=== PATIENT | female | born 1940 | race Caucasian/White ===

== ENCOUNTER 2016-08-12 21:30 | Emergency (ER) | payer OTHER ==
[~2016-08-12] VITALS: Ht 144.8 cm; Wt 68.4 kg
[~2016-08-12 21:30] MED LIST: ASPI325T45 PO; ATOR-26 PO; DIPH25CA37 PO; KETO0.5S33 OPR; LORA-741 PO; LOSA1TAB38 PO; METO-596 PO; PANT40TA PO; PRED1SUS3 OPR
[2016-08-12 21:40] VITALS: TEMP 37; Ht 144.8 cm; Wt 68.4 kg
[2016-08-12] MEDS ORDERED: DIPH25CA48 PO (22:13)
[2016-08-12] MEDS ORDERED: AMLO2.5T PO (22:13)
--- NOTE | 2016-08-12 22:27 | EMERGENCY ROOM VISIT NOTE ---
ED Visit Note First contact with patient: 21:56 Patient was seen by our PA/PIPELINER. I was involved in the patient's care and did evaluate the patient myself. I was involved in the care throughout the ER stay. The patient presents after accidentally ingesting a few of someone else's medications. The poison center was contacted and the meds and the amounts taken are not concerning. She can be discharged home.
--- NOTE | 2016-08-12 22:32 | EMERGENCY ROOM VISIT NOTE ---
ED Visit Note First contact with patient: 21:56 Chief Complaint: Wrong Meds/Belching & Shakes History of Present Illness: Patient is a 76-year-old female who presents to the emergency department for evaluation after accidentally ingesting an incorrect medication. She reports that she and her son both take her medications at 8 PM. She accidentally took 2, 300 mg lithium tablets and one 10 mg Abilify tablet at 8:10 PM. She knew immediately she took the wrong medication. She became very anxious and concerned. She felt shaky, but reports that she felt like this was related to her anxiety. She declines any other symptoms. She denies any headaches, dizziness, lightheadedness, chest pain, palpitations, shortness of breath nausea, vomiting, abdominal pain. She reports that she has been belching. She denies any other substance use or alcohol use. Medications: Reviewed and discussed with the patient. Allergies: No known allergies. PMH: Hypertension, myocardial infarction, hyperlipidemia SHx: Patient is a 76-year-old female who lives locally. ROS: All pertinent positive and negative review of systems are appropriately documented in the History of Present Illness. Physical Exam: VITAL SIGNS - Vital signs and nursing notes were reviewed. GENERAL - 76-year-old female appearing her stated age who is in no acute distress. Communicates well with provider and answers questions appropriately. SKIN - Without rashes. HEAD - NC/AT. EYES - PERRL with EOMI bilaterally. Sclera anicteric. Palpebral conjunctiva pink and moist with no injection noted. EARS - No deformities of external structures noted on gross examination bilaterally. No pain elicited with palpation of the tragus bilaterally. External auditory canals without discharge or otorrhea. Tympanic membranes pearly ramos without retraction or bulging. No fluid or purulent material visualized behind the TM. Handle of malleus, umbo, cone of light, pars tensa/ flaccid all easily visualized. NOSE - Midline and without cyanosis. No epistaxis or purulent drainage noted. Septum midline without deviation or septal hematoma noted. MOUTH/OROPHARYNX - Without perioral cyanosis. Buccal mucosa pink and moist and without leukoplakia. Tongue midline with equal elevation of palate bilaterally. No tonsillar hypertrophy, erythema, or exudates noted. NECK - Neck with FROM. Supple to palpation. No lymphadenopathy noted. No nuchal rigidity. LUNGS - Chest wall symmetric without accessory muscle use, intercostals retractions, or central cyanosis. Normal vesicular breath sounds CTA B/L. No wheezes, rales, or rhonchi appreciated. CARDIAC - RRR with S1/S2. No murmur, rubs, or gallops appreciated. ABDOMEN - Abdominal contour obese without pulsations or visible masses. BS normoactive all four quadrants. No tenderness, palpable masses, hepatosplenomegaly, or ascites noted. EXTREMITIES - No clubbing or peripheral cyanosis. No pretibial edema present. +3 /5 radial and dorsalis pedis pulses palpated throughout. +5/5 strength noted in UE/LE bilaterally. NEUROLOGIC - Cranial nerves II through XII grossly intact. Sensory intact to light touch throughout. PSYCH - A&Ox3 and cooperates fully with examiner. Pt is very pleasant and interacts well with examiner. ED Course: Patient was seen and evaluated by myself. I did have a lengthy discussion with the patient regarding her ingestion. I contacted the [facility]. They do not feel that any intervention is necessary at this point. They report that they would not have suggested the patient come to the emergency department for any monitoring with the low dose taken. They suggest refrain from driving throughout the night as well as being cautious with changes in position if awake and night secondary to drowsiness from the medications. This information was relayed to the patient. She feels much better at this time. Case was discussed with my attending physician who independently evaluated the patient and agrees with the diagnostic approach and treatment plan. Patient educated on worrisome symptoms for return visit to the emergency department. Patient discharged home in good condition. In the evaluation and treatment of this patient, the following differential diagnoses were considered: Hypoglycemia, Barbiturate Toxicity, Benzodiazepine Toxicity, Depression and Suicidality, Diabetic Ketoacidosis, Encephalitis, Ethylene Glycol Toxicity, Meningitis, Metabolic Acidosis, Opioid Toxicity, CVA, TIA, Intracranial Abnormality, Acute Psychosis, Amongst Others. Impression: Accidental Medication Ingestion Discharge Instructions: You have been seen in the emergency department today for an accidental medication ingestion. Please return to your regularly scheduled doses of medications tomorrow morning. Do not drive or operate heavy machinery for the remainder of the evening. Be cautious with changes in position through out the night. Return for any changing or worsening symptoms. Current/Historical Medications Scheduled Amlodipine (Norvasc), 2.5 MG PO QAM Aspirin (Aspirin), 325 MG PO QAM Atorvastatin (Lipitor), 80 MG PO QAM Diphenhydramine HCl (Diphenhydramine HCl), 25 MG PO HS Lorazepam (Ativan), 0.5 MG PO HS Losartan Potassium (Cozaar), 100 MG PO QAM Metoprolol Tartrate (Lopressor), 100 MG PO BID Pantoprazole (Protonix), 40 MG PO QAM Allergies Coded Allergies: NO KNOWN DRUG ALLERGIES (Verified Allergy, Unknown, ., 08/12/16) Vital Signs Date Time Temp Pulse Resp B/P Pulse Ox O2 Delivery O2 Flow Rate FiO2 08/12/16 22:42 80 18 158/85 92 08/12/16 21:40 37.0 74 18 154/88 95 Room Air Departure Information Impression Primary Impression: Accidental medication error Dispostion Home / Self-Care Condition GOOD Referrals Binu Lewis D.O. (PCP) Patient Instructions My [facility] Additional Instructions You have been seen in the emergency department today for an accidental medication ingestion. Please return to your regularly scheduled doses of medications tomorrow morning. Do not drive or operate heavy machinery for the remainder of the evening. Be cautious with changes in position through out the night. Return for any changing or worsening symptoms. Problem Qualifiers Primary Impression: Accidental medication error Encounter type: initial encounter Qualified Codes: T50.901A - Poisoning by unspecified drugs, medicaments and biological substances, accidental ( unintentional), initial encounter
[2016-08-12 22:42] VITALS: BP 158/85; PULSE 80; O2SAT 92
== END 2016-08-12 22:43 | disposition home or self-care (01) ==
LOC: EDBD 21:30 → C.EDB 21:30
DX: T43.591A Poisoning by other antipsychotics and neuroleptics, accidental (unintentional), initial encounter (principal); I10 Essential (primary) hypertension; I25.2 Old myocardial infarction; E78.5 Hyperlipidemia, unspecified; Z79.82 Long term (current) use of aspirin; Z79.899 Other long term (current) drug therapy

== ENCOUNTER 2016-11-17 11:13 | Emergency (ER) | payer OTHER ==
[~2016-11-17 11:13] MED LIST changes: +AMLO2.5T PO; +BND25CL PO; -DIPH25CA37 PO; -KETO0.5S33 OPR; -PRED1SUS3 OPR
[2016-11-17 11:15] VITALS: TEMP 36.6; Ht 147.3 cm
--- NOTE | 2016-11-17 11:36 | EMERGENCY ROOM VISIT NOTE ---
ED Visit Note First contact with patient: 11:22 CHIEF COMPLAINT: knee pain HISTORY OF PRESENT ILLNESS: This 76-year-old female patient presents to the emergency department ambulatory after sustaining an injury to the right knee when she fell 3 days ago. The patient denies any other injuries besides their knee. The patient admits to swelling and bruising. There is pain over the anterior aspect of the knee. They rate the pain as sharp and 4/10. The patient states they are able to walk on it with an antalgic gait. No numbness or tingling. No previous injuries to this knee. No ankle, foot or hip pain. She denies calf pain, tenderness or swelling. She denies fevers. REVIEW OF SYSTEMS: A 10 system review of systems was completed with positives and pertinent negatives listed in the HPI. ALLERGIES: No known drug allergies MEDICATIONS: See nursing notes PMH: Hypertension, hyperlipidemia, GERD SOCIAL HISTORY: The patient lives locally with family. She does not smoke PHYSICAL EXAM: Vital Signs: Reviewed Nurse's notes, vital signs stable. GENERAL : This is a 76-year-old female, no acute distress, but appears in pain, well- developed, well-nourished. MENTAL STATUS: Alert, oriented to person place and time, and cooperative. MUSCULOSKELETAL: The right knee is moderately swollen. There is moderate ecchymosis. There is moderate joint effusion present. The patient is tender over the anterior aspect of knee, particularly over the patella and proximal tibia. There is no significant joint line tenderness. The patella does not subluxate. Range of motion is intact but painful. Strength of the quads and hamstrings is 5/5. Margie's is negative. Peter's and Anterior Drawer tests are negative for obvious laxity. There is no obvious laxity with varus and valgus stressing. The foot and toes are warm and well-perfused. Dorsalis pedis pulse 2+. Sensation to pain and light touch is intact. Capillary refill less than 2 seconds. EMERGENCY DEPARTMENT COURSE: I examined the patient. X-rays of the right knee were reviewed by myself and read by radiology and reveal arthritis and joint effusion but no obvious fracture. The patient was placed in an BARTOLO wrap under my direction and the position was satisfactory. The patient declined crutches or a walker. The patient does have a very minimal amount of erythema. She will appear placed on Keflex for potential infected bursitis or cellulitis. She has been taking Tylenol without any significant improvement. She will be given a very small prescription for [place]. She has an appointment scheduled with orthopedics on November 27 and should keep this appointment She should return to the ER with any worsening symptoms, fevers, worsening redness or swelling or generalized worsening symptoms The patient was also seen and examined by who agrees with the assessment and treatment plan. The patient was discharged home in good condition. RIGHT KNEE 3 VIEWS CLINICAL HISTORY: Right knee pain and swelling following fall. COMPARISON: None FINDINGS: Alignment of the right knee is anatomic. There is a small right knee joint effusion. There is no fracture. There is extensive chondrocalcinosis within the menisci. There is moderate osteophytosis of the right knee. There is mild narrowing of the patellofemoral joint space. IMPRESSION: 1. No acute fracture. 2. Small right knee joint effusion. 3. Infrapatellar/prepatellar soft tissue swelling. 4. Extensive chondrocalcinosis within the menisci. Current/Historical Medications Scheduled Amlodipine (Norvasc), 2.5 MG PO QAM Aspirin (Aspirin), 325 MG PO QAM Atorvastatin (Lipitor), 80 MG PO QAM Cephalexin Monohydrate (Keflex), 500 MG PO TID Diphenhydramine HCl (Diphenhydramine HCl), 25 MG PO HS Lorazepam (Ativan), 0.5 MG PO HS Losartan Potassium (Cozaar), 100 MG PO QAM Metoprolol Tartrate (Lopressor), 100 MG PO BID Pantoprazole (Protonix), 40 MG PO QAM Scheduled PRN Hydrocodone/Acetaminophen 5MG/325MG ([place] 5MG/325MG), 1 TABLET PO Q8 PRN for Pain Allergies Coded Allergies: NO KNOWN DRUG ALLERGIES (Verified Allergy, Unknown, ., 11/17/16) Vital Signs Date Time Temp Pulse Resp B/P (MAP) Pulse Ox O2 Delivery O2 Flow Rate FiO2 11/17/16 12:49 68 18 154/76 97 11/17/16 11:15 36.6 63 18 160/64 94 Room Air Departure Information Impression Primary Impression: Knee effusion, right Additional Impressions: Knee contusion Traumatic hematoma of knee Dispostion Home / Self-Care Condition GOOD Prescriptions Hydrocodone/Acetaminophen 5MG/325MG ([place] 5MG/325MG) Tab 1 TABLET PO Q8 Y for Pain, #9 TAB For Initial Treatment Prov: Judy Olivares PA-C 11/17/16 Cephalexin Monohydrate (Keflex) 500 Mg Cap 500 MG PO TID for 7 Days, #21 CAP Prov: Judy Olivares PA-C 11/17/16 Referrals No Doctor, Assigned (PCP) Kiko Silveira D.O. Patient Instructions Knee Pain, My [facility] Additional Instructions Keflex as prescribed, until finished [place] 1/2-1 tablet every 8 hours if needed for worse pain. Do not drink or drive while taking [place] and do not take with Tylenol. Do not take the [place] with Ativan and Benadryl as they are too sedating together Keep the appointment with orthopedics Wear the Bartolo wrap when up and about Return to the emergency Department with any worsening redness, swelling, warmth , fevers or generalized worsening pain Problem Qualifiers Additional Impressions: Knee contusion Encounter type: initial encounter Laterality: right Qualified Codes: S80.01XA - Contusion of right knee, initial encounter Traumatic hematoma of knee Encounter type: initial encounter Laterality: right Qualified Codes: S80.01XA - Contusion of right knee, initial encounter
--- NOTE | 2016-11-17 12:04 | DIAGNOSTIC IMAGING REPORT ---
RIGHT KNEE 3 VIEWS CLINICAL HISTORY: Right knee pain and swelling following fall. COMPARISON: None FINDINGS: Alignment of the right knee is anatomic. There is a small right knee joint effusion. There is no fracture. There is extensive chondrocalcinosis within the menisci. There is moderate osteophytosis of the right knee. There is mild narrowing of the patellofemoral joint space. IMPRESSION: 1. No acute fracture. 2. Small right knee joint effusion. 3. Infrapatellar/prepatellar soft tissue swelling. 4. Extensive chondrocalcinosis within the menisci. Electronically signed by: Elías Nicole M.D. 11/17/2016 12:03 PM Dictated Date/Time: 11/17/2016 12:01 PM
--- NOTE | 2016-11-17 12:16 | EMERGENCY ROOM VISIT NOTE ---
ED Visit Note First contact with patient: 11:22 Patient was seen by our PA/[facility] WORK[facility]. I was involved in the patient's care and did evaluate the patient myself. I was involved in the care throughout the ER stay. The patient fell onto her right knee. The area is contused and there is some mild erythema consistent with possibly the start of cellulitis. Films do not show fracture, arthritis was seen. The patient is being discharged home.
[2016-11-17] MEDS ORDERED: HYDR-5688 PO (12:28)
[2016-11-17] MEDS ORDERED: CEPH500C PO (12:28)
[2016-11-17 12:49] VITALS: BP 154/76; PULSE 68; O2SAT 97
== END 2016-11-17 12:54 | disposition home or self-care (01) ==
LOC: C.EDB 11:13 → C.EDD 12:54
DX: M25.461 Effusion, right knee (principal); S80.01XA Contusion of right knee, initial encounter; W19.XXXA Unspecified fall, initial encounter; M17.11 Unilateral primary osteoarthritis, right knee; I10 Essential (primary) hypertension; K21.9 Gastro-esophageal reflux disease without esophagitis; Z79.82 Long term (current) use of aspirin; Z79.899 Other long term (current) drug therapy

== ENCOUNTER 2017-11-08 02:29 | Inpatient (IN) | payer OTHER ==
[2017-11-08] VITALS (9 sets, daily range): BP systolic 146–211; BP diastolic 65–156; PULSE 66–87; TEMP 36.7–36.8; O2SAT 90–97; Ht 147.3 cm; Wt 72.0 kg
[~2017-11-08] VITALS: Ht 147.3 cm; Wt 72.0 kg
[~2017-11-08 02:29] MED LIST changes: +ASPECOTC PO; -ASPI325T45 PO; -BND25CL PO; +DIPH25CA48 PO
--- NOTE | 2017-11-08 03:15 | EMERGENCY ROOM VISIT NOTE ---
History Report prepared by Uriah: Marisa Garces Under the Supervision of: Dr. Fariha Wheeler D.O. First contact with patient: 02:33 Chief Complaint: RESPIRATORY PROBLEMS Stated Complaint: BREATHING DIFFICULTY Nursing Triage Summary: shortness of breath burning in throat around 2300 History of Present Illness The patient is a 77 year old female who presents to the Emergency Room with complaints of constant esophageal burning beginning about 4 hours ago. She notes her symptoms began as a little cough, beginning when she layed down for bed. The patient notes it hurts to swallow and she is experiencing some ear pain. She reports she has experienced this burning in the past, and takes Pantoprazole once daily, before bed, and did as usual tonight. She notes she has been taking Pantoprazole for some time, and had been taking a different medication for these symptoms in the past. The patient notes the burning sensation made it difficult to breathe, which she has not experienced before. She states she put ice on her neck and on her ears, which relieved her symptoms for a while. The patient reports she then began coughing again, and took Chloraseptic throat spray, which did not relieve her symptoms. She notes she is still experiencing a burning sensation and sore throat, but her cough and difficulty breathing have resolved. The patient denies pain extending to her back, pain down her arms, nausea, fevers, vomiting, bowel movement changes, black or bloody stools, abdominal pain, dizziness, lightheadedness, or palpitations. She states she feels slightly better now that she is sitting up. The patient notes she sleeps upright on two pillows usually. She states she has not eaten anything that she believes would cause reflux, and ate steak and macaroni and cheese. She denies recently consuming alcohol, coffee, soda, or marinara sauce. The patient denies recent illness or change in medications. States chronically has LE edema, this usually resolves with elevation. She denies a history of an endoscopy. The patient notes she had a heart attack in 1992. Source of History: patient Onset: 4 hours ago Position: throat Quality: burning Timing: constant Modifying Factors (Relieving): ice, other (not relieved by Chloraseptic) Associated Symptoms: + cough, No nausea, No vomiting, No abdominal pain, No melena, No hematochezia Review of Systems See HPI for pertinent positives & negatives. A total of 10 systems reviewed and were otherwise negative. Past Medical & Surgical Medical Problems: (1) Anxiety (2) CAD (coronary artery disease) (3) Diabetes mellitus, type II (4) GERD (gastroesophageal reflux disease) (5) GERD (gastroesophageal reflux disease) (6) HLD (hyperlipidemia) (7) HTN (hypertension) (8) Osteoporosis Social History Problems: (1) Chest pain Family History No pertinent family history stated. Social History Smoking Status: Former Smoker Housing Status: lives with family Occupation Status: retired Current/Historical Medications Scheduled Amlodipine Besylate (Amlodipine Besylate), 5 MG PO DAILY Aspirin (Aspirin), 325 MG PO QAM Atorvastatin (Lipitor), 80 MG PO QAM Diphenhydramine HCl (Diphenhydramine HCl), 25 MG PO HS Lorazepam (Ativan), 0.5 MG PO HS Losartan Potassium (Cozaar), 100 MG PO QAM Metoprolol Tartrate (Lopressor), 100 MG PO BID Pantoprazole (Protonix), 40 MG PO QAM Scheduled PRN Hydrocodone/Acetaminophen 5MG/325MG ([place] 5MG/325MG), PO Q4H PRN for Pain Nitroglycerin (Nitrostat), 1 TAB SL UD PRN for chest pain Allergies Coded Allergies: Lisinopril (Verified Allergy, Intermediate, RASH, 11/08/17) and cough Zolpidem (Verified Adverse Reaction, Severe, hallucinations, 11/09/17) Physical Exam Vital Signs Date Time Temp Pulse Resp B/P (MAP) Pulse Ox O2 Delivery O2 Flow Rate FiO2 11/08/17 08:17 80 22 164/73 95 Nasal Cannula 2.0 11/08/17 07:35 95 Nasal Cannula 2.0 11/08/17 07:15 84 11/08/17 07:12 86 22 159/72 95 Nasal Cannula 2.0 11/08/17 05:57 80 Room Air 11/08/17 05:44 71 20 185/79 95 Nasal Cannula 2.0 11/08/17 05:42 95 Nasal Cannula 2.0 11/08/17 05:42 95 Nasal Cannula 2.0 11/08/17 05:40 83 Room Air 11/08/17 04:32 76 20 146/74 90 Room Air 11/08/17 02:38 78 11/08/17 02:37 93 Room Air 11/08/17 02:37 36.8 78 20 171/70 93 Room Air Physical Exam GENERAL: alert, well appearing, well nourished, no distress, non-toxic EYE EXAM: normal conjunctiva, PERRL and EOM's grossly intact OROPHARYNX: no exudate, no erythema, lips, buccal mucosa, and tongue normal and mucous membranes are moist NECK: supple, no nuchal rigidity, no adenopathy, non-tender LUNGS: Normal chest wall mechanics. Expiratory wheeze on L lung HEART: no murmurs, S1 normal and S2 normal ABDOMEN: abdomen soft, non-tender, normo-active bowel sounds, no masses, no rebound or guarding. BACK: Back is symmetrical on inspection and there is no deformity, no midline tenderness, no CVA tenderness. SKIN: no rashes and no bruising UPPER EXTREMITIES: upper extremities are grossly normal. LOWER EXTREMITIES: 1+ edema b/l NEURO EXAM: Normal sensorium, cranial nerves II-XII grossly intact, normal speech, no gross weakness of arms, no gross weakness of legs. Medical Decision & Procedures ER Provider Diagnostic Interpretation: Radiology results have been interpreted by the radiologist and reviewed by me. CT CHEST With Contrast: There is artifact limiting evaluation for small peripheral PE. No central PE. Cardiomegaly. Questionable trace right pleural fluid. Hiatal hernia. Borderline mediastinal and hilar nodes. Bilateral lung opacities with airspace opacities which may represent pneumonia. Recommend follow-up to resolution. Possible septal thickening, example lung bases with some artifact limiting evaluation. Indeterminate right upper lobe mass measuring about 2.4 cm maximum axial dimension with some adjacent suspected scarring. Left renal cyst and other nonemergent/incidentals. Radiologist: Salomon Tinoco M.D. CHEST X RAY Single view Cardiomegaly. No effusions. No wide mediastinum. No focal consolidation. No acute pulmonary edema. Laboratory Results Test 11/08/17 02:35 11/08/17 05:25 Immature Granulocyte % (Auto) 0.5 % White Blood Count 8.41 K/uL (4.8-10.8) Red Blood Count 4.43 M/uL (4.2-5.4) Hemoglobin 13.3 g/dL (12.0-16.0) Hematocrit 40.4 % (37-47) Mean Corpuscular Volume 91.2 fL (80-100) Mean Corpuscular Hemoglobin 30.0 pg (25-34) Mean Corpuscular Hemoglobin Concent 32.9 g/dl (32-36) Platelet Count 195 K/uL (130-400) Mean Platelet Volume 10.7 fL (7.4-10.4) Neutrophils (%) (Auto) 53.5 % Lymphocytes (%) (Auto) 34.4 % Monocytes (%) (Auto) 9.3 % Eosinophils (%) (Auto) 1.8 % Basophils (%) (Auto) 0.5 % Neutrophils # (Auto) 4.51 K/uL (1.4-6.5) Lymphocytes # (Auto) 2.89 K/uL (1.2-3.4) Monocytes # (Auto) 0.78 K/uL (0.11-0.59) Eosinophils # (Auto) 0.15 K/uL (0-0.5) Basophils # (Auto) 0.04 K/uL (0-0.2) Immature Granulocyte # (Auto) 0.04 K/uL (0.00-0.02) Prothrombin Time 10.0 SECONDS (9.0-12.0) Prothromb Time International Ratio 1.0 (0.9-1.1) D-Dimer 1320 ug/L FEU (0-500) Magnesium Level 1.9 mg/dl (1.8-2.4) Total Bilirubin 0.4 mg/dl (0.2-1) Aspartate Amino Transf (AST/SGOT) 23 U/L (15-37) Alanine Aminotransferase (ALT/SGPT) 32 U/L (12-78) Alkaline Phosphatase 141 U/L (45-117) Pro-B-Type Natriuretic Peptide 1044 pg/ml (0-1800) Total Protein 6.7 gm/dl (6.4-8.2) Albumin 3.3 gm/dl (3.4-5.0) Globulin 3.4 gm/dl (2.5-4.0) Albumin/Globulin Ratio 1.0 (0.9-2) Troponin I < 0.015 ng/ml (0-0.045) Laboratory results per my review. Medications Administered Medications (Trade) Dose Ordered Sig/Juana Route Start Time Stop Time Status Last Admin Dose Admin Miscellaneous Medication (Gi Cocktail) 24 ml NOW STAT PO 11/08/17 03:42 11/08/17 03:43 DC 11/08/17 03:49 24 ML Sodium Chloride 500 ml @ 999 mls/hr Q31M STAT IV 11/08/17 04:05 11/08/17 04:35 DC 11/08/17 04:14 999 MLS/HR Albuterol/ Ipratropium (Duoneb) 3 ml NOW STAT INH 11/08/17 06:16 11/08/17 06:17 DC 11/08/17 06:18 3 ML ECG Per My Interpretation Indication: SOB/dyspnea Rate (beats per minute): 76 Rhythm: normal sinus Findings: no acute ischemic change, no ectopy, other (normal intervals. ) ED Course 0244: The patient was evaluated in room B9. A complete history and physical exam was performed. 0342: Ordered GI cocktail 24 ml PO, Lidocaine HCl 20 ml .route, Maalox Susp 30 ml .route 0405: Ordered Sodium Chloride 500 ml @ 999 mls/hr IV 0415: Ordered Ioversol 100 ml IV 0458: I reevaluated the patient. She is feeling much better following GI cocktail. 0614: Ordered Duoneb 3 ml .route 0618: I reevaluated and updated the patient. 0652: I reviewed the patient's case with Dr. Bear, [facility] hospitalist. He will evaluate the patient for further management. Medical Decision Differential diagnoses includes but is not limited to pneumonia, bronchitis, COPD/Asthma exacerbation, pneumothorax, pulmonary embolism, congestive heart failure, acute coronary syndrome Pt initial presentation thought to be likely exacerbation of GERD given hx despite use of a PPI. Pt labs reassuring including two neg trop. CT angio negative fpr PE. Mass noted and discussed outpt f/u with pt given hx of smoking. Pt denied SOB while in the ED and sx had all resolved with GI cocktail. As a precaution, ambulatory pulse ox was performed and sats dropped despite pt denying SOB. Pt given a neb tx and retested and still dropped. Case discussed with hospitalist for additional evaluation given concern for hypoxia. No evidence of vascular etiology, doubt pneumonia/effusion. No evidence of CHF. Pt aware of results and is in agreement with plan. Medication Reconcilliation Current Medication List: was personally reviewed by me Blood Pressure Screening Patient's blood pressure: Elevated blood pressure Blood pressure disposition: Referred to PCP (referred to hospitalist) Consults Time Called: 0648 Consulting Physician: [facility] hospitalist Returned Call: [phone] I reviewed the patient's case with [facility]. He will evaluate the patient for further management. Impression Primary Impression: Hypoxia Additional Impressions: Chest pain GERD (gastroesophageal reflux disease) Scribe Attestation The scribe's documentation has been prepared under my direction and personally reviewed by me in its entirety. I confirm that the note above accurately reflects all work, treatment, procedures, and medical decision making performed by me. Departure Information Dispostion Being Evaluated By Hospitalist Referrals Binu Lewis, DRichyO. (PCP) Patient Instructions My [facility] Problem Qualifiers Additional Impressions: Chest pain Chest pain type: unspecified Qualified Codes: R07.9 - Chest pain, unspecified GERD (gastroesophageal reflux disease) Esophagitis presence: esophagitis presence not specified Qualified Codes: K21.9 - Gastro-esophageal reflux disease without esophagitis
[2017-11-08] MEDS ORDERED: GI COCKTAIL PO STA (03:42)
[2017-11-08] MEDS ORDERED: ALUMINUM/MAGNESIUM SUSP 30 ML UDC ONE (03:47)
[2017-11-08] MEDS ORDERED: LIDOCAINE HCL 2% VISC SOLN 20 ML UDC ONE (03:47)
[2017-11-08 03:55] LABS: BASO % 0.5 %; BASO ABS # 0.04 K/uL (0-0.2); EOS % 1.8 %; EOS ABS # 0.15 K/uL (0-0.5); HEMATOCRIT 40.4 % (37-47); HEMOGLOBIN 13.3 g/dL (12.0-16.0); IG# 0.04 K/uL (0.00-0.02); LYMPH % 34.4 %; LYMPH ABS # 2.89 K/uL (1.2-3.4); MEAN CELL VOLUME 91.2 fL (80-100); MEAN CORPUSCULAR HGB CONC 32.9 g/dl (32-36); MEAN PLATELET VOLUME 10.7 fL (7.4-10.4); MONO % 9.3 %; MONO ABS # 0.78 K/uL (0.11-0.59); NEUT % 53.5 %; NEUT ABS # 4.51 K/uL (1.4-6.5); PLATELET COUNT 195 K/uL (130-400); RED CELL DISTRIBUTION WIDTH CV 14.4 % (11.5-14.5); RED CELL DISTRIBUTION WIDTH SD 48.3 fL (36.4-46.3); WHITE BLOOD COUNT 8.41 K/uL (4.8-10.8)
[2017-11-08] MEDS ORDERED: SODIUM CHLORIDE 0.9% 500ML 500 ML IV STA (04:05)
[2017-11-08 04:09] LABS: ALBUMIN 3.3 gm/dl (3.4-5.0); ALKALINE PHOSPHATASE 141 U/L (45-117); ALT/SGPT 32 U/L (12-78); AST/SGOT 23 U/L (15-37); BLOOD UREA NITROGEN 27 mg/dl (7-18); CALCIUM 8.1 mg/dl (8.5-10.1); CARBON DIOXIDE 30 mmol/L (21-32); CREATININE 1.44 mg/dl (0.60-1.20); GLUCOSE 113 mg/dl (70-99); SODIUM 144 mmol/L (136-145); TOTAL PROTEIN 6.7 gm/dl (6.4-8.2)
[2017-11-08] MEDS ORDERED: OPTIRAY 320 IV PRN (04:15)
[2017-11-08] MEDS ORDERED: ALBUT/IPRATROP 3MG/0.5MG NEB 3 ML VIAL ONE (06:14)
[2017-11-08] MEDS ORDERED: ALBUT/IPRATROP 3MG/0.5MG NEB 3 ML VIAL INH STA (06:16)
--- NOTE | 2017-11-08 06:54 | DIAGNOSTIC IMAGING REPORT ---
(CHEST FOR PE) ANGIO WITH CT DOSE: 417.40 mGy.cm HISTORY: 77 years-old Female with presents with acute shortness of breath, atypical chest pain and elevated d-dimer level. TECHNIQUE: Multiple CTA images of the chest were obtained after the intravenous administration of 118 ml Optiray 320. Coronal and sagittal MIPS were obtained from the axial data set and were submitted for review. A dose lowering technique was utilized adhering to the principles of ALARA. COMPARISON: Chest radiograph of same day FINDINGS: CTA: Moderate multichamber cardiac enlargement. No pericardial effusion. Coronary arterial calcifications are noted. Moderate calcification of the aorta without aneurysm or dissection. The imaged great vessels appear to be patent. Reflux of contrast into the IVC. Pulmonary arterial tree is opacified to the level of the subsegmental branches. The segmental and subsegmental branches however are not well-seen secondary to respiratory motion. No definite filling defects identified to suggest pulmonary thromboembolic disease. CT CHEST: Heterogeneous appearance of the thyroid. Mildly enlarged subcarinal lymph node measures 1.6 x 1.1 cm. Prominent nonenlarged paratracheal and right hilar lymph nodes are seen measuring up to 8-9 mm in short axis. There is a suggested trace amount of pleural fluid at the level of the right lung base. No pneumothorax. Mild subpleural bleb formation about the lung apices. There is an ovoid masslike nodule of the anterior segment right upper lobe on image 194 series 4 measures 2.1 x 1.5 x 1.7 cm in AP, transverse and craniocaudal dimensions respectively. There is adjacent linear subsegmental pleural based density within the adjacent right upper lobe suggesting atelectasis/scarring. There are two terminal bronchi which extend to the caudal portion of this nodule on image 188 series 4. Groundglass opacity within the right upper lobe measuring 8 mm is noted peripherally on image 176 series 4. There are multifocal groundglass bronchovascular distribution of opacities within the lower lobes, right greater the left with right basilar bronchial wall thickening and intralobular septal thickening. To lesser extent, bronchovascular distribution of groundglass opacities with bronchial wall thickening also noted within the lingula. Tortuosity of the trachea. Large sized hiatal hernia with partially intrathoracic stomach. Probable cyst of the superior pole left kidney, 2.9 cm. No acute process of the imaged upper abdomen. The soft tissues and breast parenchyma appear unremarkable. Demineralized appearance of the bones with multilevel term changes. No suspicious lytic or blastic bony lesions. IMPRESSION: 1. 2.1 cm ovoid masslike nodule of the anterior segment right upper lobe is suspicious for bronchogenic carcinoma. 2. Bronchitis with bibasilar bronchovascular distribution of patchy groundglass densities and intralobular septal thickening suggests pneumonia or aspiration pneumonitis with a background of mild pulmonary edema. 3. Enlarged subcarinal and prominent paratracheal and right hilar lymph nodes are likely reactive with metastatic disease also within the differential. 4. No acute aortic pathology or pulmonary thromboembolic disease. 5. Cardiomegaly. 6. Large hiatal hernia. Please refer to below summary of Fleischner criteria recommendations for follow-up of incidental CT nodules (Johnathan Zee, Guidelines for management of small pulmonary nodules detected on CT scans: A statement from the Fleischner Society, Radiology 237: [phone].) SOLID NODULES Solitary nodule size: >8 mm * either low or high risk patients - consider follow-up CT at 3 months, and/or CT-PET, and/or biopsy Note: newly detected indeterminate nodule in persons 35 years of age or older. * Low risk patients: minimal or absent history of smoking and/or other known risk factors * high risk patients: history of smoking or of other known risk factors (e.g. first degree relative with lung cancer, or exposure to asbestos, radon, uranium) * if a nodule up to 8 mm is partly solid or is ground glass further follow-up is required after 24 months to exclude possible slow growing adenocarcinoma (MAGO) The above report was generated using voice recognition software. It may contain grammatical, syntax or spelling errors. Electronically signed by: Haim Norris M.D. 11/08/2017 6:53 AM Dictated Date/Time: 11/08/2017 6:41 AM
--- NOTE | 2017-11-08 07:00 | DIAGNOSTIC IMAGING REPORT ---
CHEST ONE VIEW PORTABLE CLINICAL HISTORY: Shortness of breath. COMPARISON STUDY: No previous studies for comparison. FINDINGS: Lung volumes are normal. There is no pneumothorax. Note is made of moderate cardiomegaly. Mild right lower lung airspace opacity is present. A 2.1 cm right suprahilar nodule is better depicted on the subsequent chest CT. No pleural effusion is present. A hiatal hernia is noted. IMPRESSION: 1. 2.1 cm right suprahilar pulmonary nodule which is better depicted on the chest CT. Please see that report for further description. 2. Mild right lower lung opacity which favors an infectious process. 3. Moderate cardiomegaly. Electronically signed by: Elías Nicole M.D. 11/08/2017 6:59 AM Dictated Date/Time: 11/08/2017 6:56 AM
[2017-11-08] MEDS ORDERED: ALUMINUM/MAGNESIUM/SIMETH (MAALOX MAX) 30 ML UDC PO PRN (09:00)
[2017-11-08] MEDS ORDERED: ACETAMINOPHEN 325 MG TAB PO PRN (09:00)
[2017-11-08] MEDS ORDERED: ONDANSETRON INJ 2 MG/ML 2 ML VIAL IV PRN (09:00)
[2017-11-08] MEDS ORDERED: NRV5 PO (09:09)
[2017-11-08] MEDS ORDERED: NTRGSL4 SL (09:11)
--- NOTE | 2017-11-08 09:11 | History and Physical ---
History & Physical Date & Time of Service: Nov 08, 2017 at 09:11 Chief Complaint: Breathing Difficulty Primary Care Physician: Binu Lewis D.O. History of Present Illness Source: patient, clinic records, hospital records This is a 77-year-old female with a PMH of CAD, HTN, HLD, DM II, GERD and other medical problems listed below who presents with burning in her throat beginning last evening. Patient states she was in her normal state of health and was taking her evening medication before going to bed. After taking medication, began to experience constant burning in her throat and ears, feeling like they were "on fire". Endorses a cough with some productive sputum beginning at this time as well as feeling like she could not catch her breath. Denies choking or aspiration after taking pills. States that burning pain feels like her acid reflux but much more severe. Takes pantoprazole every evening before bed, which usually controls GERD symptoms. Came to ED for further evaluation of burning sensation in throat as well as shortness of breath. Was found to be hypoxic at 83% on room air. Does not require home O2 at baseline. Quit smoking 25 years ago (h/o 35 pack years). Endorses increased leg swelling L>R. Denies fever, chills, lightheadedness, visual changes, ear pain, difficulty swallowing, sore throat, wheezing, hemoptysis, chest pain, abdominal pain, nausea, vomiting, bowel or bladder changes or lower extremity swelling. Underwent an ultrasound of neck for painless left-sided mass in August, which was found to be a simple cyst. PCP is Dr. Lewis. Past Medical/Surgical History Medical Problems: (1) Anxiety Status: Chronic (2) CAD (coronary artery disease) Status: Chronic (3) Diabetes mellitus, type II Status: Chronic (4) GERD (gastroesophageal reflux disease) Status: Chronic (5) GERD (gastroesophageal reflux disease) Status: Chronic (6) HLD (hyperlipidemia) Status: Chronic (7) HTN (hypertension) Status: Chronic (8) Osteoporosis Status: Chronic Social History Problems: (1) Chest pain Status: Chronic Family History FH: heart disease Social History Smoking Status: Former Smoker (quit in 1992) Alcohol Use: none Drug Use: none Housing status: lives with family (lives with son ) Occupational Status: retired Allergies Coded Allergies: Lisinopril (Verified Allergy, Intermediate, RASH, 11/08/17) and cough Zolpidem (Verified Adverse Reaction, Severe, hallucinations, 11/09/17) Home Medications Scheduled Amlodipine Besylate (Amlodipine Besylate), 5 MG PO DAILY Aspirin (Aspirin), 325 MG PO QAM Atorvastatin (Lipitor), 80 MG PO QAM Diphenhydramine HCl (Diphenhydramine HCl), 25 MG PO HS Lorazepam (Ativan), 0.5 MG PO HS Losartan Potassium (Cozaar), 100 MG PO QAM Metoprolol Tartrate (Lopressor), 100 MG PO BID Pantoprazole (Protonix), 40 MG PO QAM Scheduled PRN Hydrocodone/Acetaminophen 5MG/325MG ([place] 5MG/325MG), PO Q4H PRN for Pain Nitroglycerin (Nitrostat), 1 TAB SL UD PRN for chest pain Review of Systems Constitutional: No fever, No chills, No weakness, No fatigue Eyes: No worsening of vision ENT: + problem reported (burning in throat), No hearing loss, No sore throat Respiratory: + cough, + sputum (white), + shortness of breath, No wheezing, No hemoptysis Cardiovascular: No chest pain, No palpitations Abdomen: No pain, No nausea, No vomiting, No diarrhea, No constipation Genitourinary - Female: No dysuria, No urinary frequency, No urinary urgency, No hematuria Neurologic: No weakness, No numbness/tingling Integumentary: No rash, No new/changing skin lesions Physical Exam Vital Signs Date Time Temp Pulse Resp B/P (MAP) Pulse Ox O2 Delivery O2 Flow Rate FiO2 11/08/17 08:17 80 22 164/73 95 Nasal Cannula 2.0 11/08/17 07:35 95 Nasal Cannula 2.0 11/08/17 07:15 84 11/08/17 07:12 86 22 159/72 95 Nasal Cannula 2.0 11/08/17 05:57 80 Room Air 11/08/17 05:44 71 20 185/79 95 Nasal Cannula 2.0 11/08/17 05:42 95 Nasal Cannula 2.0 11/08/17 05:42 95 Nasal Cannula 2.0 11/08/17 05:40 83 Room Air 11/08/17 04:32 76 20 146/74 90 Room Air 11/08/17 02:38 78 11/08/17 02:37 93 Room Air 11/08/17 02:37 36.8 78 20 171/70 93 Room Air General Appearance: WD/WN, no apparent distress Head: normocephalic, atraumatic Eyes: normal inspection, PERRL, sclerae normal ENT: normal ENT inspection, hearing grossly normal, pharynx normal (moist mucous membranes ) Neck: supple, no adenopathy, thyroid normal, trachea midline Respiratory/Chest: chest non-tender, lungs clear, normal breath sounds, no respiratory distress, no accessory muscle use Cardiovascular: regular rate, rhythm, no murmur, normal peripheral pulses Abdomen/GI: normal bowel sounds, non tender, soft, no organomegaly Back: normal inspection Extremities/Musculoskelatal: normal inspection, no calf tenderness, normal capillary refill, no pedal edema Neurologic/Psych: no motor/sensory deficits, alert, normal mood/affect, oriented x 3 Skin: normal color, warm/dry, no rash Diagnostics Laboratory Results Results Past 24 Hours Test 11/08/17 02:35 11/08/17 05:25 Range/Units White Blood Count 8.41 4.8-10.8 K/uL Red Blood Count 4.43 4.2-5.4 M/uL Hemoglobin 13.3 12.0-16.0 g/dL Hematocrit 40.4 37-47 % Mean Corpuscular Volume 91.2 80-100 fL Mean Corpuscular Hemoglobin 30.0 25-34 pg Mean Corpuscular Hemoglobin Concent 32.9 32-36 g/dl Platelet Count 195 130-400 K/uL Mean Platelet Volume 10.7 7.4-10.4 fL Neutrophils (%) (Auto) 53.5 % Lymphocytes (%) (Auto) 34.4 % Monocytes (%) (Auto) 9.3 % Eosinophils (%) (Auto) 1.8 % Basophils (%) (Auto) 0.5 % Neutrophils # (Auto) 4.51 1.4-6.5 K/uL Lymphocytes # (Auto) 2.89 1.2-3.4 K/uL Monocytes # (Auto) 0.78 0.11-0.59 K/uL Eosinophils # (Auto) 0.15 0-0.5 K/uL Basophils # (Auto) 0.04 0-0.2 K/uL RDW Standard Deviation 48.3 36.4-46.3 fL RDW Coefficient of Variation 14.4 11.5-14.5 % Immature Granulocyte % (Auto) 0.5 % Immature Granulocyte # (Auto) 0.04 0.00-0.02 K/uL Prothrombin Time 10.0 9.0-12.0 SECONDS Prothromb Time International Ratio 1.0 0.9-1.1 D-Dimer 1320 0-500 ug/L FEU Sodium Level 144 136-145 mmol/L Potassium Level 4.0 3.5-5.1 mmol/L Chloride Level 109 98-107 mmol/L Carbon Dioxide Level 30 21-32 mmol/L Anion Gap 5.0 3-11 mmol/L Blood Urea Nitrogen 27 7-18 mg/dl Creatinine 1.44 0.60-1.20 mg/dl Est Creatinine Clear Calc Drug Dose 27.1 ml/min Estimated GFR () 40.2 Estimated GFR (Non- 34.7 BUN/Creatinine Ratio 18.5 10-20 Random Glucose 113 70-99 mg/dl Calcium Level 8.1 8.5-10.1 mg/dl Magnesium Level 1.9 1.8-2.4 mg/dl Total Bilirubin 0.4 0.2-1 mg/dl Aspartate Amino Transf (AST/SGOT) 23 15-37 U/L Alanine Aminotransferase (ALT/SGPT) 32 12-78 U/L Alkaline Phosphatase 141 45-117 U/L Troponin I < 0.015 < 0.015 0-0.045 ng/ml Pro-B-Type Natriuretic Peptide 1044 0-1800 pg/ml Total Protein 6.7 6.4-8.2 gm/dl Albumin 3.3 3.4-5.0 gm/dl Globulin 3.4 2.5-4.0 gm/dl Albumin/Globulin Ratio 1.0 0.9-2 Diagnostic Radiology CXR: IMPRESSION: 1. 2.1 cm right suprahilar pulmonary nodule which is better depicted on the chest CT. Please see that report for further description. 2. Mild right lower lung opacity which favors an infectious process. 3. Moderate cardiomegaly. Chest/thorax CTA: IMPRESSION: 1. 2.1 cm ovoid masslike nodule of the anterior segment right upper lobe is suspicious for bronchogenic carcinoma. 2. Bronchitis with bibasilar bronchovascular distribution of patchy groundglass densities and intralobular septal thickening suggests pneumonia or aspiration pneumonitis with a background of mild pulmonary edema. 3. Enlarged subcarinal and prominent paratracheal and right hilar lymph nodes are likely reactive with metastatic disease also within the differential. 4. No acute aortic pathology or pulmonary thromboembolic disease. 5. Cardiomegaly. 6. Large hiatal hernia. Please refer to below summary of Fleischner criteria recommendations for follow-up of incidental CT nodules (Johnathan Zee, Guidelines for management of small pulmonary nodules detected on CT scans: A statement from the Fleischner Society, Radiology 237: [id number].) SOLID NODULES Solitary nodule size: >8 mm * either low or high risk patients - consider follow-up CT at 3 months, and/or CT-PET, and/or biopsy Note: newly detected indeterminate nodule in persons 35 years of age or older. Normal EKG Impression Assessment and Plan This is a 77-year-old female with a PMH of CAD, HTN, HLD, DM II, GERD and other medical problems listed below who presents with burning in her throat beginning last evening and was found to have aspiration PNA, previously undiagnosed COPD and a RUL pulmonary nodule. Acute hypoxic respiratory failure -2/2 RUL nodule, mild RLL opacity -83% on room air initially, now saturation at 95% on 2L NC -Continue supplemental O2 PRN RUL pulmonary nodule -Chest/thorax CTA with 2.1 cm ovoid masslike nodule of the anterior segment right upper lobe is suspicious for bronchogenic carcinoma -H/o smoking, quit 25 years ago -Pulm consulted -Dr. Carolina plans for navigation [facility] as well as endobronchial ultrasound in the OR in the morning -NPO after midnight with IV fluids -Ultrasound to the lower extremities to rule out DVT given her potential for possible RUL malignancy Aspiration pneumonia -Developed a burning sensation in throat, cough last evening after aspirating on pills -Aspiration precautions -Unasyn for now -Increased PPI to BID -Speech eval COPD -Diagnosed on CT scan, asymptomatic previously -History of 35 pack years -Per pulm, -Echocardiogram to assess the pulmonary artery pressure -Continue with bronchodilators. -Hold off on systemic steroids at this point Acute kidney injury -Baseline Cr ~1, GFR >60 -Currently 1.44, GFR 35 -Per Fena calculation, intrinsic injury -Hold losartan -Recheck in AM HTN -BP elevated initially -- did not take AM medications -Improved after given home amlodipine, losartan, Lopressor -Continue home meds HLD -Continue Lipitor Anxiety, insomnia -Cont Ativan, Benadryl at night DM II -Diet controlled -A1c pending DVT Ppx: SQ heparin. May need to hold in setting of pulmonary procedure Code status: FULL per discussion with patient PCP: Debbie Dispo: Admitted to med/surg. Discharge planning ordered. Patient seen in collaboration with Dr. Aparicio. Please see addendum. Attending addendum: Agree with the above H&P; please refer to above for more details The patient was seen and examined with Lucila Browne PA-C Patient presented to the hospital for "burning pain" in her throat and ear that started last night. She tried using ice packs but they were not helpful. She denies any dysphagia, reflux, coughing, or choking episodes prior the burning pain. She denies any chest pain or palpitations. In the ER she was noted to be hypoxic. Cardiac: RR, S1 and S2 auscultated, no JVD, no peripheral edema Resp: CTA B/L, no wheezes/rales/rhonchi GI: soft, NT, ND, +BS ACUTE HYPOXIC RESPIRATORY FAILURE: likely bronchitis vs aspiration pneumonitis -was 83% on RA -now requiring oxygen supplementation to maintain sats above 90 -CTA thorax was negative for PE, however showed a 2.1 cm mass suspicious for bronchoalveolar ca, enlarged or reactive subcarinal, paratracheal and right hilar lymph nodes, and changes consistent with bronchitis or a pneumonitis -Pulm consulted regarding the mass -continue on nebs -Spech eval and aspiration precautions until evaluated Advanced Directives Existing Living Will: No Existing Power of Messenger Floorperson: No Resuscitation Status VTE Prophylaxis Will order VTE Prophylaxis: Yes
[2017-11-08] MEDS ORDERED: NITROGLYCERIN 0.4 MG SL PER TAB CHARGE SL PRN (09:15)
[2017-11-08] MEDS ORDERED: AMPICILLIN/SULBACTAM CONSULT ACTIVE PRN (09:15)
[2017-11-08] MEDS ORDERED: ASPIRIN 325 MG ECTAB PO ONE (10:00)
[2017-11-08] MEDS ORDERED: METOPROLOL TARTRATE 100 MG TAB PO ONE (10:00)
[2017-11-08] MEDS ORDERED: PANTOprazole SOD 40 MG TAB PO ONE (10:00)
[2017-11-08] MEDS ORDERED: AMLODIPINE BESYLATE 5 MG TAB PO ONE (10:00)
[2017-11-08] MEDS ORDERED: ATORVASTATIN 40 MG TAB PO ONE (10:00)
[2017-11-08] MEDS ORDERED: AMPICILLIN/SULBACTAM SOD INJ 3,000 MG in SODIUM CHLORIDE 0.9% 100ML 100 ML IV ONE (10:00)
[2017-11-08] MEDS ORDERED: HYDR-5688 PO (12:06)
[2017-11-08] MEDS ORDERED: HYDROCODONE/ACETAMIN 5/325MG TAB PO PRN (12:15)
--- NOTE | 2017-11-08 12:22 | Pulmonary Consultation ---
History General Date of Service: Nov 08, 2017. Stated Complaint: Hypoxia, Pna(Pneumonia), Rt Upr Lobe Pulmonary HPI Dear Lucila: Thank you for your kind referral Mrs. Corona to pulmonary service. This is 77 -year-old female with history of 08-mook-ltag of smoking, quit 25 years ago, had a history of severe GERD with hiatal hernia, history of hypertension hyperlipidemia, does not use any inhalers or oxygen at home, she has been very active even around her house including mowing her lawn according to the family, developed an episode of sudden onset shortness of breath after she felt regurgitation of stomach contents. Her who had a [employer] and pushed the line put in and called the ambulance where they came in and brought her to the hospital. The patient was started on minimal amount of oxygen and was admitted to the hospital for further management. The patient denies any syncopal episode, no chest pain was reported. No epigastric pain. No nausea or vomiting and no diarrhea reported. The patient has increased swelling in her lower extremities recently thought to be related to her blood pressure medications but it has been asymmetrical with left ankle being more swollen than the right.. She has not been admitted in the past for any respiratory issues. No recent travel, no sick contact, her family were at the bedside and I was talking to them in regard of her condition and all their questions been answered. The patient review of system otherwise was unremarkable. The patient underwent a CAT scan of the chest which showed incidental finding of mediastinal lymphadenopathy as well as right upper lobe lesion measuring 2 cm in the anterior segment of the right upper lobe, and I was asked to evaluate the patient in that regard. Historian: patient, other (Records) Review of Systems Constitutional: denies: no symptoms, as stated in HPI, chills, diaphoresis, fever, malaise, weakness, weight gain, weight loss, other Eyes: denies: no symptoms, as stated in HPI, eye pain, tearing, itching, redness, discharge, double vision, visual changes, blurred vision, photophobia, other ENT: denies: no symptoms, as stated in HPI, ear pain, ear discharge, loss of hearing, tinnitus, nasal pain, nasal congestion, rhinorrhea, epistaxis, sore throat, stridor, throat swelling, mouth pain, mouth swelling, dental pain, gum swelling, other Cardiovascular: denies: no symptoms, as stated in HPI, chest pain, chest pressure, chest tightness, diaphoresis, edema, intermittent claudication, orthopnea, palpitations, syncope, other Respiratory: reports: shortness of breath (Sudden onset accompanied also with feeling of regurgitation of gastric content into the airways.) Gastrointestinal: reports: other (Heartburn) Musculoskeletal: denies: no symptoms, as stated in HPI, arthralgias, neck pain , back pain, joint pain, joint swelling, deformity, myalgias, muscle spasms, other Neurologic: denies: no symptoms, as stated in HPI, headache, dizziness, general weakness, focal weakness, numbness, tingling, paresthesia, pre-existing deficit, tremors, tics, vertigo, seizure, lethargy, memory loss, other Psychiatric: denies: no symptoms, as stated in HPI, anxiety, depression, suicidal ideation, homicidal ideation, visual hallucinations, auditory hallucinations, mood changes, alcohol abuse, drug abuse, other Hematologic / Lymphatic: denies: no symptoms, as stated in HPI, abnormal clotting, adenopathy, anemia, easy bleeding, easy bruising, gums bleeding, petechiae, other Past Medical History Past Medical History: History of hypertension, hyperlipidemia, COPD but only by CAT scan criteria and has not been treated and the patient is asymptomatic for it. Hiatal hernia and GERD. Family History FH: heart disease Social History Hx Tobacco Use In Past Year?: No (QUIT 1992) Smoking Status: Former Smoker (quit in 1992) Housing status: lives with family (lives with son ) Occupational Status: retired History of MDRO History of MDRO: No Allergies Coded Allergies: Zolpidem (Verified Allergy, Severe, hallucinations, 11/08/17) Lisinopril (Verified Allergy, Intermediate, RASH, 11/08/17) and cough Current Medications Reported Home Medications Medications Dose Route/Sig Max Daily Dose Days Date Category Dose Instructions [place] 5MG/325MG (Acetaminophen/Hydrocodone Bitart) Tab PO Q4H PRN 11/08/17 Reported Nitrostat (Nitroglycerin) 0.4 Mg/1 Tab Subl 1 Tab SL UD PRN 11/08/17 Reported Maximum three doses HOLD if SBP < 100 Amlodipine Besylate 5 Mg Tab 5 Mg PO DAILY 11/08/17 Reported Diphenhydramine HCl 25 Mg Cap 25 Mg PO HS 08/12/16 Reported Ativan (Lorazepam) 0.5 Mg Tab 0.5 Mg PO HS 03/02/16 Reported Cozaar (Losartan Potassium) 100 Mg Tab 100 Mg PO QAM 03/02/16 Reported Lipitor (Atorvastatin Calcium) 80 Mg Tab 80 Mg PO QAM 03/02/16 Reported Protonix (Pantoprazole Sodium) 40 Mg Tab 40 Mg PO QAM 03/02/16 Reported Lopressor (Metoprolol Tartrate) 100 Mg Tab 100 Mg PO BID 03/02/16 Reported Aspirin 325 Mg Tab 325 Mg PO QAM 03/02/16 Reported Physical Physical Exam Vital Signs: Date Time Temp Pulse Resp B/P (MAP) Pulse Ox O2 Delivery O2 Flow Rate FiO2 11/08/17 11:21 76 149/73 (98) 11/08/17 11:10 36.8 87 22 193/132 (152) 91 Nasal Cannula 2.0 211/156 (174) 11/08/17 10:50 36.8 76 18 163/80 96 11/08/17 10:06 76 18 163/80 96 Nasal Cannula 2.0 11/08/17 08:17 80 22 164/73 95 Nasal Cannula 2.0 11/08/17 07:35 95 Nasal Cannula 2.0 11/08/17 07:15 84 11/08/17 07:12 86 22 159/72 95 Nasal Cannula 2.0 11/08/17 05:57 80 Room Air 11/08/17 05:44 71 20 185/79 95 Nasal Cannula 2.0 11/08/17 05:42 95 Nasal Cannula 2.0 11/08/17 05:42 95 Nasal Cannula 2.0 11/08/17 05:40 83 Room Air 11/08/17 04:32 76 20 146/74 90 Room Air 11/08/17 02:38 78 11/08/17 02:37 93 Room Air 11/08/17 02:37 36.8 78 20 171/70 93 Room Air General Appearance: NO APPARENT DISTRESS Eyes: EOMI, SCLERAE NORMAL ENT: NORMAL THROAT EXAM Neck: TRACHEA MIDLINE Respiratory: BREATH SOUNDS NORMAL Cardiovasular: NORMAL S1S2, NO M/G/R, NO MURMUR, NO GALLOP Abdomen: NON TENDER, NO REBOUND, NO MASSES, NO GUARDING, NO ORGANOMEGALY Upper Extremities: NO EDEMA Lower Extremities: edema (Asymmetrical with left greater than right.) Neuro: ALERT, ORIENTED x 3, NORMAL MOTOR EXAM, NORMAL SENSATION Psychiatric: NORMAL AFFECT Diagnostics Labs Results Past 24 Hours Test 11/08/17 02:35 11/08/17 05:25 Range/Units White Blood Count 8.41 4.8-10.8 K/uL Red Blood Count 4.43 4.2-5.4 M/uL Hemoglobin 13.3 12.0-16.0 g/dL Hematocrit 40.4 37-47 % Mean Corpuscular Volume 91.2 80-100 fL Mean Corpuscular Hemoglobin 30.0 25-34 pg Mean Corpuscular Hemoglobin Concent 32.9 32-36 g/dl Platelet Count 195 130-400 K/uL Mean Platelet Volume 10.7 7.4-10.4 fL Neutrophils (%) (Auto) 53.5 % Lymphocytes (%) (Auto) 34.4 % Monocytes (%) (Auto) 9.3 % Eosinophils (%) (Auto) 1.8 % Basophils (%) (Auto) 0.5 % Neutrophils # (Auto) 4.51 1.4-6.5 K/uL Lymphocytes # (Auto) 2.89 1.2-3.4 K/uL Monocytes # (Auto) 0.78 0.11-0.59 K/uL Eosinophils # (Auto) 0.15 0-0.5 K/uL Basophils # (Auto) 0.04 0-0.2 K/uL RDW Standard Deviation 48.3 36.4-46.3 fL RDW Coefficient of Variation 14.4 11.5-14.5 % Immature Granulocyte % (Auto) 0.5 % Immature Granulocyte # (Auto) 0.04 0.00-0.02 K/uL Prothrombin Time 10.0 9.0-12.0 SECONDS Prothromb Time International Ratio 1.0 0.9-1.1 D-Dimer 1320 0-500 ug/L FEU Sodium Level 144 136-145 mmol/L Potassium Level 4.0 3.5-5.1 mmol/L Chloride Level 109 98-107 mmol/L Carbon Dioxide Level 30 21-32 mmol/L Anion Gap 5.0 3-11 mmol/L Blood Urea Nitrogen 27 7-18 mg/dl Creatinine 1.44 0.60-1.20 mg/dl Est Creatinine Clear Calc Drug Dose 27.1 ml/min Estimated GFR () 40.2 Estimated GFR (Non- 34.7 BUN/Creatinine Ratio 18.5 10-20 Random Glucose 113 70-99 mg/dl Calcium Level 8.1 8.5-10.1 mg/dl Magnesium Level 1.9 1.8-2.4 mg/dl Total Bilirubin 0.4 0.2-1 mg/dl Aspartate Amino Transf (AST/SGOT) 23 15-37 U/L Alanine Aminotransferase (ALT/SGPT) 32 12-78 U/L Alkaline Phosphatase 141 45-117 U/L Troponin I < 0.015 < 0.015 0-0.045 ng/ml Pro-B-Type Natriuretic Peptide 1044 0-1800 pg/ml Total Protein 6.7 6.4-8.2 gm/dl Albumin 3.3 3.4-5.0 gm/dl Globulin 3.4 2.5-4.0 gm/dl Albumin/Globulin Ratio 1.0 0.9-2 Diagnostic Radiology CAT scan of the chest showed anterior segment of the right upper lobe lesion measuring 2 cm. Lymphadenopathy noted also in the subcarinal area and in station 4R. COPD changes with dilated pulmonary artery. Impression Assessment and Plan 1. Aspiration event likely secondary to hiatal hernia and GERD. 2. COPD, untreated. 3. Right upper lobe lesion measuring 2 cm, with lymphadenopathy in the right hilum and subcarinal area. 4. Asymmetrical leg edema. Plan: 1. I have discussed with the patient the need for biopsy, whether transbronchial or transthoracic, they favored a transbronchial procedure. I will plan for navigation [facility] as well as endobronchial ultrasound in the OR in the morning. 2. I will keep the patient n.p.o. after midnight. 3. Start IV fluids after midnight. 4. Obtain ultrasound to the lower extremities to rule out DVT given her potential for possible right upper lobe malignancy. 5. Echocardiogram to assess the pulmonary artery pressure. 6. Continue with bronchodilators. 7. I will hold off on systemic steroids at this point. 8. Change PPI to twice daily. 9. May add Reglan or erythromycin if needed. 10. Discussed with the family in details, informed about the risk and benefit of the procedure including bleeding, requiring intubation, pneumothorax requiring chest tube, hemodynamic instability as well. All their questions been answered and he agreed to the procedure. Thank you, will follow.
[2017-11-08] MEDS: HEPARIN SOD 5000 UNIT/0.5 ML CARP SQ SCH (12:23)
[2017-11-08] MEDS ORDERED: PERFLUTREN LIPID MICROSPHERE (DEFINITY) IV ONE (15:19)
[2017-11-08] MEDS: ALBUT/IPRATROP 3MG/0.5MG NEB 3 ML VIAL INH SCH ×2 (15:20→19:40)
[2017-11-08 15:53] LABS: CREATININE RANDOM URINE 36.4 mg/dl
--- NOTE | 2017-11-08 17:02 | DIAGNOSTIC IMAGING REPORT ---
VENOUS DOPPLER LWR EXT BILA HISTORY: Pain. Edema. swelling left lower ext COMPARISON STUDY: None. FINDINGS: There is normal compressibility, flow, and augmentation within the bilateral lower extremity deep venous systems. IMPRESSION: No DVT within the right or left lower extremity. Note is made of a 1.5 x 5 cm popliteal cyst posterior to the right knee. The above report was generated using voice recognition software. It may contain grammatical, syntax or spelling errors. Electronically signed by: Enrique Reyes M.D. 11/08/2017 5:01 PM Dictated Date/Time: 11/08/2017 5:00 PM
--- NOTE | 2017-11-08 18:50 | Anesthesiology Progress Note ---
Anesthesia Progress Note Date of Service Nov 08, 2017. Progress Notes The patient is a 71 y/o female with a h/p COPD ( 35 pack year smoking history, quit 25 years ago), AR, CAD, HTN, DLD, large hiatal hernia, severe GERD, diet controlled DM and anxiety scheduled for navigation bronchoscopy tomorrow after a RUL lesion was found incidentally on CT of the chest. The patient was admitted with aspiration pneumonia as a result of her large hiatal hernia and severe GERD. She stated that she had a burning sensation in her throat after taking her pills and then suddenly became short of breath. Her oxygen saturation on admission was 83% on room air. A CT of the chest was done and showed aspiration pneumonia vs pneumonitis as well as a new right upper lobe 2.1 cm lesion suspicious for bronchogenic carcinoma. She has been started on Unasyn for her aspiration pneumonia. Prior to admission, the patient states that she was gardening and able to walk up a hill without chest pain or shortness of breath. She denied any current dyspnea and states that her cough has improved. She is currently saturating 94% on 2L nc and her lungs are clear to auscultation bilaterally. An echo was ordered to assess pulmonary artery pressures and is pending. The patient was consented for GA. All questions were answered. She was instructed to remain NPO after midnight except for a sip of water with medications.
[2017-11-08] MEDS: LORAZEPAM 0.5 MG TAB PO SCH (21:28)
[2017-11-08] MEDS: METOPROLOL TARTRATE 100 MG TAB PO SCH (21:29)
[2017-11-08] MEDS: PANTOprazole SOD 40 MG TAB PO SCH (21:30)
[2017-11-08] MEDS: AMPICILLIN/SULBACTAM SOD INJ 3,000 MG in SODIUM CHLORIDE 0.9% 100ML 100 ML IV SCH (21:32)
[2017-11-09] VITALS (7 sets, daily range): BP systolic 133–178; BP diastolic 60–80; PULSE 64–70; TEMP 36.8–37; O2SAT 92–98
[2017-11-09] MEDS ORDERED: D5W AND 1/2NSS 1,000 ML IV SCH
[2017-11-09] MEDS: ALBUT/IPRATROP 3MG/0.5MG NEB 3 ML VIAL INH SCH ×4 (07:04→19:05)
[2017-11-09 07:14] LABS: HEMATOCRIT 37.3 % (37-47); HEMOGLOBIN 12.1 g/dL (12.0-16.0); MEAN CELL VOLUME 92.1 fL (80-100); MEAN CORPUSCULAR HEMOGLOBIN 29.9 pg (25-34); MEAN CORPUSCULAR HGB CONC 32.4 g/dl (32-36); MEAN PLATELET VOLUME 10.2 fL (7.4-10.4); PLATELET COUNT 152 K/uL (130-400); RED CELL DISTRIBUTION WIDTH CV 14.4 % (11.5-14.5); RED CELL DISTRIBUTION WIDTH SD 49.2 fL (36.4-46.3); WHITE BLOOD COUNT 7.71 K/uL (4.8-10.8)
[2017-11-09 07:22] LABS: HEMOGLOBIN A1C 6.4 % (4.5-5.6)
[2017-11-09 07:49] LABS: CALCIUM 8.1 mg/dl (8.5-10.1); CREATININE 0.94 mg/dl (0.60-1.20); POTASSIUM 3.9 mmol/L (3.5-5.1)
[2017-11-09] MEDS: ASPIRIN 325 MG ECTAB PO SCH (09:00)
[2017-11-09] MEDS ORDERED: LOSARTAN POTASSIUM 50 MG TAB PO SCH (09:00)
[2017-11-09] MEDS ORDERED: PANTOprazole SOD 40 MG TAB PO SCH (09:00)
[2017-11-09] MEDS: ATORVASTATIN 40 MG TAB PO SCH (09:00)
[2017-11-09] MEDS: METOPROLOL TARTRATE 100 MG TAB PO SCH ×2 (09:00→21:15)
[2017-11-09] MEDS: PANTOprazole SOD 40 MG TAB PO SCH ×2 (09:00→21:16)
--- NOTE | 2017-11-09 09:26 | ECHOCARDIOGRAM REPORT ---
*NOTICE TO RECEIVING DEMOCRAT AGENCY This information is strictly Confidential and protected under [place] law. [place] law prohibits you from making any further disclosure of this information unless further disclosure is expressly permitted by the written consent of the person to whom it pertains or is authorized by law. A general authorization for the release of medical or other information is not sufficient for this purpose. Hospital accepts no responsibility if the information is made available to any other person, INCLUDING THE PATIENT. Interpretation Summary * Name: MARY ZARAGOZA Study Date: 11/08/2017 02:23 PM BP: 149/73 mmHg * Patient Location: .[id number]\S\1 HR: 76 * : 1940 (M/d/yyyy) Gender: Female Height: 58 in * Age: 77 yrs Ethnicity: [place] Weight: 158 lb * Ordering Physician: Carli Carolina * Performed By: Lazara Anna RDCS * * Reason For Study: PULMONARY HTN * BSA: 1.6 m2 * -- Conclusions -- * Normal LV chamber size with moderate concentric LVH. * Normal LV systolic function. * There is a small sized basal inferior and posterior wall motion abnormality with mild hypokinesis to * akinesis of the segments, otherwise, hyperdynamic wall motion, EF 60-65%. * Grade I diastolic dysfunction. * Mild mitral regurgitation. * TR jet inadequate to accurately assess RVSP. Procedure Details * A complete two-dimensional transthoracic echocardiogram was performed (2D, M-mode, Doppler and color flow Doppler). * A contrast injection of Definity was performed to improve assessment of LV function. * Contrast was injected into an intravenous site in the right arm. * One vial of Definity ultrasound contrast was diluted in normal saline to a total volume of 10 ml. A total of '2' ml of solution was administered during imaging. * Lot # [id number] of Definity utilized for procedure. * Expiration date 09/11. * The attending nurse who injected the contrast agent was JAZMIN DINERO RN. Left Ventricle * The left ventricle is normal in size. * There is moderate concentric left ventricular hypertrophy. * Ejection Fraction = 60-65%. * Left ventricular systolic function is normal. * There is a small sized basal inferior and posterior wall motion abnormality with mild hypokinesis to akinesis of the segments, otherwise, hyperdynamic wall motion, EF 60-65%. Right Ventricle * The right ventricular cavity size is normal (basal dimension <4.2 cm in right ventricular apical 4-chamber view). * The right ventricular systolic function is qualitatively normal. Atria * The left atrial size is normal. * Right atrial size is normal. * No ASD detected; PFO is not assessed. Mitral Valve * The mitral valve anatomy is normal. * There is no mitral valve stenosis. * There is mild mitral regurgitation. Tricuspid Valve * The tricuspid valve is normal in structure and function. Aortic Valve * The aortic valve is normal in structure and function. Pulmonic Valve * The pulmonary valve is not well seen, but the Doppler examination is normal without significant regurgitation or stenosis. Great Vessels * The aortic root and proximal ascending aorta are normal sized. Pericardium/Pleural * There is no pericardial effusion. Great Vessels * Normal inferior vena cava size and collapsability with sniff indicates a normal right atrial pressure of 3 mmHg Left Ventricular Diastolic Function * Grade I diastolic dysfunction, (abnormal relaxation pattern). MMode 2D Measurements and Calculations IVSd 1.8 cm IVSs 1.9 cm LVIDd 3.9 cm LVIDs 2.5 cm LVPWd 1.6 cm LVPWs 2.0 cm IVS/LVPW 1.1 FS 34.9 % EDV(Teich) 66.4 ml ESV(Teich) 23.4 ml EF(Teich) 64.8 % EDV(cubed) 59.8 ml ESV(cubed) 16.5 ml EF(cubed) 72.4 % % IVS thick 4.7 % % LVPW thick 21.6 % LV mass(C)d 276.9 grams LV mass(C)dI 168.1 grams/m\S\2 LV mass(C)s 204.0 grams LV mass(C)sI 123.8 grams/m\S\2 CO(Teich) 2.8 l/min CI(Teich) 1.7 l/min/m\S\2 SV(Teich) 43.0 ml SI(Teich) 26.1 ml/m\S\2 CO(cubed) 2.9 l/min CI(cubed) 1.7 l/min/m\S\2 SV(cubed) 43.3 ml SI(cubed) 26.3 ml/m\S\2 ACS 1.2 cm LA dimension 3.2 cm asc Aorta Diam 2.8 cm LVOT diam 1.8 cm LVOT area 2.5 cm\S\2 LVAd ap4 27.1 cm\S\2 LVLd ap4 7.6 cm EDV(MOD-sp4) 78.9 ml LVAs ap4 12.4 cm\S\2 LVLs ap4 5.5 cm ESV(MOD-sp4) 23.2 ml EF(MOD-sp4) 70.6 % LVAd ap2 21.8 cm\S\2 LVLd ap2 6.5 cm EDV(MOD-sp2) 61.1 ml LVAs ap2 10.6 cm\S\2 LVLs ap2 5.5 cm ESV(MOD-sp2) 17.9 ml EF(MOD-sp2) 70.7 % CO(MOD-sp4) 3.7 l/min CI(MOD-sp4) 2.2 l/min/m\S\2 SV(MOD-sp4) 55.7 ml SI(MOD-sp4) 33.8 ml/m\S\2 CO(MOD-sp2) 2.9 l/min CI(MOD-sp2) 1.7 l/min/m\S\2 SV(MOD-sp2) 43.2 ml SI(MOD-sp2) 26.2 ml/m\S\2 Doppler Measurements and Calculations MV E max chandrika 99.4 cm/sec MV A max chandrika 102.8 cm/sec MV E/A 0.97 MV dec time 0.23 sec Ao V2 max 126.0 cm/sec Ao max PG 6.4 mmHg Ao max PG (full) 3.4 mmHg JT(V,A) 1.7 cm\S\2 JT(V,D) 1.7 cm\S\2 LV V1 max PG 2.9 mmHg LV V1 max 85.4 cm/sec MR max chandrika 553.0 cm/sec MR max PG 122.3 mmHg PA V2 max 75.2 cm/sec PA max PG 2.3 mmHg TR max chandrika 228.7 cm/sec
[2017-11-09] MEDS: AMPICILLIN/SULBACTAM SOD INJ 3,000 MG in SODIUM CHLORIDE 0.9% 100ML 100 ML IV SCH ×3 (10:55→22:43)
[2017-11-09] MEDS ORDERED: FENTANYL CITRATE INJ 50 MCG/1 ML 2 ML VIAL ONE (11:22)
[2017-11-09] MEDS ORDERED: FENTANYL CITRATE INJ 50 MCG/1 ML 2 ML VIAL IV PRN (11:45)
[2017-11-09] MEDS ORDERED: ONDANSETRON INJ 2 MG/ML 2 ML VIAL IV PRN (11:45)
[2017-11-09] MEDS ORDERED: ATROPINE SULFATE 0.1 MG/ML 5ML SYR IV PRN (11:45)
[2017-11-09] MEDS ORDERED: EpHEDrine SULFATE INJ 50 MG/ML AMP IV PRN (11:45)
--- NOTE | 2017-11-09 11:48 | History & Physical Bridge Note ---
H&P Re-Evaluation Bridge Note: I have examined the patient, reviewed the History & Physical and in the interval since the performance of the History & Physical I have noted the following changes of clinical significance: No changes noted pt planned for ENB and Ebus in the OR for RUL lesion and mediastinal LN. consent obtained , explained in details, agreed to the procedure, no contraindication.
[2017-11-09] MEDS ORDERED: ONDANSETRON INJ 2 MG/ML 2 ML VIAL ONE (12:28)
[2017-11-09] MEDS ORDERED: NEOSTIGMINE METHYLSULFATE 5 MG/5 ML SYR ONE (12:28)
[2017-11-09] MEDS ORDERED: PROPOFOL IV EMULSION 10 MG/ML 20 ML VIAL ONE (12:28)
[2017-11-09] MEDS ORDERED: DEXAMETHASONE SOD INJ 4 MG/ML VIAL ONE (12:28)
[2017-11-09] MEDS ORDERED: ROCURONIUM BROMIDE 10 MG/ML 5 ML VIAL ONE (12:28)
[2017-11-09] MEDS ORDERED: GLYCOPYRROLATE INJ 0.2 MG/ML VIAL ONE (12:28)
[2017-11-09] MEDS ORDERED: LIDOCAINE HCL 2% 2 ML VIAL (20MG/ML) ONE (12:28)
[2017-11-09] MEDS ORDERED: PHENYLEPHRINE HCL INJ 10 MG/ML VIAL ONE (12:47)
[2017-11-09] MEDS ORDERED: LARYING-O-JET KIT (LTA) ONE (13:15)
--- NOTE | 2017-11-09 13:54 | DIAGNOSTIC IMAGING REPORT ---
CHEST 1 VIEW FRONTAL CLINICAL HISTORY: NAVIGATIONAL BRONCH COMPARISON STUDY: Chest CTA 11/08/2017. FINDINGS: Total fluoroscopy time was 1 minute and 30 seconds. Single fluoroscopic spot image of the right chest was submitted. There is a bronchoscope identified within the right perihilar location. IMPRESSION: Fluoroscopy provided for bronchoscopy. Electronically signed by: Saúl Abdalla M.D. 11/09/2017 1:53 PM Dictated Date/Time: 11/09/2017 1:52 PM
--- NOTE | 2017-11-09 14:01 | Procedure Note ---
Procedure Note Procedure Date Nov 09, 2017. Procedure Description Procedure Name: Bronchoscopy with electromagnetic navigation and endobronchial ultrasound. Procedure time out: side/site verified, patient ID confirmed, correct procedure Consent obtained: written Performed by: attending Indications: diagnostic Contraindications: none Description: Procedure is bronchoscopy with endobronchial electromagnetic navigation bronchoscopy and endobronchial ultrasound. Consent obtained from the patient, risk and benefit explained details agreed to the procedure. The procedure was done in the OR. Timeout was performed by the nursing staff, appreciate their assistance. The procedure done with the assistance of respiratory therapy, appreciate their input. The patient had the procedure under general anesthesia, appreciate the anesthesia team input. 1. bronchoscopy with conventional through #8 ET tube. The bronchoscope passed through the blue adapter, and the tracheobronchial tree examined from RB 1 to RB 10 and LB 1 to LB 10. Noted to have mild amount of inspissated secretions mainly in the right middle lobe. No endobronchial lesions were noted. Mucosal changes secondary to history of smoking in the past. 2. Endobronchial ultrasound was used, the balloon was tested, the endobronchial ultrasound, Olympus, passed through the blue adapter, and a surveillance was done from 11 R, 7R, 4R, 4L, 2R, noted small lymphadenopathy measuring approximately between 5-15 mm at maximum radius. Using Cook catheter for obtaining a specimen for lymphadenopathy. The findings and the procedures were done as follows: #1 The catheter passed through the working channel, after visualizing the 7R station lymph nodes, the passage was done after advancing the catheter barely to be seen at the screen. The balloon also was inflated primarily and was seen at the [place] at the bottom of the screen, 2 cm juliet was placed, the inner stylet was removed, and suction was applied, using one jagged movement into the lymph node, visualized on the screen, 15 passes passed through, and the suction was stopped after removal of the needle, the guard was placed backward, and the catheter also was retracted, and the catheter was removed and specimen was prepped by the respiratory therapy and the dirt supervisor at the bedside. Appreciate their input. All other specimens were obtained in the same manner. #2 Station 7R was sampled 4 samples with the same manner as above. Specimen was prepped and lymphoid tissue was noted, atypical bronchial cells but there is no malignant cells were noted. 2 of the specimens were only bloody material. #3 Station 2R sampled 3 by the same manner as above, specimens showed also lymphoid tissue without evidence of malignancy. #4 Station 4R was sampled 3 passes using the same manner as above, 2 samples were bloody and the other 2 samples showed lymphoid tissue with no atypical cells. #5 Station for L with a small lymph node measuring 7 mm, sampled with one pass , and it was with lymphoid tissue and negative for atypical cells. #6 The endobronchial ultrasound catheter was removed, and the balloon was deflated and the endobronchial ultrasound bronchoscope was removed and the balloon was tested and it was intact. #7 After completing the endobronchial ultrasound the patient moved to the next age with navigational bronc. 3. Electromagnetic navigational bronc was used using [place] [facility] and ENB CD loaded to the system, registration and mapping was done, after passing the therapeutic bronchoscopy through #8 ET tube, the LG was passed also and registration points 5 was identified and the manual registration was done as well as the automatic registration failed to register all 5 points. The LG passed through the the anterior segment of the right upper lobe. The LG was advanced up until 0.4 cm from the lesion noted on the tract. The LG roll examiner was removed and after that specimen was obtained as follows: #1 Needle was sent through the LG catheter under fluoroscopy, needle was advanced into the lesion, and specimen was obtained 3, agitated needle into the lesion was noted, no pneumothorax by fluoroscopy after the third pass. #2 Cytology brush was obtained 2 through the LG catheter, I was placed on the prep. Specimen was adequate for evaluation for both the needle and the brush, both were consistent with positive malignancy. Mostly non-small cell adenocarcinoma. Confirmation is pending. #3 A biopsy 8 was obtained using a forceps through the LG, a specimen was confirmed under fluoroscopy. Specimen was sent in formalin and touch prep was also obtained which was confirming the above findings. #4 To mension, radial ultrasound was used initially and confirmed the presence of the lesion at the tip of the LG catheter. #5 4 cc of 1-10,000 epinephrine were injected into cc increments, followed with air for hemostasis. #6 Cytology washing was obtained as well with retraction of the LG after injecting 10 mL 2 doses and all sent for cytology and cell block. #7 Fluoroscopy was used and the patient did not have visualized pneumothorax after the procedure. #8 The bronchoscope was removed and surveillance bronchoscopy was done minimal blood loss less than 2 mL. Airways were patent. Patient was extubated and went to PACU, Appreciate all involved in the care of this patient including anesthesia, respiratory therapy, nursing staff, cytology and pathology. Total fluoroscopy time was less than 2 minutes, total OR time was 90 minutes. Thank you Complications: none Patient tolerated procedure: well
--- NOTE | 2017-11-09 14:38 | DIAGNOSTIC IMAGING REPORT ---
CHEST ONE VIEW PORTABLE HISTORY: post right upper lobe bronch biopsy COMPARISON: Chest 11/08/2017. FINDINGS: Question of a tiny right apical pleural reflection. This could represent a pneumothorax. Increased density of the right suprahilar nodule suggestive of post bronchoscopy changes. There is also progressive patchy density within the right medial lung base. The heart remains enlarged. There is mild pulmonary vascular congestion without overt edema. No pleural effusions. IMPRESSION: 1. Questionable tiny right apical pneumothorax. Follow-up chest x-ray is recommended to ensure resolution. 2. Mild pulmonary vascular congestion. 3. Progressive patchy airspace opacities within the right medial lung base. This could be due to post bronchoscopy changes or a developing pneumonia. Electronically signed by: Saúl Abdalla M.D. 11/09/2017 2:37 PM Dictated Date/Time: 11/09/2017 2:33 PM
--- NOTE | 2017-11-09 14:44 | Anesthesiology Progress Note ---
Anesthesia Post Op Note Date & Time Nov 09, 2017 at 14:44 Vital Signs Pain Intensity: 0.0 Vital Signs Past 12 Hours Date Time Temp Pulse Resp B/P (MAP) Pulse Ox O2 Delivery O2 Flow Rate FiO2 11/09/17 14:00 37.1 71 15 172/69 100 Oxymask 10 11/09/17 07:35 Nasal Cannula 2.0 11/09/17 07:04 65 18 98 Nasal Cannula 2.0 11/09/17 06:55 36.8 64 18 133/73 (93) 98 2.0 Notes Mental Status: alert / awake / arousable, participated in evaluation Pt Amnestic to Procedure: Yes Nausea / Vomiting: adequately controlled Pain: adequately controlled Airway Patency, RR, SpO2: stable & adequate BP & HR: stable & adequate Hydration State: stable & adequate Anesthetic Complications: no major complications apparent
--- NOTE | 2017-11-09 15:39 | Pulmonology Progress Note ---
Pulmonary Progress Note Date of Service Nov 09, 2017. Attending Dr. Carolina Subjective The patient remains asymptomatic, denies any shortness of breath, occasional cough no sputum production. Objective Physical exam revealed no fever, distant breath sounds bilaterally, S1-S2 regular rate and rhythm, abdomen is benign, no edema. Labs also were reviewed and are unchanged. Assessment & Plan 1. Non-small cell lung CA, preliminary report by WILLIAM, negative lymph node at station 4R, 2R, 4L, 7R. 2. COPD, gold level undetermined, however the patient is asymptomatic and does not use oxygen at home nor inhalers. 3. GERD due to severe hiatal hernia. Plan: 1. Follow the final report of the lung biopsy. 2. I reviewed the chest x-ray and I do not appreciate pneumothorax, however under the request of the radiologist report, I will repeat the chest x-ray with inspiration and expiration with PA and lateral views. 3. Continue with PPI and add Reglan. 4. Consult thoracic surgery, the patient has non-small cell lung CA with limited disease likely would be amenable to surgical intervention with intention to cure, assuming the PET scan is negative Elsewhere. 5. Resume diet. 6. Glucose control. 7. Bronchodilators. Thank you, will follow. Data Medications: Current Inpatient Medications Medications (Trade) Dose Ordered Sig/Juana Route Start Time Stop Time Status Last Admin Dose Admin Ioversol (Optiray 320) 100 ml UD PRN IV 11/08/17 04:15 11/12/17 04:14 Acetaminophen (Tylenol Tab) 650 mg Q4H PRN PO 11/08/17 09:00 12/08/17 08:59 Al Hydrox/Mg Hydrox/Simethicone (Maalox Max Susp) 15 ml Q4H PRN PO 11/08/17 09:00 12/08/17 08:59 Ondansetron HCl (Zofran Inj) 4 mg Q6H PRN IV 11/08/17 09:00 12/08/17 08:59 Heparin Sodium (Porcine) (Heparin Sq 5000 Unit/0.5ml) 5,000 unit Q12H SQ 11/08/17 09:00 12/08/17 08:59 Future Hold 11/08/17 12:23 5,000 UNIT Ampicillin Sodium/ Sulbactam Sodium (Consult) 1 ea UD PRN N/A 11/08/17 09:15 12/08/17 09:14 Amlodipine Besylate (Norvasc Tab) 5 mg DAILY PO 11/09/17 09:00 12/09/17 08:59 Aspirin (Ecotrin Tab) 325 mg QAM PO 11/09/17 09:00 12/09/17 08:59 Atorvastatin Calcium (Lipitor Tab) 80 mg QAM PO 11/09/17 09:00 12/09/17 08:59 Diphenhydramine HCl (Benadryl Cap) 25 mg HS PO 11/08/17 21:00 12/08/17 20:59 11/08/17 21:29 25 MG Lorazepam (Ativan Tab) 0.5 mg HS PO 11/08/17 21:00 12/08/17 20:59 11/08/17 21:28 0.5 MG Metoprolol Tartrate (Lopressor Tab) 100 mg BID PO 11/08/17 21:00 12/08/17 20:59 11/08/17 21:29 100 MG Nitroglycerin (Nitrostat Tab) 0.4 mg UD PRN SL 11/08/17 09:15 12/08/17 09:14 Albuterol/ Ipratropium (Duoneb) 3 ml QIDR INH 11/08/17 12:00 12/08/17 11:59 11/09/17 07:04 3 ML Dextrose/Sodium Chloride 1,000 ml @ 75 mls/hr [id number] IV 11/09/17 00:00 12/09/17 00:00 11/09/17 00:27 75 MLS/HR Pantoprazole Sodium (Protonix Tab) 40 mg BID PO 11/08/17 21:00 12/09/17 08:59 11/08/17 21:30 40 MG Acetaminophen/ Hydrocodone Bitart ([place] 5/325 Tab) 1 tab Q4H PRN PO 11/08/17 12:15 11/22/17 12:14 Ampicillin Sodium/ Sulbactam Sodium 3000 mg/Sodium Chloride 108 ml @ 216 mls/hr Q6H IV 11/09/17 16:00 11/16/17 15:59 Fentanyl Citrate (Fentanyl Inj) 25 mcg Q5M PRN IV 11/09/17 11:45 11/09/17 16:45 Ondansetron HCl (Zofran Inj) 4 mg ONE PRN IV 11/09/17 11:45 11/09/17 16:45 Ephedrine Sulfate (EpHEDrine SULFATE INJ) 5 mg Q5M PRN IV 11/09/17 11:45 11/09/17 16:45 Atropine Sulfate (Atropine Sulfate 0.1mg/ml Inj) 0.5 mg Q1M PRN IV 11/09/17 11:45 11/09/17 16:45 I & O: 24-Hour Column 11/10/17 08:00 Intake Total 800 ml Balance 800 ml Vital Signs: Date Time Temp Pulse Resp B/P (MAP) Pulse Ox O2 Delivery O2 Flow Rate FiO2 11/09/17 15:19 70 16 97 Nasal Cannula 2.0 11/09/17 14:51 137/61 11/09/17 14:50 64 20 11/09/17 14:50 64 20 97 11/09/17 14:46 136/58 11/09/17 14:45 65 15 98 11/09/17 14:45 65 15 11/09/17 14:41 143/72 11/09/17 14:40 65 12 11/09/17 14:40 36.8 66 17 143/72 98 Nasal Cannula 2 11/09/17 14:40 65 12 99 11/09/17 14:36 147/64 11/09/17 14:35 68 19 100 11/09/17 14:35 68 19 11/09/17 14:31 153/68 11/09/17 14:30 68 23 11/09/17 14:30 70 23 100 11/09/17 14:26 163/87 11/09/17 14:25 71 13 18 14:25 71 13 100 18 14:22 178/139 11/09/17 14:20 70 22 11/09/17 14:20 88 22 100 18 14:16 162/66 11/09/17 14:15 72 14 11/09/17 14:15 72 14 100 18 14:12 173/58 11/09/17 14:10 74 26 18 14:10 74 26 100 18 14:08 143/120 11/09/17 14:05 76 20 100 7/17/18 14:05 76 19 11/09/17 14:01 172/69 11/09/17 14:00 37.1 71 15 172/69 100 Oxymask 10 11/09/17 14:00 88 14 11/09/17 14:00 86 14 100 11/09/17 07:35 Nasal Cannula 2.0 11/09/17 07:04 65 18 98 Nasal Cannula 2.0 11/09/17 06:55 36.8 64 18 133/73 (93) 98 2.0 11/09/17 00:35 Nasal Cannula 2.0 11/08/17 23:29 36.7 84 20 147/65 (92) 90 2.0 11/08/17 21:27 84 166/74 (104) 11/08/17 19:40 66 18 97 Nasal Cannula 2.0 11/08/17 17:49 146/79 (101) 11/08/17 17:45 36.8 75 18 174/75 (108) 95 Nasal Cannula 2.5 11/08/17 16:00 Nasal Cannula 2.0 Laboratory Results: Last 24 Hours Test 11/08/17 20:45 11/09/17 00:17 11/09/17 06:57 11/09/17 07:02 Bedside Glucose 149 mg/dl 134 mg/dl 114 mg/dl White Blood Count 7.71 K/uL Red Blood Count 4.05 M/uL Hemoglobin 12.1 g/dL Hematocrit 37.3 % Mean Corpuscular Volume 92.1 fL Mean Corpuscular Hemoglobin 29.9 pg Mean Corpuscular Hemoglobin Concent 32.4 g/dl RDW Standard Deviation 49.2 fL RDW Coefficient of Variation 14.4 % Platelet Count 152 K/uL Mean Platelet Volume 10.2 fL Sodium Level 142 mmol/L Potassium Level 3.9 mmol/L Chloride Level 108 mmol/L Carbon Dioxide Level 29 mmol/L Anion Gap 5.0 mmol/L Blood Urea Nitrogen 16 mg/dl Creatinine 0.94 mg/dl Est Creatinine Clear Calc Drug Dose 41.5 ml/min Estimated GFR () 67.3 Estimated GFR (Non- 58.1 BUN/Creatinine Ratio 16.5 Random Glucose 118 mg/dl Estimated Average Glucose 137 mg/dl Hemoglobin A1c 6.4 % Calcium Level 8.1 mg/dl Ionized Calcium 1.07 mmol/l Test 11/09/17 15:26 Bedside Glucose 129 mg/dl
--- NOTE | 2017-11-09 15:55 | Medical Consult ---
Consultation Note Date of Service Nov 09, 2017. Consultation Note Consult Dictated #[id number]
--- NOTE | 2017-11-09 16:49 | DIAGNOSTIC IMAGING REPORT ---
CHEST INSPIRAT/EXPIRAT CLINICAL HISTORY: 77 years-old Female presenting with POSSIBLE PTX BY REPORT, WITH INSPIRATION AND EXPIRATION. TECHNIQUE: Portable upright AP views of the chest were obtained both in expiration and inspiration. COMPARISON: 11/09/2017. FINDINGS: Atherosclerosis of aortic arch. Cardiac silhouette enlarged. Pulmonary vascular prominence. Bronchial wall thickening. Right basilar density persists on inspiration. No large effusion or pneumothorax. Degenerative changes of the shoulders. Upper abdomen normal. IMPRESSION: 1. Cardiomegaly with volume overload/congestive change. No maddie pulmonary edema. 2. Right basilar opacity may represent atelectasis, infection, or aspiration. 3. No pneumothorax. Electronically signed by: John Silverman M.D. 11/09/2017 4:48 PM Dictated Date/Time: 11/09/2017 4:46 PM
[2017-11-09] MEDS: AMLODIPINE BESYLATE 5 MG TAB PO SCH (17:10)
--- NOTE | 2017-11-09 17:15 | Progress Note ---
Medicine Progress Note Date & Time of Visit: Nov 09, 2017 at 16:50 . Subjective CC: Follow-up visit for pulmonary issues and other concerns. HPI: Underwent bronchoscopy this afternoon without incident. Occasional nonproductive cough. No chest pain. No dyspnea at rest. ROS: General- no fever, no chills Resp- as noted above in HPI Cardiac- no chest pain, no edema GI- no nausea, no vomiting, no diarrhea, no constipation - no dysuria, no difficulty voiding . Objective Last 8 Hrs Date Time Temp Pulse Resp B/P (MAP) Pulse Ox O2 Delivery O2 Flow Rate FiO2 11/09/17 15:19 70 16 97 Nasal Cannula 2.0 11/09/17 15:05 37.0 69 18 145/80 (101) 92 Nasal Cannula 2.0 11/09/17 14:51 137/61 11/09/17 14:50 64 20 11/09/17 14:50 64 20 97 11/09/17 14:46 136/58 11/09/17 14:45 65 15 98 11/09/17 14:45 65 15 11/09/17 14:41 143/72 11/09/17 14:40 65 12 11/09/17 14:40 36.8 66 17 143/72 98 Nasal Cannula 2 11/09/17 14:40 65 12 99 11/09/17 14:36 147/64 11/09/17 14:35 68 19 100 11/09/18 14:35 68 19 11/09/18 14:31 153/68 18 14:30 68 23 18 14:30 70 23 100 18 14:26 163/87 18 14:25 71 13 11/09/18 14:25 71 13 100 11/09/18 14:22 178/139 11/09/18 14:20 70 22 11/09/18 14:20 88 22 100 18 14:16 162/66 18 14:15 72 14 11/09/18 14:15 72 14 100 11/09/18 14:12 173/58 11/09/18 14:10 74 26 17/18 14:10 74 26 100 11/09/18 14:08 143/120 11/09/17 14:05 76 20 100 7/17/18 14:05 76 19 11/09/17 14:01 172/69 11/09/17 14:00 37.1 71 15 172/69 100 Oxymask 10 11/09/17 14:00 88 14 11/09/17 14:00 86 14 100 Physical Exam: General- lying in bed, no distress Lungs- diffuse wheezing, few scattered rhonchi; no respiratory distress Cardiovascular- RRR; no gallop appreciated; no JVD; no pretibial edema Abdomen- + bowel sounds, soft, nontender Extremities- no cyanosis; no calf tenderness Neuro- alert, oriented Skin- warm & dry . Laboratory Results: Last 24 Hours Test 11/08/17 20:45 11/09/17 00:17 11/09/17 06:57 11/09/17 07:02 Bedside Glucose 149 mg/dl 134 mg/dl 114 mg/dl White Blood Count 7.71 K/uL Red Blood Count 4.05 M/uL Hemoglobin 12.1 g/dL Hematocrit 37.3 % Mean Corpuscular Volume 92.1 fL Mean Corpuscular Hemoglobin 29.9 pg Mean Corpuscular Hemoglobin Concent 32.4 g/dl RDW Standard Deviation 49.2 fL RDW Coefficient of Variation 14.4 % Platelet Count 152 K/uL Mean Platelet Volume 10.2 fL Sodium Level 142 mmol/L Potassium Level 3.9 mmol/L Chloride Level 108 mmol/L Carbon Dioxide Level 29 mmol/L Anion Gap 5.0 mmol/L Blood Urea Nitrogen 16 mg/dl Creatinine 0.94 mg/dl Est Creatinine Clear Calc Drug Dose 41.5 ml/min Estimated GFR () 67.3 Estimated GFR (Non- 58.1 BUN/Creatinine Ratio 16.5 Random Glucose 118 mg/dl Estimated Average Glucose 137 mg/dl Hemoglobin A1c 6.4 % Calcium Level 8.1 mg/dl Ionized Calcium 1.07 mmol/l Test 11/09/17 14:02 11/09/17 15:26 Bedside Glucose 136 mg/dl 129 mg/dl Assessment & Plan ACUTE HYPOXIC RESPIRATORY FAILURE Presented with dyspnea and O2 saturation of 83% on room air. Pulmonary embolism ruled out by CTA. Hypoxia may be secondary to aspiration with underlying COPD. Titrate supplemental O2. ASPIRATION PNEUMONIA Episode of aspiration while taking medications prior to discharge. CT of chest demonstrated infiltrates. Afebrile. Continue IV ampicillin/sulbactam. COPD Former smoker. Emphysematous changes noted on CT chest. Continue bronchodilators. PULMONARY MASS 2.1 cm mass RUL noted on chest x-ray and CT. Bronchoscopy performed today. Preliminary report = non-small cell carcinoma. Patient and son informed of preliminary biopsy results. Thoracic surgery consulted. Treatment of acute issues, followed by PET and PFT's recommended. ELEVATED D-DIMER CTA chest negative for pulmonary embolism. Venous duplex lower extremities negative for DVT. CORONARY ARTERY DISEASE No anginal symptoms. Aspirin held for bronchoscopy. Continue metoprolol and atorvastatin. HYPERTENSION Losartan on hold. Continue metoprolol. GERD Continue pantoprazole. DM TYPE 2 Well-controlled with dietary management. Hemoglobin A1c 6.4. FBS this morning = 114. Continue insulin coverage as needed. VTE PROPHYLAXIS Initially received SQ heparin which was held for bronchoscopy. SCD's. Ambulate as able. RESUSCITATION STATUS Full code. DISPOSITION To be determined. Internal Medicine follow-up with Dr. Lewis. . Current Inpatient Medications: Current Inpatient Medications Medications (Trade) Dose Ordered Sig/Juana Route Start Time Stop Time Status Last Admin Dose Admin Ioversol (Optiray 320) 100 ml UD PRN IV 11/08/17 04:15 11/12/17 04:14 Acetaminophen (Tylenol Tab) 650 mg Q4H PRN PO 11/08/17 09:00 12/08/17 08:59 Al Hydrox/Mg Hydrox/Simethicone (Maalox Max Susp) 15 ml Q4H PRN PO 11/08/17 09:00 12/08/17 08:59 Ondansetron HCl (Zofran Inj) 4 mg Q6H PRN IV 11/08/17 09:00 12/08/17 08:59 Heparin Sodium (Porcine) (Heparin Sq 5000 Unit/0.5ml) 5,000 unit Q12H SQ 11/08/17 09:00 12/08/17 08:59 Future Hold 11/08/17 12:23 5,000 UNIT Ampicillin Sodium/ Sulbactam Sodium (Consult) 1 ea UD PRN N/A 11/08/17 09:15 12/08/17 09:14 Amlodipine Besylate (Norvasc Tab) 5 mg DAILY PO 11/09/17 09:00 12/09/17 08:59 Aspirin (Ecotrin Tab) 325 mg QAM PO 11/09/17 09:00 12/09/17 08:59 Atorvastatin Calcium (Lipitor Tab) 80 mg QAM PO 11/09/17 09:00 12/09/17 08:59 Diphenhydramine HCl (Benadryl Cap) 25 mg HS PO 11/08/17 21:00 12/08/17 20:59 11/08/17 21:29 25 MG Lorazepam (Ativan Tab) 0.5 mg HS PO 11/08/17 21:00 12/08/17 20:59 11/08/17 21:28 0.5 MG Metoprolol Tartrate (Lopressor Tab) 100 mg BID PO 11/08/17 21:00 12/08/17 20:59 11/08/17 21:29 100 MG Nitroglycerin (Nitrostat Tab) 0.4 mg UD PRN SL 11/08/17 09:15 12/08/17 09:14 Albuterol/ Ipratropium (Duoneb) 3 ml QIDR INH 11/08/17 12:00 12/08/17 11:59 11/09/17 15:25 3 ML Dextrose/Sodium Chloride 1,000 ml @ 75 mls/hr [id number] IV 11/09/17 00:00 12/09/17 00:00 11/09/17 00:27 75 MLS/HR Pantoprazole Sodium (Protonix Tab) 40 mg BID PO 11/08/17 21:00 12/09/17 08:59 11/08/17 21:30 40 MG Acetaminophen/ Hydrocodone Bitart ([place] 5/325 Tab) 1 tab Q4H PRN PO 11/08/17 12:15 11/22/17 12:14 Ampicillin Sodium/ Sulbactam Sodium 3000 mg/Sodium Chloride 108 ml @ 216 mls/hr Q6H IV 11/09/17 16:00 11/16/17 15:59
--- NOTE | 2017-11-09 20:46 | CONSULTATION REPORT ---
DATE OF CONSULTATION: 11/09/2017 REASON FOR CONSULTATION: Non-small cell lung cancer. HISTORY OF PRESENT ILLNESS: This 77-year-old female with a longstanding history of GERD. The patient says that she has been having reflux type symptoms that have been going on for approximately several years. The patient says last evening she presented to the Emergency Department [facility] because she was again experiencing GERD-like symptoms consisting of burning in her throat and it became more severe and she noted a constant burning in her throat along with a cough and a feeling of shortness of breath that was atypical for her usual symptoms. Because of this, she did present to the Emergency Department where she did have various labs and imaging performed included a CBC where hemoglobin, hematocrit, platelet count and white blood cell count were all within the normal range. Coagulation studies showed an elevated D-dimer, but other coagulation studies were normal. The patient also had a chemistry profile with sodium, potassium, BUN and creatinine normal. The patient did have a troponin checked and this was not elevated on 2 occasions. She underwent a CT scan of the chest which showed the patient has a 2.1 cm mass in the anterior segment of the right upper lobe. The patient was noted to have enlarged subcarinal and paratracheal as well as right hilar lymph nodes. There is no evidence of DVT or PE and a large hiatal hernia was noted. The patient had a lower extremity venous Doppler which showed no evidence of DVT. The patient was ultimately admitted to [facility] due to concern for aspiration pneumonia and she was started on antibiotics. Because of the lung mass that was noted, Dr. Carolina of pulmonary critical care medicine was consulted and today he took the patient to the operating room and did an endobronchial ultrasound where he was able to biopsy lymph node stations 11R, 7R, 4R, 4L, and 2R all which were negative for atypical or malignant cells. She had a navigational bronchoscopy performed as well where the right lung mass in question was biopsied and the pulmonary pathology showed findings consistent with non-small cell adenocarcinoma. For this reason, thoracic surgery was consulted. I did visit with the patient at bedside. She denies any recent falls, head injuries, visual changes, tinnitus. She did have a sore throat from last night's episode. She denies any neck pain. The patient says that she does not have any chest pain. She says that when she is feeling well, she does not typically have shortness of breath and can negotiate steps which do cause some slight shortness of breath but this has been stable for years. She denies abdominal pain, but does have GERD-like symptoms as noted above. She denies any fever, shakes, or chills. She denies any dysuria. She has no history of stroke, seizure, migraine headache, DVT or PE and does suffer from anxiety. The patient says that she has not had any recent hemoptysis. She denies any weight loss. She has no chemical, asbestos or tuberculosis exposure known to her. She also says her appetite has been normal. At the time of my exam, she was resting comfortably in bed and did not appear to be in any distress. PAST MEDICAL HISTORY: 1. Anxiety. 2. Coronary artery disease. 3. Hypertension. 4. Diabetes. 5. GERD. 6. Hyperlipidemia. 7. Osteoporosis. PAST SURGICAL HISTORY: Includes endobronchial ultrasound and navigational bronchoscopy as noted above. ALLERGIES: SHE HAS LISTED ALLERGIES TO AMBIEN AND LISINOPRIL. OUTPATIENT MEDICATION REGIMEN: Includes the followin. Norvasc 5 mg daily. 2. Aspirin 325 mg daily. 3. Lipitor 80 mg daily. 4. Benadryl 25 mg at bedtime. 5. [place] as needed for pain. 6. Ativan 0.5 mg at bedtime. 7. Cozaar 100 mg daily. 8. Lopressor 100 mg twice daily. 9. Sublingual nitroglycerin as needed for chest pain. 10. Protonix 40 mg daily. SOCIAL HISTORY: She smoked for 20 years, quitting in 1992. She says that one pack lasted her about 2 days. FAMILY HISTORY: She said her grandfather had colon cancer. REVIEW OF SYSTEMS: As noted above. PHYSICAL EXAMINATION: VITAL SIGNS: The patient is noted to be afebrile, temperature 37.0, pulse 70 and regular, respirations are 16 and unlabored, blood pressure 145/80, pulse ox 97% on 2 liters. SKIN: Warm with good turgor. GENERAL: She is alert. She is oriented x3. She is in no distress. HEENT: Head: Atraumatic, normocephalic. Eyes: Pupils equal, round, and reactive to light and accommodation. Extraocular motions are intact. Ears: Auditory acuity is grossly intact. Nose: Nasal patency is intact. Sinuses are nontender. Mouth: Moist without exudates. NECK: Supple. No tracheal shift or lymphadenopathy noted. CARDIOVASCULAR: Regular rate and rhythm. LUNGS: Revealed breath sounds that were slightly decreased at the bases. No rales, rhonchi, wheezing or use of accessory muscles were noted. ABDOMEN: Soft and rotund. No pain is noted with palpation. EXTREMITIES: Revealed no cyanosis, clubbing, or edema. She had 1+ posterior tibial pulses bilaterally. NEUROLOGIC: Revealed cranial nerves II through XII are grossly intact. No focal deficits are noted. DIAGNOSTIC DATA: As noted above. IMPRESSION: A 77-year-old female with right lung mass. PLAN: The preliminary pathology shows non-small cell adenocarcinoma without lymph node involvement, so hopefully this is an early stage lung cancer. We would like the patient to get over her acute illness and then have the patient undergo a PET scan as well as pulmonary function tests and then revisit with us in the office to discuss possible surgical resection. The patient has had all of her questions answered at this point in time. I have encouraged her to make a list of any further questions that she may think of and we will certainly get her questions answered. The remainder of her care will be deferred to the primary service. Additional recommendations will be forthcoming based on her clinical course as it unfolds.
[2017-11-09] MEDS: LORAZEPAM 0.5 MG TAB PO SCH (21:12)
[2017-11-10] VITALS (8 sets, daily range): BP systolic 139–160; BP diastolic 63–74; PULSE 68–89; TEMP 36.6–36.8; O2SAT 90–99
[2017-11-10] MEDS: AMPICILLIN/SULBACTAM SOD INJ 3,000 MG in SODIUM CHLORIDE 0.9% 100ML 100 ML IV SCH ×2 (04:25→10:14)
[2017-11-10] MEDS: ALBUT/IPRATROP 3MG/0.5MG NEB 3 ML VIAL INH SCH ×4 (07:16→19:03)
[2017-11-10] MEDS: ATORVASTATIN 40 MG TAB PO SCH (08:16)
[2017-11-10] MEDS: ASPIRIN 325 MG ECTAB PO SCH (08:16)
[2017-11-10] MEDS: METOPROLOL TARTRATE 100 MG TAB PO SCH ×2 (08:16→21:16)
[2017-11-10] MEDS: AMLODIPINE BESYLATE 5 MG TAB PO SCH (08:16)
[2017-11-10] MEDS: PANTOprazole SOD 40 MG TAB PO SCH ×2 (08:16→21:21)
--- NOTE | 2017-11-10 15:33 | Pulmonology Progress Note ---
Pulmonary Progress Note Date of Service Nov 10, 2017. Attending Dr. Carolina Subjective The patient remains stable, no hemoptysis was reported, no shortness of breath, repeat chest x-ray did not reveal any pneumothorax again. Objective Physical exam revealed no fever, distant breath sounds bilaterally, S1-S2 regular rate and rhythm, abdomen is benign, no edema. Labs also were reviewed and are unchanged. Physical exam on 11/10/2017 showed stable vital signs, scattered rhonchi, no stridor, S1-S2 regular rate and rhythm, abdomen is benign, no edema. Assessment & Plan 1. Non-small cell lung CA, preliminary report by WILLIAM, negative lymph node at station 4R, 2R, 4L, 7R. 2. COPD, gold level undetermined, however the patient is asymptomatic and does not use oxygen at home nor inhalers. 3. GERD due to severe hiatal hernia. Plan: 1. Follow the final report of the lung biopsy. WILLIAM showed non-small cell lung CA. Or lymphadenopathy were negative with 12 passes been obtained. 2. I reviewed the chest x-ray and I do not appreciate pneumothorax, repeat chest x-ray with inspiration and expiration showed also no pneumothorax. 3. Continue with PPI and add Reglan. 4. Consult thoracic surgery, the patient has non-small cell lung CA with limited disease likely would be amenable to surgical intervention with intention to cure, assuming the PET scan is negative Elsewhere. The patient is T2 N0 M0 so far without PET staging. 5. Resume diet. 6. Glucose control. 7. Bronchodilators. 8. She can be discharged home to have follow-up with thoracic surgery, pulmonary and oncology. 9. Change the patient antibiotics to Augmentin. 10. Start the patient on long-acting beta agonist such as Symbicort or Advair. Thank you. Data Medications: Current Inpatient Medications Medications (Trade) Dose Ordered Sig/Juana Route Start Time Stop Time Status Last Admin Dose Admin Ioversol (Optiray 320) 100 ml UD PRN IV 11/08/17 04:15 11/12/17 04:14 Acetaminophen (Tylenol Tab) 650 mg Q4H PRN PO 11/08/17 09:00 12/08/17 08:59 Al Hydrox/Mg Hydrox/Simethicone (Maalox Max Susp) 15 ml Q4H PRN PO 11/08/17 09:00 12/08/17 08:59 Ondansetron HCl (Zofran Inj) 4 mg Q6H PRN IV 11/08/17 09:00 12/08/17 08:59 Heparin Sodium (Porcine) (Heparin Sq 5000 Unit/0.5ml) 5,000 unit Q12H SQ 11/08/17 09:00 12/08/17 08:59 Future Hold 11/08/17 12:23 5,000 UNIT Ampicillin Sodium/ Sulbactam Sodium (Consult) 1 ea UD PRN N/A 11/08/17 09:15 12/08/17 09:14 Amlodipine Besylate (Norvasc Tab) 5 mg DAILY PO 11/09/17 09:00 12/09/17 08:59 11/10/17 08:16 5 MG Aspirin (Ecotrin Tab) 325 mg QAM PO 11/09/17 09:00 12/09/17 08:59 11/10/17 08:16 325 MG Atorvastatin Calcium (Lipitor Tab) 80 mg QAM PO 11/09/17 09:00 12/09/17 08:59 11/10/17 08:16 80 MG Diphenhydramine HCl (Benadryl Cap) 25 mg HS PO 11/08/17 21:00 12/08/17 20:59 11/09/17 21:15 25 MG Lorazepam (Ativan Tab) 0.5 mg HS PO 11/08/17 21:00 12/08/17 20:59 11/09/17 21:12 0.5 MG Metoprolol Tartrate (Lopressor Tab) 100 mg BID PO 11/08/17 21:00 12/08/17 20:59 11/10/17 08:16 100 MG Nitroglycerin (Nitrostat Tab) 0.4 mg UD PRN SL 11/08/17 09:15 12/08/17 09:14 Albuterol/ Ipratropium (Duoneb) 3 ml QIDR INH 11/08/17 12:00 12/08/17 11:59 11/10/17 14:22 3 ML Pantoprazole Sodium (Protonix Tab) 40 mg BID PO 11/08/17 21:00 12/09/17 08:59 11/10/17 08:16 40 MG Acetaminophen/ Hydrocodone Bitart ([place] 5/325 Tab) 1 tab Q4H PRN PO 11/08/17 12:15 11/22/17 12:14 Ampicillin Sodium/ Sulbactam Sodium 3000 mg/Sodium Chloride 108 ml @ 216 mls/hr Q6H IV 11/09/17 16:00 11/16/17 15:59 11/10/17 10:14 216 MLS/HR I & O: 24-Hour Column 11/11/17 08:00 Intake Total 800 ml Balance 800 ml Vital Signs: Date Time Temp Pulse Resp B/P (MAP) Pulse Ox O2 Delivery O2 Flow Rate FiO2 11/10/17 15:11 36.7 74 18 157/63 (94) 90 Room Air 11/10/17 14:22 89 16 92 Room Air 11/10/17 11:11 79 16 98 Nasal Cannula 2.0 11/10/17 08:00 Nasal Cannula 2.0 Humidified Oxygen 11/10/17 07:30 36.8 68 18 139/73 (95) 99 Nasal Cannula 2.0 11/10/17 07:15 70 16 94 Nasal Cannula 2.0 11/10/17 00:00 Nasal Cannula 2.0 Humidified Oxygen 11/09/17 23:27 36.8 70 18 134/60 (84) 94 2.0 11/09/17 21:14 70 178/74 (108) 11/09/17 19:05 68 16 96 Nasal Cannula 2.0 11/09/17 16:00 Nasal Cannula 2.0 Laboratory Results: Last 24 Hours Test 11/09/17 20:23 11/10/17 07:39 11/10/17 11:36 Bedside Glucose 168 mg/dl 137 mg/dl 135 mg/dl
--- NOTE | 2017-11-10 17:49 | Progress Note ---
Medicine Progress Note Date & Time of Visit: Nov 10, 2017 at 15:30 . Subjective CC: Follow-up visit for pulmonary issues and other concerns. HPI: Feels better. Occasional nonproductive cough. No chest pain. No dyspnea at rest. Supplemental oxygen discontinued. ROS: General- no fever, no chills Resp- as noted above in HPI Cardiac- no chest pain, no edema GI- no nausea, no vomiting, no diarrhea, no constipation - no dysuria, no difficulty voiding . Objective Last 8 Hrs Date Time Temp Pulse Resp B/P (MAP) Pulse Ox O2 Delivery O2 Flow Rate FiO2 11/10/17 15:11 36.7 74 18 157/63 (94) 90 Room Air 11/10/17 14:22 89 16 92 Room Air 11/10/17 11:11 79 16 98 Nasal Cannula 2.0 Physical Exam: General- sitting in bed, no distress Lungs- diffuse mild wheezing, ; no respiratory distress Cardiovascular- RRR; no gallop appreciated; no JVD; no pretibial edema Abdomen- + bowel sounds, soft, nontender Extremities- no cyanosis; no calf tenderness Neuro- alert, oriented Skin- warm & dry . Laboratory Results: Last 24 Hours Test 11/09/17 20:23 11/10/17 07:39 11/10/17 11:36 11/10/17 16:30 Bedside Glucose 168 mg/dl 137 mg/dl 135 mg/dl 129 mg/dl Assessment & Plan ACUTE HYPOXIC RESPIRATORY FAILURE Presented with dyspnea and O2 saturation of 83% on room air. Pulmonary embolism ruled out by CTA. Hypoxia may be secondary to aspiration with underlying COPD. Titrate supplemental O2. ASPIRATION PNEUMONIA Episode of aspiration while taking medications prior to discharge. CT of chest demonstrated infiltrates. Afebrile. Continue IV ampicillin/sulbactam; transition to oral therapy with amoxicillin/ clavulanic acid tomorrow. COPD Former smoker. Emphysematous changes noted on CT chest. Continue bronchodilators. PULMONARY MASS 2.1 cm mass RUL noted on chest x-ray and CT. Bronchoscopy performed 11/09. Preliminary report = non-small cell carcinoma. Patient and son informed of preliminary biopsy results. Thoracic surgery consulted. Preoperative PFTs ordered. We will need outpatient PET scan. ELEVATED D-DIMER CTA chest negative for pulmonary embolism. Venous duplex lower extremities negative for DVT. CORONARY ARTERY DISEASE No anginal symptoms. Aspirin held for bronchoscopy. Continue metoprolol and atorvastatin. HYPERTENSION Losartan on hold. Continue metoprolol. GERD Continue pantoprazole. DM TYPE 2 Well-controlled with dietary management. Hemoglobin A1c 6.4. FBS this morning = 137. Continue insulin coverage as needed. VTE PROPHYLAXIS Initially received SQ heparin which was held for bronchoscopy. SCD's. Ambulate as able. RESUSCITATION STATUS Full code. DISPOSITION Expected discharge to home. Internal Medicine follow-up with Dr. Lewis. Thoracic Surgery follow-up with Dr. Hickman. . Current Inpatient Medications: Current Inpatient Medications Medications (Trade) Dose Ordered Sig/Juana Route Start Time Stop Time Status Last Admin Dose Admin Ioversol (Optiray 320) 100 ml UD PRN IV 11/08/17 04:15 11/12/17 04:14 Acetaminophen (Tylenol Tab) 650 mg Q4H PRN PO 11/08/17 09:00 12/08/17 08:59 Al Hydrox/Mg Hydrox/Simethicone (Maalox Max Susp) 15 ml Q4H PRN PO 11/08/17 09:00 12/08/17 08:59 Ondansetron HCl (Zofran Inj) 4 mg Q6H PRN IV 11/08/17 09:00 12/08/17 08:59 Heparin Sodium (Porcine) (Heparin Sq 5000 Unit/0.5ml) 5,000 unit Q12H SQ 11/08/17 09:00 12/08/17 08:59 Future Hold 11/08/17 12:23 5,000 UNIT Amlodipine Besylate (Norvasc Tab) 5 mg DAILY PO 11/09/17 09:00 12/09/17 08:59 11/10/17 08:16 5 MG Aspirin (Ecotrin Tab) 325 mg QAM PO 11/09/17 09:00 12/09/17 08:59 11/10/17 08:16 325 MG Atorvastatin Calcium (Lipitor Tab) 80 mg QAM PO 11/09/17 09:00 12/09/17 08:59 11/10/17 08:16 80 MG Diphenhydramine HCl (Benadryl Cap) 25 mg HS PO 11/08/17 21:00 12/08/17 20:59 11/09/17 21:15 25 MG Lorazepam (Ativan Tab) 0.5 mg HS PO 11/08/17 21:00 12/08/17 20:59 11/09/17 21:12 0.5 MG Metoprolol Tartrate (Lopressor Tab) 100 mg BID PO 11/08/17 21:00 12/08/17 20:59 11/10/17 08:16 100 MG Nitroglycerin (Nitrostat Tab) 0.4 mg UD PRN SL 11/08/17 09:15 12/08/17 09:14 Albuterol/ Ipratropium (Duoneb) 3 ml QIDR INH 11/08/17 12:00 12/08/17 11:59 11/10/17 14:22 3 ML Pantoprazole Sodium (Protonix Tab) 40 mg BID PO 11/08/17 21:00 12/09/17 08:59 11/10/17 08:16 40 MG Acetaminophen/ Hydrocodone Bitart ([place] 5/325 Tab) 1 tab Q4H PRN PO 11/08/17 12:15 11/22/17 12:14 Amoxicillin/ Clavulanate Potassium (Augmentin Tab) 875 mg BID PO 11/10/17 21:00 11/17/17 20:59 Metoclopramide HCl (Reglan Tab) 5 mg ACHS PO 11/10/17 16:30 12/10/17 16:29 Budesonide/ Formoterol Fumarate (Symbicort 160/ 4.5 Inh) 2 puffs BID INH 11/10/17 21:00 12/10/17 20:59
[2017-11-10] MEDS: METOCLOPRAMIDE HCL 5 MG TAB PO SCH ×2 (18:41→21:15)
--- NOTE | 2017-11-10 20:12 | SURGERY PROGRESS NOTE ---
DATE: 11/10/2017 This is a delightful 77-year-old female who quit smoking 25 years ago. The patient was not a very heavy smoker, before that she smoked about half a pack a day for 30 years. At any rate, the patient has a significant hiatal hernia and suffered a case of aspiration. She presented to the hospital via ambulance, however she quickly recovered. A CT scan was done of her chest and she was found to have a mass in her right upper lobe. She underwent an endobronchial ultrasound and a navigational bronchoscopy by Dr. Carolina. This showed the patient has an adenocarcinoma of right upper lobe. Also of concern is her level VII and right 4 nodes have cells that were suspicious for carcinoma. I was asked to evaluate her from a surgical standpoint. I think the patient needs to be staged a bit better. We are going to get pulmonary function studies on her tomorrow; however, she is going to require a PET scan. Depending on the findings of the PET scan it appears the patient has at least 3A disease. We will get oncology involved and it is possible we could offer her a trimodality therapy. I will be glad to see her back in the office.
[2017-11-10] MEDS: BUDESONIDE/FORMOTEROL FUMARATE 160/4.5 60 PUFFS/INHALER INH SCH (21:14)
[2017-11-10] MEDS: AMOXICILLIN/CLAVULANATE TAB 875 MG TAB PO SCH (21:15)
[2017-11-10] MEDS: LORAZEPAM 0.5 MG TAB PO SCH (21:19)
[2017-11-11] MEDS: METOCLOPRAMIDE HCL 5 MG TAB PO SCH ×3 (06:21→16:11)
[2017-11-11 06:29] LABS: HEMOGLOBIN 11.2 g/dL (12.0-16.0); MEAN CELL VOLUME 93.1 fL (80-100); MEAN CORPUSCULAR HEMOGLOBIN 29.8 pg (25-34); MEAN PLATELET VOLUME 10.1 fL (7.4-10.4); PLATELET COUNT 159 K/uL (130-400); RED CELL DISTRIBUTION WIDTH CV 14.8 % (11.5-14.5); RED CELL DISTRIBUTION WIDTH SD 50.4 fL (36.4-46.3)
[2017-11-11 07:08] LABS: CALCIUM 7.8 mg/dl (8.5-10.1); CREATININE 0.88 mg/dl (0.60-1.20); POTASSIUM 4.3 mmol/L (3.5-5.1)
[2017-11-11 07:20] VITALS: PULSE 60; O2SAT 93
[2017-11-11] MEDS: ALBUT/IPRATROP 3MG/0.5MG NEB 3 ML VIAL INH SCH ×3 (07:20→15:11)
[2017-11-11 07:40] VITALS: BP 144/74; PULSE 55; TEMP 36.7; O2SAT 95
[2017-11-11] MEDS: PANTOprazole SOD 40 MG TAB PO SCH (08:03)
[2017-11-11] MEDS: METOPROLOL TARTRATE 100 MG TAB PO SCH (08:03)
[2017-11-11] MEDS: AMOXICILLIN/CLAVULANATE TAB 875 MG TAB PO SCH (08:03)
[2017-11-11] MEDS: BUDESONIDE/FORMOTEROL FUMARATE 160/4.5 60 PUFFS/INHALER INH SCH (08:03)
[2017-11-11] MEDS: ASPIRIN 325 MG ECTAB PO SCH (08:03)
[2017-11-11] MEDS: ATORVASTATIN 40 MG TAB PO SCH (08:04)
[2017-11-11] MEDS: AMLODIPINE BESYLATE 5 MG TAB PO SCH (08:04)
[2017-11-11] MEDS: HEPARIN SOD 5000 UNIT/0.5 ML CARP SQ SCH (10:01)
[2017-11-11 11:34] VITALS: PULSE 58; O2SAT 92
--- NOTE | 2017-11-11 12:37 | PULMONARY PROGRESS NOTE ---
DATE: 11/11/2017 TIME: 11:45 a.m. SUBJECTIVE: The patient is feeling well. She denies any shortness of breath. She has no cough or sputum production. Her daughter was with her during this evaluation. OBJECTIVE: GENERAL: The patient appeared comfortable. VITAL SIGNS: Temperature was 36.7. Heart rate was 58 per minute. The rhythm is regular. Blood pressure 144/74. LUNGS: Auscultation of the lung hernandez revealed them to be clear. No wheezing was heard. Respiratory rate was 16 breaths per minute. Saturation was 92% on room air. It appears in the past 24 hours, it has been ranging between 91% and 95%. EXTREMITIES: Showed no cyanosis, clubbing or edema. The patient did have pulmonary function testing done today. This showed a mild obstructive pattern. There was no significant change following bronchodilators. Lung volumes were compatible with obstruction. Diffusion was decreased to 50%. LABORATORY DATA: White count today is 8.5. Hemoglobin 11.2. Platelets 159,000. Electrolytes show sodium 144, potassium 4.3, chloride 110, bicarbonate 29. BUN is 22 with a creatinine of 0.88. IMPRESSIONS: 1. Lung carcinoma - adenocarcinoma, right upper lobe. 2. At least 1 positive mediastinal lymph node. 3. Chronic obstructive pulmonary disease. 4. Aspiration pneumonia. COMMENTS AND RECOMMENDATIONS: The patient is likely going home, I would suspect. She will need a PET scan as an outpatient. Her PFTs what appeared to be adequate for thoracic surgery if need be. She does have mild airflow obstruction. In light of this and in light of the potential for upcoming surgery, I would suggest discharging her with a long-acting muscarinic antagonist such as Spiriva Respimat. The postbronchodilator study done with a short-acting beta agonist did not show any improvement in lung function. As part of a potential preoperative evaluation, consideration is given to doing an arterial blood gas prior to discharge so that there is better certainty as to whether she has CO2 retention at baseline. The patient could be seen by the pulmonary division as an outpatient if desired.
--- NOTE | 2017-11-11 13:22 | SURGERY PROGRESS NOTE ---
DATE: 11/11/2017 Ms. Corona had her pulmonary function studies today. This shows an FEV1 of a little over a liter which is 65% of predicted. In addition, her DLCO is 50% of predicted. She is on room air with 92% to 95% saturations. From my standpoint, Ms. Corona can be discharged. We will order a PET scan on her as an outpatient and will also get her over to see Dr. Benjy Shaffer. BRO
[2017-11-11 15:11] VITALS: PULSE 67; O2SAT 92
[2017-11-11 15:31] VITALS: BP 135/78; PULSE 67; TEMP 34.8; O2SAT 92
--- NOTE | 2017-11-11 16:23 | Progress Note ---
Medicine Progress Note Date & Time of Visit: Nov 11, 2017 at 16:23 . Subjective Doing well. No fever, cough, SOB. No nausea, vomiting, diarrhea. Ambulating. Ready to go home. . Objective Last 8 Hrs Date Time Temp Pulse Resp B/P (MAP) Pulse Ox O2 Delivery O2 Flow Rate FiO2 11/11/17 15:31 34.8 67 18 135/78 (97) 92 Room Air 11/11/17 15:11 67 16 92 Room Air 11/11/17 11:34 58 16 92 Room Air 11/11/17 08:30 Room Air Physical Exam: General- no distress Lungs- diffuse mild wheezing; no respiratory distress Cardiovascular- RRR; no gallop appreciated; no JVD; no pretibial edema Abdomen- + bowel sounds, soft, nontender Extremities- no cyanosis; no calf tenderness Neuro- alert, oriented Skin- warm & dry . Laboratory Results: Last 24 Hours Test 11/10/17 16:30 11/10/17 20:31 11/11/17 06:09 11/11/17 07:31 Bedside Glucose 129 mg/dl 129 mg/dl 98 mg/dl White Blood Count 8.50 K/uL Red Blood Count 3.76 M/uL Hemoglobin 11.2 g/dL Hematocrit 35.0 % Mean Corpuscular Volume 93.1 fL Mean Corpuscular Hemoglobin 29.8 pg Mean Corpuscular Hemoglobin Concent 32.0 g/dl RDW Standard Deviation 50.4 fL RDW Coefficient of Variation 14.8 % Platelet Count 159 K/uL Mean Platelet Volume 10.1 fL Sodium Level 144 mmol/L Potassium Level 4.3 mmol/L Chloride Level 110 mmol/L Carbon Dioxide Level 29 mmol/L Anion Gap 5.0 mmol/L Blood Urea Nitrogen 22 mg/dl Creatinine 0.88 mg/dl Est Creatinine Clear Calc Drug Dose 44.4 ml/min Estimated GFR () 72.9 Estimated GFR (Non- 62.9 BUN/Creatinine Ratio 25.0 Random Glucose 96 mg/dl Calcium Level 7.8 mg/dl Test 11/11/17 11:19 11/11/17 13:39 Bedside Glucose 132 mg/dl Arterial Blood pH 7.46 Arterial Blood Partial Pressure CO2 37 mmHg Arterial Blood Partial Pressure O2 66 mm/Hg Arterial Blood HCO3 26 mmol/L Arterial Blood Oxygen Saturation 92.3 % Arterial Blood Base Excess 1.7 mEq/L Arterial Blood Gas Delivery RA Abilio Test POS Assessment & Plan ACUTE HYPOXIC RESPIRATORY FAILURE Presented with dyspnea and O2 saturation of 83% on room air. Pulmonary embolism ruled out by CTA. Hypoxia probably secondary to aspiration with underlying COPD. Weaned O2. O2 sat 92% on RA day of discharge. ASPIRATION PNEUMONIA Episode of aspiration while taking medications prior to discharge. CT of chest demonstrated infiltrates. Received IV ampicillin/sulbactam and transitioned to oral therapy with amoxicillin/clavulanic acid. Check f/u chest x-ray in about 1 month. COPD Former smoker. Emphysematous changes noted on CT chest. PFT's demonstrated moderate obstructive lung disease without significant response to bronchodilators. FVC 2.1 L. FEV1 1.66 L. FEF 25-75% 1.57 L/sec. VC 2.1 L. Discharge on Symbicort, Spiriva, albuterol PRN. PULMONARY MASS 2.1 cm mass RUL noted on chest x-ray and CT. Bronchoscopy performed 11/09 and revealed adenocarcinoma with a positive lymph node. Thoracic surgery consulted. Preoperative PFTs ordered. Outpatient PET scan followed by Medical Oncology consultation and Thoracic Surgery follow-up planned. ELEVATED D-DIMER CTA chest negative for pulmonary embolism. Venous duplex lower extremities negative for DVT. CORONARY ARTERY DISEASE No anginal symptoms. Aspirin held for bronchoscopy. Continue metoprolol and atorvastatin. HYPERTENSION Discharged on amlodipine and losartan. GERD Continue pantoprazole. DM TYPE 2 Well-controlled with dietary management. Hemoglobin A1c 6.4. FBS day of discharge was 98. VTE PROPHYLAXIS Initially received SQ heparin which was held for bronchoscopy. SCD's. Ambulating. RESUSCITATION STATUS Full code. DISPOSITION Discharged to home. Internal Medicine follow-up with Dr. Lewis. Medical Oncology consultation with Dr. Benjy Shaffer. Thoracic Surgery follow-up with Dr. Hickman. . Current Inpatient Medications: Current Inpatient Medications Medications (Trade) Dose Ordered Sig/Juana Route Start Time Stop Time Status Last Admin Dose Admin Ioversol (Optiray 320) 100 ml UD PRN IV 11/08/17 04:15 11/12/17 04:14 Acetaminophen (Tylenol Tab) 650 mg Q4H PRN PO 11/08/17 09:00 12/08/17 08:59 Al Hydrox/Mg Hydrox/Simethicone (Maalox Max Susp) 15 ml Q4H PRN PO 11/08/17 09:00 12/08/17 08:59 Ondansetron HCl (Zofran Inj) 4 mg Q6H PRN IV 11/08/17 09:00 12/08/17 08:59 Heparin Sodium (Porcine) (Heparin Sq 5000 Unit/0.5ml) 5,000 unit Q12H SQ 11/08/17 09:00 12/08/17 08:59 Future hold 11/11/17 10:01 5,000 UNIT Amlodipine Besylate (Norvasc Tab) 5 mg DAILY PO 11/09/17 09:00 12/09/17 08:59 11/11/17 08:04 5 MG Aspirin (Ecotrin Tab) 325 mg QAM PO 11/09/17 09:00 12/09/17 08:59 11/11/17 08:03 325 MG Atorvastatin Calcium (Lipitor Tab) 80 mg QAM PO 11/09/17 09:00 12/09/17 08:59 11/11/17 08:04 80 MG Diphenhydramine HCl (Benadryl Cap) 25 mg HS PO 11/08/17 21:00 12/08/17 20:59 11/10/17 21:20 25 MG Lorazepam (Ativan Tab) 0.5 mg HS PO 11/08/17 21:00 12/08/17 20:59 11/10/17 21:19 0.5 MG Metoprolol Tartrate (Lopressor Tab) 100 mg BID PO 11/08/17 21:00 12/08/17 20:59 11/11/17 08:03 100 MG Nitroglycerin (Nitrostat Tab) 0.4 mg UD PRN SL 11/08/17 09:15 12/08/17 09:14 Albuterol/ Ipratropium (Duoneb) 3 ml QIDR INH 11/08/17 12:00 12/08/17 11:59 11/11/17 15:11 3 ML Pantoprazole Sodium (Protonix Tab) 40 mg BID PO 11/08/17 21:00 12/09/17 08:59 11/11/17 08:03 40 MG Acetaminophen/ Hydrocodone Bitart ([place] 5/325 Tab) 1 tab Q4H PRN PO 11/08/17 12:15 11/22/17 12:14 Amoxicillin/ Clavulanate Potassium (Augmentin Tab) 875 mg BID PO 11/10/17 21:00 11/17/17 20:59 11/11/17 08:03 875 MG Metoclopramide HCl (Reglan Tab) 5 mg ACHS PO 11/10/17 16:30 12/10/17 16:29 11/11/17 16:11 5 MG Budesonide/ Formoterol Fumarate (Symbicort 160/ 4.5 Inh) 2 puffs BID INH 11/10/17 21:00 12/10/17 20:59 11/11/17 08:03 2 PUFFS
[2017-11-11] MEDS ORDERED: AMOX1TAB43 PO (16:34)
[2017-11-11] MEDS ORDERED: ALBUAER INH (16:34)
[2017-11-11] MEDS ORDERED: SPRIN/30 INH (16:34)
[2017-11-11] MEDS ORDERED: SYMIN INH (16:34)
--- NOTE | 2017-11-11 16:41 | Discharge Instructions ---
Discharge Instructions Date of Service Nov 11, 2017. Admission Reason for Admission: pneumonia . Discharge Discharge Diagnosis / Problem: pneumonia, lung cancer Discharge Goals Goal(s): Improve disease control Activity Recommendations Activity Limitations: resume your previous activity . Instructions / Follow-Up Instructions / Follow-Up APPOINTMENTS: THORACIC SURGERY Dr. Hickman His office will contact you with appointment. MEDICAL ONCOLOGY Dr. Benjy Shaffer [facility] His office will contact you with appointment. INTERNAL MEDICINE 11/23/2017 11:20 AM Binu Lewis, OTHER INSTRUCTIONS: PET scan will be scheduled by Dr. Hickman. Seek medical attention if you have: * temperature above 101 * chest pain or trouble breathing * abdominal pain, nausea, vomiting * diarrhea, dark stools or bloody stools * any unanswered questions or concerns Call 911 if symptoms are severe. Call if you have any questions or problems. My cell # is [phone]. You can also reach a [facility] hospitalist on duty at [facility] 24 hours a day by calling [phone]. Please take good care of yourself. Obie Flores . Current Hospital Diet Patient's current hospital diet: AHA Diet (Heart Healthy), Diabetes Type 2 Diet Discharge Diet Recommended Diet: AHA Diet (Heart Healthy) Procedures Procedures Performed: Chest x-ray and CT scan showed pneumonia and a spot in your right lung. Bronchoscopy showed lung cancer. Pending Studies Studies pending at discharge: no Laboratory Results Hemoglobin A1c Test 11/09/17 06:57 Range/Units Estimated Average Glucose 137 mg/dl Hemoglobin A1c 6.4 H 4.5-5.6 % Medical Emergencies . Who to Call and When: Medical Emergencies: If at any time you feel your situation is an emergency, please call 911 immediately. . Non-Emergent Contact Non-Emergency issues call your: Primary Care Provider, Hospital Doctor, Oncologist, Specialist . . "Provider Documentation" section prepared by Obie Flores. .
[2017-11-11 16:50] VITALS: BP 135/78; PULSE 67; TEMP 34.8; O2SAT 92
--- NOTE | 2017-11-12 10:02 | PULMONARY FUNCTION TEST ---
Pulmonary function study interpretation based off ATS criteria. SPIROMETRY: Moderate obstructive ventilatory disease. BRONCHODILATOR CHALLENGE: No significant response. LUNG VOLUMES: Signs of hyperinflation. DIFFUSION CAPACITY: Moderately reduced. INTERPRETATION: Consistent with emphysema. Clinical correlation required.
--- NOTE | 2017-11-15 04:34 | Discharge Summary ---
Discharge Summary Date of Service Nov 15, 2017. Discharge Summary Admission Date: Nov 08, 2017 at 08:59 Discharge Date: Nov 11, 2017 Discharge Disposition: Home Principal Diagnosis: aspiration pneumonia OTHER SECONDARY DIAGNOSES: acute hypoxic respiratory failure COPD, newly diagnosed RUL pulmonary mass = adenocarcinoma lung . Secondary Diagnoses/Problems: Chronic and Resolved Medical Problems: (1) Anxiety Status: Chronic (2) CAD (coronary artery disease) Status: Chronic (3) Diabetes mellitus, type II, diet controlled Status: Chronic (4) GERD (gastroesophageal reflux disease) Status: Chronic (6) HLD (hyperlipidemia) Status: Chronic (7) HTN (hypertension) Status: Chronic (8) Osteoporosis Status: Chronic . Procedures: CTA chest venous duplex lower extremities IV medications bronchoscopy with electromagnetic navigation and endobronchial ultrasound with biopsies PFT's. . Consultations: Pulmonary Medicine with Dr. Carolina Thoracic Surgery with Dr. Hickman. . Medication Reconciliation New Medications: Albuterol Sulfate (Proventil Hfa) 108 Mcg/Act Aer 2 PUFFS INH Q6H PRN for wheezing, #1 INHALER 5 Refills Tiotropium Pyrites (Spiriva Handihaler) 30 Puff/540 Mcg Aerp 1 CAP INH DAILY, #1 INHALER 5 Refills Amoxicillin & Pot Clavulanate (Amoxicillin/Clavulanate P) 1 Tab Tab 875 MG PO BID, #12 TAB Take with food. Budesonide/Formoterol Fumarate (Symbicort 160-4.5 Mcg/Act) 60 Puffs/Inhaler Aero 2 PUFFS INH BID, #1 INHALER 5 Refills Continued Medications: Amlodipine Besylate (Amlodipine Besylate) 5 Mg Tab 5 MG PO DAILY, TAB Aspirin (Aspirin) 325 Mg Tab 325 MG PO QAM Atorvastatin (Lipitor) 80 Mg Tab 80 MG PO QAM, TAB Diphenhydramine HCl (Diphenhydramine HCl) 25 Mg Cap 25 MG PO HS Hydrocodone/Acetaminophen 5MG/325MG ([place] 5MG/325MG) Tab PO Q4H PRN for Pain, TAB Lorazepam (Ativan) 0.5 Mg Tab 0.5 MG PO HS Losartan Potassium (Cozaar) 100 Mg Tab 100 MG PO QAM, TAB Metoprolol Tartrate (Lopressor) 100 Mg Tab 100 MG PO BID, TAB Nitroglycerin (Nitrostat) 0.4 Mg/1 Tab Subl 1 TAB SL UD PRN for chest pain Maximum three doses HOLD if SBP < 100 Pantoprazole (Protonix) 40 Mg Tab 40 MG PO QAM, #30 TAB Admission Information HPI (per Admitting provider): This is a 77-year-old female with a PMH of CAD, HTN, HLD, DM II, GERD and other medical problems listed below who presents with burning in her throat beginning last evening. Patient states she was in her normal state of health and was taking her evening medication before going to bed. After taking medication, began to experience constant burning in her throat and ears, feeling like they were "on fire". Endorses a cough with some productive sputum beginning at this time as well as feeling like she could not catch her breath. Denies choking or aspiration after taking pills. States that burning pain feels like her acid reflux but much more severe. Takes pantoprazole every evening before bed, which usually controls GERD symptoms. Came to ED for further evaluation of burning sensation in throat as well as shortness of breath. Was found to be hypoxic at 83% on room air. Does not require home O2 at baseline. Quit smoking 25 years ago (h/o 35 pack years). Endorses increased leg swelling L>R. Denies fever, chills, lightheadedness, visual changes, ear pain, difficulty swallowing, sore throat, wheezing, hemoptysis, chest pain, abdominal pain, nausea, vomiting, bowel or bladder changes or lower extremity swelling. Underwent an ultrasound of neck for painless left-sided mass in August, which was found to be a simple cyst. PCP is Dr. Lewis. . Physical Exam (per Admitting): General Appearance: WD/WN, no apparent distress Head: normocephalic, atraumatic Eyes: normal inspection, PERRL, sclerae normal ENT: normal ENT inspection, hearing grossly normal, pharynx normal (moist mucous membranes ) Neck: supple, no adenopathy, thyroid normal, trachea midline Respiratory/Chest: chest non-tender, lungs clear, normal breath sounds, no respiratory distress, no accessory muscle use Cardiovascular: regular rate, rhythm, no murmur, normal peripheral pulses Abdomen/GI: normal bowel sounds, non tender, soft, no organomegaly Back: normal inspection Extremities/Musculoskelatal: normal inspection, no calf tenderness, normal capillary refill, no pedal edema Neurologic/Psych: no motor/sensory deficits, alert, normal mood/affect, oriented x 3 Skin: normal color, warm/dry, no rash Hospital Course ACUTE HYPOXIC RESPIRATORY FAILURE Presented with dyspnea and O2 saturation of 83% on room air. Pulmonary embolism ruled out by CTA. Hypoxia probably secondary to aspiration with underlying COPD. Weaned O2. O2 sat 92% on RA day of discharge. ASPIRATION PNEUMONIA Episode of aspiration while taking medications prior to discharge. CT of chest demonstrated infiltrates. Received IV ampicillin/sulbactam and transitioned to oral therapy with amoxicillin/clavulanic acid. Check f/u chest x-ray in about 1 month. COPD Former smoker. Emphysematous changes noted on CT chest. PFT's demonstrated moderate obstructive lung disease without significant response to bronchodilators. FVC 2.1 L. FEV1 1.66 L. FEF 25-75% 1.57 L/sec. VC 2.1 L. Discharge on Symbicort, Spiriva, albuterol PRN. PULMONARY MASS 2.1 cm mass RUL noted on chest x-ray and CT. Bronchoscopy performed 11/09 and revealed adenocarcinoma with a positive lymph node. Thoracic surgery consulted. Preoperative PFTs ordered. Outpatient PET scan followed by Medical Oncology consultation and Thoracic Surgery follow-up planned. ELEVATED D-DIMER CTA chest negative for pulmonary embolism. Venous duplex lower extremities negative for DVT. CORONARY ARTERY DISEASE No anginal symptoms. Aspirin held for bronchoscopy. Continue metoprolol and atorvastatin. HYPERTENSION Discharged on amlodipine and losartan. GERD Continue pantoprazole. DM TYPE 2 Well-controlled with dietary management. Hemoglobin A1c 6.4. FBS day of discharge was 98. VTE PROPHYLAXIS Initially received SQ heparin which was held for bronchoscopy. SCD's. Ambulating. RESUSCITATION STATUS Full code. DISPOSITION Discharged to home. Internal Medicine follow-up with Dr. Lweis. Medical Oncology consultation with Dr. Benjy Shaffer. Thoracic Surgery follow-up with Dr. Hickman. . Total time spent on discharge = 45 min. This includes examination of the patient, discharge planning, medication reconciliation, and communication with other providers. . Discharge Instructions Discharge Instructions Date of Service Nov 11, 2017. Admission Reason for Admission: pneumonia . Discharge Discharge Diagnosis / Problem: pneumonia, lung cancer Discharge Goals Goal(s): Improve disease control Activity Recommendations Activity Limitations: resume your previous activity . Instructions / Follow-Up Instructions / Follow-Up APPOINTMENTS: THORACIC SURGERY Dr. Hickman His office will contact you with appointment. MEDICAL ONCOLOGY Dr. Benjy Shaffer [facility] His office will contact you with appointment. INTERNAL MEDICINE 11/23/2017 11:20 AM Binu Lewis, DO OTHER INSTRUCTIONS: PET scan will be scheduled by Dr. Hickman. Seek medical attention if you have: * temperature above 101 * chest pain or trouble breathing * abdominal pain, nausea, vomiting * diarrhea, dark stools or bloody stools * any unanswered questions or concerns Call 911 if symptoms are severe. Call if you have any questions or problems. My cell # is [phone]. You can also reach a [facility] hospitalist on duty at [facility] 24 hours a day by calling [phone]. Please take good care of yourself. Obie Flores . Current Hospital Diet Patient's current hospital diet: AHA Diet (Heart Healthy), Diabetes Type 2 Diet Discharge Diet Recommended Diet: AHA Diet (Heart Healthy) Procedures Procedures Performed: Chest x-ray and CT scan showed pneumonia and a spot in your right lung. Bronchoscopy showed lung cancer. Pending Studies Studies pending at discharge: no Laboratory Results Hemoglobin A1c Test 11/09/17 06:57 Range/Units Estimated Average Glucose 137 mg/dl Hemoglobin A1c 6.4 H 4.5-5.6 % Medical Emergencies . Who to Call and When: Medical Emergencies: If at any time you feel your situation is an emergency, please call 911 immediately. . Non-Emergent Contact Non-Emergency issues call your: Primary Care Provider, Hospital Doctor, Oncologist, Specialist . . "Provider Documentation" section prepared by Obie Flores. .. Additional Copies To Benjy Shaffer M.D.; Binu Lewis D.ORichy; Raymundo Hickman MD
== END 2017-11-11 17:30 | disposition home or self-care (01) | DRG 166 ==
LOC: EDBD 02:29 → C.EDB 02:30 → C.MS2W 08:59 → ENRESERV 10:02
PROVIDERS: ADMIT Internal Medicine; ATTEND Hospitalist
PROC: 0B9C8ZX Drainage of Right Upper Lung Lobe, Via Natural or Artificial Opening Endoscopic, Diagnostic (ICD-10-PCS; principal; 2017-11-09 11:30)
PROC: 0BBC8ZX Excision of Right Upper Lung Lobe, Via Natural or Artificial Opening Endoscopic, Diagnostic (ICD-10-PCS; principal; 2017-11-09 11:30)
PROC: 07B74ZX Excision of Thorax Lymphatic, Percutaneous Endoscopic Approach, Diagnostic (ICD-10-PCS; principal; 2017-11-09 11:30)
DX: J69.0 Pneumonitis due to inhalation of food and vomit (principal); J96.01 Acute respiratory failure with hypoxia; N17.9 Acute kidney failure, unspecified; J44.0 Chronic obstructive pulmonary disease with (acute) lower respiratory infection; C34.11 Malignant neoplasm of upper lobe, right bronchus or lung; K44.9 Diaphragmatic hernia without obstruction or gangrene; K21.9 Gastro-esophageal reflux disease without esophagitis; E11.9 Type 2 diabetes mellitus without complications; I25.10 Atherosclerotic heart disease of native coronary artery without angina pectoris; E78.5 Hyperlipidemia, unspecified; I10 Essential (primary) hypertension; G47.00 Insomnia, unspecified; F41.9 Anxiety disorder, unspecified; R60.0 Localized edema; R59.0 Localized enlarged lymph nodes; R79.1 Abnormal coagulation profile; Z79.82 Long term (current) use of aspirin; Z79.899 Other long term (current) drug therapy; Z87.891 Personal history of nicotine dependence

== ENCOUNTER → 2017-11-22 | Outpatient (CLI) | payer OTHER ==
[~2017-11-22] MED LIST changes: +ALBUAER INH; -AMLO2.5T PO; +AMOX1TAB43 PO; +HYDR-5688 PO; +NRV5 PO; +NTRGSL4 SL; +SPRIN/30 INH; +SYMIN INH
--- NOTE | 2017-11-22 12:22 | DIAGNOSTIC IMAGING REPORT ---
PET/CT SKULL-THIGH CLINICAL HISTORY: 77 years-old Female with NON SMALL CELL LUNG CANCER. Initial treatment strategy in a patient with history of non-small cell lung cancer. Prior bronchoscopy with tissue sampling. COMPARISON: CTA of the chest 11/08/2017. TECHNIQUE: The patient was injected with 12.2 mCi of F-18 fluorodeoxyglucose (FDG) and an emission scan was performed from the skull vertex to the toes. Noncontrast CT was performed for attenuation correction and anatomic localization. The blood glucose level was 117 mg/dl. FINDINGS: HEAD AND NECK: Physiologic distribution of activity. Mildly increased metabolic activity about the glottis is likely physiologic. CHEST: Ovoid masslike nodule of the anterior segment right upper lobe redemonstrated measuring 2.1 x 1.5 cm on image 62 series 2 demonstrating hypermetabolic activity with SUV max of 4.3. Prominent 8 mm right paratracheal lymph node on image 63 series 2 demonstrates no significant hypermetabolic activity. Mild hypermetabolic activity about a 1.6 x 0.8 cm subcarinal lymph node demonstrates SUV max of 3.1. Mildly increased metabolic activity is noted about the left hilum, SUV max of 2.[address] image 66 of series 2, likely correlating with pulmonary vasculature without pathologic lymph node identified within this area. Lymph nodes of the chest have decreased in size from comparison. ABDOMEN AND PELVIS: There is a physiologic distribution of activity within the liver, spleen, adrenal glands, gastrointestinal and urinary tracts. Increased metabolic activity about the rectum is noted, SUV max of 5.1 with mild wall thickening seen on the CT images. No definite soft tissue mass. MUSCULOSKELETAL SYSTEM AND EXTREMITIES: Increased metabolic activity is noted about the bilateral shoulders and hips within a periarticular distribution, most notably within the surrounding soft tissues. There is a large right shoulder joint effusion with associated synovial calcifications. Small left shoulder joint effusion. Small bilateral hip joint effusions are also noted. Degenerative changes are seen about the spine, shoulders and hips. No definite evidence of erosive arthropathy. No suspicious lytic or blastic bony lesions. ADDITIONAL CT FINDINGS: Cardiomegaly. Coronary arterial and aortic calcifications are noted. Emphysema. Mild dependent subsegmental bibasilar atelectasis. Large hiatal hernia. Improved aeration of the bilateral lungs from comparison. Left renal cyst redemonstrated, 2.5 cm. Colonic diverticulosis without diverticulitis. Multiple urinary bladder diverticula. Prior hysterectomy. IMPRESSION: 1. Hypermetabolic nodule of the anterior segment right upper lobe measuring up to 2.1 cm suggests primary bronchogenic carcinoma. 2. Decreased size of mediastinal and hilar lymph nodes from comparison study 11/08/2017. Mildly hypermetabolic subcarinal lymph node is equivocal for physiologic reactive lymph node versus metastasis. 3. No evidence of distant metastatic disease. 4. Large joint effusion about the right shoulder with small left shoulder and bilateral hip joint effusions. Increased metabolic activity is noted within a periarticular distribution about the hips and shoulders which is likely on an inflammatory basis. 5. Circumferential wall thickening of the rectum with increased FDG uptake. Infectious or inflammatory proctitis or underlying mucosal neoplasm are differential considerations. Correlation with clinical exam and colonoscopy recommended. The above report was generated using voice recognition software. It may contain grammatical, syntax or spelling errors. Electronically signed by: Haim Norris M.D. 11/22/2017 12:37 PM Dictated Date/Time: 11/22/2017 11:35 AM
== END | disposition home or self-care (01) ==
LOC: C.PET 08:05
PROVIDERS: ATTEND Physician Assistant
DX: C34.91 Malignant neoplasm of unspecified part of right bronchus or lung (principal)

== ENCOUNTER 2018-04-28 15:35 | Inpatient (IN) ==
[2018-04-28] MEDS ORDERED: dilTIAZem HCl 125 MG in DEXTROSE 5% 100 ML IV STA (16:35)
[2018-04-28] MEDS ORDERED: dilTIAZem HCl 5 MG/ML 5 ML VIAL IV STA (16:35)
[2018-04-28] MEDS ORDERED: SODIUM CHLORIDE 0.9% 500 ML IV SCH (16:45)
[2018-04-28 16:56] LABS: Basophils # (auto) 0.06 K/uL (0-0.2); Basophils % (auto) 0.7 %; Eosinophils # (auto) 0.02 K/uL (0-0.5); Eosinophils % (auto) 0.2 %; Hematocrit (blood only) 27.1 % (37-47); Hemoglobin 8.8 g/dL (12.0-16.0); Immature Granulocytes # (auto) 0.18 K/uL (0.00-0.02); Immature Granulocytes % (auto) 2.1 %; Lymphocytes # (auto) 1.95 K/uL (1.2-3.4); Lymphocytes % (auto) 22.5 %; Mean Corpuscular Hgb Conc 32.5 g/dL (32-36); Mean Corpuscular Volume 104.6 fL (80-100); Mean Platelet Volume 9.6 fL (7.4-10.4); Monocytes # (auto) 1.77 K/uL (0.11-0.59); Monocytes % (auto) 20.4 %; Neutrophils % (auto) 54.1 %; Platelet Count 213 K/uL (130-400); RDW Coefficient of Variation 17.1 % (11.5-14.5); Red Blood Count 2.59 M/uL (4.2-5.4); White Blood Count 8.68 K/uL (4.8-10.8)
[2018-04-28 17:15] LABS: Poikilocytosis Present; Toxic Granulation 1+
[2018-04-28 17:30] LABS: Alanine Aminotransferase 18 U/L (12-78); Albumin Globulin Ratio 0.6 (0.9-2); Albumin Level 2.6 gm/dl (3.4-5.0); Alkaline Phosphatase 113 U/L (45-117); Bilirubin,Total 0.5 mg/dl (0.2-1); Blood Urea Nitrogen 25 mg/dl (7-18); Calcium 7.3 mg/dl (8.5-10.1); Carbon Dioxide 19 mmol/L (21-32); Chloride 110 mmol/L (98-107); Creatinine Clr Calc Pharmacy 22.7 ml/min; Est GFR (African American) 36.5; Est GFR (Non-African American) 31.5; Globulin 4.5 gm/dl (2.5-4.0); Glucose 113 mg/dl (70-99); Sodium 140 mmol/L (136-145); Total Protein 7.1 gm/dl (6.4-8.2); Troponin I < 0.015 ng/ml (0-0.045)
--- NOTE | 2018-04-28 17:51 | XRay Report ---
XR chest 1V portable CLINICAL HISTORY: weakness mental status change COMPARISON STUDY: 11/09/2017 FINDINGS: Mild stable cardia megaly. Lungs are clear. Diaphragms smooth. IMPRESSION: Mild stable cardiomegaly. Otherwise negative study. The above report was generated using voice recognition software. It may contain grammatical, syntax or spelling errors. Electronically signed by: Enrique Reyes M.D. 04/28/2018 5:50 PM
[2018-04-28 18:55] LABS: Magnesium 1.4 mg/dl (1.8-2.4); Potassium 4.4 mmol/L (3.5-5.1)
--- NOTE | 2018-04-28 19:41 | History & Physical Report ---
Date of Service April 28, 2018 Assessment & Plan (1) A-fib: Cardizem drip, cardiac evaluation, IV heparin, continue metoprolol (2) Anemia: Monitor daily labs Present on Admission?: Yes (3) Diabetes mellitus, type II: Sliding-scale insulin, was not on any anti-hyperglycemic medications (4) HTN (hypertension): Continue metoprolol and Cardizem drip (5) HLD (hyperlipidemia): Not on any current hyperlipidemic medications (6) COPD (chronic obstructive pulmonary disease): Just diagnosed with COPD will monitor (7) GERD (gastroesophageal reflux disease): PPI ordered (8) Adenocarcinoma, lung: Scheduled to have surgery with Dr. Hickman on 05/04 (9) Anxiety: PRN lorazepam (10) Osteoporosis: No issues at this time (11) CAD (coronary artery disease): Continue metoprolol, nitroglycerin, aspirin, amlodipine History of Present Illness Chief Complaint: Found to be in A. fib with RVR at Dr. Shaffer's office her recruitment officer oncologist Primary Care Provider: Binu Lewis, DO 78-year-old female with a past medical history of anemia, type 2 diabetes, hypertension, hyperlipidemia, pneumonia, COPD, GERD, adenocarcinoma of the lung , right upper lobe pulmonary nodule, anxiety, CAD, osteoporosis, who was at Dr. Shaffer's office her recruitment officer oncologist for a checkup. 1 of his RNs came in and said she has not had her heart checked in a while and performed an EKG. She was found to be in A. fib with rapid ventricular response and denies a history of A. fib. She was sent over to Dr. Lewis for an evaluation and he sent her to the emergency room where she was found to be in A. fib with rapid ventricular response in the low 100s. She will be seen by cardiology, and is on a Cardizem drip. She was supposed to see Dr. Hickman on 05/04 for a tumor resection in the lung. Assessment and Plan ROS-No Headache, No Visual Changes, No Fever, No Chills, No Neck Pain or Stiffness, No Chest Pain, No Palpitations, No SOB, No ARSHAD, No Cough, No Sputum, No Wheezing, No Abdominal Pain, No Diarrhea, No Hematemesis, No Hemoptysis, No Unexpected Weight Loss, No Flank pain, No Melena, No Hematochezia, No Frequency , No Urgency, No Burning, No Hematuria, No Rashes, No Diaphoresis. Appetite is Normal Physical Exam Gen-AAO x 3, NAD, Afebrile Head-NCAT, EOMI, PERRLA, Anicteric Sclera, No Posterior Pharyngeal Erythema Neck-Supple, No JVD, No Thyromegaly, No Masses, No LAD, No Bruits Lungs-Clear to Auscultation Bilaterally, No Rales, No Rhonchi, No Wheezing, No Crepitus Chest-irregularly irregular, no S4, +S1, +S2, No S3, positive stock ejection murmur, loudest in the upper right sternal border, No Rubs, No Gallops, positive ectopy Abdomen-Soft, Bowel Sounds Present, Non Tender, Non Distended, No Hepatomegaly, No Splenomegaly, No Palpable Masses, No Rebound, No Rigidity, No Guarding Musculoskeletal-Full Range of Motion Bilaterally, No CVAT Extremities-No Cyanosis, No Clubbing, No Edema Nuero-Cranial Nerves II-XII grossly intact, Motor WNL, DTRs WNL, Strength WNL, No Focal Psych-Normal Mood PMH-diabetes, hypertension, COPD, CAD, lung cancer adenocarcinoma, esophageal cancer, GERD PSH-tonsils and adenoids been removed, appendectomy, total hysterectomy, cataract surgery, 4 C-sections FH-mother of CVA and had acute CA, father of an acute CA, had a CVA and COPD, one healthy brother one healthy sister, 2 healthy sons and a healthy daughter SH-denies alcohol, quit smoking in 1992 was a pack-a-day smoker for 40 years. Meds reviewed and Reconciled Labs Reviewed Allergies Allergy/AdvReac Type Severity Reaction Status Date / Time lisinopril Allergy Intermediate RASH Verified 04/28/18 18:25 zolpidem AdvReac Severe hallucinati Verified 04/28/18 18:25 ons Home Medications Home Medications Medication Instructions Recorded Confirmed Type albuterol sulfate [Ventolin HFA] 1 puff INHALATION Q6H PRN 04/21/18 04/28/18 History amlodipine 5 mg PO QAM 04/21/18 04/28/18 History aspirin [Ecotrin] 325 mg PO QAM 04/21/18 04/28/18 History budesonide-formoterol [Symbicort] 2 puff INHALATION BID 04/21/18 04/28/18 History diphenhydramine HCl [Benadryl] 25 mg PO HS PRN 04/21/18 04/28/18 History lorazepam 0.5 mg PO HS PRN 04/21/18 04/28/18 History metoprolol tartrate 100 mg PO BID 04/21/18 04/28/18 History pantoprazole 40 mg PO DAILY 04/21/18 04/28/18 History Magic Swizzle 30 ml PO QID PRN 04/28/18 History folic acid 1 mg PO DAILY 04/28/18 04/28/18 History hydrocodone-acetaminophen 1 tab PO Q6H PRN 04/28/18 04/28/18 History nitroglycerin 0.4 mg SUBLINGUAL UD PRN 04/28/18 04/28/18 History ondansetron 8 mg PO TID PRN 04/28/18 04/28/18 History prochlorperazine maleate 10 mg PO Q6 PRN 04/28/18 04/28/18 History [Compazine] tiotropium bromide [Spiriva 2 puff INHALATION DAILY 04/28/18 04/28/18 History Respimat] Past Med/Surg History Medical History Anemia Cancer LUNG CANCER S/P RECENT CHEMO (COMPLETED 04/01/18) Chronic obstructive pulmonary disease GERD (gastroesophageal reflux disease) Hiatal hernia Hyperlipidemia Hypertension Myocardial Infarction 1992= MEDICAL MANAGEMENT Osteoarthritis Osteoporosis Surgical History History of adenoidectomy History of appendectomy History of arthroscopy RIGHT KNEE History of cardiac cath 1992= NO STENTS History of cataract surgery BILATERAL History of section X4 History of colonoscopy History of hysterectomy JOSE WITH BSO History of lung surgery NAVIGATIONAL BRONCH/EBUS= 11/09/17= GRADE I VIEW, MAC 3, ETT 8.0 AT [facility] History of tonsillectomy History of tooth extraction Family History Grandfather (Paternal) Family hx of colon cancer Social History Current Living Situation: Other Current Living Situation Comment: HAS A DISABLED SON LIVING WITH HER PLUS NURSING CARE POST OP Feels Safe at Home: Yes Smoking Status: Former smoker Cigarettes per Day: 1/2 PPD X 15 YEARS Hx Alcohol Use: Yes Alcohol Intake Frequency: holidays/special occasions only Hx Substance Use: No Beliefs That Will Affect Care: None Preferred Language: Telugu Communication Ability: Effective Physical Exam 2 Vital Signs (Past 24 Hours): Last Vital Signs Temp 36.4 C L 04/28/18 15:47 Pulse 99 H 04/28/18 19:22 Resp 20 04/28/18 19:22 BP 99/57 L 04/28/18 19:01 Pulse Ox 95 04/28/18 19:22 Results & Data Laboratory Results Allergies lisinopril Allergy (Intermediate, Verified 04/28/18 18:25) RASH zolpidem Adverse Reaction (Severe, Verified 04/28/18 18:25) hallucinations Height/Weight/Isolation Height 4 ft 10 in Weight 60.9 kg Chemistry 04/28/18 04/28/18 16:34 17:57 Sodium 140 Potassium 4.4 Chloride 110 H Carbon Dioxide 19 L Anion Gap 11.0 BUN 25 H Creatinine 1.55 H Glucose 113 H _ (1) A-fib Atrial fibrillation type: unspecified Qualified Code(s): I48.91 - Unspecified atrial fibrillation (2) Anemia Anemia type: unspecified type Bone marrow failure anemia type: Chronic kidney disease stage: Folate deficiency anemia type: Hemolytic anemia type: Iron deficiency anemia type: Other causes of anemia: Vitamin B12 deficiency anemia type: Qualified Code(s): D64.9 - Anemia, unspecified
[2018-04-28] MEDS ORDERED: ALBUTEROL HFA 8 GM INHALER INH PRN (20:48)
[2018-04-28] MEDS ORDERED: dilTIAZem HCl 125 MG in DEXTROSE 5% 100 ML IV PRN (20:48)
[2018-04-28] MEDS ORDERED: GLUCOSE 10 TABS/TUBE PO PRN (20:48)
[2018-04-28] MEDS ORDERED: LORazepam 0.5 MG TAB PO PRN (20:48)
[2018-04-28] MEDS ORDERED: POLYETHYLENE (MIRALAX) 17 GM PACK PO PRN (20:48)
[2018-04-28] MEDS ORDERED: MoRPHine SULFATE 2 MG/ML CARP IV PRN (20:48)
[2018-04-28] MEDS ORDERED: PROCHLORPERAZINE MALEATE 10 MG TAB PO PRN (20:48)
[2018-04-28] MEDS ORDERED: ACETAMINOPHEN 325 MG TAB PO PRN (20:48)
[2018-04-28] MEDS ORDERED: CARBOHYDRATES FOR HYPOGLYCEMIA PO PRN (20:48)
[2018-04-28] MEDS ORDERED: NITROGLYCERIN SL 0.4 MG/TAB TAB SL PRN (20:48)
[2018-04-28] MEDS ORDERED: GLUCOSE 40% GEL 15 GM TUBE PO PRN (20:48)
[2018-04-28] MEDS ORDERED: DEXTROSE 50% 50 ML SYRINGE IV PRN (20:48)
[2018-04-28] MEDS ORDERED: GLUCAGON FOR INJ 1 MG VIAL SQ PRN (20:48)
[2018-04-28 21:22] LABS: Appearance Urine Cloudy (Clear); Bilirubin Urine Negative (Negative); Color Urine Yellow; Glucose Urine UA Negative (Negative); Ketones Urine Negative (Negative); Leukocyte Esterase Urine 3+ (Negative); Nitrite Urine Negative (Negative); Protein Urine 1+ (Negative); Urobilinogen Urine Negative (Negative)
[2018-04-28 21:32] LABS: Bacteria Urine 1+ (Negative); RBC Urine 0-4 /hpf (0-4); WBC Urine >30 /hpf (0-5)
--- NOTE | 2018-04-28 22:12 | Emergency Department Note ---
Entered by Jorge A Bustos acting as a scribe for History of Present Illness General Chief complaint: Shortness of Breath/Dyspnea Stated complaint: SOB Time Seen by Provider: 04/28/18 15:53 Source: patient Limitations: no limitations History of Present Illness Provider complaint: SOB Onset (ago): hour(s) Location: chest (SOB) Pain Consistency: + intermittent Quality: + other (SOB) Associated symptoms: no chest pain Treatments prior to arrival: none The patient is a 78 year old female who presents to the Emergency Room with complaints of intermittent shortness of breath that she first noticed today. The patient states that she felt short of breath today when she walked outside to go to her doctors appointment. She does note a history of COPD and adds that she has inhalers at home. While at her primary care office she was found to be tachycardic and was referred to the emergency department. The patient denies any chest pain throughout the day today. She also denies any history of atrial fibrillation or anticoagulation therapy. However, she does have a history of myocardial infarction in 1992 over 24 years ago. The patient has lung cancer and had her last chemotherapy infusion about 1 month ago. Home Medications Home Medications Medication Instructions Recorded Confirmed Type albuterol sulfate [Ventolin HFA] 1 puff INHALATION Q6H PRN 04/21/18 04/28/18 History amlodipine 5 mg PO QAM 04/21/18 04/28/18 History aspirin [Ecotrin] 325 mg PO QAM 04/21/18 04/28/18 History budesonide-formoterol [Symbicort] 2 puff INHALATION BID 04/21/18 04/28/18 History diphenhydramine HCl [Benadryl] 25 mg PO HS PRN 04/21/18 04/28/18 History lorazepam 0.5 mg PO HS PRN 04/21/18 04/28/18 History metoprolol tartrate 100 mg PO BID 04/21/18 04/28/18 History pantoprazole 40 mg PO DAILY 04/21/18 04/28/18 History Magic Swizzle 30 ml PO QID PRN 04/28/18 History folic acid 1 mg PO DAILY 04/28/18 04/28/18 History hydrocodone-acetaminophen 1 tab PO Q6H PRN 04/28/18 04/28/18 History nitroglycerin 0.4 mg SUBLINGUAL UD PRN 04/28/18 04/28/18 History ondansetron 8 mg PO TID PRN 04/28/18 04/28/18 History prochlorperazine maleate 10 mg PO Q6 PRN 04/28/18 04/28/18 History [Compazine] tiotropium bromide [Spiriva 2 puff INHALATION DAILY 04/28/18 04/28/18 History Respimat] Allergies Allergy/AdvReac Type Severity Reaction Status Date / Time lisinopril Allergy Intermediate RASH Verified 04/28/18 18:25 zolpidem AdvReac Severe hallucinati Verified 04/28/18 18:25 ons Past Med/Surg History Medical History Anemia Cancer LUNG CANCER S/P RECENT CHEMO (COMPLETED 04/01/18) Chronic obstructive pulmonary disease GERD (gastroesophageal reflux disease) Hiatal hernia Hyperlipidemia Hypertension Myocardial Infarction 1992= MEDICAL MANAGEMENT Osteoarthritis Osteoporosis Surgical History History of adenoidectomy History of appendectomy History of arthroscopy RIGHT KNEE History of cardiac cath 1992= NO STENTS History of cataract surgery BILATERAL History of section X4 History of colonoscopy History of hysterectomy JOSE WITH BSO History of lung surgery NAVIGATIONAL BRONCH/EBUS= 11/09/17= GRADE I VIEW, MAC 3, ETT 8.0 AT [facility] History of tonsillectomy History of tooth extraction Family History Grandfather (Paternal) Family hx of colon cancer Social History Current Living Situation: Family and Other Current Living Situation Comment: HAS A DISABLED SON LIVING WITH HER PLUS NURSING CARE POST OP Other Information That Helps Us Care for You: No Feels Safe at Home: Yes Smoking Status: Former smoker Cigarettes per Day: 1/2 PPD X 15 YEARS Hx Alcohol Use: Yes Alcohol Intake Frequency: holidays/special occasions only Hx Substance Use: No Beliefs That Will Affect Care: None Preferred Language: Moroccan Communication Ability: Effective Licensed Staff Mft Required: No Review of Systems See HPI for pertinent positives & negatives. and A total of 10 systems reviewed and were otherwise negative Physical Exam Vital Signs Vital Signs - 24 hr 04/28/18 15:47 04/28/18 16:13 04/28/18 17:13 Temperature 36.4 C L Temperature Source Oral Sepsis Recent Fever Within 48 Hours No Sepsis Action Taken by Nursing No Action Required Pulse Rate 91 H Pulse Rate [Apical] 126 H 129 H Pulse Rhythm [Apical] Irregular Irregular Respiratory Rate 16 15 17 Respiratory Effort / Characteristics Non-Labored Spontaneous Non-Labored Spontaneous Respiratory Depth Deep Normal Normal Respiratory Pattern Regular Regular Blood Pressure 141/79 H Blood Pressure [Left Arm] 116/81 Blood Pressure [Right Arm] 104/78 Blood Pressure Mean 99 Blood Pressure Mean [Left Arm] 92 Blood Pressure Mean [Right Arm] 86 Blood Pressure Position Sitting Pulse Oximetry 95 99 98 Oxygen Delivery Method Room Air Room Air Room Air 04/28/18 17:31 04/28/18 17:51 04/28/18 18:00 Temperature Temperature Source Sepsis Recent Fever Within 48 Hours Sepsis Action Taken by Nursing Pulse Rate 117 H 97 H Pulse Rate [Apical] 107 H Pulse Rhythm [Apical] Irregular Respiratory Rate 18 17 22 Respiratory Effort / Characteristics Respiratory Depth Respiratory Pattern Blood Pressure 111/87 Blood Pressure [Left Arm] Blood Pressure [Right Arm] Blood Pressure Mean 95 Blood Pressure Mean [Left Arm] Blood Pressure Mean [Right Arm] Blood Pressure Position Pulse Oximetry 97 98 Oxygen Delivery Method Room Air 04/28/18 18:16 04/28/18 18:32 04/28/18 18:43 Temperature Temperature Source Sepsis Recent Fever Within 48 Hours Sepsis Action Taken by Nursing Pulse Rate 115 H Pulse Rate [Apical] 106 H 102 H Pulse Rhythm [Apical] Irregular Respiratory Rate 20 20 Respiratory Effort / Characteristics Respiratory Depth Respiratory Pattern Blood Pressure 135/116 H Blood Pressure [Left Arm] 117/96 Blood Pressure [Right Arm] Blood Pressure Mean 122 Blood Pressure Mean [Left Arm] 103 Blood Pressure Mean [Right Arm] Blood Pressure Position Pulse Oximetry 97 94 98 Oxygen Delivery Method Room Air Room Air 04/28/18 19:01 04/28/18 19:22 04/28/18 19:31 Temperature Temperature Source Sepsis Recent Fever Within 48 Hours Sepsis Action Taken by Nursing Pulse Rate 109 H 100 H Pulse Rate [Apical] 99 H Pulse Rhythm [Apical] Irregular Respiratory Rate 19 20 19 Respiratory Effort / Characteristics Respiratory Depth Respiratory Pattern Blood Pressure 99/57 L 119/78 Blood Pressure [Left Arm] Blood Pressure [Right Arm] Blood Pressure Mean 71 91 Blood Pressure Mean [Left Arm] Blood Pressure Mean [Right Arm] Blood Pressure Position Pulse Oximetry 96 95 96 Oxygen Delivery Method Room Air Room Air 04/28/18 19:55 04/28/18 20:01 04/28/18 20:02 Temperature Temperature Source Sepsis Recent Fever Within 48 Hours Sepsis Action Taken by Nursing Pulse Rate 109 H 108 H Pulse Rate [Apical] 94 H Pulse Rhythm [Apical] Irregular Respiratory Rate 18 21 Respiratory Effort / Characteristics Respiratory Depth Respiratory Pattern Blood Pressure 106/63 Blood Pressure [Left Arm] Blood Pressure [Right Arm] Blood Pressure Mean 77 Blood Pressure Mean [Left Arm] Blood Pressure Mean [Right Arm] Blood Pressure Position Pulse Oximetry 96 95 96 Oxygen Delivery Method Room Air Room Air GENERAL: Patient is in no acute distress. HEENT: No acute trauma, normocephalic atraumatic, mucous membranes moist, no nasal congestion, no scleral icterus. NECK: No stridor, no adenopathy, no meningismus, trachea is midline. LUNGS: Clear to auscultation bilaterally, no wheeze, no rhonchi, breath sounds equal. HEART: Tachycardic rate with irregular rhythm. No murmurs. ABDOMEN: Soft, nontender, bowel sounds positive, no hernias, no peritonitis. EXTREMITIES: No cyanosis or edema, full range of motion of all the joints without pain or difficulty, no signs for acute trauma. NEUROLOGIC: Oriented x 3, no acute motor or sensory deficits, no focal weakness. SKIN: No rash, no jaundice, no diaphoresis. Rectal: Heme negative with brown stool. Course 174: Past medical records reviewed. The patient was evaluated in room B12B, and a complete history and physical examination were performed. 175: [facility] the [facility] She will evaluate the patient for further management. Consultations Consultation #1: [id number]: I reviewed the patient's [facility] She will evaluate the patient for further management. Administered Medications Discontinued Medications Diltiazem HCl (Cardizem) 10 mg IV NOW STA Stop: 04/28/18 16:36 Last Admin: 04/28/18 17:18 Dose: 10 mg Diltiazem HCl 125 mg/ Dextrose 125 mls @ 0 mls/hr IV .Q0M STA; Protocol Stop: 04/28/18 16:36 Last Titration: 04/28/18 18:18 Dose: 10 mg/hr, 10 mls/hr Admin: 04/28/18 17:44 Dose: 5 mg/hr, 5 mls/hr Sodium Chloride (Nss) 500 mls @ 999 mls/hr IV .Q31M STEFAN Stop: 04/28/18 17:15 Last Infusion: 04/28/18 18:20 Dose: 0 mls/hr Admin: 04/28/18 17:16 Dose: 999 mls/hr Medical Decision Making Differential Diagnosis Differential Diagnosis includes: electrolyte or metabolic abnormality, anemia, dehydration, atrial fibrillation, atrial flutter, SVT, myocardial infarction, thyroid disorder. Medical Records Attestation: I reviewed the patient's medical records. Home Medications Current Medication List: was personally reviewed by me Laboratory Data Attestation: I reviewed the patient's lab results. Result diagrams: 04/28/18 16:34 04/28/18 17:57 Lab Results 04/28/18 04/28/18 04/28/18 Range/Units 16:34 16:34 17:57 WBC 8.68 (4.8-10.8) K/uL RBC 2.59 L (4.2-5.4) M/uL Hgb 8.8 L (12.0-16.0) g/dL Hct 27.1 L (37-47) % MCV 104.6 H (80-100) fL MCH 34.0 (25-34) pg MCHC 32.5 (32-36) g/dL RDW Std Deviation 63.0 H (36.4-46.3) fL RDW Coeff of Ilya 17.1 H (11.5-14.5) % Plt Count 213 (130-400) K/uL MPV 9.6 (7.4-10.4) fL Immature Gran % (Auto) 2.1 % Neut % (Auto) 54.1 % Lymph % (Auto) 22.5 % Angelina % (Auto) 20.4 % Eos % (Auto) 0.2 % Baso % (Auto) 0.7 % Immature Gran # (Auto) 0.18 H (0.00-0.02) K/uL Neut # (Auto) 4.70 (1.4-6.5) K/uL Lymph # (Auto) 1.95 (1.2-3.4) K/uL Angelina # (Auto) 1.77 H (0.11-0.59) K/uL Eos # (Auto) 0.02 (0-0.5) K/uL Baso # (Auto) 0.06 (0-0.2) K/uL Toxic Granulation 1+ Poikilocytosis Present Sodium 140 (136-145) mmol/L Potassium 4.4 (3.5-5.1) mmol/L Chloride 110 H (98-107) mmol/L Carbon Dioxide 19 L (21-32) mmol/L Anion Gap 11.0 (3-11) BUN 25 H (7-18) mg/dl Creatinine 1.55 H (0.6-1.2) mg/dl Est Cr Clr Drug Dosing 22.7 ml/min Est GFR ( Amer) 36.5 Est GFR (Non-Af Amer) 31.5 BUN/Creatinine Ratio 16.0 (10-20) Glucose 113 H (70-99) mg/dl POC Glucose (70-99) Calcium 7.3 L (8.5-10.1) mg/dl Magnesium 1.4 L (1.8-2.4) mg/dl Total Bilirubin 0.5 (0.2-1) mg/dl AST 53 H (15-37) U/L ALT 18 (12-78) U/L Alkaline Phosphatase 113 (45-117) U/L Troponin I < 0.015 (0-0.045) ng/ml Total Protein 7.1 (6.4-8.2) gm/dl Albumin 2.6 L (3.4-5.0) gm/dl Globulin 4.5 H (2.5-4.0) gm/dl Albumin/Globulin Ratio 0.6 L (0.9-2) TSH 1.050 (0.300-4.500) uIu/ml Specimen Hemolysis Urine Color Urine Appearance (Clear) Urine pH (4.5-7.5) Ur Specific [place] (1.000-1.030) Urine Protein (Negative) Urine Glucose (UA) (Negative) Urine Ketones (Negative) Urine Blood (Negative) Urine Nitrite (Negative) Urine Bilirubin (Negative) Urine Urobilinogen (Negative) Ur Leukocyte Esterase (Negative) Urine RBC (0-4) /hpf Urine WBC (0-5) /hpf Ur Epithelial Cells (0-5) /lpf Urine Bacteria (Negative) 04/28/18 04/28/18 Range/Units 20:45 21:46 WBC (4.8-10.8) K/uL RBC (4.2-5.4) M/uL Hgb (12.0-16.0) g/dL Hct (37-47) % MCV (80-100) fL MCH (25-34) pg MCHC (32-36) g/dL RDW Std Deviation (36.4-46.3) fL RDW Coeff of Ilya (11.5-14.5) % Plt Count (130-400) K/uL MPV (7.4-10.4) fL Immature Gran % (Auto) % Neut % (Auto) % Lymph % (Auto) % Angelina % (Auto) % Eos % (Auto) % Baso % (Auto) % Immature Gran # (Auto) (0.00-0.02) K/uL Neut # (Auto) (1.4-6.5) K/uL Lymph # (Auto) (1.2-3.4) K/uL Angelina # (Auto) (0.11-0.59) K/uL Eos # (Auto) (0-0.5) K/uL Baso # (Auto) (0-0.2) K/uL Toxic Granulation Poikilocytosis Sodium (136-145) mmol/L Potassium (3.5-5.1) mmol/L Chloride (98-107) mmol/L Carbon Dioxide (21-32) mmol/L Anion Gap (3-11) BUN (7-18) mg/dl Creatinine (0.6-1.2) mg/dl Est Cr Clr Drug Dosing ml/min Est GFR ( Amer) Est GFR (Non-Af Amer) BUN/Creatinine Ratio (10-20) Glucose (70-99) mg/dl POC Glucose 111 H (70-99) Calcium (8.5-10.1) mg/dl Magnesium (1.8-2.4) mg/dl Total Bilirubin (0.2-1) mg/dl AST (15-37) U/L ALT (12-78) U/L Alkaline Phosphatase (45-117) U/L Troponin I (0-0.045) ng/ml Total Protein (6.4-8.2) gm/dl Albumin (3.4-5.0) gm/dl Globulin (2.5-4.0) gm/dl Albumin/Globulin Ratio (0.9-2) TSH (0.300-4.500) uIu/ml Specimen Hemolysis Urine Color Yellow Urine Appearance Cloudy H (Clear) Urine pH 6.0 (4.5-7.5) Ur Specific [place] 1.020 (1.000-1.030) Urine Protein 1+ H (Negative) Urine Glucose (UA) Negative (Negative) Urine Ketones Negative (Negative) Urine Blood 1+ H (Negative) Urine Nitrite Negative (Negative) Urine Bilirubin Negative (Negative) Urine Urobilinogen Negative (Negative) Ur Leukocyte Esterase 3+ H (Negative) Urine RBC 0-4 (0-4) /hpf Urine WBC >30 H (0-5) /hpf Ur Epithelial Cells >30 H (0-5) /lpf Urine Bacteria 1+ H (Negative) Imaging Data Radiologist's Impression: Radiology results as stated below per my review and the radiologist's interpretation: XR chest 1V portable CLINICAL HISTORY: weakness mental status change COMPARISON STUDY: 11/09/2017 FINDINGS: Mild stable cardia megaly. Lungs are clear. Diaphragms smooth. IMPRESSION: Mild stable cardiomegaly. Otherwise negative study. The above report was generated using voice recognition software. It may contain grammatical, syntax or spelling errors. Electronically signed by: Enrique Reyes M.D. 04/28/2018 5:50 PM ECG Data Attestation: I personally reviewed and interpreted this ECG as follows: Indication: tachycardia Rate (beats per minute): 124 Rhythm: atrial fibrillation Findings: + nonspecific-ST abn; no PVC and no ST elevation Blood Pressure Blood Pressure Findings: Elevated blood pressure Blood Pressure Disposition: elevated BP felt to be situational MDM Narrative There is no leukocytosis. The patient is anemic with a hemoglobin of 8.8. Stool is brown and heme-negative by my testing. No evidence for kidney failure. Magnesium low at 1.4. EKG showed a rapid A. fib. Cardiac enzyme testing x1 is not consistent with acute cardiac injury. Patient appeared to be in a euthyroid state. No evidence for hepatitis. Chest film did not show pneumonia or CHF. The patient received IV saline. She was given a bolus of IV diltiazem and then placed on a diltiazem drip. The tachycardia improved with the diltiazem IV. The patient deserves a hospital stay. She presents short of breath and tachycardic with a new onset of rapid A. fib. I did speak to the patient and case consultant. The on-call hospitalist was consulted. Impression & Plan A-fib, Anemia Critical Care Time I have personally spent greater than 32 minutes of critical care time in the direct management of this patient. This includes bedside care, interpretation of diagnostic studies and testing, discussion with consultants, the patient, and family members, and other required patient management activities. This 32 minutes is in excess of all separately billable procedures. Critical Care Time: Yes Total Critical Care Time: 32 Discharge Plan Visit Data *Final* Discharge Date/Time: 04/28/18 20:30 Chief Complaint: Shortness of Breath/Dyspnea Stated Complaint: SOB ED Provider: Michele Chavez Discharge Problem: A-fib, Anemia Patient Disposition: Admitted As Inpatient Discharge Instructions Interventions: ED Discharge Assessment Last Done: 04/28/18 20:30 The scribe's documentation has been prepared under my direction and personally reviewed by me in its entirety. I confirm that the note above accurately reflects all work, treatment, procedures, and medical decision making performed by me.
[2018-04-28] MEDS ORDERED: Heparin IV Standard *NO* Bolus ONE (22:41)
[2018-04-28] MEDS ORDERED: HEPARIN STANDARD DEXTROSE 25,000 UNITS/500 ML IV SCH (22:56)
[2018-04-28] MEDS ORDERED: PHARMACY GLYCEMIC MGMT CONSULT PRN (22:57)
[2018-04-28 23:31] LABS: INR 1.2 (0.9-1.1); Partial Thromboplastin Ratio 1.1; Partial Thromboplastin Time 27.8 Seconds (21.0-31.0)
[2018-04-28] MEDS: METOPROLOL TARTRATE 100 MG TAB PO SCH (23:50)
[2018-04-28] MEDS: BUDESONIDE/FORMOTEROL FUMARATE 160/4.5 60 PUFFS/INHALER INH SCH (23:52)
[2018-04-29 06:35] LABS: Hematocrit (blood only) 24.4 % (37-47); Mean Corpuscular Hgb Conc 32.8 g/dL (32-36); Mean Corpuscular Volume 104.7 fL (80-100); Mean Platelet Volume 9.7 fL (7.4-10.4); Platelet Count 175 K/uL (130-400); RDW Coefficient of Variation 17.4 % (11.5-14.5); RDW Standard Deviation 63.5 fL (36.4-46.3); Red Blood Count 2.33 M/uL (4.2-5.4); White Blood Count 7.04 K/uL (4.8-10.8)
[2018-04-29 07:05] LABS: INR 1.3 (0.9-1.1); Prothrombin Time 12.5 Seconds (9.0-12.0)
[2018-04-29 07:07] LABS: Partial Thromboplastin Time 50.8 Seconds (21.0-31.0)
[2018-04-29 07:11] LABS: BUN Creatinine Ratio 16.2 (10-20); Calcium 6.7 mg/dl (8.5-10.1); Creatinine Clr Calc Pharmacy 23.8 ml/min; Est GFR (African American) 38.3; Est GFR (Non-African American) 33.1; Potassium 3.8 mmol/L (3.5-5.1)
[2018-04-29] MEDS: INSULIN ASPART 100 UNITS/ML 3 ML PEN SC SCH ×4 (08:19→20:57)
[2018-04-29 08:23] LABS: Estimated Average Glucose 137 mg/dl
[2018-04-29] MEDS: PANTOprazole 40 MG TAB PO SCH (08:30)
[2018-04-29] MEDS: METOPROLOL TARTRATE 100 MG TAB PO SCH ×2 (08:30→20:56)
[2018-04-29] MEDS: AMLODIPINE BESYLATE 5 MG TAB PO SCH (08:30)
[2018-04-29] MEDS: BUDESONIDE/FORMOTEROL FUMARATE 160/4.5 60 PUFFS/INHALER INH SCH ×2 (08:31→20:57)
[2018-04-29] MEDS: TIOTROPIUM BROMIDE 5 PUFF/90 MCG INH INH SCH (08:31)
[2018-04-29] MEDS: FOLIC ACID 1 MG TAB PO SCH (08:31)
--- NOTE | 2018-04-29 08:39 | Pharmacy Report ---
Glycemic Control Consultation - Date of Service April 29, 2018 - Scope Scope: Glycemic Pharmacist consulted by Dr Garcia on 04/28/17 for glycemic control and to write orders per [facility] inpatient glycemic control protocol - Objective Weight: 61.6 kg Accuchecks BSG (last 24hrs): 04/28/18 04/28/18 04/29/18 16:34 21:46 05:56 Glucose 113 H 119 H POC Glucose 111 H 04/29/18 07:59 Glucose POC Glucose 128 H Laboratory Data (last 24hrs): 04/28/18 04/28/18 04/29/18 16:34 17:57 05:56 Potassium 4.4 3.8 Carbon Dioxide 19 L 20 L Anion Gap 11.0 9.0 Creatinine 1.55 H 1.49 H Est Cr Clr Drug Dosing 22.7 23.8 HbA1c: Hemoglobin A1c 6.4 % (4.5-5.6) H 04/29/18 05:56 - Recent Pertinent Medications Outpatient Anti-diabetic Regimen: * None * A1c = 6.4 % 04/29/18 Risk Factors for Insulin Resistance: * IVF: IV heparin and diltiazem * Diet: AHA - Assessment & Plan Assessment & Plan: ASSESSMENT: * 78 year old type 2 diabetic (A1c 6.4%) admitted with Afib, started on IV Heparin and diltiazem. * Patient on no antidiabetic medications at home, will start with only a correction factor at this time, blood sugars at goal. PLAN FOR INPATIENT GLYCEMIC CONTROL: * Bolus insulin * NovoLog per scale ACHS or Q6hrs while NPO * Goal Range: Low 110 mg/dL - High 140 mg/dL * Correction Factor: 40 mg/dL/unit * Please note that the plan above was derived based on current level of insulin resistance and hospital stress. These recommendations are appropriate for inpatient admission only. Plan of care upon discharge will need to be reassessed to avoid potential outpatient hypo/hyperglycemia. Thank you.
[2018-04-29] MEDS ORDERED: ASPIRIN 325 MG ECTAB PO SCH (09:00)
[2018-04-29] MEDS ORDERED: CALCIUM GLUCONATE 10% 2,000 MG in SODIUM CHLORIDE 0.9% 50 ML IV ONE (09:45)
[2018-04-29] MEDS ORDERED: APIXABAN 5 MG TABLET PO SCH (10:45)
[2018-04-29] MEDS: dilTIAZem HCL 120 MG CAPCR PO SCH (11:23)
[2018-04-29] MEDS: ASPIRIN 81 MG ECTAB PO SCH (11:23)
[2018-04-29] MEDS: MAGNESIUM SULFATE / D5W 1 GM/100 ML BAG IV SCH ×4 (13:42→17:05)
--- NOTE | 2018-04-29 16:42 | Hospitalist Progress Note ---
Date of Service April 29, 2018 Assessment & Plan (1) A-fib: New onset atrial fibrillation. Initial troponin was negative, patient is without chest pain or shortness of breath today, she did have shortness of breath yesterday. Echocardiogram today reveals LVH, EF of 55-60%, hypokinesis of inferior posterior basal wall, severe TR and evidence of pulmonary hypertension. Patient is on IV heparin and diltiazem drip. Per cardiology will transition to apixaban and diltiazem p.o., respectively. Long-term plan per cardiology. Currently rate controlled and asymptomatic. Continue to monitor on telemetry and titrate calcium channel don as needed. (2) ROSEMARY (acute kidney injury): Possibly secondary to dehydration. Repeat in a.m. after fluids given with drips. (3) Adenocarcinoma, lung: The patient was recently diagnosed in November 2017 and has been on chemotherapy with last dose on 04/01. She is scheduled to have surgery with Dr. Hickman on 05/04. (4) Anemia: Macrocytic anemia noted on labs. Large drop in H&H in the last 6 months from to 8.8/. She began chemotherapy in November 2017, and malignancy with chemotherapy is likely the cause of this anemia. There is no active bleeding at this time. (5) Diabetes mellitus, type II: Correction factor insulin without carb coverage ordered. She did not come in on anti-glycemic's. She is a diet-controlled diabetic with an A1c of 6.4 reflecting good control as an outpatient. Blood sugars are currently at goal. (6) HTN (hypertension): She takes amlodipine 5 mg p.o. every morning, metoprolol 100 p.o. twice daily as an outpatient. These were continued as an inpatient in addition to a diltiazem drip. She is now on p.o. diltiazem for additional rate control. (7) COPD (chronic obstructive pulmonary disease): Stable, no evidence of exacerbation. (8) Anxiety: PRN Lorazepam (9) CAD (coronary artery disease): She has a history of coronary artery disease status post PCI and Rotablator to the RCA in 1992 with residual nonobstructive disease of the LAD. She is medically managed with atorvastatin, aspirin, losartan and metoprolol. (10) Hypomagnesemia: Hypomagnesemia possibly secondary to chemotherapy versus PPI? Replaced and will repeat level in a.m. If low will need twice daily supplementation (11) DVT prophylaxis: Heparin drip with transition to apixaban Code status not clarified on admission. will discuss with patient. Dispo-cont telemetry overnight. Sabiha Degroot DO [facility] Hospitalist Subjective 78-year-old female with sudden shortness of breath for 1 day at oncology office. She denied any palpitations or chest pain. She denies any recent infectious symptoms including no UTI symptoms, cough or cold symptoms recently. Her last infusion of chemotherapy was on 04/01 per her report and she does get occasional chills because of chemo, however this was the last dose. She is scheduled for an upcoming surgery for her adenocarcinoma of the lung with Dr. Stern on 04 May. She is otherwise feeling well today, is tolerating p.o. and is mentating at baseline. Physical Exam 2 Vital Signs (Past 24 Hours): Last Vital Signs Temp 36.6 C 04/29/18 15:56 Pulse 92 H 04/29/18 15:56 Resp 20 04/29/18 15:56 BP 94/61 L 04/29/18 15:56 Pulse Ox 92 04/29/18 15:56 CONSTITUTIONAL: WNWD, vitals as above, generally well-appearing EYES: normal conjuctivae, no scleral icterus RESPIRATORY: clear to auscultation bilaterally, no crackles, rales or wheezes, normal respiratory effort CARDIOVASCULAR: irregular rate and rhythm, S1 and 2 heard without murmurs, gallops or rubs, no JVD, no peripheral edema GASTROINTESTINAL: normal bowel sounds, soft, nontender, nondistended MUSCULOSKELETAL: strength 5/5 throughout, head is normocephalic and atraumatic SKIN: warm and dry NEUROLOGIC: CN 2-12 grossly intact PSYCHIATRIC: alert cooperative and oriented to person, place and time. Results & Data Laboratory Results Short CBC 04/29/18 Range/Units 05:56 WBC 7.04 (4.8-10.8) K/uL Hgb 8.0 L (12.0-16.0) g/dL Hct 24.4 L (37-47) % Plt Count 175 (130-400) K/uL BMP 04/29/18 05:56 Sodium 141 Potassium 3.8 Chloride 112 H Carbon Dioxide 20 L BUN 24 H Creatinine 1.49 H Glucose 119 H Calcium 6.7 L Urine 04/28/18 Range/Units 20:45 Urine Color Yellow Urine Appearance Cloudy H (Clear) Urine pH 6.0 (4.5-7.5) Ur Specific [place] 1.020 (1.000-1.030) Urine Protein 1+ H (Negative) Urine Glucose (UA) Negative (Negative) Medications Administered Current Inpatient Medications Acetaminophen (Tylenol) 650 mg PO Q4H PRN PRN Reason: Pain or Fever Stop: 05/28/18 20:47 Hydrocodone Bitart/Acetaminophen ([place] 5/325) 1 tab PO Q6H PRN PRN Reason: Pain Stop: 05/12/18 20:47 Albuterol (Ventolin Hfa) 1 puffs INH Q6H PRN PRN Reason: Shortness Of Breath Stop: 05/28/18 20:47 Amlodipine Besylate (Norvasc) 5 mg PO QAM [facility] Stop: 05/29/18 08:59 Last Admin: 04/29/18 08:30 Dose: 5 mg Apixaban (Eliquis) 2.5 mg PO BID [facility] Stop: 05/29/18 20:59 Aspirin (Ecotrin) 81 mg PO QAM [facility] Stop: 05/29/18 09:44 Last Admin: 04/29/18 11:23 Dose: 81 mg Budesonide/Formoterol Fumarate (Symbicort 160mcg/4.5mcg) 2 puffs INH BID [facility] Stop: 05/28/18 20:59 Last Admin: 04/29/18 08:31 Dose: 2 puffs Dextrose (Dextrose 50%) 25 - 50 ml IV UD PRN; Protocol PRN Reason: Hypoglycemia Protocol Stop: 05/28/18 20:47 Diltiazem HCl (Cardizem Cd) 120 mg PO QAM [facility] Stop: 05/29/18 10:14 Last Admin: 04/29/18 11:23 Dose: 120 mg Diphenhydramine HCl (Benadryl) 25 mg PO HS PRN PRN Reason: Sleep Stop: 05/28/18 20:47 Folic Acid (Folvite) 1 mg PO DAILY [facility] Stop: 05/29/18 08:59 Last Admin: 04/29/18 08:31 Dose: 1 mg Glucagon (Glucagen) 1 mg SQ UD PRN; Protocol PRN Reason: Hypoglycemia Protocol Stop: 05/28/18 20:47 Glucose (Glucose 40%) 15 - 30 gm PO UD PRN; Protocol PRN Reason: Hypoglycemia Protocol Stop: 05/28/18 20:47 Glucose (Dex4 Glucose) 4 - 8 tabs PO UD PRN; Protocol PRN Reason: Hypoglycemia Protocol Stop: 05/28/18 20:47 Diltiazem HCl 125 mg/ Dextrose 125 mls @ 0 mls/hr IV .Q0M PRN; Protocol PRN Reason: Titration Stop: 05/28/18 20:47 Last Titration: 04/29/18 12:46 Dose: Infused Insulin Aspart (Novolog Flexpen) 0 units SC ACHS ST[facility]AN Stop: 05/29/18 07:29 Last Admin: 04/29/18 18:19 Dose: 1 units Lorazepam (Ativan) 0.5 mg PO HS PRN PRN Reason: Anxiety Stop: 05/28/18 20:47 Metoprolol Tartrate (Lopressor) 100 mg PO BID [facility] Stop: 05/28/18 20:59 Last Admin: 04/29/18 08:30 Dose: 100 mg Miscellaneous (Carbohydrates For Hypoglycemia) 15 - 30 gm PO UD PRN PRN Reason: Hypoglycemia Treatment Stop: 05/28/18 20:47 Miscellaneous Information (Consult Glycemic Management Pharmacy) 1 ea N/A UD PRN; Protocol PRN Reason: Consult Stop: 05/28/18 22:56 Morphine Sulfate (Morphine Sulfate) 2 mg IV Q30M PRN PRN Reason: Chest Pain Stop: 05/12/18 20:47 Nitroglycerin (Nitrostat) 0.4 mg SL UD PRN PRN Reason: Chest Pain Stop: 05/28/18 20:47 Ondansetron HCl (Zofran) 4 mg IV Q6H PRN PRN Reason: Nausea Stop: 05/28/18 20:47 Pantoprazole Sodium (Protonix) 40 mg PO DAILY [facility] Stop: 05/29/18 08:59 Last Admin: 04/29/18 08:30 Dose: 40 mg Polyethylene Glycol (Miralax Powder Packet) 17 gm PO DAILY PRN PRN Reason: Constipation Stop: 05/28/18 20:47 Prochlorperazine (Compazine) 10 mg PO Q6 PRN PRN Reason: Nausea Stop: 05/28/18 20:47 Tiotropium [place] (Spiriva) 1 puffs INH DAILY [facility] Stop: 05/29/18 08:59 Last Admin: 04/29/18 08:31 Dose: 1 puffs _ (1) Anemia Anemia type: unspecified type Bone marrow failure anemia type: Chronic kidney disease stage: Folate deficiency anemia type: Hemolytic anemia type: Iron deficiency anemia type: Other causes of anemia: Vitamin B12 deficiency anemia type: Qualified Code(s): D64.9 - Anemia, unspecified (2) A-fib Atrial fibrillation type: unspecified Qualified Code(s): I48.91 - Unspecified atrial fibrillation
[2018-04-29] MEDS: APIXABAN 2.5 MG TAB PO SCH (20:56)
[2018-04-30 07:18] LABS: Hematocrit (blood only) 25.9 % (37-47); Hemoglobin 8.4 g/dL (12.0-16.0); Mean Corpuscular Hgb Conc 32.4 g/dL (32-36); Mean Platelet Volume 9.8 fL (7.4-10.4); Platelet Count 194 K/uL (130-400); RDW Coefficient of Variation 17.1 % (11.5-14.5); RDW Standard Deviation 62.6 fL (36.4-46.3); Red Blood Count 2.49 M/uL (4.2-5.4); White Blood Count 6.48 K/uL (4.8-10.8)
[2018-04-30 07:25] LABS: Partial Thromboplastin Ratio 1.1; Partial Thromboplastin Time 29.4 Seconds (21.0-31.0)
[2018-04-30 07:46] LABS: BUN Creatinine Ratio 13.2 (10-20); Calcium 7.6 mg/dl (8.5-10.1); Creatinine Clr Calc Pharmacy 21.9 ml/min; Est GFR (African American) 34.6; Est GFR (Non-African American) 29.9; Magnesium 2.6 mg/dl (1.8-2.4); Potassium 3.9 mmol/L (3.5-5.1)
[2018-04-30] MEDS: INSULIN ASPART 100 UNITS/ML 3 ML PEN SC SCH ×4 (08:24→20:45)
[2018-04-30] MEDS: APIXABAN 2.5 MG TAB PO SCH ×2 (08:24→20:43)
[2018-04-30] MEDS: ASPIRIN 81 MG ECTAB PO SCH (08:25)
[2018-04-30] MEDS: AMLODIPINE BESYLATE 5 MG TAB PO SCH (08:25)
[2018-04-30] MEDS: PANTOprazole 40 MG TAB PO SCH (08:25)
[2018-04-30] MEDS: dilTIAZem HCL 120 MG CAPCR PO SCH (08:26)
[2018-04-30] MEDS: METOPROLOL TARTRATE 100 MG TAB PO SCH ×2 (08:26→20:44)
[2018-04-30] MEDS: FOLIC ACID 1 MG TAB PO SCH (08:27)
[2018-04-30] MEDS: TIOTROPIUM BROMIDE 5 PUFF/90 MCG INH INH SCH (08:27)
[2018-04-30] MEDS: BUDESONIDE/FORMOTEROL FUMARATE 160/4.5 60 PUFFS/INHALER INH SCH ×2 (08:27→20:46)
--- NOTE | 2018-04-30 09:40 | Consultation Report ---
DATE OF CONSULTATION: 04/29/2018 INPATIENT CARDIOLOGY CONSULTATION CONSULTATION REQUESTED BY: Dr. Garcia. REASON FOR CONSULTATION: New-onset atrial fibrillation with rapid ventricular response. HISTORY OF PRESENT ILLNESS: Mrs. Corona is a very pleasant 78-year-old woman who normally follows with myself as an outpatient for history of coronary artery disease. She presented to [facility] from her primary care physician's office on the with reports of being incidentally found to be in atrial fibrillation. The patient was at her regularly scheduled hematology/oncology appointment for chemo infusion on the when a nurse told her that she has not had her heart checked in a while and that she was due for an EKG. An EKG was performed that showed her to be in atrial fibrillation with rapid ventricular response. She was then sent over to her primary care physician's office and then to [facility] Emergency Department. In the ER, she was appropriately placed on heparin and Cardizem drips and admitted to the telemetry unit. Clinically, the patient states she feels fine and she had no idea she was in atrial fibrillation. She denies experiencing any cardiac complaints, specifically any chest pain, shortness of breath, palpitations, lightheadedness, dizziness, or syncope. She states the only thing out of the ordinary is food tastes differently now that she is on chemo. Otherwise, she is doing well. Of note, she is scheduled for lung resection with Dr. Hickman on the . PAST SURGICAL HISTORY: 1. PCI and Rotablator to the RCA in 1992. 2. Tonsillectomy. 3. Appendectomy. 4. Total abdominal hysterectomy. 5. Arthroscopic knee surgery. 6. Carpal tunnel surgery. 7. Multiple colonoscopies. MEDICAL ILLNESSES: 1. Coronary artery disease. 2. Diabetes. 3. Adenocarcinoma of the lung. 4. Mild COPD. 5. Hypertension. 6. Diabetes. 7. History of anxiety. 8. Pulmonary hypertension. FAMILY HISTORY: Noncontributory. SOCIAL HISTORY: Very remote tobacco use history. Denies any alcohol or recreational drug use. She lives at home and takes care of her son who is disabled. REVIEW OF SYSTEMS: As per HPI, all other review of systems reviewed and negative at this time. ALLERGIES: 1. LISINOPRIL. 2. AMBIEN. MEDICATIONS AN OUTPATIENT: 1. Aspirin 81 mg daily. 2. Amlodipine 5 mg daily. 3. Metoprolol tartrate 100 mg b.i.d. 4. Losartan 100 mg daily. 5. Ativan p.r.n. 6. Percocet p.r.n. 7. Protonix daily. PHYSICAL EXAMINATION: VITALS: Temperature 37.2, pulse 89, respiratory rate 12, blood pressure 120/70. GENERAL: Awake, alert, oriented x3 in no acute distress. HEENT: Normocephalic, atraumatic. Pupils equal, round, react to light and accommodation. Extraocular muscles intact. Anicteric sclerae. Moist mucous membranes. NECK: No JVD, no bruit. CARDIOVASCULAR: Irregularly irregular, unable to appreciate any murmurs, rubs or gallops. PULMONARY: Clear to auscultation bilaterally. No rales, rhonchi, or wheezing. ABDOMEN: Bowel sounds x4, soft. No rebound, guarding, tenderness. No organomegaly. EXTREMITIES: No clubbing, cyanosis or edema. +2 pedal pulses bilaterally. SKIN: Warm and dry. TEST RESULTS: A 12-lead EKG performed in the Emergency Department shows atrial fibrillation with rapid ventricular response. Review of telemetry monitoring shows atrial fibrillation, now rate controlled. LABORATORY STUDIES OF SIGNIFICANCE: White count of 7, hemoglobin of 8, platelet count of 175. Sodium 141, potassium 3.8, BUN 24, creatinine 1.5. IMPRESSION: 1. Atrial fibrillation incidentally discovered, asymptomatic, with a CHADS score of 3. 2. Acute renal failure, likely volume depletion. 3. Remote history of coronary artery disease, stable. 4. Adenocarcinoma of the lung for scheduled resection on the . RECOMMENDATIONS: It was my pleasure to see Mrs. Corona in consultation today. The pathophysiology and treatment options for atrial fibrillation were discussed with the patient and her older son at great length. They are counseled at this point. Given the upcoming surgery, I believe the most prudent course of action is for rate control at this point. So her Cardizem drip will be titrated off and she will be started on Cardizem CD p.o. She is already on metoprolol, but given the proximity to her surgery, we will hold off on making dosing changes of the metoprolol. Otherwise, after a lengthy discussion about anticoagulants, the patient would prefer Eliquis, so that will be started today and after looking at her renal function, I will give the lower dose 2.5 mg for now. That can then be held 2 days prior to the surgery and then restarted once postoperative bleeding risk is acceptable by surgery and the patient will need a low molecular weight heparin bridge given her CHADS score. Otherwise, it will be okay to discharge the patient to home from a cardiac standpoint once her rates are controlled and she receives some IV fluid for improvement of her renal function. A 2D echocardiogram will also be performed today.
[2018-04-30] MEDS: SODIUM CHLORIDE 0.9% 1000ML 1,000 ML IV SCH ×2 (10:43→20:50)
[2018-04-30] MEDS ORDERED: dilTIAZem HCL 120 MG CAPCR PO ONE (11:00)
--- NOTE | 2018-04-30 11:29 | Hospitalist Progress Note ---
Date of Service April 30, 2018 Assessment & Plan (1) Nausea: Just began after lunch today. Uncertain if 2/2 meds, underlying medical condition (ROSEMARY), or something she ate. Cont supportive care. (2) A-fib: Cont Dilt PO, home Metoprolol, and new Eliquis per Cardiology. Nausea today poss 2/2 diltiazem? (3) ROSEMARY (acute kidney injury): Possibly secondary to dehydration. Urine studies ordered to help with etiology. IVF were started. Repeat BMP in am. (4) Adenocarcinoma, lung: The patient was recently diagnosed in November 2017 and has been on chemotherapy with last dose on 04/01. She is scheduled to have surgery with Dr. Hickman on 05/04. Cleared to proceed without further cardiac workup. (5) Anemia: Macrocytic anemia noted on labs. Large drop in H&H in the last 6 months from to 8.8/27. She began chemotherapy in November 2017, and malignancy with chemotherapy is likely the cause of this anemia. There is no active bleeding at this time. In setting of h/o CAD, Cardio recommends keeping H/H above 8/25. May drop slightly with IVF today and might need some blood in am. Trend CBC in am. (6) Diabetes mellitus, type II: At goal, cont current therapy. (7) HTN (hypertension): She takes amlodipine 5 mg p.o. every morning, metoprolol 100 p.o. twice daily as an outpatient. She is now on p.o. diltiazem for additional rate control. Cards did not adjust BB in setting of upcoming procedure next week (8) COPD (chronic obstructive pulmonary disease): Stable, no evidence of exacerbation. (9) Anxiety: PRN Lorazepam (10) CAD (coronary artery disease): She has a history of coronary artery disease status post PCI and Rotablator to the RCA in 1992 with residual nonobstructive disease of the LAD. She is medically managed with atorvastatin, aspirin, losartan and metoprolol. (11) Hypomagnesemia: repleted. (12) DVT prophylaxis: Apixaban Code status -Full as discussed with patient today Dispo-cont telemetry Sabiha Degroot DO [facility] Hospitalist Subjective 78-year-old female with sudden shortness of breath for 1 day at oncology office. She denied any palpitations or chest pain. She denies any recent infectious symptoms including no UTI symptoms, cough or cold symptoms recently. Her last infusion of chemotherapy was on 04/01 per her report and she does get occasional chills because of chemo, however this was the last dose. She is scheduled for an upcoming surgery for her adenocarcinoma of the lung with Dr. Stern on 04 May. Nausea present today which began around lunchtime. ROS is otherwise negative Physical Exam 2 Vital Signs (Past 24 Hours): Last Vital Signs Temp 36.9 C 04/30/18 07:04 Pulse 108 H 04/30/18 07:04 Resp 17 04/30/18 07:04 BP 114/60 04/30/18 07:04 Pulse Ox 93 04/30/18 07:04 CONSTITUTIONAL: WNWD, vitals as above, generally well-appearing EYES: normal conjuctivae, no scleral icterus RESPIRATORY: clear to auscultation bilaterally, no crackles, rales or wheezes, normal respiratory effort CARDIOVASCULAR: irregular rate and rhythm, S1 and 2 heard without murmurs, gallops or rubs, no JVD, no peripheral edema GASTROINTESTINAL: normal bowel sounds, soft, nontender, nondistended MUSCULOSKELETAL: strength 5/5 throughout, head is normocephalic and atraumatic SKIN: warm and dry NEUROLOGIC: CN 2-12 grossly intact PSYCHIATRIC: alert cooperative and oriented to person, place and time. Results & Data Laboratory Results Short CBC 04/28/18 04/28/18 04/28/18 Range/Units 16:34 17:57 20:45 WBC (4.8-10.8) K/uL Hgb (12.0-16.0) g/dL Hct (37-47) % Plt Count (130-400) K/uL PT (9.0-12.0) Seconds INR (0.9-1.1) APTT (21.0-31.0) Seconds PTT Ratio Sodium 140 (136-145) mmol/L Potassium 4.4 (3.5-5.1) mmol/L Chloride 110 H (98-107) mmol/L Carbon Dioxide 19 L (21-32) mmol/L Anion Gap 11.0 (3-11) BUN 25 H (7-18) mg/dl Creatinine 1.55 H (0.6-1.2) mg/dl Est Cr Clr Drug Dosing 22.7 ml/min Est GFR ( Amer) 36.5 Est GFR (Non-Af Amer) 31.5 BUN/Creatinine Ratio 16.0 (10-20) Glucose 113 H (70-99) mg/dl POC Glucose (70-99) Calcium 7.3 L (8.5-10.1) mg/dl Magnesium 1.4 L (1.8-2.4) mg/dl Total Bilirubin 0.5 (0.2-1) mg/dl AST 53 H (15-37) U/L ALT 18 (12-78) U/L Alkaline Phosphatase 113 (45-117) U/L Troponin I < 0.015 (0-0.045) ng/ml Total Protein 7.1 (6.4-8.2) gm/dl Albumin 2.6 L (3.4-5.0) gm/dl Globulin 4.5 H (2.5-4.0) gm/dl Albumin/Globulin Ratio 0.6 L (0.9-2) TSH 1.050 (0.300-4.500) uIu/ml Specimen Hemolysis Urine Color Yellow Urine Appearance Cloudy H (Clear) Urine pH 6.0 (4.5-7.5) Ur Specific Valders 1.020 (1.000-1.030) Urine Protein 1+ H (Negative) Urine Glucose (UA) Negative (Negative) Urine Ketones Negative (Negative) Urine Blood 1+ H (Negative) Urine Nitrite Negative (Negative) Urine Bilirubin Negative (Negative) Urine Urobilinogen Negative (Negative) Ur Leukocyte Esterase 3+ H (Negative) Urine RBC 0-4 (0-4) /hpf Urine WBC >30 H (0-5) /hpf Ur Epithelial Cells >30 H (0-5) /lpf Urine Bacteria 1+ H (Negative) 04/28/18 04/28/18 04/28/18 Range/Units 21:40 21:46 22:50 WBC (4.8-10.8) K/uL Hgb (12.0-16.0) g/dL Hct (37-47) % Plt Count (130-400) K/uL PT 12.0 (9.0-12.0) Seconds INR 1.2 H (0.9-1.1) APTT 27.8 (21.0-31.0) Seconds PTT Ratio 1.1 Sodium (136-145) mmol/L Potassium (3.5-5.1) mmol/L Chloride (98-107) mmol/L Carbon Dioxide (21-32) mmol/L Anion Gap (3-11) BUN (7-18) mg/dl Creatinine (0.6-1.2) mg/dl Est Cr Clr Drug Dosing ml/min Est GFR ( Amer) Est GFR (Non-Af Amer) BUN/Creatinine Ratio (10-20) Glucose (70-99) mg/dl POC Glucose 111 H (70-99) Calcium (8.5-10.1) mg/dl Magnesium (1.8-2.4) mg/dl Total Bilirubin (0.2-1) mg/dl AST (15-37) U/L ALT (12-78) U/L Alkaline Phosphatase (45-117) U/L Troponin I (0-0.045) ng/ml Total Protein (6.4-8.2) gm/dl Albumin (3.4-5.0) gm/dl Globulin (2.5-4.0) gm/dl Albumin/Globulin Ratio (0.9-2) TSH 1.200 (0.300-4.500) uIu/ml Specimen Hemolysis Urine Color Urine Appearance (Clear) Urine pH (4.5-7.5) Ur Specific Valders (1.000-1.030) Urine Protein (Negative) Urine Glucose (UA) (Negative) Urine Ketones (Negative) Urine Blood (Negative) Urine Nitrite (Negative) Urine Bilirubin (Negative) Urine Urobilinogen (Negative) Ur Leukocyte Esterase (Negative) Urine RBC (0-4) /hpf Urine WBC (0-5) /hpf Ur Epithelial Cells (0-5) /lpf Urine Bacteria (Negative) 04/29/18 04/29/18 04/29/18 Range/Units 05:56 05:56 05:56 WBC (4.8-10.8) K/uL Hgb (12.0-16.0) g/dL Hct (37-47) % Plt Count (130-400) K/uL PT 12.5 H (9.0-12.0) Seconds INR 1.3 H (0.9-1.1) APTT 50.8 H* (21.0-31.0) Seconds PTT Ratio 2.0 Sodium 141 (136-145) mmol/L Potassium 3.8 (3.5-5.1) mmol/L Chloride 112 H (98-107) mmol/L Carbon Dioxide 20 L (21-32) mmol/L Anion Gap 9.0 (3-11) BUN 24 H (7-18) mg/dl Creatinine 1.49 H (0.6-1.2) mg/dl Est Cr Clr Drug Dosing 23.8 ml/min Est GFR ( Amer) 38.3 Est GFR (Non-Af Amer) 33.1 BUN/Creatinine Ratio 16.2 (10-20) Glucose 119 H (70-99) mg/dl POC Glucose (70-99) Calcium 6.7 L (8.5-10.1) mg/dl Magnesium 1.3 L (1.8-2.4) mg/dl Total Bilirubin (0.2-1) mg/dl AST (15-37) U/L ALT (12-78) U/L Alkaline Phosphatase (45-117) U/L Troponin I (0-0.045) ng/ml Total Protein (6.4-8.2) gm/dl Albumin (3.4-5.0) gm/dl Globulin (2.5-4.0) gm/dl Albumin/Globulin Ratio (0.9-2) TSH (0.300-4.500) uIu/ml Specimen Hemolysis Urine Color Urine Appearance (Clear) Urine pH (4.5-7.5) Ur Specific Valders (1.000-1.030) Urine Protein (Negative) Urine Glucose (UA) (Negative) Urine Ketones (Negative) Urine Blood (Negative) Urine Nitrite (Negative) Urine Bilirubin (Negative) Urine Urobilinogen (Negative) Ur Leukocyte Esterase (Negative) Urine RBC (0-4) /hpf Urine WBC (0-5) /hpf Ur Epithelial Cells (0-5) /lpf Urine Bacteria (Negative) 04/30/18 04/30/18 04/30/18 Range/Units 06:25 06:25 06:25 WBC 6.48 (4.8-10.8) K/uL Hgb 8.4 L (12.0-16.0) g/dL Hct 25.9 L (37-47) % Plt Count 194 (130-400) K/uL PT (9.0-12.0) Seconds INR (0.9-1.1) APTT 29.4 (21.0-31.0) Seconds PTT Ratio 1.1 Sodium (136-145) mmol/L Potassium (3.5-5.1) mmol/L Chloride (98-107) mmol/L Carbon Dioxide (21-32) mmol/L Anion Gap (3-11) BUN (7-18) mg/dl Creatinine (0.6-1.2) mg/dl Est Cr Clr Drug Dosing ml/min Est GFR ( Amer) Est GFR (Non-Af Amer) BUN/Creatinine Ratio (10-20) Glucose (70-99) mg/dl POC Glucose (70-99) Calcium (8.5-10.1) mg/dl Magnesium 2.6 H (1.8-2.4) mg/dl Total Bilirubin (0.2-1) mg/dl AST (15-37) U/L ALT (12-78) U/L Alkaline Phosphatase (45-117) U/L Troponin I (0-0.045) ng/ml Total Protein (6.4-8.2) gm/dl Albumin (3.4-5.0) gm/dl Globulin (2.5-4.0) gm/dl Albumin/Globulin Ratio (0.9-2) TSH (0.300-4.500) uIu/ml Specimen Hemolysis Urine Color Urine Appearance (Clear) Urine pH (4.5-7.5) Ur Specific Valders (1.000-1.030) Urine Protein (Negative) Urine Glucose (UA) (Negative) Urine Ketones (Negative) Urine Blood (Negative) Urine Nitrite (Negative) Urine Bilirubin (Negative) Urine Urobilinogen (Negative) Ur Leukocyte Esterase (Negative) Urine RBC (0-4) /hpf Urine WBC (0-5) /hpf Ur Epithelial Cells (0-5) /lpf Urine Bacteria (Negative) BMP 04/30/18 06:25 Sodium 137 Potassium 3.9 Chloride 109 H Carbon Dioxide 21 BUN 21 H Creatinine 1.62 H Glucose 113 H Calcium 7.6 L Medications Administered Current Inpatient Medications Acetaminophen (Tylenol) 650 mg PO Q4H PRN PRN Reason: Pain or Fever Stop: 05/28/18 20:47 Hydrocodone Bitart/Acetaminophen ([place] 5/325) 1 tab PO Q6H PRN PRN Reason: Pain Stop: 05/12/18 20:47 Albuterol (Ventolin Hfa) 1 puffs INH Q6H PRN PRN Reason: Shortness Of Breath Stop: 05/28/18 20:47 Amoxicillin (Amoxil) 1,000 mg PO BID STEFAN Stop: 05/05/18 11:29 Apixaban (Eliquis) 2.5 mg PO BID STEFAN Stop: 05/29/18 20:59 Last Admin: 04/30/18 08:24 Dose: 2.5 mg Aspirin (Ecotrin) 81 mg PO QAM STEFAN Stop: 05/29/18 09:44 Last Admin: 04/30/18 08:25 Dose: 81 mg Budesonide/Formoterol Fumarate (Symbicort 160mcg/4.5mcg) 2 puffs INH BID STEFAN Stop: 05/28/18 20:59 Last Admin: 04/30/18 08:27 Dose: 2 puffs Dextrose (Dextrose 50%) 25 - 50 ml IV UD PRN; Protocol PRN Reason: Hypoglycemia Protocol Stop: 05/28/18 20:47 Diltiazem HCl (Cardizem Cd) 240 mg PO QAM STEFAN Stop: 05/31/18 08:59 Diphenhydramine HCl (Benadryl) 25 mg PO HS PRN PRN Reason: Sleep Stop: 05/28/18 20:47 Folic Acid (Folvite) 1 mg PO DAILY STEFAN Stop: 05/29/18 08:59 Last Admin: 04/30/18 08:27 Dose: 1 mg Glucagon (Glucagen) 1 mg SQ UD PRN; Protocol PRN Reason: Hypoglycemia Protocol Stop: 05/28/18 20:47 Glucose (Glucose 40%) 15 - 30 gm PO UD PRN; Protocol PRN Reason: Hypoglycemia Protocol Stop: 05/28/18 20:47 Glucose (Dex4 Glucose) 4 - 8 tabs PO UD PRN; Protocol PRN Reason: Hypoglycemia Protocol Stop: 05/28/18 20:47 Sodium Chloride (Nss 1000ml) 1,000 mls @ 100 mls/hr IV .Q10H STEFAN Stop: 05/30/18 10:44 Last Admin: 04/30/18 10:43 Dose: 100 mls/hr Insulin Aspart (Novolog Flexpen) 0 units SC ACHS [facility] Stop: 05/29/18 07:29 Last Admin: 04/30/18 08:24 Dose: Not Given Lorazepam (Ativan) 0.5 mg PO HS PRN PRN Reason: Anxiety Stop: 05/28/18 20:47 Metoprolol Tartrate (Lopressor) 100 mg PO BID [facility] Stop: 05/28/18 20:59 Last Admin: 04/30/18 08:26 Dose: 100 mg Miscellaneous (Carbohydrates For Hypoglycemia) 15 - 30 gm PO UD PRN PRN Reason: Hypoglycemia Treatment Stop: 05/28/18 20:47 Miscellaneous Information (Consult Glycemic Management Pharmacy) 1 ea N/A UD PRN; Protocol PRN Reason: Consult Stop: 05/28/18 22:56 Morphine Sulfate (Morphine Sulfate) 2 mg IV Q30M PRN PRN Reason: Chest Pain Stop: 05/12/18 20:47 Nitroglycerin (Nitrostat) 0.4 mg SL UD PRN PRN Reason: Chest Pain Stop: 05/28/18 20:47 Ondansetron HCl (Zofran) 4 mg IV Q6H PRN PRN Reason: Nausea Stop: 05/28/18 20:47 Pantoprazole Sodium (Protonix) 40 mg PO DAILY [facility] Stop: 05/29/18 08:59 Last Admin: 04/30/18 08:25 Dose: 40 mg Polyethylene Glycol (Miralax Powder Packet) 17 gm PO DAILY PRN PRN Reason: Constipation Stop: 05/28/18 20:47 Prochlorperazine (Compazine) 10 mg PO Q6 PRN PRN Reason: Nausea Stop: 05/28/18 20:47 Tiotropium [place] (Spiriva) 1 puffs INH DAILY [facility] Stop: 05/29/18 08:59 Last Admin: 04/30/18 08:27 Dose: 1 puffs _ (1) Anemia Anemia type: unspecified type Bone marrow failure anemia type: Chronic kidney disease stage: Folate deficiency anemia type: Hemolytic anemia type: Iron deficiency anemia type: Other causes of anemia: Vitamin B12 deficiency anemia type: Qualified Code(s): D64.9 - Anemia, unspecified (2) A-fib Atrial fibrillation type: unspecified Qualified Code(s): I48.91 - Unspecified atrial fibrillation
--- NOTE | 2018-04-30 11:36 | Cardiology Progress Note ---
Date of Service April 30, 2018 Assessment & Plan (1) A-fib: remains asymptomatic rates increased today, will increase cardizem cd to 240mg daily cont Eliquis, renal dosing will require a bridge for any invasive procedures (2) ROSEMARY (acute kidney injury): likely volume depletion will give a 1L challenge today and follow (3) Anemia: likely secondary to chemo no sign of active bleeding would transfuse if Hgb drops below 8 will need to follow closely with hydration (4) Adenocarcinoma, lung: originally scheduled for surgery on 05/04 no cardiac contraindication at this point would cont with medical optimization and if renal function and anemia are stabilized would proceed pt counseled that I would place her at a moderate risk for adverse perioperative cardiovascular event with risk approx <5% further counseled that no further testing or intervention would further lower that risk patient states that she understands and is accepting or risk Subjective Pt seen and examined, states that she feels well. Continues to deny cp, sob, palpitations, lightheadedness or dizziness. Tele reviewed: afib with elevated rates this AM and overnight. Physical Exam 2 Vital Signs (Past 24 Hours): Last Vital Signs Temp 36.9 C 04/30/18 07:04 Pulse 108 H 04/30/18 07:04 Resp 17 04/30/18 07:04 BP 114/60 04/30/18 07:04 Pulse Ox 93 04/30/18 07:04 Physical Exam: General: Awake, alert and oriented x 3. No acute distress. HEENT: Normocephalic, atraumatic. Pupils equal, round and reactive to light and accommodation. Extraocular muscles are intact. Anicteric sclera. Moist mucous membranes. Neck: No JVD. No bruit. Cardiovascular: regularly irregular, unable to appreciate murmur, rub or gallop. Pulmonary: Clear to auscultation bilaterally. No rales, rhonchi, or wheezing. Abdomen: Bowel sounds x 4, soft. No rebound, guarding or tenderness. No organomegaly. Extremities: No clubbing, cyanosis or edema. +2 pedal pulses bilaterally. Skin: Warm and dry. _ (1) A-fib Atrial fibrillation type: unspecified Qualified Code(s): I48.91 - Unspecified atrial fibrillation (2) Anemia Anemia type: unspecified type Bone marrow failure anemia type: Chronic kidney disease stage: Folate deficiency anemia type: Hemolytic anemia type: Iron deficiency anemia type: Other causes of anemia: Vitamin B12 deficiency anemia type: Qualified Code(s): D64.9 - Anemia, unspecified
--- NOTE | 2018-04-30 11:41 | Consultation Report ---
DATE OF CONSULTATION: 04/30/2018 REASON FOR CONSULTATION: Followup for lung cancer. HISTORY OF PRESENT ILLNESS: Noni Corona is a delightful 78-year-old female who I met back in October. She had been admitted to the hospital with probable gastroesophageal reflux disease and had a CT scan of her chest and was found to have a mass in her right upper lobe. She underwent a general workup and was found to have an adenocarcinoma of the lung. She also had microscopic involvement of her nonenlarged lymph nodes. The patient presented to my office about a week ago and I tentatively set her up for surgery, however, she had finished her chemotherapy and radiation. She also had what sounded like a gastroenteritis or colitis with which she was having multiple bouts of diarrhea, but this improved. She actually looked quite good for a 78-year-old undergoing chemotherapy and radiation. In any event, she eventually settled down and presented to her oncologist, Dr. Benjy Shaffer, and she was found to be in atrial fibrillation. She is referred to her primary care physician and then referred to the Emergency Room and she was admitted with atrial fibrillation. She has tolerated that quite well. She is really not having much in the way of any symptoms or signs of hemodynamic compromise from this atrial fibrillation. Her rate has been fairly well controlled with medications. I was asked to see her because she was tentatively scheduled for a robot-assisted thoracoscopic right upper lobectomy or segmentectomy with mediastinal lymphadenectomy after mediastinoscopy on 05/04/2018; however, she was found to have acute renal failure with a creatinine over 4. For this reason, she was canceled and I have been asked to see her today after her admission. PAST MEDICAL HISTORY: 1. Adenocarcinoma, right upper lobe. 2. New-onset atrial fibrillation. 3. Cervical radiculopathy at C7. 4. Hypertension. 5. Hyperlipidemia. 6. Carpal tunnel disease, left wrist. 7. Coronary artery disease. 8. History of myocardial infarction in the past. PAST SURGICAL HISTORY: 1. Endobronchial ultrasound and navigational bronchoscopy. 2. Appendectomy. 3. section. 4. Hysterectomy. MEDICATIONS: Please see chart. ALLERGIES: 1. AMBIEN. 2. LISINOPRIL. SOCIAL HISTORY: The patient is a former smoker. She is , lives alone. She is independent in her activities of daily living. Her family is supportive. FAMILY MEDICAL HISTORY: She did have a grandfather who had cancer of the colon. Her mother from coronary artery disease and her father from emphysema, was a heavy smoker. REVIEW OF SYSTEMS: The patient actually looks better to me than she did when she was in the office just about a week ago. Her weight has been stable. States her appetite is fine. She has had no skin breakdown. She has had no changes in her visual or auditory systems. She denies nausea, vomiting, diarrhea, hematemesis, or hematochezia. She has had no increased cough. She has no hemoptysis. She does have mild dyspnea on exertion. She denies any neurologic events. PHYSICAL EXAMINATION: GENERAL: This is a small woman who stands 4 feet 10 inches tall and weighs approximately 134 pounds. She is awake and alert. HEENT: Her extraocular movements are intact. Her pupils are equally round and reactive. Her sclerae are anicteric. She has no nasolabial flattening. Her tongue is midline. She has no oral mucosal lesions. NECK: Supple. She has no supraclavicular or cervical lymphadenopathy, neck vein distention, or thyromegaly. I detect no carotid bruits. LUNGS: Clear. She has no wheezing and no rales. HEART: She has an irregular irregular rhythm in the 80s with a systolic ejection murmur. She has no rub. ABDOMEN: A bit protuberant, soft, nontender. She has no evidence of ascites or hepatosplenomegaly. EXTREMITIES: She has no peripheral edema. She has excellent peripheral pulses. NEUROLOGIC: She is completely intact. ASSESSMENT: 1. Stage IIIA adenocarcinoma, right upper lobe. 2. Acute onset atrial fibrillation. 3. Status post colitis. 4. Status post neoadjuvant chemotherapy and radiation. PLAN: We have canceled this patient's surgery and tentatively rescheduled her for the end of the month. However, I am going to bring her back in the office to reevaluate her prior to making a final decision on surgery. Her FEV1 is 65% of predicted. Her DLCO was 50% of predicted. It may be that we offer her a segmentectomy, which she would tolerate much better. We will discuss this further in the office. It is my understanding that the patient is going to be discharged home on Eliquis. I will schedule her for a followup appointment.
[2018-04-30] MEDS: AMOXICILLIN 500 MG CAP PO SCH ×2 (12:15→20:44)
[2018-04-30 13:23] LABS: Creatinine Urine Random 71.4 mg/dl
[2018-04-30] MEDS: ONDANSETRON INJ 2 MG/ML 2 ML VIAL IV PRN (14:44)
[2018-05-01] MEDS: HYDROCODONE/ACETAMOPHEN 5/325MG TAB PO PRN (04:14)
[2018-05-01 06:16] LABS: Partial Thromboplastin Ratio 1.2; Partial Thromboplastin Time 30.4 Seconds (21.0-31.0)
[2018-05-01 06:34] LABS: BUN Creatinine Ratio 12.3 (10-20); Calcium 6.9 mg/dl (8.5-10.1); Creatinine Clr Calc Pharmacy 18.6 ml/min; Est GFR (African American) 28.4; Est GFR (Non-African American) 24.5; Potassium 4.2 mmol/L (3.5-5.1)
[2018-05-01] MEDS: SODIUM CHLORIDE 0.9% 1000ML 1,000 ML IV SCH ×2 (07:24→19:25)
[2018-05-01] MEDS: INSULIN ASPART 100 UNITS/ML 3 ML PEN SC SCH ×2 (07:51→11:45)
[2018-05-01] MEDS: BUDESONIDE/FORMOTEROL FUMARATE 160/4.5 60 PUFFS/INHALER INH SCH ×2 (09:06→22:34)
[2018-05-01] MEDS: TIOTROPIUM BROMIDE 5 PUFF/90 MCG INH INH SCH (09:06)
[2018-05-01] MEDS: AMOXICILLIN 500 MG CAP PO SCH (09:06)
[2018-05-01] MEDS: FOLIC ACID 1 MG TAB PO SCH (09:07)
[2018-05-01] MEDS: APIXABAN 2.5 MG TAB PO SCH ×2 (09:07→20:12)
[2018-05-01] MEDS: METOPROLOL TARTRATE 100 MG TAB PO SCH ×2 (09:07→20:12)
[2018-05-01] MEDS: dilTIAZem HCL 240 MG CAPCR PO SCH (09:08)
[2018-05-01] MEDS: PANTOprazole 40 MG TAB PO SCH (09:08)
[2018-05-01] MEDS: ASPIRIN 81 MG ECTAB PO SCH (09:08)
--- NOTE | 2018-05-01 10:59 | Progress Note ---
DATE: 05/01/2018 Ms. Corona was noted to have worsening renal function yesterday and was held off for discharge. Her creatinine continues to climb. She got as low as 1.49, but is now back up to 1.91. In addition, she remains in atrial fibrillation. At this point, I have canceled her surgery for 05/04/2018. I will see her back in the office. I have concerns about operating on this patient and I have asked Dr. Carolina to see her from a pulmonary standpoint and assess her operability.
--- NOTE | 2018-05-01 12:53 | Nephrology Consultation ---
Date of Consultation May 01, 2018 Assessment & Plan (1) Hypomagnesemia: this has been corrected; though w/ the ctx she had may well recur -check daily Present on Admission?: Yes (2) Anemia: not a procrit candidate unless dr Shaffer would approve - unlikely w/ this CA type -check iron stores w/ am labs (3) Chronic kidney disease (CKD): she has stage 3B CKD w/ eGFR generally in low 30s recently. very labile renal function this fall but baseline creatinine appears to be 1.4- 1.7; today she is 1.9, not technically meeting ROSEMARY criteria at least not yet. I suspect some of her ROSEMARY as outpatient late last month related to hypotension since her sbp was in 70-90s on 2 [facility] visits in March; it generally runs in 120-140s. Her bp here has been mostly good though dips into 90s at times transiently. along w/ hypotension, tachycardia w/ HR 110-120s may also have limited perfusion >> in 90s now. her calcium is low but corrects for her albumin -getting NS for now at 100 mL/hr which should continue as tolerated -renal u/s -repeat UACM -daily bmp -current meds/ electrolytes appropriate -she may well have uti and would treat even if no sx d/t new onset afib Present on Admission?: Yes History of Present Illness Reason for Consultation: ROSEMARY Requesting Physician: Dr Degroot Attending Physician: Sabiha Degroot, DO History of Present Illness 78 y/o F whom I'm asked to see for ROSEMARY after she was admitted here on 04/28 w/ AFib and RVR. She has non small cell lung CA dx'd 10/2017 and with paratracheal mets and for which last had CTX w/ alimta and carboplatin one month back; CTX held by Dr Shaffer in 03/2018 b/c of worse renal function. Mediastinoscopy planned early this month to evalute mets; if study negative Dr Hickman may do surgical intervention. Other PMH includes CAD, HTN, diet-controlled DM, remote tobacco abuse. No NSAID use; no stone hx. Her renal function has worsened this fall: creatinine used to run 0.9-1.0 summer 2017 and earlier to now more 1.2-1.7 and even wider range (quite labile). Of note on 04/01 she had creatinine 1.0, then 04/22 she had creatinine 4.1, improved to 2.0 by 04/25 and 1.4 by 04/28. She was sent to the hospital b/c of abnormal ECG in [facility] office. her creatinine was 1.6 on presentation, up to 1.9 today. She has been on losartan 100 mg daily for several years. This was held recently as an outpt w/ worsening renal function. Does not follow w/ nephrology. FOUnd to have e faecalis UTI on presentation. Her A fib was managed initially w/ heparin and diltiazem gtts; now on po dilt and eliquis. Allergies Allergy/AdvReac Type Severity Reaction Status Date / Time lisinopril Allergy Intermediate RASH Verified 04/28/18 18:25 zolpidem AdvReac Severe hallucinati Verified 04/28/18 18:25 ons Home Medications Home Medications Medication Instructions Recorded Confirmed Type albuterol sulfate [Ventolin HFA] 1 puff INHALATION Q6H PRN 04/21/18 04/28/18 History amlodipine 5 mg PO QAM 04/21/18 04/28/18 History aspirin [Ecotrin] 325 mg PO QAM 04/21/18 04/28/18 History budesonide-formoterol [Symbicort] 2 puff INHALATION BID 04/21/18 04/28/18 History diphenhydramine HCl [Benadryl] 25 mg PO HS PRN 04/21/18 04/28/18 History lorazepam 0.5 mg PO HS PRN 04/21/18 04/28/18 History metoprolol tartrate 100 mg PO BID 04/21/18 04/28/18 History pantoprazole 40 mg PO DAILY 04/21/18 04/28/18 History Magic Swizzle 30 ml PO QID PRN 04/28/18 History folic acid 1 mg PO DAILY 04/28/18 04/28/18 History hydrocodone-acetaminophen 1 tab PO Q6H PRN 04/28/18 04/28/18 History nitroglycerin 0.4 mg SUBLINGUAL UD PRN 04/28/18 04/28/18 History ondansetron 8 mg PO TID PRN 04/28/18 04/28/18 History prochlorperazine maleate 10 mg PO Q6 PRN 04/28/18 04/28/18 History [Compazine] tiotropium bromide [Spiriva 2 puff INHALATION DAILY 04/28/18 04/28/18 History Respimat] Patient History Medical History Anemia Cancer LUNG CANCER S/P RECENT CHEMO (COMPLETED 04/01/18) Chronic obstructive pulmonary disease GERD (gastroesophageal reflux disease) Hiatal hernia Hyperlipidemia Hypertension Myocardial Infarction 1992= [employer]NAGEMENT Osteoarthritis Osteoporosis Surgical History History of adenoidectomy History of appendectomy History of arthroscopy RIGHT KNEE History of cardiac cath 1992= NO STENTS History of cataract surgery BILATERAL History of section X4 History of colonoscopy History of hysterectomy JOSE WITH BSO History of lung surgery NAVIGATIONAL BRONCH/EBUS= 11/09/17= GRADE I VIEW, MAC 3, ETT 8.0 AT [facility] History of tonsillectomy History of tooth extraction Family History Grandfather (Paternal) Family hx of colon cancer Social History Current Living Situation: Family and Other Current Living Situation Comment: HAS A DISABLED SON LIVING WITH HER PLUS NURSING CARE POST OP Other Information That Helps Us Care for You: No Feels Safe at Home: Yes Smoking Status: Former smoker (QUIT IN 1992, SMOKED FOR 33 YEARS) Cigarettes per Day: 10 Hx Alcohol Use: Yes Alcohol Intake Frequency: holidays/special occasions only Hx Substance Use: No Beliefs That Will Affect Care: None Preferred Language: Sami Communication Ability: Effective Review of Systems Constitutional: + fatigue, + weakness, + anorexia and + weight loss (about 10 lb since December) Eyes: no worsening vision Ear, Nose, Mouth, Throat: no dry mouth food tastes/smells burnt since CTX Respiratory: no dyspnea and no dyspnea on exertion did have dyspnea yesterday Cardiovascular: no chest pain, no palpitations and no edema Gastrointestinal: no abdominal pain, no nausea, no vomiting and no change in bowel habits Genitourinary (Female): no dysuria, no urinary frequency, no urinary hesitancy and no hematuria denies chronic arthralgias/myalgias that she would do anything about Integumentary: no rash and no non-healing lesions Neurologic: no gait abnormality, no localized weakness, no abnormal speech and no confusion Psychiatric: no depression, no anxiety and no confusion Endocrine: + fatigue Hematologic / Lymphatic: no easy bleeding Physical Exam 2 Vital Signs (Past 24 Hours): Last Vital Signs Temp 36.5 C 05/01/18 12:07 Pulse 91 H 05/01/18 09:05 Resp 15 05/01/18 09:05 BP 114/68 05/01/18 09:05 Pulse Ox 94 05/01/18 09:05 Constitutional: well developed and well nourished; no acute distress Eyes: EOM intact bilaterally ENMT: Ears: no external ear abnormality Nose: no external nose abnormality Mouth: + dry oral mucous membranes Neck: no nuchal rigidity Respiratory: normal respiratory effort Auscultation: + diminished lung sounds Cardiovascular: Rate/Rhythm: + tachycardic; + abnormal rate Extremities: no edema Gastrointestinal (Abdomen): Inspection/Auscultation: normal bowel sounds Percussion/Palpation: abdomen soft; abdomen nontender Musculoskeletal: Extremities: strength 5/5 throughout Skin: no rashes, warm and dry Neurologic: aldana, fluent speech, no tremor Psychiatric: A+Ox3, euthymic affect Speech: normal rate/rhythm/volume of speech Genitourinary: no mendoza Results & Data Laboratory Results Abnormal lab results 04/30/18 04/30/18 05/01/18 Range/Units 16:11 20:07 05:36 Chloride 110 H (98-107) mmol/L Carbon Dioxide 19 L (21-32) mmol/L BUN 23 H (7-18) mg/dl Creatinine 1.91 H (0.6-1.2) mg/dl Glucose 127 H (70-99) mg/dl POC Glucose 142 H 125 H (70-99) Calcium 6.9 L (8.5-10.1) mg/dl 05/01/18 05/01/18 Range/Units 07:33 11:30 Chloride (98-107) mmol/L Carbon Dioxide (21-32) mmol/L BUN (7-18) mg/dl Creatinine (0.6-1.2) mg/dl Glucose (70-99) mg/dl POC Glucose 147 H 153 H (70-99) Calcium (8.5-10.1) mg/dl Diagnostic Findings cxr > stable mild cardiomegaly _ (1) Anemia Anemia type: unspecified type Bone marrow failure anemia type: Chronic kidney disease stage: Folate deficiency anemia type: Hemolytic anemia type: Iron deficiency anemia type: Other causes of anemia: Vitamin B12 deficiency anemia type: Qualified Code(s): D64.9 - Anemia, unspecified
--- NOTE | 2018-05-01 13:35 | Cardiology Progress Note ---
Date of Service May 01, 2018 Assessment & Plan (1) A-fib: remains asymptomatic rates increased today, will increase cardizem cd to 240mg daily cont Eliquis, renal dosing will require a bridge for any invasive procedures (2) ROSEMARY (acute kidney injury): likely volume depletion will give a 1L challenge today and follow (3) Anemia: likely secondary to chemo no sign of active bleeding would transfuse if Hgb drops below 8 will need to follow closely with hydration (4) Adenocarcinoma, lung: originally scheduled for surgery on 05/04 no cardiac contraindication at this point would cont with medical optimization and if renal function and anemia are stabilized would proceed pt counseled that I would place her at a moderate risk for adverse perioperative cardiovascular event with risk approx <5% further counseled that no further testing or intervention would further lower that risk patient states that she understands and is accepting or risk Subjective Pt seen and examined, states that she feels well, currently ambulating in room. Continues to deny cp, sob, palpitations, lightheadedness or dizziness. Tele reviewed: afib rate controlled overnight. Physical Exam 2 Vital Signs (Past 24 Hours): Last Vital Signs Temp 36.5 C 05/01/18 12:07 Pulse 91 H 05/01/18 09:05 Resp 15 05/01/18 09:05 BP 114/68 05/01/18 09:05 Pulse Ox 94 05/01/18 09:05 Physical Exam: General: Awake, alert and oriented x 3. No acute distress. HEENT: Normocephalic, atraumatic. Pupils equal, round and reactive to light and accommodation. Extraocular muscles are intact. Anicteric sclera. Moist mucous membranes. Neck: No JVD. No bruit. Cardiovascular: regularly irregular, unable to appreciate murmur, rub or gallop. Pulmonary: Clear to auscultation bilaterally. No rales, rhonchi, or wheezing. Abdomen: Bowel sounds x 4, soft. No rebound, guarding or tenderness. No organomegaly. Extremities: No clubbing, cyanosis or edema. +2 pedal pulses bilaterally. Skin: Warm and dry. _ (1) A-fib Atrial fibrillation type: unspecified Qualified Code(s): I48.91 - Unspecified atrial fibrillation (2) Anemia Anemia type: unspecified type Bone marrow failure anemia type: Chronic kidney disease stage: Folate deficiency anemia type: Hemolytic anemia type: Iron deficiency anemia type: Other causes of anemia: Vitamin B12 deficiency anemia type: Qualified Code(s): D64.9 - Anemia, unspecified
--- NOTE | 2018-05-01 14:11 | Pharmacy Report ---
Pharmacy Glycemic Sign Off Nt - Date of Service May 01, 2018 - Assessment & Plan ASSESSMENT: * Pharmacy was consulted by Dr Garcia on 04/28/18 for glycemic control and to write orders per [facility] inpatient glycemic control protocol. * Major changes made by pharmacy to antidiabetic regimen include: * Starting Novolog ACHS with CF * Patient has been receiving/requiring 0-1 units of insulin per day for adequate glycemic control * BSGs ranging 111-185 mg/dl * Regimen has only required minor adjustments over the past 48hrs to achieve this level of control * Do not anticipate further changes in patient status that would quickly deteriorate glycemic control PLAN FOR INPATIENT GLYCEMIC CONTROL: * DISContinue NovoLog per scale ACHS/Q6hrs while NPO * A1c added to discharge instructions to be communicated to PCP. * Pharmacy is signing off of glycemic consult and will no longer be making adjustments to inpatient regimen. Please feel free to re-consult if needed. Thank you. DISCHARGE RECOMMENDATIONS: * A1c 6.4 % on 04/29/18 - no diabetic meds at home, none needed at this time.
[2018-05-01] MEDS: ONDANSETRON INJ 2 MG/ML 2 ML VIAL IV PRN (14:27)
[2018-05-01 14:31] LABS: Appearance Urine Turbid (Clear); Bacteria Urine Automated Negative (Negative); Bilirubin Urine Negative (Negative); Color Urine Yellow; Glucose Urine UA Negative (Negative); Ketones Urine Negative (Negative); Leukocyte Esterase Urine 3+ (Negative); Nitrite Urine Negative (Negative); Protein Urine 1+ (Negative); Specific Gravity Urine 1.016 (1.000-1.030); Urobilinogen Urine Negative (Negative); WBC Urine Automated >30 /hpf (0-5)
--- NOTE | 2018-05-01 15:46 | Hospitalist Progress Note ---
Date of Service May 01, 2018 Assessment & Plan (1) ROSEMARY (acute kidney injury): Somewhat worse. Nephro consulted in light of upcoming surgery for lung cancer. Fraction excretion of sodium calculates to 0.9% to 1% indicating borderline prerenal versus intrinsic causes. Per nephrology it is possible this patient may have some ATN secondary to intermittent hypotension as well as tachycardia with recent RVR. We will continue IV fluids, obtain renal ultrasound, and continue to renally dose medications. Trend BMP daily. (2) Nausea: resolved (3) A-fib: Cont Dilt PO, home Metoprolol, and new Eliquis per Cardiology. May need to adjust Eliquis in the setting of ROSEMARY. (4) Adenocarcinoma, lung: The patient was recently diagnosed in November 2017 and has been on chemotherapy with last dose on 04/01. She is scheduled to have surgery with Dr. Hickman on 05/04. Cleared to proceed without further cardiac workup. (5) Anemia: Macrocytic anemia noted on labs. Large drop in H&H in the last 6 months from to 8.8/27. She began chemotherapy in November 2017, and malignancy with chemotherapy is likely the cause of this anemia. There is no active bleeding at this time. In setting of h/o CAD, Cardio recommends keeping H/H above 8/25. May drop slightly with IVF today and might need some blood in am. Trend CBC in am. (6) Diabetes mellitus, type II: At goal, cont current therapy. (7) HTN (hypertension): She takes amlodipine 5 mg p.o. every morning, metoprolol 100 p.o. twice daily as an outpatient. She is now on p.o. diltiazem for additional rate control. Cards did not adjust BB in setting of upcoming procedure next week (8) COPD (chronic obstructive pulmonary disease): Stable, no evidence of exacerbation. (9) Anxiety: PRN Lorazepam (10) CAD (coronary artery disease): She has a history of coronary artery disease status post PCI and Rotablator to the RCA in 1992 with residual nonobstructive disease of the LAD. She is medically managed with atorvastatin, aspirin, losartan and metoprolol. (11) DVT prophylaxis: Apixaban Code status -Full Dispo-transfer to [facility], to home once medically stable in a cast has resolved per DO Daniel Pageer Hospitalist Subjective 78-year-old female presented for new onset A. fib with RVR, active malignancy status post chemotherapy, and worsening AK I. Her nausea has resolved. She is tolerating food without issue. She denies any pain, shortness of breath or other issues at this time. No UTI symptoms. She is tolerating all the new medicines without issue. Physical Exam 2 Vital Signs (Past 24 Hours): Last Vital Signs Temp 36.4 C L 05/01/18 15:10 Pulse 61 05/01/18 15:10 Resp 18 05/01/18 15:10 BP 117/56 L 05/01/18 15:10 Pulse Ox 98 05/01/18 15:10 CONSTITUTIONAL: WNWD, vitals as above, generally well-appearing EYES: normal conjuctivae, no scleral icterus RESPIRATORY: clear to auscultation bilaterally, no crackles, rales or wheezes, normal respiratory effort CARDIOVASCULAR: irregular rate and rhythm, S1 and 2 heard without murmurs, gallops or rubs, no JVD, no peripheral edema GASTROINTESTINAL: normal bowel sounds, soft, nontender, nondistended MUSCULOSKELETAL: strength 5/5 throughout, head is normocephalic and atraumatic SKIN: warm and dry NEUROLOGIC: CN 2-12 grossly intact PSYCHIATRIC: alert cooperative and oriented to person, place and time. Results & Data Laboratory Results [facility] 05/01/18 05:36 Sodium 137 Potassium 4.2 Chloride 110 H Carbon Dioxide 19 L BUN 23 H Creatinine 1.91 H Glucose 127 H Calcium 6.9 L Urine 05/01/18 Range/Units 14:13 Urine Color Yellow Urine Appearance Turbid H (Clear) Urine pH 5.0 (4.5-7.5) Ur Specific [place] 1.016 (1.000-1.030) Urine Protein 1+ H (Negative) Urine Glucose (UA) Negative (Negative) Medications Administered Current Inpatient Medications Acetaminophen (Tylenol) 650 mg PO Q4H PRN PRN Reason: Pain or Fever Stop: 05/28/18 20:47 Hydrocodone Bitart/Acetaminophen ([place] 5/325) 1 tab PO Q6H PRN PRN Reason: Pain Stop: 05/12/18 20:47 Last Admin: 05/01/18 04:14 Dose: 1 tab Albuterol (Ventolin Hfa) 1 puffs INH Q6H PRN PRN Reason: Shortness Of Breath Stop: 05/28/18 20:47 Amoxicillin (Amoxil) 250 mg PO BID [facility] Stop: 05/07/18 08:59 Apixaban (Eliquis) 2.5 mg PO BID [facility] Stop: 05/29/18 20:59 Last Admin: 05/01/18 09:07 Dose: 2.5 mg Aspirin (Ecotrin) 81 mg PO QAM STEFAN Stop: 05/29/18 09:44 Last Admin: 05/01/18 09:08 Dose: 81 mg Budesonide/Formoterol Fumarate (Symbicort 160mcg/4.5mcg) 2 puffs INH BID [facility] Stop: 05/28/18 20:59 Last Admin: 05/01/18 09:06 Dose: 2 puffs Dextrose (Dextrose 50%) 25 - 50 ml IV UD PRN; Protocol PRN Reason: Hypoglycemia Protocol Stop: 05/28/18 20:47 Diltiazem HCl (Cardizem Cd) 240 mg PO QAM STEFAN Stop: 05/31/18 08:59 Last Admin: 05/01/18 09:08 Dose: 240 mg Diphenhydramine HCl (Benadryl) 25 mg PO HS PRN PRN Reason: Sleep Stop: 05/28/18 20:47 Folic Acid (Folvite) 1 mg PO DAILY [facility] Stop: 05/29/18 08:59 Last Admin: 05/01/18 09:07 Dose: 1 mg Glucagon (Glucagen) 1 mg SQ UD PRN; Protocol PRN Reason: Hypoglycemia Protocol Stop: 05/28/18 20:47 Glucose (Glucose 40%) 15 - 30 gm PO UD PRN; Protocol PRN Reason: Hypoglycemia Protocol Stop: 05/28/18 20:47 Glucose (Dex4 Glucose) 4 - 8 tabs PO UD PRN; Protocol PRN Reason: Hypoglycemia Protocol Stop: 05/28/18 20:47 Sodium Chloride (Nss 1000ml) 1,000 mls @ 100 mls/hr IV .Q10H [facility] Stop: 05/30/18 10:44 Last Admin: 05/01/18 07:24 Dose: 100 mls/hr Lidocaine (Lidoderm 5%) 1 patch TD DAILY [facility] Stop: 05/31/18 16:59 Lorazepam (Ativan) 0.5 mg PO HS PRN PRN Reason: Anxiety Stop: 05/28/18 20:47 Metoprolol Tartrate (Lopressor) 100 mg PO BID [facility] Stop: 05/28/18 20:59 Last Admin: 05/01/18 09:07 Dose: 100 mg Miscellaneous (Carbohydrates For Hypoglycemia) 15 - 30 gm PO UD PRN PRN Reason: Hypoglycemia Treatment Stop: 05/28/18 20:47 Miscellaneous (Remove Lidoderm Patch) 1 ea N/A HS [facility] Stop: 05/31/18 20:59 Morphine Sulfate (Morphine Sulfate) 2 mg IV Q30M PRN PRN Reason: Chest Pain Stop: 05/12/18 20:47 Nitroglycerin (Nitrostat) 0.4 mg SL UD PRN PRN Reason: Chest Pain Stop: 05/28/18 20:47 Ondansetron HCl (Zofran) 4 mg IV Q6H PRN PRN Reason: Nausea Stop: 05/28/18 20:47 Last Admin: 05/01/18 14:27 Dose: 4 mg Pantoprazole Sodium (Protonix) 40 mg PO DAILY [facility] Stop: 05/29/18 08:59 Last Admin: 05/01/18 09:08 Dose: 40 mg Polyethylene Glycol (Miralax Powder Packet) 17 gm PO DAILY PRN PRN Reason: Constipation Stop: 05/28/18 20:47 Last Admin: 04/30/18 20:47 Dose: 17 gm Prochlorperazine (Compazine) 10 mg PO Q6 PRN PRN Reason: Nausea Stop: 05/28/18 20:47 Tiotropium [place] (Spiriva) 1 puffs INH DAILY [facility] Stop: 05/29/18 08:59 Last Admin: 05/01/18 09:06 Dose: 1 puffs _ (1) Anemia Anemia type: unspecified type Bone marrow failure anemia type: Chronic kidney disease stage: Folate deficiency anemia type: Hemolytic anemia type: Iron deficiency anemia type: Other causes of anemia: Vitamin B12 deficiency anemia type: Qualified Code(s): D64.9 - Anemia, unspecified (2) A-fib Atrial fibrillation type: unspecified Qualified Code(s): I48.91 - Unspecified atrial fibrillation
--- NOTE | 2018-05-01 17:58 | Ultrasound Report ---
ULTRASOUND KIDNEYS AND BLADDER CLINICAL HISTORY: Renal insufficiency. COMPARISON STUDY: PET CT dated 04/13/2018. TECHNIQUE: Real-time, grayscale, and color flow sonography of the kidneys and bladder is performed. I mages are reviewed in the transverse and longitudinal planes. FINDINGS: Kidneys: The kidneys are atrophic. The right kidney measures 8.9 cm in length and the left kidney vinnie sures 8.5 cm. There is no hydronephrosis. No shadowing renal calculi are identified. There are bilat eral renal cysts which measure up to 3.0 cm. There is no sonographic evidence of contour deforming re nal mass lesion. No perinephric fluid is identified. Bladder: Intraluminal debris is noted in the bladder. Ureteral jets were not seen. IMPRESSION: 1. The kidneys are atrophic and without hydronephrosis. 2. Intraluminal debris is noted in the bladder. Correlation with urinalysis will be required. Electronically signed by: Michele Kelley M.D. 05/01/2018 5:57 PM
[2018-05-01] MEDS: LIDOCAINE 5% 1 PATCH TD SCH (20:11)
--- NOTE | 2018-05-01 20:12 | Pulmonary Consultation ---
Date of Consultation May 01, 2018 Assessment & Plan (1) Chronic kidney disease (CKD): Impression: 1. Adenocarcinoma of the lung, right upper lobe, stage IIb, medical sized to the right upper lobe with multiple nodules, right paratracheal lymph node, positive by FDG PET scan, if positive for malignancy pathologically, it would make it stage IIIa. 2. COPD, gold level II, most recent FEV1 was 65%. 3. A. fib, rate controlled. 4. Acute on chronic kidney insufficiency. 5. GERD with hiatal hernia. Plan: 1. The patient best approach with intention to cure her malignancy would be right upper lobe lobectomy with mediastinal lymphadenectomy. She is medically clear from pulmonary standpoint to the procedure. No need for further preop pulmonary testing in that regard. Her best chance of longevity from lung cancer standpoint lies on resecting her right upper lobe rather than medical management only. 2. Concerns for hiatal hernia noted on the CAT scan that could put her at risk for aspiration postop. 3. Continue bronchodilators. 4. Cardiology input appreciated. 5. Hold Eliquis for at least 2 days prior to the procedure. Thank you, will follow as needed. (2) Acute on chronic renal failure: History of Present Illness Reason for Consultation: Lung nodule Requesting Physician: Dr. Hickman Attending Physician: Sabiha Degroot, History of Present Illness Dear : Thank you for your kind referral Mrs. Escalante to pulmonary service. This is 78- year-old female known to me from the past with a history of right upper lobe nodule, I have performed navigational bronchoscopy on her in October 2017 with a biopsy showed adenocarcinoma of the lung. The patient underwent ever since workup including PET scan and 4 cycles of chemotherapy with good response to the chemotherapy. In fact the FDG uptake was much decreased in the right upper lobe lesion. Lymphadenopathy were negative by the E was and they were negative also on the FDG except for 1 right paratracheal lymph node measuring 1.7 cm. The patient presented to the doctor's office where she was found to be hypertensive and transferred to the ED for further workup. Patient was admitted to the hospital and she was already on scheduled for surgical intervention for right upper lobe lobectomy. The patient did complete her neoadjuvant chemotherapy. When I interviewed the patient, she denies any increased shortness of breath, no chest pain, no abdominal pain reported, no nausea or vomiting, no dysphagia, no increased swelling in her ankles, no hemoptysis reported either. The rest of her review of system was unremarkable. Family history does not relate to her current illness. She is ex-smoker quit 4 years ago. Allergies Allergy/AdvReac Type Severity Reaction Status Date / Time lisinopril Allergy Intermediate RASH Verified 04/28/18 18:25 zolpidem AdvReac Severe hallucinati Verified 04/28/18 18:25 ons Home Medications Home Medications Medication Instructions Recorded Confirmed Type albuterol sulfate [Ventolin HFA] 1 puff INHALATION Q6H PRN 04/21/18 04/28/18 History amlodipine 5 mg PO QAM 04/21/18 04/28/18 History aspirin [Ecotrin] 325 mg PO QAM 04/21/18 04/28/18 History budesonide-formoterol [Symbicort] 2 puff INHALATION BID 04/21/18 04/28/18 History diphenhydramine HCl [Benadryl] 25 mg PO HS PRN 04/21/18 04/28/18 History lorazepam 0.5 mg PO HS PRN 04/21/18 04/28/18 History metoprolol tartrate 100 mg PO BID 04/21/18 04/28/18 History pantoprazole 40 mg PO DAILY 04/21/18 04/28/18 History Magic Swizzle 30 ml PO QID PRN 04/28/18 History folic acid 1 mg PO DAILY 04/28/18 04/28/18 History hydrocodone-acetaminophen 1 tab PO Q6H PRN 04/28/18 04/28/18 History nitroglycerin 0.4 mg SUBLINGUAL UD PRN 04/28/18 04/28/18 History ondansetron 8 mg PO TID PRN 04/28/18 04/28/18 History prochlorperazine maleate 10 mg PO Q6 PRN 04/28/18 04/28/18 History [Compazine] tiotropium bromide [Spiriva 2 puff INHALATION DAILY 04/28/18 04/28/18 History Respimat] Patient History Medical History Anemia Cancer LUNG CANCER S/P RECENT CHEMO (COMPLETED 04/01/18) Chronic obstructive pulmonary disease GERD (gastroesophageal reflux disease) Hiatal hernia Hyperlipidemia Hypertension Myocardial Infarction 1992= MEDICAL MANAGEMENT Osteoarthritis Osteoporosis Surgical History History of adenoidectomy History of appendectomy History of arthroscopy RIGHT KNEE History of cardiac cath 1992= NO STENTS History of cataract surgery BILATERAL History of section X4 History of colonoscopy History of hysterectomy JOSE WITH BSO History of lung surgery NAVIGATIONAL BRONCH/EBUS= 11/09/17= GRADE I VIEW, MAC 3, ETT 8.0 AT [facility] History of tonsillectomy History of tooth extraction Family History Grandfather (Paternal) Family hx of colon cancer Social History Current Living Situation: Family and Other Current Living Situation Comment: HAS A DISABLED SON LIVING WITH HER PLUS NURSING CARE POST OP Other Information That Helps Us Care for You: No Feels Safe at Home: Yes Smoking Status: Former smoker (QUIT IN 1992, SMOKED FOR 33 YEARS) Cigarettes per Day: 10 Hx Alcohol Use: Yes Alcohol Intake Frequency: holidays/special occasions only Hx Substance Use: No Beliefs That Will Affect Care: None Preferred Language: Citizen Of [place] Communication Ability: Effective Review of Systems Review of system otherwise was unremarkable. Physical Exam 2 Vital Signs (Past 24 Hours): Last Vital Signs Temp 36.6 C 05/01/18 19:23 Pulse 80 05/01/18 19:23 Resp 20 05/01/18 19:23 BP 106/68 05/01/18 19:23 Pulse Ox 95 05/01/18 19:23 Physical Exam: Vital signs are stable, S1-S2 regular rate and rhythm, distant breath sounds, abdomen is benign, no edema, no rash, no oral thrush, neurologically she is nonfocal, no visual disturbances. Results & Data Laboratory Results CBC and BMP appears stable however her creatinine is slightly up from previous. Diagnostic Findings I have reviewed the PET scan from previous and recently, the right upper lobe nodule appeared to be decreasing in size, the right paratracheal lymph node measuring 1.7 cm remains the same with FDG uptake.
[2018-05-02] MEDS: SODIUM CHLORIDE 0.9% 1000ML 1,000 ML IV SCH (05:47)
[2018-05-02 06:09] LABS: Hemoglobin 7.4 g/dL (12.0-16.0); Mean Corpuscular Hgb Conc 32.2 g/dL (32-36); Mean Platelet Volume 9.3 fL (7.4-10.4); Platelet Count 179 K/uL (130-400); RDW Coefficient of Variation 17.4 % (11.5-14.5); RDW Standard Deviation 64.7 fL (36.4-46.3); Red Blood Count 2.19 M/uL (4.2-5.4); White Blood Count 6.45 K/uL (4.8-10.8)
[2018-05-02 06:15] LABS: Partial Thromboplastin Ratio 1.2; Partial Thromboplastin Time 30.5 Seconds (21.0-31.0)
[2018-05-02 06:39] LABS: Albumin Level 2.1 gm/dl (3.4-5.0); BUN Creatinine Ratio 12.4 (10-20); Calcium 6.6 mg/dl (8.5-10.1); Est GFR (African American) 31.1; Est GFR (Non-African American) 26.8; Magnesium 1.9 mg/dl (1.8-2.4); Potassium 4.5 mmol/L (3.5-5.1)
[2018-05-02 06:43] LABS: Phosphorus 2.9 mg/dl (2.5-4.9)
--- NOTE | 2018-05-02 07:43 | Nephrology Progress Note ---
Date of Service May 02, 2018 Assessment & Plan (1) Hypomagnesemia: this has been corrected; though w/ the ctx she had may well recur -cont to check daily (2) Anemia: not a procrit candidate unless dr Shaffer would approve - unlikely w/ this CA type -checked iron stores w/ am labs>> they are replete -defer transfusion pRBC if needed to primary service; not likely needed today (3) Chronic kidney disease (CKD): she has stage 3B CKD w/ eGFR generally in low 30s recently. very labile renal function this fall but baseline creatinine appears to be 1.4- 1.7; today she is 1.8, not technically meeting ROSEMARY criteria at least not yet. I suspect some of her ROSEMARY as outpatient late last month related to hypotension since her sbp was in 70-90s on 2 [facility] visits in March late; it generally runs in 120-140s. Her bp here has been mostly good though dips into 90s at times transiently. along w/ hypotension, tachycardia w/ HR 110-120s may also have limited perfusion >> in 90s now. her calcium is low but corrects for her albumin -change NS to bicarb gtt at 100 mL/hr which should continue as tolerated >> developing hyperchloremic acidosis -renal u/s noted; no acute issues -repeat UACM w/o infection and w/ some inflammation >> could suggest interstitial nephritis; also concentrated so would continue IVF as tolerated; low threshold for cxr -daily bmp -current meds/ electrolytes appropriate except as above Subjective seen on rounds this am. no sob. no edema. eating well; no F. no voiding sx. no palpitations. no sinus concerns or headache. Physical Exam 2 Vital Signs (Past 24 Hours): Last Vital Signs Temp 36.3 C L 05/02/18 03:51 Pulse 85 05/02/18 03:51 Resp 20 05/02/18 03:51 BP 102/51 L 05/02/18 03:51 Pulse Ox 92 05/02/18 03:51 Constitutional: well developed and well nourished; no acute distress sitting in chair on RA having eated full breakfast Eyes: EOM intact bilaterally ENMT: Ears: no external ear abnormality Nose: no external nose abnormality Mouth: + dry oral mucous membranes Neck: no nuchal rigidity Respiratory: normal respiratory effort Auscultation: + diminished lung sounds diffuse rhonchi Cardiovascular: Rate/Rhythm: + tachycardic; + abnormal rate Extremities: no edema (trace BL ankles) Gastrointestinal (Abdomen): Inspection/Auscultation: normal bowel sounds Percussion/Palpation: abdomen soft; abdomen nontender Musculoskeletal: Extremities: strength 5/5 throughout Skin: no rashes, warm and dry Neurologic: awake Speech / Cognition: normal cognition Motor/Sensory: normal movement Psychiatric: A+Ox3, euthymic affect Speech: normal rate/rhythm/volume of speech Genitourinary: no mendoza Results & Data Laboratory Results Abnormal lab results 05/01/18 05/01/18 05/01/18 Range/Units 07:33 11:30 14:13 RBC (4.2-5.4) M/uL Hgb (12.0-16.0) g/dL Hct (37-47) % MCV (80-100) fL RDW Std Deviation (36.4-46.3) fL RDW Coeff of Ilya (11.5-14.5) % Chloride (98-107) mmol/L Carbon Dioxide (21-32) mmol/L BUN (7-18) mg/dl Creatinine (0.6-1.2) mg/dl Glucose (70-99) mg/dl POC Glucose 147 H 153 H (70-99) Calcium (8.5-10.1) mg/dl Transferrin (200-360) mg/dl Albumin (3.4-5.0) gm/dl Urine Appearance Turbid H (Clear) Urine Protein 1+ H (Negative) Urine Blood 1+ H (Negative) Ur Leukocyte Esterase 3+ H (Negative) Urine WBC (Auto) >30 H (0-5) /hpf Urine RBC (Auto) 10-30 H (0-4) /hpf U Epithel Cells (Auto) 10-20 H (0-5) /lpf 05/02/18 05/02/18 Range/Units 05:44 05:44 RBC 2.19 L (4.2-5.4) M/uL Hgb 7.4 L (12.0-16.0) g/dL Hct 23.0 L (37-47) % MCV 105.0 H (80-100) fL RDW Std Deviation 64.7 H (36.4-46.3) fL RDW Coeff of Ilya 17.4 H (11.5-14.5) % Chloride 115 H (98-107) mmol/L Carbon Dioxide 17 L (21-32) mmol/L BUN 22 H (7-18) mg/dl Creatinine 1.77 H (0.6-1.2) mg/dl Glucose 104 H (70-99) mg/dl POC Glucose (70-99) Calcium 6.6 L (8.5-10.1) mg/dl Transferrin 126 L (200-360) mg/dl Albumin 2.1 L (3.4-5.0) gm/dl Urine Appearance (Clear) Urine Protein (Negative) Urine Blood (Negative) Ur Leukocyte Esterase (Negative) Urine WBC (Auto) (0-5) /hpf Urine RBC (Auto) (0-4) /hpf U Epithel Cells (Auto) (0-5) /lpf Diagnostic Findings renal u/s 1. The kidneys are atrophic and without hydronephrosis. 2. Intraluminal debris is noted in the bladder. Correlation with urinalysis will be required. _ (1) Anemia Anemia type: unspecified type Bone marrow failure anemia type: Chronic kidney disease stage: Folate deficiency anemia type: Hemolytic anemia type: Iron deficiency anemia type: Other causes of anemia: Vitamin B12 deficiency anemia type: Qualified Code(s): D64.9 - Anemia, unspecified
[2018-05-02] MEDS: dilTIAZem HCL 240 MG CAPCR PO SCH (08:17)
[2018-05-02] MEDS: AMOXICILLIN 250 MG CAP PO SCH ×2 (08:17→21:17)
[2018-05-02] MEDS: PANTOprazole 40 MG TAB PO SCH (08:18)
[2018-05-02] MEDS: ASPIRIN 81 MG ECTAB PO SCH (08:18)
[2018-05-02] MEDS: FOLIC ACID 1 MG TAB PO SCH (08:18)
[2018-05-02] MEDS: METOPROLOL TARTRATE 100 MG TAB PO SCH ×2 (08:19→21:18)
[2018-05-02] MEDS: BUDESONIDE/FORMOTEROL FUMARATE 160/4.5 60 PUFFS/INHALER INH SCH ×2 (08:19→21:17)
[2018-05-02] MEDS: TIOTROPIUM BROMIDE 5 PUFF/90 MCG INH INH SCH (08:20)
[2018-05-02] MEDS: LIDOCAINE 5% 1 PATCH TD SCH ×2 (08:23→11:39)
[2018-05-02] MEDS: APIXABAN 2.5 MG TAB PO SCH ×3 (08:27→21:17)
[2018-05-02] MEDS: SODIUM BICARBONATE 8.4% 150 MEQ in DEXTROSE 5% 1,000 ML IV SCH (08:33)
[2018-05-02] MEDS ORDERED: ALUMINUM/MAGNESIUM SUSP 72 ML, LIDOCAINE HCL VISCOUS 2% 24 ML, BARCODE IDENTIFIER 1 EA PO PRN (12:47)
[2018-05-02] MEDS: HYDROCODONE/ACETAMOPHEN 5/325MG TAB PO PRN (12:58)
[2018-05-02] MEDS ORDERED: CALCIUM CARBONATE 500 MG CHEWABLE TAB PO PRN (14:58)
--- NOTE | 2018-05-02 18:03 | Hospitalist Progress Note ---
Date of Service May 02, 2018 Assessment & Plan (1) ROSEMARY (acute kidney injury): Improved. Nephro consulted in light of upcoming surgery for lung cancer, which has been rescheduled. Fraction excretion of sodium calculates to 0.9% to 1% indicating borderline prerenal versus intrinsic causes. Per nephrology it is possible this patient may have some ATN secondary to intermittent hypotension as well as tachycardia with recent RVR. Improvement with IVF which were switched to bicarbonate. We will continue IV fluids, obtain renal ultrasound,appreciate Neprho recs. Trend BMP daily. (2) Nausea: intermittent, poss 2/2 afib? (3) A-fib: Cont Dilt PO, home Metoprolol, and new Eliquis per Cardiology. (4) Adenocarcinoma, lung: The patient was recently diagnosed in November 2017 and has been on chemotherapy with last dose on 04/01. She is scheduled to have surgery with Dr. Hickman at end of Apr. Cleared to proceed without further cardiac workup. (5) Anemia: Macrocytic anemia noted on labs. Large drop in H&H in the last 6 months from to 8.8/27. She began chemotherapy in November 2017, and malignancy with chemotherapy is likely the cause of this anemia. There is no active bleeding at this time. In setting of h/o CAD, Cardio recommends keeping H/H above 8/25. Blood recommended bu the patient declined. Repeat CBC in am. (6) Diabetes mellitus, type II: At goal, cont current therapy. (7) HTN (hypertension): She takes amlodipine 5 mg p.o. every morning, metoprolol 100 p.o. twice daily as an outpatient. She is now on p.o. diltiazem for additional rate control. Cards did not adjust BB in setting of upcoming procedure next week (8) COPD (chronic obstructive pulmonary disease): Stable, no evidence of exacerbation. (9) Anxiety: PRN Lorazepam (10) CAD (coronary artery disease): She has a history of coronary artery disease status post PCI and Rotablator to the RCA in 1992 with residual nonobstructive disease of the LAD. She is medically managed with atorvastatin, aspirin, losartan and metoprolol. (11) DVT prophylaxis: Apixaban Code status -Full Dispo-transfer to [facility], to home once medically stable in a cast has resolved per Sabiha Degroot DO [facility] Hospitalist Subjective +nausea -ROS otherwise negative +yasmin PO Physical Exam 2 Vital Signs (Past 24 Hours): Last Vital Signs Temp 36.4 C L 05/02/18 15:27 Pulse 53 L 05/02/18 15:27 Resp 18 05/02/18 15:27 BP 107/61 05/02/18 15:27 Pulse Ox 96 05/02/18 15:27 CONSTITUTIONAL: WNWD, vitals as above, generally well-appearing EYES: normal conjuctivae, no scleral icterus RESPIRATORY: clear to auscultation bilaterally, no crackles, rales or wheezes, normal respiratory effort CARDIOVASCULAR: irregular rate and rhythm, S1 and 2 heard without murmurs, gallops or rubs, no JVD, no peripheral edema GASTROINTESTINAL: normal bowel sounds, soft, nontender, nondistended MUSCULOSKELETAL: strength 5/5 throughout, head is normocephalic and atraumatic SKIN: warm and dry NEUROLOGIC: CN 2-12 grossly intact PSYCHIATRIC: alert cooperative and oriented to person, place and time. Results & Data Laboratory Results Short CBC 05/02/18 Range/Units 05:44 WBC 6.45 (4.8-10.8) K/uL Hgb 7.4 L (12.0-16.0) g/dL Hct 23.0 L (37-47) % Plt Count 179 (130-400) K/uL BMP 05/02/18 05:44 Sodium 141 Potassium 4.5 Chloride 115 H Carbon Dioxide 17 L BUN 22 H Creatinine 1.77 H Glucose 104 H Calcium 6.6 L Liver Function 05/02/18 Range/Units 05:44 Albumin 2.1 L (3.4-5.0) gm/dl Medications Administered Current Inpatient Medications Acetaminophen (Tylenol) 650 mg PO Q4H PRN PRN Reason: Pain or Fever Stop: 05/28/18 20:47 Hydrocodone Bitart/Acetaminophen (Conception 5/325) 1 tab PO Q6H PRN PRN Reason: Pain Stop: 05/12/18 20:47 Last Admin: 05/02/18 12:58 Dose: 1 tab Albuterol (Ventolin Hfa) 1 puffs INH Q6H PRN PRN Reason: Shortness Of Breath Stop: 05/28/18 20:47 Amoxicillin (Amoxil) 250 mg PO BID [facility] Stop: 05/07/18 08:59 Last Admin: 05/02/18 21:17 Dose: 250 mg Apixaban (Eliquis) 2.5 mg PO BID [facility] Stop: 05/29/18 20:59 Last Admin: 05/02/18 21:17 Dose: 2.5 mg Aspirin (Ecotrin) 81 mg PO QAM [facility] Stop: 05/29/18 09:44 Last Admin: 05/02/18 08:18 Dose: 81 mg Budesonide/Formoterol Fumarate (Symbicort 160mcg/4.5mcg) 2 puffs INH BID [facility] Stop: 05/28/18 20:59 Last Admin: 05/02/18 21:17 Dose: 2 puffs Calcium Carbonate (Tums) 1,000 mg PO QID PRN PRN Reason: Indigestion Stop: 06/01/18 14:57 Al Hydrox/Mg Hydrox/Simethicone 72 ml/ Lidocaine HCl 24 ml/ BARCODE IDENTIFIER 1 ea 0 ml PO Q8H PRN PRN Reason: Heartburn Stop: 06/01/18 12:46 Last Admin: 05/02/18 13:38 Dose: 96 ml Dextrose (Dextrose 50%) 25 - 50 ml IV UD PRN; Protocol PRN Reason: Hypoglycemia Protocol Stop: 05/28/18 20:47 Diltiazem HCl (Cardizem Cd) [facility] Stop: 05/31/18 08:59 Last Admin: 05/02/18 08:17 Dose: 240 mg Diphenhydramine HCl (Benadryl) 25 mg PO HS PRN PRN Reason: Sleep Stop: 05/28/18 20:47 Last Admin: 05/03/18 00:10 Dose: 25 mg Folic Acid (Folvite) 1 mg PO DAILY [facility] Stop: 05/29/18 08:59 Last Admin: 05/02/18 08:18 Dose: 1 mg Glucagon (Glucagen) 1 mg SQ UD PRN; Protocol PRN Reason: Hypoglycemia Protocol Stop: 05/28/18 20:47 Glucose (Glucose 40%) 15 - 30 gm PO UD PRN; Protocol PRN Reason: Hypoglycemia Protocol Stop: 05/28/18 20:47 Glucose (Dex4 Glucose) 4 - 8 tabs PO UD PRN; Protocol PRN Reason: Hypoglycemia Protocol Stop: 05/28/18 20:47 Sodium Bicarbonate 150 meq/ (Dextrose) 1,150 mls @ 80 mls/hr IV .[id number] [facility] Stop: 06/01/18 08:14 Last Admin: 05/03/18 00:12 Dose: 80 mls/hr Lidocaine (Lidoderm 5%) 1 patch TD DAILY [facility] Stop: 05/31/18 16:59 Last Admin: 05/02/18 11:39 Dose: 1 patch Lorazepam (Ativan) 0.5 mg PO HS PRN PRN Reason: Anxiety Stop: 05/28/18 20:47 Last Admin: 05/03/18 00:10 Dose: 0.5 mg Metoprolol Tartrate (Lopressor) 100 mg PO BID [facility] Stop: 05/28/18 20:59 Last Admin: 05/02/18 21:18 Dose: 100 mg Miscellaneous (Carbohydrates For Hypoglycemia) 15 - 30 gm PO UD PRN PRN Reason: Hypoglycemia Treatment Stop: 05/28/18 20:47 Miscellaneous (Remove Lidoderm Patch) 1 ea N/A HS [facility] Stop: 05/31/18 20:59 Last Admin: 05/02/18 21:19 Dose: 1 ea Morphine Sulfate (Morphine Sulfate) 2 mg IV Q30M PRN PRN Reason: Chest Pain Stop: 05/12/18 20:47 Nitroglycerin (Nitrostat) 0.4 mg SL UD PRN PRN Reason: Chest Pain Stop: 05/28/18 20:47 Ondansetron HCl (Zofran) 4 mg IV Q6H PRN PRN Reason: Nausea Stop: 05/28/18 20:47 Last Admin: 05/01/18 14:27 Dose: 4 mg Pantoprazole Sodium (Protonix) 40 mg PO DAILY [facility] Stop: 05/29/18 08:59 Last Admin: 05/02/18 08:18 Dose: 40 mg Polyethylene Glycol (Miralax Powder Packet) 17 gm PO DAILY PRN PRN Reason: Constipation Stop: 05/28/18 20:47 Last Admin: 04/30/18 20:47 Dose: 17 gm Prochlorperazine (Compazine) 10 mg PO Q6 PRN PRN Reason: Nausea Stop: 05/28/18 20:47 Tiotropium [place] (Spiriva) 1 puffs INH DAILY [facility] Stop: 05/29/18 08:59 Last Admin: 05/02/18 08:20 Dose: 1 puffs _ (1) Anemia Anemia type: unspecified type Bone marrow failure anemia type: Chronic kidney disease stage: Folate deficiency anemia type: Hemolytic anemia type: Iron deficiency anemia type: Other causes of anemia: Vitamin B12 deficiency anemia type: Qualified Code(s): D64.9 - Anemia, unspecified (2) A-fib Atrial fibrillation type: unspecified Qualified Code(s): I48.91 - Unspecified atrial fibrillation
[2018-05-03] MEDS: SODIUM BICARBONATE 8.4% 150 MEQ in DEXTROSE 5% 1,000 ML IV SCH (00:12)
[2018-05-03 06:31] LABS: Partial Thromboplastin Ratio 1.1
[2018-05-03 06:52] LABS: Albumin Level 2.2 gm/dl (3.4-5.0); BUN Creatinine Ratio 11.3 (10-20); Calcium 6.5 mg/dl (8.5-10.1); Creatinine Clr Calc Pharmacy 19.2 ml/min; Est GFR (African American) 28.6; Est GFR (Non-African American) 24.6; Phosphorus 2.6 mg/dl (2.5-4.9); Potassium 3.9 mmol/L (3.5-5.1)
[2018-05-03 07:32] LABS: Hematocrit (blood only) 24.4 % (37-47); Hemoglobin 7.8 g/dL (12.0-16.0); Mean Corpuscular Volume 104.7 fL (80-100); Mean Platelet Volume 9.4 fL (7.4-10.4); Platelet Count 204 K/uL (130-400); RDW Coefficient of Variation 17.6 % (11.5-14.5); RDW Standard Deviation 64.4 fL (36.4-46.3); Red Blood Count 2.33 M/uL (4.2-5.4); White Blood Count 5.94 K/uL (4.8-10.8)
--- NOTE | 2018-05-03 08:12 | Nephrology Progress Note ---
Date of Service May 03, 2018 Assessment & Plan (1) Hypomagnesemia: this has been corrected; though w/ the ctx she had may well recur -ordered to recheck in am (2) Anemia: not a procrit candidate unless dr Shaffer would approve - unlikely w/ this CA type -checked iron stores w/ am labs>> they are replete -defer transfusion pRBC if needed to primary service; not likely needed today and pt not sure she would accept (3) Chronic kidney disease (CKD): she has stage 3B CKD w/ eGFR generally in low 30s recently. very labile renal function this fall but baseline creatinine appears to be 1.4- 1.7; today she is 1.9, not technically meeting ROSEMARY criteria at least not yet. I suspect some of her ROSEMARY as outpatient late last month related to hypotension since her sbp was in 70-90s on 2 [facility] visits in March late; it generally runs in 120-140s. Her bp yesterday were in low 100s intermittently. HR reasonably controlled though labile at times. her calcium is low but corrects for her albumin -acidosis resolved; will stop bicarb gtt -renal u/s noted; no acute issues -repeat UACM w/o infection and w/ some inflammation >> could suggest interstitial nephritis; also concentrated -daily bmp -current meds/ electrolytes appropriate Subjective not sob; di dhave anxiety/restlessness overnight but finally got rest. for pfts this am. no edema or chest pain. no n/v/d/abd pain. no palpitatoins. no voiding c/o. no rash. no f/c or poor po. no focal numbness weakness; no acute vision change Physical Exam 2 Vital Signs (Past 24 Hours): Last Vital Signs Temp 36.8 C 05/03/18 07:21 Pulse 87 05/03/18 07:21 Resp 18 05/03/18 07:21 BP 124/76 05/03/18 07:21 Pulse Ox 97 05/03/18 07:21 Constitutional: well developed and well nourished; no acute distress ambulatory w/o asst on RA (had o2 intermittently ON) Eyes: EOM intact bilaterally ENMT: Ears: no external ear abnormality Nose: no external nose abnormality Mouth: + dry oral mucous membranes Neck: no nuchal rigidity Respiratory: normal respiratory effort Auscultation: + diminished lung sounds Cardiovascular: Rate/Rhythm: regular rate and regular rhythm Extremities: no edema (trace BL ankles) Gastrointestinal (Abdomen): Inspection/Auscultation: normal bowel sounds Percussion/Palpation: abdomen soft; abdomen nontender Musculoskeletal: Extremities: strength 5/5 throughout Skin: no rashes, warm and dry Neurologic: awake Speech / Cognition: normal cognition Motor/Sensory: normal movement Psychiatric: A+Ox3, euthymic affect Speech: normal rate/rhythm/volume of speech Genitourinary: no mendoza Results & Data Laboratory Results Abnormal lab results 05/02/18 05/02/18 05/03/18 Range/Units 16:42 20:23 05:45 RBC (4.2-5.4) M/uL Hgb (12.0-16.0) g/dL Hct (37-47) % MCV (80-100) fL RDW Std Deviation (36.4-46.3) fL RDW Coeff of Ilya (11.5-14.5) % Chloride 109 H (98-107) mmol/L BUN 21 H (7-18) mg/dl Creatinine 1.90 H (0.6-1.2) mg/dl Glucose 124 H (70-99) mg/dl POC Glucose 171 H 159 H (70-99) Calcium 6.5 L (8.5-10.1) mg/dl Albumin 2.2 L (3.4-5.0) gm/dl 05/03/18 Range/Units 05:54 RBC 2.33 L (4.2-5.4) M/uL Hgb 7.8 L (12.0-16.0) g/dL Hct 24.4 L (37-47) % MCV 104.7 H (80-100) fL RDW Std Deviation 64.4 H (36.4-46.3) fL RDW Coeff of Ilya 17.6 H (11.5-14.5) % Chloride (98-107) mmol/L BUN (7-18) mg/dl Creatinine (0.6-1.2) mg/dl Glucose (70-99) mg/dl POC Glucose (70-99) Calcium (8.5-10.1) mg/dl Albumin (3.4-5.0) gm/dl _ (1) Anemia Anemia type: unspecified type Bone marrow failure anemia type: Chronic kidney disease stage: Folate deficiency anemia type: Hemolytic anemia type: Iron deficiency anemia type: Other causes of anemia: Vitamin B12 deficiency anemia type: Qualified Code(s): D64.9 - Anemia, unspecified
[2018-05-03] MEDS: METOPROLOL TARTRATE 100 MG TAB PO SCH ×2 (08:19→20:50)
[2018-05-03] MEDS: BUDESONIDE/FORMOTEROL FUMARATE 160/4.5 60 PUFFS/INHALER INH SCH ×2 (08:19→20:49)
[2018-05-03] MEDS: TIOTROPIUM BROMIDE 5 PUFF/90 MCG INH INH SCH (08:19)
[2018-05-03] MEDS: AMOXICILLIN 250 MG CAP PO SCH ×2 (08:20→20:50)
[2018-05-03] MEDS: FOLIC ACID 1 MG TAB PO SCH (08:20)
[2018-05-03] MEDS: APIXABAN 2.5 MG TAB PO SCH ×2 (08:20→20:51)
[2018-05-03] MEDS: ASPIRIN 81 MG ECTAB PO SCH (08:20)
[2018-05-03] MEDS: dilTIAZem HCL 240 MG CAPCR PO SCH (08:20)
[2018-05-03] MEDS: PANTOprazole 40 MG TAB PO SCH (08:21)
[2018-05-03] MEDS: LIDOCAINE 5% 1 PATCH TD SCH (10:16)
[2018-05-03] MEDS ORDERED: ACETAMINOPHEN 325 MG TAB PO SCH (11:00)
--- NOTE | 2018-05-03 17:07 | Hospitalist Progress Note ---
Date of Service May 03, 2018 Assessment & Plan (1) Anemia: Macrocytic anemia noted on labs. Large drop in H&H in the last 6 months from to 8.8/27. She began chemotherapy in November 2017, and malignancy with chemotherapy is likely the cause of this anemia. There is no active bleeding at this time. In setting of h/o CAD, Cardio recommends keeping H/H above 8/25. Blood recommended bu the patient declined. Repeat CBC in am revealed persisted Hb<8. Two units transfused today. (2) ROSEMARY (acute kidney injury): Improved after bicarbonate and IVF, which was stopped. Nephro OK with discharge. (3) Nausea: resolved, poss was secondary to anemia? (4) A-fib: Cont Dilt PO, home Metoprolol, and new Eliquis per Cardiology. (5) Adenocarcinoma, lung: The patient was recently diagnosed in November 2017 and has been on chemotherapy with last dose on 04/01. She is scheduled to have surgery with Dr. Hickman at end of Apr. Cleared to proceed without further cardiac workup. (6) Diabetes mellitus, type II: At goal, cont current therapy. (7) HTN (hypertension): She takes amlodipine 5 mg p.o. every morning, metoprolol 100 p.o. twice daily as an outpatient. She is now on p.o. diltiazem for additional rate control. Cards did not adjust BB in setting of upcoming procedure (8) COPD (chronic obstructive pulmonary disease): Stable, no evidence of exacerbation. (9) Anxiety: PRN Lorazepam (10) CAD (coronary artery disease): She has a history of coronary artery disease status post PCI and Rotablator to the RCA in 1992 with residual nonobstructive disease of the LAD. She is medically managed with atorvastatin, aspirin, losartan and metoprolol. (11) DVT prophylaxis: Apixaban Code status -Full Dispo-likely DC to home in am pending repeat bloodwork in the morning. Sabiha Degroot DO [facility] Hospitalist Subjective -nausea resolved -tolerating PO without issue -receiving blood -ROS otherwise negative Physical Exam 2 Vital Signs (Past 24 Hours): Last Vital Signs Temp 36.7 C 05/03/18 15:18 Pulse 90 05/03/18 15:18 Resp 18 05/03/18 15:18 BP 113/71 05/03/18 15:18 Pulse Ox 94 05/03/18 16:00 CONSTITUTIONAL: WNWD, vitals as above, generally well-appearing EYES: normal conjuctivae, no scleral icterus RESPIRATORY: clear to auscultation bilaterally, no crackles, rales or wheezes, normal respiratory effort CARDIOVASCULAR: irregular rate and rhythm, S1 and 2 heard without murmurs, gallops or rubs, no JVD, no peripheral edema GASTROINTESTINAL: normal bowel sounds, soft, nontender, nondistended MUSCULOSKELETAL: strength 5/5 throughout, head is normocephalic and atraumatic SKIN: warm and dry NEUROLOGIC: CN 2-12 grossly intact PSYCHIATRIC: alert cooperative and oriented to person, place and time. Results & Data Laboratory Results Short CBC 05/03/18 Range/Units 05:54 WBC 5.94 (4.8-10.8) K/uL Hgb 7.8 L (12.0-16.0) g/dL Hct 24.4 L (37-47) % Plt Count 204 (130-400) K/uL BMP 05/03/18 05:45 Sodium 139 Potassium 3.9 Chloride 109 H Carbon Dioxide 23 BUN 21 H Creatinine 1.90 H Glucose 124 H Calcium 6.5 L Liver Function 05/03/18 Range/Units 05:45 Albumin 2.2 L (3.4-5.0) gm/dl _ (1) Anemia Anemia type: unspecified type Bone marrow failure anemia type: Chronic kidney disease stage: Folate deficiency anemia type: Hemolytic anemia type: Iron deficiency anemia type: Other causes of anemia: Vitamin B12 deficiency anemia type: Qualified Code(s): D64.9 - Anemia, unspecified (2) A-fib Atrial fibrillation type: unspecified Qualified Code(s): I48.91 - Unspecified atrial fibrillation
[2018-05-03] MEDS ORDERED: FUROSEMIDE 20 MG in SYRINGE 0 ML IV SCH (18:00)
--- NOTE | 2018-05-03 23:23 | Progress Note ---
DATE: 05/03/2018 Ms. Corona was seen today. She has oxygen on, on and off. She did not have it on earlier this morning when I saw her and she had it on later in the morning. She really has no complaints. The patient has agreed to do a blood transfusion now but she refused did yesterday. At this point, I am pleased with her. We are going to let her to be discharged when she is stable from the hospitalist standpoint. I will repeat her pulmonary functions today as her need for oxygen and her dyspnea is concerning.
[2018-05-04 06:34] LABS: Hematocrit (blood only) 32.6 % (37-47); Hemoglobin 10.8 g/dL (12.0-16.0); Mean Corpuscular Hgb Conc 33.1 g/dL (32-36); Mean Corpuscular Volume 96.2 fL (80-100); Mean Platelet Volume 9.3 fL (7.4-10.4); Nucleated RBC # (auto) 0.04 K/uL (0-0); Nucleated RBC % (auto) 0.7 %; Platelet Count 170 K/uL (130-400); RDW Standard Deviation 76.2 fL (36.4-46.3); Red Blood Count 3.39 M/uL (4.2-5.4); White Blood Count 6.05 K/uL (4.8-10.8)
[2018-05-04 07:01] LABS: Albumin Level 2.4 gm/dl (3.4-5.0); BUN Creatinine Ratio 11.7 (10-20); Calcium 6.7 mg/dl (8.5-10.1); Creatinine Clr Calc Pharmacy 20.9 ml/min; Est GFR (African American) 30.9; Est GFR (Non-African American) 26.7; Magnesium 1.7 mg/dl (1.8-2.4); Partial Thromboplastin Ratio 0.9; Partial Thromboplastin Time 23.5 Seconds (21.0-31.0); Phosphorus 2.1 mg/dl (2.5-4.9); Potassium 4.1 mmol/L (3.5-5.1)
--- NOTE | 2018-05-04 08:26 | Nephrology Progress Note ---
Date of Service May 04, 2018 Assessment & Plan (1) Hypomagnesemia: this has been corrected; though w/ the ctx she had may well recur -1.7 this am >> will start mag ox -cont to monitor daily (2) Anemia: not a procrit candidate unless dr Shaffer would approve - unlikely w/ this CA type -checked iron stores w/ am labs>> they are replete -on 05/03 got pRBC (3) Chronic kidney disease (CKD): she has stage 3B CKD w/ eGFR generally in low 30s recently. very labile renal function this fall but baseline creatinine appears to be 1.4- 1.7; today she is 1.8, not technically meeting ROSEMARY criteria at least not yet. I suspect some of her ROSEMARY as outpatient late last month related to hypotension since her sbp was in 70-90s on 2 [facility] visits in March late; it generally runs in 120-140s. Her bp yesterday were in low 100s intermittently. HR reasonably controlled though labile at times. her calcium is low but corrects for her albumin -hyperchloremic acidosis mild but persistent - monitor; off of IVF -renal u/s noted; no acute issues -repeat UACM w/o infection and w/ some inflammation >> could suggest interstitial nephritis; also concentrated -daily bmp -current meds/ electrolytes appropriate Subjective got pRBC and had lasix w/ it. Physical Exam 2 Vital Signs (Past 24 Hours): Last Vital Signs Temp 36.6 C 05/04/18 07:39 Pulse 96 H 05/04/18 07:39 Resp 16 05/04/18 07:39 BP 114/63 05/04/18 07:39 Pulse Ox 95 05/04/18 07:39 Constitutional: well developed and well nourished; no acute distress Eyes: EOM intact bilaterally ENMT: Ears: no external ear abnormality Nose: no external nose abnormality Mouth: + dry oral mucous membranes Neck: no nuchal rigidity Respiratory: normal respiratory effort Auscultation: + diminished lung sounds Cardiovascular: Rate/Rhythm: regular rate and regular rhythm Extremities: no edema (trace BL ankles) Gastrointestinal (Abdomen): Inspection/Auscultation: normal bowel sounds Percussion/Palpation: abdomen soft; abdomen nontender Musculoskeletal: Extremities: strength 5/5 throughout Skin: no rashes, warm and dry Neurologic: awake Speech / Cognition: normal cognition Motor/Sensory: normal movement Psychiatric: A+Ox3, euthymic affect Speech: normal rate/rhythm/volume of speech Results & Data Laboratory Results Abnormal lab results 05/03/18 05/03/18 05/03/18 Range/Units 07:38 11:19 11:38 RBC (4.2-5.4) M/uL Hgb (12.0-16.0) g/dL Hct (37-47) % RDW Std Deviation (36.4-46.3) fL RDW Coeff of Ilya (11.5-14.5) % Absolute Nucleated RBC (0-0) K/uL Chloride (98-107) mmol/L BUN (7-18) mg/dl Creatinine (0.6-1.2) mg/dl POC Glucose 127 H 108 H (70-99) Calcium (8.5-10.1) mg/dl Phosphorus (2.5-4.9) mg/dl Magnesium (1.8-2.4) mg/dl Albumin (3.4-5.0) gm/dl Crossmatch See Detail 05/03/18 05/03/18 05/04/18 Range/Units 16:28 20:01 06:04 RBC (4.2-5.4) M/uL Hgb (12.0-16.0) g/dL Hct (37-47) % RDW Std Deviation (36.4-46.3) fL RDW Coeff of Ilya (11.5-14.5) % Absolute Nucleated RBC (0-0) K/uL Chloride 110 H (98-107) mmol/L BUN 21 H (7-18) mg/dl Creatinine 1.78 H (0.6-1.2) mg/dl POC Glucose 130 H 113 H (70-99) Calcium 6.7 L (8.5-10.1) mg/dl Phosphorus 2.1 L (2.5-4.9) mg/dl Magnesium 1.7 L (1.8-2.4) mg/dl Albumin 2.4 L (3.4-5.0) gm/dl Crossmatch 05/04/18 05/04/18 Range/Units 06:04 07:30 RBC 3.39 L (4.2-5.4) M/uL Hgb 10.8 L D (12.0-16.0) g/dL Hct 32.6 L (37-47) % RDW Std Deviation 76.2 H (36.4-46.3) fL RDW Coeff of Ilya 23.0 H (11.5-14.5) % Absolute Nucleated RBC 0.04 H (0-0) K/uL Chloride (98-107) mmol/L BUN (7-18) mg/dl Creatinine (0.6-1.2) mg/dl POC Glucose 100 H (70-99) Calcium (8.5-10.1) mg/dl Phosphorus (2.5-4.9) mg/dl Magnesium (1.8-2.4) mg/dl Albumin (3.4-5.0) gm/dl Crossmatch _ (1) Anemia Anemia type: unspecified type Bone marrow failure anemia type: Chronic kidney disease stage: Folate deficiency anemia type: Hemolytic anemia type: Iron deficiency anemia type: Other causes of anemia: Vitamin B12 deficiency anemia type: Qualified Code(s): D64.9 - Anemia, unspecified
[2018-05-04] MEDS ORDERED: MAGNESIUM OXIDE 400 MG TAB PO SCH (09:00)
[2018-05-04] MEDS: AMOXICILLIN 250 MG CAP PO SCH (09:12)
[2018-05-04] MEDS: APIXABAN 2.5 MG TAB PO SCH (09:13)
[2018-05-04] MEDS: METOPROLOL TARTRATE 100 MG TAB PO SCH (09:13)
--- NOTE | 2018-05-04 09:13 | Discharge Summary ---
Date of Service May 04, 2018 Admission HPI Per Admitting Provider 78-year-old female with a past medical history of anemia, type 2 diabetes, hypertension, hyperlipidemia, pneumonia, COPD, GERD, adenocarcinoma of the lung , right upper lobe pulmonary nodule, anxiety, CAD, osteoporosis, who was at Dr. 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 1 of his RNs came in and said she has not had her heart checked in a while and performed an EKG. She was found to be in A. fib with rapid ventricular response and denies a history of A. fib. She was sent over to Dr. Lewis for an evaluation and he sent her to the emergency room where she was found to be in A. fib with rapid ventricular response in the low 100s. She will be seen by cardiology, and is on a Cardizem drip. She was supposed to see Dr. Hickman on 05/04 for a tumor resection in the lung. Admission Exam Per Admitting Provider ROS-No Headache, No Visual Changes, No Fever, No Chills, No Neck Pain or Stiffness, No Chest Pain, No Palpitations, No SOB, No ARSHAD, No Cough, No Sputum, No Wheezing, No Abdominal Pain, No Diarrhea, No Hematemesis, No Hemoptysis, No Unexpected Weight Loss, No Flank pain, No Melena, No Hematochezia, No Frequency , No Urgency, No Burning, No Hematuria, No Rashes, No Diaphoresis. Appetite is Normal Physical Exam Gen-AAO x 3, NAD, Afebrile Head-NCAT, EOMI, PERRLA, Anicteric Sclera, No Posterior Pharyngeal Erythema Neck-Supple, No JVD, No Thyromegaly, No Masses, No LAD, No Bruits Lungs-Clear to Auscultation Bilaterally, No Rales, No Rhonchi, No Wheezing, No Crepitus Chest-irregularly irregular, no S4, +S1, +S2, No S3, positive stock ejection murmur, loudest in the upper right sternal border, No Rubs, No Gallops, positive ectopy Abdomen-Soft, Bowel Sounds Present, Non Tender, Non Distended, No Hepatomegaly, No Splenomegaly, No Palpable Masses, No Rebound, No Rigidity, No Guarding Musculoskeletal-Full Range of Motion Bilaterally, No CVAT Extremities-No Cyanosis, No Clubbing, No Edema Nuero-Cranial Nerves II-XII grossly intact, Motor WNL, DTRs WNL, Strength WNL, No Focal Psych-Normal Mood Principal Diagnosis AFIB Acute on Chronic Renal Failure DVT HTN HLD COPD CAD GERD Lung Cancer-Adenocarcinoma Symptomatic Anemia Discharge Exam ROS-No Headache, No Visual Changes, No Fever, No Chills, No Neck Pain or Stiffness, No Chest Pain, No Palpitations, No SOB, No ARSHAD, No Cough, No Sputum, No Wheezing, No Abdominal Pain, No Diarrhea, No Hematemesis, No Hemoptysis, No Unexpected Weight Loss, No Flank pain, No Melena, No Hematochezia, No Frequency , No Urgency, No Burning, No Hematuria, No Rashes, No Diaphoresis. Appetite is Normal Physical Exam Gen-AAO x 3, NAD, Afebrile, Obese, Pleasant Head-NCAT, EOMI, PERRLA, Anicteric Sclera, No Posterior Pharyngeal Erythema Neck-Supple, No JVD, No Thyromegaly, No Masses, No LAD, No Bruits Lungs-Clear to Auscultation Bilaterally, No Rales, No Rhonchi, No Wheezing, No Crepitus Chest-Irreg, No S4, +S1, +S2, No S3, No Murmurs, No Rubs, No Gallops Abdomen-Soft, Bowel Sounds Present, Non Tender, Non Distended, No Hepatomegaly, No Splenomegaly, No Palpable Masses, No Rebound, No Rigidity, No Guarding Musculoskeletal-Full Range of Motion Bilaterally, No CVAT Extremities-No Cyanosis, No Clubbing, No Edema Nuero-Cranial Nerves II-XII grossly intact, Motor WNL, DTRs WNL, Strength WNL, No Focal Psych-Normal Mood Discharge Data Allergies Allergy/AdvReac Type Severity Reaction Status Date / Time lisinopril Allergy Intermediate RASH Verified 04/28/18 18:25 zolpidem AdvReac Severe hallucinati Verified 04/28/18 18:25 ons Consultations 04/28/18 17:55 ED Decision to Admit Stat 04/28/18 20:48 Consult Cardiology Routine 05/01/18 10:13 Consult Nephrology Routine 05/01/18 10:42 Consult Pulmonology Routine Ordered Studies 05/01/18 13:24 US renal/blad retro comp Routine Hospital Course (1) Anemia: Macrocytic anemia noted on labs. Large drop in H&H in the last 6 months from to 8.8/. She began chemotherapy in November 2017, and malignancy with chemotherapy is likely the cause of this anemia. There is no active bleeding at this time. In setting of h/o CAD, Cardio recommends keeping H/H above 8/25. Blood recommended but the patient declined. Repeat CBC in am revealed persisted Hb<8. Two units transfused 05/03. (2) ROSEMARY (acute kidney injury): Improved after bicarbonate and IVF, which was stopped. Nephro OK with discharge. (3) Nausea: resolved, poss was secondary to anemia? (4) A-fib: Cont Dilt PO, home Metoprolol, and new Eliquis per Cardiology. (5) Adenocarcinoma, lung: The patient was recently diagnosed in November 2017 and has been on chemotherapy with last dose on 04/01. She is scheduled to have surgery with Dr. Hickman at end of Apr. Cleared to proceed without further cardiac workup. (6) Diabetes mellitus, type II: At goal, cont current therapy. (7) HTN (hypertension): She takes amlodipine 5 mg p.o. every morning, metoprolol 100 p.o. twice daily as an outpatient. She is now on p.o. diltiazem for additional rate control. Cards did not adjust BB in setting of upcoming procedure. [facility] DCd on DC (8) COPD (chronic obstructive pulmonary disease): Stable, no evidence of exacerbation. (9) Anxiety: PRN Lorazepam (10) CAD (coronary artery disease): She has a history of coronary artery disease status post PCI and Rotablator to the RCA in 1992 with residual nonobstructive disease of the LAD. She is medically managed with atorvastatin, aspirin, losartan and metoprolol. (11) DVT prophylaxis: Apixaban Code status -Full Dispo-DC to home today and f/u with all Dr listed in DC Plan Total Time Total Time Spent Total Time Spent (In Minutes): 65 mins Total Time Includes: Examination of the Patient, Discharge Planning, Medication Reconciliation and Communication With Other Providers Discharge Plan Discharge Items Patient Disposition: Home - Self-Care Reason For Visit: AFIB RVR Discharge Diagnosis: Acute on Chronic Renal Failure AFIB DVT HTN HLD COPD CAD GERD Lung Cancer-Adenocarcinoma Symptomatic Anemia Discharge Goals: Improve disease control and Improve function Activity: Resume your previous activity Lifting: Gradually increase as tolerated Bathing: No limitations Sexual Activity: When tolerated Exercise/Sports: Gradually increase as tolerated Driving/Machine Use: No limitations Weightbearing: Left weightbearing and Right weightbearing Non-emergency contact: Primary Care Provider, Surgeon, Software Tools Build Engineer, Sas Clinical Programmer and Oncologist Call non-emergency contact if: you have any medication questions and your symptoms worsen Diet: Carb Consistent or DM2 and Heart Healthy Fluids: 1500ml (6 cups) Addtl Provider Instructions: Follow up Dr Lewis-Internal Medicine 1st opening Dr Arroyo-Cardiology 2-[address] Urbina-Nephrology 2-[address] Hickman-Thoracic Surgery 2-[address] Shaffer-Oncology 2-[address] Carolina-Pulmonary 1-2 weeks Prescriptions: New amoxicillin 250 mg Capsule 250 mg PO BID 10 Days Qty: 20 RF: 0 apixaban [Eliquis] 2.5 mg Tablet 2.5 mg PO BID 30 Days Qty: 60 RF: 0 polyethylene glycol 3350 [Miralax] 17 gram Powder In Packet 17 g PO DAILY PRN (Reason: Constipation) 30 Days Qty: 30 RF: 0 magnesium oxide 400 mg (241.3 mg magnesium) Tablet 400 mg PO BID 30 Days Qty: 60 RF: 0 lidocaine 5 % Adhesive Patch,Medicated 1 patch Transdermal DAILY Qty: 30 RF: 0 calcium carbonate 500 mg calcium (1,250 mg) capsule 500 mg PO QID Qty: 120 RF: 0 diltiazem HCl 240 mg Capsule,Extended Release 24hr 240 mg PO QAM Qty: 30 RF: 0 Continue metoprolol tartrate 100 mg Tablet 100 mg PO BID RF: 0 lorazepam 0.5 mg Tablet 0.5 mg PO HS PRN (Reason: Anxiety) RF: 0 aspirin [Ecotrin] 325 mg Tablet,Delayed Release (Dr/Ec) 325 mg PO QAM RF: 0 pantoprazole 40 mg Tablet,Delayed Release (Dr/Ec) 40 mg PO DAILY RF: 0 diphenhydramine HCl [Benadryl] 25 mg Capsule 25 mg PO HS PRN (Reason: Sleep) RF: 0 albuterol sulfate [Ventolin HFA] 90 mcg/actuation Hfa Aerosol Inhaler 1 puff INHALATION Q6H PRN (Reason: SOB) RF: 0 budesonide-formoterol [Symbicort] 160-4.5 mcg/actuation Hfa Aerosol Inhaler 2 puff INHALATION BID RF: 0 prochlorperazine maleate [Compazine] 10 mg Tablet 10 mg PO Q6 PRN (Reason: Nausea) RF: 0 ondansetron 8 mg Tablet,Disintegrating 8 mg PO TID PRN (Reason: Nausea) RF: 0 nitroglycerin 0.4 mg Tablet, Sublingual 0.4 mg Sublingual UD PRN (Reason: Chest Pain) RF: 0 tiotropium bromide [Spiriva Respimat] 2.5 mcg/actuation Mist 2 puff INHALATION DAILY RF: 0 hydrocodone-acetaminophen 5-325 mg Tablet 1 tab PO Q6H PRN (Reason: Pain) RF: 0 folic acid 1 mg Tablet 1 mg PO DAILY RF: 0 Discontinued amlodipine 5 mg Tablet 5 mg PO QAM RF: 0 Magic Swizzle 30 ml PO QID PRN (Reason: Pain) RF: 0 Visit Report Forms: [facility] Stand-Alone Forms: [facility] Discharge Orders: Discharge Order (Routine); Ordered 05/04/18 Ordered By: Molina Garcia Admission Data Admit Date/Time: 04/28/18 19:22 Attending Provider: Molina Garcia Admit Provider: Molina Garcia Primary Care Provider: Binu Lewis Other Providers: Molina Garcia ; Timothy Arroyo ; Tam Chambers ; Darrius Avalos ; Brian Zhang ; MacarioEliceo mckeon ; Enrique Laura ; Josselyn Donaldson ; Alea Healy ; Pamela Easton ; Calri Carolina Sabrina M Service: Medical Other Pending Studies at Discharge: No
[2018-05-04] MEDS: PANTOprazole 40 MG TAB PO SCH (09:14)
[2018-05-04] MEDS: FOLIC ACID 1 MG TAB PO SCH (09:14)
[2018-05-04] MEDS: ASPIRIN 81 MG ECTAB PO SCH (09:14)
[2018-05-04] MEDS: TIOTROPIUM BROMIDE 5 PUFF/90 MCG INH INH SCH (09:15)
[2018-05-04] MEDS: dilTIAZem HCL 240 MG CAPCR PO SCH (09:15)
[2018-05-04] MEDS: LIDOCAINE 5% 1 PATCH TD SCH (09:17)
[2018-05-04] MEDS: BUDESONIDE/FORMOTEROL FUMARATE 160/4.5 60 PUFFS/INHALER INH SCH (09:17)
--- NOTE | 2018-05-04 19:51 | Progress Note ---
DATE: 05/04/2018 Ms. Corona was seen today. She is stable. She is still requiring some oxygen. I reviewed her pulmonary functions done yesterday and there has been a significant worsening over the last 6 months. Her DLCO was now only 36% of predicted and her FEV1 is only 54% of predicted. I am going to see her back in the office. I hope that she improves. At this point, I may offer her a segmentectomy, but I will have to discuss this with the patient and her family in the office. I do not believe this woman is a candidate for full lobectomy. BRO
--- NOTE | 2018-05-05 09:08 | Pulmonary Function Test ---
Spirometry shows a mild reduction in forced vital capacity and a moderate reduction in FEV1. The pattern is that of mild to moderate obstruction with an inability to exclude coexistent restriction. Repeat study done following bronchodilator showed no change in function. Diffusion capacity is severely reduced at 36% of predicted. Advise clinical correlation.
== END 2018-05-04 11:20 | disposition home or self-care (01) | DRG 309 ==
LOC: ED 15:35 → 2S 19:22 → SUATTDRO 19:22 → 2S 20:30 → 4E 05-01 12:56
DX: Z92.3 Personal history of irradiation; C34.11 Malignant neoplasm of upper lobe, right bronchus or lung; F41.9 Anxiety disorder, unspecified; J44.9 Chronic obstructive pulmonary disease, unspecified; Z79.82 Long term (current) use of aspirin; K21.9 Gastro-esophageal reflux disease without esophagitis; Z80.0 Family history of malignant neoplasm of digestive organs; N18.3 Chronic kidney disease, stage 3 (moderate); E83.42 Hypomagnesemia; I25.10 Atherosclerotic heart disease of native coronary artery without angina pectoris; M19.90 Unspecified osteoarthritis, unspecified site; Z87.891 Personal history of nicotine dependence; I25.2 Old myocardial infarction; I48.91 Unspecified atrial fibrillation; Z82.49 Family history of ischemic heart disease and other diseases of the circulatory system; D53.9 Nutritional anemia, unspecified; Z88.8 Allergy status to other drugs, medicaments and biological substances; N17.9 Acute kidney failure, unspecified; E11.9 Type 2 diabetes mellitus without complications; I12.9 Hypertensive chronic kidney disease with stage 1 through stage 4 chronic kidney disease, or unspecified chronic kidney disease; E78.5 Hyperlipidemia, unspecified

== ENCOUNTER 2018-07-10 17:29 | Inpatient (IN) ==
[2018-07-10 17:57] LABS: Basophils # (auto) 0.03 K/uL (0-0.2); Basophils % (auto) 0.4 %; Eosinophils # (auto) 0.09 K/uL (0-0.5); Eosinophils % (auto) 1.1 %; Hematocrit (blood only) 36.3 % (37-47); Hemoglobin 11.6 g/dL (12.0-16.0); Immature Granulocytes # (auto) 0.04 K/uL (0.00-0.02); Immature Granulocytes % (auto) 0.5 %; Lymphocytes % (auto) 26.1 %; Mean Corpuscular Volume 103.7 fL (80-100); Mean Platelet Volume 9.9 fL (7.4-10.4); Monocytes # (auto) 0.79 K/uL (0.11-0.59); Monocytes % (auto) 9.8 %; Neutrophils # (auto) 5.01 K/uL (1.4-6.5); Neutrophils % (auto) 62.1 %; Platelet Count 171 K/uL (130-400); RDW Coefficient of Variation 14.9 % (11.5-14.5); RDW Standard Deviation 56.5 fL (36.4-46.3); White Blood Count 8.06 K/uL (4.8-10.8)
[2018-07-10 18:08] LABS: INR 1.1 (0.9-1.1); Partial Thromboplastin Ratio 0.9; Partial Thromboplastin Time 23.2 Seconds (21.0-31.0); Prothrombin Time 11.4 Seconds (9.0-12.0)
[2018-07-10 18:14] LABS: Alanine Aminotransferase 76 U/L (12-78); Albumin Level 3.1 gm/dl (3.4-5.0); Aspartate Aminotransferase 171 U/L (15-37); BUN Creatinine Ratio 16.8 (10-20); Blood Urea Nitrogen 30 mg/dl (7-18); Calcium 8.9 mg/dl (8.5-10.1); Carbon Dioxide 31 mmol/L (21-32); Chloride 101 mmol/L (98-107); Est GFR (African American) 30.3; Est GFR (Non-African American) 26.1; Glucose 143 mg/dl (70-99); Magnesium 2.8 mg/dl (1.8-2.4); Potassium 4.3 mmol/L (3.5-5.1); Sodium 139 mmol/L (136-145)
--- NOTE | 2018-07-10 18:20 | XRay Report ---
XR chest 1V portable CLINICAL HISTORY: Atypical chest pain COMPARISON STUDY: 07/08/2018 FINDINGS: The heart remains enlarged. There are persistent bilateral pleural effusions with associate d basilar airspace opacities, likely representing compressive atelectasis. Mild central pulmonary vas cular congestion remain similar.[ IMPRESSION: No significant change from the prior study. Stable cardiomegaly with bilateral pleural ef fusions with associated basilar airspace opacities. Mild central pulmonary vascular congestion. Electronically signed by: Theo Traore M.D. 07/10/2018 6:19 PM
[2018-07-10 18:25] LABS: Albumin Globulin Ratio 0.8 (0.9-2); Alkaline Phosphatase 148 U/L (45-117); Bilirubin,Total 0.5 mg/dl (0.2-1); Globulin 3.9 gm/dl (2.5-4.0); Troponin I 0.016 ng/ml (0-0.045)
[2018-07-10] MEDS ORDERED: ASPIRIN CHEW 324 MG PO STA (18:59)
[2018-07-10] MEDS ORDERED: SODIUM CHLORIDE 0.9% 1000ML 500 ML IV ONE (18:59)
--- NOTE | 2018-07-10 19:02 | Emergency Department Note ---
Entered by Miah Steve acting as a scribe for Km Nowak DO History of Present Illness General Chief complaint: Chest Pain Stated complaint: DIZZINESS, NAUSEA Source: patient Mode of arrival: ambulatory History of Present Illness Provider complaint: Chest Pain Location: chest Maximum Pain Intensity: 5 Current Pain Intensity: 5 Quality: + other (Chest Pain ) Exacerbated By: + none Associated symptoms: no nausea/vomiting Patient is a 78 year old female who presents herself to the ER with complains of chest pain which started at 4:40pm. She states her chest started hurting while standing as well as becoming dizzy. She notes she has been getting dizzy upon getting up and that she is on oxygen 16/11. She notes nothing has been making the pain better or worse. Patient reports having a history of irregular heartbeat. She reports her pain at a value of 5 on the pain intensity scale. She reports having COPD and has been a smoker in the past. She denies nausea and vomiting. Home Medications Home Medications Medication Instructions Recorded Confirmed Type Symbicort 2 puff INHALATION BID 04/21/18 07/10/18 History albuterol sulfate [Ventolin HFA] 1 puff INHALATION Q6H PRN 04/21/18 07/10/18 History lorazepam 0.5 mg PO HS PRN 04/21/18 07/10/18 History metoprolol tartrate 100 mg PO BID 04/21/18 07/10/18 History pantoprazole 40 mg PO DAILY 04/21/18 07/10/18 History Spiriva Respimat 2 puff INHALATION DAILY 04/28/18 07/10/18 History folic acid 1 mg PO DAILY 04/28/18 07/10/18 History nitroglycerin 0.4 mg SUBLINGUAL UD PRN 04/28/18 07/10/18 History lidocaine 1 patch TRANSDERMAL DAILY #30 ea 05/04/18 07/10/18 Rx tramadol [Ultram] 50 mg PO QID PRN #18 tab 05/18/18 07/10/18 Rx apixaban [Eliquis] 2.5 mg PO BID 07/10/18 07/10/18 History aspirin [Aspirin Low Dose] 81 mg PO DAILY 07/10/18 07/10/18 History diltiazem HCl 360 mg PO DAILY 07/10/18 07/10/18 History docusate sodium [Colace] 100 mg PO BID 07/10/18 07/10/18 History hydrocodone-acetaminophen 1 tab PO QID PRN 07/10/18 07/10/18 History magnesium oxide 400 mg PO BID 07/10/18 07/10/18 History ondansetron HCl [Zofran] 8 mg PO TID PRN 07/10/18 07/10/18 History Allergies Allergy/AdvReac Type Severity Reaction Status Date / Time lisinopril Allergy Intermediate RASH Verified 07/10/18 18:25 zolpidem AdvReac Severe hallucinati Verified 07/10/18 18:25 ons Past Med/Surg History Medical History Anemia Cancer LUNG CANCER S/P RECENT CHEMO (COMPLETED 04/01/18) Chronic obstructive pulmonary disease GERD (gastroesophageal reflux disease) Hiatal hernia Hyperlipidemia Hypertension Myocardial Infarction 1992= MEDICAL MANAGEMENT Osteoarthritis Osteoporosis Surgical History History of adenoidectomy History of appendectomy History of arthroscopy RIGHT KNEE History of cardiac cath 1992= NO STENTS History of cataract surgery BILATERAL History of section X4 History of colonoscopy History of hysterectomy JOSE WITH BSO History of lung surgery NAVIGATIONAL BRONCH/EBUS= 11/09/17= GRADE I VIEW, MAC 3, ETT 8.0 AT [facility] History of tonsillectomy History of tooth extraction Family History Grandfather (Paternal) Family hx of colon cancer Social History Preferred Language: [place] Communication Ability: Effective Box Person Required: No Beliefs That Will Affect Care: None Current Living Situation: Family Current Living Situation Comment: HAS A DISABLED SON LIVING WITH HER PLUS NURSING CARE POST OP Other Information That Helps Us Care for You: Yes Feels Safe at Home: Yes Safety Concerns: Feels Safe At This Time Smoking Status: Former smoker Hx Alcohol Use: No Hx Substance Use: No Review of Systems See HPI for pertinent positives & negatives. and A total of 10 systems reviewed and were otherwise negative Physical Exam Vital Signs Vital Signs - 24 hr 07/10/18 17:30 07/10/18 17:32 07/10/18 17:38 Temperature 36.7 C Temperature Source Oral Sepsis Recent Fever Within 48 Hours No Sepsis Action Taken by Nursing No Action Required Pulse Rate 48 L 44 L 43 L Pulse Rate [Left Finger] Pulse Rate from SpO2 Sensor 44 L Pulse Rhythm [Left Finger] Pulse Strength [Left Finger] Respiratory Rate 16 17 27 H Respiratory Effort / Characteristics Non-Labored Respiratory Depth Normal Respiratory Pattern Blood Pressure 124/55 L 124/55 L Blood Pressure [Left Arm] Blood Pressure [Right Arm] Blood Pressure Mean 78 78 Blood Pressure Mean [Left Arm] Blood Pressure Mean [Right Arm] Blood Pressure Position [Left Arm] Blood Pressure Position [Right Arm] Pulse Oximetry 94 95 Oxygen Delivery Method Nasal Cannula Oxygen Flow Rate 3 Fraction of Inspired Oxygen SaO2/FiO2 Ratio 07/10/18 17:40 07/10/18 17:48 07/10/18 17:50 Temperature Temperature Source Sepsis Recent Fever Within 48 Hours Sepsis Action Taken by Nursing Pulse Rate 64 76 Pulse Rate [Left Finger] Pulse Rate from SpO2 Sensor Pulse Rhythm [Left Finger] Pulse Strength [Left Finger] Respiratory Rate 22 28 H Respiratory Effort / Characteristics Respiratory Depth Respiratory Pattern Blood Pressure Blood Pressure [Left Arm] Blood Pressure [Right Arm] Blood Pressure Mean Blood Pressure Mean [Left Arm] Blood Pressure Mean [Right Arm] Blood Pressure Position [Left Arm] Blood Pressure Position [Right Arm] Pulse Oximetry Oxygen Delivery Method Room Air Oxygen Flow Rate Fraction of Inspired Oxygen SaO2/FiO2 Ratio 07/10/18 18:00 07/10/18 18:10 07/10/18 18:20 Temperature Temperature Source Sepsis Recent Fever Within 48 Hours Sepsis Action Taken by Nursing Pulse Rate 45 L Pulse Rate [Left Finger] Pulse Rate from SpO2 Sensor Pulse Rhythm [Left Finger] Pulse Strength [Left Finger] Respiratory Rate 20 23 23 Respiratory Effort / Characteristics Respiratory Depth Respiratory Pattern Blood Pressure Blood Pressure [Left Arm] Blood Pressure [Right Arm] Blood Pressure Mean Blood Pressure Mean [Left Arm] Blood Pressure Mean [Right Arm] Blood Pressure Position [Left Arm] Blood Pressure Position [Right Arm] Pulse Oximetry Oxygen Delivery Method Oxygen Flow Rate Fraction of Inspired Oxygen SaO2/FiO2 Ratio 07/10/18 18:30 07/10/18 18:40 07/10/18 18:42 Temperature Temperature Source Sepsis Recent Fever Within 48 Hours Sepsis Action Taken by Nursing Pulse Rate 83 Pulse Rate [Left Finger] Pulse Rate from SpO2 Sensor 60 Pulse Rhythm [Left Finger] Pulse Strength [Left Finger] Respiratory Rate 20 16 17 Respiratory Effort / Characteristics Respiratory Depth Respiratory Pattern Blood Pressure 129/65 Blood Pressure [Left Arm] Blood Pressure [Right Arm] Blood Pressure Mean 86 Blood Pressure Mean [Left Arm] Blood Pressure Mean [Right Arm] Blood Pressure Position [Left Arm] Blood Pressure Position [Right Arm] Pulse Oximetry 96 Oxygen Delivery Method Oxygen Flow Rate Fraction of Inspired Oxygen SaO2/FiO2 Ratio 07/10/18 18:50 07/10/18 19:25 07/10/18 20:36 Temperature Temperature Source Sepsis Recent Fever Within 48 Hours Sepsis Action Taken by Nursing Pulse Rate 55 L Pulse Rate [Left Finger] 71 75 Pulse Rate from SpO2 Sensor 66 Pulse Rhythm [Left Finger] Regular Regular Pulse Strength [Left Finger] Normal Normal Respiratory Rate 22 18 18 Respiratory Effort / Characteristics Non-Labored Non-Labored Respiratory Depth Normal Normal Respiratory Pattern Regular Regular Blood Pressure Blood Pressure [Left Arm] Blood Pressure [Right Arm] 142/76 H 126/83 Blood Pressure Mean Blood Pressure Mean [Left Arm] Blood Pressure Mean [Right Arm] 98 97 Blood Pressure Position [Left Arm] Blood Pressure Position [Right Arm] Sitting Pulse Oximetry 95 92 94 Oxygen Delivery Method Nasal Cannula Nasal Cannula Oxygen Flow Rate 3 Fraction of Inspired Oxygen SaO2/FiO2 Ratio 07/10/18 21:30 07/10/18 21:51 07/10/18 23:23 Temperature 36.2 C L 36.7 C Temperature Source Oral Oral Sepsis Recent Fever Within 48 Hours Sepsis Action Taken by Nursing Pulse Rate Pulse Rate [Left Finger] 78 79 Pulse Rate from SpO2 Sensor Pulse Rhythm [Left Finger] Regular Pulse Strength [Left Finger] Normal Respiratory Rate 20 17 Respiratory Effort / Characteristics Non-Labored Spontaneous Non-Labored Spontaneous Respiratory Depth Normal Normal Respiratory Pattern Agonal Agonal Blood Pressure Blood Pressure [Left Arm] Blood Pressure [Right Arm] 136/69 139/67 Blood Pressure Mean Blood Pressure Mean [Left Arm] Blood Pressure Mean [Right Arm] 91 91 Blood Pressure Position [Left Arm] Blood Pressure Position [Right Arm] Lying Lying Pulse Oximetry 4 L 96 Oxygen Delivery Method Nasal Cannula Nasal Cannula Nasal Cannula Oxygen Flow Rate 3 3 Fraction of Inspired Oxygen 93 SaO2/FiO2 Ratio 4 07/10/18 23:25 07/11/18 03:02 07/11/18 07:45 Temperature 36.3 C L 36.4 C L Temperature Source Oral Oral Sepsis Recent Fever Within 48 Hours Sepsis Action Taken by Nursing Pulse Rate 78 Pulse Rate [Left Finger] 81 105 H Pulse Rate from SpO2 Sensor Pulse Rhythm [Left Finger] Pulse Strength [Left Finger] Respiratory Rate 17 20 Respiratory Effort / Characteristics Respiratory Depth Respiratory Pattern Blood Pressure Blood Pressure [Left Arm] Blood Pressure [Right Arm] 121/64 159/72 H Blood Pressure Mean Blood Pressure Mean [Left Arm] Blood Pressure Mean [Right Arm] 83 101 Blood Pressure Position [Left Arm] Blood Pressure Position [Right Arm] Lying Sitting Pulse Oximetry 94 95 Oxygen Delivery Method Nasal Cannula Nasal Cannula Oxygen Flow Rate 3 3 Fraction of Inspired Oxygen SaO2/FiO2 Ratio 07/11/18 08:48 07/11/18 10:41 Temperature 36.6 C Temperature Source Oral Sepsis Recent Fever Within 48 Hours Sepsis Action Taken by Nursing Pulse Rate Pulse Rate [Left Finger] 111 H Pulse Rate from SpO2 Sensor Pulse Rhythm [Left Finger] Pulse Strength [Left Finger] Respiratory Rate 19 Respiratory Effort / Characteristics Non-Labored Spontaneous Respiratory Depth Normal Respiratory Pattern Regular Blood Pressure Blood Pressure [Left Arm] 135/86 Blood Pressure [Right Arm] Blood Pressure Mean Blood Pressure Mean [Left Arm] 102 Blood Pressure Mean [Right Arm] Blood Pressure Position [Left Arm] Sitting Blood Pressure Position [Right Arm] Pulse Oximetry 96 Oxygen Delivery Method Nasal Cannula Nasal Cannula Oxygen Flow Rate 3 3 Fraction of Inspired Oxygen SaO2/FiO2 Ratio GENERAL: Patient is awake alert in no acute distress patient is resting comfortably and showing no signs of anxiety EYES: The conjunctivae are clear. The pupils are round and reactive. EARS, NOSE, MOUTH AND THROAT: The nose is without any evidence of any deformity. Mucous membranes are moist tongue is midline NECK: The neck is nontender and supple. RESPIRATORY: Diminished breath sounds were noted throughout. There is scattered rales at both bases. CARDIOVASCULAR: Bradycardic rate with regular rhythm was noted. No definite murmur was appreciated. GASTROINTESTINAL: The abdomen is soft. Bowel sounds are present in all quadrants. Abdomen is nontender MUSCULOSKELETAL/EXTREMITIES: There is no evidence of gross deformity full range of motion is noted in the hips and shoulders SKIN: There is no obvious evidence of any rash. Pedal edema was noted bilaterally.. NEUROLOGIC: Patient is awake alert and oriented x3. Course 1744: Past medical records reviewed. The patient was evaluated in room C4, and a complete history and physical examination were performed. 1900: I administered aspirin to the patient. 0: The patient will be admitted under the care of K[facility] Ruiz, [facility]. Patient has verbalized agreement to the treatment plan. Consultations Consultation #1: KATE Ruiz, Hospitalist Time: 19:20 Administered Medications Apixaban (Eliquis) 2.5 mg PO BID STEFAN Stop: 08/09/18 22:18 Last Admin: 07/11/18 09:53 Dose: 2.5 mg Documented by: [id number] Admin: 07/10/18 23:37 Dose: 2.5 mg Documented by: [id number] Aspirin (Ecotrin Ectab) 81 mg PO DAILY STEFAN Stop: 08/10/18 08:59 Last Admin: 07/11/18 09:55 Dose: 81 mg Documented by: [id number] Budesonide/Formoterol Fumarate (Symbicort 160mcg/4.5mcg) 2 puffs INH BID STEFAN Stop: 08/09/18 22:18 Last Admin: 07/11/18 09:54 Dose: 2 puffs Documented by: [id number] Admin: 07/10/18 23:36 Dose: 2 puffs Documented by: [id number] Docusate Sodium (Colace) 100 mg PO BID STEFAN Stop: 08/09/18 22:59 Last Admin: 07/11/18 09:55 Dose: 100 mg Documented by: [id number] Admin: 07/10/18 23:49 Dose: Not Given Documented by: [id number] Folic Acid (Folvite) 1 mg PO DAILY STEFAN Stop: 08/10/18 08:59 Last Admin: 07/11/18 09:56 Dose: 1 mg Documented by: [id number] Lidocaine (Lidoderm 5%) 1 patch TD DAILY STEFAN Stop: 08/10/18 08:59 Last Admin: 07/11/18 09:55 Dose: Not Given Documented by: [id number] Miscellaneous (Remove Lidoderm Patch) 1 ea N/A DAILY@2100 STEFAN Stop: 08/09/18 22:18 Last Admin: 07/10/18 23:49 Dose: Not Given Documented by: [id number] Pantoprazole Sodium (Protonix) 40 mg PO DAILY STEFAN Stop: 08/10/18 08:59 Last Admin: 07/11/18 09:55 Dose: 40 mg Documented by: [id number] Tiotropium [place] (Spiriva) 1 puffs INH DAILY STEFAN Stop: 08/10/18 08:59 Last Admin: 07/11/18 09:56 Dose: 1 puffs Documented by: [id number] Discontinued Medications Aspirin (Aspirin) 324 mg PO NOW STA Stop: 07/10/18 19:00 Last Admin: 07/10/18 19:21 Dose: 324 mg Documented by: [id number] Diphenhydramine HCl (Benadryl Capsule) 25 mg PO NOW ONE Stop: 07/10/18 23:57 Last Admin: 07/11/18 00:02 Dose: 25 mg Documented by: [id number] Sodium Chloride (Nss 1000ml) 500 mls @ 999 mls/hr IV .Q31M ONE Stop: 07/10/18 19:29 Last Infusion: 07/10/18 20:37 Dose: 0 mls/hr Documented by: [id number] Admin: 07/10/18 19:21 Dose: 999 mls/hr Documented by: [id number] Furosemide 20 mg/ Syringe 2 mls @ 4 mls/min IV ONE ONE Stop: 07/10/18 23:01 Last Admin: 07/10/18 23:38 Dose: 4 mls/min Documented by: [id number] Medical Decision Making Differential Diagnosis I considered multiple diagnoses including myocardial infarction, chest wall pain, pericarditis, myocarditis, aortic emergencies, pulmonary embolism, congestive heart failure, GI causes, and other significant cardiopulmonary disorders. Medical Records Attestation: I reviewed the patient's medical records. Home Medications Current Medication List: was personally reviewed by me Laboratory Data Attestation: I reviewed the patient's lab results. Result diagrams: 07/11/18 04:25 07/11/18 04:25 Lab Results 07/10/18 07/10/18 07/10/18 Range/Units 17:43 17:43 17:43 WBC 8.06 (4.8-10.8) K/uL RBC 3.50 L (4.2-5.4) M/uL Hgb 11.6 L (12.0-16.0) g/dL Hct 36.3 L (37-47) % MCV 103.7 H (80-100) fL MCH 33.1 (25-34) pg MCHC 32.0 (32-36) g/dL RDW Std Deviation 56.5 H (36.4-46.3) fL RDW Coeff of Ilya 14.9 H (11.5-14.5) % Plt Count 171 (130-400) K/uL MPV 9.9 (7.4-10.4) fL Immature Gran % (Auto) 0.5 % Neut % (Auto) 62.1 % Lymph % (Auto) 26.1 % Mcculloch % (Auto) 9.8 % Eos % (Auto) 1.1 % Baso % (Auto) 0.4 % Immature Gran # (Auto) 0.04 H (0.00-0.02) K/uL Neut # (Auto) 5.01 (1.4-6.5) K/uL Lymph # (Auto) 2.10 (1.2-3.4) K/uL Mcculloch # (Auto) 0.79 H (0.11-0.59) K/uL Eos # (Auto) 0.09 (0-0.5) K/uL Baso # (Auto) 0.03 (0-0.2) K/uL PT 11.4 (9.0-12.0) Seconds INR 1.1 (0.9-1.1) APTT 23.2 (21.0-31.0) Seconds PTT Ratio 0.9 Sodium 139 (136-145) mmol/L Potassium 4.3 (3.5-5.1) mmol/L Chloride 101 (98-107) mmol/L Carbon Dioxide 31 (21-32) mmol/L Anion Gap 7.0 (3-11) BUN 30 H (7-18) mg/dl Creatinine 1.81 H (0.6-1.2) mg/dl Est Cr Clr Drug Dosing Not Reportable Est GFR ( Amer) 30.3 Est GFR (Non-Af Amer) 26.1 BUN/Creatinine Ratio 16.8 (10-20) Glucose 143 H (70-99) mg/dl POC Glucose (70-99) Estimat Average Glucose mg/dl Hemoglobin A1c (4.5-5.6) % Calcium 8.9 (8.5-10.1) mg/dl Magnesium 2.8 H (1.8-2.4) mg/dl Total Bilirubin 0.5 (0.2-1) mg/dl AST 171 H (15-37) U/L ALT 76 (12-78) U/L Alkaline Phosphatase 148 H (45-117) U/L Troponin I 0.016 (0-0.045) ng/ml Total Protein 7.0 (6.4-8.2) gm/dl Albumin 3.1 L (3.4-5.0) gm/dl Globulin 3.9 (2.5-4.0) gm/dl Albumin/Globulin Ratio 0.8 L (0.9-2) Lipase 189 (73-393) U/L TSH 3.140 (0.300-4.500) uIu/ml 07/10/18 07/10/18 07/11/18 Range/Units 21:48 22:44 04:25 WBC (4.8-10.8) K/uL RBC (4.2-5.4) M/uL Hgb (12.0-16.0) g/dL Hct (37-47) % MCV (80-100) fL MCH (25-34) pg MCHC (32-36) g/dL RDW Std Deviation (36.4-46.3) fL RDW Coeff of Ilya (11.5-14.5) % Plt Count (130-400) K/uL MPV (7.4-10.4) fL Immature Gran % (Auto) % Neut % (Auto) % Lymph % (Auto) % Mcculloch % (Auto) % Eos % (Auto) % Baso % (Auto) % Immature Gran # (Auto) (0.00-0.02) K/uL Neut # (Auto) (1.4-6.5) K/uL Lymph # (Auto) (1.2-3.4) K/uL Mcculloch # (Auto) (0.11-0.59) K/uL Eos # (Auto) (0-0.5) K/uL Baso # (Auto) (0-0.2) K/uL PT (9.0-12.0) Seconds INR (0.9-1.1) APTT (21.0-31.0) Seconds PTT Ratio Sodium (136-145) mmol/L Potassium (3.5-5.1) mmol/L Chloride (98-107) mmol/L Carbon Dioxide (21-32) mmol/L Anion Gap (3-11) BUN (7-18) mg/dl Creatinine (0.6-1.2) mg/dl Est Cr Clr Drug Dosing Est GFR ( Amer) Est GFR (Non-Af Amer) BUN/Creatinine Ratio (10-20) Glucose (70-99) mg/dl POC Glucose 105 H (70-99) Estimat Average Glucose 126 mg/dl Hemoglobin A1c 6.0 H (4.5-5.6) % Calcium (8.5-10.1) mg/dl Magnesium (1.8-2.4) mg/dl Total Bilirubin (0.2-1) mg/dl AST (15-37) U/L ALT (12-78) U/L Alkaline Phosphatase (45-117) U/L Troponin I < 0.015 (0-0.045) ng/ml Total Protein (6.4-8.2) gm/dl Albumin (3.4-5.0) gm/dl Globulin (2.5-4.0) gm/dl Albumin/Globulin Ratio (0.9-2) Lipase (73-393) U/L TSH (0.300-4.500) uIu/ml 07/11/18 07/11/18 07/11/18 Range/Units 04:25 04:25 10:15 WBC 5.32 (4.8-10.8) K/uL RBC 3.36 L (4.2-5.4) M/uL Hgb 11.2 L (12.0-16.0) g/dL Hct 34.0 L (37-47) % MCV 101.2 H (80-100) fL MCH 33.3 (25-34) pg MCHC 32.9 (32-36) g/dL RDW Std Deviation 55.0 H (36.4-46.3) fL RDW Coeff of Ilya 14.8 H (11.5-14.5) % Plt Count 153 (130-400) K/uL MPV 9.7 (7.4-10.4) fL Immature Gran % (Auto) 0.6 % Neut % (Auto) 50.1 % Lymph % (Auto) 39.5 % Mcculloch % (Auto) 7.9 % Eos % (Auto) 1.5 % Baso % (Auto) 0.4 % Immature Gran # (Auto) 0.03 H (0.00-0.02) K/uL Neut # (Auto) 2.67 (1.4-6.5) K/uL Lymph # (Auto) 2.10 (1.2-3.4) K/uL Mcculloch # (Auto) 0.42 (0.11-0.59) K/uL Eos # (Auto) 0.08 (0-0.5) K/uL Baso # (Auto) 0.02 (0-0.2) K/uL PT (9.0-12.0) Seconds INR (0.9-1.1) APTT (21.0-31.0) Seconds PTT Ratio Sodium 141 (136-145) mmol/L Potassium 3.7 (3.5-5.1) mmol/L Chloride 102 (98-107) mmol/L Carbon Dioxide 33 H (21-32) mmol/L Anion Gap 6.0 (3-11) BUN 30 H (7-18) mg/dl Creatinine 1.67 H (0.6-1.2) mg/dl Est Cr Clr Drug Dosing 20.0 Est GFR ( Amer) 33.4 Est GFR (Non-Af Amer) 28.8 BUN/Creatinine Ratio 18.1 (10-20) Glucose 111 H (70-99) mg/dl POC Glucose (70-99) Estimat Average Glucose mg/dl Hemoglobin A1c (4.5-5.6) % Calcium 8.7 (8.5-10.1) mg/dl Magnesium 2.7 H (1.8-2.4) mg/dl Total Bilirubin (0.2-1) mg/dl AST (15-37) U/L ALT (12-78) U/L Alkaline Phosphatase (45-117) U/L Troponin I 0.017 < 0.015 (0-0.045) ng/ml Total Protein (6.4-8.2) gm/dl Albumin (3.4-5.0) gm/dl Globulin (2.5-4.0) gm/dl Albumin/Globulin Ratio (0.9-2) Lipase (73-393) U/L TSH (0.300-4.500) uIu/ml Imaging Data Attestation: I personally reviewed and interpreted this imaging study as maria alejandra ws: Radiologist's Impression: Radiology results as stated below per my review and the radiologist's interpretation: XR chest 1V portable CLINICAL HISTORY: Atypical chest pain COMPARISON STUDY: 07/08/2018 FINDINGS: The heart remains enlarged. There are persistent bilateral pleural effusions with associated basilar airspace opacities, likely representing c ompressive atelectasis. Mild central pulmonary vascular congestion remain similar.[ IMPRESSION: No significant change from the prior study. Stable cardiomegaly with bilateral pleural effusions with associated basilar airspace opacities. Mild central pulmonary vascular congestion. Electronically signed by: Theo Traore M.D. 07/10/2018 6:19 PM Dictated: [id number]/10/[id number] Transcribed: 07/10/[id number] Blood Pressure Blood Pressure Findings: Normal blood pressure MDM Narrative The patient is a 78-year-old female who has a history of atrial fibrillation who presented to the emergency department for an evaluation of near syncope dizziness chest pain and difficulty breathing. The patient recently had her Lasix held because her creatinine has slowly been trending upward. She continues all other medications. She was found to be in junctional bradycardia upon arrival to the emergency department. Her symptoms improved with rest and IV fluids. Her heart rate slowly improved as well but she continued to be in atrial fibrillation. I discussed the patient's laboratory and radiographic studies with her. I also discussed her case with the on-call [facility] hospitalist group. They have agreed to evaluate the patient in the emergency department for further management and disposition. At this time it is possible that her underlying symptoms today are secondary to the bradycardia although given her other underlying medical conditions it is possible she may require further workup to evaluate the cause for ischemic heart disease. Impression & Plan Chest pain, Symptomatic bradycardia, Near syncope Discharge Plan Visit Data *Final* Discharge Date/Time: 07/10/18 20:59 Chief Complaint: Chest Pain Stated Complaint: DIZZINESS, NAUSEA ED Provider: Km Nowak Discharge Problem: Chest pain, Symptomatic bradycardia, Near syncope Patient Disposition: Admitted As Inpatient Discharge Instructions Interventions: ED Discharge Assessment Last Done: 07/10/18 20:59 Discharge Problem: Chest pain Qualifiers: Chest pain type: unspecified Qualified Code(s): R07.9 - Chest pain, unspecified The scribe's documentation has been prepared under my direction and personally reviewed by me in its entirety. I confirm that the note above accurately reflects all work, treatment, procedures, and medical decision making performed by me.
[2018-07-10] MEDS ORDERED: ACETAMINOPHEN 325 MG TAB PO PRN (22:19)
[2018-07-10] MEDS ORDERED: POLYETHYLENE (MIRALAX) 17 GM PACK PO PRN (22:19)
[2018-07-10] MEDS ORDERED: ALBUTEROL HFA 8 GM INHALER INH PRN (22:19)
[2018-07-10] MEDS ORDERED: NITROGLYCERIN SL 0.4 MG/TAB TAB SL PRN (22:19)
[2018-07-10] MEDS ORDERED: LORazepam 0.5 MG TAB PO PRN (22:19)
[2018-07-10] MEDS ORDERED: ONDANSETRON INJ 2 MG/ML 2 ML VIAL IV PRN (22:19)
[2018-07-10] MEDS ORDERED: ALUMINUM/MAGNESIUM SUSP 30 ML UDC PO PRN (22:19)
[2018-07-10] MEDS ORDERED: TRAMADOL HCL 50 MG TABLET PO PRN (22:19)
[2018-07-10] MEDS ORDERED: FUROSEMIDE 20 MG in SYRINGE 0 ML IV ONE (23:00)
[2018-07-10] MEDS: BUDESONIDE/FORMOTEROL FUMARATE 160/4.5 60 PUFFS/INHALER INH SCH (23:36)
[2018-07-10] MEDS: APIXABAN 2.5 MG TAB PO SCH (23:37)
[2018-07-10] MEDS: DOCUSATE SODIUM 100 MG CAP PO SCH (23:49)
--- NOTE | 2018-07-11 02:04 | History and Physical Report ---
DATE OF ADMISSION: 07/10/2018 CHIEF COMPLAINT: Chest pain and dizziness. 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 Received 4 cycles of chemo and there is a plan for lobectomy. It was not done because she was desaturating. Right now she is dependent on 3 L of oxygen all the time. History of pleural effusion, started on Lasix by pulmonary, but advised to stop last Wednesday because her kidney function was getting worse. History of hypertension. COPD, mild. History of atrial fibrillation, history of DC, GERD, chronic kidney disease stage III, anxiety, hyperlipidemia, diabetes, not on any medications, who lives with her son who is handicapped. Was brought in because she has some chest pain and dizziness today. The patient has some chest pain on the left side, mild in nature, no radiation, associated with some nausea, she became clammy, and also has some dizziness and she was brought into the ER. In the ER, EKG showed junctional rhythm with bradycardia and later improved to sinus rhythm. Currently, she is in sinus rhythm and she is feeling better. Currently no chest pain or shortness of breath or nausea. Resting comfortably. Family in the room. Has some headache, no blurred visions. Appetite is not that great, but she swallows okay and denies any cough, no abdominal pain. Normal bowel and bladder movements. No hematuria, no burning micturition, no melena or hematochezia. She says she walks with a walker at home, but she could not walk much far because she gets short of breath easily. Currently in the ER while resting she is doing okay. ALLERGIES: AMBIEN, LISINOPRIL. PAST MEDICAL HISTORY: As mentioned above. PAST SURGICAL HISTORY: Knee arthroscopy, carpal tunnel surgery, , colonoscopies, appendectomy, total hysterectomy. MEDICATIONS: The patient is on Ativan 0.5 mg p.o. at bedtime p.r.n., Symbicort 160/4.5 mg 2 puffs inhalation b.i.d., diltiazem ER 360 mg p.o. daily, aspirin 81 mg p.o. daily, Spiriva 2 puffs daily, Colace 100 mg p.o. b.i.d., MiraLax 17 grams p.o. b.i.d., Eliquis 2.5 mg p.o. b.i.d., magnesium 400 mg p.o. b.i.d., calcium carbonate 1250 mg p.o. 4 times a day, folic acid 1 mg p.o. daily, Lopressor 100 mg p.o. b.i.d., hydrocodone/acetaminophen 5/325 mg one tablet 3-4 times daily as needed, Zofran 8 mg p.o. t.i.d. p.r.n., Protonix 40 mg p.o. daily, albuterol 2 puffs every 6 hours p.r.n., nitroglycerin 0.4 mg sublingual p.r.n. FAMILY HISTORY: Significant for father at age 55 of COPD. Mother had stroke, CAD, hypertension, diabetes. Sister has hypertension. SOCIAL HISTORY: Lives with her son. Former smoker, quit in 1992. Prior to that, smoked half pack a day for 33 years. No alcohol use, no drug use. REVIEW OF SYSTEMS: As per HPI. Rest of the review of systems are negative. PHYSICAL EXAMINATION: GENERAL: The patient is old and frail, not in acute distress. VITAL SIGNS: Temperature 36.7; pulse was 40s when she came in, currently 71; blood pressure 142/76, oxygen 92% on 3 liters. HEENT: No pallor, no icterus. Pupils equal, round, and reactive to light. NECK: No JVD, no neck masses, no carotid bruits. CARDIOVASCULAR: S1, S2 heard, regular rate and rhythm, no murmur, no gallop. RESPIRATORY SYSTEM: Normal AP diameter. No accessory muscle use. No wheezing, no crackles. ABDOMEN: Soft, bowel sounds present. Nontender. No distention. CENTRAL NERVOUS SYSTEM: Cranial nerves II-XII grossly intact, nonfocal. EXTREMITIES: Bilateral lower extremity edema present. LABORATORY DATA: WBC 8, hemoglobin 11.6, hematocrit 36.3, platelets 171. PT 11.4, INR 1.1, APTT 23.2. Sodium 139, potassium 4.3, chloride 101, bicarbonate 31, BUN 30, creatinine 1.8, serum glucose 143, calcium 8.9, magnesium 2.8, total bilirubin 0.5, AST is 171, ALT is 76, alkaline phosphatase is 148. Troponin I of 0.016, lipase 189, TSH 3.14. IMAGING DATA: Chest x-ray, stable cardiomegaly with bilateral pleural effusion associated with basilar airspace opacities. Mild central pulmonary vascular congestion. EKG: Junctional bradycardia with rate of 42. ASSESSMENT AND PLAN: This is a 78-year-old female who presents with chest pain and presents with nausea and shortness of breath and dizziness. 1. Chest pain, left sided, associated with some dizziness and clamminess that got resolved now. When she came in, she was in junctional bradycardia, currently in sinus rhythm. She is currently feeling better, pain got resolved. We will rule out acute coronary syndrome with serial cardiac enzymes, echocardiogram. Monitor in the telemetry and consult cardiology. Will keep n.p.o. after midnight. 2. Junctional bradycardia. The patient has history of atrial fibrillation. Recently, her Cardizem dose was increased from 240 to 360. Will hold Lopressor and Cardizem for now. The patient is on Eliquis. Will follow echocardiogram and consult cardiology for possible tachybrady syndrome or adjusting the medications. 3. Pleural effusions. The patient was started on Lasix by pulmonary, but she stopped it because of worsening renal function last Wednesday. We will give a dose of Lasix and follow the labs. We may consult pulmonary again. 4. Lower extremity edema. Given a dose of Lasix. We will follow the echo results. 5. Chronic kidney disease stage III. Baseline creatinine around 1.5-1.8, currently creatinine of 1.8. We will follow the labs. 6. Chronic obstructive pulmonary disease. Continue her home inhalers. 7. Diabetes, not on any medications. Will follow HbA1c levels and place on diabetic diet. 8. History of coronary artery disease. Continue her aspirin. Holding her Lopressor for her bradycardia. The patient is not on statins. 9. Hypermagnesemia, currently magnesium level is high. Will hold the magnesium tablets. 10. Deep venous thrombosis prophylaxis, on Eliquis. 11. Disposition: Closely monitor in the tele floor. Level 1 full code only if there is chance of recovery. Social service to help with discharge planning. [facility]
[2018-07-11 04:46] LABS: Basophils # (auto) 0.02 K/uL (0-0.2); Basophils % (auto) 0.4 %; Eosinophils # (auto) 0.08 K/uL (0-0.5); Eosinophils % (auto) 1.5 %; Hemoglobin 11.2 g/dL (12.0-16.0); Immature Granulocytes # (auto) 0.03 K/uL (0.00-0.02); Immature Granulocytes % (auto) 0.6 %; Lymphocytes % (auto) 39.5 %; Mean Corpuscular Hgb Conc 32.9 g/dL (32-36); Mean Corpuscular Volume 101.2 fL (80-100); Mean Platelet Volume 9.7 fL (7.4-10.4); Monocytes # (auto) 0.42 K/uL (0.11-0.59); Monocytes % (auto) 7.9 %; Neutrophils # (auto) 2.67 K/uL (1.4-6.5); Neutrophils % (auto) 50.1 %; Platelet Count 153 K/uL (130-400); RDW Coefficient of Variation 14.8 % (11.5-14.5); Red Blood Count 3.36 M/uL (4.2-5.4); White Blood Count 5.32 K/uL (4.8-10.8)
[2018-07-11 05:10] LABS: BUN Creatinine Ratio 18.1 (10-20); Calcium 8.7 mg/dl (8.5-10.1); Est GFR (African American) 33.4; Est GFR (Non-African American) 28.8; Magnesium 2.7 mg/dl (1.8-2.4); Potassium 3.7 mmol/L (3.5-5.1)
[2018-07-11 05:14] LABS: Troponin I 0.017 ng/ml (0-0.045)
[2018-07-11 06:25] LABS: Estimated Average Glucose 126 mg/dl
[2018-07-11] MEDS: APIXABAN 2.5 MG TAB PO SCH (09:53)
[2018-07-11] MEDS: BUDESONIDE/FORMOTEROL FUMARATE 160/4.5 60 PUFFS/INHALER INH SCH ×2 (09:54→21:28)
[2018-07-11] MEDS: DOCUSATE SODIUM 100 MG CAP PO SCH ×2 (09:55→21:36)
[2018-07-11] MEDS: ASPIRIN 81 MG ECTAB PO SCH (09:55)
[2018-07-11] MEDS: LIDOCAINE 5% 1 PATCH TD SCH (09:55)
[2018-07-11] MEDS: PANTOprazole 40 MG TAB PO SCH (09:55)
[2018-07-11] MEDS: TIOTROPIUM BROMIDE 5 PUFF/90 MCG INH INH SCH (09:56)
[2018-07-11] MEDS: FOLIC ACID 1 MG TAB PO SCH (09:56)
--- NOTE | 2018-07-11 11:32 | Cardiology Consultation ---
Date of Consultation July 11, 2018 Assessment & Plan (1) Chest pain: Atypical. EKG without acute ST segment changes. Troponin negative x3. Resting echo with normal systolic function, without wall motion abnormality. Recommend conservative medical management given atypical symptoms, renal dysfunction, lung carcinoma Anxiety may be a contributing factor. (2) Symptomatic bradycardia: ? Vagal. Agree with discontinuation of diltiazem and withholding metoprolol on presentation. Given observed rates will resume a much lower dose of metoprolol tartrate Continue telemetry without interruption. Possible future need for permanent single-chamber pacemaker implantation discussed. (3) A-fib: Persistent if not permanent Asymptomatic Recommend rate control and renally dosed anticoagulation (4) HTN (hypertension): Blood pressures are acceptably controlled. Follow. (5) HLD (hyperlipidemia): Continue statin (6) CAD (coronary artery disease): History of inferior ID in 1992. Status post angioplasty of the right coronary artery. Residual LAD disease noted at the time of the remote catheterization See above Supervising Physician Co-Signing Physician Notes Cardiology attending: Pt seen and examined, agree with findings and assessment as per Enrique Laura PA-C. Chest discomfort does not appear to be cardiac in nature. More of an immediate concern is the possibility of tachy-rex syndrome. Pt has required max dose metoprolol and cardizem for rate control but now with significant rex event, possibly vagal in nature. Will give PM metoprolol 100mg po and hold cardizem. If any further rex events overnight then will proceed to single lead PPM placement. Pt and son in agreement with plan. Evening Eliquis held. History of Present Illness Reason for Consultation: Chset pain. Junctional rhythm. Requesting Physician: Emily Attending Physician: Stephen Bear MD History of Present Illness Ms. Toña Corona is a very pleasant 78-year-old female who is being seen at the request of Jayson Diaz MD. Reasons for consultation include chest pain and junctional rhythm. Patient followed by [facility]. In May 2018 the patient was found to have elevated heart rates on home monitor. At that time diltiazem was increased from 240 mg/day to 360 mg/day (she is also on metoprolol tartrate 100 mg twice per day) and she was ordered a 24-hour Holter monitoring revealing atrial fibrillation with good rate control. Her average heart rate was 82 bpm. Her minimum heart rate was 43 bpm. Maximum heart rate was 137 bpm. More recently she was observed to have increased bilateral pleural effusions for which she was prescribed furosemide with resultant mild worsening of her chronic renal dysfunction. Yesterday patient started experiencing dizziness while sitting in the chair that became worse when attempting to get up. She notes near syncope with position change. She describes nausea and dry heaving but no emesis. Thereafter she became quite scared, developing chest discomfort that she describes as sharp in nature, lasting 1-2 seconds, unlike the pain previously associated with her myocardial infarction in 1992. On presentation to the emergency room the patient was noted to be profoundly bradycardic with ventricular rates in the 40s. She was given IV fluids with improvement. The patient was admitted to continuous telemetry monitoring. Diltiazem (360 mg) and Lopressor (100 mg twice a day) were both held. Continuous telemetry monitoring reveals the persistent atrial fibrillation with ventricular rates in the 80-100 bpm range. Occasional PVCs. No periods of sinus noted. EKGs and resting echocardiography are as noted below. Troponin negative x3. Initial EKG atrial fibrillation with a markedly slow ventricular response of 43 bpm. July 11, 2018 Resting Echo Interpretation Summary: No significant change compared to prior study of 04/29/2018. Normal LV chamber size with mild concentric LVH. Normal LV systolic function, EF 60-65%. No segmental left ventricular wall motion abnormalities. Moderate left atrial enlargement. Diastolic dysfunction. Severe tricuspid regurgitation. Patient has a history of ischemic heart disease status post myocardial infarction in 1992. At that time she underwent arthrectomy and angioplasty of the right coronary artery. Angiography at that time was also notable for a 40% LAD lesion. The patient has a history of adenocarcinoma of the right lung and is status post chemotherapy. Additional problems include oxygen dependent chronic obstructive pulmonary disease, obstructive sleep apnea, hypertension, dyslipidemia, harriett history of valvular heart disease. Additional Past Medical/Surgical History: Type 2 diabetes mellitus Stage III chronic kidney disease Esophageal reflux Anxiety Cervical radiculopathy Osteoporosis Carpal tunnel Appendectomy Hysterectomy Family History: Mother at the age of 89 with CAD. Father with emphysema in his 60s. She has 1 brother and 1 sister without cardiac issues. Social History: Reformed smoker having quit in 1992, at the time of her ID. She notes smoking 1 pack every 3 days for approximately 25 years. No alcohol. No illegal drug use. . Retired. Four children. Her second son is disabled and lives with her. Complete Review of Systems: No headache. No blurred vision. No unilateral weakness to suggest TIA or CVA. Mild intermittent epistaxis since utilizing supplemental oxygen therapy. She denies hemoptysis. She denies hematuria. She denies melena or hematochezia. Appetite is down somewhat. No dysphagia. + constipation. No dysuria. Knee pain. Complete review of systems is otherwise as stated above, negative, noncontributory. Allergies Allergy/AdvReac Type Severity Reaction Status Date / Time lisinopril Allergy Intermediate RASH Verified 07/10/18 18:25 zolpidem AdvReac Severe hallucinati Verified 07/10/18 18:25 ons Home Medications Home Medications Medication Instructions Recorded Confirmed Type Symbicort 2 puff INHALATION BID 04/21/18 07/10/18 History albuterol sulfate [Ventolin HFA] 1 puff INHALATION Q6H PRN 04/21/18 07/10/18 History lorazepam 0.5 mg PO HS PRN 04/21/18 07/10/18 History metoprolol tartrate 100 mg PO BID 04/21/18 07/10/18 History pantoprazole 40 mg PO DAILY 04/21/18 07/10/18 History Spiriva Respimat 2 puff INHALATION DAILY 04/28/18 07/10/18 History folic acid 1 mg PO DAILY 04/28/18 07/10/18 History nitroglycerin 0.4 mg SUBLINGUAL UD PRN 04/28/18 07/10/18 History lidocaine 1 patch TRANSDERMAL DAILY #30 ea 05/04/18 07/10/18 Rx tramadol [Ultram] 50 mg PO QID PRN #18 tab 05/18/18 07/10/18 Rx apixaban [Eliquis] 2.5 mg PO BID 07/10/18 07/10/18 History aspirin [Aspirin Low Dose] 81 mg PO DAILY 07/10/18 07/10/18 History diltiazem HCl 360 mg PO DAILY 07/10/18 07/10/18 History docusate sodium [Colace] 100 mg PO BID 07/10/18 07/10/18 History hydrocodone-acetaminophen 1 tab PO QID PRN 07/10/18 07/10/18 History magnesium oxide 400 mg PO BID 07/10/18 07/10/18 History ondansetron HCl [Zofran] 8 mg PO TID PRN 07/10/18 07/10/18 History Patient History Medical History Anemia Cancer LUNG CANCER S/P RECENT CHEMO (COMPLETED 04/01/18) Chronic obstructive pulmonary disease GERD (gastroesophageal reflux disease) Hiatal hernia Hyperlipidemia Hypertension Myocardial Infarction 1992= MEDICAL MANAGEMENT Osteoarthritis Osteoporosis Surgical History History of adenoidectomy History of appendectomy History of arthroscopy RIGHT KNEE History of cardiac cath 1992= NO STENTS History of cataract surgery BILATERAL History of section X4 History of colonoscopy History of hysterectomy JOSE WITH BSO History of lung surgery NAVIGATIONAL BRONCH/EBUS= 11/09/17= GRADE I VIEW, MAC 3, ETT 8.0 AT [facility] History of tonsillectomy History of tooth extraction Family History Grandfather (Paternal) Family hx of colon cancer Social History Communication Ability: Effective Beliefs That Will Affect Care: None Current Living Situation: Family Current Living Situation Comment: HAS A DISABLED SON LIVING WITH HER PLUS NURSING CARE POST OP Other Information That Helps Us Care for You: Yes Feels Safe at Home: Yes Safety Concerns: Feels Safe At This Time Smoking Status: Former smoker Hx Alcohol Use: No Hx Substance Use: No Physical Exam Vital Signs (Past 24 Hours): Last Vital Signs Temp 36.6 C 07/11/18 10:41 Pulse 111 H 07/11/18 10:41 Resp 19 07/11/18 10:41 BP 135/86 07/11/18 10:41 Pulse Ox 96 07/11/18 10:41 Physical Exam: General: A&Ox3. NAD. Somewhat anxious HEENT: Normocephalic. Atraumatic. PER. Conjunctiva pink, sclera pale. Neck: No carotid bruits. Neck veins are flat. Heart: Irregularly irregular in the 90's. Grade I-II systolic murmur. No rub. PMI is nondisplaced. Lungs: Absent at the right base and to a lesser extent at the left base. No abnormal breath sounds appreciated. Abdomen: +BS. Soft. Nontender. No masses or organomegaly. Extremities: Indurated edema/fluid retention. No clubbing. No cyanosis. Limited neurological examination is without focal deficits. Pulses: radial=2/4, posterior tibial=1-2/4. Results & Data Laboratory Results Laboratory Results - last 24 hr 07/10/18 07/10/18 07/10/18 17:43 17:43 17:43 WBC 8.06 RBC 3.50 L Hgb 11.6 L Hct 36.3 L MCV 103.7 H MCH 33.1 MCHC 32.0 RDW Std Deviation 56.5 H RDW Coeff of Ilya 14.9 H Plt Count 171 MPV 9.9 Immature Gran % (Auto) 0.5 Neut % (Auto) 62.1 Lymph % (Auto) 26.1 Ector % (Auto) 9.8 Eos % (Auto) 1.1 Baso % (Auto) 0.4 Immature Gran # (Auto) 0.04 H Neut # (Auto) 5.01 Lymph # (Auto) 2.10 Ector # (Auto) 0.79 H Eos # (Auto) 0.09 Baso # (Auto) 0.03 PT 11.4 INR 1.1 APTT 23.2 PTT Ratio 0.9 Sodium 139 Potassium 4.3 Chloride 101 Carbon Dioxide 31 Anion Gap 7.0 BUN 30 H Creatinine 1.81 H Est Cr Clr Drug Dosing Not Reportable Est GFR ( Amer) 30.3 Est GFR (Non-Af Amer) 26.1 BUN/Creatinine Ratio 16.8 Glucose 143 H POC Glucose Estimat Average Glucose Hemoglobin A1c Calcium 8.9 Magnesium 2.8 H Total Bilirubin 0.5 AST 171 H ALT 76 Alkaline Phosphatase 148 H Troponin I 0.016 Total Protein 7.0 Albumin 3.1 L Globulin 3.9 Albumin/Globulin Ratio 0.8 L Lipase 189 TSH 3.140 07/10/18 07/10/18 07/11/18 21:48 22:44 04:25 WBC RBC Hgb Hct MCV MCH MCHC RDW Std Deviation RDW Coeff of Ilya Plt Count MPV Immature Gran % (Auto) Neut % (Auto) Lymph % (Auto) Ector % (Auto) Eos % (Auto) Baso % (Auto) Immature Gran # (Auto) Neut # (Auto) Lymph # (Auto) Ector # (Auto) Eos # (Auto) Baso # (Auto) PT INR APTT PTT Ratio Sodium Potassium Chloride Carbon Dioxide Anion Gap BUN Creatinine Est Cr Clr Drug Dosing Est GFR ( Amer) Est GFR (Non-Af Amer) BUN/Creatinine Ratio Glucose POC Glucose 105 H Estimat Average Glucose 126 Hemoglobin A1c 6.0 H Calcium Magnesium Total Bilirubin AST ALT Alkaline Phosphatase Troponin I < 0.015 Total Protein Albumin Globulin Albumin/Globulin Ratio Lipase TSH 07/11/18 07/11/18 07/11/18 04:25 04:25 10:15 WBC 5.32 RBC 3.36 L Hgb 11.2 L Hct 34.0 L MCV 101.2 H MCH 33.3 MCHC 32.9 RDW Std Deviation 55.0 H RDW Coeff of Ilya 14.8 H Plt Count 153 MPV 9.7 Immature Gran % (Auto) 0.6 Neut % (Auto) 50.1 Lymph % (Auto) 39.5 Ector % (Auto) 7.9 Eos % (Auto) 1.5 Baso % (Auto) 0.4 Immature Gran # (Auto) 0.03 H Neut # (Auto) 2.67 Lymph # (Auto) 2.10 Ector # (Auto) 0.42 Eos # (Auto) 0.08 Baso # (Auto) 0.02 PT INR APTT PTT Ratio Sodium 141 Potassium 3.7 Chloride 102 Carbon Dioxide 33 H Anion Gap 6.0 BUN 30 H Creatinine 1.67 H Est Cr Clr Drug Dosing 20.0 Est GFR ( Amer) 33.4 Est GFR (Non-Af Amer) 28.8 BUN/Creatinine Ratio 18.1 Glucose 111 H POC Glucose Estimat Average Glucose Hemoglobin A1c Calcium 8.7 Magnesium 2.7 H Total Bilirubin AST ALT Alkaline Phosphatase Troponin I 0.017 < 0.015 Total Protein Albumin Globulin Albumin/Globulin Ratio Lipase TSH (1) A-fib Atrial fibrillation type: unspecified Qualified Code(s): I48.91 - Unspecified atrial fibrillation (2) Chest pain Chest pain type: unspecified Qualified Code(s): R07.9 - Chest pain, unspecified
[2018-07-11] MEDS: FUROSEMIDE 20 MG TAB PO SCH (12:42)
[2018-07-11] MEDS: METOPROLOL TARTRATE 100 MG TAB PO SCH (18:10)
[2018-07-11] MEDS ORDERED: METOPROLOL TARTRATE 25 MG TAB PO SCH (21:00)
--- NOTE | 2018-07-11 23:49 | Hospitalist Progress Note ---
Date of Service July 11, 2018 Delayed entry date of service July 11, 2018 Assessment & Plan (1) Chest pain: ASSESSMENT AND PLAN: This is a 78-year-old female who presents with chest pain and presents with nausea and shortness of breath and dizziness. 1. Chest pain, left sided, associated with some dizziness and clamminess that got resolved now. When she came in, she was in junctional bradycardia, currently in sinus rhythm. Acute coronary syndrome ruled out Echocardiogram ordered 2. Junctional bradycardia. Cardizem discontinued Metoprolol resumed Monitor on telemetry 3. Pleural effusions. The patient was started on Lasix by pulmonary, but she stopped it because of worsening renal function last Wednesday. Given IV Lasix 20 mg IV 1 dose Start Lasix 20 mg p.o. daily, monitor renal function will consult Pulmonary 4. Lower extremity edema. Likely secondary to moderate to severe tricuspid regurgitation Lasix 20 mg p.o. daily started Check creatinine tomorrow 5. Chronic kidney disease stage III. Baseline creatinine around 1.5-1.8, currently creatinine of 1.8. We will follow the labs. 6. Chronic obstructive pulmonary disease. Continue her home inhalers. 7. Diabetes, not on any medications. Will follow HbA1c levels and place on diabetic diet. 8. History of coronary artery disease. Continue her aspirin. Metoprolol resumed 9. Hypermagnesemia, currently magnesium level is high. Will hold the magnesium tablets. 10. Deep venous thrombosis prophylaxis, on Eliquis. 11. Disposition: Closely monitor in the tele floor. Level 1 full code only if there is chance of recovery. Social service to help with discharge planning. Subjective ff up for chest pain, bradycardia Seen resting in bed, comfortable, in good spirits States she feels improved compared to admission Denies recurrence of chest pain, shortness of breath, dyspnea, palpitations, dizziness No changes in breathing, no coughing no fevers or chills No other symptoms Physical Exam Vital Signs (Past 24 Hours): Last Vital Signs Temp 36.9 C 07/11/18 23:10 Pulse 105 H 07/11/18 23:10 Resp 16 07/11/18 23:10 BP 135/84 07/11/18 23:10 Pulse Ox 97 07/11/18 23:10 Physical Exam: General- oriented x 3, not in distress, speaks in sentences with no effort or accessory muscle use Head- atraumatic Eyes- PERRL, EOMI, anicteric ENT- oropharynx clear Neck- supple, no JVD, no adenopathy, no thyromegaly; carotids +2/2, no bruits appreciated Lungs-decreased breath sounds at the bases, no crackles or wheezing, otherwise good air entry bilaterally Heart-mildly space tachycardic, regular rhythm; no murmur, no gallop, no rub appreciated Abdomen- normal bowel sounds, nondistended, soft, nontender, no masses or hepatosplenomegaly Extremities- no pretibial edema, no calf tenderness; peripheral pulses intact Neuro- alert, oriented x 3; CN 2-12 grossly intact; motor 5/5 bilaterally;sensation 100% on all extremities; no other gross focal neurologic deficits Skin- warm & dry Results & Data Laboratory Results All noted and reviewed (1) Chest pain Chest pain type: unspecified Qualified Code(s): R07.9 - Chest pain, unspecified
[2018-07-12] MEDS: FOLIC ACID 1 MG TAB PO SCH (08:10)
[2018-07-12] MEDS: METOPROLOL TARTRATE 100 MG TAB PO SCH ×2 (08:10→20:04)
[2018-07-12] MEDS: ASPIRIN 81 MG ECTAB PO SCH (08:11)
[2018-07-12] MEDS: TIOTROPIUM BROMIDE 5 PUFF/90 MCG INH INH SCH (08:11)
[2018-07-12] MEDS: BUDESONIDE/FORMOTEROL FUMARATE 160/4.5 60 PUFFS/INHALER INH SCH ×2 (08:11→20:05)
[2018-07-12] MEDS: DOCUSATE SODIUM 100 MG CAP PO SCH ×2 (08:12→20:05)
[2018-07-12] MEDS: FUROSEMIDE 20 MG TAB PO SCH (08:12)
[2018-07-12] MEDS: LIDOCAINE 5% 1 PATCH TD SCH (08:12)
[2018-07-12] MEDS: PANTOprazole 40 MG TAB PO SCH (09:25)
[2018-07-12] MEDS ORDERED: BACITRACIN INJ 50,000 UNIT VIAL ONE (09:38)
[2018-07-12] MEDS ORDERED: BUPIVACAINE 0.25% 30 ML VIAL ONE (09:38)
[2018-07-12] MEDS ORDERED: LIDOCAINE HCL 1% 20 ML VIAL ONE (09:38)
[2018-07-12] MEDS ORDERED: CEFAZOLIN 250 MG/ML 1 GM VIAL ONE (09:40)
--- NOTE | 2018-07-12 09:53 | History & Physical Bridge Note ---
Date of Service July 12, 2018 History & Physical Bridge Note I have examined the patient, reviewed the History & Physical and in the interval since the performance of the History & Physical I have noted the following changes of clinical significance: pt with TBS had her last dose of Eliquis yesterday morning; for a dual chamber pacemaker-procedure and risks discussed with the patient-consents signed
--- NOTE | 2018-07-12 09:54 | Pre Anesthesia Assessment ---
Date of Service July 12, 2018 Pre Sedation Assessment Vital Signs Temp Pulse Pulse Resp BP BP Pulse Ox 07/12/18 07:23 36.8 C 53 L 18 138/86 96 07/12/18 04:15 90 07/12/18 03:46 36.5 C 97 H 18 134/75 95 07/11/18 23:10 36.9 C 105 H 16 135/84 97 07/11/18 19:17 36.7 C 115 H 16 148/75 H 93 07/11/18 15:05 36.4 C L 128 H 18 169/88 H 92 07/11/18 10:41 36.6 C 111 H 19 135/86 96 Cardiovascular + bradycardic Respiratory normal respiratory effort, lungs clear to auscultation Pre-Sedation Airway Assessment Smoking Status: Former smoker Hx Sleep Apnea: No Hx Difficult Intubation: No Short, Thick Neck: No Thyromental Distance: < 3.5 Finger Breadths Oral Cavity: + WNL Mallampati Class: II ASA: ASA3 Notes The planned sedation has been discussed with the patient. Informed Consent was obtained. I have identified the patient, determined the appropriateness of sedation and have assessed the patient immediately prior to the procedure. All medicine(s) and interventions are by my order.
[2018-07-12] MEDS ORDERED: fentaNYL citrate 100 MCG/2 ML VIAL ONE (10:21)
[2018-07-12] MEDS ORDERED: MIDAZOLAM HCL 5 MG/ML 1 ML VIAL ONE (10:21)
[2018-07-12 10:43] LABS: BUN Creatinine Ratio 16.8 (10-20); Creatinine Clr Calc Pharmacy 27.7 ml/min; Est GFR (African American) 49.8; Magnesium 1.9 mg/dl (1.8-2.4); Potassium 3.7 mmol/L (3.5-5.1)
--- NOTE | 2018-07-12 11:26 | Post Anesthesia Assessment ---
Date of Service July 12, 2018 Post Sedation Assessment Vital Signs Temp Pulse Pulse Resp BP BP Pulse Ox 07/12/18 07:23 36.8 C 53 L 18 138/86 96 07/12/18 04:15 90 07/12/18 03:46 36.5 C 97 H 18 134/75 95 07/11/18 23:10 36.9 C 105 H 16 135/84 97 07/11/18 19:17 36.7 C 115 H 16 148/75 H 93 07/11/18 15:05 36.4 C L 128 H 18 169/88 H 92 Recovery Score Activity: Moves 4 extremities Respiration: Deep Breath/Cough Circulation: +/-20% PreAnes Value Consciousness: Fully Awake Oxygen Saturation: > 92% On Room Air Discharge Sedation Level of Care: Fast Track Phase II Post Sedation Plan On clinical assessment, the patient appears to have tolerated the sedation without complications. Patient is recovering as anticipated. Patient will continue to be monitored by nursing and may be discharged when sedation discharge criteria are met per below protocol. Upon Completions of procedure and additional 15 minutes continue every 5 minute vital signs and the P.A.R. score; then discharge to a Phase I or Fast Track to Phase II per the following guidelines: * Discharge Patient to appropriate Phase II area if PAR is 8 or greater or return to pre- procedure baseline. The post - procedure orders will be as directed. * If PAR score is less than 8 or not return to pre-procedure baseline then patient will follow Phase I monitoring till PAR is reached for Phase II. The Phase I may be done in procedure room or may call to secure a Phase I area. * If naloxone or flumazenil are used for reversal, hold in Phase I for continued monitoring from when last reversal dose was given for a minimum of 60 minutes or longer pending the nurse and/or physician discretion of patient condition before discharge to Phase II. Please call the Sedation Physician to re-evaluate and complete post-note for discharge to Phase II area. Do NOT discharge from procedure sedation or Phase 1 until post- sedation evaluation note is complete by procedure /sedation MD Sedation Discharge Instructions to be given to the patient at discharge to home.
--- NOTE | 2018-07-12 11:27 | Operative Report ---
Post Operative Report Pre & Post Diagnosis tbs Operation Date: 07/12/18 09:00 <No data on this case meets the specified criteria> Procedure Operation Date: 07/12/18 09:00 Actual Procedures p Pacer with Ventricular Lead - Alea Healy DO s Venogram, Unilateral - Alea Healy DO Surgeon Alea Healy, Mechanical Manufacturing Technician none Estimated Blood Loss 30 Findings Consistent with Post-Op Diagnosis Specimens none Description of Procedure see official report I attest to the content of the Intraoperative Record and any orders documented therein. Any exceptions are noted below.
--- NOTE | 2018-07-12 15:58 | XRay Report ---
XR chest 1V portable CLINICAL HISTORY: S/P Thoracentesis COMPARISON STUDY: Chest radiograph July 10, 2018. FINDINGS: There is no pneumothorax status post thoracentesis. Right pleural effusion has decreased in size. A small to moderate left pleural effusion is unchanged. Cardiomegaly is noted. There is pulmon nimisha vascular congestion. Left subclavian pacer is noted. IMPRESSION: 1. No pneumothorax following thoracentesis. Small right pleural effusion, decreased in size. 2. No significant change in a small to moderate left pleural effusion. Electronically signed by: Elías Nicole M.D. 07/12/2018 3:57 PM
[2018-07-12] MEDS: HYDROCODONE/ACETAMOPHEN 5/325MG TAB PO PRN (16:02)
[2018-07-12 16:32] LABS: Glucose Pleural Fluid 106 mg/dl
[2018-07-12 16:44] LABS: Amylase Pleural Fluid 24 U/L; LDH Pleural Fluid 103 U/L
--- NOTE | 2018-07-12 16:51 | Cardiology Progress Note ---
Date of Service July 12, 2018 Assessment & Plan (1) Chest pain: Atypical. EKG without acute ST segment changes. Troponin negative x3. Resting echo with normal systolic function, without wall motion abnormality. Recommend conservative medical management given atypical symptoms, renal d ysfunction, lung carcinoma Anxiety may be a contributing factor. (2) Symptomatic bradycardia: Tachy-rex syndrome rates varied overnight 130's-40's s/p single lead PPM placement tolerated well will now resume home regime for rate control (3) A-fib: as above (4) HTN (hypertension): Blood pressures are acceptably controlled. Follow. (5) HLD (hyperlipidemia): Continue statin (6) CAD (coronary artery disease): History of inferior DE in 1992. Status post angioplasty of the right coronary artery. Residual LAD disease noted at the time of the remote catheterization See above Subjective Pt seen and examined, son at bedside, states that she feels well s/p PPM placement. Tolerated well. Denies cp, sob, palpitations, lightheadedness or dizziness. tele reviewed: afib in 120's Review of Systems All systems reviewed & are unremarkable except as noted in HPI & below Physical Exam Vital Signs (Past 24 Hours): Last Vital Signs Temp 36.7 C 07/12/18 15:43 Pulse 111 H 07/12/18 15:43 Resp 22 07/12/18 15:43 BP 129/79 07/12/18 15:43 Pulse Ox 96 07/12/18 15:43 Physical Exam: General: Awake, alert and oriented x 3. No acute distress. HEENT: Normocephalic, atraumatic. Pupils equal, round and reactive to light and accommodation. Extraocular muscles are intact. Anicteric sclera. Moist mucous membranes. Neck: No JVD. No bruit. Cardiovascular: irregularly irregular, unable to appreciate murmur, rub or gallop. Pulmonary: Clear to auscultation bilaterally. No rales, rhonchi, or wheezing. Abdomen: Bowel sounds x 4, soft. No rebound, guarding or tenderness. No organomegaly. Extremities: No clubbing, cyanosis or edema. +2 pedal pulses bilaterally. Skin: Warm and dry. (1) Chest pain Chest pain type: unspecified Qualified Code(s): R07.9 - Chest pain, unspecified (2) A-fib Atrial fibrillation type: unspecified Qualified Code(s): I48.91 - Unspecified atrial fibrillation
[2018-07-12 17:02] LABS: Appearance Pleural Fluid CLOUDY; Color Pleural Fluid YELLOW; Mononuclear WBC Pleural 97.1 %; Polynuclear WBC Pleural 2.9 %; RBC Pleural Fluid (A) 3000 /uL; Source Pleural Fluid RIGHT LUNG; WBC Pleural Fluid (A) 576 /uL
[2018-07-12] MEDS ORDERED: dilTIAZem HCL 120 MG CAPCR PO ONE (17:15)
[2018-07-12] MEDS: APIXABAN 2.5 MG TAB PO SCH (17:29)
--- NOTE | 2018-07-12 18:07 | Pulmonary Consultation ---
Date of Consultation July 12, 2018 Assessment & Plan (1) Symptomatic bradycardia: Impression: 1. Non-small cell lung CA. Right upper lobe, status post 4 cycles of chemotherapy. Inoperable due to her comorbidity. 2. COPD. 3. Bradycardia status post pacemaker placement today. 4. History of A. fib. 5. Right-sided pleural effusion, status post thoracentesis, transudate in nature likely related to CHF. Plan: 1. The pleural fluid likely related to CHF. 2. No further treatment or intervention from pulmonary standpoint. 3. Continue diuresis and treatment for CHF. 4. Hold Eliquis until the morning. And then restarted. 5. Patient can be discharged home. Thank you, will follow as needed. History of Present Illness Reason for Consultation: Pleural effusion Requesting Physician: Dr. Bear Attending Physician: Stephen Bear MD History of Present Illness Dear Dr. Bear: Thank you for the kind referral of Mrs. Escalante to pulmonary service. This is 78-year-old female known to me from the past with a history of non-small cell lung CA, status post lung biopsy, multiple lymphadenopathy, has been deemed nonsurgical candidate, received 4 cycles of chemotherapy in the past, the patient was presented to the hospital with near syncopal episode, and increased shortness of breath, the patient does have a history of A. fib, NM, and found to have bilateral pleural effusion. The patient also noted to have sinus bradycardia which was symptomatic and underwent pacemaker placement today. We were asked to evaluate for the pleural effusion. The patient has been off Eliquis which she is been taken for A. fib. When I interviewed the patient, she denies any pain, no shortness of breath, no abdominal pain, no nausea or vomiting, no increased swelling in her lower extremities. She does have cough but nonproductive and no hemoptysis. Review o f system otherwise was unremarkable. Allergies Allergy/AdvReac Type Severity Reaction Status Date / Time lisinopril Allergy Intermediate RASH Verified 07/10/18 18:25 zolpidem AdvReac Severe hallucinati Verified 07/10/18 18:25 ons Home Medications Home Medications Medication Instructions Recorded Confirmed Type Symbicort 2 puff INHALATION BID 04/21/18 07/10/18 History albuterol sulfate [Ventolin HFA] 1 puff INHALATION Q6H PRN 04/21/18 07/10/18 History lorazepam 0.5 mg PO HS PRN 04/21/18 07/10/18 History metoprolol tartrate 100 mg PO BID 04/21/18 07/10/18 History pantoprazole 40 mg PO DAILY 04/21/18 07/10/18 History Spiriva Respimat 2 puff INHALATION DAILY 04/28/18 07/10/18 History folic acid 1 mg PO DAILY 04/28/18 07/10/18 History nitroglycerin 0.4 mg SUBLINGUAL UD PRN 04/28/18 07/10/18 History lidocaine 1 patch TRANSDERMAL DAILY #30 ea 05/04/18 07/10/18 Rx tramadol [Ultram] 50 mg PO QID PRN #18 tab 05/18/18 07/10/18 Rx apixaban [Eliquis] 2.5 mg PO BID 07/10/18 07/10/18 History aspirin [Aspirin Low Dose] 81 mg PO DAILY 07/10/18 07/10/18 History diltiazem HCl 360 mg PO DAILY 07/10/18 07/10/18 History docusate sodium [Colace] 100 mg PO BID 07/10/18 07/10/18 History hydrocodone-acetaminophen 1 tab PO QID PRN 07/10/18 07/10/18 History magnesium oxide 400 mg PO BID 07/10/18 07/10/18 History ondansetron HCl [Zofran] 8 mg PO TID PRN 07/10/18 07/10/18 History Patient History Medical History Anemia Cancer LUNG CANCER S/P RECENT CHEMO (COMPLETED 04/01/18) Chronic obstructive pulmonary disease GERD (gastroesophageal reflux disease) Hiatal hernia Hyperlipidemia Hypertension Myocardial Infarction 1992= [employer]NAGEMENT Osteoarthritis Osteoporosis Surgical History History of adenoidectomy History of appendectomy History of arthroscopy RIGHT KNEE History of cardiac cath 1992= NO STENTS History of cataract surgery BILATERAL History of section X4 History of colonoscopy History of hysterectomy JOSE WITH BSO History of lung surgery NAVIGATIONAL BRONCH/EBUS= 11/09/17= GRADE I VIEW, MAC 3, ETT [address] [facility] History of tonsillectomy History of tooth extraction Family History Grandfather (Paternal) Family hx of colon cancer Social History Communication Ability: Effective Beliefs That Will Affect Care: None Current Living Situation: Family Current Living Situation Comment: HAS A DISABLED SON LIVING WITH HER PLUS NURSING CARE POST OP Other Information That Helps Us Care for You: Yes Feels Safe at Home: Yes Safety Concerns: Feels Safe At This Time Smoking Status: Former smoker Hx Alcohol Use: No Hx Substance Use: No Review of Systems Review of system including 14 systems was unremarkable except for the above. Physical Exam Vital Signs (Past 24 Hours): Last Vital Signs Temp 36.7 C 07/12/18 15:43 Pulse 111 H 07/12/18 15:43 Resp 22 07/12/18 15:43 BP 129/79 07/12/18 15:43 Pulse Ox 96 07/12/18 15:43 Physical Exam: Vital signs are stable, she is currently not in A. fib, S1-S2 regular rate and rhythm, systolic ejection murmur, distant breath sounds at the bases, abdomen is benign, no edema, no focal weakness, no rash and no oral thrush. Results & Data Laboratory Results Labs were reviewed, which are within her baseline. Pleural fluid return as transudate. Diagnostic Findings Chest x-ray showed decreased pleural effusion on the right. And persistent on the left.
--- NOTE | 2018-07-12 18:09 | Procedure Note ---
Procedure Note Date of Service July 12, 2018 Note Thoracentesis was done at the bedside, consent obtained from the patient, risk and benefit explained details of the patient, the patient was placed in upright position, using ultrasound guidance, on the right side, pleural fluid were not ed, the skin was prepped with chlorhexidine, the procedure was done by Dr. Hunter, I was present throughout the entire procedure assisting with the procedure. Under strict sterile field, after prepping the skin, the skin was injected with lidocaine 1%, as well as the subcutaneous tissue as well as the pleura. Using Seldinger technique, scalpel with a catheter, the catheter was inserted into the right pleural cavity, total amount of fluid was drained was 1000 mL of dark yellow fluid. The patient catheter was removed, pressure was applied for 2 minutes at the insertion site, no immediate complication, chest x-ray reviewed and showed no pneumothorax. Thank you for all the assistance of the nursing staff.
[2018-07-13] MEDS: HYDROCODONE/ACETAMOPHEN 5/325MG TAB PO PRN ×4 (00:23→23:26)
--- NOTE | 2018-07-13 06:35 | Hospitalist Progress Note ---
Date of Service July 13, 2018 delayed entry date of service 07/12/18 Assessment & Plan (1) Chest pain: ASSESSMENT AND PLAN: This is a 78-year-old female who presents with chest pain and presents with nausea and shortness of breath and dizziness. 1. Chest pain, left sided, associated with some dizziness and clamminess that got resolved now. When she came in, she was in junctional bradycardia, currently in sinus rhythm. Acute coronary syndrome ruled out Echocardiogram no segmental wall motion abnormalities 2. Junctional bradycardia. s/p pacemaker Cardizem and Metoprolol resumed monitor HR 3. Pleural effusions. The patient was started on Lasix by pulmonary, but she stopped it because of worsening renal function last Wednesday. Given IV Lasix 20 mg IV 1 dose Start Lasix 20 mg p.o. daily, monitor renal function will consult Pulmonary 4. Lower extremity edema. Likely secondary to moderate to severe tricuspid regurgitation Lasix 20 mg p.o. daily started crea stable monitor 5. Chronic kidney disease stage III. Baseline creatinine around 1.5-1.8, crea improved to 1.2 6. Chronic obstructive pulmonary disease. Continue her home inhalers. 7. Diabetes, not on any medications. a1c 6.0 8. History of coronary artery disease. Continue her aspirin. Metoprolol resumed 9. Hypermagnesemia monitor Mg level 10. Deep venous thrombosis prophylaxis, on Eliquis. 11. Disposition: Closely monitor in the tele floor. Level 1 full code only if there is chance of recovery. Social service to help with discharge planning. Subjective ff up for tachybrady syndrome s/p pacemaker placement comfortable, having lunch has mild soreness on the pacemaker site no chest pain, dyspnea, dizziness, nausea no other symptoms Physical Exam Vital Signs (Past 24 Hours): Last Vital Signs Temp 36.5 C 07/13/18 03:12 Pulse 112 H 07/13/18 03:12 Resp 16 07/13/18 03:12 BP 127/80 07/13/18 03:12 Pulse Ox 95 07/13/18 03:12 Physical Exam: General- oriented x2, not in distress, speaks in sentences with no effort or accessory muscle use Eyes- anicteric Neck- no JVD Lungs- decreased breath sounds at the bases no wheezing Heart- normal rate, regular rhythm; no murmurs Abdomen- normal bowel sounds, nondistended, soft, nontender Extremities- no pretibial edema, no calf tenderness Neuro- alert, oriented x 2; no gross focal neurologic deficits Skin- warm & dry (1) Chest pain Chest pain type: unspecified Qualified Code(s): R07.9 - Chest pain, unspecified
--- NOTE | 2018-07-13 06:59 | XRay Report ---
XR chest 2V routine HISTORY: 78 years-old Female post implant status post placement of a single lead left subclavian pac er COMPARISON: Chest radiograph 07/12/2018 TECHNIQUE: PA and lateral views of the chest FINDINGS: Unchanged positioning of single lead left subclavian pacer. Calcification the thoracic aortic arch. C ardiac silhouette is enlarged, unchanged. Pulmonary vascular congestion. Small to moderate-sized bila teral pleural effusions redemonstrated, not significantly change. Ill-defined 1.2 cm opacity about th e right suprahilar lung, unchanged. No pneumothorax. Bibasilar opacities, slightly progressed on the right. Degenerative changes of the shoulders and spine. IMPRESSION: 1. Cardiomegaly with mild pulmonary vascular congestion. 2. Small to moderate bilateral pleural effusions. 3. Bibasilar opacities, slightly progressed on the right. The above report was generated using voice recognition software. It may contain grammatical, syntax o r spelling errors. Electronically signed by: Haim Norris M.D. 07/13/2018 6:57 AM
[2018-07-13 07:36] LABS: BUN Creatinine Ratio 19.2 (10-20); Calcium 8.8 mg/dl (8.5-10.1); Creatinine Clr Calc Pharmacy 24.7 ml/min; Est GFR (African American) 44.8; Est GFR (Non-African American) 38.6; Magnesium 1.8 mg/dl (1.8-2.4); Potassium 3.8 mmol/L (3.5-5.1)
[2018-07-13] MEDS: PANTOprazole 40 MG TAB PO SCH (07:59)
[2018-07-13] MEDS: APIXABAN 2.5 MG TAB PO SCH ×2 (07:59→20:32)
[2018-07-13] MEDS: ASPIRIN 81 MG ECTAB PO SCH (07:59)
[2018-07-13] MEDS: FUROSEMIDE 20 MG TAB PO SCH (07:59)
[2018-07-13] MEDS: FOLIC ACID 1 MG TAB PO SCH (07:59)
[2018-07-13] MEDS: DOCUSATE SODIUM 100 MG CAP PO SCH ×2 (08:00→20:33)
[2018-07-13] MEDS: dilTIAZem HCL 180 MG CAPCR PO SCH (08:00)
[2018-07-13] MEDS: TIOTROPIUM BROMIDE 5 PUFF/90 MCG INH INH SCH (08:01)
[2018-07-13] MEDS: LIDOCAINE 5% 1 PATCH TD SCH (08:01)
[2018-07-13] MEDS: BUDESONIDE/FORMOTEROL FUMARATE 160/4.5 60 PUFFS/INHALER INH SCH ×2 (08:02→20:33)
[2018-07-13] MEDS: METOPROLOL TARTRATE 100 MG TAB PO SCH ×2 (08:38→20:32)
[2018-07-13] MEDS: POTASSIUM CHLORIDE 20 MEQ TABCR PO SCH (12:13)
[2018-07-13] MEDS: FUROSEMIDE 40 MG TAB PO SCH (12:13)
--- NOTE | 2018-07-13 13:14 | Cardiology Progress Note ---
Date of Service July 13, 2018 Assessment & Plan (1) Tachy-rex syndrome: Subjective Pt doing better after pacemaker; has some discomfort at ppm site Physical Exam Vital Signs (Past 24 Hours): Last Vital Signs Temp 36.7 C 07/13/18 11:31 Pulse 92 H 07/13/18 11:31 Resp 16 07/13/18 11:31 BP 94/55 L 07/13/18 11:31 Pulse Ox 97 07/13/18 11:31 aaox3, NAD NC/AT, EOMI Supple No JVD Irregular/Irregular S1/S2, No murmur CTA b/l no w/r/r soft nt/nd no LE edema b/l skin intact no focal deficits left pectoral incision intact, no hematoma mild ecchymosis Results & Data Diagnostic Findings CXR: no PTX; leads implace Pacemaker Interrogation Today: Normal function ECG Additional Comments: Telemetry: AF with RVRl occasional V pacing overnight
--- NOTE | 2018-07-13 16:29 | Pulmonology Progress Note ---
Date of Service July 13, 2018 Assessment & Plan (1) Symptomatic bradycardia: Impression: 1. Non-small cell lung CA. Right upper lobe, status post 4 cycles of chemotherapy. Inoperable due to her comorbidity. 2. COPD. 3. Bradycardia status post pacemaker placement today. 4. History of A. fib. 5. Right-sided pleural effusion, status post thoracentesis, transudate in nature likely related to CHF. Plan: 1. Transudate pleural effusion. Continue treatment for CHF. 2. Treatment per cardiology. 3. Diuresis. 4. May resume Eliquis. 5. Patient can be discharged home. Thank you, will follow as needed. Subjective Doing better today, no pain, no shortness of breath, no hemoptysis no hematoma at the site of thoracentesis. Physical Exam Vital Signs (Past 24 Hours): Last Vital Signs Temp 36.7 C 07/13/18 15:40 Pulse 87 07/13/18 15:40 Resp 23 07/13/18 15:40 BP 92/60 L 07/13/18 15:40 Pulse Ox 97 07/13/18 15:40 Physical Exam: Vital signs are stable, borderline blood pressure, no fever, O2 sat 97% on 3 L which is at baseline, positive JVP, left newly placed pacemaker, S1-S2, distant breath sounds bilaterally but clear, abdomen is benign, kyphosis, no edema, digit changes in the periphery, no rash. Small area of ecchymosis in the back fading away at the site of thoracentesis. Results & Data Laboratory Results Pleural fluid are consistent with transudate. Diagnostic Findings Chest x-ray without pneumothorax.
--- NOTE | 2018-07-13 16:33 | Hospitalist Progress Note ---
Date of Service July 13, 2018 Assessment & Plan (1) Chest pain: ASSESSMENT AND PLAN: This is a 78-year-old female who presents with chest pain and presents with nausea and shortness of breath and dizziness. Tachy-Rex syndrome -Chest pain and symptoms of dizziness due to tach-rex syndrome on admission, and also seen to have junctional bradycardia -Acute coronary syndrome ruled out; Echocardiogram no segmental wall motion abnormalities: Ejection Fraction of 60 to 65% with left atrial enlargement suggestive of diastolic dysfunction and moderate to severe tricuspid regurgitation -Pacemaker was placed on 07/12/18 -Continue aspirin and metoprolol, continue Eliquis Right-sided pleural effusion -status post thoracentesis on 07/12/18 total amount of fluid was drained was 1000 mL of dark yellow fluid, transudate in nature Lower extremity edema -possible that right sided pleural effusion is from diastolic dysfunction -continue Lasix Chronic kidney disease stage III Chronic obstructive pulmonary disease -Continue home inhalers Non-small cell lung Cancer Right upper lobe, status post 4 cycles of chemotherapy CAD (coronary artery disease): History of inferior [place] in 1992. Status post angioplasty of the right coronary artery. Residual LAD disease noted at the time of the remote catheterization Continue aspirin and metoprolol Deep venous thrombosis prophylaxis, on Eliquis Subjective Patient reported some tenderness of the left chest where pacemaker device is in. The incisions are closed. Patient reports breathing is at baseline as she is chronically on oxygen 3 liters/min. Denies vomiting or abdominal pain. No acute distress Physical Exam Vital Signs (Past 24 Hours): Last Vital Signs Temp 36.7 C 07/13/18 15:40 Pulse 87 07/13/18 15:40 Resp 23 07/13/18 15:40 BP 92/60 L 07/13/18 15:40 Pulse Ox 97 07/13/18 15:40 Constitutional: WD/WN, vitals as above Eyes: PERRL, conjunctivae normal, anicteric sclerae EOM intact bilaterally ENMT: external ear and nose normal, oropharynx normal Neck: trachea midline, no thyromegaly Respiratory: normal respiratory effort Cardiovascular: Rate/Rhythm: regular rate Chest (Breasts): Chest: + pacemaker (closed inscission site) Gastrointestinal (Abdomen): normal bowel sounds, soft, nontender, no hepatosplenomegaly Musculoskeletal: Head/Neck/Chest: normocephalic Neurologic: PERRL, EOMI, accommodation nl, no face palsy, no dysarthria CN's II-XI intact bilaterally Psychiatric: A+Ox3, euthymic affect (1) Chest pain Chest pain type: unspecified Qualified Code(s): R07.9 - Chest pain, unspecified
--- NOTE | 2018-07-13 21:40 | Operative Report ---
DATE OF OPERATION: 07/12/2018 PREOPERATIVE DIAGNOSIS: Tachybrady syndrome. POSTOPERATIVE DIAGNOSIS: Same. PROCEDURE: Single chamber rate responsive permanent pacemaker under fluoroscopic guidance along with peripheral venogram. SURGEON: Alea Healy DO ENGAGEMENT EXECUTIVE: None. ANESTHESIA: Monitored conscious sedation administered under my supervision by Carla villatoro. Start time 8:36, end time 9:45. Total of 3 mg of Versed and 75 mcg of fentanyl. INTRAVENOUS FLUIDS: 31 mL. ANTIBIOTICS: 1 gram of Ancef. CONTRAST: 10 mL. BLOOD LOSS: Less than 30 mL. URINE OUTPUT: Not applicable. SPECIMENS: None. FINDINGS: See below. DRAINS: None. INDICATIONS: This is a 78-year-old female with past medical history for permanent atrial fibrillation on Eliquis as well as high-dose AV lea blockers, hypertension, hyperlipidemia, coronary artery disease status post inferior myocardial infarction in 1992 as well as a PCI to the RCA in the past and she has some residual LAD disease, lung cancer status post chemotherapy in March 2018, COPD, gastroesophageal reflux disease. She was admitted to [facility] due to dizziness, found to have evidence of tachybrady syndrome. Her AV lea blockers were tried to titrate down, but she kept continuing to have AFib with rapid ventricular response, so a pacemaker was recommended. CONSENT: Consent was obtained prior to the patient going into electrophysiology lab. The patient was informed of the risks, benefits, and alternatives of the procedure. Risks include but not limited to sudden cardiac , cardiac arrhythmias, cerebrovascular accident, myocardial infarction, injury to the blood vessels, chamber of the heart, lung, bleeding, and infection. The patient understood these risks and agreed to the procedure as planned. Informed consent was obtained. DESCRIPTION OF THE PROCEDURE: The patient was brought into the electrophysiology lab in a fasting state. The patient was connected to continuous cardiac monitoring. A timeout was performed to ensure patient identity and procedure correctly. The patient was prepped and draped over the left infraclavicular space in normal surgical standard fashion. Moderate conscious sedation was given throughout the procedure for patient's comfort level. Chauncey precautions were maintained throughout the procedure. A 10 mL of 1% lidocaine and bupivacaine mixture were given in the left deltopectoral groove. Incision was made in the left deltopectoral groove. Blunt dissection was performed down to identify the cephalic vein. The cephalic vein was identified, but it was small and I was unable to thread a wire, so I tied that off and then did a peripheral venogram using 10 mL of IV contrast diluted in 10 mL of saline followed by a 20 mL flush to identify the axillary vein and axillary venous access was obtained with the needle stick without any problems. The guidewire was inserted without any resistance. An 8-Lao sheath was inserted over the guidewire without any resistance. Guidewire and dilator removed. Then the right ventricular pacing lead was advanced into right ventricle and positioned into right ventricular apex under fluoroscopic guidance. There was adequate pacing and sensing thresholds and no diaphragmatic stimulation with high output pacing. The 8-Lao sheath was peeled away and lead was fixated to pectoralis muscle using 0 silk suture. A pacemaker pocket was created using blunt dissection over the pectoralis muscle within the pectoralis fascia. The pocket was flushed with copious amounts of bacitracin and saline wash and inspected for hemostasis. The pulse generator was then attached to leads, making sure that the pins were in appropriate position, passed, set screws, and set screws were all tightened. The pulse generator was then placed in the pocket, making sure that the lead was lying flat beneath the device and a stay stitch using 0 silk suture was used to secure the device to the pectoralis muscle. An Susana stat was placed in the pocket as patient was going back on [facility]. The pocket was then closed in a 3-layer fashion using 2-0 Vicryl interrupted suture followed by 3-0 Vicryl interrupted suture followed by 4-0 running Monocryl and Dermabond was applied followed by a pressure dressing. EQUIPMENT: 1. Pulse generator is a [employer] Ashly XT SR MRI SureScan [id number], serial number [id number]. 2. Right ventricular lead, Medtronic 5076-58 cm, serial number [id number]. INTRAOPERATIVE TESTING: Right ventricular lead: R-waves 14.9 millivolts, impedance 1178 ohms, threshold 0.6 volts at 0.5 milliamps. FINAL MEASUREMENTS THROUGH THE DEVICE: Right ventricular lead: R-waves 15.8 millivolts, impedance 1026 ohms, threshold 0.75 volts at 0.4 milliseconds. FINAL PARAMETERS: VVIR 60/130. Right ventricular amplitude 3.5 volts, pulse width 0.4 milliseconds, sensitivity 1.2 millivolts. IMPRESSION: Successful implantation of single chamber rate responsive permanent pacemaker under fluoroscopic guidance secondary to tachybrady syndrome. PLAN: Monitor patient overnight, 12-lead ECG, chest x-ray. She is not allowed to lift the left elbow or left shoulder for 1 month. She cannot lift more than 10 pounds with the left arm for 2 weeks. She can shower in 2 days, let water run over the incision, do not scrub it. She should follow in our device clinic in [facility] for a device and wound check on 07/22/2018 at 12:00 p.m. Would restart her AV lea blockers as during the case she kept going fast and slow and she can restart her Eliquis. I attest to the content of the Intraoperative Record and any orders documented therein. Any exception s are noted below.
[2018-07-14 06:39] LABS: BUN Creatinine Ratio 19.4 (10-20); Calcium 8.4 mg/dl (8.5-10.1); Creatinine Clr Calc Pharmacy 21.6 ml/min; Est GFR (African American) 39.6; Est GFR (Non-African American) 34.2; Potassium 3.9 mmol/L (3.5-5.1)
[2018-07-14] MEDS: ASPIRIN 81 MG ECTAB PO SCH (07:52)
[2018-07-14] MEDS: POTASSIUM CHLORIDE 20 MEQ TABCR PO SCH (07:53)
[2018-07-14] MEDS: FOLIC ACID 1 MG TAB PO SCH (07:53)
[2018-07-14] MEDS: dilTIAZem HCL 180 MG CAPCR PO SCH (07:53)
[2018-07-14] MEDS: PANTOprazole 40 MG TAB PO SCH (07:53)
[2018-07-14] MEDS: METOPROLOL TARTRATE 100 MG TAB PO SCH (07:53)
[2018-07-14] MEDS: APIXABAN 2.5 MG TAB PO SCH (07:53)
[2018-07-14] MEDS: FUROSEMIDE 40 MG TAB PO SCH (07:54)
[2018-07-14] MEDS: LIDOCAINE 5% 1 PATCH TD SCH (07:54)
[2018-07-14] MEDS: DOCUSATE SODIUM 100 MG CAP PO SCH (07:54)
[2018-07-14] MEDS: BUDESONIDE/FORMOTEROL FUMARATE 160/4.5 60 PUFFS/INHALER INH SCH (07:54)
[2018-07-14] MEDS: TIOTROPIUM BROMIDE 5 PUFF/90 MCG INH INH SCH (07:54)
--- NOTE | 2018-07-14 10:02 | Cardiology Progress Note ---
Date of Service July 14, 2018 Assessment & Plan (1) Tachy-rex syndrome: s/p single lead PPM placement, tolerated well outpatient medical regimen resumed with good rate control would d/c home on current doses of metoprolol, eliquis and cardizem ok to d/c to home from cardiac standpoint my office will call to arrange cardiac f/u including pacer care (2) Chest pain: likely due to pleural effusions no resolved will send home on lasix 40mg po daily to stay ahead of fluid accumulation along with potassium supplementation already scheduled to see me next week will check a bmp at that visit (3) Adenocarcinoma, lung: Physical Exam Vital Signs (Past 24 Hours): Last Vital Signs Temp 36.8 C 07/14/18 06:53 Pulse 89 07/14/18 06:53 Resp 18 07/14/18 06:53 BP 107/66 07/14/18 06:53 Pulse Ox 96 07/14/18 06:53 (1) Chest pain Chest pain type: unspecified Qualified Code(s): R07.9 - Chest pain, unspecified
--- NOTE | 2018-07-14 10:22 | Cardiology Progress Note ---
Date of Service July 13, 2018 Assessment & Plan (1) Tachy-rex syndrome: s/p single lead PPM placement, tolerated well now with afib with rvr metoprolol restarted and smaller dose of cardizem given 07/11, will resume cardizem cd 360mg po daily today and follow rates eliquis to be restarted once ok with pulmonary (2) Chest pain: likely due to pleural effusions no resolved will start daily lasix to prevent future episodes (3) Adenocarcinoma, lung: Subjective Late entry for visit of 07/13/18 Pt seen and examined with daughter at bedside, states that she feels well. Slight pocket discomfort but denies cp, sob, palpitations, lightheadedness or dizziness. tele reviewed: alternating vpaced and afib with rvr Review of Systems All systems reviewed & are unremarkable except as noted in HPI & below Physical Exam Vital Signs (Past 24 Hours): Last Vital Signs Temp 36.8 C 07/14/18 06:53 Pulse 89 07/14/18 06:53 Resp 18 07/14/18 06:53 BP 107/66 07/14/18 06:53 Pulse Ox 96 07/14/18 06:53 Physical Exam: General: Awake, alert and oriented x 3. No acute distress. HEENT: Normocephalic, atraumatic. Pupils equal, round and reactive to light and accommodation. Extraocular muscles are intact. Anicteric sclera. Moist mucous membranes. Neck: No JVD. No bruit. Cardiovascular: irregularly irregular, unable to appreciate murmur, rub or gallop. Pulmonary: Clear to auscultation bilaterally. No rales, rhonchi, or wheezing. Abdomen: Bowel sounds x 4, soft. No rebound, guarding or tenderness. No organomegaly. Extremities: No clubbing, cyanosis or edema. +2 pedal pulses bilaterally. Skin: Warm and dry. (1) Chest pain Chest pain type: unspecified Qualified Code(s): R07.9 - Chest pain, unspecified
[2018-07-14 11:57] VITALS: BP 115/71; PULSE 69; TEMP 97.7; O2SAT 98
--- NOTE | 2018-07-14 13:07 | Hospitalist Progress Note ---
Date of Service July 14, 2018 Assessment & Plan (1) Chest pain: ASSESSMENT AND PLAN: This is a 78-year-old female who presents with chest pain and presents with nausea and shortness of breath and dizziness. Tachy-Roderick syndrome -Chest pain and symptoms of dizziness due to tach-roderick syndrome on admission, and also seen to have junctional bradycardia -Acute coronary syndrome ruled out; Echocardiogram no segmental wall motion abnormalities: Ejection Fraction of 60 to 65% with left atrial enlargement suggestive of diastolic dysfunction and moderate to severe tricuspid regurgitation -Pacemaker was placed on 07/12/18 -Continue aspirin and metoprolol, continue Eliquis -continue furosemide -Patient also prescribed furosemide 40 mg daily to prevent future pleural effusions -For pain of the pacemaker site Patient may take tramadol 50 mg every 8 hours as needed for moderate pain (12 tablets prescribed); Patient may take acetaminophen 325 mg every 6 hours as needed for mild pain -outpatient pacemaker wound check Right-sided pleural effusion -status post thoracentesis on 07/12/18 total amount of fluid was drained was 1000 mL of dark yellow fluid, transudate in nature -continue furosemide -Patient also prescribed furosemide 40 mg daily to prevent future pleural effusions Lower extremity edema -possible that right sided pleural effusion is from diastolic dysfunction -leg edema has resolved -continue furosemide 40 mg daily Chronic kidney disease stage III Chronic obstructive pulmonary disease -Continue home inhalers Non-small cell lung Cancer Right upper lobe, status post 4 cycles of chemotherapy continue outpatient follow up CAD (coronary artery disease): History of inferior HI in 1992. Status post angioplasty of the right coronary artery. Residual LAD disease noted at the time of the remote catheterization Continue aspirin and metoprolol Deep venous thrombosis prophylaxis, on Eliquis Discharge Diagnosis Tachy-roderick syndrome, s/p pacemaker placement, Right-sided pleural effusion, diastolic dysfunction, Chronic kidney disease stage III, Non-small cell lung Cancer Discharge Instructions Follow up appointments 07/19/2018 10:30 AM Provider Timothy Arroyo Jr., DO Department Cardiology, [facility] 07/20/2018 11:20 AM Provider Binu Lewis DO Department General Internal Medicine [facility] device and wound check in [facility] Cardiology Wednesday07/22/2018 at 12pm 08/31/2018 10:45 AM Provider Benjy Shaffer MD Department Hematology/Oncology [facility] 09/06/2018 11:00 AM Provider Pamela Easton MD Department Nephrology, [facility] PDMP System was checked and patient does not have any active narcotic medications prior to hospitalization but does have active Lorazepam prescription Patient may take tramadol 50 mg every 8 hours as needed for moderate pain (12 ta blets prescribed) Patient may take acetaminophen 325 mg every 6 hours as needed for mild pain Patient also prescribed furosemide 40 mg daily to prevent future pleural effusions Subjective Patient reports breathing is at baseline as she is chronically on oxygen 3 liters/min. Denies vomiting or abdominal pain. No acute distress. Patient reported some tenderness of the left chest where pacemaker device is in but she is tolerating the discomforts. The incisions are closed. Physical Exam Vital Signs (Past 24 Hours): Last Vital Signs Temp 36.5 C 07/14/18 12:48 Pulse 69 07/14/18 12:48 Resp 16 07/14/18 12:48 BP 115/71 07/14/18 12:48 Pulse Ox 98 07/14/18 12:48 Constitutional: WD/WN, vitals as above Eyes: PERRL, conjunctivae normal, anicteric sclerae EOM intact bilaterally ENMT: external ear and nose normal, oropharynx normal Neck: trachea midline, no thyromegaly Respiratory: normal respiratory effort Cardiovascular: Rate/Rhythm: regular rate Chest (Breasts): Chest: + pacemaker Gastrointestinal (Abdomen): normal bowel sounds, soft, nontender, no hepatosplenomegaly Musculoskeletal: Head/Neck/Chest: normocephalic Neurologic: PERRL, EOMI, accommodation nl, no face palsy, no dysarthria CN's II-XI intact bilaterally Psychiatric: A+Ox3, euthymic affect (1) Chest pain Chest pain type: unspecified Qualified Code(s): R07.9 - Chest pain, unspecified
--- NOTE | 2018-07-14 13:12 | Discharge Summary ---
Date of Service July 14, 2018 Admission HPI Per Admitting Provider DATE OF ADMISSION: 07/10/2018 CHIEF COMPLAINT: Chest pain and dizziness. 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 Received 4 cycles of chemo and there is a plan for lobectomy. It was not done because she was desaturating. Right now she is dependent on 3 L of oxygen all the time. History of pleural effusion, started on Lasix by pulmonary, but advised to stop last Wednesday because her kidney function was getting worse. History of hypertension. COPD, mild. History of atrial fibrillation, history of GA, GERD, chronic kidney disease stage III, anxiety, hyperlipidemia, diabetes, not on any medications, who lives with her son who is handicapped. Was brought in because she has some chest pain and dizziness today. The patient has some chest pain on the left side, mild in nature, no radiation, associated with some nausea, she became clammy, and also has some dizziness and she was brought into the ER. In the ER, EKG showed junctional rhythm with bradycardia and later improved to sinus rhythm. Currently, she is in sinus rhythm and she is feeling better. Currently no chest pain or shortness of breath or nausea. Resting comfortably. Family in the room. Has some headache, no blurred visions. Appetite is not that great, but she swallows okay and denies any cough, no abdominal pain. Normal bowel and bladder movements. No hematuria, no burning micturition, no melena or hematochezia. She says she walks with a walker at home, but she could not walk much far because she gets short of breath easily. Currently in the ER while resting she is doing okay. ALLERGIES: AMBIEN, LISINOPRIL. PAST MEDICAL HISTORY: As mentioned above. PAST SURGICAL HISTORY: Knee arthroscopy, carpal tunnel surgery, , colonoscopies, appendectomy, total hysterectomy. MEDICATIONS: The patient is on Ativan 0.5 mg p.o. at bedtime p.r.n., Symbicort 160/4.5 mg 2 puffs inhalation b.i.d., diltiazem ER 360 mg p.o. daily, aspirin 81 mg p.o. daily, Spiriva 2 puffs daily, Colace 100 mg p.o. b.i.d., MiraLax 17 grams p.o. b.i.d., Eliquis 2.5 mg p.o. b.i.d., magnesium 400 mg p.o. b.i.d., calcium carbonate 1250 mg p.o. 4 times a day, folic acid 1 mg p.o. daily, Lopressor 100 mg p.o. b.i.d., hydrocodone/acetaminophen 5/325 mg one tablet 3-4 times daily as needed, Zofran 8 mg p.o. t.i.d. p.r.n., Protonix 40 mg p.o. daily, albuterol 2 puffs every 6 hours p.r.n., nitroglycerin 0.4 mg sublingual p.r.n. FAMILY HISTORY: Significant for father at age 55 of COPD. Mother had stroke, CAD, hypertension, diabetes. Sister has hypertension. SOCIAL HISTORY: Lives with her son. Former smoker, quit in 1992. Prior to that, smoked half pack a day for 33 years. No alcohol use, no drug use. Admission Exam Per Admitting Provider REVIEW OF SYSTEMS: As per HPI. Rest of the review of systems are negative. PHYSICAL EXAMINATION: GENERAL: The patient is old and frail, not in acute distress. VITAL SIGNS: Temperature 36.7; pulse was 40s when she came in, currently 71; blood pressure 142/76, oxygen 92% on 3 liters. HEENT: No pallor, no icterus. Pupils equal, round, and reactive to light. NECK: No JVD, no neck masses, no carotid bruits. CARDIOVASCULAR: S1, S2 heard, regular rate and rhythm, no murmur, no gallop. RESPIRATORY SYSTEM: Normal AP diameter. No accessory muscle use. No wheezing, no crackles. ABDOMEN: Soft, bowel sounds present. Nontender. No distention. CENTRAL NERVOUS SYSTEM: Cranial nerves II-XII grossly intact, nonfocal. EXTREMITIES: Bilateral lower extremity edema present. Principal Diagnosis Tachy-roderick syndrome, s/p pacemaker placement, Right-sided pleural effusion, diastolic dysfunction, Chronic kidney disease stage III, Non-small cell lung Cancer Discharge Exam Constitutional WD/WN, vitals as above Eyes PERRL, conjunctivae normal, anicteric sclerae EOM intact bilaterally ENMT external ear and nose normal, oropharynx normal Neck trachea midline, no thyromegaly Respiratory normal respiratory effort Cardiovascular Rate/Rhythm: regular rate Chest (Breasts) Chest: + pacemaker Gastrointestinal (Abdomen) normal bowel sounds, soft, nontender, no hepatosplenomegaly Musculoskeletal Head/Neck/Chest: normocephalic Neurologic PERRL, EOMI, accommodation nl, no face palsy, no dysarthria CN's II-XI intact bilaterally Psychiatric A+Ox3, euthymic affect Discharge Data Allergies Allergy/AdvReac Type Severity Reaction Status Date / Time lisinopril Allergy Intermediate RASH Verified 07/10/18 18:25 zolpidem AdvReac Severe hallucinati Verified 07/10/18 18:25 ons Consultations 07/10/18 19:19 ED Decision to Admit Stat 07/10/18 22:19 Consult Case Management - Discharge Planning Routine 07/11/18 08:00 Consult Cardiology Routine 07/12/18 09:20 Consult Pulmonology Routine Procedures Performed Operation Date: 07/12/18 09:00 Actual Procedures p Pacer with Ventricular Lead - Alea Healy DO s Venogram, Unilateral - Alea Healy DO Ordered Studies 07/12/18 09:30 EP Lab Images for PACS ONCE Hospital Course (1) Chest pain: ASSESSMENT AND PLAN: This is a 78-year-old female who presents with chest pain and presents with nausea and shortness of breath and dizziness. Tachy-Roderick syndrome -Chest pain and symptoms of dizziness due to tach-roderick syndrome on admission, and also seen to have junctional bradycardia -Acute coronary syndrome ruled out; Echocardiogram no segmental wall motion abnormalities: Ejection Fraction of 60 to 65% with left atrial enlargement suggestive of diastolic dysfunction and moderate to severe tricuspid regurgitation -Pacemaker was placed on 07/12/18 -Continue aspirin and metoprolol, continue Eliquis -continue furosemide -Patient also prescribed furosemide 40 mg daily to prevent future pleural effusions -For pain of the pacemaker site Patient may take tramadol 50 mg every 8 hours as needed for moderate pain (12 tablets prescribed); Patient may take acetaminophen 325 mg every 6 hours as needed for mild pain -outpatient pacemaker wound check Right-sided pleural effusion -status post thoracentesis on 07/12/18 total amount of fluid was drained was 1000 mL of dark yellow fluid, transudate in nature -continue furosemide -Patient also prescribed furosemide 40 mg daily to prevent future pleural effusions Lower extremity edema -possible that right sided pleural effusion is from diastolic dysfunction -leg edema has resolved -continue furosemide 40 mg daily Chronic kidney disease stage III Chronic obstructive pulmonary disease -Continue home inhalers Non-small cell lung Cancer Right upper lobe, status post 4 cycles of chemotherapy continue outpatient follow up CAD (coronary artery disease): History of inferior GA in 1992. Status post angioplasty of the right coronary artery. Residual LAD disease noted at the time of the remote catheterization Continue aspirin and metoprolol Deep venous thrombosis prophylaxis, on Eliquis Discharge Diagnosis Tachy-roderick syndrome, s/p pacemaker placement, Right-sided pleural effusion, diastolic dysfunction, Chronic kidney disease stage III, Non-small cell lung Cancer Discharge Instructions Follow up appointments 07/19/2018 10:30 AM Provider Timothy Arroyo Jr., DO Department Cardiology, [facility] 07/20/2018 11:20 AM Provider Binu Lewis DO Department General Internal Medicine [facility] device and wound check in [facility] Cardiology Wednesday07/22/2018 at 12pm 08/31/2018 10:45 AM Provider Benjy Shaffer MD Department Hematology/Oncology [facility] 09/06/2018 11:00 AM Provider Pamela Easton MD Department Nephrology, [facility] PDMP System was checked and patient does not have any active narcotic medications prior to hospitalization but does have active Lorazepam prescription Patient may take tramadol 50 mg every 8 hours as needed for moderate pain (12 tablets prescribed) Patient may take acetaminophen 325 mg every 6 hours as needed for mild pain Patient also prescribed furosemide 40 mg daily to prevent future pleural effusions Total Time Total Time Spent Total Time Spent (In Minutes): 40 minutes Total Time Includes: Examination of the Patient, Discharge Planning and Medication Reconciliation Discharge Plan Discharge Items Patient Disposition: Home - Self-Care Reason For Visit: CHEST PAIN,DIZZY,BRADYCARDIA Discharge Diagnosis: Tachy-roderick syndrome, s/p pacemaker placement, Right-sided pleural effusion, diastolic dysfunction, Chronic kidney disease stage III, Non- small cell lung Cancer Condition: Good Activity: As commented below Activity Comment: do not lift the left elbow over the left shoulder for 1 month Lifting: No more than 10 pounds Lifting Comment: do not lift more than 10 pounds with the left arm for 2 weeks Bathing Comment: can shower 07/14/2108-do not scrub the incision let water run over it Non-emergency contact: Primary Care Provider and [employer] Call non-emergency contact if: you have any medication questions Follow-up/Referrals: Binu Lewis DO [Primary Care Provider] - Diet: Heart Healthy Addtl Provider Instructions: Follow up appointments 07/19/2018 10:30 AM Provider Timothy Arroyo Jr., DO Department Cardiology, [facility] 07/20/2018 11:20 AM Provider Binu Lewis DO Department General Internal Medicine [facility] device and wound check in [facility] Cardiology Wednesday07/22/2018 at 12pm 08/31/2018 10:45 AM Provider Benjy Shaffer MD Department Hematology/Oncology [facility] 09/06/2018 11:00 AM Provider Pamela Easton MD Department Nephrology, [facility] PDMP System was checked and patient does not have any active narcotic medications prior to hospitalization but does have active Lorazepam prescription Patient may take tramadol 50 mg every 8 hours as needed for moderate pain (12 tablets prescribed) Patient may take acetaminophen 325 mg every 6 hours as needed for mild pain Patient also prescribed furosemide 40 mg daily to prevent future pleural effusions Prescriptions: New furosemide 40 mg Tablet 40 mg PO QAM 30 Days Qty: 30 RF: 0 tramadol 50 mg Tablet 50 mg PO Q8H PRN (Reason: severe pain) 4 Days Qty: 12 RF: 0 acetaminophen 325 mg tablet 325 mg PO Q6H PRN (Reason: mild pain) 5 Days Qty: 20 RF: 0 Continued metoprolol tartrate 100 mg Tablet 100 mg PO BID RF: 0 lorazepam 0.5 mg Tablet 0.5 mg PO HS PRN (Reason: Anxiety) RF: 0 pantoprazole 40 mg Tablet,Delayed Release (Dr/Ec) 40 mg PO DAILY RF: 0 albuterol sulfate [Ventolin HFA] 90 mcg/actuation Hfa Aerosol Inhaler 1 puff INHALATION Q6H PRN (Reason: SOB) RF: 0 Symbicort 160-4.5 mcg/actuation Hfa Aerosol Inhaler 2 puff INHALATION BID RF: 0 nitroglycerin 0.4 mg Tablet, Sublingual 0.4 mg Sublingual UD PRN (Reason: Chest Pain) RF: 0 Spiriva Respimat 2.5 mcg/actuation Mist 2 puff INHALATION DAILY RF: 0 folic acid 1 mg Tablet 1 mg PO DAILY RF: 0 lidocaine 5 % Adhesive Patch,Medicated 1 patch Transdermal DAILY Qty: 30 RF: 0 aspirin [Aspirin Low Dose] 81 mg Tablet,Delayed Release (Dr/Ec) 81 mg PO DAILY RF: 0 ondansetron HCl [Zofran] 8 mg Tablet 8 mg PO TID PRN (Reason: Nausea And Vomiting) RF: 0 diltiazem HCl 360 mg Capsule,Extended Release 24hr 360 mg PO DAILY RF: 0 docusate sodium [Colace] 100 mg Capsule 100 mg PO BID RF: 0 magnesium oxide 400 mg Capsule 400 mg PO BID RF: 0 Eliquis 2.5 mg Tablet 2.5 mg PO BID RF: 0 Discontinued tramadol [Ultram] 50 mg tablet 50 mg PO QID PRN (Reason: pain) Qty: 18 RF: 0 hydrocodone-acetaminophen 5-325 mg Tablet 1 tab PO QID PRN (Reason: Pain) RF: 0 Stand-Alone Forms: Call Back Authorization, [facility] Discharge Orders: Discharge Order (Routine); Ordered 07/14/18 Ordered By: Molina Riojas Admission Data Admit Date/Time: 07/12/18 16:24 Attending Provider: Molina Riojas Admit Provider: Jayson Diaz Primary Care Provider: Binu Lewis Other Providers: Jayson Diaz ; Timothy Arroyo ; Tma Chambers ; Darrius Avalos ; Brian Zhang ; Eliceo Sorto ; Enrique Laura ; Josselyn Donaldson ; Alea Healy ; Jose Cuevas ; Km Chicas ; Nikunj Arguello ; Frances Albert ; Michele Jones ; She Christina ; Raymundo Handley ; Bonny Gaines ; Maryam Garcia ; Chip Wolf ; Carli Carolina ; Timothy Zimmerman ; Trip Marítnez Service: Telemetry Other Interventions: Discharge Summary Assessment (RN) Last Done: 07/14/18 12:48
== END 2018-07-14 13:45 | disposition home or self-care (01) | DRG 243 ==
LOC: 2S 17:29 → ED 17:29 → SUATTDRO 19:58 → 2S 20:59 → SUATTDRO 07-12 16:24

== ENCOUNTER 2019-06-16 09:43 | Inpatient (IN) ==
--- NOTE | 2019-06-16 10:35 | XRay Report ---
SINGLE VIEW CHEST CLINICAL HISTORY: Dyspnea. FINDINGS: An AP, portable, upright chest radiograph is compared to study dated 04/14/2019. The examin ation is degraded by portable technique and patient rotation. A single lead cardiac pacemaker is un changed in position and partially obscures the left mid chest. The heart is enlarged. There is pulmon nimisha vascular congestion. There are small to moderate layering pleural effusions with bibasilar consol idation. No pneumothorax is seen. The skeletal structures are osteopenic. The bony thorax is grossly intact. IMPRESSION: 1. Cardiomegaly and cardiac pacemaker with evidence of congestive failure. 2. There are small to moderate pleural effusions with associated bibasilar consolidation. Electronically signed by: Michele Kelley M.D. 06/16/2019 10:33 AM
[2019-06-16 10:53] LABS: Basophils # (auto) 0.01 K/uL (0-0.2); Basophils % (auto) 0.1 %; Hematocrit (blood only) 36.3 % (37-47); Hemoglobin 12.1 g/dL (12.0-16.0); Immature Granulocytes # (auto) 0.02 K/uL (0.00-0.02); Immature Granulocytes % (auto) 0.3 %; Lymphocytes # (auto) 1.25 K/uL (1.2-3.4); Lymphocytes % (auto) 18.5 %; Mean Corpuscular Hemoglobin 32.9 pg (25-34); Mean Corpuscular Hgb Conc 33.3 g/dL (32-36); Mean Corpuscular Volume 98.6 fL (80-100); Mean Platelet Volume 9.7 fL (7.4-10.4); Monocytes # (auto) 0.65 K/uL (0.11-0.59); Monocytes % (auto) 9.6 %; Neutrophils # (auto) 4.82 K/uL (1.4-6.5); Neutrophils % (auto) 71.5 %; Platelet Count 216 K/uL (130-400); RDW Coefficient of Variation 14.7 % (11.5-14.5); RDW Standard Deviation 52.3 fL (36.4-46.3); Red Blood Count 3.68 M/uL (4.2-5.4); White Blood Count 6.75 K/uL (4.8-10.8)
[2019-06-16 11:03] LABS: INR 1.1 (0.9-1.1); Partial Thromboplastin Ratio 0.7; Partial Thromboplastin Time 20.1 Seconds (21.0-31.0); Prothrombin Time 10.9 Seconds (9.0-12.0)
[2019-06-16] MEDS ORDERED: FUROSEMIDE 40 MG/4 ML VIAL IV STA (11:22)
[2019-06-16] MEDS ORDERED: dilTIAZem HCl 5 MG/ML 5 ML VIAL IV STA (11:22)
[2019-06-16 11:29] LABS: Influenza A virus by PCR Neg for Influ A (Neg); Influenza B virus by PCR Neg for Influ B (Neg)
[2019-06-16 12:08] LABS: Albumin Globulin Ratio 0.6 (0.9-2); Albumin Level 2.6 gm/dl (3.4-5.0); BUN Creatinine Ratio 21.3 (10-20); Bilirubin,Total 3.2 mg/dl (0.2-1); Calcium 9.3 mg/dl (8.5-10.1); Creatinine Clr Calc Pharmacy 23.3 ml/min; Est GFR (African American) 39.7; Est GFR (Non-African American) 34.2; Magnesium 2.3 mg/dl (1.8-2.4); Potassium 4.1 mmol/L (3.5-5.1); Total Protein 6.6 gm/dl (6.4-8.2); Troponin I 0.03 ng/ml (0-0.045)
[2019-06-16 12:20] LABS: Appearance Urine Cloudy (Clear); Bacteria Urine Automated Negative (Negative); Bilirubin Urine Negative (Negative); Blood Urine 1+ (Negative); Color Urine Yellow; Glucose Urine UA Negative (Negative); Ketones Urine Negative (Negative); Leukocyte Esterase Urine 3+ (Negative); Nitrite Urine Negative (Negative); Specific Gravity Urine 1.013 (1.000-1.030); Urobilinogen Urine Negative (Negative); WBC Urine Automated >30 /hpf (0-5); pH Urine 7.5 (4.5-7.5)
[2019-06-16 12:30] LABS: Protein Urine 1+ (Negative); Sulfosalicylic Acid Urine Positive (Negative)
[2019-06-16] MEDS ORDERED: IOVERSOL 100ml IV PRN (12:58)
--- NOTE | 2019-06-16 13:13 | CT Scan Report ---
CT SCAN OF THE ABDOMEN AND PELVIS WITH IV CONTRAST CLINICAL HISTORY: Right upper quadrant abdominal pain. Lung cancer. COMPARISON STUDY: PET CT dated 08/24/2018. TECHNIQUE: Following the IV administration of 94 cc of Optiray 320, CT scan of the abdomen and pelvi s is performed from the lung bases to the proximal femora. Images are reviewed in the axial, sagittal , and coronal planes. IV contrast was administered without complication. A dose lowering technique wa s utilized adhering to the principles of ALARA. The examination is degraded by motion artifact, as we ll as by streak artifact from the arms which could not be elevated above the abdomen. CT DOSE: 389.98 mGy.cm FINDINGS: Lung bases: There is advanced atherosclerotic calcification of the thoracic aorta. The heart is enlar ged and without pericardial effusion. Pacemaker leads are noted. There is a moderate to large hiatal hernia. Emphysematous change is noted. There are moderate pleural effusions, right larger than left w ith associated consolidation. A 2.1 cm spiculated right upper lobe nodule is again seen on image #9. This has increased in size from 08/24/2018 PET examination. Liver: The contrast-enhanced liver is normal in size, contour, and attenuation. There is mild intrahe patic biliary ductal dilatation. The hepatic veins and portal veins are patent. Gallbladder: Gallbladder is markedly distended. The gallbladder wall is mildly thickened is there is pericholecystic fluid. The common bile duct is dilated measuring up to 1.6 cm in diameter. Spleen: Normal in size and attenuation. Pancreas: Moderately atrophic and grossly unremarkable. Adrenal glands: Unremarkable. Kidneys: The contrast enhanced kidneys are atrophic. There is mild bilateral hydronephrosis, likely d ue to marked bladder distention. The kidneys enhance symmetrically. Bilateral renal cysts measure up to 2.6 cm. Abdominal vasculature: The abdominal aorta is normal in course and caliber noting advanced atheroscle rotic calcification. Bowel: There is no bowel obstruction. Moderate fecal retention is seen throughout the colon. The appe ndix is not clearly identified. Peritoneum: There is no intraperitoneal free air or abdominal ascites. Lymphadenopathy: None. Pelvic viscera: The bladder is markedly distended. The bladder wall is thickened trabeculated indicat ing chronic outlet obstruction. Numerous bladder diverticula are noted. The bladder wall is hyperemic . The uterus is surgically absent. No adnexal lesion is seen. Skeletal structures: The skeletal structures are heterogeneously osteopenic. There is moderate lumbos acral spondylosis. No lytic or blastic lesions are seen. IMPRESSION: 1. The gallbladder is markedly distended. There is mild gallbladder wall thickening and pericholecyst ic fluid. The appearance is concerning for acute cholecystitis. Consider ultrasound for further asses sment. 2. There are moderate pleural effusions, right larger than left with associated bibasilar consolidati on. 3. Cardiomegaly and emphysema. 4. A 2.1 cm spiculated right upper lobe pulmonary lesion has increased in size from the 08/24/2018 PET examination. 5. The bladder is markedly distended. The bladder wall is thickened, hyperemic, and trabeculated kris cating chronic outlet obstruction. Correlate clinically and with urinalysis for evidence of superimpo sed cystitis/infection. 6. There is mild bilateral hydronephrosis, likely related to marked bladder distention. 7. Moderate constipation. 8. Additional findings as above.. ACT 112: Negative or not required by law. Electronically signed by: Michele Kelley M.D. 06/16/2019 1:12 PM
--- NOTE | 2019-06-16 13:57 | Surgery Consultation ---
Date of Consultation June 16, 2019 Assessment & Plan (1) Biliary colic: Patient does have a distended gallbladder with mild edema-may be from common bile duct obstruction She has a dilated common bile duct with elevated LFTs-she will need a GI evaluation Significant comorbidity-cardiopulmonary and some renal insufficiency He is on Eliquis She will require medical evaluation We may consider cholecystectomy at some point if she is medically stable-her cholecystitis appears to be worsening She is not medically stable she may need a cholecystostomy tube placed-this may need to be performed at a tertiary care center History of Present Illness History of Present Illness Asked to see the patient in the emergency room for possible cholecystitis She presented with shortness of breath and plane of some right upper quadrant pain found on CAT scan to have a distended gallbladder with mild thickening a common bile duct of 1.6 cm. Her total bilirubin is 3.2 with elevated AST ALT and alkaline phosphatase She also has a history of significant pleural effusions which are felt to be from cardiac etiology. He has had her centesis multiple times by Dr. Stern, her Beta Stacy- 11,296-she does have large pleural effusions on her CAT scan right greater than left Her bladder is significantly distended She has a history of atrial fibrillation on Eliquis She also has a pacemaker Allergies Allergy/AdvReac Type Severity Reaction Status Date / Time lisinopril Allergy Intermediate RASH Verified 06/16/19 11:45 zolpidem AdvReac Severe hallucinati Verified 06/16/19 11:45 ons Home Medications Home Medications Medication Instructions Recorded Confirmed Type lorazepam 0.5 mg PO HS PRN 04/21/18 06/16/19 History metoprolol tartrate 100 mg PO BID 04/21/18 06/16/19 History pantoprazole 40 mg PO DAILY 04/21/18 06/16/19 History Spiriva Respimat 2 puff INHALATION DAILY 04/28/18 06/16/19 History folic acid 1 mg PO DAILY 04/28/18 06/16/19 History nitroglycerin 0.4 mg SUBLINGUAL UD PRN 04/28/18 06/16/19 History Eliquis 2.5 mg PO BID 07/10/18 06/16/19 History aspirin [Aspirin Low Dose] 81 mg PO QAM 07/10/18 06/16/19 History diltiazem HCl 360 mg PO DAILY 07/10/18 06/16/19 History ondansetron HCl [Zofran] 8 mg PO TID PRN 07/10/18 06/16/19 History furosemide 40 mg tablet 40 mg PO BID #30 tab 12/20/18 06/16/19 History iron,carbonyl 65 mg-vitamin C 125 1 tab PO DAILY 12/21/18 06/16/19 History mg tablet,delayed release magnesium oxide 400 mg PO DAILY cap 12/21/18 06/16/19 History nystatin 100,000 unit/gram topical 1 appln TOP BID 12/21/18 06/16/19 History powder trazodone 50 mg tablet 50 mg PO HS 12/21/18 06/16/19 History albuterol sulfate [Ventolin HFA] 2 puff INHALATION QID PRN 12/30/18 06/16/19 History triamcinolone acetonide 0.1 % 1 appln TOP BID 03/28/19 06/16/19 History topical cream megestrol 400 mg/10 mL (40 mg/mL) 200 mg PO BID #240 ml 04/03/19 06/16/19 Rx oral suspension budesonide-formoterol HFA 160 2 puff INHALATION Q12H #10.2 gm 05/11/19 06/16/19 Rx mcg-4.5 mcg/actuation aerosol inhaler prochlorperazine maleate 10 mg PO Q6H PRN 06/16/19 06/16/19 History [Compazine] Patient History Medical History Anemia Cancer LUNG CANCER S/P RECENT CHEMO (COMPLETED 04/01/18) Chronic obstructive pulmonary disease GERD (gastroesophageal reflux disease) Hiatal hernia Hyperlipidemia Hypertension Myocardial Infarction 1992= MEDICAL [employer]NAGEMENT Osteoarthritis Osteoporosis Surgical History History of adenoidectomy History of appendectomy History of arthroscopy RIGHT KNEE History of cardiac cath 1992= NO STENTS History of cataract surgery BILATERAL History of section X4 History of colonoscopy History of hysterectomy JOSE WITH BSO History of lung surgery NAVIGATIONAL BRONCH/EBUS= 11/09/17= GRADE I VIEW, MAC 3, ETT 8.0 AT [facility] History of tonsillectomy History of tooth extraction Family History Grandfather (Paternal) Family hx of colon cancer Social History Preferred Language: Welsh Communication Ability: Effective Visual Impairment: No Limitations Hematologist Oncologist Required: No Beliefs That Will Affect Care: None Current Living Situation: Family Current Living Situation Comment: pt also has a caregiver come to her home Feels Safe at Home: Yes Smoking Status: Former smoker Cigarettes Per Day: 10 ; Second Hand Exposure: No ; Hx Alcohol Use: No Hx Substance Use: No Review of Systems Review of Systems: All systems reviewed & are unremarkable except as noted in HPI & below Physical Exam Constitutional: + thin; no acute distress Eyes: + anicteric sclerae Respiratory: + labored breathing (Mild) Cardiovascular: Rate/Rhythm: + irregularly irregular Chest (Breasts): Chest: + pacemaker Gastrointestinal (Abdomen): Patient has mild distention but soft He does have some right upper quadrant tenderness to deep palpation Skin: no rashes, warm and dry Neurologic: awake Psychiatric: Orientation: alert Results & Data Vital Signs (Past 12 Hours) Vital Signs Temp Pulse Pulse Resp BP BP Pulse Ox 06/16/19 13:34 99 H 23 146/85 H 98 06/16/19 11:30 104 H 23 146/75 H 97 06/16/19 10:43 100 H 22 157/84 H 98 06/16/19 10:42 95 H 22 98 06/16/19 09:57 36.9 C 90 23 151/91 H 98 I did review her CAT scan PG Care Time/CCT Total # of Minutes Spent Total Time Spent with Patient: Total time spent is greater than 50% in coordination of care (as documented) at patient's floor/unit and/or counseling patient: Coding Level of Care Code 18745 Office/Outpt Visit, New Diagnoses Biliary colic K80.50
--- NOTE | 2019-06-16 14:49 | History & Physical Report ---
Date of Service June 16, 2019 Assessment & Plan (1) Biliary colic: Uncertain if acute infection present, but it is clear there is no sepsis, leukocytosis, and she is afebrile. Will cover with Zosyn for now with elevated risk of compromise from infection in an elderly female. Appreciate surgery and GI input into the case. Currently holding Eliquis in preparation for possible EUS/ERCP on Wednesday. Dr. Horan is on over the weekend and will be prepped about the case. The patient cannot receive an MRCP because of a pacemaker. Will continue serial abdominal exams and daily labwork. Clear liquid diet. (2) CHF exacerbation: Received Lasix 40mg IV in the ER with brisk diuresis and improvement of breathing. Appears to be comfortable and not in respiratory distress. Consult cardiology. 1200mL out today in response to the IV Lasix today. Reordered for BID to be adjusted by [employer] and primary hospitalist taking over case in am. (3) Diabetes mellitus, type II: Not on therapy, A1C pending. Hold on BSG checks (4) Adenocarcinoma, lung: Pt states she is in remission, however, there is an increase in the spiculated RUL nodule on the CT image today which has changed from imaging done last year. Will need to be reviewed by her PCP/lung specialist (5) DVT prophylaxis: Eliquis on hold in preparation for possible procedures. Heparin SQ for now. Full COde Dispo-uncertain at this time. Sabiha Degroot DO [facility] History of Present Illness Chief Complaint: SOB/vomiting Primary Care Provider: Binu Lewis DO 79 yo F reports some ?able SOB that has waxed and waned over the past few days. Some possible productive cough. However, the real issue today is that she was up all night vomiting with acute RUQ pain. Workup in the ER includes a CT a/p revealing a dilated CBD to 1.6cm and a distended gallbladder with concerns for cholecystitis. She doesn't have a WBC elevation. TB is 3.2, AST 376, ALT 183, ALK PHOS 350. BNP is 11, 296 and CXR reveals evidence of CHF. She was given Lasix in the ER and is diuresing well and feeling better from a breathing standpoint already. She denies any chest pain, SOB right now, nausea (states she is not hungry though), Allergies Allergy/AdvReac Type Severity Reaction Status Date / Time lisinopril Allergy Intermediate RASH Verified 06/16/19 11:45 zolpidem AdvReac Severe hallucinati Verified 06/16/19 11:45 ons Home Medications Home Medications Medication Instructions Recorded Confirmed Type lorazepam 0.5 mg PO HS PRN 04/21/18 06/16/19 History metoprolol tartrate 100 mg PO BID 04/21/18 06/16/19 History pantoprazole 40 mg PO DAILY 04/21/18 06/16/19 History folic acid 1 mg PO DAILY 04/28/18 06/16/19 History nitroglycerin 0.4 mg SUBLINGUAL UD PRN 04/28/18 06/16/19 History Eliquis 2.5 mg PO BID 07/10/18 06/16/19 History aspirin [Aspirin Low Dose] 81 mg PO QAM 07/10/18 06/16/19 History diltiazem HCl 360 mg PO DAILY 07/10/18 06/16/19 History ondansetron HCl [Zofran] 8 mg PO TID PRN 07/10/18 06/16/19 History furosemide 40 mg tablet 40 mg PO BID #30 tab 12/20/18 06/16/19 History iron,carbonyl 65 mg-vitamin C 125 1 tab PO DAILY 12/21/18 06/16/19 History mg tablet,delayed release magnesium oxide 400 mg PO DAILY cap 12/21/18 06/16/19 History nystatin 100,000 unit/gram topical 1 appln TOP BID 12/21/18 06/16/19 History powder trazodone 50 mg tablet 50 mg PO HS 12/21/18 06/16/19 History albuterol sulfate [Ventolin HFA] 2 puff INHALATION QID PRN 12/30/18 06/16/19 History triamcinolone acetonide 0.1 % 1 appln TOP BID 03/28/19 06/16/19 History topical cream megestrol 400 mg/10 mL (40 mg/mL) 200 mg PO BID #240 ml 04/03/19 06/16/19 Rx oral suspension budesonide-formoterol HFA 160 2 puff INHALATION Q12H #10.2 gm 05/11/19 06/16/19 Rx mcg-4.5 mcg/actuation aerosol inhaler docusate sodium 100 mg PO BID 06/16/19 06/16/19 History polyethylene glycol 3350 [Miralax] 17 g PO QAM 06/16/19 06/16/19 History prochlorperazine maleate 10 mg PO Q6H PRN 06/16/19 06/16/19 History [Compazine] Past Med/Surg History Medical History Anemia Cancer LUNG CANCER S/P RECENT CHEMO (COMPLETED 04/01/18) Chronic obstructive pulmonary disease GERD (gastroesophageal reflux disease) Hiatal hernia Hyperlipidemia Hypertension Myocardial Infarction 1992= [employer]NAGEMENT Osteoarthritis Osteoporosis Surgical History History of adenoidectomy History of appendectomy History of arthroscopy RIGHT KNEE History of cardiac cath 1992= NO STENTS History of cataract surgery BILATERAL History of section X4 History of colonoscopy History of hysterectomy JOSE WITH BSO History of lung surgery NAVIGATIONAL BRONCH/EBUS= 11/09/17= GRADE I VIEW, MAC 3, ETT [address] 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 Beliefs That Will Affect Care: None Current Living Situation: Family Current Living Situation Comment: pt also has a caregiver come to her home Other Information That Helps Us Care for You: No Feels Safe at Home: Yes Safety Concerns: Feels Safe At This Time Smoking Status: Never smoker Cigarettes Per Day: 10 ; Second Hand Exposure: No ; Hx Alcohol Use: No Hx Substance Use: No Results & Data Vital Signs (Past 12 Hours) Vital Signs Temp Pulse Pulse Resp BP BP Pulse Ox 06/16/19 13:34 99 H 23 146/85 H 98 06/16/19 11:30 104 H 23 146/75 H 97 06/16/19 10:43 100 H 22 157/84 H 98 06/16/19 10:42 95 H 22 98 06/16/19 09:57 36.9 C 90 23 151/91 H 98 (1) CHF exacerbation Heart failure type: unspecified Qualified Code(s): I50.9 - Heart failure, unspecified
[2019-06-16] MEDS ORDERED: ALBUTEROL HFA 8 GM INHALER INH PRN (16:26)
[2019-06-16] MEDS ORDERED: NITROGLYCERIN SL 0.4 MG/TAB TAB SL PRN (16:26)
--- NOTE | 2019-06-16 16:34 | Emergency Department Note ---
Entered by Karina Villanueva acting as a scribe for History of Present Illness General Chief complaint: Shortness of Breath/Dyspnea Stated complaint: Increase shortness of breath Time Seen by Provider: 06/16/19 09:56 Source: patient History of Present Illness Provider complaint: shortness of breath Onset (ago): day(s) (several days) Location: chest Severity: similar to prior episodes Pain Consistency: + other (worsening) Relieved By: + none Exacerbated By: + none Associated symptoms: + cough and + other (+leg swelling, +weight loss) The patient is an 79 year old female w/ PMHx lung cancer, HTN, DVT, pneumonia, COPD, and CAD who presents to the ED w/ CC of worsening shortness of breath beginning several days ago. The patient reports that she has been diagnosed with lung cancer 3 years ago and has been experiencing shortness of breath since then. She notes that her shortness of breath has worsened in the past several days. She notes that she has been experiencing a cough. She mentions that she wears oxygen at home. She notes that she has leg swelling. The patient reports that she has been experiencing weight loss. She mentions that sh e takes Eliquis. She denies any history of blood clots. Home Medications Home Medications Medication Instructions Recorded Confirmed Type lorazepam 0.5 mg PO HS PRN 04/21/18 06/16/19 History metoprolol tartrate 100 mg PO BID 04/21/18 06/16/19 History pantoprazole 40 mg PO DAILY 04/21/18 06/16/19 History folic acid 1 mg PO DAILY 04/28/18 06/16/19 History nitroglycerin 0.4 mg SUBLINGUAL UD PRN 04/28/18 06/16/19 History Eliquis 2.5 mg PO BID 07/10/18 06/16/19 History aspirin [Aspirin Low Dose] 81 mg PO QAM 07/10/18 06/16/19 History diltiazem HCl 360 mg PO DAILY 07/10/18 06/16/19 History ondansetron HCl [Zofran] 8 mg PO TID PRN 07/10/18 06/16/19 History furosemide 40 mg tablet 40 mg PO BID #30 tab 12/20/18 06/16/19 History iron,carbonyl 65 mg-vitamin C 125 1 tab PO DAILY 12/21/18 06/16/19 History mg tablet,delayed release magnesium oxide 400 mg PO DAILY cap 12/21/18 06/16/19 History nystatin 100,000 unit/gram topical 1 appln TOP BID 12/21/18 06/16/19 History powder trazodone 50 mg tablet 50 mg PO HS 12/21/18 06/16/19 History albuterol sulfate [Ventolin HFA] 2 puff INHALATION QID PRN 12/30/18 06/16/19 History triamcinolone acetonide 0.1 % 1 appln TOP BID 03/28/19 06/16/19 History topical cream megestrol 400 mg/10 mL (40 mg/mL) 200 mg PO BID #240 ml 04/03/19 06/16/19 Rx oral suspension budesonide-formoterol HFA 160 2 puff INHALATION Q12H #10.2 gm 05/11/19 06/16/19 Rx mcg-4.5 mcg/actuation aerosol inhaler docusate sodium 100 mg PO BID 06/16/19 06/16/19 History polyethylene glycol 3350 [Miralax] 17 g PO QAM 06/16/19 06/16/19 History prochlorperazine maleate 10 mg PO Q6H PRN 06/16/19 06/16/19 History [Compazine] Allergies Allergy/AdvReac Type Severity Reaction Status Date / Time lisinopril Allergy Intermediate RASH Verified 06/16/19 11:45 zolpidem AdvReac Severe hallucinati Verified 06/16/19 11:45 ons Past Med/Surg History Medical History Anemia Cancer LUNG CANCER S/P RECENT CHEMO (COMPLETED 04/01/18) Chronic obstructive pulmonary disease GERD (gastroesophageal reflux disease) Hiatal hernia Hyperlipidemia Hypertension Myocardial Infarction 1992= MEDICAL MANAGEMENT Osteoarthritis Osteoporosis Surgical History History of adenoidectomy History of appendectomy History of arthroscopy RIGHT KNEE History of cardiac cath 1992= NO STENTS History of cataract surgery BILATERAL History of section X4 History of colonoscopy History of hysterectomy JOSE WITH BSO History of lung surgery NAVIGATIONAL BRONCH/EBUS= 11/09/17= GRADE I VIEW, MAC 3, ETT 8.0 AT [facility] History of tonsillectomy History of tooth extraction Family History Grandfather (Paternal) Family hx of colon cancer Social History Preferred Language: Mohawk Communication Ability: Effective Visual Impairment: No 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 and A total of 10 systems reviewed and were otherwise negative Physical Exam Vital Signs Vital Signs - 24 hr 06/16/19 09:54 06/16/19 09:57 06/16/19 10:00 Temperature 36.9 C Temperature Source Oral Pulse Rate 101 H 90 108 H Pulse Rate [Apical] Pulse Rate from SpO2 Sensor Pulse Rhythm Regular Pulse Rhythm [Apical] Respiratory Rate 16 23 14 Respiratory Effort / Characteristics Short of Breath Respiratory Depth Respiratory Pattern Regular Blood Pressure 151/91 H 151/91 H 152/90 H Blood Pressure [Right Arm] Blood Pressure Mean 108 111 99 Blood Pressure Mean [Right Arm] Blood Pressure Position [Right Arm] Pulse Oximetry 98 Oxygen Delivery Method Nasal Cannula Oxygen Flow Rate 3 Sepsis Recent Fever Within 48 Hours No Sepsis New/Unexplained Change in Mental Status No Sepsis Action Taken by Nursing No Action Required 06/16/19 10:37 06/16/19 10:42 06/16/19 10:43 Temperature Temperature Source Pulse Rate 97 H 95 H Pulse Rate [Apical] 100 H Pulse Rate from SpO2 Sensor Pulse Rhythm Regular Pulse Rhythm [Apical] Irregular Respiratory Rate 37 H 22 22 Respiratory Effort / Characteristics Respiratory Depth Respiratory Pattern Regular Blood Pressure 157/84 H Blood Pressure [Right Arm] 157/84 H Blood Pressure Mean 101 Blood Pressure Mean [Right Arm] 108 Blood Pressure Position [Right Arm] Pulse Oximetry 98 98 Oxygen Delivery Method Nasal Cannula Nasal Cannula Oxygen Flow Rate 3 3 Sepsis Recent Fever Within 48 Hours Sepsis New/Unexplained Change in Mental Status Sepsis Action Taken by Nursing 06/16/19 11:00 06/16/19 11:30 06/16/19 11:31 Temperature Temperature Source Pulse Rate 94 H 98 H 96 H Pulse Rate [Apical] 104 H Pulse Rate from SpO2 Sensor 97 H 104 H 102 H Pulse Rhythm Pulse Rhythm [Apical] Irregular Respiratory Rate 16 18 18 Respiratory Effort / Characteristics Respiratory Depth Respiratory Pattern Blood Pressure 135/90 146/75 H Blood Pressure [Right Arm] 146/75 H Blood Pressure Mean 110 101 Blood Pressure Mean [Right Arm] 98 Blood Pressure Position [Right Arm] Pulse Oximetry 98 97 95 Oxygen Delivery Method Nasal Cannula Oxygen Flow Rate 3 Sepsis Recent Fever Within 48 Hours Sepsis New/Unexplained Change in Mental Status Sepsis Action Taken by Nursing 06/16/19 12:00 06/16/19 12:30 06/16/19 13:21 Temperature Temperature Source Pulse Rate 105 H 121 H Pulse Rate [Apical] Pulse Rate from SpO2 Sensor 100 H 109 H Pulse Rhythm Pulse Rhythm [Apical] Respiratory Rate 19 25 H 25 H Respiratory Effort / Characteristics Respiratory Depth Respiratory Pattern Blood Pressure 142/112 H Blood Pressure [Right Arm] Blood Pressure Mean 118 Blood Pressure Mean [Right Arm] Blood Pressure Position [Right Arm] Pulse Oximetry 92 91 Oxygen Delivery Method Oxygen Flow Rate Sepsis Recent Fever Within 48 Hours Sepsis New/Unexplained Change in Mental Status Sepsis Action Taken by Nursing 06/16/19 13:30 06/16/19 13:34 06/16/19 14:00 Temperature Temperature Source Pulse Rate 110 H 84 Pulse Rate [Apical] 99 H Pulse Rate from SpO2 Sensor 114 H Pulse Rhythm Pulse Rhythm [Apical] Irregular Respiratory Rate 25 H 30 H Respiratory Effort / Characteristics Spontaneous Respiratory Depth Respiratory Pattern Regular Blood Pressure 146/85 H Blood Pressure [Right Arm] 146/85 H Blood Pressure Mean 92 Blood Pressure Mean [Right Arm] 105 Blood Pressure Position [Right Arm] Pulse Oximetry 98 96 Oxygen Delivery Method Nasal Cannula Oxygen Flow Rate 3 Sepsis Recent Fever Within 48 Hours Sepsis New/Unexplained Change in Mental Status Sepsis Action Taken by Nursing 06/16/19 14:30 06/16/19 15:00 06/16/19 15:25 Temperature Temperature Source Pulse Rate 110 H Pulse Rate [Apical] 112 H Pulse Rate from SpO2 Sensor 117 H 115 H Pulse Rhythm Pulse Rhythm [Apical] Respiratory Rate 15 18 Respiratory Effort / Characteristics Respiratory Depth Respiratory Pattern Blood Pressure Blood Pressure [Right Arm] 126/82 Blood Pressure Mean Blood Pressure Mean [Right Arm] 96 Blood Pressure Position [Right Arm] Sitting Pulse Oximetry 96 95 99 Oxygen Delivery Method Nasal Cannula Oxygen Flow Rate Sepsis Recent Fever Within 48 Hours Sepsis New/Unexplained Change in Mental Status Sepsis Action Taken by Nursing 06/16/19 15:30 06/16/19 16:16 06/16/19 16:23 Temperature Temperature Source Pulse Rate 112 H Pulse Rate [Apical] 107 H Pulse Rate from SpO2 Sensor 102 H Pulse Rhythm Pulse Rhythm [Apical] Respiratory Rate 29 H 22 Respiratory Effort / Characteristics Non-Labored Respiratory Depth Normal Respiratory Pattern Blood Pressure Blood Pressure [Right Arm] 126/104 H Blood Pressure Mean Blood Pressure Mean [Right Arm] 111 Blood Pressure Position [Right Arm] Pulse Oximetry 96 96 Oxygen Delivery Method Nasal Cannula Nasal Cannula Oxygen Flow Rate 3 Sepsis Recent Fever Within 48 Hours Sepsis New/Unexplained Change in Mental Status Sepsis Action Taken by Nursing GENERAL: Well nourished, NAD, nasal canula in place, non-toxic. EYE EXAM: Normal conjunctiva. PERRL, no anisocoria and EOM's grossly intact w/o pain. OROPHARYNX: Moist mucous membranes. Grossly normal dentition. NECK: Supple, no nuchal rigidity, no adenopathy, non-tender. No signs of meningismus. LUNGS: Diffuse crackles throughout lungs. Normal chest wall mechanics. HEART: NSR, no MRG. ABDOMEN: Abdomen soft, right upper quadrant tenderness, normo-active bowel sounds, no masses, no rebound or guarding. BACK: No CVA TTP. SKIN: No rashes and no bruising. UPPER EXTREMITIES: Upper extremities are grossly normal. LOWER EXTREMITIES: 3+ symmetric bilateral edema. No calf pain. NEURO EXAM: A&O x3, cranial nerves II-XII grossly intact, normal speech, moves all 4 extremities on command w/o issue. Course Course 1001: The patient was evaluated in room C7, and a complete history and physical examination were performed. 1120: I reevaluated the patient and updated her on her results. She notes that she has been experiencing right upper quadrant pain. 1330: I reviewed the patient's case with Dr. Bond [facility] Surgery. He will evaluate the patient for further management. 1409: I discussed the patient's case with Dr. Kaylynn Solis, she reports that she will evaluate the patient and talk to Dr. Bond [facility] Surgery about potentially transferring the patient. 1500: I reevaluated the patient and updated her on her treatment plan. Dr. Chester- [facility], is at bedside and will further evaluate the patient. Administered Medications Ioversol (Optiray 320 100ml) 94 ml IV ONCE PRN PRN Reason: Interaction Checking Stop: 06/20/19 12:57 Last Admin: 06/16/19 12:58 Dose: 94 ml Documented by: [id number] Discontinued Medications Diltiazem HCl (Cardizem) 10 mg IV NOW STA Stop: 06/16/19 11:23 Last Admin: 06/16/19 11:40 Dose: 10 mg Documented by: [id number] Cosigned by: [id number] Furosemide (Lasix) 40 mg IV NOW STA Stop: 06/16/19 11:23 Last Admin: 06/16/19 11:40 Dose: 40 mg Documented by: [id number] Medical Decision Making Medical Records Attestation: I reviewed the patient's medical records. Home Medications Current Medication List: was personally reviewed by me Laboratory Data Attestation: I reviewed the patient's lab results. Result diagrams: 06/16/19 10:40 06/16/19 11:34 Lab Results 06/16/19 06/16/19 06/16/19 Range/Units 10:40 10:40 10:40 WBC 6.75 (4.8-10.8) K/uL RBC 3.68 L (4.2-5.4) M/uL Hgb 12.1 (12.0-16.0) g/dL Hct 36.3 L (37-47) % MCV 98.6 (80-100) fL MCH 32.9 (25-34) pg MCHC 33.3 (32-36) g/dL RDW Std Deviation 52.3 H (36.4-46.3) fL RDW Coeff of Ilya 14.7 H (11.5-14.5) % Plt Count 216 (130-400) K/uL MPV 9.7 (7.4-10.4) fL Immature Gran % (Auto) 0.3 % Neut % (Auto) 71.5 % Lymph % (Auto) 18.5 % [place] % (Auto) 9.6 % Eos % (Auto) 0.0 % Baso % (Auto) 0.1 % Immature Gran # (Auto) 0.02 (0.00-0.02) K/uL Neut # (Auto) 4.82 (1.4-6.5) K/uL Lymph # (Auto) 1.25 (1.2-3.4) K/uL [place] # (Auto) 0.65 H (0.11-0.59) K/uL Eos # (Auto) 0.00 (0-0.5) K/uL Baso # (Auto) 0.01 (0-0.2) K/uL PT 10.9 (9.0-12.0) Seconds INR 1.1 (0.9-1.1) APTT 20.1 L (21.0-31.0) Seconds PTT Ratio 0.7 Sodium Cancelled Potassium Cancelled Chloride Cancelled Carbon Dioxide Cancelled Anion Gap Cancelled BUN Cancelled Creatinine Cancelled Est Cr Clr Drug Dosing Cancelled Est GFR ( Amer) Cancelled Est GFR (Non-Af Amer) Cancelled BUN/Creatinine Ratio Cancelled Glucose Cancelled Calcium Cancelled Magnesium Cancelled Total Bilirubin Cancelled AST Cancelled ALT Cancelled Alkaline Phosphatase Cancelled Troponin I Cancelled NT-Pro-B Natriuret Pep Cancelled Total Protein Cancelled Albumin Cancelled Globulin Cancelled Albumin/Globulin Ratio Cancelled Specimen Hemolysis Urine Color Urine Appearance (Clear) Urine pH (4.5-7.5) Ur Specific [place] (1.000-1.030) Urine Protein (Negative) Urine Glucose (UA) (Negative) Urine Ketones (Negative) Urine Blood (Negative) Urine Nitrite (Negative) Urine Bilirubin (Negative) Urine Urobilinogen (Negative) Ur Leukocyte Esterase (Negative) Urine WBC (Auto) (0-5) /hpf Urine RBC (Auto) (0-4) /hpf U Hyaline Cast (Auto) (0-5) /lpf U Epithel Cells (Auto) (0-5) /lpf Urine Bacteria (Auto) (Negative) Influenza Type A (PCR) (Neg) Influenza Type B (PCR) (Neg) 06/16/19 06/16/19 06/16/19 Range/Units 10:40 11:34 12:05 WBC (4.8-10.8) K/uL RBC (4.2-5.4) M/uL Hgb (12.0-16.0) g/dL Hct (37-47) % MCV (80-100) fL MCH (25-34) pg MCHC (32-36) g/dL RDW Std Deviation (36.4-46.3) fL RDW Coeff of Ilya (11.5-14.5) % Plt Count (130-400) K/uL MPV (7.4-10.4) fL Immature Gran % (Auto) % Neut % (Auto) % Lymph % (Auto) % [place] % (Auto) % Eos % (Auto) % Baso % (Auto) % Immature Gran # (Auto) (0.00-0.02) K/uL Neut # (Auto) (1.4-6.5) K/uL Lymph # (Auto) (1.2-3.4) K/uL [place] # (Auto) (0.11-0.59) K/uL Eos # (Auto) (0-0.5) K/uL Baso # (Auto) (0-0.2) K/uL PT (9.0-12.0) Seconds INR (0.9-1.1) APTT (21.0-31.0) Seconds PTT Ratio Sodium 139 Potassium 4.1 Chloride 105 Carbon Dioxide 28 Anion Gap 6.0 BUN 31 H Creatinine 1.44 H Est Cr Clr Drug Dosing 23.3 Est GFR ( Amer) 39.7 Est GFR (Non-Af Amer) 34.2 BUN/Creatinine Ratio 21.3 H Glucose 109 H Calcium 9.3 Magnesium 2.3 Total Bilirubin 3.2 H AST 376 H ALT 183 H Alkaline Phosphatase 350 H Troponin I 0.030 NT-Pro-B Natriuret Pep 02949 H Total Protein 6.6 Albumin 2.6 L Globulin 4.0 Albumin/Globulin Ratio 0.6 L Specimen Hemolysis Urine Color Yellow Urine Appearance Cloudy A (Clear) Urine pH 7.5 (4.5-7.5) Ur Specific [place] 1.013 (1.000-1.030) Urine Protein 1+ H (Negative) Urine Glucose (UA) Negative (Negative) Urine Ketones Negative (Negative) Urine Blood 1+ H (Negative) Urine Nitrite Negative (Negative) Urine Bilirubin Negative (Negative) Urine Urobilinogen Negative (Negative) Ur Leukocyte Esterase 3+ H (Negative) Urine WBC (Auto) >30 H (0-5) /hpf Urine RBC (Auto) 5-10 H (0-4) /hpf U Hyaline Cast (Auto) 1-5 (0-5) /lpf U Epithel Cells (Auto) 10-20 H (0-5) /lpf Urine Bacteria (Auto) Negative (Negative) Influenza Type A (PCR) Neg for Influ A (Neg) Influenza Type B (PCR) Neg for Influ B (Neg) Imaging Data Radiologist's Impression: Radiology results as stated below per my review and the radiologist's interpretation: SINGLE VIEW CHEST CLINICAL HISTORY: Dyspnea. FINDINGS: An AP, portable, upright chest radiograph is compared to study dated 04/14/2019. The examination is degraded by portable technique and patient rotation. A single lead cardiac pacemaker is unchanged in position and partially obscures the left mid chest. The heart is enlarged. There is pulmonary vascular congestion. There are small to moderate layering pleural effusions with bibasilar consolidation. No pneumothorax is seen. The skeletal structures are osteopenic. The bony thorax is grossly intact. IMPRESSION: 1. Cardiomegaly and cardiac pacemaker with evidence of congestive failure. 2. There are small to moderate pleural effusions with associated bibasilar consolidation. Electronically signed by: Michele Kelley M.D. 06/16/2019 10:33 AM ECG Data Attestation: I personally reviewed and interpreted this ECG as follows: Indication: + SOB/dyspnea Rate (beats per minute): 100 Rhythm: + atrial fibrillation ECG Intervals/blocks: + Normal QRS ECG ST segments: + T-wave inversions (Inferior) ECG Findings: + PVCs Blood Pressure Blood Pressure Findings: Elevated blood pressure Blood Pressure Disposition: further management by hospitalist [facility] Narrative Differential diagnosis: Etiologies such as infections, reactive airway disease, pneumonia, pneumothorax, COPD, CHF, cardiac ischemia, pulmonary embolism, musculoskeletal, gastrointestinal, as well as others were entertained. The patient is an 79 year old female w/ PMHx lung cancer, HTN, DVT, pneumonia, COPD, and CAD who presents to the ED w/ CC of worsening shortness of breath beginning several days ago. Patient was seen in eval at the bedside. The patient was presenting from home due to concern for increasing shortness of breath. The patient does have multiple medical comorbidities including COPD and CHF. Patient does have a history of A. fib. The patient's rhythm somewhat difficult to ascertain but may be in A. fib believe less likely to be heart block although this is a possibility as the patient does appear to have occasional P waves. This is the case the patient very well may be in heart block. The patient is perfusing well and is not hypotensive. The patient had a bladder completed along with a chest x-ray. The patient did not take her morning medications. The patient does take diltiazem as well as Lasix. Patient is currently anticoagulated. The patient did have blood work that did show an elevated BNP with some chest congestion. The patient was given some diltiazem as well as Lasix as the patient does appear volume overloaded. The patient subsequently did get a CAT scan as the patient's friend was present at the bedside had reported that she had been complaining some right upper quadrant pain. After further palpation of the abdomen she does have right upper quadrant pain so CT abdomen pelvis was ordered. The patient's LFTs are elevated. The patient CT does show concern for acute cholecystitis. I did speak the on-call surgeon who recommended medical management and possible removal over the weekend. I did speak the on-call hospitalist who agreed to further evaluate treat the patient. Hospital stated they were discussed with the surgeon to ensure that procedure could be done here and if not talked about transfer to a tertiary center. I did discuss the findings with the patient. The patient will be admitted to the medicine service with surgical and GI consults. Appropriate to keep the patient here this time after further discussion with the specialist per the hospitalist. Impression & Plan Acute cholecystitis, CHF exacerbation, Volume overload, Stage 4 chronic kidney disease, Transaminitis Discharge Plan Visit Data Chief Complaint: Shortness of Breath/Dyspnea Stated Complaint: Increase shortness of breath ED Provider: Eduardo Fonseca Discharge Problem: Acute cholecystitis, CHF exacerbation, Volume overload, Stage 4 chronic kidney disease, Transaminitis Patient Disposition: Being Evaluated by Hospitalist Discharge Instructions Interventions: ED Discharge Assessment Last Done: 06/16/19 16:23 Forms Stand Alone Forms: My [employer] Prescriptions Prescriptions: No Action Symbicort 160-4.5 mcg/actuation HFA aerosol inhaler 2 puff INHALATION Q12H Qty: 10.2 RF: 11 furosemide 40 mg tablet 40 mg PO BID Qty: 30 RF: 0 Vitron-C 65 mg iron- 125 mg tablet,delayed release (DR/EC) 1 tab PO DAILY RF: 0 trazodone 50 mg tablet 50 mg PO HS RF: 0 nystatin 100,000 unit/gram powder 1 appln TOP BID RF: 0 triamcinolone acetonide 0.1 % cream 1 appln TOP BID RF: 0 megestrol 400 mg/10 mL (40 mg/mL) suspension 200 mg PO BID Qty: 240 RF: 3 metoprolol tartrate 100 mg Tablet 100 mg PO BID RF: 0 lorazepam 0.5 mg Tablet 0.5 mg PO HS PRN (Reason: Sleep) RF: 0 pantoprazole 40 mg Tablet,Delayed Release (Dr/Ec) 40 mg PO DAILY RF: 0 nitroglycerin 0.4 mg Tablet, Sublingual 0.4 mg Sublingual UD PRN (Reason: Chest Pain) RF: 0 folic acid 1 mg Tablet 1 mg PO DAILY RF: 0 prochlorperazine maleate [Compazine] 10 mg Tablet 10 mg PO Q6H PRN (Reason: Nausea) RF: 0 docusate sodium 100 mg Capsule 100 mg PO BID RF: 0 polyethylene glycol 3350 [Miralax] 17 gram/dose Powder 17 g PO QAM RF: 0 aspirin [Aspirin Low Dose] 81 mg Tablet,Delayed Release (Dr/Ec) 81 mg PO QAM RF: 0 ondansetron HCl [Zofran] 8 mg Tablet 8 mg PO TID PRN (Reason: Nausea And Vomiting) RF: 0 diltiazem HCl 360 mg Capsule,Extended Release 24hr 360 mg PO DAILY RF: 0 Eliquis 2.5 mg Tablet 2.5 mg PO BID RF: 0 magnesium oxide 400 mg magnesium capsule 400 mg PO DAILY RF: 0 albuterol sulfate [Ventolin HFA] 90 mcg/actuation Hfa Aerosol Inhaler 2 puff INHALATION QID PRN (Reason: Wheezing) RF: 0 Referrals Referrals: Binu Lewis DO [Primary Care Provider] - Discharge Problem: CHF exacerbation Qualifiers: Heart failure type: unspecified Qualified Code(s): I50.9 - Heart failure, unspecified Volume overload Qualifiers: Hypervolemia type: unspecified Qualified Code(s): E87.70 - Fluid overload, unspecified The scribe's documentation has been prepared under my direction and personally reviewed by me in its entirety. I confirm that the note above accurately reflects all work, treatment, procedures, and medical decision making performed by me.
[2019-06-16] MEDS ORDERED: PIPERACILL/TAZOBAC CONSULT ACTIVE PRN (16:45)
[2019-06-16] MEDS ORDERED: POLYETHYLENE (MIRALAX) 17 GM PACK PO PRN (16:59)
[2019-06-16] MEDS ORDERED: ONDANSETRON INJ 2 MG/ML 2 ML VIAL IV PRN (16:59)
[2019-06-16] MEDS ORDERED: PIPERACILLIN/TAZOBACTAM 3.375 GM in DEXTROSE 5% 100 ML IV ONE (17:00)
[2019-06-16] MEDS: ACETAMINOPHEN 325 MG TAB PO PRN (17:42)
[2019-06-16] MEDS: FLUTICASONE/VILANTEROL 100/25MCG 14 PUFFS/INHALER INH SCH (18:15)
[2019-06-16] MEDS: DOCUSATE SODIUM 100 MG CAP PO SCH (20:16)
[2019-06-16] MEDS: METOPROLOL TARTRATE 100 MG TAB PO SCH (20:17)
[2019-06-16] MEDS: HEPARIN SOD 5,000 UNIT/0.5 ML VIAL SQ SCH (21:20)
[2019-06-16] MEDS: PIPERACILLIN/TAZOBACTAM 3.375 GM in DEXTROSE 5% 100 ML IV SCH (21:22)
--- NOTE | 2019-06-16 22:05 | Electrocardiogram Report ---
Test Reason : Blood Pressure : / mmHG Vent. Rate : 100 BPM Atrial Rate : 468 BPM P-R Int : 000 ms QRS Dur : 062 ms QT Int : 340 ms P-R-T Axes : 000 054 -31 degrees QTc Int : 438 ms Poor data quality, interpretation may be adversely affected Atrial fibrillation with occasional ventricular paced complex Low voltage QRS Cannot rule out Anterior infarct , age undetermined Nonspecific T wave abnormality Abnormal ECG When compared with ECG of 12-JUL-2018 11:59, Ventricular paced complex is now present Confirmed by Corey Steinberg ([id number]) on 06/16/2019 10:04:49 PM Referred By: REFERRED SELF Confirmed By:Corey Steinberg
[2019-06-17] MEDS: LORazepam 0.5 MG TAB PO PRN (01:11)
[2019-06-17] MEDS: PIPERACILLIN/TAZOBACTAM 3.375 GM in DEXTROSE 5% 100 ML IV SCH ×3 (05:37→21:40)
[2019-06-17] MEDS: HEPARIN SOD 5,000 UNIT/0.5 ML VIAL SQ SCH ×3 (05:39→21:40)
[2019-06-17 06:49] LABS: Estimated Average Glucose 123 mg/dl; Hemoglobin A1C 5.9 % (4.5-5.6)
[2019-06-17] MEDS: FLUTICASONE/VILANTEROL 100/25MCG 14 PUFFS/INHALER INH SCH (08:26)
[2019-06-17] MEDS: PANTOprazole 40 MG TAB PO SCH (08:27)
[2019-06-17] MEDS: METOPROLOL TARTRATE 100 MG TAB PO SCH ×2 (08:27→20:16)
[2019-06-17] MEDS: DOCUSATE SODIUM 100 MG CAP PO SCH ×2 (08:28→20:16)
[2019-06-17] MEDS ORDERED: FUROSEMIDE 40 MG in SYRINGE 0 ML IV SCH (09:00)
[2019-06-17] MEDS: dilTIAZem HCL 180 MG CAPCR PO SCH (09:26)
--- NOTE | 2019-06-17 09:59 | Ultrasound Report ---
ABDOMINAL ULTRASOUND, RIGHT UPPER QUADRANT HISTORY: BCD blockage, better visualize. COMPARISON: Abdomen and pelvis CT 06/16/2019. FINDINGS: Pancreas: The pancreatic tail is obscured by overlying bowel gas. The remaining portions of the pancr eas are within normal limits. Liver: Unremarkable. Gallbladder: Mild gallbladder wall thickening measuring up to 3 mm. Trace pericholecystic fluid and a positive sonographic Krishna sign. There are multiple small gallstones. Therefore, these findings lik suman represent acute cholecystitis. CBD: 7 mm in diameter. This is considered to be within the range normal limits given the patient's ag e. Right kidney: Mild hydronephrosis, unchanged. There is an 8 mm upper pole cyst. Miscellaneous: Right pleural effusion is again noted. IMPRESSION: 1. Above findings likely represent acute cholecystitis. Surgical consultation recommended. 2. Mild right hydronephrosis, unchanged. 3. Right pleural effusion. ACT 112: Negative or not required by law. Electronically signed by: Saúl Abdalla M.D. 06/17/2019 9:57 AM
--- NOTE | 2019-06-17 10:00 | Surgery Progress Note ---
Date of Service June 17, 2019 Assessment & Plan (1) Biliary colic: clinically stable AM labs pending U/S trace perichole fluid, wall 3 mm, CBD 7 mm Eliquis on hold await GI recs/LFTs Subjective just back from US, no nausea, some soreness, did well with clear liquids Physical Exam Gastrointestinal (Abdomen): Percussion/Palpation: + abdomen tender (minimal RUQ) and abdomen soft Results & Data Vital Signs (Past 12 Hours) Vital Signs Temp Pulse Pulse Resp BP BP Pulse Ox 06/17/19 07:47 36.6 C 97 H 18 133/71 99 06/17/19 03:58 36.9 C 106 H 18 136/74 97 06/16/19 23:26 36.8 C 112 H 20 146/93 H 96 06/16/19 22:45 88 PG Care Time/CCT Total # of Minutes Spent Total Time Spent with Patient: Total time spent is greater than 50% in coordination of care (as documented) at patient's floor/unit and/or counseling patient: Coding Level of Care Code 10763 Subseq Hosp Care Lvl 1 Diagnoses Biliary colic K80.50
[2019-06-17 10:47] LABS: Hematocrit (blood only) 37.8 % (37-47); Hemoglobin 12.8 g/dL (12.0-16.0); Mean Corpuscular Hemoglobin 33.3 pg (25-34); Mean Corpuscular Hgb Conc 33.9 g/dL (32-36); Mean Corpuscular Volume 98.4 fL (80-100); Mean Platelet Volume 9.4 fL (7.4-10.4); Platelet Count 228 K/uL (130-400); RDW Coefficient of Variation 14.7 % (11.5-14.5); RDW Standard Deviation 53.5 fL (36.4-46.3); Red Blood Count 3.84 M/uL (4.2-5.4); White Blood Count 8.74 K/uL (4.8-10.8)
--- NOTE | 2019-06-17 11:21 | Surgery Progress Note ---
Date of Service June 17, 2019 Assessment & Plan (1) Biliary colic: Patient does not appear to have worsening acute cholecystitis Her a.m. labs are pending especially her liver function studies We are still considering cholecystectomy at some point depending on her medical status And GI work-up We would likely have anesthesia see the patient for their thoughts preop Patient is off her Eliquis Subjective Patient sitting on the edge of bed-no distress She seems to have slept well She is having less pain Physical Exam Constitutional: + ill appearing; no acute distress Chronic illness Respiratory: normal respiratory effort; no respiratory distress Cardiovascular: Rate/Rhythm: regular rate Gastrointestinal (Abdomen): Inspection/Auscultation: abdomen not distended Skin: no rashes, warm and dry Neurologic: awake Psychiatric: Orientation: alert Results & Data Vital Signs (Past 12 Hours) Vital Signs Temp Pulse Resp BP BP Pulse Ox 06/17/19 07:47 36.6 C 97 H 18 133/71 99 06/17/19 03:58 36.9 C 106 H 18 136/74 97 06/16/19 23:26 36.8 C 112 H 20 146/93 H 96 PG Care Time/CCT Total # of Minutes Spent Total Time Spent with Patient: Total time spent is greater than 50% in coordination of care (as documented) at patient's floor/unit and/or counseling patient: Coding Level of Care Code 46700 Inpt Consult Level 3 Diagnoses Biliary colic K80.50
[2019-06-17 11:38] LABS: Albumin Level 2.7 gm/dl (3.4-5.0); Bilirubin Direct 2.2 mg/dl (0-0.2); Bilirubin,Total 2.8 mg/dl (0.2-1); Calcium 9.2 mg/dl (8.5-10.1); Creatinine Clr Calc Pharmacy 18.7 ml/min; Est GFR (African American) 33.9; Est GFR (Non-African American) 29.2; Potassium 3.4 mmol/L (3.5-5.1); Total Protein 7.2 gm/dl (6.4-8.2)
--- NOTE | 2019-06-17 13:20 | Cardiology Consultation ---
Date of Consultation June 17, 2019 Assessment & Plan (1) Acute cholecystitis: Per surgical management. Symptoms of biliary colic at time of presentation with nausea and vomiting Mild volume overload improved since IV diuretics. Chronic pleural effusions present good oxygenation No acute contraindications to surgery although elevated risk due to multiple morbidities (2) Chronic kidney disease (CKD): Renal function appears stable. (3) Tachy-rex syndrome: Normally functioning pacemaker in place with atrial fibrillation rates mildly elevated as per in past in part secondary to acute complaints and lapse in medications Would resume metoprolol and diltiazem (4) Chronic atrial fibrillation: Patient anticoagulated with Eliquis: Hold Eliquis in anticipation of possible surgery. Rate control as above (5) Recurrent pleural effusion on right: Patient is received 2 doses of IV furosemide. Past effusions have been managed with repeat thoracenteses History of Present Illness Reason for Consultation: Abdominal pain, edema Requesting Physician: Dr Black Attending Physician: Kaelyn Black MD History of Present Illness Patient is a complex 79-year-old female with ongoing cardiac and medical issues 1.Permanent atrial fibrillation on chronic Eliquis anticoagulation. 2.Tachybrady syndrome status post single-lead permanent pacemaker placement, [employer] device, model [id number] . 3.Stage III non-small cell lung carcinoma with metastases to the nodes, 4.Chronic renal insufficiency. 5.Anemia. 6.Diabetes. 7.Hypertension 8. Chronic pleural effusions right greater than left with serial thoracenteses, cytology past negative Patient presents this admission noting several days a history of nausea and and vomiting were stated of admission. She had been mildly dyspneic as well. Had been unable to take her usual medications due to complaints for 2 to 3 days prior to presentation. Since admission she is received a single dose of IV furosemide with prompt diuresis. She is referred now for further evaluation. She denies any chest pain or discomfort notes no tachypalpitations syncope near syncope has been having some intermittent abdominal bloating and discomfort with acute event as described. No fevers or chills. No melena dysuria hematuria. Patient wears oxygen as recommended. Notes she is homebound and sedentary Allergies Allergy/AdvReac Type Severity Reaction Status Date / Time lisinopril Allergy Intermediate RASH Verified 06/16/19 11:45 zolpidem AdvReac Severe hallucinati Verified 06/16/19 11:45 ons Home Medications Home Medications Medication Instructions Recorded Confirmed Type lorazepam 0.5 mg PO HS PRN 04/21/18 06/16/19 History metoprolol tartrate 100 mg PO BID 04/21/18 06/16/19 History pantoprazole 40 mg PO DAILY 04/21/18 06/16/19 History folic acid 1 mg PO DAILY 04/28/18 06/16/19 History nitroglycerin 0.4 mg SUBLINGUAL UD PRN 04/28/18 06/16/19 History Eliquis 2.5 mg PO BID 07/10/18 06/16/19 History aspirin [Aspirin Low Dose] 81 mg PO QAM 07/10/18 06/16/19 History diltiazem HCl 360 mg PO DAILY 07/10/18 06/16/19 History ondansetron HCl [Zofran] 8 mg PO TID PRN 07/10/18 06/16/19 History furosemide 40 mg tablet 40 mg PO BID #30 tab 12/20/18 06/16/19 History iron,carbonyl 65 mg-vitamin C 125 1 tab PO DAILY 12/21/18 06/16/19 History mg tablet,delayed release magnesium oxide 400 mg PO DAILY cap 12/21/18 06/16/19 History nystatin 100,000 unit/gram topical 1 appln TOP BID 12/21/18 06/16/19 History powder trazodone 50 mg tablet 50 mg PO HS 12/21/18 06/16/19 History albuterol sulfate [Ventolin HFA] 2 puff INHALATION QID PRN 12/30/18 06/16/19 History triamcinolone acetonide 0.1 % 1 appln TOP BID 03/28/19 06/16/19 History topical cream megestrol 400 mg/10 mL (40 mg/mL) 200 mg PO BID #240 ml 04/03/19 06/16/19 Rx oral suspension budesonide-formoterol HFA 160 2 puff INHALATION Q12H #10.2 gm 05/11/19 06/16/19 Rx mcg-4.5 mcg/actuation aerosol inhaler docusate sodium 100 mg PO BID 06/16/19 06/16/19 History polyethylene glycol 3350 [Miralax] 17 g PO QAM 06/16/19 06/16/19 History prochlorperazine maleate 10 mg PO Q6H PRN 06/16/19 06/16/19 History [Compazine] Patient History Medical History Anemia Cancer LUNG CANCER S/P RECENT CHEMO (COMPLETED 04/01/18) Chronic obstructive pulmonary disease GERD (gastroesophageal reflux disease) Hiatal hernia Hyperlipidemia Hypertension Myocardial Infarction 1992= [employer]NAG[employer] Osteoarthritis Osteoporosis Surgical History History of adenoidectomy History of appendectomy History of arthroscopy RIGHT KNEE History of cardiac cath 1992= NO STENTS History of cataract surgery BILATERAL History of section X4 History of colonoscopy History of hysterectomy JOSE WITH BSO History of lung surgery NAVIGATIONAL BRONCH/EBUS= 11/09/17= GRADE I VIEW, MAC 3, ETT 8.0 AT [facility] History of tonsillectomy History of tooth extraction Family History Grandfather (Paternal) Family hx of colon cancer Social History Preferred Language: Russian Communication Ability: Effective Visual Impairment: No 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 Beliefs That Will Affect Care: None marital status: Current Living Situation: Family Current Living Situation Comment: pt also has a caregiver come to her home Other Information That Helps Us Care for You: No Feels Safe at Home: Yes Safety Concerns: Feels Safe At This Time Smoking Status: Never smoker Cigarettes Per Day: 10 ; Second Hand Exposure: No ; Hx Alcohol Use: No Hx Substance Use: No Review of Systems Review of Systems: All systems reviewed & are unremarkable except as noted in HPI & below Physical Exam Constitutional: + thin; no acute distress Eyes: PERRL, conjunctivae normal, anicteric sclerae ENMT: external ear and nose normal, oropharynx normal Neck: trachea midline, no thyromegaly Respiratory: Auscultation: + diminished lung sounds (Bibasilar. No rhonchi or wheeze) Cardiovascular: Rate/Rhythm: regular rate and regular rhythm Heart Sounds: normal S1 and normal S2 Extremities: + edema (Trace to 1+ lower extremity edema with contraction findings consistent with recent diuresis) Chest (Breasts): Chest: + pacemaker Gastrointestinal (Abdomen): Mildly distended with mild tenderness in the right upper quadrant. Positive bowel sound Neurologic: PERRL, EOMI, accommodation nl, no face palsy, no dysarthria Psychiatric: A+Ox3, euthymic affect Results & Data ([facility]) Vital Signs (Past 12 Hours) Vital Signs Temp Pulse Resp BP BP Pulse Ox 06/17/19 12:02 36.7 C 107 H 18 134/82 99 06/17/19 07:47 36.6 C 97 H 18 133/71 99 06/17/19 03:58 36.9 C 106 H 18 136/74 97 Laboratory Results Laboratory Results - last 24 hr 06/16/19 06/17/19 06/17/19 10:40 10:36 10:36 WBC 8.74 RBC 3.84 L Hgb 12.8 Hct 37.8 MCV 98.4 MCH 33.3 MCHC 33.9 RDW Std Deviation 53.5 H RDW Coeff of Ilya 14.7 H Plt Count 228 MPV 9.4 Sodium 137 Potassium 3.4 L D Chloride 102 Carbon Dioxide 29 Anion Gap 7.0 BUN 25 H Creatinine 1.64 H Est Cr Clr Drug Dosing 18.7 Est GFR ( Amer) 33.9 Est GFR (Non-Af Amer) 29.2 BUN/Creatinine Ratio 15.0 Glucose 79 Estimat Average Glucose 123 Hemoglobin A1c 5.9 H Calcium 9.2 Total Bilirubin 2.8 H Direct Bilirubin 2.2 H AST 419 H ALT 202 H Alkaline Phosphatase 408 H Total Protein 7.2 Albumin 2.7 L
--- NOTE | 2019-06-17 13:26 | Hospitalist Progress Note ---
Date of Service June 17, 2019 Assessment & Plan (1) Biliary colic: Likely acute cholecystitis Liver ultrasound did show mild gallbladder wall thickening, trace pericholecystic fluid and patient does have Krishna sign Continue Zosyn Will follow surgery recommendation of planned surgical intervention Appreciate GI recommendations The patient cannot receive an MRCP because of a pacemaker. (2) CHF exacerbation: Patient had good diuresis with IV Lasix with creatinine bumped this morning Has chronic pleural effusion Will resume patient's home Lasix from tomorrow Cardiology recommendation appreciated (3) Diabetes mellitus, type II: Not on therapy A1c is 5.9 Monitor blood glucose (4) Adenocarcinoma, lung: Pt states she is in remission, however, there is an increase in the spiculated RUL nodule on the CT image today which has changed from imaging done last year. Will need to be reviewed by her PCP/lung specialist outpatient (5) DVT prophylaxis: Eliquis on hold in preparation for possible procedures. Heparin SQ for now. Full COde Admission and Anticipated Discharge Date Admission Date: June 16, 2019 Subjective Patient reports that her nausea vomiting has resolved. She reports abdominal pain worse on the right side. Has chronic shortness of breath uses oxygen 2 to 3 L Denies any chest pain, cough Denies any palpitations Denies any headache, dizziness Denies any fevers Physical Exam Constitutional: Elderly woman in no obvious distress Respiratory: no respiratory distress Diminished lung sounds in lung bases, no crackles or wheezea Cardiovascular: Rate/Rhythm: + irregularly irregular S1, S2, 1+ bilateral pedal edema Gastrointestinal (Abdomen): Inspection/Auscultation: abdomen normal to inspection and normal bowel sounds; abdomen not distended Percussion/Palpation: + abdomen tender (Right upper quadrant) and abdomen soft; no guarding and abdomen not rigid Musculoskeletal: no cyanosis or clubbing, extremities motor strength 5/5 Neurologic: PERRL, EOMI, accommodation nl, no face palsy, no dysarthria Psychiatric: A+Ox3, euthymic affect Results & Data ([facility]) Vital Signs (Past 12 Hours) Vital Signs Temp Pulse Resp BP BP Pulse Ox 06/17/19 12:02 36.7 C 107 H 18 134/82 99 06/17/19 07:47 36.6 C 97 H 18 133/71 99 06/17/19 03:58 36.9 C 106 H 18 136/74 97 Laboratory Results Abnormal lab results 06/16/19 06/17/19 06/17/19 Range/Units 10:40 10:36 10:36 RBC 3.84 L (4.2-5.4) M/uL RDW Std Deviation 53.5 H (36.4-46.3) fL RDW Coeff of Ilya 14.7 H (11.5-14.5) % Potassium 3.4 L D (3.5-5.1) mmol/L BUN 25 H (7-18) mg/dl Creatinine 1.64 H (0.6-1.2) mg/dl Hemoglobin A1c 5.9 H (4.5-5.6) % Total Bilirubin 2.8 H (0.2-1) mg/dl Direct Bilirubin 2.2 H (0-0.2) mg/dl AST 419 H (15-37) U/L ALT 202 H (12-78) U/L Alkaline Phosphatase 408 H (45-117) U/L Albumin 2.7 L (3.4-5.0) gm/dl Diagnostic Findings Liver USS 1. Above findings likely represent acute cholecystitis. Surgical consultation recommended. 2. Mild right hydronephrosis, unchanged. 3. Right pleural effusion. CT Abd/Pelvis IMPRESSION: 1. The gallbladder is markedly distended. There is mild gallbladder wall thickening and pericholecystic fluid. The appearance is concerning for acute cholecystitis. Consider ultrasound for further assessment. 2. There are moderate pleural effusions, right larger than left with associated bibasilar consolidation. 3. Cardiomegaly and emphysema. 4. A 2.1 cm spiculated right upper lobe pulmonary lesion has increased in size from the 08/24/2018 PET examination. 5. The bladder is markedly distended. The bladder wall is thickened, hyperemic, and trabeculated indicating chronic outlet obstruction. Correlate clinically and with urinalysis for evidence of superimposed cystitis/infection. 6. There is mild bilateral hydronephrosis, likely related to marked bladder distention. 7. Moderate constipation. (1) CHF exacerbation Heart failure type: unspecified Qualified Code(s): I50.9 - Heart failure, unspecified
--- NOTE | 2019-06-17 18:19 | Consultation Report ---
DATE OF CONSULTATION: 06/17/2019 GASTROENTEROLOGY CONSULT NOTE CONSULT REQUESTED BY: Sabiha Degroot DO. REASON FOR CONSULTATION: I was asked by Dr. Degroot to consult on this woman for evaluation of abdominal pain and abnormal liver enzymes. HISTORY OF PRESENT ILLNESS: The patient is an 79-year-old and has a niece and friend present at the bedside. She presented with right upper quadrant pain and had some nausea and vomiting and eventually going to the Emergency Room. She was found to have a dilated common bile duct on imaging as well as a distended gallbladder with concerns for cholecystitis. Since admission, she was hydrated and put on antibiotics and she states she feels better, though does have some low level right upper quadrant pain. She has had no further vomiting, no fever or chills. She has a significant past medical history including chronic obstructive pulmonary disease, hiatal hernia, hypertension, status post OR, hyperlipidemia. OUTPATIENT MEDICATIONS: Include Protonix, Eliquis, aspirin, diltiazem, furosemide, trazodone, metoprolol, lorazepam p.r.n., numerous inhalers, Compazine p.r.n. ALLERGIES: SHE STATES SHE IS ALLERGIC TO LISINOPRIL AND ZOLPIDEM. SOCIAL HISTORY: She does not actively smoke and does not drink alcohol. FAMILY HISTORY: Significant for a grandfather with colon cancer. REVIEW OF SYSTEMS: As above, otherwise she has no recent productive cough though she does have a chronic cough and chronic shortness of breath and wears oxygen. She has had no new chest pains. She has had no change in vision or hearing. She denies any recent seizures. She denies any recent joint swelling. She has no easy bruising. She denies any new hot or cold intolerance. She denies any dysuria. She has had no rectal bleeding. She denies any depression. PHYSICAL EXAMINATION: GENERAL: Reveals a pleasant woman in no distress, sitting at the bedside with nasal cannula in place. VITAL SIGNS: Her most recent blood pressure is 134/82, pulse is 107, temperature is 36.7. SKIN: Anicteric. EYES: Show anicteric sclerae. MOUTH: Clear lesions. NECK: Thin but supple with no adenopathy. CHEST: Has diffuse rhonchorous breath sounds. HEART: Slightly tachycardic, but regular. ABDOMEN: Soft with good bowel sounds. She has some mild tenderness to deep palpation in the right upper quadrant but no rebound tenderness. EXTREMITIES: Warm with fair distal pulses. NEUROLOGIC: She is grossly intact and alert and oriented x3. LABORATORY DATA: Show a white blood cell count of 8.7 with a hemoglobin of 12.8. Liver enzymes showed a total bilirubin yesterday of 3.2, AST of 376, ALT 183, and alkaline phosphatase of 350 and today her total bilirubin has gone down to 2.8, AST is 419, ALT is 202, alkaline phosphatase is 408 today. IMAGING: Shows a liver ultrasound with mild gallbladder wall thickening, some trace pericholecystic fluid and multiple small gallstones, common bile duct was measured to be 7 mm and considered within normal range for her age on the ultrasound. IMPRESSION: An 79-year-old woman with evidence of gallbladder disease and abnormal liver enzymes that are concerning for possible choledocholithiasis as well. The common bile duct seems to be normal size on ultrasound, but the bilirubin is slightly elevated. At this point, I would recommend continuing hydration, her antibiotics and following her clinically. If her bilirubin continues to rise, she will need an ERCP. It may be reasonable to consider a combined ERCP and laparoscopic cholecystectomy if this is needed to minimize her anesthesia risk, but the timing of this will be determined clinically on how she is doing. Currently, she seems to be quite stable and it would be reasonable to give time for the Eliquis to wear off as well. Given her co morbid disease, the most conservative management would be best. BRO
[2019-06-18] MEDS: PIPERACILLIN/TAZOBACTAM 3.375 GM in DEXTROSE 5% 100 ML IV SCH ×2 (05:45→12:59)
[2019-06-18] MEDS: HEPARIN SOD 5,000 UNIT/0.5 ML VIAL SQ SCH ×3 (05:46→21:08)
[2019-06-18 06:51] LABS: Hematocrit (blood only) 32.3 % (37-47); Hemoglobin 10.8 g/dL (12.0-16.0); Mean Corpuscular Hemoglobin 32.7 pg (25-34); Mean Corpuscular Hgb Conc 33.4 g/dL (32-36); Mean Corpuscular Volume 97.9 fL (80-100); Mean Platelet Volume 9.2 fL (7.4-10.4); Platelet Count 169 K/uL (130-400); RDW Coefficient of Variation 14.5 % (11.5-14.5); RDW Standard Deviation 52.3 fL (36.4-46.3); White Blood Count 6.45 K/uL (4.8-10.8)
--- NOTE | 2019-06-18 06:51 | Surgery Progress Note ---
Date of Service June 18, 2019 Assessment & Plan (1) Acute cholecystitis: she is very stable from standpoint of gallbladder check am labs- has significant comorbidity if no ERCP- will need to determine urgency of cholecystectomy may consider Hida scan, see how she does w/o surgery consider advancing diet Subjective awake, alert no signif abd pain yasmin clear liquids Review of Systems 2 Review of Systems: All systems reviewed & are unremarkable except as noted in HPI & below Physical Exam Constitutional: no acute distress and not ill appearing Respiratory: normal respiratory effort; no respiratory distress Cardiovascular: Rate/Rhythm: + tachycardic (mild) Gastrointestinal (Abdomen): Inspection/Auscultation: abdomen not distended Percussion/Palpation: abdomen soft; abdomen nontender Skin: no rashes, warm and dry Neurologic: awake Psychiatric: Orientation: alert Results & Data Vital Signs (Past 12 Hours) Vital Signs Temp Pulse Pulse Resp BP Pulse Ox 06/18/19 02:55 36.7 C 78 20 116/74 94 06/17/19 23:00 36.6 C 74 18 111/67 95 06/17/19 22:21 107 H 06/17/19 19:45 36.4 C L 110 H 18 147/92 H 98 PG Care Time/CCT Total # of Minutes Spent Total Time Spent with Patient: Total time spent is greater than 50% in coordination of care (as documented) at patient's floor/unit and/or counseling patient: Coding Level of Care Code 36844 Inpt Consult Level 3 Diagnoses Acute cholecystitis K81.0
[2019-06-18 07:13] LABS: Albumin Level 2.2 gm/dl (3.4-5.0); Calcium 8.6 mg/dl (8.5-10.1); Creatinine Clr Calc Pharmacy 19.5 ml/min; Est GFR (African American) 35.7; Est GFR (Non-African American) 30.8; Potassium 2.9 mmol/L (3.5-5.1)
[2019-06-18 07:25] LABS: Albumin Globulin Ratio 0.6 (0.9-2); Bilirubin,Total 1.1 mg/dl (0.2-1); Globulin 3.5 gm/dl (2.5-4.0); Total Protein 5.7 gm/dl (6.4-8.2)
[2019-06-18] MEDS ORDERED: POTASSIUM CHLORIDE PWD 20 MEQ PACK PO ONE (07:30)
[2019-06-18] MEDS: POTASSIUM CHLORIDE / WTR 10 MEQ/100 ML PLCT IV SCH ×2 (07:59→09:34)
[2019-06-18] MEDS: FLUTICASONE/VILANTEROL 100/25MCG 14 PUFFS/INHALER INH SCH (08:00)
[2019-06-18] MEDS: PANTOprazole 40 MG TAB PO SCH (08:01)
[2019-06-18] MEDS: METOPROLOL TARTRATE 100 MG TAB PO SCH ×2 (08:01→21:00)
[2019-06-18] MEDS: dilTIAZem HCL 180 MG CAPCR PO SCH (08:01)
[2019-06-18] MEDS: DOCUSATE SODIUM 100 MG CAP PO SCH ×2 (08:01→21:00)
--- NOTE | 2019-06-18 11:08 | Hospitalist Progress Note ---
Date of Service June 18, 2019 Assessment & Plan (1) Biliary colic: Likely acute cholecystitis vs gallstones which may have passed considering improving LFT Liver ultrasound did show mild gallbladder wall thickening, trace pericholecystic fluid and patient does have Krishna sign Continue Zosyn for now Discussed with surgeon Dr Charlton. Patient may get cholecystectomy within the week Advancing diet. NPO PMN in preparation for possible surgery The patient cannot receive an MRCP because of a pacemaker. (2) CHF exacerbation: Patient had good diuresis with IV Lasix with creatinine bump Has chronic pleural effusion Lasix currently on hold At baseline home oxygen Cardiology recommendation appreciated (3) Diabetes mellitus, type II: Not on therapy A1c is 5.9 Monitor blood glucose (4) Adenocarcinoma, lung: Pt states she is in remission, however, there is an increase in the spiculated RUL nodule on the CT image today which has changed from imaging done last year. Will need to be reviewed by her PCP/lung specialist outpatient (5) DVT prophylaxis: Eliquis on hold in preparation for possible procedures. Heparin SQ for now. Full Code Admission and Anticipated Discharge Date Admission Date: June 16, 2019 Subjective Patient reports some improvement in abdominal pain, which is mostly on right Denies fevers, chills, nausea or vomiting. Physical Exam Constitutional: Elderly woman in no obvious distress on 2 L/min of nasal oxygen Eyes: PERRL, conjunctivae normal, anicteric sclerae ENMT: external ear and nose normal, oropharynx normal Respiratory: no respiratory distress Auscultation: + diminished lung sounds (Lung bases); no crackles, no rhonchi and no wheezes Cardiovascular: Rate/Rhythm: + irregularly irregular S1-S2, bilateral pedal edema present but much improved Gastrointestinal (Abdomen): Inspection/Auscultation: abdomen normal to ins pection and normal bowel sounds; abdomen not distended Percussion/Palpation: + abdomen tender (Right upper quadrant) and abdomen soft; no guarding and abdomen not rigid Musculoskeletal: no cyanosis or clubbing, extremities motor strength 5/5 Neurologic: PERRL, EOMI, accommodation nl, no face palsy, no dysarthria Psychiatric: A+Ox3, euthymic affect Results & Data ([facility]) Vital Signs (Past 12 Hours) Vital Signs Temp Pulse Pulse Resp BP Pulse Ox 06/18/19 07:43 36.9 C 86 16 96/58 L 99 02/23/20 07:01 90 06/18/19 02:55 36.7 C 78 20 116/74 94 Laboratory Results Abnormal lab results 06/18/19 06/18/19 06/18/19 Range/Units 06:39 06:39 12:37 RBC 3.30 L (4.2-5.4) M/uL Hgb 10.8 L (12.0-16.0) g/dL Hct 32.3 L (37-47) % RDW Std Deviation 52.3 H (36.4-46.3) fL Potassium 2.9 L (3.5-5.1) mmol/L BUN 22 H 24 H (7-18) mg/dl Creatinine 1.57 H 1.82 H (0.6-1.2) mg/dl Glucose 217 H (70-99) mg/dl Calcium 8.4 L (8.5-10.1) mg/dl Total Bilirubin 1.1 H D (0.2-1) mg/dl AST 274 H (15-37) U/L ALT 123 H (12-78) U/L Alkaline Phosphatase 280 H (45-117) U/L Total Protein 5.7 L D (6.4-8.2) gm/dl Albumin 2.2 L (3.4-5.0) gm/dl Albumin/Globulin Ratio 0.6 L (0.9-2) (1) CHF exacerbation Heart failure type: unspecified Qualified Code(s): I50.9 - Heart failure, unspecified
--- NOTE | 2019-06-18 12:17 | Cardiology Progress Note ---
Date of Service June 18, 2019 Assessment & Plan (1) Acute cholecystitis: Per surgical management. Symptoms of biliary colic at time of presentation with nausea and vomiting Mild volume overload improved since IV diuretics. Chronic pleural effusions present good oxygenation No acute contraindications to surgery although elevated risk due to multiple morbidities Will hold further IV diuretics Follow along as GI and surgery decide clinical course Anticoagulation approaching reversal, last dose Eliquis 06/15 (2) Chronic kidney disease (CKD): Renal function appears stable. (3) Tachy-rex syndrome: Normally functioning pacemaker in place with atrial fibrillation rates mildly elevated as per in past in part secondary to acute complaints and lapse in medications Would resume metoprolol and diltiazem (4) Chronic atrial fibrillation: Patient anticoagulated with Eliquis: Hold Eliquis in anticipation of possible surgery. Rate control as above Patient no longer anticoagulated by a.m. (5) Recurrent pleural effusion on right: Patient is received 2 doses of IV furosemide. Past effusions have been managed with repeat thoracenteses Currently compensated without complaint Subjective Patient seen and examined, chart, medications, telemetry reviewed. Minimal abdominal pain discomfort this morning. No chest pains or shortness of breath. No orthopnea or worsening peripheral edema Review of Systems Review of Systems: All systems reviewed & are unremarkable except as noted in HPI & below Physical Exam Constitutional: + thin; no acute distress Eyes: PERRL, conjunctivae normal, anicteric sclerae ENMT: external ear and nose normal, oropharynx normal Neck: trachea midline, no thyromegaly Respiratory: Auscultation: + diminished lung sounds (Right base only) Cardiovascular: Rate/Rhythm: + irregularly irregular Heart Sounds: normal S1 and normal S2 Extremities: + edema (Trace ) Chest (Breasts): Chest: + pacemaker Gastrointestinal (Abdomen): Percussion/Palpation: abdomen soft; abdomen nontender Neurologic: PERRL, EOMI, accommodation nl, no face palsy, no dysarthria Psychiatric: A+Ox3, euthymic affect Results & Data Vital Signs (Past 12 Hours) Vital Signs Temp Pulse Pulse Resp BP Pulse Ox 06/18/19 11:40 37.0 C 103 H 18 100/65 99 06/18/19 07:43 36.9 C 86 16 96/58 L 99 06/18/19 07:01 90 06/18/19 02:55 36.7 C 78 20 116/74 94
[2019-06-18 13:28] LABS: BUN Creatinine Ratio 13.3 (10-20); Calcium 8.4 mg/dl (8.5-10.1); Creatinine Clr Calc Pharmacy 16.8 ml/min; Est GFR (African American) 29.9; Est GFR (Non-African American) 25.8; Potassium 4.2 mmol/L (3.5-5.1)
[2019-06-18] MEDS: LORazepam 0.5 MG TAB PO PRN (21:08)
[2019-06-19] MEDS: PIPERACILLIN/TAZOBACTAM 3.375 GM in DEXTROSE 5% 100 ML IV SCH ×2 (03:12→14:00)
[2019-06-19] MEDS: HEPARIN SOD 5,000 UNIT/0.5 ML VIAL SQ SCH ×3 (05:29→21:34)
--- NOTE | 2019-06-19 05:41 | Surgery Progress Note ---
Date of Service June 19, 2019 Assessment & Plan (1) Common bile duct obstruction: Patient has likely passed stones through the common bile duct With the source being her gallbladder Plan is to proceed with laparoscopic cholecystectomy possible cholangiogram Scheduled for tomorrow Tuesday 06/20 Diet today and n.p.o. after midnight Plans could change depending on GI management Results & Data Vital Signs (Past 12 Hours) Vital Signs Temp Pulse Pulse Resp BP BP Pulse Ox 06/19/19 03:07 36.8 C 94 H 18 144/72 H 96 06/18/19 22:59 36.8 C 99 H 18 121/59 L 98 06/18/19 22:20 95 H 06/18/19 19:22 36.9 C 110 H 18 135/73 96 PG Care Time/CCT Total # of Minutes Spent Total Time Spent with Patient: Total time spent is greater than 50% in coordination of care (as documented) at patient's floor/unit and/or counseling patient: Coding Level of Care Code None Diagnoses Common bile duct obstruction K83.1
[2019-06-19] MEDS: FLUTICASONE/VILANTEROL 100/25MCG 14 PUFFS/INHALER INH SCH (07:42)
[2019-06-19] MEDS: DOCUSATE SODIUM 100 MG CAP PO SCH ×2 (07:43→20:30)
[2019-06-19] MEDS: dilTIAZem HCL 180 MG CAPCR PO SCH (07:44)
[2019-06-19] MEDS: METOPROLOL TARTRATE 100 MG TAB PO SCH ×2 (07:44→20:30)
[2019-06-19] MEDS: PANTOprazole 40 MG TAB PO SCH (07:44)
[2019-06-19 07:56] LABS: Hematocrit (blood only) 30.4 % (37-47); Hemoglobin 10.1 g/dL (12.0-16.0); Mean Corpuscular Hemoglobin 32.7 pg (25-34); Mean Corpuscular Hgb Conc 33.2 g/dL (32-36); Mean Corpuscular Volume 98.4 fL (80-100); Mean Platelet Volume 9.8 fL (7.4-10.4); Platelet Count 181 K/uL (130-400); RDW Coefficient of Variation 14.7 % (11.5-14.5); RDW Standard Deviation 52.7 fL (36.4-46.3); Red Blood Count 3.09 M/uL (4.2-5.4); White Blood Count 5.66 K/uL (4.8-10.8)
[2019-06-19] MEDS ORDERED: INDOMETHACIN 50 MG SUPP PR SCH (08:30)
[2019-06-19 08:41] LABS: Albumin Globulin Ratio 0.6 (0.9-2); Albumin Level 2.2 gm/dl (3.4-5.0); BUN Creatinine Ratio 12.2 (10-20); Bilirubin,Total 0.9 mg/dl (0.2-1); Creatinine Clr Calc Pharmacy 19.5 ml/min; Est GFR (African American) 35.7; Est GFR (Non-African American) 30.8; Globulin 3.9 gm/dl (2.5-4.0); Potassium 3.5 mmol/L (3.5-5.1); Total Protein 6.1 gm/dl (6.4-8.2)
--- NOTE | 2019-06-19 10:04 | Hospitalist Progress Note ---
Date of Service June 19, 2019 Assessment & Plan (1) Biliary colic: Likely acute cholecystitis vs gallstones which may have passed considering improving LFT Liver ultrasound did show mild gallbladder wall thickening, trace pericholecystic fluid and patient does have Krishna sign Cannot receive an MRCP because of a pacemaker LFTs continue to improve with total bilirubin now 0.9 from 3.2 on admission, AST 216 from 376 on admission, ALT 93 from 183 on admission, alk phos 237 from 315 admission Plan for laparoscopic cholecystectomy tomorrow. Tolerating diet. N.p.o. past midnight for possible surgery Continue Zosyn for now (2) CHF exacerbation: Patient had good diuresis with IV Lasix on admission with creatinine bump Has chronic pleural effusion Will continue to hold Lasix for now Creatinine is improved from 1.82 yesterday to 1.57 today which is above patient's baseline At baseline home oxygen (3) Diabetes mellitus, type II: Not on therapy at home A1c is 5.9 Monitor blood glucose (4) Adenocarcinoma, lung: Pt stated she is in remission, however, there is an increase in the spiculated RUL nodule on the CT image today which has changed from imaging done last year. Will need to be reviewed by her PCP/lung specialist outpatient (5) DVT prophylaxis: Eliquis on hold in preparation for surgery Continue heparin SQ for now. Full Code Admission and Anticipated Discharge Date Admission Date: June 16, 2019 Subjective Patient seen and examined. Patient still reports right-sided abdominal pain, though much improved. Denies any nausea, vomiting. Denies any fevers. Reports chronic shortness of breath is unchanged. Denies any dysuria, frequency, urgency, incontinence Has been tolerating diet well. Physical Exam Constitutional: + well hydrated; no acute distress Elderly woman Eyes: PERRL Conjunctiva normal ENMT: external ear and nose normal, oropharynx normal On nasal oxygen Respiratory: no respiratory distress Auscultation: + diminished lung sounds (Lung bases) On nasal oxygen, Cardiovascular: Rate/Rhythm: + irregularly irregular S1 S2, trace pedal edema Gastrointestinal (Abdomen): Inspection/Auscultation: normal bowel sounds; abdomen not distended Percussion/Palpation: + abdomen tender (Right upper quadrant) and abdomen soft; no guarding and abdomen not rigid Musculoskeletal: no cyanosis or clubbing, extremities motor strength 5/5 Neurologic: PERRL, EOMI, accommodation nl, no face palsy, no dysarthria Psychiatric: A+Ox3, euthymic affect Results & Data ([facility]) Vital Signs (Past 12 Hours) Vital Signs Temp Pulse Pulse Resp BP BP Pulse Ox 06/19/19 07:44 37.0 C 85 16 121/69 97 06/19/19 03:07 36.8 C 94 H 18 144/72 H 96 06/18/19 22:59 36.8 C 99 H 18 121/59 L 98 06/18/19 22:20 95 H Laboratory Results Abnormal lab results 06/18/19 06/19/19 06/19/19 Range/Units 12:37 07:09 07:09 RBC 3.09 L (4.2-5.4) M/uL Hgb 10.1 L (12.0-16.0) g/dL Hct 30.4 L (37-47) % RDW Std Deviation 52.7 H (36.4-46.3) fL RDW Coeff of Ilya 14.7 H (11.5-14.5) % BUN 24 H 19 H (7-18) mg/dl Creatinine 1.82 H 1.57 H (0.6-1.2) mg/dl Glucose 217 H (70-99) mg/dl Calcium 8.4 L (8.5-10.1) mg/dl AST 216 H (15-37) U/L ALT 93 H (12-78) U/L Alkaline Phosphatase 237 H (45-117) U/L Total Protein 6.1 L (6.4-8.2) gm/dl Albumin 2.2 L (3.4-5.0) gm/dl Albumin/Globulin Ratio 0.6 L (0.9-2) (1) CHF exacerbation Heart failure type: unspecified Qualified Code(s): I50.9 - Heart failure, unspecified
--- NOTE | 2019-06-19 10:08 | Gastroenterology Progress Note ---
Date of Service June 19, 2019 Assessment & Plan (1) Elevated LFTs: (2) Common bile duct obstruction: (3) Cholecystitis: Pt is a 79 y/o female admitted with elevated LFTs, noted to have CBD dilation, gallbladder wall thickening concerning for cholecystitis and choledocholithiasis. LFTs trending down. She had been afebrile - Continue antibx IV coverage - Trend LFTs - Keep NPO after midnight - EUS/ERCP + lap cholecystectomy tandem in OR tomorrow 06/20/2019 - Continue to hold Eliquis - Hold Heparin after midnight Attg add: I interviewed and examined pt, reviewed chart and labs. Pt with abd pain that resolved, noted to have abnl LFT's now improved, robin dil on imaging that also appears to have improved. A/p: Choledcoholithiasis, possibly resolved. plan as above, check Lipase. Admission and Anticipated Discharge Date Admission Date: June 16, 2019 Subjective Pt c/o RUQ, LLQ abd pain. Denies abd pain, n/v, fever, chills. She ate scrambled eggs this AM Review of Systems Review of Systems: All systems reviewed & are unremarkable except as noted in HPI & below Physical Exam Constitutional: WD/WN, vitals as above + frail appearing, well groomed, cooperative and comfortable Eyes: PERRL, conjunctivae normal, anicteric sclerae ENMT: external ear and nose normal, oropharynx normal Respiratory: no respiratory distress and does not use accessory muscles Auscultation: + diminished lung sounds Cardiovascular: RRR, no murmur, no edema Gastrointestinal (Abdomen): Inspection/Auscultation: normal bowel sounds Percussion/Palpation: + abdomen tender (across upper abd, LLQ ) and abdomen soft Skin: no rashes, warm and dry no jaundice Psychiatric: A+Ox3, euthymic affect Lymphatic: no lymphedema Results & Data ([facility]) Vital Signs (Past 12 Hours) Vital Signs Temp Pulse Pulse Resp BP BP Pulse Ox 06/19/19 07:44 37.0 C 85 16 121/69 97 06/19/19 03:07 36.8 C 94 H 18 144/72 H 96 06/18/19 22:59 36.8 C 99 H 18 121/59 L 98 06/18/19 22:20 95 H
--- NOTE | 2019-06-19 10:27 | Cardiology Progress Note ---
Date of Service June 19, 2019 Assessment & Plan (1) Acute cholecystitis: Per surgical management. Symptoms of biliary colic at time of presentation with nausea and vomiting Mild volume overload improved since IV diuretics. Chronic pleural effusions present good oxygenation No acute contraindications to surgery although elevated risk due to multiple morbidities Will hold further IV diuretics Follow along as GI and surgery decide clinical course Anticoagulation reversed, last dose Eliquis 06/15 I have counseled Mrs. Corona that I would place her as a moderate risk for any adverse perioperative cardiovascular event with her wrist being approximately less than 5%. She was further counseled that no further cardiac testing or intervention would further lower that risk. She states that she understands, she is accepting of that risk and wishes to proceed with any procedures as per our GI and surgery colleagues recommendations. (2) Chronic kidney disease (CKD): Renal function appears stable. (3) Tachy-rex syndrome: Normally functioning pacemaker in place with atrial fibrillation rates mildly elevated as per in past in part secondary to acute complaints and lapse in medications Would resume metoprolol and diltiazem (4) Chronic atrial fibrillation: Patient anticoagulated with Eliquis: Hold Eliquis in anticipation of possible surgery. Rate control as above Continue current dose of metoprolol and diltiazem for rate control (5) Recurrent pleural effusion on right: Patient is received 2 doses of IV furosemide. Past effusions have been managed with repeat thoracenteses Currently compensated without complaint We will continue to follow clinically for now Subjective Patient seen and examined out of bed in chair. States that she is feeling okay today still with abdominal discomfort. Some appetite today. Denies any cardiac complaints of chest pain, shortness of breath, palpitations, lightheadedness, dizziness or syncope. Telemetry reviewed: Atrial fibrillation rate controlled in the 80s to 90s. Review of Systems Review of Systems: All systems reviewed & are unremarkable except as noted in HPI & below Physical Exam Physical Exam: General: Awake, alert and oriented x 3. No acute distress. HEENT: Normocephalic, atraumatic. Pupils equal, round and reactive to light and accommodation. Extraocular muscles are intact. Anicteric sclera. Moist mucous membranes. Neck: No JVD. No bruit. Cardiovascular: irregularly irregular, unable to appreciate murmur, rub or gallop. Pulmonary: Clear to auscultation bilaterally. No rales, rhonchi, or wheezing. Abdomen: Diffusely tender. Bowel sounds x4 Extremities: No clubbing, cyanosis or edema. +2 pedal pulses bilaterally. Skin: Warm and dry. Results & Data Vital Signs (Past 12 Hours) Vital Signs Temp Pulse Resp BP BP Pulse Ox 06/19/19 07:44 37.0 C 85 16 121/69 97 06/19/19 03:07 36.8 C 94 H 18 144/72 H 96 06/18/19 22:59 36.8 C 99 H 18 121/59 L 98 Laboratory Results Cardiac Enzymes 06/19/19 Range/Units 07:09 AST 216 H (15-37) U/L CBC 06/19/19 Range/Units 07:09 WBC 5.66 (4.8-10.8) K/uL RBC 3.09 L (4.2-5.4) M/uL Hgb 10.1 L (12.0-16.0) g/dL Hct 30.4 L (37-47) % Plt Count 181 (130-400) K/uL Comprehensive Metabolic Panel 06/18/19 06/19/19 Range/Units 12:37 07:09 Sodium 139 140 (136-145) mmol/L Potassium 4.2 D 3.5 D (3.5-5.1) mmol/L Chloride 104 106 (98-107) mmol/L Carbon Dioxide 29 28 (21-32) mmol/L BUN 24 H 19 H (7-18) mg/dl Creatinine 1.82 H 1.57 H (0.6-1.2) mg/dl Glucose 217 H 94 (70-99) mg/dl Calcium 8.4 L 9.0 (8.5-10.1) mg/dl AST 216 H (15-37) U/L ALT 93 H (12-78) U/L Alkaline Phosphatase 237 H (45-117) U/L Total Protein 6.1 L (6.4-8.2) gm/dl Albumin 2.2 L (3.4-5.0) gm/dl Intake and Output 06/18/19 06/19/19 06/19/19 22:59 06:59 14:59 Intake Total 235 / 800 115 / 115 Output Total 301 / 851 250 / 851 Balance -66 / -51 -250 / -51 115 / 115 Intake: IV 115 / 430 115 / 115 Zosyn 3.375 gm In D5 100 ml @ 115 / 230 115 / 115 28.75 mls/hr IV Q12H [facility] Rx#: [id number] Oral 120 / 370 Output: Urine 300 / 850 250 / 850 # Bowel Movements Other: Other Intake Source npo Weight 48.6 kg Medications Administered Current Inpatient Medications Acetaminophen (Tylenol) 650 mg PO Q4H PRN PRN Reason: Pain or Fever Stop: 07/16/19 16:58 Last Admin: 06/16/19 17:42 Dose: 650 mg Documented by: Albuterol (Ventolin Hfa) 2 puffs INH QID PRN PRN Reason: Wheezing Stop: 07/16/19 16:25 Diltiazem HCl (Cardizem Cd) 360 mg PO DAILY [facility] Stop: 07/17/19 08:59 Last Admin: 06/19/19 07:44 Dose: 360 mg Documented by: Docusate Sodium (Colace) 100 mg PO BID [facility] Stop: 07/16/19 20:59 Last Admin: 06/19/19 07:43 Dose: 100 mg Documented by: Fluticasone/Vilanterol (Breo Ellipta 100/25 Mcg Inh) 1 puffs INH DAILY [facility]; Protocol Stop: 07/16/19 16:59 Last Admin: 06/19/19 07:42 Dose: 1 puffs Documented by: Heparin Sodium (Porcine) (Heparin Sodium (Porcine)) 5,000 units SQ Q8 [facility] Stop: 07/16/19 21:59 Last Admin: 06/19/19 05:29 Dose: 5,000 units Documented by: Furosemide 40 mg/ Syringe 4 mls @ 4 mls/min IV BID17 [facility] Stop: 07/17/19 08:59 Last Admin: 06/17/19 08:27 Dose: 4 mls/min Documented by: Piperacillin Sod/Tazobactam (Sod 3.375 gm/ Dextrose) 115 mls @ 28.75 mls/hr IV Q12H [facility]; Protocol Stop: 06/27/19 01:59 Last Infusion: 06/19/19 07:12 Dose: Infused Documented by: Indomethacin (Indocin) 100 mg TN TODAY@0800 [facility] Stop: 06/20/19 16:00 Ioversol (Optiray 320 100ml) 94 ml IV ONCE PRN PRN Reason: Interaction Checking Stop: 06/20/19 12:57 Last Admin: 06/16/19 12:58 Dose: 94 ml Documented by: Lorazepam (Ativan) 0.5 mg PO HS PRN PRN Reason: Sleep Stop: 07/16/19 16:25 Last Admin: 06/18/19 21:08 Dose: 0.5 mg Documented by: Metoprolol Tartrate (Lopressor) 100 mg PO BID [facility] Stop: 07/16/19 20:59 Last Admin: 06/19/19 07:44 Dose: 100 mg Documented by: Miscellaneous Information (Consult) 1 ea N/A UD PRN PRN Reason: Consult Stop: 07/16/19 16:44 Nitroglycerin (Nitrostat) 0.4 mg SL UD PRN PRN Reason: Chest Pain Stop: 07/16/19 16:25 Ondansetron HCl (Zofran) 4 mg IV Q6H PRN PRN Reason: Nausea Stop: 07/16/19 16:58 Pantoprazole Sodium (Protonix) 40 mg PO DAILY [facility] Stop: 07/17/19 08:59 Last Admin: 06/19/19 07:44 Dose: 40 mg Documented by: Polyethylene Glycol (Miralax Powder Packet) 17 gm PO DAILY PRN PRN Reason: Constipation Stop: 07/16/19 16:58
[2019-06-19] MEDS: LORazepam 0.5 MG TAB PO PRN (22:15)
[2019-06-19] MEDS: ACETAMINOPHEN 325 MG TAB PO PRN (23:37)
[2019-06-20] MEDS: PIPERACILLIN/TAZOBACTAM 3.375 GM in DEXTROSE 5% 100 ML IV SCH ×2 (01:14→21:10)
[2019-06-20 07:45] LABS: Hematocrit (blood only) 31.8 % (37-47); Hemoglobin 10.5 g/dL (12.0-16.0); Mean Corpuscular Hemoglobin 32.5 pg (25-34); Mean Corpuscular Volume 98.5 fL (80-100); Mean Platelet Volume 9.7 fL (7.4-10.4); Platelet Count 173 K/uL (130-400); RDW Coefficient of Variation 14.6 % (11.5-14.5); RDW Standard Deviation 52.5 fL (36.4-46.3); Red Blood Count 3.23 M/uL (4.2-5.4); White Blood Count 5.29 K/uL (4.8-10.8)
[2019-06-20 07:54] LABS: Prothrombin Time 10.6 Seconds (9.0-12.0)
[2019-06-20] MEDS ORDERED: INDOMETHACIN 50 MG SUPP PR SCH (08:00)
[2019-06-20 08:20] LABS: Albumin Level 2.4 gm/dl (3.4-5.0); BUN Creatinine Ratio 13.7 (10-20); Calcium 9.2 mg/dl (8.5-10.1); Est GFR (African American) 43.6; Est GFR (Non-African American) 37.7; Potassium 3.4 mmol/L (3.5-5.1)
[2019-06-20 08:23] LABS: Albumin Globulin Ratio 0.6 (0.9-2); Bilirubin,Total 0.8 mg/dl (0.2-1); Globulin 3.8 gm/dl (2.5-4.0); Total Protein 6.2 gm/dl (6.4-8.2)
[2019-06-20] MEDS: FLUTICASONE/VILANTEROL 100/25MCG 14 PUFFS/INHALER INH SCH (08:40)
[2019-06-20] MEDS: DOCUSATE SODIUM 100 MG CAP PO SCH ×2 (08:41→21:40)
[2019-06-20] MEDS: METOPROLOL TARTRATE 100 MG TAB PO SCH ×2 (08:42→21:40)
[2019-06-20] MEDS: PANTOprazole 40 MG TAB PO SCH (08:43)
[2019-06-20] MEDS: dilTIAZem HCL 180 MG CAPCR PO SCH (08:43)
--- NOTE | 2019-06-20 10:42 | Cardiology Progress Note ---
Date of Service June 20, 2019 Assessment & Plan (1) Acute cholecystitis: Per surgical management. Symptoms of biliary colic at time of presentation with nausea and vomiting Mild volume overload improved since IV diuretics. Chronic pleural effusions present good oxygenation No acute contraindications to surgery although elevated risk due to multiple morbidities Will hold further IV diuretics Follow along as GI and surgery decide clinical course Anticoagulation reversed, last dose Eliquis 06/15 I have counseled Mrs. Corona that I would place her as a moderate risk for any adverse perioperative cardiovascular event with her wrist being approximately less than 5%. She was further counseled that no further cardiac testing or intervention would further lower that risk. She states that she understands, she is accepting of that risk and wishes to proceed with any procedures as per our GI and surgery colleagues recommendations. (2) Chronic kidney disease (CKD): Renal function appears stable. (3) Tachy-rex syndrome: Normally functioning pacemaker in place with atrial fibrillation rates mildly elevated as per in past in part secondary to acute complaints and lapse in medications Would resume metoprolol and diltiazem (4) Chronic atrial fibrillation: Patient anticoagulated with Eliquis: Hold Eliquis in anticipation of possible surgery. Rate control as above Continue current dose of metoprolol and diltiazem for rate control Would restart Eliquis in the a.m. if bleeding risk is acceptable from surgical standpoint. (5) Recurrent pleural effusion on right: Patient is received 2 doses of IV furosemide. Past effusions have been managed with repeat thoracenteses Currently compensated without complaint We will continue to follow clinically for now Subjective Patient seen and examined lying in bed states that she has some mild abdominal discomfort otherwise feeling well. Is very anxious about the upcoming procedures today. Denies any chest pain, shortness of breath, palpitations, lightheadedness, dizziness or syncope. Telemetry reviewed: Atrial fibrillation, rate controlled Review of Systems Review of Systems: All systems reviewed & are unremarkable except as noted in HPI & below Physical Exam Physical Exam: General: Awake, alert and oriented x 3. No acute distress. HEENT: Normocephalic, atraumatic. Pupils equal, round and reactive to light and accommodation. Extraocular muscles are intact. Anicteric sclera. Moist mucous membranes. Neck: No JVD. No bruit. Cardiovascular: irregularly irregular, unable to appreciate murmur, rub or gallop. Pulmonary: Clear to auscultation bilaterally. No rales, rhonchi, or wheezing. Abdomen: Bowel sounds x 4, soft. Diffusely tender Extremities: No clubbing, cyanosis or edema. +2 pedal pulses bilaterally. Skin: Warm and dry. Results & Data Vital Signs (Past 12 Hours) Vital Signs Temp Pulse Resp BP BP Pulse Ox 06/20/19 07:52 37.0 C 96 H 18 116/66 100 06/20/19 03:00 36.9 C 66 18 145/97 H 94 06/19/19 23:18 36.6 C 105 H 18 151/93 H 94 Laboratory Results Laboratory Results - last 24 hr 06/19/19 06/20/19 06/20/19 07:09 06:53 06:53 WBC 5.29 RBC 3.23 L Hgb 10.5 L Hct 31.8 L MCV 98.5 MCH 32.5 MCHC 33.0 RDW Std Deviation 52.5 H RDW Coeff of Ilya 14.6 H Plt Count 173 MPV 9.7 PT 10.6 INR 1.0 Sodium Potassium Chloride Carbon Dioxide Anion Gap BUN Creatinine Est Cr Clr Drug Dosing Est GFR ( Amer) Est GFR (Non-Af Amer) BUN/Creatinine Ratio Glucose Calcium Total Bilirubin AST ALT Alkaline Phosphatase Total Protein Albumin Globulin Albumin/Globulin Ratio Lipase 951 H 06/20/19 06:53 WBC RBC Hgb Hct MCV MCH MCHC RDW Std Deviation RDW Coeff of Ilya Plt Count MPV PT INR Sodium 141 Potassium 3.4 L Chloride 108 H Carbon Dioxide 27 Anion Gap 6.0 BUN 18 Creatinine 1.33 H Est Cr Clr Drug Dosing 23.0 Est GFR ( Amer) 43.6 Est GFR (Non-Af Amer) 37.7 BUN/Creatinine Ratio 13.7 Glucose 94 Calcium 9.2 Total Bilirubin 0.8 AST 189 H ALT 78 Alkaline Phosphatase 224 H Total Protein 6.2 L Albumin 2.4 L Globulin 3.8 Albumin/Globulin Ratio 0.6 L Lipase Medications Administered Current Inpatient Medications Acetaminophen (Tylenol) 650 mg PO Q4H PRN PRN Reason: Pain or Fever Stop: 07/16/19 16:58 Last Admin: 06/19/19 23:37 Dose: 650 mg Documented by: Albuterol (Ventolin Hfa) 2 puffs INH QID PRN PRN Reason: Wheezing Stop: 07/16/19 16:25 Diltiazem HCl (Cardizem Cd) 360 mg PO DAILY [facility] Stop: 07/17/19 08:59 Last Admin: 06/20/19 08:43 Dose: 360 mg Documented by: Docusate Sodium (Colace) 100 mg PO BID [facility] Stop: 07/16/19 20:59 Last Admin: 06/20/19 08:41 Dose: 100 mg Documented by: Fluticasone/Vilanterol (Breo Ellipta 100/25 Mcg Inh) 1 puffs INH DAILY [facility]; Protocol Stop: 07/16/19 16:59 Last Admin: 06/20/19 08:40 Dose: 1 puffs Documented by: Heparin Sodium (Porcine) (Heparin Sodium (Porcine)) 5,000 units SQ Q8 [facility] Stop: 07/16/19 21:59 Last Admin: 06/19/19 21:34 Dose: Not Given Documented by: Furosemide 40 mg/ Syringe 4 mls @ 4 mls/min IV BID17 [facility] Stop: 07/17/19 08:59 Last Admin: 06/17/19 08:27 Dose: 4 mls/min Documented by: Piperacillin Sod/Tazobactam (Sod 3.375 gm/ Dextrose) 115 mls @ 28.75 mls/hr IV Q12H [facility]; Protocol Stop: 06/27/19 01:59 Last Infusion: 06/20/19 05:15 Dose: Infused Documented by: Indomethacin (Indocin) 100 mg DC TODAY@0800 [facility] Stop: 06/20/19 16:00 Ioversol (Optiray 320 100ml) 94 ml IV ONCE PRN PRN Reason: Interaction Checking Stop: 06/20/19 12:57 Last Admin: 06/16/19 12:58 Dose: 94 ml Documented by: Lorazepam (Ativan) 0.5 mg PO HS PRN PRN Reason: Sleep Stop: 07/16/19 16:25 Last Admin: 06/19/19 22:15 Dose: 0.5 mg Documented by: Metoprolol Tartrate (Lopressor) 100 mg PO BID [facility] Stop: 07/16/19 20:59 Last Admin: 06/20/19 08:42 Dose: 100 mg Documented by: Miscellaneous Information (Consult) 1 ea N/A UD PRN PRN Reason: Consult Stop: 07/16/19 16:44 Nitroglycerin (Nitrostat) 0.4 mg SL UD PRN PRN Reason: Chest Pain Stop: 07/16/19 16:25 Ondansetron HCl (Zofran) 4 mg IV Q6H PRN PRN Reason: Nausea Stop: 07/16/19 16:58 Pantoprazole Sodium (Protonix) 40 mg PO DAILY [facility] Stop: 07/17/19 08:59 Last Admin: 06/20/19 08:43 Dose: 40 mg Documented by: Polyethylene Glycol (Miralax Powder Packet) 17 gm PO DAILY PRN PRN Reason: Constipation Stop: 07/16/19 16:58
--- NOTE | 2019-06-20 11:27 | Gastroenterology Progress Note ---
Date of Service June 20, 2019 Assessment & Plan (1) Elevated LFTs: (2) Common bile duct obstruction: (3) Cholecystitis: Pt is a 79 y/o female admitted with elevated LFTs, noted to have CBD dilation, gallbladder wall thickening concerning for cholecystitis and choledocholithiasis. LFTs trending down. She had been afebrile Had been NPO since midnight for EUS/ERCP and lap cholecystectomy scheduled in OR this afternoon. - Continue antibx IV coverage - Trend LFTs, repeat lipase today - Keep NPO fpr EUS/ERCP + lap cholecystectomy tandem in OR today - GI [facility] give further recs after EUS/ERCP completed Admission and Anticipated Discharge Date Admission Date: June 16, 2019 Supervising Physician Co-Signing Physician Notes I performed a history and physical examination of the patient today, including specifically on physical exam - soft abdomen. I have discussed the patient's management with the advanced practitioner. Please refer to the nurse practitioner's note for the documented findings and plan of care. EUS/ERCP today Subjective Pt denies increased SOB, CP. Has mild abd pain mostly on RUQ area. Denies n/v. BM this AM w/o signs of rectal bleeding, dark tarry stools. LFTs trending down Review of Systems Review of Systems: All systems reviewed & are unremarkable except as noted in HPI & below Physical Exam Constitutional: WD/WN, vitals as above + frail appearing, well groomed, cooperative and comfortable Eyes: PERRL, conjunctivae normal, anicteric sclerae ENMT: external ear and nose normal, oropharynx normal Respiratory: no respiratory distress and does not use accessory muscles Auscultation: + diminished lung sounds Cardiovascular: RRR, no murmur, no edema Gastrointestinal (Abdomen): Inspection/Auscultation: + hypoactive bowel sounds Percussion/Palpation: + abdomen tender (RUQ) and abdomen soft Skin: no rashes, warm and dry no jaundice Psychiatric: A+Ox3, euthymic affect Lymphatic: no lymphedema Results & Data ([facility]) Vital Signs (Past 12 Hours) Vital Signs Temp Pulse Resp BP BP Pulse Ox 06/20/19 11:19 36.8 C 91 H 18 142/77 H 99 06/20/19 07:52 37.0 C 96 H 18 116/66 100 06/20/19 03:00 36.9 C 66 18 145/97 H 94
[2019-06-20] MEDS ORDERED: ONDANSETRON INJ 2 MG/ML 2 ML VIAL ONE (12:53)
[2019-06-20] MEDS ORDERED: PHENYLEPHRINE 100MCG/ML 5ML SYR ONE ×2 (12:53→18:04)
[2019-06-20] MEDS ORDERED: ePHEDrine sulfate 50 MG/ML SYR ONE (12:53)
[2019-06-20] MEDS ORDERED: ROCURONIUM BROMIDE 10 MG/ML 5 ML VIAL ONE (12:53)
[2019-06-20] MEDS ORDERED: LARYING-O-JET KIT (LTA) ONE (12:53)
[2019-06-20] MEDS ORDERED: fentaNYL citrate 100 MCG/2 ML VIAL ONE ×2 (12:53→18:12)
[2019-06-20] MEDS ORDERED: LIDOCAINE HCL 2% 2 ML VIAL/AMP(20MG/ML) INFIL ONE (12:53)
[2019-06-20] MEDS ORDERED: DEXAMETHASONE SOD INJ 4 MG/ML VIAL ONE (12:53)
[2019-06-20] MEDS ORDERED: PROPOFOL IV EMULSION 10 MG/ML 20 ML VIAL IV ONE (12:53)
[2019-06-20] MEDS ORDERED: NEOSTIGMINE METHYLSULFATE 5 MG/5 ML SYR ONE (12:53)
[2019-06-20] MEDS ORDERED: GLYCOPYRROLATE 0.2 MG/ML VIAL ONE (12:53)
--- NOTE | 2019-06-20 13:11 | Anesthesiology Consultation ---
Date of Service June 20, 2019 Assessment & Plan (1) Encounter for pre-operative examination: Chart Review Chart Review: Acceptable Risk for Surgery and Patient NOT seen in Pre Admission Testing Cardiology consult 06/20/2019: ) Acute cholecystitis: Per surgical management. Symptoms of biliary colic at time of presentation with nausea and vomiting Mild volume overload improved since IV diuretics. Chronic pleural effusions present good oxygenation No acute contraindications to surgery although elevated risk due to multiple morbidities Will hold further IV diuretics Follow along as GI and surgery decide clinical course Anticoagulation reversed, last dose Eliquis 06/15 Consults Requested none History Surgery Operation Date: 06/20/19 07:00 Proposed Procedures p Endoscopic Ultrasonography Upper - Allyssa Clark MD s Endoscopic Retrograde Cholangiopancreatogram - Allyssa Clark MD Operation Date: 06/20/19 07:00 Proposed Procedures p Laparoscopic Cholecystectomy, possible Cholangiogram - Benjy Charlton MD, FACS s Endoscopic Ultrasonography Upper - Allyssa Clark MD s Endoscopic Retrograde Cholangiopancreatogram - Allyssa Clark MD Height/Weight Height: 4 ft 11 in Weight: 48.7 kg Allergies Allergy/AdvReac Type Severity Reaction Status Date / Time lisinopril Allergy Intermediate RASH Verified 06/16/19 11:45 zolpidem AdvReac Severe hallucinati Verified 06/16/19 11:45 ons Medications Home Medications Medication Instructions Recorded Confirmed Last Taken lorazepam 0.5 mg PO HS PRN 04/21/18 06/16/19 12/29/18 metoprolol tartrate 100 mg PO BID 04/21/18 06/16/19 06/15/19 pantoprazole 40 mg PO DAILY 04/21/18 06/16/19 06/15/19 folic acid 1 mg PO DAILY 04/28/18 06/16/19 06/15/19 nitroglycerin 0.4 mg SUBLINGUAL UD PRN 04/28/18 06/16/19 Unknown Eliquis 2.5 mg PO BID 07/10/18 06/16/19 06/15/19 aspirin [Aspirin Low Dose] 81 mg PO QAM 07/10/18 06/16/19 06/15/19 diltiazem HCl 360 mg PO DAILY 07/10/18 06/16/19 06/15/19 ondansetron HCl [Zofran] 8 mg PO TID PRN 07/10/18 06/16/19 Unknown furosemide 40 mg tablet 40 mg PO BID #30 tab 12/20/18 06/16/19 06/15/19 iron,carbonyl 65 mg-vitamin C 125 1 tab PO DAILY 12/21/18 06/16/19 06/15/19 mg tablet,delayed release magnesium oxide 400 mg PO DAILY cap 12/21/18 06/16/19 06/15/19 nystatin 100,000 unit/gram topical 1 appln TOP BID 12/21/18 06/16/19 06/15/19 powder trazodone 50 mg tablet 50 mg PO HS 12/21/18 06/16/19 06/15/19 albuterol sulfate [Ventolin HFA] 2 puff INHALATION QID PRN 12/30/18 06/16/19 06/16/19 triamcinolone acetonide 0.1 % 1 appln TOP BID 03/28/19 06/16/19 Unknown topical cream megestrol 400 mg/10 mL (40 mg/mL) 200 mg PO BID #240 ml 04/03/19 06/16/19 06/15/19 oral suspension budesonide-formoterol HFA 160 2 puff INHALATION Q12H #10.2 gm 05/11/19 06/16/19 06/16/19 mcg-4.5 mcg/actuation aerosol inhaler docusate sodium 100 mg PO BID 06/16/19 06/16/19 Unknown polyethylene glycol 3350 [Miralax] 17 g PO QAM 06/16/19 06/16/19 Unknown prochlorperazine maleate 10 mg PO Q6H PRN 06/16/19 06/16/19 Unknown [Compazine] Active Medications Generic Name Dose Route Start Last Admin Trade Name Freq PRN Reason Stop Dose Admin Acetaminophen 650 mg 06/16/19 16:59 06/19/19 23:37 Tylenol PO 07/16/19 16:58 650 mg Q4H PRN Administration Pain or Fever Diltiazem HCl 360 mg 06/17/19 09:00 06/20/19 08:43 Cardizem Cd PO 07/17/19 08:59 360 mg DAILY STEFAN Administration Docusate Sodium 100 mg 06/16/19 21:00 06/20/19 08:41 Colace PO 07/16/19 20:59 100 mg BID STEFAN Administration Fluticasone/Vilanterol 1 puffs 06/16/19 17:00 06/20/19 08:40 Breo Ellipta 100/25 Mcg Inh INH 07/16/19 16:59 1 puffs DAILY STEFAN Administration Protocol Heparin Sodium (Porcine) 5,000 units 06/16/19 22:00 06/19/19 21:34 Heparin Sodium (Porcine) SQ 07/16/19 21:59 Not Given Q8 STEFAN Furosemide 40 mg/ Syringe 4 mls @ 4 mls/min 06/17/19 09:00 06/17/19 08:27 IV 07/17/19 08:59 4 mls/min BID17 STEFAN Administration Piperacillin Sod/Tazobactam 115 mls @ 28.75 mls/hr 06/19/19 02:00 06/20/19 05:15 Sod 3.375 gm/ Dextrose IV 06/27/19 01:59 Infused Q12H STEFAN Infusion Protocol Lorazepam 0.5 mg 06/16/19 16:26 06/19/19 22:15 Ativan PO 07/16/19 16:25 0.5 mg HS PRN Administration Sleep Metoprolol Tartrate 100 mg 06/16/19 21:00 06/20/19 08:42 Lopressor PO 07/16/19 20:59 100 mg BID STEFAN Administration Pantoprazole Sodium 40 mg 06/17/19 09:00 06/20/19 08:43 Protonix PO 07/17/19 08:59 40 mg DAILY STEFAN Administration Past Medical History Medical History (Updated 06/20/19 @ 13:15 by Bobo Rider MD) A-fib (Inactive) Ok to continue Eliquis and restart all AVN blockers Acute on chronic renal failure Anemia CAD (coronary artery disease) (Inactive) Cancer LUNG CANCER S/P RECENT CHEMO (COMPLETED 04/01/18) Chronic obstructive pulmonary disease Diabetes mellitus, type II (Inactive) GERD (gastroesophageal reflux disease) Hiatal hernia Hyperlipidemia Hypertension Myocardial Infarction 1992= MEDICAL MANAGEMENT Osteoarthritis Osteoporosis PNA (pneumonia) (Inactive) Recurrent pleural effusion on right Tachy-rex syndrome s/p permanent pacemaker Volume overload (Inactive) Exercise / Class Metabolic Activity III < 4 Walking/Shop/Light housework Past Family History Family History Grandfather (Paternal) Family hx of colon cancer Past Surgical History Surgical History History of adenoidectomy History of appendectomy History of arthroscopy RIGHT KNEE History of cardiac cath 1992= NO STENTS History of cataract surgery BILATERAL History of section X4 History of colonoscopy History of hysterectomy JOSE WITH BSO History of lung surgery NAVIGATIONAL BRONCH/EBUS= 11/09/17= GRADE I VIEW, MAC 3, ETT 8.0 AT [facility] History of tonsillectomy History of tooth extraction Past Anesthesia History No Hx of Anesthesia Complications and No Family Hx of Anesthesia Complications History of PONV No Hx of PONV and No Hx of Motion Sickness Social History Smoking Status: Never smoker Smoking cigarettes per day: 10 Do You Dip or Chew Tobacco: No Hx Alcohol Use: No alcohol intake frequency: holidays/special occasions only Hx Substance Use: No substance use type: does not use Physical Exam Vital Signs Last Vital Signs Temp 36.8 C 06/20/19 11:19 Pulse 91 H 06/20/19 11:19 Resp 18 06/20/19 11:19 BP 142/77 H 06/20/19 11:19 Pulse Ox 99 06/20/19 11:19 Testing Laboratory Results 06/20/19 06:53 06/20/19 06:53 PT 10.6 Seconds (9.0-12.0) 06/20/19 06:53 INR 1.0 (0.9-1.1) 06/20/19 06:53 APTT 20.1 Seconds (21.0-31.0) L 06/16/19 10:40 Hemoglobin A1c 5.9 % (4.5-5.6) H 06/16/19 10:40 Urine Color Yellow 06/16/19 12:05 Urine Appearance Cloudy (Clear) A 06/16/19 12:05 Urine pH 7.5 (4.5-7.5) 06/16/19 12:05 Ur Specific [place] 1.013 (1.000-1.030) 06/16/19 12:05 Urine Protein 1+ (Negative) H 06/16/19 12:05 Urine Glucose (UA) Negative (Negative) 06/16/19 12:05 Urine Ketones Negative (Negative) 06/16/19 12:05 Urine Nitrite Negative (Negative) 06/16/19 12:05 Ur Leukocyte Esterase 3+ (Negative) H 06/16/19 12:05 Urine WBC (Auto) >30 /hpf (0-5) H 06/16/19 12:05 Urine RBC (Auto) 5-10 /hpf (0-4) H 06/16/19 12:05 U Hyaline Cast (Auto) 1-5 /lpf (0-5) 06/16/19 12:05 U Epithel Cells (Auto) 10-20 /lpf (0-5) H 06/16/19 12:05 Urine Bacteria (Auto) Negative (Negative) 06/16/19 12:05 06/16/19 14:13 Aerobic Blood Culture - Preliminary Blood No growth in Aerobic bottle after 48 hours. Anaerobic Blood Culture - Preliminary No growth in Anaerobic bottle after 48 hours. 06/16/19 14:05 Aerobic Blood Culture - Preliminary Blood No growth in Aerobic bottle after 48 hours. Anaerobic Blood Culture - Preliminary No growth in Anaerobic bottle after 48 hours. 06/16/19 12:05 Urine Culture - Final Urine,Clean Catch More than three types of organisms present, all low counts mixed probable skin sourav. No further identifications or sensitivities to follow. Electrocardiogram Date: 06/16/19 Poor data quality, interpretation may be adversely affected Atrial fibrillation with occasional ventricular paced complex Low voltage QRS Cannot rule out Anterior infarct , age undetermined Nonspecific T wave abnormality Abnormal ECG When compared with ECG of 12-JUL-2018 11:59, Ventricular paced complex is now present Confirmed by Corey Steinberg ([id number]) on 06/16/2019 10:04:49 PM Chest X-Ray Date: 06/16/19 SINGLE VIEW CHEST CLINICAL HISTORY: Dyspnea. FINDINGS: An AP, portable, upright chest radiograph is compared to study dated 04/14/2019. The examination is degraded by portable technique and patient rotation. A single lead cardiac pacemaker is unchanged in position and partially obscures the left mid chest. The heart is enlarged. There is pulmonary vascular congestion. There are small to moderate layering pleural effusions with bibasilar consolidation. No pneumothorax is seen. The skeletal structures are osteopenic. The bony thorax is grossly intact. IMPRESSION: 1. Cardiomegaly and cardiac pacemaker with evidence of congestive failure. 2. There are small to moderate pleural effusions with associated bibasilar consolidation. Echocardiogram Date: 06/18/19 EF 60-65% LVH hypokinesis inferior wall MR/TR
[2019-06-20] MEDS ORDERED: BUPIVACAINE 0.5 % 5 MG/1 ML MPF 30ML VIAL ONE (13:25)
[2019-06-20] MEDS ORDERED: CONRAY 60% 50 ML VIAL ONE (13:26)
[2019-06-20] MEDS ORDERED: ATROPINE SULFATE 0.1 MG/ML 10ML SYR IV PRN (13:27)
[2019-06-20] MEDS ORDERED: ONDANSETRON INJ 2 MG/ML 2 ML VIAL IV PRN (13:27)
[2019-06-20] MEDS ORDERED: ePHEDrine sulfate 50 MG/ML AMP IV PRN (13:27)
--- NOTE | 2019-06-20 13:29 | History & Physical Bridge Note ---
Date of Service June 20, 2019 History & Physical Bridge Note I have examined the patient, reviewed the History & Physical and in the interval since the performance of the History & Physical I have noted the following changes of clinical significance: no changes noted
--- NOTE | 2019-06-20 14:51 | Operative Report ---
Post Operative Report Pre & Post Diagnosis Operation Date: 06/20/19 07:00 Pre-Op Diagnosis: Common Bile Duct Stones, Cholangitis, Common Bile Duct Obstruction, Acute Cholecystitis Post-Op Diagnosis: Common Bile Duct Stones, Cholangitis, Common Bile Duct Obstruction, Acute Cholecystitis Operation Date: 06/20/19 07:00 <No data on this case meets the specified criteria> I identified the patient and participated in the time-out.: Yes Procedure Operation Date: 06/20/19 07:00 Actual Procedures s Laparoscopic Cholecystectomy(Not Applicable) - Benjy Charlton MD, FACS p Endoscopic Retrograde Cholangiopancreatogram, Endoscopic Ultrasonography Upper, Esophagogastroduodenoscopy (Not Applicable) - Allyssa Clark MD Operation Date: 06/20/19 07:00 <No data on this case meets the specified criteria> Surgeon Allyssa Clark MD Cardiac Cath Rn None Estimated Blood Loss 0 Findings See Below (CBD stone removed, Pus sweeped, Stents placed) Specimens None Description of Procedure EUS/ERCP I attest to the content of the Intraoperative Record and any orders documented therein. Any exceptions are noted below.
--- NOTE | 2019-06-20 15:14 | Fluoroscopy Report ---
FL ERCP biliary ductal CLINICAL HISTORY: ERCP COMPARISON STUDY: None FLUOROSCOPY TIME: 1 minute 26 seconds NUMBER OF FLUOROSCOPIC IMAGES: 7 FINDINGS: Submitted images demonstrate retrograde opacification of the biliary ductal system. This is followed by sweeping of the common bile duct. No well-defined filling defects are appreciated. IMPRESSION: ERCP with successful balloon sweeping of the common bile duct. ACT 112: Negative or not required by law. The above report was generated using voice recognition software. It may contain grammatical, syntax or spelling errors. Electronically signed by: Enrique Reyes M.D. 06/20/2019 3:13 PM
--- NOTE | 2019-06-20 15:15 | GI REPORT ---
Patient Name: Chase Corona Procedure Date: 06/20/2019 1:36 PM Date of : 1940 Admit Type: Inpatient Age: 79 Gender: Female Attending MD: Allyssa Clark MD Procedure: Upper GI endoscopy Providers: Allyssa Clark MD Referring MD: Kaelyn Black Md, Benjy Charlton Indications: Epigastric abdominal pain Medicines: General Anesthesia Complications: No immediate complications. Estimated Blood Loss: Estimated blood loss: none. Procedure: Pre-Anesthesia Assessment: - Prior to the procedure, a History and Physical was performed, and patient medications, allergies and sensitivities were reviewed. The patient's tolerance of previous anesthesia was reviewed. - The risks and benefits of the procedure and the sedation options and risks were discussed with the patient. All questions were answered and informed consent was obtained. - Patient identification and proposed procedure were verified prior to the procedure by the physician and the nurse. The procedure was verified in the procedure room. - Pre-procedure physical examination revealed no contraindications to sedation. After obtaining informed consent, the endoscope was passed under direct vision. Throughout the procedure, the patient's blood pressure, pulse, and oxygen saturations were monitored continuously. The Endoscope was introduced through the mouth, and advanced to the second part of duodenum. The upper GI endoscopy was accomplished without difficulty. The patient tolerated the procedure well. Findings: A medium-sized hiatal hernia was found. A medium amount of food (residue) was found in the hernia sac. The duodenal bulb and second portion of the duodenum were normal. Impression: - Medium-sized hiatal hernia. - A medium amount of food (residue) in the stomach. - Normal duodenal bulb and second portion of the duodenum. - No specimens collected. Recommendation: - Perform an upper endoscopic ultrasound (UEUS) today. Allyssa Clark MD 06/20/2019 3:15:41 PM This report has been signed electronically. Note Initiated On: 06/20/2019 1:36 PM Number of Addenda: 0 I attest to the content of the Intraoperative Record and orders documented therein, exceptions below {[id number]}
--- NOTE | 2019-06-20 15:27 | GI REPORT ---
Patient Name: Chase Corona Procedure Date: 06/20/2019 1:34 PM Date of : 1940 Admit Type: Inpatient Age: 79 Gender: Female Attending MD: Allyssa Clark MD Procedure: Upper EUS Providers: Allyssa Clark MD Referring MD: Kaelyn Black Md, Benjy Charlton Indications: Common bile duct dilation (acquired) seen on CT scan, Elevated liver enzymes, Suspected choledocholithiasis Medicines: General Anesthesia Complications: No immediate complications. Estimated Blood Loss: Estimated blood loss: none. Procedure: Pre-Anesthesia Assessment: - Prior to the procedure, a History and Physical was performed, and patient medications, allergies and sensitivities were reviewed. The patient's tolerance of previous anesthesia was reviewed. - The risks and benefits of the procedure and the sedation options and risks were discussed with the patient. All questions were answered and informed consent was obtained. - Patient identification and proposed procedure were verified prior to the procedure by the physician and the nurse. The procedure was verified in the procedure room. - Pre-procedure physical examination revealed no contraindications to sedation. After obtaining informed consent, the endoscope was passed under direct vision. Throughout the procedure, the patient's blood pressure, pulse, and oxygen saturations were monitored continuously. The Scope was introduced through the mouth, and advanced to the second part of duodenum. The upper EUS was accomplished without difficulty. The patient tolerated the procedure well. Findings: ENDOSONOGRAPHIC FINDING: : There was no sign of significant endosonographic abnormality in the ampulla. No masses were identified. One stone was visualized endosonographically in the common bile duct. The stone was round. It was hyperechoic and characterized by shadowing. Multiple stones were visualized endosonographically in the gallbladder. The stones were round. They were hyperechoic and characterized by shadowing. There was no sign of significant endosonographic abnormality in the left lobe of the liver. Pancreatic parenchymal abnormalities were noted in the pancreatic head suggestive of acute pancreatitis. The remaining pancreas was normal, the PD diameter measured 2.5 mm in the head and 1.5 mm in the body. An anechoic lesion suggestive of a cyst was identified in the pancreatic head. It does not communicate with the pancreatic duct. The lesion measured 7 mm in maximal cross-sectional diameter. There was a single compartment without septae. There was no associated mass. Impression: - There was no sign of significant pathology in the ampulla. - One stone was visualized endosonographically in the common bile duct. - Multiple stones were visualized endosonographically in the gallbladder. - There was no evidence of significant pathology in the left lobe of the liver. - Pancreatic parenchymal abnormalities were noted in the pancreatic head suggestive of acute pancreatitis. - A benign cysts was seen in the pancreatic head likely side branch IPMN, no worrisome features and size is small for sampling. Recommendation: - Perform an ERCP today. - Surveillance imaging for the pancreatic cyst in one year if the patient is a surveillance candidate. Allyssa Clark MD 06/20/2019 3:27:10 PM This report has been signed electronically. Note Initiated On: 06/20/2019 1:34 PM Number of Addenda: 0 I attest to the content of the Intraoperative Record and orders documented therein, exceptions below {[id number]}
--- NOTE | 2019-06-20 15:35 | GI REPORT ---
Patient Name: Chase Corona Procedure Date: 06/20/2019 2:21 PM Date of : 1940 Admit Type: Inpatient Age: 79 Gender: Female Attending MD: Allyssa Clark MD Procedure: ERCP Providers: Allyssa Clark MD Referring MD: Kaelyn Montiel Md Indications: Abnormal endoscopic ultrasound of the biliary system, For therapy of bile duct stone(s), Elevated liver enzymes Medicines: Propofol per Anesthesia Complications: No immediate complications. Estimated Blood Loss: Estimated blood loss: none. Procedure: Pre-Anesthesia Assessment: - Prior to the procedure, a History and Physical was performed, and patient medications, allergies and sensitivities were reviewed. The patient's tolerance of previous anesthesia was reviewed. - The risks and benefits of the procedure and the sedation options and risks were discussed with the patient. All questions were answered and informed consent was obtained. - Patient identification and proposed procedure were verified prior to the procedure by the physician and the nurse. The procedure was verified in the procedure room. - Pre-procedure physical examination revealed no contraindications to sedation. After obtaining informed consent, the scope was passed under direct vision. Throughout the procedure, the patient's blood pressure, pulse, and oxygen saturations were monitored continuously. The Scope was introduced through the mouth, and advanced to the duodenum and used to inject contrast into the bile duct. The ERCP was accomplished without difficulty. The patient tolerated the procedure well. Findings: The dental hygienist film was normal. The esophagus was successfully intubated under direct vision. The scope was advanced to a normal major papilla in the descending duodenum without detailed examination of the pharynx, larynx and associated structures, and upper GI tract. The upper GI tract was grossly normal. The ventral pancreatic duct was inadvertently cannulated. The guidewire was kept in place to assist in biliary cannulation using double wire technique. A 0.035 inch straight standard wire was passed into the biliary tree. The Fusion OMNI sphincterotome was passed over the guidewire and the bile duct was then deeply cannulated. Contrast was injected. I personally interpreted the bile duct images. Ductal flow of contrast was adequate. Image quality was adequate. Contrast extended to the main bile duct. Opacification of the main bile duct, gallbladder and left and right hepatic ducts and all intrahepatic branches was successful. The lower third of the main bile duct contained one stone. Biliary sphincterotomy was made with a monofilament traction (standard) sphincterotome using ERBE electrocautery. There was no post-sphincterotomy bleeding. The biliary tree was swept with a 12 mm balloon starting at the bifurcation. One stone was removed. No stones remained. Pus was swept from the duct. One 5 Fr by 5 cm plastic pancreatic stent with a single external pigtail and no internal flaps was placed into the ventral pancreatic duct. Clear fluid flowed through the stent. The stent was in good position. One 10 Fr by 8 cm plastic biliary stent with a single external flap and a single internal flap was placed into the common bile duct in view of cholangitis. Bile flowed through the stent. The stent was in good position. Indomethacin 100 mg was given via suppository to decrease the risk of post-ERCP pancreatitis (PEP). Impression: - Choledocholithiasis was found. Complete removal was accomplished by biliary sphincterotomy and balloon extraction. - One plastic pancreatic stent was placed into the ventral pancreatic duct. - One plastic biliary stent was placed into the common bile duct. Recommendation: - Return patient to [facility] for [facility] care. - Avoid aspirin and nonsteroidal anti-inflammatory medicines for 5 days. - Repeat ERCP in 4 weeks to remove stents. - Hold Anticoagulation for 2 more days. - Complete a 10 days course of ABx. - Clear liquids diet. - Proceed with Lap ning. Allyssa Clark MD 06/20/2019 3:35:00 PM This report has been signed electronically. Note Initiated On: 06/20/2019 2:21 PM Number of Addenda: 0 I attest to the content of the Intraoperative Record and orders documented therein, exceptions below {[id number]}
[2019-06-20] MEDS ORDERED: ACETAMINOPHEN 1,000 MG/100 ML VIAL IV STA (15:49)
--- NOTE | 2019-06-20 15:49 | Post Operative Brief Note ---
[facility] Immediate Post Op with CF Date of Surgery June 20, 2019 Pre & Post Diagnosis Operation Date: 06/20/19 07:00 Pre-Op Diagnosis: Common Bile Duct Stones, Cholangitis, Common Bile Duct Obstruction, Acute Cholecystitis Post-Op Diagnosis: Common Bile Duct Stones, Cholangitis, Common Bile Duct Obstruction, Acute Cholecystitis Operation Date: 06/20/19 07:00 <No data on this case meets the specified criteria> I identified the patient and participated in the time-out.: Yes Procedure Operation Date: 06/20/19 07:00 Actual Procedures s Laparoscopic Cholecystectomy(Not Applicable) - Benjy Charlton MD, FACS p Endoscopic Retrograde Cholangiopancreatogram, Endoscopic Ultrasonography Upper, Esophagogastroduodenoscopy (Not Applicable) - Allyssa Clark MD Operation Date: 06/20/19 07:00 <No data on this case meets the specified criteria> Surgeon Benjy Charlton MD, FACS Specialty Sales Consultant None Estimated Blood Loss 0 Findings Consistent with Post-Op Diagnosis Specimens Specimen Description: All specimens for endoscopy case handled by Dr. Clark and Endoscopy staff: Staff reported no specimens Permanent Specimen A. Drains Artie-العلي Drain
[2019-06-20] MEDS: fentaNYL citrate 100 MCG/2 ML VIAL IV PRN ×4 (16:30→23:32)
--- NOTE | 2019-06-20 16:59 | Anesthesiology Progress Note ---
Date of Service June 20, 2019 Anesthesia Post Procedure Vital Signs Vital Signs: Temp Pulse Pulse Pulse Resp BP BP 06/20/19 16:40 89 20 114/77 06/20/19 16:30 99 H 21 157/79 H 06/20/19 16:20 86 23 164/109 H 06/20/19 16:10 93 H 21 168/87 H 06/20/19 16:03 37.3 C 80 17 166/76 H 06/20/19 13:07 37 C 92 H 20 144/86 H 06/20/19 11:19 36.8 C 91 H 18 142/77 H 06/20/19 07:52 37.0 C 96 H 18 116/66 06/20/19 03:00 36.9 C 66 18 145/97 H 06/19/19 23:18 36.6 C 105 H 18 151/93 H 06/19/19 22:26 98 H 06/19/19 19:39 37.1 C 95 H 18 107/66 Pulse Ox 06/20/19 16:40 97 06/20/19 16:30 95 06/20/19 16:20 95 06/20/19 16:10 93 06/20/19 16:03 93 06/20/19 13:07 100 06/20/19 11:19 99 06/20/19 07:52 100 06/20/19 03:00 94 06/19/19 23:18 94 06/19/19 22:26 06/19/19 19:39 99 Pain Intensity Medial Head: Pain Intensity: 5 Abdomen: Pain Intensity: 0 Head: Pain Intensity: 8 Transfer of Care Handoff Completed per policy Notes Mental Status: alert / awake / arousable Patient Amnestic to Procedure: Yes Nausea / Vomiting: adequately controlled Pain: adequately controlled Airway Patency, RR, SpO2: stable & adequate BP & HR: stable & adequate Hydration State: stable & adequate Anesthetic Complications: no major complications apparent
[2019-06-20] MEDS ORDERED: LIDOCAINE HCL 1% 20 ML VIAL ONE (17:08)
[2019-06-20] MEDS ORDERED: SODIUM CHLORIDE 0.9% 250 ML IV PRN (17:36)
[2019-06-20 17:50] LABS: Hematocrit (blood only) 23.9 % (37-47); Hemoglobin 7.9 g/dL (12.0-16.0)
[2019-06-20] MEDS ORDERED: CALCIUM CHLORIDE 10% 1,000 MG in SODIUM CHLORIDE 0.9% 50 ML IV STA (17:53)
--- NOTE | 2019-06-20 17:55 | Critical Care Consultation ---
Date of Consultation June 20, 2019 Assessment & Plan (1) Common bile duct obstruction: Reason Critically Ill: Patient is a medically complicated 79 yo F here today s/p ERCP and laparoscopic cholecystectomy for acute cholecystitis, Neuro: [facility] ICU: Cardiac: Respiratory: * Hx COPD - currently satting __ on GI: * Acute cholecystitis - non-necrotizing. s/p ERCP with CBD stone removal and stent placement and laparoscopic cholecystomy 06/20. Liver enzymes trending down. continue to monitor. * elevated lipase - concern for acute pancreatitis. RENAL/LYTES: * Hx CKD, baseline creatinine ~ 1.5. Cr today at 1.56. * electrolytes WNL. calcium corrects to 9.4. Ionized Calcium ordered. BMP ordered. : ENDO: HEME: * Hgb at 7.9, down from 10.5 06/19. Type and crossed. 2 units of pRBC on hold in blood bank. check H+H q6hr. Transfuse if hgb <7. ID: * WBC normal * Nasal MRSA swab ___. LINES/IV ACCESS: CODE STATUS: full DVT PROPHYLAXIS: Thank you for allowing us to participate in the care of this patient. Please refer to my attending physician's documentation for any further recommendations. History of Present Illness Reason for Consultation: 79 yo medically complicated F admitted to the hospital on 06/16 for non-necrotizing acute cholecystitis, s/p ERCP and laparoscopic cholecystectomy today. During these procedures she was found to have a stone lodged in the common bile duct, the cystic duct, along with multiple stones in the gallbladder. Her gallbladder was removed along with the multiple obstructive stones; a stent was placed in the CBD. In the post-operative period she became hemodynamically unstable. SIRS criteria met. She was given 300cc of fluid, without improvement in her hemodynamic status. hemoglobin 7.9 at 5:30pm today. She has been typed and crossed, blood bank with 2 units on hold for her. Coags WNL, although there is suspicion for an underlying coagulopathy given her significant bruising with heparin administration. Lipase at 1001, up from 950 on 06/19. Liver enzymes elevated but trending down since admission. Mrs. Corona has a PMHx of lung cancer, COPD with a baseline oxygen requirement of __ liters, and A-fib on Eliquis. She has a pacemaker for tachy-rex syndrome. Bilateral pleural effusions were identified on CXR and A/P CT scan 06/16- she has had recurrent pleural effusions in the past which have required drainage via thoracentesis by Dr. Hickman. History was obtained through her surgeon Dr. Benjy Charlton and review of the chart. ICU team was asked to monitor in the post-operative period with attention to her hemodynamic instability. Attending Physician: Kaelyn Black MD Allergies Allergy/AdvReac Type Severity Reaction Status Date / Time lisinopril Allergy Intermediate RASH Verified 06/16/19 11:45 zolpidem AdvReac Severe hallucinati Verified 06/16/19 11:45 ons Home Medications Home Medications Medication Instructions Recorded Confirmed Type lorazepam 0.5 mg PO HS PRN 04/21/18 06/16/19 History metoprolol tartrate 100 mg PO BID 04/21/18 06/16/19 History pantoprazole 40 mg PO DAILY 04/21/18 06/16/19 History folic acid 1 mg PO DAILY 04/28/18 06/16/19 History nitroglycerin 0.4 mg SUBLINGUAL UD PRN 04/28/18 06/16/19 History Eliquis 2.5 mg PO BID 07/10/18 06/16/19 History aspirin [Aspirin Low Dose] 81 mg PO QAM 07/10/18 06/16/19 History diltiazem HCl 360 mg PO DAILY 07/10/18 06/16/19 History ondansetron HCl [Zofran] 8 mg PO TID PRN 07/10/18 06/16/19 History furosemide 40 mg tablet 40 mg PO BID #30 tab 12/20/18 06/16/19 History iron,carbonyl 65 mg-vitamin C 125 1 tab PO DAILY 12/21/18 06/16/19 History mg tablet,delayed release magnesium oxide 400 mg PO DAILY cap 12/21/18 06/16/19 History nystatin 100,000 unit/gram topical 1 appln TOP BID 12/21/18 06/16/19 History powder trazodone 50 mg tablet 50 mg PO HS 12/21/18 06/16/19 History albuterol sulfate [Ventolin HFA] 2 puff INHALATION QID PRN 12/30/18 06/16/19 History triamcinolone acetonide 0.1 % 1 appln TOP BID 03/28/19 06/16/19 History topical cream megestrol 400 mg/10 mL (40 mg/mL) 200 mg PO BID #240 ml 04/03/19 06/16/19 Rx oral suspension budesonide-formoterol HFA 160 2 puff INHALATION Q12H #10.2 gm 05/11/19 06/16/19 Rx mcg-4.5 mcg/actuation aerosol inhaler docusate sodium 100 mg PO BID 06/16/19 06/16/19 History polyethylene glycol 3350 [Miralax] 17 g PO QAM 06/16/19 06/16/19 History prochlorperazine maleate 10 mg PO Q6H PRN 06/16/19 06/16/19 History [Compazine] Patient History Medical History (Updated 06/20/19 @ 13:15 by Bobo Rider MD) A-fib (Inactive) Ok to continue Eliquis and restart all AVN blockers Acute on chronic renal failure Anemia CAD (coronary artery disease) (Inactive) Cancer LUNG CANCER S/P RECENT CHEMO (COMPLETED 04/01/18) Chronic obstructive pulmonary disease Diabetes mellitus, type II (Inactive) GERD (gastroesophageal reflux disease) Hiatal hernia Hyperlipidemia Hypertension Myocardial Infarction 1992= MEDICAL MANAGEMENT Osteoarthritis Osteoporosis PNA (pneumonia) (Inactive) Recurrent pleural effusion on right Tachy-rex syndrome s/p permanent pacemaker Volume overload (Inactive) Surgical History History of adenoidectomy History of appendectomy History of arthroscopy RIGHT KNEE History of cardiac cath 1992= NO STENTS History of cataract surgery BILATERAL History of section X4 History of colonoscopy History of hysterectomy JOSE WITH BSO History of lung surgery NAVIGATIONAL BRONCH/EBUS= 11/09/17= GRADE I VIEW, MAC 3, ETT 8.0 AT [facility] History of tonsillectomy History of tooth extraction Family History Grandfather (Paternal) Family hx of colon cancer Social History Preferred Language: Somali Communication Ability: Effective Visual Impairment: No Limitations Master Sonar Technician Required: No Beliefs That Will Affect Care: None marital status: Current Living Situation: Family Current Living Situation Comment: pt also has a caregiver come to her home Other Information That Helps Us Care for You: No Feels Safe at Home: Yes Safety Concerns: Feels Safe At This Time Smoking Status: Never smoker Cigarettes Per Day: 10 ; Do You Dip or Chew Tobacco: No ; Second Hand Exposure: No ; Hx Alcohol Use: No Hx Substance Use: No Results & Data Vital Signs (Past 12 Hours) Vital Signs Temp Pulse Pulse Resp BP BP Pulse Ox 06/20/19 17:40 96 H 21 97/60 L 100 06/20/19 17:30 36.3 C L 99 H 22 95/59 L 100 06/20/19 17:20 84 27 H 107/57 L 100 06/20/19 17:10 86 20 96/51 L 99 06/20/19 17:00 105 H 21 86/54 L 100 06/20/19 16:50 100 H 13 64/54 L 100 06/20/19 16:40 89 20 114/77 97 06/20/19 16:30 99 H 21 157/79 H 95 06/20/19 16:20 86 23 164/109 H 95 06/20/19 16:10 93 H 21 168/87 H 93 06/20/19 16:03 37.3 C 80 17 166/76 H 93 06/20/19 13:07 37 C 92 H 20 144/86 H 100 06/20/19 11:19 36.8 C 91 H 18 142/77 H 99 06/20/19 07:52 37.0 C 96 H 18 116/66 100 Resident Activity Tracking Resident Involvement: Resident Care Provided Care Provided: Adult Hospital Medicine
[2019-06-20 18:08] LABS: BUN Creatinine Ratio 10.1 (10-20); Calcium 8.2 mg/dl (8.5-10.1); Creatinine Clr Calc Pharmacy 19.6 ml/min; Est GFR (Non-African American) 31.1; Potassium 3.8 mmol/L (3.5-5.1)
[2019-06-20 18:21] LABS: INR 1.1 (0.9-1.1); Partial Thromboplastin Ratio 0.8; Partial Thromboplastin Time 21.1 Seconds (21.0-31.0); Prothrombin Time 11.5 Seconds (9.0-12.0)
--- NOTE | 2019-06-20 18:40 | Surgery Progress Note ---
Date of Service June 20, 2019 Assessment & Plan (1) Hypotension: She was recovering in the PACU and became hypotensive She is also very pale She has minimal drainage from her drain she does have some ecchymosis of her abdomen from prior injections We obtained a stat H&H and showed her hemoglobin to be 7.8 My concern is for intra-abdominal hemorrhage He is currently receiving 1 unit of blood and we are taking her back to the operating room for exploration I have discussed this with her friend Mariana and her son Viral Results & Data Vital Signs (Past 12 Hours) Vital Signs Temp Pulse Pulse Pulse Resp BP BP 06/20/19 18:30 36.5 C 79 20 93/48 L 06/20/19 18:10 82 20 06/20/19 18:00 90 21 06/20/19 17:50 100 H 18 06/20/19 17:40 96 H 21 06/20/19 17:30 36.3 C L 99 H 22 06/20/19 17:20 84 27 H 06/20/19 17:10 86 20 06/20/19 17:00 105 H 21 06/20/19 16:50 100 H 13 06/20/19 16:40 89 20 06/20/19 16:30 99 H 21 06/20/19 16:20 86 23 06/20/19 16:10 93 H 21 06/20/19 16:03 37.3 C 80 17 06/20/19 13:07 37 C 92 H 20 06/20/19 11:19 36.8 C 91 H 18 142/77 H 06/20/19 07:52 37.0 C 96 H 18 116/66 BP Pulse Ox 06/20/19 18:30 100 06/20/19 18:10 91/53 L 100 06/20/19 18:00 98/54 L 100 06/20/19 17:50 93/47 L 100 06/20/19 17:40 97/60 L 100 06/20/19 17:30 95/59 L 100 06/20/19 17:20 107/57 L 100 06/20/19 17:10 96/51 L 99 06/20/19 17:00 86/54 L 100 06/20/19 16:50 64/54 L 100 06/20/19 16:40 114/77 97 02/25/20 16:30 157/79 H 95 02/25/20 16:20 164/109 H 95 06/20/19 16:10 168/87 H 93 06/20/19 16:03 166/76 H 93 06/20/19 13:07 144/86 H 100 06/20/19 11:19 99 06/20/19 07:52 100 PG Care Time/CCT Total # of Minutes Spent Total Time Spent with Patient: Total time spent is greater than 50% in coordination of care (as documented) at patient's floor/unit and/or counseling patient: Coding Level of Care Code None Diagnoses Hypotension I95.9
--- NOTE | 2019-06-20 18:56 | Communication Note ---
Date of Service: June 20, 2019 Patient was not fully evaluated as she had been in OR and PACU most of the day. When I went down to see patient in PACU, she was reported to be hypotensive, pale and being wheeled back to OR for concern for intra-abdominal bleeding. Discussed patient with Flight Operation Coordinator Dr. Diaz who will follow up and evaluate patient post op.
--- NOTE | 2019-06-20 19:36 | Operative Report (OR) ---
DATE OF OPERATION: 06/20/2019 NAME OF THE OPERATION: Laparoscopic cholecystectomy. PREOPERATIVE DIAGNOSES: Common bile duct obstruction with acute cholecystitis. POSTOPERATIVE DIAGNOSES: Common bile duct obstruction with acute cholecystitis. STAFF SURGEON: Benjy Charlton MD CAN FILLING ROOM SWEEPER: Roney Mccartney PA-C. ANESTHESIA: General. DESCRIPTION OF PROCEDURE: The patient was in the operating room undergoing ERCP. We then proceeded with laparoscopic cholecystectomy. Her abdomen was prepped and draped in usual fashion. 0.5% plain Marcaine was used to anesthetize all incisions. Incision was made above the umbilicus, carrying dissection down to the fascia, placing a Veress needle producing pneumoperitoneum. An 11 mm port was placed at this level. The patient was placed in reverse Trendelenburg position. Three 5 mm ports were placed under visualization, 1 cephalad and 2 laterally. Gallbladder was edematous. It was retracted. Dissection was carried out the nino hepatis. She did have some adhesions from chronic inflammation. She did have stones in the gallbladder. Several stones came out of the gallbladder with retraction. These were removed. The gallbladder was retracted and then the cystic duct and cystic artery were clipped and transected. The gallbladder was dissected away from the liver bed. There was acute edema in the posterior wall. It was placed in an Endobag. After appropriate irrigation and hemostasis, a 15 round Artie-العلي drain placed into the subhepatic space through the lateral 5 mm port site, secured using 3-0 nylon suture. The gallbladder was removed through the umbilical site. All ports were removed. Fascia at the umbilicus closed using 0 Vicryl suture, then the skin was reapproximated using 4-0 nylon suture. My assistant cook helped with prepping, draping, removal of the gallbladder and closure of the wounds. I attest to the content of the Intraoperative Record and any orders documented therein. Any exception s are noted below.
[2019-06-20] MEDS ORDERED: FLOSEAL HEMOSTATIC MATRIX 10ML TOP ONE (19:37)
--- NOTE | 2019-06-20 19:41 | Post Operative Brief Note ---
PG Immediate Post Op with CF Date of Surgery June 20, 2019 Pre & Post Diagnosis Operation Date: 06/20/19 07:00 Pre-Op Diagnosis: Common Bile Duct Stones, Cholangitis, Common Bile Duct Obstruction, Acute Cholecystitis Post-Op Diagnosis: Common Bile Duct Stones, Cholangitis, Common Bile Duct Obstruction, Acute Cholecystitis Operation Date: 06/20/19 07:00 <No data on this case meets the specified criteria> Operation Date: 06/20/19 18:30 <No data on this case meets the specified criteria> Operation Date: 06/20/19 18:55 Pre-Op Diagnosis: Acute Bleeding Post-Op Diagnosis: Post operative hemorrhage I identified the patient and participated in the time-out.: Yes Procedure Operation Date: 06/20/19 07:00 Actual Procedures s Laparoscopic Cholecystectomy(Not Applicable) - Benjy Charlton MD, FACS p Endoscopic Retrograde Cholangiopancreatogram, Endoscopic Ultrasonography Upper, Esophagogastroduodenoscopy (Not Applicable) - Allyssa Clark MD Operation Date: 06/20/19 07:00 <No data on this case meets the specified criteria> Operation Date: 06/20/19 18:30 Actual Procedures p Exploratory Laparoscopy, Possible Open(Not Applicable) - Benjy Charlton MD, FACS Operation Date: 06/20/19 18:55 Actual Procedures p Laparoscopy, Laparotomy, Over sew Bleeding, Abdominal washout - Benjy Charlton MD, FACS Surgeon Benjy Charlton MD, FACS Advertising Dispatch Clerks Supervisor None Estimated Blood Loss 750 Findings Consistent with Post-Op Diagnosis Specimens Specimen Description: None collected per surgeon Drains [place] Catheter and [place] Drain (Portion of marion drain left in patient as drain, per Dr. Charlton)
--- NOTE | 2019-06-20 20:10 | Anesthesiology Progress Note ---
Date of Service June 20, 2019 Anesthesia Post Procedure Vital Signs Vital Signs: Temp Pulse Pulse Pulse Resp BP BP 06/20/19 18:30 36.5 C 79 98 H 15 93/48 L 06/20/19 18:20 36.3 C L 90 20 06/20/19 18:10 82 20 06/20/19 18:00 90 21 06/20/19 17:50 100 H 18 06/20/19 17:40 96 H 21 06/20/19 17:30 36.3 C L 99 H 22 06/20/19 17:20 84 27 H 06/20/19 17:10 86 20 06/20/19 17:00 105 H 21 06/20/19 16:50 100 H 13 06/20/19 16:40 89 20 06/20/19 16:30 99 H 21 06/20/19 16:20 86 23 06/20/19 16:10 93 H 21 06/20/19 16:03 37.3 C 80 17 06/20/19 13:07 37 C 92 H 20 06/20/19 11:19 36.8 C 91 H 18 142/77 H 06/20/19 07:52 37.0 C 96 H 18 116/66 06/20/19 03:00 36.9 C 66 18 06/19/19 23:18 36.6 C 105 H 18 06/19/19 22:26 98 H BP Pulse Ox 06/20/19 18:30 99/50 L 100 06/20/19 18:20 92/54 L 100 06/20/19 18:10 91/53 L 100 06/20/19 18:00 98/54 L 100 06/20/19 17:50 93/47 L 100 06/20/19 17:40 97/60 L 100 06/20/19 17:30 95/59 L 100 06/20/19 17:20 107/57 L 100 06/20/19 17:10 96/51 L 99 06/20/19 17:00 86/54 L 100 06/20/19 16:50 64/54 L 100 06/20/19 16:40 114/77 97 06/20/19 16:30 157/79 H 95 06/20/19 16:20 164/109 H 95 06/20/19 16:10 168/87 H 93 06/20/19 16:03 166/76 H 93 06/20/19 13:07 144/86 H 100 06/20/19 11:19 99 06/20/19 07:52 100 06/20/19 03:00 145/97 H 94 06/19/19 23:18 151/93 H 94 06/19/19 22:26 Pain Intensity Medial Head: Pain Intensity: 5 Abdomen: Pain Intensity: 0 Head: Pain Intensity: 8 Transfer of Care Handoff Completed per policy Notes Mental Status: see notes below Nausea / Vomiting: adequately controlled Pain: adequately controlled Airway Patency, RR, SpO2: see Notes below BP & HR: stable & adequate Hydration State: stable & adequate Anesthetic Complications: no major complications apparent Notes: Due to her past lung history and the fact that she was working hard to breathe prior to returning to the OR we left her intubated and took her straight to the ICU. Her vitals have improved with the blood and fluid and are stable. No trouble with oxygenation. They are going to do a chest film to help evaluate her fluid status as well as confirm the tube position.
[2019-06-20] MEDS ORDERED: MoRPHine SULFATE 2 MG/ML CARP IV PRN ×2 (20:13)
[2019-06-20] MEDS ORDERED: PROMETHAZINE HCL 12.5 MG in SODIUM CHLORIDE 0.9% 50 ML IV PRN (20:13)
[2019-06-20] MEDS ORDERED: PIPERACILL/TAZOBAC CONSULT ACTIVE PRN (20:13)
[2019-06-20] MEDS ORDERED: PIPERACILLIN/TAZOBACTAM 3.375 GM in DEXTROSE 5% 100 ML IV SCH (20:13)
[2019-06-20] MEDS ORDERED: ACETAMINOPHEN 325 MG TAB PO PRN (20:13)
[2019-06-20] MEDS ORDERED: MIDAZOLAM HCL 1 MG/ML 2ML VIAL IV PRN (20:14)
[2019-06-20] MEDS ORDERED: ICU PROTOCOL FOR HYPERGLYCEMIA PRN (20:14)
[2019-06-20] MEDS ORDERED: ACETAMINOPHEN 1,000 MG/100 ML VIAL IV PRN (20:14)
[2019-06-20 20:30] LABS: iSTAT Allen Test Pass; iSTAT Art Bld Gas pCO2 Correct 30 mmHg (35-46); iSTAT Arterial Blood Gas HCO3 20 meg/L (19-24); iSTAT Arterial Blood Gas pCO2 32 mmHg (35-46); iSTAT Arterial Blood Gas pH 7.42 (7.35-7.45); iSTAT Arterial Blood Gas pO2 116 mmHg (80-95); iSTAT Arterial Blood Gas pO2 C 107; iSTAT Carbon Dioxide 21 mmol/L (24-31); iSTAT FiO2 40 %; iSTAT Hematocrit 29 % (37-47); iSTAT Hemoglobin 9.9 g/dl (12.0-16.0); iSTAT Potassium 3.8 mmol/L (3.3-5.0); iSTAT Site R Radial; iSTAT Sodium 140 mmol/L (135-144)
[2019-06-20] MEDS: SODIUM CHLORIDE 0.9% 1000ML 1,000 ML IV SCH (20:47)
--- NOTE | 2019-06-20 20:56 | Critical Care Consultation ---
Date of Consultation June 20, 2019 Assessment & Plan (1) Admitted to intensive care unit: Reason Critically Ill: 79-year-old female presenting with pancreatitis and choledocholithiasis status post ERCP with laparoscopic cholecystectomy with postoperative bleeding requiring exploratory laparoscopy with findings consistent with bleeding vessel which was successfully ligated. Patient remains intubated and requiring close hemodynamic monitoring status post extensive surgical intervention today. NEURO - * CAM ICU: POSITIVE * Sedation: Versed PRN pushes. * Pain: Fentanyl PRN pushes CARDIAC/VASCULAR - * Hypotension: * Multifactorial in the setting of acute volume loss secondary to bleeding, anesthesia, acute illness, etc. * Trend H&H's. Transfuse as needed. * Judicious use of IV fluids in the known CHF patient with significant prior history of pleural effusions. While EF is appropriate, would be cautious and persistently overloaded patient. * Consider pressors if necessary. Would likely start with Alexander-Synephrine in the chronic A. fib patient. Review of recent echocardiogram demonstrates no severe aortic stenosis or other preclusion to the utility of Alexander- Synephrine. * A. fib: * Continue with home medications once extubated. * PRN IV doses of metoprolol and diltiazem as needed. * Monitor on telemetry. RESPIRATORY - * Requiring persistent endotracheal intubation status post surgical intervention: * Titrate down settings as tolerated. * ABGs as needed. * Postoperative AB.44/29.4/107/20.4 * The current bilateral pleural effusions: * Currently appears to be ventilating well and requiring minimal PEEP. * Assessment tomorrow for possible utility in repeat thoracentesis for patient comfort, however doing well at this point. No need for emergent thoracentesis at this time. * COPD: * Continue home treatments as necessary. * Non-small cell lung CA status post chemotherapy. GI/NUTRITION - * Pancreatitis secondary to choledocholithiasis: * Status post ERCP with stenting to the ventral pancreatic duct and common bile duct. * Status post cholecystectomy for cholecystitis. * Continue per GI/surgical recommendations. * Trend lipase. * Continue with IV fluids. * N.p.o. status at this point. * Prophylaxis: Famotidine RENAL/LYTES - * CKD IV: * No significant electrolyte derangements at this point. * Replace electrolytes as needed. * IVF: NSS@50 mL/h. * Will add supplemental boluses as needed. - * Mercer in place - Strict I&Os. * Difficult Mercer catheterization requiring placement by urology. ENDO - * Diabetes: * BSGs per unit protocol. ISS --> gtt per unit policy. HEME - * Acute blood loss anemia: * Received 2 units PRBC in the operating room. * Trend and transfuse as needed. ID - * Choledocholithiasis: * Currently covered with Zosyn. LINES/IV ACCESS - * PIVs x2 * ET tube * Mercer catheter * JAZLYN drain DVT PROPHYLAXIS - * Per GI, hold on return to patient's home anticoagulant for 2 days status post stenting/sphincterotomy. * SCDs I have personally spent 60 minutes of critical care time in the direct management of this patient. This is a life/limb threatening event. This includes time spent evaluating patient, direct bedside care, chart review, placing orders, interpretation of diagnostic studies, discussion with consultants, patient, and family members, as well as other required patient management activities. This time is exclusive of all separately billable procedures, and teaching time and separate from and in addition to any other critical care service time. Thank you for allowing us to participate in the care of this patient. Please refer to my attending physician's documentation for any further recommendations. (2) Postoperative haemorrhage: (3) S/P ERCP: (4) S/P laparoscopic cholecystectomy: (5) Acute blood loss anemia: (6) Hypotension: (7) Cholecystitis: (8) Elevated LFTs: (9) Common bile duct obstruction: (10) Chronic atrial fibrillation: (11) Stage 4 chronic kidney disease: (12) HTN (hypertension): (13) HLD (hyperlipidemia): (14) COPD (chronic obstructive pulmonary disease): Supervising Physician Co-Signing Physician Notes I have personally evaluated and examined this patient. I agree with assessment and plan of Andrea Rowe PA-C. I evaluated the patient at approximately [id number]. I also discussed the patient with Dr. Charlton. I saw the patient in the PACU and ordered additional labs. Patient was found to have a significant drop in her hemoglobin and was taken promptly back to the operating room. The above note is reflective of her care and history and physical subsequent to her return from her exploratory surgery. I have personally spent 35 minutes of critical care time in the direct management of this patient. This is a life/limb threatening event. This includes time spent evaluating patient, direct bedside care, chart review, placing orders, interpretation of diagnostic studies, discussion with consultants, patient, and/or family members regarding treatment decisions, as well as other required patient management activities. This time is exclusive of all separately billable procedures, and teaching time and separate from and in addition to any other critical care service time. History of Present Illness Attending Physician: Kaelyn Black MD History of Present Illness Patient is an 79-year-old female with a significant past medical history of coronary artery disease, hypertension, hyperlipidemia, chronic CHF, A. fib, chronic pleural effusions, COPD, non-small cell lung cancer status post chemotherapy treatments, obstructive sleep apnea, and CKD 4. Patient was admitted to this facility with abdominal pain, shortness of breath, and transaminitis as well as pancreatitis. Patient underwent ERCP today with 1 stent placed to the ventral pancreatic duct and a second stent placed to the common bile duct with removal of stone. After ERCP, the patient underwent laparoscopic cholecystectomy. While in PACU, the patient was noted to be hypotensive and tachycardic. Her repeat H&H demonstrated precipitous drop. The patient was resuscitated with 2 units PRBCs and taken emergently to the operating suite where she was opened back up and found to have a small arterial bleed responsible for acute postoperative bleeding. This was ligated and the patient was left intubated and brought to the ICU for continued management. Upon arrival in the ICU, the patient is intubated and sedated. Her blood pressures remained soft in the 90s to 100s. She is saturating well on minimal settings. Patient unable to provide historical information at this time secondary to current state of sedation with intubation. Allergies Allergy/AdvReac Type Severity Reaction Status Date / Time lisinopril Allergy Intermediate RASH Verified 06/16/19 11:45 zolpidem AdvReac Severe hallucinati Verified 06/16/19 11:45 ons Home Medications Home Medications Medication Instructions Recorded Confirmed Type lorazepam 0.5 mg PO HS PRN 04/21/18 06/16/19 History metoprolol tartrate 100 mg PO BID 04/21/18 06/16/19 History pantoprazole 40 mg PO DAILY 04/21/18 06/16/19 History folic acid 1 mg PO DAILY 04/28/18 06/16/19 History nitroglycerin 0.4 mg SUBLINGUAL UD PRN 04/28/18 06/16/19 History Eliquis 2.5 mg PO BID 07/10/18 06/16/19 History aspirin [Aspirin Low Dose] 81 mg PO QAM 07/10/18 06/16/19 History diltiazem HCl 360 mg PO DAILY 07/10/18 06/16/19 History ondansetron HCl [Zofran] 8 mg PO TID PRN 07/10/18 06/16/19 History furosemide 40 mg tablet 40 mg PO BID #30 tab 12/20/18 06/16/19 History iron,carbonyl 65 mg-vitamin C 125 1 tab PO DAILY 12/21/18 06/16/19 History mg tablet,delayed release magnesium oxide 400 mg PO DAILY cap 12/21/18 06/16/19 History nystatin 100,000 unit/gram topical 1 appln TOP BID 12/21/18 06/16/19 History powder trazodone 50 mg tablet 50 mg PO HS 12/21/18 06/16/19 History albuterol sulfate [Ventolin HFA] 2 puff INHALATION QID PRN 12/30/18 06/16/19 History triamcinolone acetonide 0.1 % 1 appln TOP BID 03/28/19 06/16/19 History topical cream megestrol 400 mg/10 mL (40 mg/mL) 200 mg PO BID #240 ml 04/03/19 06/16/19 Rx oral suspension budesonide-formoterol HFA 160 2 puff INHALATION Q12H #10.2 gm 05/11/19 06/16/19 Rx mcg-4.5 mcg/actuation aerosol inhaler docusate sodium 100 mg PO BID 06/16/19 06/16/19 History polyethylene glycol 3350 [Miralax] 17 g PO QAM 06/16/19 06/16/19 History prochlorperazine maleate 10 mg PO Q6H PRN 06/16/19 06/16/19 History [Compazine] Patient History Medical History A-fib (Inactive) Ok to continue Eliquis and restart all AVN blockers Acute on chronic renal failure Anemia CAD (coronary artery disease) (Inactive) Cancer LUNG CANCER S/P RECENT CHEMO (COMPLETED 04/01/18) Chronic obstructive pulmonary disease Diabetes mellitus, type II (Inactive) GERD (gastroesophageal reflux disease) Hiatal hernia Hyperlipidemia Hypertension Myocardial Infarction 1992= MEDICAL MANAGEMENT Osteoarthritis Osteoporosis PNA (pneumonia) (Inactive) Recurrent pleural effusion on right Tachy-rex syndrome s/p permanent pacemaker Volume overload (Inactive) Surgical History History of adenoidectomy History of appendectomy History of arthroscopy RIGHT KNEE History of cardiac cath 1992= NO STENTS History of cataract surgery BILATERAL History of section X4 History of colonoscopy History of hysterectomy JOSE WITH BSO History of lung surgery NAVIGATIONAL BRONCH/EBUS= 11/09/17= GRADE I VIEW, MAC 3, ETT 8.0 AT [facility] History of tonsillectomy History of tooth extraction Family History Grandfather (Paternal) Family hx of colon cancer Social History Preferred Language: Slovenian Communication Ability: Effective Visual Impairment: No Limitations Home Energy Auditor Required: No Beliefs That Will Affect Care: None marital status: Current Living Situation: Family Current Living Situation Comment: pt also has a caregiver come to her home Other Information That Helps Us Care for You: No Feels Safe at Home: Yes Safety Concerns: Feels Safe At This Time Smoking Status: Never smoker Cigarettes Per Day: 10 ; Do You Dip or Chew Tobacco: No ; Second Hand Exposure: No ; Hx Alcohol Use: No Hx Substance Use: No Review of Systems Review of Systems: Unobtainable due to endotracheal tube Physical Exam Physical Exam: VITAL SIGNS - Vital signs and nursing notes were reviewed. GENERAL - 79-year-old female appearing her stated age who is in no acute distress. Intubated and sedated. SKIN - Postoperative dressings clean, dry, and intact. HEAD - NC/AT. EYES - PERRL with EOMI bilaterally. Sclera anicteric. EARS - No deformities of external structures noted on gross examination bilaterally. NOSE - Midline and without cyanosis. No epistaxis or purulent drainage noted. MOUTH/OROPHARYNX - ET Tube in place. Without perioral cyanosis. NECK - Supple to palpation. No nuchal rigidity. LUNGS - Chest wall symmetric without accessory muscle use, intercostals retractions, or central cyanosis. Decreased breath sounds at the bases bilaterally. No wheezes, rales, or rhonchi appreciated. CARDIAC - RRR with S1/S2. No murmur, rubs, or gallops appreciated. ABDOMEN - Abdominal contour flat without pulsations or visible masses. JAZLYN drain in place with bloody serosanguineous drainage noted. Surgical dressings clean, dry, and intact. BS distant all four quadrants. No tenderness, palpable masses, hepatosplenomegaly, or ascites noted. EXTREMITIES - No clubbing or peripheral cyanosis. No pretibial edema present. +3/5 radial and dorsalis pedis pulses palpated throughout. +5/5 strength noted in UE/LE bilaterally. NEUROLOGIC - Cranial nerves II through XII grossly intact. Unable to fully assess secondary to state of sedation. Results & Data ([facility] [place]) Vital Signs (Past 12 Hours) Vital Signs Temp Pulse Pulse Pulse Resp BP BP 06/20/19 18:30 36.5 C 79 98 H 15 93/48 L 06/20/19 18:20 36.3 C L 90 20 06/20/19 18:10 82 20 06/20/19 18:00 90 21 06/20/19 17:50 100 H 18 06/20/19 17:40 96 H 21 06/20/19 17:30 36.3 C L 99 H 22 06/20/19 17:20 84 27 H 06/20/19 17:10 86 20 06/20/19 17:00 105 H 21 06/20/19 16:50 100 H 13 06/20/19 16:40 89 20 06/20/19 16:30 99 H 21 06/20/19 16:20 86 23 06/20/19 16:10 93 H 21 06/20/19 16:03 37.3 C 80 17 06/20/19 13:07 37 C 92 H 20 06/20/19 11:19 36.8 C 91 H 18 142/77 H BP Pulse Ox 06/20/19 18:30 99/50 L 100 06/20/19 18:20 92/54 L 100 06/20/19 18:10 91/53 L 100 06/20/19 18:00 98/54 L 100 06/20/19 17:50 93/47 L 100 06/20/19 17:40 97/60 L 100 06/20/19 17:30 95/59 L 100 06/20/19 17:20 107/57 L 100 06/20/19 17:10 96/51 L 99 06/20/19 17:00 86/54 L 100 06/20/19 16:50 64/54 L 100 06/20/19 16:40 114/77 97 06/20/19 16:30 157/79 H 95 06/20/19 16:20 164/109 H 95 06/20/19 16:10 168/87 H 93 06/20/19 16:03 166/76 H 93 06/20/19 13:07 144/86 H 100 06/20/19 11:19 99 Coding Level of Care Code Critical Care 1st 30-74 mins Diagnoses Admitted to intensive care unit Z78.9 Postoperative haemorrhage S/P ERCP Z98.890 S/P laparoscopic cholecystectomy Z90.49 Acute blood loss anemia D62 Hypotension I95.9 Cholecystitis K81.9 Elevated LFTs R94.5 Common bile duct obstruction K83.1 Chronic atrial fibrillation I48.20 Stage 4 chronic kidney disease N18.4 HTN (hypertension) I10 HLD (hyperlipidemia) E78.5 COPD (chronic obstructive pulmonary disease) J44.9
[2019-06-20 21:01] LABS: Albumin Level 1.8 gm/dl (3.4-5.0); BUN Creatinine Ratio 10.7 (10-20); Calcium 8.8 mg/dl (8.5-10.1); Creatinine Clr Calc Pharmacy 20.5 ml/min; Est GFR (African American) 38.1; Est GFR (Non-African American) 32.8; Magnesium 1.6 mg/dl (1.8-2.4); Potassium 4.2 mmol/L (3.5-5.1)
[2019-06-20 21:16] LABS: Bilirubin Direct 0.4 mg/dl (0-0.2); Bilirubin,Total 0.9 mg/dl (0.2-1); Phosphorus 4.5 mg/dl (2.5-4.9); Total Protein 4.6 gm/dl (6.4-8.2)
[2019-06-20 21:26] LABS: Basophils # (auto) 0.02 K/uL (0-0.2); Basophils % (auto) 0.1 %; Echinocytes 2+; Eosinophils # (auto) 0.06 K/uL (0-0.5); Eosinophils % (auto) 0.2 %; Hematocrit (blood only) 39.9 % (37-47); Hemoglobin 13.3 g/dL (12.0-16.0); Immature Granulocytes # (auto) 0.16 K/uL (0.00-0.02); Immature Granulocytes % (auto) 0.6 %; Lymphocytes # (auto) 1.74 K/uL (1.2-3.4); Mean Corpuscular Hemoglobin 31.1 pg (25-34); Mean Corpuscular Hgb Conc 33.3 g/dL (32-36); Mean Corpuscular Volume 93.2 fL (80-100); Mean Platelet Volume 9.5 fL (7.4-10.4); Monocytes # (auto) 1.62 K/uL (0.11-0.59); Monocytes % (auto) 6.5 %; Neutrophils # (auto) 21.41 K/uL (1.4-6.5); Neutrophils % (auto) 85.6 %; Platelet Count 155 K/uL (130-400); RDW Coefficient of Variation 15.4 % (11.5-14.5); RDW Standard Deviation 51.3 fL (36.4-46.3); Red Blood Count 4.28 M/uL (4.2-5.4); White Blood Count 25.01 K/uL (4.8-10.8)
[2019-06-20] MEDS ORDERED: MAGNESIUM SULFATE / D5W 1 GM/100 ML BAG IV ONE (21:26)
--- NOTE | 2019-06-20 21:30 | XRay Report ---
XR chest 1V portable CLINICAL HISTORY: tube placement s/p intubation/og RESPIRATORY FAILURE COMPARISON STUDY: 06/16/2019 FINDINGS: Endotracheal tube has been placed 26 mm above the uriel. There is an enteric tube which pa sses into the stomach. There is a left subclavian central venous pacemaker. The heart is mildly enlar ged. There are bilateral pleural effusions. There are basilar opacities, atelectatic versus infectiou s/inflammatory.[There is improving pulmonary vascular congestion. IMPRESSION: 1. Cardiomegaly and persistent bilateral pleural effusions with associated basilar airspace opacities 2. Improving congestive failure 3. Interval placement of an enteric tube and endotracheal tube. ACT 112: Negative or not required by law. Electronically signed by: Theo Traore M.D. 06/20/2019 9:28 PM
[2019-06-20] MEDS: FAMOTIDINE 20 MG in SYRINGE 3 ML IV SCH (21:40)
[2019-06-20] MEDS ORDERED: STAT IV Infusion **Titration per Protocol STA (21:44)
[2019-06-20] MEDS ORDERED: SODIUM CHLORIDE 0.9% 1000ML 500 ML IV ONE (21:45)
[2019-06-20] MEDS: PHENYLEPHRINE HCL 20 MG in DEXTROSE 5% 500 ML IV SCH (21:53)
--- NOTE | 2019-06-20 22:11 | Procedure Note ---
Procedure Note Date of Service June 20, 2019 Procedure: Arterial Line Placement Attending: Dr. Arias APC: Jese Rowe PA-C Indication: Monitoring on Pressors Anesthesia: None Emergent consent implied in the setting of change in clinical status including profound hypotension and need for frequent lab draws, ABGs, etc. in the hem odynamically unstable postoperative patient. A time-out was completed verifying correct patient, procedure, site, positioning, and implant(s) or special equipment if applicable. Allens test was performed to ensure adequate perfusion. Patients LEFT wrist was prepped and draped in the usual sterile fashion. Ultrasound guidance was used to aid needle placement. A 20g Arrow arterial line was introduced into the LEFT Radial artery. Catheter was threaded, and the needle was removed with appropriate blood return. Good waveform was observed. The patient tolerated the procedure well. Confirmation of placement with ultrasound. Blood Loss: Minimal Complications: None Procedural Ultrasound Guidance: Procedure Date: 06/20/2019 Indication: ABGs, Frequent labs, pressors. Attending: Dr. Arias APC: Jese Rowe PA-C Artery Identified: YES Line confirmed in Artery with ultrasound: YES Complications: NONE Patient tolerated procedure: WELL Coding CPT Codes Tubes, Drains, and Vasc Access - Tubes, Drains, and Vasc Access: [id number] Place Catheter In Artery ([id number]) [facility] Procedure Codes (Charges) Tubes, Drains, and Vasc Access Procedure 1: Tubes, Drains, and Vasc Access: [id number] Place Catheter In Artery
[2019-06-20 22:56] LABS: Hematocrit (blood only) 30.2 % (37-47); Hemoglobin 10.4 g/dL (12.0-16.0)
[2019-06-21] MEDS: PIPERACILLIN/TAZOBACTAM 3.375 GM in DEXTROSE 5% 100 ML IV SCH ×2 (01:41→14:19)
[2019-06-21] MEDS ORDERED: SODIUM CHLORIDE 0.9% 1000ML 250 ML IV ONE (02:11)
[2019-06-21] MEDS ORDERED: ALBUMIN 25% 50 ML IV SCH (02:15)
[2019-06-21 02:39] LABS: Hematocrit (blood only) 31.4 % (37-47); Hemoglobin 10.7 g/dL (12.0-16.0); Mean Corpuscular Hemoglobin 30.6 pg (25-34); Mean Corpuscular Hgb Conc 34.1 g/dL (32-36); Mean Corpuscular Volume 89.7 fL (80-100); Mean Platelet Volume 9.3 fL (7.4-10.4); Platelet Count 156 K/uL (130-400); RDW Standard Deviation 51.7 fL (36.4-46.3)
[2019-06-21 02:52] LABS: INR 1.2 (0.9-1.1); Prothrombin Time 12.2 Seconds (9.0-12.0)
[2019-06-21 03:02] LABS: Albumin Level 1.7 gm/dl (3.4-5.0); BUN Creatinine Ratio 11.4 (10-20); Calcium 8.2 mg/dl (8.5-10.1); Creatinine Clr Calc Pharmacy 18.7 ml/min; Est GFR (African American) 33.9; Est GFR (Non-African American) 29.2; Magnesium 1.9 mg/dl (1.8-2.4); Potassium 3.8 mmol/L (3.5-5.1)
[2019-06-21 03:06] LABS: Albumin Globulin Ratio 0.7 (0.9-2); Bilirubin Direct 0.4 mg/dl (0-0.2); Bilirubin,Total 0.9 mg/dl (0.2-1); Globulin 2.5 gm/dl (2.5-4.0); Phosphorus 4.7 mg/dl (2.5-4.9); Total Protein 4.2 gm/dl (6.4-8.2)
[2019-06-21 03:14] LABS: Basophils # (auto) 0.01 K/uL (0-0.2); Eosinophils # (auto) 0.01 K/uL (0-0.5); Immature Granulocytes # (auto) 0.22 K/uL (0.00-0.02); Lymphocytes # (auto) 2.55 K/uL (1.2-3.4); Lymphocytes % (auto) 11.6 %; Monocytes # (auto) 1.56 K/uL (0.11-0.59); Monocytes % (auto) 7.1 %; Neutrophils # (auto) 17.55 K/uL (1.4-6.5); Neutrophils % (auto) 80.3 %
[2019-06-21] MEDS: fentaNYL citrate 100 MCG/2 ML VIAL IV PRN (04:17)
--- NOTE | 2019-06-21 05:50 | Operative Report (OR) ---
DATE OF OPERATION: 06/20/2019 NAME OF OPERATION: Laparoscopy with laparotomy and oversewing of bleeding vessel and abdominal washout. PREOPERATIVE DIAGNOSIS: Intraabdominal hemorrhage. POSTOPERATIVE DIAGNOSIS: Intraabdominal hemorrhage. STAFF SURGEON: Benjy Charlton MD GENERATION TECHNOLOGIST: Nurses. ANESTHESIA: General. DESCRIPTION OF PROCEDURE: The patient was brought in the operating room and placed on the operating table in supine position emergently from the recovery room. Pneumatic stockings were in place. We were unable to place a Mercer catheter. Dr. Saxena was going to come into the room later to perform this. The patient's abdomen was prepped and draped in usual fashion. Her supraumbilical incision was opened, 11 mm port placed and pneumoperitoneum produced. Passing the camera, the patient had significant hematoma with in the abdomen. At this point, I performed a right subcostal incision, carrying dissection down into the abdomen encountering significant clot and blood which was aspirated. a pack was placed behind the liver and then dissection carried down into the subhepatic space, identifying an artery which was most likely the cystic artery bleeding. It was ligated using a 2-0 chromic suture. There were some clips in the area. These were left alone. This stopped the bleeding. At this point, the abdomen was washed out using warm saline solution. Again, the site checked and was hemostatic. FloSeal was placed into the hepatic bed. A 19 round Artie-العلي drain placed into the subhepatic space through a separate stab incisions and secured using 3-0 nylon suture. After I was sure the hemorrhage had ceased, we closed the posterior fascia and peritoneum using running #1 chromic suture, anterior fascia using running #1 PDS suture. Quarter inch Harned drain placed in the subcutaneous space, secured to the skin using 4-0 nylon suture and then the skin reapproximated using haley. The umbilical site closed using 0 chromic for the fascia and haley for the skin. At this point, Dr. Saxena proceeded with Mercer placement. Estimated blood loss was 750 mL. I attest to the content of the Intraoperative Record and any orders documented therein. Any exceptions are noted below. MTDD
--- NOTE | 2019-06-21 06:06 | Critical Care Progress Note ---
Date of Service June 21, 2019 Assessment & Plan (1) Common bile duct obstruction: Reason Critically Ill: Medically complicated 79-year-old female presenting with pancreatitis secondary to choledocholithiasis status post ERCP with laparoscopic cholecystectomy with postoperative bleeding requiring exploratory laparoscopy, notable for cystic artery bleed which was successfully ligated. Patient remains intubated and requiring close hemodynamic monitoring status post extensive surgical intervention on 06/20. 24 hrs: Patient has been extubated and is satting well on her baseline oxygen requirement. She is maintaining MAPS > 60 on Alexander-Synephrine. Her lipase has been trended to normal. Pain control regimen changed to Dilaudid. PT/OT ordered. Neuro: [facility] ICU: negative - sedation has been weaned - will d/c fentanyl and order Dilaudid 0.2mg q3h, per pain scale protocol Cardiac: * Hypotension: BP currently 101/53, MAP 69. Goal MAP > 60. likely secondary to blood loss in yesterday's surgeries. Currently on Alexander-synephrine drip, set at 0.5 for BP support. * Hx CHF: EHCO 06/18 with persevered EF of 60-65%. Holding patient's home metoprolol while on Alexander-Synephrine * Hx persistent A-fib - currently rate 90-100. anticoagulated on Eliquis. holding home metoprolol and diltiazem while using alexander-synephrine. 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 * Hx pacemaker - patient follows with [facility] cardiology. will touch base with on-call provider to assess for records of recent interrogation Respiratory: * Respiratory Alkalosis; monitor ABGs * Hx recurrent pleural effusions - moderate bilateral pulmonary effusions noted on CXR today. d/c maintenance IVF to avoid worsening volume overload. * Hx COPD - currently satting well on baseline O2 requirement of 3L via NC. continue home breo-ellipta, albuterol prn. * Hx Non-small cell lung cancer - status post chemotherapy. GI: * Choledocholithiasis - non-necrotizing. s/p ERCP with CBD stone removal and stent placement in ventral pancreatic duct and common bile duct and laparoscopic cholecystomy 06/20. Alk phos trending down. Tbili normal. Liver enzymes trended down before slight increase. continue to monitor. GI following, appreciate recs. * Acute pancreatitis - secondary to choledocholithiases. s/p above procedures. lipase elevated to 1001 on 06/20, down to 390 today. gentle IVF. NPO. Dilaudid for pain management. * stress ulcer prophylaxis with Pepcid drip RENAL/LYTES: * Hx CKD, baseline creatinine ~ 1.5. Cr today at 1.64. Likely related to hypoperfusion. * electrolytes WNL, calcium corrects to 10.0, ionized Ca normal prior to surgery; will repeat today : * urinary retention - urology was consulted intraoperatively during laparotomy for difficulty with catheter placement. - mendoza in place - strict Is/Os ENDO: * Hx diabetes: BSGs per unit protocol. ICU protocol for hyperglycemia. HEME: * Hgb up to 10.7. patient was transfused 2 units while in operating room. Transfuse if hgb <7. etiology likely surgery related blood loss. continue to trend H+H ID: * currently on Day 6 of zosyn for choledocholithiasis * WBC normal on admission, elevated to 21 in post-op period. - blood cultures from 06/16 showing no growth to date; will repeat cultures today. * Nasal MRSA swab negative. LINES/IV ACCESS: * A line * PIV x2 * Mendoza * NG tube * JAZLYN drain CODE STATUS: full DVT PROPHYLAXIS: heparin 5,000 units, SQ, q12 Thank you for allowing us to participate in the care of this patient. Please refer to my attending physician's documentation for any further recommendations. Admission and Anticipated Discharge Date Admission Date: June 16, 2019 Supervising Physician Co-Signing Physician Notes Dr. Khan was resident physician during care of patient. I separately evaluated patient for maloney portions of the history and the exam. I was present during the critical portion of medical decision making, and I discussed the case with the resident. I generally agree with the findings and plan. Patient was extubated this morning, following commands, eventually we were able to wean off the phenylephrine for vasoactive support. We are encouraging early ambulation and mobilization. Decreasing fluids as anticipate the patient will continue to third space. Patient was discussed on multidisciplinary rounds. Continuing antibiotic coverage, holding anticoagulation. Mendoza catheter management per urology. Subjective Patient in ICU. Reports some abdominal discomfort. Review of Systems Gastrointestinal: + abdominal pain Physical Exam Constitutional: WD/WN, vitals as above Eyes: + anicteric sclerae ENMT: external ear and nose normal, oropharynx normal Neck: trachea midline and + tracheal deviation Respiratory: normal respiratory effort, lungs clear to auscultation Auscultation: no crackles, no rales, no rhonchi, no wheezes and no pleural rub Cardiovascular: Rate/Rhythm: regular rate and + irregularly irregular Heart Sounds: normal S1 and normal S2 Extremities: + pedal edema (minimal) Gastrointestinal (Abdomen): Inspection/Auscultation: + abdomen distended, + abdominal surgical incision, + abdominal surgical drain present and + Kehr's sign positive (white bandage in place over laparotmy incision. clean dry and intact. ) Skin: no rashes, warm and dry Psychiatric: A+Ox3, euthymic affect Genitourinary: Mendoza catheter in place draining pale yellow colored urine without visible clots Results & Data ([facility]) Vital Signs (Past 12 Hours) Vital Signs Temp Pulse Pulse Resp BP BP BP 06/21/19 05:19 87 18 06/21/19 05:00 90 16 96/58 L 06/21/19 04:00 37.8 C H 83 16 111/68 06/21/19 03:00 92 H 16 92/48 L 06/21/19 02:30 98 H 16 06/21/19 02:00 96 H 16 100/51 L 06/21/19 01:00 103 H 105/53 L 06/21/19 00:45 98 H 93/56 L 06/21/19 00:30 96 H 92/57 L 06/21/19 00:15 105 H 93/48 L 06/21/19 00:00 94 H 21 06/20/19 23:52 101 H 91/56 L 06/20/19 23:45 107 H 06/20/19 23:30 104 H 119/58 L 06/20/19 23:00 36.5 C 92 H 16 106/63 06/20/19 22:34 93 H 102/64 06/20/19 22:30 96 H 06/20/19 22:15 84 06/20/19 22:08 92 H 107/72 06/20/19 22:02 97 H 17 06/20/19 22:00 88 06/20/19 21:54 90 58/42 L 06/20/19 21:47 87 80/42 L 06/20/19 21:44 84 51/39 L 06/20/19 21:42 89 60/37 L 06/20/19 21:40 95 H 70/42 L 06/20/19 21:39 100 H 64/52 L 06/20/19 21:34 86 73/40 L 06/20/19 21:30 96 H 06/20/19 21:15 93 H 06/20/19 21:00 115 H 06/20/19 20:59 114 H 94/54 L 06/20/19 20:54 105 H 118/65 06/20/19 20:50 124 H 147/95 H 06/20/19 20:45 149 H 06/20/19 20:43 151 H 124/86 06/20/19 20:39 144 H 114/88 06/20/19 20:34 126 H 100/75 06/20/19 20:30 139 H 06/20/19 20:25 127 H 06/20/19 20:20 35.4 C L 120 H 127/101 H 06/20/19 20:14 35.3 C L 109 H 17 146/110 H 06/20/19 20:08 35.3 C L 82 16 141/71 H 06/20/19 20:04 35.3 C L 88 16 144/102 H 06/20/19 19:52 80 16 122/74 06/20/19 18:30 36.5 C 79 98 H 15 93/48 L 99/50 L 06/20/19 18:20 36.3 C L 90 20 92/54 L 06/20/19 18:10 82 20 91/53 L Pulse Ox 06/21/19 05:19 100 06/21/19 05:00 100 06/21/19 04:00 100 06/21/19 03:00 100 06/21/19 02:30 100 06/21/19 02:00 100 06/21/19 01:00 99 06/21/19 00:45 100 06/21/19 00:30 99 06/21/19 00:15 99 06/21/19 00:00 99 06/20/19 23:52 99 06/20/19 23:45 99 06/20/19 23:30 100 06/20/19 23:00 100 06/20/19 22:34 100 06/20/19 22:30 100 02/25/20 22:15 100 06/20/19 22:08 100 06/20/19 22:02 100 06/20/19 22:00 100 06/20/19 21:54 100 06/20/19 21:47 100 06/20/19 21:44 100 06/20/19 21:42 100 06/20/19 21:40 100 06/20/19 21:39 100 06/20/19 21:34 100 06/20/19 21:30 100 06/20/19 21:15 100 06/20/19 21:00 100 06/20/19 20:59 100 06/20/19 20:54 100 06/20/19 20:50 100 06/20/19 20:45 97 06/20/19 20:43 95 06/20/19 20:39 06/20/19 20:34 100 06/20/19 20:30 97 06/20/19 20:25 100 06/20/19 20:20 99 06/20/19 20:14 100 06/20/19 20:08 100 06/20/19 20:04 100 06/20/19 19:52 06/20/19 18:30 100 06/20/19 18:20 100 06/20/19 18:10 100 Critical Care Time Critical Care Time: Yes Total Critical Care Time: 40 I have personally spent 40 minutes of critical care time in the direct management of this patient. This is a life/limb threatening event. This includes time spent evaluating patient, direct bedside care, chart review, placing orders, interpretation of diagnostic studies, discussion with consultants, patient, and/or family members regarding treatment decisions, as well as other required patient management activities. This time is exclusive of all separately billable procedures, and teaching time and separate from and in addition to any other critical care service time. Resident Activity Tracking Resident Involvement: Resident Care Provided Care Provided: Adult [facility] Medicine
--- NOTE | 2019-06-21 06:22 | Surgery Progress Note ---
Date of Service June 21, 2019 Assessment & Plan (1) Postoperative haemorrhage: no evidence of ongoing hemorrhage awake on vent- urine output marginal- creat not signif elevated from adm hypotension with fentanyl- on some Alexander H/H stable postop probably needs additional fluid, delicate balance with pulm status trying albumin- hopefully can extubate today cont atbx- had stone, purulent fluid w/n CBD Results & Data Vital Signs (Past 12 Hours) Vital Signs Temp Pulse Pulse Resp BP BP BP 06/21/19 06:00 87 16 101/53 L 06/21/19 05:19 87 18 06/21/19 05:00 90 16 96/58 L 06/21/19 04:00 37.8 C H 83 16 111/68 06/21/19 03:00 92 H 16 92/48 L 06/21/19 02:30 98 H 16 06/21/19 02:00 96 H 16 100/51 L 06/21/19 01:00 103 H 105/53 L 06/21/19 00:45 98 H 93/56 L 06/21/19 00:30 96 H 92/57 L 06/21/19 00:15 105 H 93/48 L 06/21/19 00:00 94 H 21 06/20/19 23:52 101 H 91/56 L 06/20/19 23:45 107 H 06/20/19 23:30 104 H 119/58 L 06/20/19 23:00 36.5 C 92 H 16 106/63 06/20/19 22:34 93 H 102/64 06/20/19 22:30 96 H 06/20/19 22:15 84 06/20/19 22:08 92 H 107/72 06/20/19 22:02 97 H 17 06/20/19 22:00 88 06/20/19 21:54 90 58/42 L 06/20/19 21:47 87 80/42 L 06/20/19 21:44 84 51/39 L 06/20/19 21:42 89 60/37 L 06/20/19 21:40 95 H 70/42 L 06/20/19 21:39 100 H 64/52 L 06/20/19 21:34 86 73/40 L 06/20/19 21:30 96 H 06/20/19 21:15 93 H 06/20/19 21:00 115 H 06/20/19 20:59 114 H 94/54 L 06/20/19 20:54 105 H 118/65 06/20/19 20:50 124 H 147/95 H 06/20/19 20:45 149 H 06/20/19 20:43 151 H 124/86 06/20/19 20:39 144 H 114/88 06/20/19 20:34 126 H 100/75 06/20/19 20:30 139 H 06/20/19 20:25 127 H 06/20/19 20:20 35.4 C L 120 H 127/101 H 06/20/19 20:14 35.3 C L 109 H 17 146/110 H 06/20/19 20:08 35.3 C L 82 16 141/71 H 06/20/19 20:04 35.3 C L 88 16 144/102 H 06/20/19 19:52 80 16 122/74 06/20/19 18:30 36.5 C 79 98 H 15 93/48 L 99/50 L 06/20/19 18:20 36.3 C L 90 20 92/54 L Pulse Ox 06/21/19 06:00 100 06/21/19 05:19 100 06/21/19 05:00 100 06/21/19 04:00 100 06/21/19 03:00 100 06/21/19 02:30 100 06/21/19 02:00 100 06/21/19 01:00 99 06/21/19 00:45 100 06/21/19 00:30 99 06/21/19 00:15 99 06/21/19 00:00 99 06/20/19 23:52 99 06/20/19 23:45 99 06/20/19 23:30 100 06/20/19 23:00 100 06/20/19 22:34 100 06/20/19 22:30 100 06/20/19 22:15 100 06/20/19 22:08 100 06/20/19 22:02 100 06/20/19 22:00 100 06/20/19 21:54 100 06/20/19 21:47 100 06/20/19 21:44 100 06/20/19 21:42 100 06/20/19 21:40 100 06/20/19 21:39 100 06/20/19 21:34 100 06/20/19 21:30 100 06/20/19 21:15 100 06/20/19 21:00 100 06/20/19 20:59 100 06/20/19 20:54 100 06/20/19 20:50 100 06/20/19 20:45 97 06/20/19 20:43 95 06/20/19 20:39 06/20/19 20:34 100 06/20/19 20:30 97 06/20/19 20:25 100 06/20/19 20:20 99 06/20/19 20:14 100 06/20/19 20:08 100 06/20/19 20:04 100 06/20/19 19:52 06/20/19 18:30 100 06/20/19 18:20 100 PG Care Time/CCT Total # of Minutes Spent Total Time Spent with Patient: Total time spent is greater than 50% in coordination of care (as documented) at patient's floor/unit and/or counseling patient: Coding Level of Care Code None Diagnoses Postoperative haemorrhage
[2019-06-21] MEDS: SODIUM CHLORIDE 0.9% 1000ML 1,000 ML IV SCH (06:37)
[2019-06-21 06:40] LABS: Base Excess ABG -1.2 mEq/L (-9-1.8); HCO3 ABG 21 mmol/L (19-24); PCO2 ABG 28 mmHg (35-46); PO2 ABG 94 mmHg (80-95)
[2019-06-21 06:41] LABS: Allen Test Pos (Pos)
--- NOTE | 2019-06-21 07:22 | XRay Report ---
XR chest 1V portable HISTORY: Shortness of breath. COMPARISON: Chest 06/20/2019. FINDINGS: The endotracheal tube terminates 3 mm from the uriel. Nasogastric tube terminates below th e diaphragm. The tip is not included on the image. No pneumothorax. Small to moderate bilateral pleur al effusions and bibasilar densities persist. The heart remains enlarged. There is mild central pulmo nary vascular congestion without overt edema. Left-sided dual-chamber pacemaker. A 1.6 cm right upper lobe nodule is again noted. This is consistent with the patient's known malignancy. IMPRESSION: 1. The endotracheal tube terminates 3 mm from the uriel. This should be pulled back by approximately 2 cm. 2. Small moderate bilateral pleural effusions and mild congestive change persist. 3. Redemonstration of the patient's known 1.6 cm right upper lobe lesion. 4. Findings discussed with Dr. Ontiveros at 7:21 AM on 06/21/2019. ACT 112: Negative or not required by law. Electronically signed by: Saúl Abdalla M.D. 06/21/2019 7:21 AM
[2019-06-21] MEDS: FAMOTIDINE 20 MG in SYRINGE 3 ML IV SCH (08:53)
[2019-06-21] MEDS: HEPARIN SOD 5,000 UNIT/0.5 ML VIAL SQ SCH ×3 (08:53→21:26)
[2019-06-21] MEDS: PHENYLEPHRINE HCL 20 MG in DEXTROSE 5% 500 ML IV SCH (08:53)
--- NOTE | 2019-06-21 09:37 | Urology Consultation ---
Date of Consultation June 21, 2019 Assessment & Plan (1) Acute urinary retention: Patient was an interoperative consult for catheter placement with exploratory laparoscopy/laparotomy for acute blood loss anemia after procedure. Patient is currently stable with multiple drains and had tolerated the procedure. A 18 [place] catheter was placed after urethral dilation by myself. Assumed consent secondary to urgent need for catheter placement. Timeout had been completed for the emergency laparoscopy. Patient tolerated the procedure well. Was then aroused from anesthesia having tolerated the procedures well without major complications or issues. (2) Urethral stricture: See above History of Present Illness Attending Physician: Jose Cuevas MD History of Present Illness Patient emergently taken to the OR for an acute bleed urology was consulted due to difficulty with catheter. At time of assessment patient was actively undergoing exploratory laparotomy/laparoscopy to assess for bleeding. After the procedure well patient was still intubated a catheter was attempted be placed by myself. Patient had significant urethral stricture which hindered placement of catheter. An 18 [place] silicone catheter was able be placed by myself with return of clear yellow urine without blood. Patient from records has a history of difficulty with urination and lower urinary tract symptoms. Had a issue during childbirth many years ago and has since had problems. Had previously had trouble with catheters. Patient is intubated and under anesthetic so all history was gathered from records and from the general surgeon who consulted intraoperatively. Allergies Allergy/AdvReac Type Severity Reaction Status Date / Time lisinopril Allergy Intermediate RASH Verified 06/16/19 11:45 zolpidem AdvReac Severe hallucinati Verified 06/16/19 11:45 ons Home Medications Home Medications Medication Instructions Recorded Confirmed Type lorazepam 0.5 mg PO HS PRN 04/21/18 06/16/19 History metoprolol tartrate 100 mg PO BID 04/21/18 06/16/19 History pantoprazole 40 mg PO DAILY 04/21/18 06/16/19 History folic acid 1 mg PO DAILY 04/28/18 06/16/19 History nitroglycerin 0.4 mg SUBLINGUAL UD PRN 04/28/18 06/16/19 History Eliquis 2.5 mg PO BID 07/10/18 06/16/19 History aspirin [Aspirin Low Dose] 81 mg PO QAM 07/10/18 06/16/19 History diltiazem HCl 360 mg PO DAILY 07/10/18 06/16/19 History ondansetron HCl [Zofran] 8 mg PO TID PRN 07/10/18 06/16/19 History furosemide 40 mg tablet 40 mg PO BID #30 tab 12/20/18 06/16/19 History iron,carbonyl 65 mg-vitamin C 125 1 tab PO DAILY 12/21/18 06/16/19 History mg tablet,delayed release magnesium oxide 400 mg PO DAILY cap 12/21/18 06/16/19 History nystatin 100,000 unit/gram topical 1 appln TOP BID 12/21/18 06/16/19 History powder trazodone 50 mg tablet 50 mg PO HS 12/21/18 06/16/19 History albuterol sulfate [Ventolin HFA] 2 puff INHALATION QID PRN 12/30/18 06/16/19 History triamcinolone acetonide 0.1 % 1 appln TOP BID 03/28/19 06/16/19 History topical cream megestrol 400 mg/10 mL (40 mg/mL) 200 mg PO BID #240 ml 04/03/19 06/16/19 Rx oral suspension budesonide-formoterol HFA 160 2 puff INHALATION Q12H #10.2 gm 05/11/19 06/16/19 Rx mcg-4.5 mcg/actuation aerosol inhaler docusate sodium 100 mg PO BID 06/16/19 06/16/19 History polyethylene glycol 3350 [Miralax] 17 g PO QAM 06/16/19 06/16/19 History prochlorperazine maleate 10 mg PO Q6H PRN 06/16/19 06/16/19 History [Compazine] Patient History Medical History A-fib (Inactive) Ok to continue Eliquis and restart all AVN blockers Acute on chronic renal failure Anemia CAD (coronary artery disease) (Inactive) Cancer LUNG CANCER S/P RECENT CHEMO (COMPLETED 04/01/18) Chronic obstructive pulmonary disease Diabetes mellitus, type II (Inactive) GERD (gastroesophageal reflux disease) Hiatal hernia Hyperlipidemia Hypertension Myocardial Infarction 1992= MEDICAL MANAGEMENT Osteoarthritis Osteoporosis PNA (pneumonia) (Inactive) Recurrent pleural effusion on right Tachy-rex syndrome s/p permanent pacemaker Volume overload (Inactive) Surgical History History of adenoidectomy History of appendectomy History of arthroscopy RIGHT KNEE History of cardiac cath 1992= NO STENTS History of cataract surgery BILATERAL History of section X4 History of colonoscopy History of hysterectomy JOSE WITH BSO History of lung surgery NAVIGATIONAL BRONCH/EBUS= 11/09/17= GRADE I VIEW, MAC 3, ETT 8.0 AT [facility] History of tonsillectomy History of tooth extraction Family History Grandfather (Paternal) Family hx of colon cancer Social History Preferred Language: Kiswahili Communication Ability: Effective Visual Impairment: No Limitations Obiee Architect Required: No Beliefs That Will Affect Care: None marital status: Current Living Situation: Family Current Living Situation Comment: pt also has a caregiver come to her home Other Information That Helps Us Care for You: No Feels Safe at Home: Yes Safety Concerns: Feels Safe At This Time Smoking Status: Never smoker Cigarettes Per Day: 10 ; Do You Dip or Chew Tobacco: No ; Second Hand Exposure: No ; Hx Alcohol Use: No Hx Substance Use: No Review of Systems Review of Systems: Unobtainable due to endotracheal tube and Unobtainable due to reduced consciousness Physical Exam Physical Exam: General: Patient intubated and sedated undergoing procedure. Acute illness from acute blood loss anemia. Advanced age. Chronic Medical issues. HEENT: Normocephalic. Inspection normal. Intubated.Normal inspection of face. Normal inspection of neck. Psychologic:Sedated Respiratory: Intubated and controlled by anesthesia. Cardiovascular: No tachycardia Skin: [place] and Dry. No rashes or visible lesions. Extremities/Lymphatics: Mild edema. Abdomen: Moderately distended status post exploratory laparoscopy with multiple drain placements. : Severe stricture of urethra dilated and catheter placed. Catheter was geri kayce using sterile technique. The urethra was dilated and an 18 [place] silicone catheter was placed with good return of clear yellow urine without major bleeding or other issues. Moderate atrophic vaginitis. Results & Data Vital Signs (Past 12 Hours) Vital Signs Temp Pulse Pulse Resp BP BP Pulse Ox 06/21/19 09:20 89 19 114/54 L 97 06/21/19 08:50 94 H 15 100/44 L 98 06/21/19 08:20 88 15 88/47 L 98 06/21/19 07:50 96 H 15 101/53 L 98 06/21/19 07:09 86 27 H 98 06/21/19 07:06 27 H 06/21/19 07:00 117 H 97 06/21/19 06:00 87 16 101/53 L 100 06/21/19 05:19 87 18 100 06/21/19 05:00 90 16 96/58 L 100 06/21/19 04:00 37.8 C H 83 16 111/68 100 06/21/19 03:00 92 H 16 92/48 L 100 06/21/19 02:30 98 H 16 100 06/21/19 02:00 96 H 16 100/51 L 100 06/21/19 01:00 103 H 105/53 L 99 06/21/19 00:45 98 H 93/56 L 100 06/21/19 00:30 96 H 92/57 L 99 06/21/19 00:15 105 H 93/48 L 99 06/21/19 00:00 94 H 21 99 06/20/19 23:52 101 H 91/56 L 99 06/20/19 23:45 107 H 99 06/20/19 23:30 104 H 119/58 L 100 06/20/19 23:00 36.5 C 92 H 16 106/63 100 06/20/19 22:34 93 H 102/64 100 06/20/19 22:30 96 H 100 06/20/19 22:15 84 100 06/20/19 22:08 92 H 107/72 100 06/20/19 22:02 97 H 17 100 06/20/19 22:00 88 100 06/20/19 21:54 90 58/42 L 100 06/20/19 21:47 87 80/42 L 100 06/20/19 21:44 84 51/39 L 100 06/20/19 21:42 89 60/37 L 100 06/20/19 21:40 95 H 70/42 L 100 06/20/19 21:39 100 H 64/52 L 100 06/20/19 21:34 86 73/40 L 100 06/20/19 21:30 96 H 100 PG Care Time/CCT Total # of Minutes Spent Total Time Spent with Patient: Total time spent is greater than 50% in coordination of care (as documented) at patient's floor/unit and/or counseling patient: Coding Level of Care Code 12155 Initial Inpt Care Lvl 3 Diagnoses Acute urinary retention R33.8 Urethral stricture N35.919
[2019-06-21] MEDS: DOCUSATE SODIUM 100 MG CAP PO SCH ×2 (10:49→23:26)
[2019-06-21] MEDS: PANTOprazole 40 MG TAB PO SCH (10:49)
[2019-06-21] MEDS: METOPROLOL TARTRATE 100 MG TAB PO SCH ×2 (10:49→21:26)
[2019-06-21] MEDS: dilTIAZem HCL 180 MG CAPCR PO SCH (10:49)
[2019-06-21] MEDS: NORMOSOL-R 1,000 ML IV SCH ×2 (11:02→23:36)
[2019-06-21] MEDS: HYDROmorphone INJ 0.5 MG/0.5 ML SYR IV PRN ×2 (11:06→14:19)
[2019-06-21] MEDS: FLUTICASONE/VILANTEROL 100/25MCG 14 PUFFS/INHALER INH SCH (11:58)
--- NOTE | 2019-06-21 12:02 | Gastroenterology Progress Note ---
Date of Service June 21, 2019 Assessment & Plan (1) Elevated LFTs: (2) Common bile duct obstruction: (3) Cholecystitis: Pt is a 79 y/o female admitted with elevated LFTs & lipase, noted to have CBD dilation, gallbladder wall thickening concerning for cholecystitis and choledocholithiasis, gallstone pancreatitis She is currently POD 1 s/p EGD/EUS/ERCP - choledocholithiasis and pus found, stone removed, biliary sphincterectomy performed, biliary and pancreatic stents placed. Pt had lap cholecystectomy following ERCP, afterwards while recovering in PACU, noted to be hypotensive w minimal JAZLYN drainage. She was taken back to OR by Dr. Charlton for suspected intrabdominal bleeding. Cystic artery bleeding noted, sutured, clipped. She was transferred then to ICU, mechanically vented. She overnight received 2U PRBC Transfusion, H/H stable. She was just extubated this morning. - Continue antibx IV coverage; recommending completing 10 days course of antibx given likely cholangitis. - Avoid NSAIDs and ASA 5 days after biliary sphincterectomy - Hold anticoagulation x 2 more days - CL diet ok from our standpoint - Trend LFTs; lipase has normalized - Appreciate Surgery and ICU team following Attg add: I interviewed examined pt, reviewed chart and labs. Pt with improved labs, no complaints. Exam shows persistent bleeding in JAZLYN drain. No further recs from our service; please call if needed. Admission and Anticipated Discharge Date Admission Date: June 16, 2019 Subjective Pt POD 1 s/p EGD/EUS/ERCP - choledocholithiasis and pus found, stone removed, biliary sphincterectomy performed, biliary and pancreatic stents placed. Pt had lap cholecystectomy following ERCP, afterwards while recovering in PACU, noted to be hypotensive w minimal JAZLYN drainage. She was taken back to OR by Dr. Charlton for suspected intrabdominal bleeding. Cystic artery bleeding noted, sutured, clipped. She was transferred then to ICU, mechanically vented. She overnight received 2U PRBC Transfusion, H/H stable. She was just extubated this morning. She is currently lethargic but managed to answer questions appropriately. She denies CP, increased SOB, + mild abd pain, no n/v. Review of Systems Review of Systems: All systems reviewed & are unremarkable except as noted in HPI & below Physical Exam Constitutional: + frail appearing, well groomed, cooperative and comfortable Eyes: PERRL, conjunctivae normal, anicteric sclerae ENMT: external ear and nose normal, oropharynx normal Respiratory: no respiratory distress and does not use accessory muscles Auscultation: + diminished lung sounds Cardiovascular: RRR, no murmur, no edema Gastrointestinal (Abdomen): Inspection/Auscultation: + hypoactive bowel sounds Percussion/Palpation: + abdomen tender (diffuse) and abdomen soft JAZLYN drain to R side of abd w sangenous discharge. Surgical dressing on R abd CDI Skin: no rashes, warm and dry no jaundice Psychiatric: Awake, lethargic (extubated earlier), answering questions appropriately Lymphatic: no lymphedema Results & Data ([facility]) Vital Signs (Past 12 Hours) Vital Signs Temp Pulse Pulse Resp BP BP Pulse Ox 06/21/19 09:20 89 19 114/54 L 97 06/21/19 08:50 94 H 15 100/44 L 98 06/21/19 08:20 88 15 88/47 L 98 06/21/19 07:50 96 H 15 101/53 L 98 06/21/19 07:09 86 27 H 98 06/21/19 07:06 27 H 06/21/19 07:00 117 H 97 06/21/19 06:00 87 16 101/53 L 100 06/21/19 05:19 87 18 100 06/21/19 05:00 90 16 96/58 L 100 06/21/19 04:00 37.8 C H 83 16 111/68 100 06/21/19 03:00 92 H 16 92/48 L 100 06/21/19 02:30 98 H 16 100 06/21/19 02:00 96 H 16 100/51 L 100 06/21/19 01:00 103 H 105/53 L 99 06/21/19 00:45 98 H 93/56 L 100 06/21/19 00:30 96 H 92/57 L 99 06/21/19 00:15 105 H 93/48 L 99
--- NOTE | 2019-06-21 12:55 | Cardiology Progress Note ---
Date of Service June 21, 2019 Assessment & Plan (1) Acute cholecystitis: Patient status post cholecystectomy and procedures as noted above. Transiently hypotensive this morning on Alexander-Synephrine. Heart rates are trending higher in chronic atrial fibrillation. Would recommend resuming beta-don as soon as able. Would begin with IV metoprolol 5 mg IV every 4 hours until able to take p.o. Expect patient may require higher dosing given substantial dose at home as well as combination with diltiazem. (2) Chronic kidney disease (CKD): Renal function appears stable. (3) Tachy-rex syndrome: Normally functioning pacemaker in place with atrial fibrillation rates mildly elevated as per in past in part secondary to acute complaints and lapse in medications Pacemaker currently not being used due to elevated heart rate and demand device Pacer lead interrogation last 03/15/2019 with normal function and excellent battery life (4) Chronic atrial fibrillation: (5) Recurrent pleural effusion on right: Patient is received 2 doses of IV furosemide. Past effusions have been managed with repeat thoracenteses Currently compensated without complaint We will continue to follow clinically for now Subjective Patient seen and examined, chart, medications, telemetry reviewed. Past evenings results noted.underwent ERCP and cholecystectomy reoperation for cystic artery bleeding. Patient now extubated though with NG tube in place. Relatively tachycardic but has not received diltiazem or metoprolol No chest pains or shortness of breath. Physical Exam Constitutional: + thin; no acute distress Eyes: PERRL, conjunctivae normal, anicteric sclerae ENMT: external ear and nose normal, oropharynx normal NG in place Neck: trachea midline, no thyromegaly Respiratory: Auscultation: + diminished lung sounds (Right base only) Cardiovascular: Rate/Rhythm: + tachycardic and + irregularly irregular Heart Sounds: normal S1 and normal S2 Extremities: + edema (Trace ) Chest (Breasts): Chest: + pacemaker Gastrointestinal (Abdomen): Percussion/Palpation: abdomen soft; abdomen nontender Neurologic: PERRL, EOMI, accommodation nl, no face palsy, no dysarthria Psychiatric: A+Ox3, euthymic affect Results & Data Vital Signs (Past 12 Hours) Vital Signs Temp Pulse Pulse Resp BP BP Pulse Ox 06/21/19 11:50 127 H 22 98/64 L 93 06/21/19 11:21 117 H 19 117/76 96 06/21/19 10:50 91 H 16 107/63 99 06/21/19 10:20 93 H 13 119/58 L 95 06/21/19 09:50 91 H 13 112/56 L 98 06/21/19 09:45 89 13 96 06/21/19 09:30 87 15 98 06/21/19 09:21 94 H 10 L 98 06/21/19 09:20 89 19 114/54 L 97 06/21/19 08:50 94 H 15 100/44 L 98 06/21/19 08:20 88 15 88/47 L 98 06/21/19 07:50 96 H 15 101/53 L 98 06/21/19 07:09 86 27 H 98 06/21/19 07:06 27 H 06/21/19 07:00 117 H 97 06/21/19 06:00 87 16 101/53 L 100 06/21/19 05:19 87 18 100 06/21/19 05:00 90 16 96/58 L 100 06/21/19 04:00 37.8 C H 83 16 111/68 100 06/21/19 03:00 92 H 16 92/48 L 100 06/21/19 02:30 98 H 16 100 06/21/19 02:00 96 H 16 100/51 L 100 06/21/19 01:00 103 H 105/53 L 99 Laboratory Results Laboratory Results - last 24 hr 06/20/19 06/20/19 06/20/19 13:31 16:09 17:29 WBC RBC Hgb POC Hgb Hct POC Hct MCV MCH MCHC RDW Std Deviation RDW Coeff of Ilya Plt Count MPV Immature Gran % (Auto) Neut % (Auto) Lymph % (Auto) Mayes % (Auto) Eos % (Auto) Baso % (Auto) Immature Gran # (Auto) Neut # (Auto) Lymph # (Auto) Mayes # (Auto) Eos # (Auto) Baso # (Auto) Echinocytes PT INR APTT PTT Ratio Sample Site POC pH POC pCO2 POC pO2 POC HCO3 POC Total CO2 POC Base Excess ABG pH ABG pH (Temp Correct) ABG pCO2 ABG pCO2 (Temp Corrct ABG pO2 POC ABG pO2 at Pt Temp ABG HCO3 ABG O2 Saturation ABG Base Excess Abilio Test Barometric Pressure Oxygen Given O2 Delivery Device POC O2 Rate Minute Ventilation POC FiO2 Tidal Volume PEEP POC Sodium Sodium POC Potassium Potassium Chloride Carbon Dioxide Anion Gap BUN Creatinine Est Cr Clr Drug Dosing Est GFR ( Amer) Est GFR (Non-Af Amer) BUN/Creatinine Ratio Glucose POC Glucose 89 104 H 201 H POC Glucose (other) Lactate Calcium Ionized Calcium Phosphorus Magnesium Total Bilirubin Direct Bilirubin AST ALT Alkaline Phosphatase Total Protein Albumin Globulin Albumin/Globulin Ratio Lipase Procalcitonin Random Cortisol Nasal Screen MRSA (PCR) Blood Type Antibody Screen Crossmatch 06/20/19 06/20/19 06/20/19 17:34 17:34 17:51 WBC RBC Hgb 7.9 L POC Hgb Hct 23.9 L POC Hct MCV MCH MCHC RDW Std Deviation RDW Coeff of Ilya Plt Count MPV Immature Gran % (Auto) Neut % (Auto) Lymph % (Auto) Mayes % (Auto) Eos % (Auto) Baso % (Auto) Immature Gran # (Auto) Neut # (Auto) Lymph # (Auto) Mayes # (Auto) Eos # (Auto) Baso # (Auto) Echinocytes PT INR APTT PTT Ratio Sample Site POC pH POC pCO2 POC pO2 POC HCO3 POC Total CO2 POC Base Excess ABG pH ABG pH (Temp Correct) ABG pCO2 ABG pCO2 (Temp Corrct ABG pO2 POC ABG pO2 at Pt Temp ABG HCO3 ABG O2 Saturation ABG Base Excess Abilio Test Barometric Pressure Oxygen Given O2 Delivery Device POC O2 Rate Minute Ventilation POC FiO2 Tidal Volume PEEP POC Sodium Sodium 141 POC Potassium Potassium 3.8 Chloride 110 H Carbon Dioxide 25 Anion Gap 6.0 BUN 16 Creatinine 1.56 H Est Cr Clr Drug Dosing 19.6 Est GFR ( Amer) 36.0 Est GFR (Non-Af Amer) 31.1 BUN/Creatinine Ratio 10.1 Glucose 166 H POC Glucose POC Glucose (other) Lactate Calcium 8.2 L Ionized Calcium Phosphorus Magnesium Total Bilirubin Direct Bilirubin AST ALT Alkaline Phosphatase Total Protein Albumin Globulin Albumin/Globulin Ratio Lipase Procalcitonin Random Cortisol Nasal Screen MRSA (PCR) Blood Type A Positive Antibody Screen NEGATIVE Crossmatch See Detail 06/20/19 06/20/19 06/20/19 17:51 17:55 20:05 WBC RBC Hgb POC Hgb Hct POC Hct MCV MCH MCHC RDW Std Deviation RDW Coeff of Ilya Plt Count MPV Immature Gran % (Auto) Neut % (Auto) Lymph % (Auto) Mayes % (Auto) Eos % (Auto) Baso % (Auto) Immature Gran # (Auto) Neut # (Auto) Lymph # (Auto) Mayes # (Auto) Eos # (Auto) Baso # (Auto) Echinocytes PT 11.5 INR 1.1 APTT 21.1 PTT Ratio 0.8 Sample Site POC pH POC pCO2 POC pO2 POC HCO3 POC Total CO2 POC Base Excess ABG pH ABG pH (Temp Correct) ABG pCO2 ABG pCO2 (Temp Corrct ABG pO2 POC ABG pO2 at Pt Temp ABG HCO3 ABG O2 Saturation ABG Base Excess Abilio Test Barometric Pressure Oxygen Given O2 Delivery Device POC O2 Rate Minute Ventilation POC FiO2 Tidal Volume PEEP POC Sodium Sodium POC Potassium Potassium Chloride Carbon Dioxide Anion Gap BUN Creatinine Est Cr Clr Drug Dosing Est GFR ( Amer) Est GFR (Non-Af Amer) BUN/Creatinine Ratio Glucose POC Glucose POC Glucose (other) Lactate Calcium Ionized Calcium 1.18 Phosphorus Magnesium Total Bilirubin Direct Bilirubin AST ALT Alkaline Phosphatase Total Protein Albumin Globulin Albumin/Globulin Ratio Lipase Procalcitonin Random Cortisol Nasal Screen MRSA (PCR) Negative Blood Type Antibody Screen Crossmatch 06/20/19 06/20/19 06/20/19 20:08 20:08 20:08 WBC RBC Hgb POC Hgb Hct POC Hct MCV MCH MCHC RDW Std Deviation RDW Coeff of Ilya Plt Count MPV Immature Gran % (Auto) Neut % (Auto) Lymph % (Auto) Mayes % (Auto) Eos % (Auto) Baso % (Auto) Immature Gran # (Auto) Neut # (Auto) Lymph # (Auto) Mayes # (Auto) Eos # (Auto) Baso # (Auto) Echinocytes PT INR APTT PTT Ratio Sample Site POC pH POC pCO2 POC pO2 POC HCO3 POC Total CO2 POC Base Excess ABG pH ABG pH (Temp Correct) ABG pCO2 ABG pCO2 (Temp Corrct ABG pO2 POC ABG pO2 at Pt Temp ABG HCO3 ABG O2 Saturation ABG Base Excess Abilio Test Barometric Pressure Oxygen Given O2 Delivery Device POC O2 Rate Minute Ventilation POC FiO2 Tidal Volume PEEP POC Sodium Sodium 143 POC Potassium Potassium 4.2 Chloride 112 H Carbon Dioxide 23 Anion Gap 8.0 BUN 16 Creatinine 1.49 H Est Cr Clr Drug Dosing 20.5 Est GFR ( Amer) 38.1 Est GFR (Non-Af Amer) 32.8 BUN/Creatinine Ratio 10.7 Glucose 173 H POC Glucose POC Glucose (other) Lactate Calcium 8.8 Ionized Calcium Phosphorus 4.5 Magnesium 1.6 L Total Bilirubin 0.9 Direct Bilirubin 0.4 H AST 201 H ALT 88 H Alkaline Phosphatase 162 H Total Protein 4.6 L D Albumin 1.8 L Globulin Albumin/Globulin Ratio Lipase 688 H Procalcitonin 0.10 Random Cortisol 33.12 Nasal Screen MRSA (PCR) Blood Type Antibody Screen Crossmatch 06/20/19 06/20/19 06/20/19 20:14 20:16 20:32 WBC RBC Hgb POC Hgb 9.9 L Hct POC Hct 29 L MCV MCH MCHC RDW Std Deviation RDW Coeff of Ilya Plt Count MPV Immature Gran % (Auto) Neut % (Auto) Lymph % (Auto) Mayes % (Auto) Eos % (Auto) Baso % (Auto) Immature Gran # (Auto) Neut # (Auto) Lymph # (Auto) Mayes # (Auto) Eos # (Auto) Baso # (Auto) Echinocytes PT INR APTT PTT Ratio Sample Site R Radial POC pH 7.42 POC pCO2 32 L POC pO2 116 H POC HCO3 20 POC Total CO2 21 L POC Base Excess -4.0 ABG pH ABG pH (Temp Correct) 7.440 ABG pCO2 ABG pCO2 (Temp Corrct 30 L ABG pO2 POC ABG pO2 at Pt Temp 107 ABG HCO3 ABG O2 Saturation ABG Base Excess Abilio Test Pass Barometric Pressure Oxygen Given O2 Delivery Device Ventilator POC O2 Rate 16 Minute Ventilation 5.1 POC FiO2 40 Tidal Volume 350 PEEP 5 POC Sodium 140 Sodium Cancelled POC Potassium 3.8 Potassium Cancelled Chloride Cancelled Carbon Dioxide Cancelled Anion Gap Cancelled BUN Cancelled Creatinine Cancelled Est Cr Clr Drug Dosing Cancelled Est GFR ( Amer) Cancelled Est GFR (Non-Af Amer) Cancelled BUN/Creatinine Ratio Cancelled Glucose Cancelled POC Glucose 177 H POC Glucose (other) Lactate Calcium Cancelled Ionized Calcium Phosphorus Magnesium Total Bilirubin Direct Bilirubin AST ALT Alkaline Phosphatase Total Protein Albumin Globulin Albumin/Globulin Ratio Lipase Procalcitonin Random Cortisol Nasal Screen MRSA (PCR) Blood Type Antibody Screen Crossmatch 06/20/19 06/20/19 06/20/19 20:43 20:43 22:25 WBC 25.01 H D RBC 4.28 Hgb 13.3 D 10.4 L POC Hgb Hct 39.9 30.2 L POC Hct MCV 93.2 D MCH 31.1 MCHC 33.3 RDW Std Deviation 51.3 H RDW Coeff of Ilya 15.4 H Plt Count 155 MPV 9.5 Immature Gran % (Auto) 0.6 Neut % (Auto) 85.6 Lymph % (Auto) 7.0 Mayes % (Auto) 6.5 Eos % (Auto) 0.2 Baso % (Auto) 0.1 Immature Gran # (Auto) 0.16 H Neut # (Auto) 21.41 H Lymph # (Auto) 1.74 Mayes # (Auto) 1.62 H Eos # (Auto) 0.06 Baso # (Auto) 0.02 Echinocytes 2+ PT INR APTT PTT Ratio Sample Site POC pH POC pCO2 POC pO2 POC HCO3 POC Total CO2 POC Base Excess ABG pH ABG pH (Temp Correct) ABG pCO2 ABG pCO2 (Temp Corrct ABG pO2 POC ABG pO2 at Pt Temp ABG HCO3 ABG O2 Saturation ABG Base Excess Abilio Test Barometric Pressure Oxygen Given O2 Delivery Device POC O2 Rate Minute Ventilation POC FiO2 Tidal Volume PEEP POC Sodium Sodium POC Potassium Potassium Chloride Carbon Dioxide Anion Gap BUN Creatinine Est Cr Clr Drug Dosing Est GFR ( Amer) Est GFR (Non-Af Amer) BUN/Creatinine Ratio Glucose POC Glucose POC Glucose (other) Lactate 4.2 H* Calcium Ionized Calcium Phosphorus Magnesium Total Bilirubin Direct Bilirubin AST ALT Alkaline Phosphatase Total Protein Albumin Globulin Albumin/Globulin Ratio Lipase Procalcitonin Random Cortisol Nasal Screen MRSA (PCR) Blood Type Antibody Screen Crossmatch 06/21/19 06/21/19 06/21/19 02:29 02:29 02:29 WBC RBC Hgb POC Hgb Hct POC Hct MCV MCH MCHC RDW Std Deviation RDW Coeff of Ilya Plt Count MPV Immature Gran % (Auto) Neut % (Auto) Lymph % (Auto) Mayes % (Auto) Eos % (Auto) Baso % (Auto) Immature Gran # (Auto) Neut # (Auto) Lymph # (Auto) Mayes # (Auto) Eos # (Auto) Baso # (Auto) Echinocytes PT 12.2 H INR 1.2 H APTT PTT Ratio Sample Site POC pH POC pCO2 POC pO2 POC HCO3 POC Total CO2 POC Base Excess ABG pH ABG pH (Temp Correct) ABG pCO2 ABG pCO2 (Temp Corrct ABG pO2 POC ABG pO2 at Pt Temp ABG HCO3 ABG O2 Saturation ABG Base Excess Abilio Test Barometric Pressure Oxygen Given O2 Delivery Device POC O2 Rate Minute Ventilation POC FiO2 Tidal Volume PEEP POC Sodium Sodium 141 POC Potassium Potassium 3.8 Chloride 113 H Carbon Dioxide 21 Anion Gap 7.0 BUN 19 H Creatinine 1.64 H Est Cr Clr Drug Dosing 18.7 Est GFR ( Amer) 33.9 Est GFR (Non-Af Amer) 29.2 BUN/Creatinine Ratio 11.4 Glucose 174 H POC Glucose POC Glucose (other) Lactate 2.3 H* Calcium 8.2 L Ionized Calcium Phosphorus 4.7 Magnesium 1.9 Total Bilirubin 0.9 Direct Bilirubin 0.4 H AST 211 H ALT 104 H Alkaline Phosphatase 145 H Total Protein 4.2 L Albumin 1.7 L Globulin 2.5 Albumin/Globulin Ratio 0.7 L Lipase 390 Procalcitonin Random Cortisol Nasal Screen MRSA (PCR) Blood Type Antibody Screen Crossmatch 06/21/19 06/21/19 06/21/19 02:29 06:21 12:39 WBC 21.90 H RBC 3.50 L Hgb 10.7 L POC Hgb Hct 31.4 L POC Hct MCV 89.7 MCH 30.6 MCHC 34.1 RDW Std Deviation 51.7 H RDW Coeff of Ilya 16.0 H Plt Count 156 MPV 9.3 Immature Gran % (Auto) 1.0 Neut % (Auto) 80.3 Lymph % (Auto) 11.6 Mayes % (Auto) 7.1 Eos % (Auto) 0.0 Baso % (Auto) 0.0 Immature Gran # (Auto) 0.22 H Neut # (Auto) 17.55 H Lymph # (Auto) 2.55 Mayes # (Auto) 1.56 H Eos # (Auto) 0.01 Baso # (Auto) 0.01 Echinocytes PT INR APTT PTT Ratio Sample Site POC pH POC pCO2 POC pO2 POC HCO3 POC Total CO2 POC Base Excess ABG pH 7.50 H ABG pH (Temp Correct) ABG pCO2 28 L ABG pCO2 (Temp Corrct ABG pO2 94 POC ABG pO2 at Pt Temp ABG HCO3 21 ABG O2 Saturation 98.0 H ABG Base Excess -1.2 Abilio Test Pos Barometric Pressure 728.3 Oxygen Given 30% FiO2 O2 Delivery Device POC O2 Rate Minute Ventilation POC FiO2 Tidal Volume PEEP POC Sodium Sodium POC Potassium Potassium Chloride Carbon Dioxide Anion Gap BUN Creatinine Est Cr Clr Drug Dosing Est GFR ( Amer) Est GFR (Non-Af Amer) BUN/Creatinine Ratio Glucose POC Glucose POC Glucose (other) 96 Lactate Calcium Ionized Calcium Phosphorus Magnesium Total Bilirubin Direct Bilirubin AST ALT Alkaline Phosphatase Total Protein Albumin Globulin Albumin/Globulin Ratio Lipase Procalcitonin Random Cortisol Nasal Screen MRSA (PCR) Blood Type Antibody Screen Crossmatch
[2019-06-21] MEDS ORDERED: ACETAMINOPHEN 1,000 MG/100 ML VIAL IV PRN (13:37)
--- NOTE | 2019-06-21 14:35 | Billing Data ---
Date of Service June 21, 2019 Coding Level of Care Code Critical Care 1st - mins
--- NOTE | 2019-06-21 15:00 | Electrocardiogram Report ---
Test Reason : Blood Pressure : / mmHG Vent. Rate : 097 BPM Atrial Rate : 000 BPM P-R Int : 000 ms QRS Dur : 080 ms QT Int : 302 ms P-R-T Axes : 000 024 236 degrees QTc Int : 383 ms Atrial fibrillation Low voltage QRS Nonspecific T wave abnormality Abnormal ECG When compared with ECG of 16-JUN-2019 09:51, QRS duration has increased ST no longer elevated in Inferior leads Nonspecific T wave abnormality, worse in Lateral leads QT has shortened Confirmed by Salomon Pike ([id number]) on 06/21/2019 2:59:59 PM Referred By: REFERRED SELF Confirmed By:John Pike
[2019-06-21 15:15] LABS: Hematocrit (blood only) 28.8 % (37-47); Hemoglobin 9.9 g/dL (12.0-16.0)
[2019-06-21 15:32] LABS: BUN Creatinine Ratio 10.3 (10-20); Creatinine Clr Calc Pharmacy 15.5 ml/min; Est GFR (Non-African American) 23.3
[2019-06-21] MEDS: METOPROLOL TARTRATE 1 MG/ML VIAL IV STA ×2 (16:57→17:14)
--- NOTE | 2019-06-21 18:25 | Hospitalist Progress Note ---
Date of Service June 21, 2019 Assessment & Plan (1) Biliary colic: Likely acute cholecystitis vs gallstones which may have passed considering improving LFT Liver ultrasound did show mild gallbladder wall thickening, trace pericholecystic fluid and patient does have Krishna sign S/P Lap Cholecystectomy performed by Dr. Charlton S/P Endoscopic Retrograde Cholangiopancreatogram, Endoscopic Ultrasonography Upper, Esophagogastroduodenoscopy performed by Allyssa Clark MD Postoperative hemorrhage for cystic artery bleeding. Continue IV Zosyn for pain S/P extubation today Continue gentle IVF (2) Hypotension: BP improved Will continue to wean her on pressor Continue monitor BP (3) CHF exacerbation: Patient had good diuresis with IV Lasix on admission with creatinine bump Has chronic pleural effusion Lasix on hold due to Low BP and elevated creatinine at 1.9 cardiology on board (4) Adenocarcinoma, lung: Pt stated she is in remission, however, there is an increase in the spiculated RUL nodule on the CT image today which has changed from imaging done last year. Will need to be reviewed by her PCP/lung specialist outpatient (5) Tachy-rex syndrome: (6) Chronic atrial fibrillation: Metoprolol on hold since pt has been NPO HR has been fluctuated Consider to add on low dose metoprolol IV while NPO Eliquis on hold due to recent surgery Will resume Diltiazem and metoprolol once able to take oral (7) DVT prophylaxis: Eliquis on hold in preparation for surgery Continue heparin SQ for now. Full Code Admission and Anticipated Discharge Date Admission Date: June 16, 2019 Subjective Pt was seen and examined Lying in bed with no distress She was extubated this morning Denies any chest pain, palpitation and SOB Physical Exam Physical Exam: General- No acute distress Head- atraumatic Eyes- PERRL, EOMI, ENT- oropharynx clear Neck- supple, no JVD Lungs- clear to auscultation Heart- irregular rhythm; no murmur Abdomen- normal bowel sounds, soft, nontender Extremities- no calf tenderness Neuro- alert, oriented x 3; PERRL, EOMI; no facial palsy; no dysarthria Skin- warm & dry Results & Data ([facility]) Vital Signs (Past 12 Hours) Vital Signs Pulse Resp BP Pulse Ox 06/21/19 18:20 98 H 11 L 112/55 L 100 06/21/19 18:09 105 H 19 130/79 98 06/21/19 17:20 98 H 10 L 92/43 L 100 06/21/19 16:45 106 H 12 99 06/21/19 16:23 101 H 13 85/55 L 99 06/21/19 16:20 91 H 9 L 79/42 L 99 06/21/19 15:51 117 H 17 76/39 L 96 06/21/19 15:20 124 H 21 79/61 L 96 06/21/19 14:51 148 H 18 84/49 L 96 06/21/19 14:26 132 H 17 87/48 L 96 06/21/19 14:22 122 H 20 108/62 98 06/21/19 13:50 121 H 24 104/67 96 06/21/19 13:33 120 H 19 113/62 94 06/21/19 13:20 124 H 21 81/60 L 94 06/21/19 12:50 108 H 16 98/61 L 97 06/21/19 12:20 111 H 20 111/59 L 96 06/21/19 12:00 102 H 20 93 06/21/19 11:50 127 H 22 98/64 L 93 06/21/19 11:21 117 H 19 117/76 96 06/21/19 10:50 91 H 16 107/63 99 06/21/19 10:20 93 H 13 119/58 L 95 06/21/19 09:50 91 H 13 112/56 L 98 06/21/19 09:45 89 13 96 06/21/19 09:30 87 15 98 06/21/19 09:21 94 H 10 L 98 06/21/19 09:20 89 19 114/54 L 97 06/21/19 08:50 94 H 15 100/44 L 98 06/21/19 08:20 88 15 88/47 L 98 06/21/19 07:50 96 H 15 101/53 L 98 06/21/19 07:09 86 27 H 98 06/21/19 07:06 27 H 06/21/19 07:00 117 H 97 (1) CHF exacerbation Heart failure type: unspecified Qualified Code(s): I50.9 - Heart failure, unspecified
[2019-06-21] MEDS: DOCUSATE SODIUM SYRUP 100 MG/10 ML UDC PO SCH (22:01)
[2019-06-22 00:37] LABS: Hematocrit (blood only) 26.9 % (37-47); Hemoglobin 9.1 g/dL (12.0-16.0)
[2019-06-22] MEDS: PIPERACILLIN/TAZOBACTAM 3.375 GM in DEXTROSE 5% 100 ML IV SCH ×2 (01:35→13:52)
[2019-06-22 05:49] LABS: Albumin Level 1.9 gm/dl (3.4-5.0); BUN Creatinine Ratio 11.5 (10-20); Calcium 7.6 mg/dl (8.5-10.1); Creatinine Clr Calc Pharmacy 16.3 ml/min; Est GFR (African American) 28.7; Est GFR (Non-African American) 24.8; Potassium 3.6 mmol/L (3.5-5.1)
[2019-06-22 06:03] LABS: Albumin Globulin Ratio 0.8 (0.9-2); Bilirubin,Total 0.6 mg/dl (0.2-1); Globulin 2.5 gm/dl (2.5-4.0); Phosphorus 4.1 mg/dl (2.5-4.9); Total Protein 4.4 gm/dl (6.4-8.2)
[2019-06-22 06:06] LABS: Basophils # (auto) 0.02 K/uL (0-0.2); Basophils % (auto) 0.2 %; Eosinophils # (auto) 0.15 K/uL (0-0.5); Eosinophils % (auto) 1.3 %; Hematocrit (blood only) 24.5 % (37-47); Hemoglobin 8.3 g/dL (12.0-16.0); Immature Granulocytes # (auto) 0.05 K/uL (0.00-0.02); Immature Granulocytes % (auto) 0.4 %; Lymphocytes # (auto) 1.68 K/uL (1.2-3.4); Lymphocytes % (auto) 14.7 %; Mean Corpuscular Hemoglobin 31.2 pg (25-34); Mean Corpuscular Hgb Conc 33.9 g/dL (32-36); Mean Corpuscular Volume 92.1 fL (80-100); Mean Platelet Volume 9.4 fL (7.4-10.4); Monocytes # (auto) 0.96 K/uL (0.11-0.59); Monocytes % (auto) 8.4 %; Neutrophils # (auto) 8.59 K/uL (1.4-6.5); Platelet Count 116 K/uL (130-400); RDW Coefficient of Variation 16.4 % (11.5-14.5); RDW Standard Deviation 53.5 fL (36.4-46.3); Red Blood Count 2.66 M/uL (4.2-5.4); White Blood Count 11.45 K/uL (4.8-10.8)
--- NOTE | 2019-06-22 06:09 | Critical Care Progress Note ---
Date of Service June 22, 2019 Assessment & Plan (1) Common bile duct obstruction: Reason Critically Ill: Medically complicated 79-year-old female presenting with pancreatitis secondary to choledocholithiasis status post ERCP with laparoscopic cholecystectomy with postoperative bleeding requiring exploratory laparoscopy, notable for cystic artery bleed which was successfully ligated. Patient remains intubated and requiring close hemodynamic monitoring status post extensive surgical intervention on 06/20. 24 hrs: Patient has been extubated and is satting well on her baseline oxygen requirement. Pressors have been discontinued; she has been able to maintain goal MAPs. Patient did not require any Dilaudid overnight. Patient unable to tolerate a liquid diet - speech eval recommended NPO, no sips or meds. Will remove A-line today. PT/OT ordered. Neuro: [facility] ICU: negative - Dilaudid for analgesia; last dose 06/21. Cardiac: * Hypotension: BP currently 120/52, MAP 75. Goal MAP > 60. pressors weaned. home metoprolol and diltiazem restarted - will convert to IV now that she is NPO * Hx CHF: EHCO 06/18 with persevered EF of 60-65%. Restarted home metoprolol 100mg BID. * Hx persistent A-fib - currently rate 90s. Eliquis being held in the setting of recent bleed. restarted home metoprolol and diltiazem for improved rate control. 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 * Hx pacemaker - patient follows with [facility] cardiology. currently not pacing due to elevated heart rate and demand device. interrogated 02/2019. cardiology following. Respiratory: * Hx recurrent pleural effusions - moderate, non-progressive bilateral pulmonary effusions noted on serial CXRs. d/c maintenance IVF to avoid worsening volume overload. patient follows with Dr. Hickman and has periodic therapeutic thoracenteses. will consider consulting Dr. Hickman for repeat thoracentesis. * Hx COPD - currently satting well on baseline O2 requirement of 3L via NC. continue home breo-ellipta, albuterol prn. * Hx Non-small cell lung cancer - status post chemotherapy. GI: * Choledocholithiasis - non-necrotizing. s/p ERCP with CBD stone removal and stent placement in ventral pancreatic duct and common bile duct and laparoscopic cholecystomy on 06/20. Alk phos normalized. Tbili normal. Liver enzymes continue to be elevated. will follow. GI following, appreciate recs. * Acute pancreatitis - secondary to choledocholithiases. s/p above procedures. lipase elevated to 1001 on 06/20, has since normalized. Dilaudid for pain management. IVF f/c as patient is tolerating clear liquids and has pleural effusions * stress ulcer prophylaxis with Pepcid drip * Malnutrition - albumin 1.9. Per patient, she only tolerates clear liquids at home; had a formal swallow study several years ago and was instructed to follow all-liquid diet. Speech eval today, recommends NPO no sips or meds RENAL/LYTES: * Acute on Chronic Kidney Disease- baseline creatinine ~ 1.5. Peaked at 1.98, down to 1.88 today. Likely related to hypoperfusion. continue to follow * electrolytes WNL, calcium corrects to 9.3. : * urinary retention - urology was consulted intraoperatively during laparotomy for difficulty with catheter placement. - mendoza in place - strict Is/Os - oliguric, with output ~ 375 ml ENDO: * Hx diabetes: BSGs per unit protocol. ICU protocol for hyperglycemia. HEME: * Hgb at 8.3. patient was transfused 2 units while in operating room. Transfuse if hgb <7. etiology likely surgery related blood loss. continue to trend H+H ID: * currently on Day 11/02 of zosyn for choledocholithiasis * WBC normal on admission, elevated to 21 in post-op period; trended down to 11 today - blood cultures from 06/16 showing no growth to date; will repeat cultures today. * Nasal MRSA swab negative. LINES/IV ACCESS: * PIV x2 * Mendoza * JAZLYN drain CODE STATUS: full DVT PROPHYLAXIS: heparin 5,000 units, SQ, q12 Thank you for allowing us to participate in the care of this patient. Please refer to my attending physician's documentation for any further recommendations. Admission and Anticipated Discharge Date Admission Date: June 16, 2019 Supervising Physician Co-Signing Physician Notes Dr. Khan was resident physician during care of patient. I separately evaluated patient for maloney portions of the history and the exam. I was present during the critical portion of medical decision making, and I discussed the case with the resident. I generally agree with the findings and plan. Patient was extubated yesterday and has done well. NG tube was discontinued by general surgery however she was coughing and likely aspirating, this was confirmed by speech and she is strict n.p.o. We have replaced a NG with course a feeding tube and are proceeding with feeds at this point and deferring swallow studies till later during this hospitalization. Patient is stable for downgrade out of the ICU. Subjective Patient in ICU. Reports having increased trouble breathing. Abdominal pain is the same was yesterday. Review of Systems Respiratory: + problem reported Gastrointestinal: + abdominal pain Physical Exam Constitutional: WD/WN, vitals as above Eyes: + anicteric sclerae ENMT: external ear and nose normal, oropharynx normal Neck: trachea midline and + tracheal deviation Respiratory: normal respiratory effort; no respiratory distress Auscultation: + diminished lung sounds (bilateral bases); no crackles, no rales, no rhonchi, no wheezes and no pleural rub Cardiovascular: Rate/Rhythm: regular rate and + irregularly irregular Heart Sounds: normal S1 and normal S2 Extremities: + pedal edema (minimal) Gastrointestinal (Abdomen): Inspection/Auscultation: + abdomen distended, + abdominal surgical incision (white bandage in place over laparotmy incision. clean dry and intact. ) and + abdominal surgical drain present (JAZLYN drain, blood- tingued discharge. ) Percussion/Palpation: + abdomen tender Skin: no rashes, warm and dry Psychiatric: A+Ox3, euthymic affect Genitourinary: Mendoza in place draining yellow urine without visible blood clots Results & Data ([facility]) Vital Signs (Past 12 Hours) Vital Signs Pulse Resp BP Pulse Ox 06/22/19 04:50 92 H 13 108/56 L 97 06/22/19 03:50 92 H 13 106/56 L 100 06/22/19 01:51 97 H 16 97/53 L 100 06/22/19 01:29 102 H 18 131/71 100 06/22/19 01:25 102 H 24 93/77 L 100 06/22/19 00:51 102 H 19 116/60 100 06/22/19 00:20 88 14 124/70 100 06/21/19 23:51 103 H 14 107/52 L 100 06/21/19 23:21 96 H 17 105/64 98 06/21/19 22:53 109 H 25 H 107/56 L 100 06/21/19 22:51 126 H 23 107/56 L 100 06/21/19 22:21 131 H 21 96/62 L 100 06/21/19 21:50 134 H 18 128/86 92 06/21/19 21:48 142 H 15 117/74 93 06/21/19 21:20 100 H 12 108/57 L 100 06/21/19 20:50 94 H 16 112/57 L 100 06/21/19 20:20 96 H 13 130/65 96 06/21/19 19:51 93 H 13 113/66 96 06/21/19 19:20 94 H 14 122/71 99 06/21/19 18:20 98 H 11 L 112/55 L 100 Resident Activity Tracking Resident Involvement: Resident Care Provided Care Provided: Adult Hospital Medicine
--- NOTE | 2019-06-22 06:16 | Surgery Progress Note ---
Date of Service June 22, 2019 Assessment & Plan (1) Postoperative haemorrhage: Patient is resting comfortably She is now off pressors , Vital signs are stable Her H&H is 01/19.9- , Her drain hasLess serosanguineous drainage Do expect some drift in her Hematocrit, But I do not believe she is actively bleeding Would continue subcu heparin for now We will advance her diet and DC her NG tube Could consider transfer to MICU or PCU Results & Data Vital Signs (Past 12 Hours) Vital Signs Pulse Resp BP Pulse Ox 06/22/19 04:50 92 H 13 108/56 L 97 06/22/19 03:50 92 H 13 106/56 L 100 06/22/19 01:51 97 H 16 97/53 L 100 06/22/19 01:29 102 H 18 131/71 100 06/22/19 01:25 102 H 24 93/77 L 100 06/22/19 00:51 102 H 19 116/60 100 06/22/19 00:20 88 14 124/70 100 06/21/19 23:51 103 H 14 107/52 L 100 06/21/19 23:21 96 H 17 105/64 98 06/21/19 22:53 109 H 25 H 107/56 L 100 06/21/19 22:51 126 H 23 107/56 L 100 06/21/19 22:21 131 H 21 96/62 L 100 06/21/19 21:50 134 H 18 128/86 92 06/21/19 21:48 142 H 15 117/74 93 06/21/19 21:20 100 H 12 108/57 L 100 06/21/19 20:50 94 H 16 112/57 L 100 06/21/19 20:20 96 H 13 130/65 96 06/21/19 19:51 93 H 13 113/66 96 06/21/19 19:20 94 H 14 122/71 99 06/21/19 18:20 98 H 11 L 112/55 L 100 PG Care Time/CCT Total # of Minutes Spent Total Time Spent with Patient: Total time spent is greater than 50% in coordination of care (as documented) at patient's floor/unit and/or counseling patient: Coding Level of Care Code None Diagnoses Postoperative haemorrhage
--- NOTE | 2019-06-22 07:37 | XRay Report ---
XR chest 1V portable CLINICAL HISTORY: f/u COMPARISON STUDY: Chest radiograph June 21, 2019. FINDINGS: Single-lead left subclavian pacemaker is in place. Endotracheal and nasogastric tubes have been removed. Moderate right and small left pleural effusions persist bibasilar opacities. There is p ersistent pulmonary edema. There is no pneumothorax. Cardiomediastinal silhouette is stable. IMPRESSION: 1. Interval removal of the endotracheal and nasogastric tubes. 2. Persistent bilateral pleural effusions and pulmonary edema. ACT 112: Negative or not required by law. Electronically signed by: Elías Nicole M.D. 06/22/2019 7:36 AM
--- NOTE | 2019-06-22 09:31 | Cardiology Progress Note ---
Date of Service June 22, 2019 Assessment & Plan (1) Acute cholecystitis: s/p ERCP and Lap ning with re-exploration (2) Chronic kidney disease (CKD): Renal function appears stable. (3) Tachy-rex syndrome: Normally functioning pacemaker in place with atrial fibrillation rates mildly elevated as per in past in part secondary to acute complaints and lapse in medications Pacemaker currently not being used due to elevated heart rate and demand device Pacer lead interrogation last 03/15/2019 with normal function and excellent battery life (4) Chronic atrial fibrillation: rates elevated will attempt to re-institute PO meds metoprolol tartrate (crushable) 25mg po q8 to be started now, may uptitrate as tolerates obviously, Eliquis will remain on hold for now will restart diltiazem based on response to metoprolol (5) Recurrent pleural effusion on right: Stable Past effusions have been managed with repeat thoracenteses Currently compensated without complaint We will continue to follow clinically for now (6) CAD (coronary artery disease): given hx of CAD along with afib and rvr: INR should be maintained above 9 recommend transfuse PRBC x 1 now and follow Subjective Pt seen and examined, oob in chair, confused today. No complaints reported overnight. Pt is having difficulty swallowing, oral meds attempted with some success. No reports of chest pain, sob, palpitations, lightheadedness or dizziness. tele reviewed: afib rates consistently >100 overnight Review of Systems Review of Systems: Unobtainable due to cognitive status Physical Exam Physical Exam: General: Awake, alert and oriented x 3. No acute distress. HEENT: Normocephalic, atraumatic. Pupils equal, round and reactive to light and accommodation. Extraocular muscles are intact. Anicteric sclera. Moist mucous membranes. Neck: No JVD. No bruit. Cardiovascular: irregularly irregular, unable to appreciate murmur, rub or gallop. Pulmonary: Clear to auscultation bilaterally. No rales, rhonchi, or wheezing. Abdomen: Bowel sounds x 4, soft. No rebound, guarding or tenderness. No organomegaly. Extremities: No clubbing, cyanosis or edema. +2 pedal pulses bilaterally. Skin: Warm and dry. Results & Data Vital Signs (Past 12 Hours) Vital Signs Pulse Resp BP Pulse Ox 06/22/19 05:50 92 H 17 120/52 L 100 06/22/19 04:50 92 H 13 108/56 L 97 06/22/19 03:50 92 H 13 106/56 L 100 06/22/19 01:51 97 H 16 97/53 L 100 06/22/19 01:29 102 H 18 131/71 100 06/22/19 01:25 102 H 24 93/77 L 100 06/22/19 00:51 102 H 19 116/60 100 06/22/19 00:20 88 14 124/70 100 06/21/19 23:51 103 H 14 107/52 L 100 06/21/19 23:21 96 H 17 105/64 98 06/21/19 22:53 109 H 25 H 107/56 L 100 06/21/19 22:51 126 H 23 107/56 L 100 06/21/19 22:21 131 H 21 96/62 L 100 06/21/19 21:50 134 H 18 128/86 92 06/21/19 21:48 142 H 15 117/74 93 Laboratory Results Laboratory Results - last 24 hr 06/21/19 06/21/19 06/21/19 12:39 14:42 14:42 WBC RBC Hgb 9.9 L Hct 28.8 L MCV MCH MCHC RDW Std Deviation RDW Coeff of Ilya Plt Count MPV Immature Gran % (Auto) Neut % (Auto) Lymph % (Auto) [place] % (Auto) Eos % (Auto) Baso % (Auto) Immature Gran # (Auto) Neut # (Auto) Lymph # (Auto) [place] # (Auto) Eos # (Auto) Baso # (Auto) Sodium 140 Potassium 4.0 Chloride 112 H Carbon Dioxide 20 L Anion Gap 8.0 BUN 20 H Creatinine 1.98 H D Est Cr Clr Drug Dosing 15.5 Est GFR ( Amer) 27.0 Est GFR (Non-Af Amer) 23.3 BUN/Creatinine Ratio 10.3 Glucose 108 H POC Glucose POC Glucose (other) 96 Calcium 8.0 L Ionized Calcium Phosphorus Magnesium Total Bilirubin AST ALT Alkaline Phosphatase Total Protein Albumin Globulin Albumin/Globulin Ratio 06/21/19 06/22/19 06/22/19 14:42 00:13 00:15 WBC RBC Hgb 9.1 L Hct 26.9 L MCV MCH MCHC RDW Std Deviation RDW Coeff of Ilya Plt Count MPV Immature Gran % (Auto) Neut % (Auto) Lymph % (Auto) [place] % (Auto) Eos % (Auto) Baso % (Auto) Immature Gran # (Auto) Neut # (Auto) Lymph # (Auto) [place] # (Auto) Eos # (Auto) Baso # (Auto) Sodium Potassium Chloride Carbon Dioxide Anion Gap BUN Creatinine Est Cr Clr Drug Dosing Est GFR ( Amer) Est GFR (Non-Af Amer) BUN/Creatinine Ratio Glucose POC Glucose 100 H POC Glucose (other) Calcium Ionized Calcium 1.12 Phosphorus Magnesium Total Bilirubin AST ALT Alkaline Phosphatase Total Protein Albumin Globulin Albumin/Globulin Ratio 06/22/19 06/22/19 04:47 04:51 WBC 11.45 H RBC 2.66 L Hgb 8.3 L Hct 24.5 L MCV 92.1 MCH 31.2 MCHC 33.9 RDW Std Deviation 53.5 H RDW Coeff of Ilya 16.4 H Plt Count 116 L MPV 9.4 Immature Gran % (Auto) 0.4 Neut % (Auto) 75.0 Lymph % (Auto) 14.7 [place] % (Auto) 8.4 Eos % (Auto) 1.3 Baso % (Auto) 0.2 Immature Gran # (Auto) 0.05 H Neut # (Auto) 8.59 H Lymph # (Auto) 1.68 [place] # (Auto) 0.96 H Eos # (Auto) 0.15 Baso # (Auto) 0.02 Sodium 140 Potassium 3.6 Chloride 111 H Carbon Dioxide 22 Anion Gap 7.0 BUN 22 H Creatinine 1.88 H Est Cr Clr Drug Dosing 16.3 Est GFR ( Amer) 28.7 Est GFR (Non-Af Amer) 24.8 BUN/Creatinine Ratio 11.5 Glucose 93 POC Glucose POC Glucose (other) Calcium 7.6 L Ionized Calcium Phosphorus 4.1 Magnesium 2.0 Total Bilirubin 0.6 AST 266 H ALT 170 H Alkaline Phosphatase 114 Total Protein 4.4 L Albumin 1.9 L Globulin 2.5 Albumin/Globulin Ratio 0.8 L Medications Administered Current Inpatient Medications Hydrocodone Bitart/Acetaminophen ([place] 5/325) 1 tab PO Q4HWA PRN PRN Reason: Pain Stop: 07/04/19 20:12 Hydrocodone Bitart/Acetaminophen ([place] 5/325) 2 tab PO Q4HWA PRN PRN Reason: Pain Stop: 07/04/19 20:12 Albuterol (Ventolin Hfa) 2 puffs INH QID PRN PRN Reason: Wheezing Stop: 07/16/19 16:25 Diltiazem HCl (Cardizem Cd) 360 mg PO DAILY [facility] Stop: 07/17/19 08:59 Last Admin: 06/21/19 10:49 Dose: Not Given Documented by: Docusate Sodium (Colace) 100 mg PO BID [facility] Stop: 07/21/19 21:29 Last Admin: 06/21/19 22:01 Dose: 100 mg Documented by: Fluticasone/Vilanterol (Breo Ellipta 100/25 Mcg Inh) 1 puffs INH DAILY [facility]; Protocol Stop: 07/16/19 16:59 Last Admin: 06/21/19 11:58 Dose: 1 puffs Documented by: Heparin Sodium (Porcine) (Heparin Sodium (Porcine)) 5,000 units SQ Q12 [facility] Stop: 07/21/19 20:59 Last Admin: 06/21/19 21:26 Dose: 5,000 units Documented by: Hydromorphone HCl (Dilaudid) 0.2 - 0.4 mg IV Q3HWA PRN; Protocol PRN Reason: PAIN PER SCALE- SEE PROTOCOL Stop: 07/05/19 10:50 Last Admin: 06/21/19 14:19 Dose: 0.4 mg Documented by: Piperacillin Sod/Tazobactam (Sod 3.375 gm/ Dextrose) 115 mls @ 28.75 mls/hr IV Q12H [facility]; Protocol Stop: 06/27/19 01:59 Last Infusion: 06/22/19 05:35 Dose: Infused Documented by: Promethazine HCl 12.5 mg/ (Sodium Chloride) 50.5 mls @ 204 mls/hr IV Q6H PRN PRN Reason: Nausea And Vomiting Stop: 07/20/19 20:12 Acetaminophen (Ofirmev) 1,000 mg in 100 mls @ 400 mls/hr IV Q8H PRN PRN Reason: Fever/Mild Pain (Pain 1,2,3) Stop: 06/24/19 13:36 Last Infusion: 06/21/19 12:31 Dose: Infused Documented by: Phenylephrine HCl 20 mg/ (Dextrose) 502 mls @ 0 mls/hr IV .Q0M [facility]; Protocol Stop: 07/20/19 21:44 Last Titration: 06/21/19 18:10 Dose: 0 mcg/kg/min, 0 mls/hr Documented by: Parenteral Electrolytes (Normosol-R) 1,000 mls @ 80 mls/hr IV .[id number] [facility] Stop: 07/21/19 10:59 Last Admin: 06/21/19 23:36 Dose: 80 mls/hr Documented by: Famotidine 20 mg/ Syringe 5 mls @ 2.5 mls/min IV DAILY [facility] Stop: 07/20/19 20:59 Lorazepam (Ativan) 0.5 mg PO HS PRN PRN Reason: Sleep Stop: 07/16/19 16:25 Last Admin: 06/19/19 22:15 Dose: 0.5 mg Documented by: Metoprolol Tartrate (Lopressor) 100 mg PO BID [facility] Stop: 07/16/19 20:59 Last Admin: 06/21/19 21:26 Dose: 100 mg Documented by: Miscellaneous (Icu Protocol For Hyperglycemia) 1 ea N/A PRN PRN; Protocol PRN Reason: Hyperglycemia Protocol Stop: 06/22/19 20:13 Miscellaneous Information (Consult) 1 ea N/A UD PRN PRN Reason: Consult Stop: 07/16/19 16:44 Nitroglycerin (Nitrostat) 0.4 mg SL UD PRN PRN Reason: Chest Pain Stop: 07/16/19 16:25 Ondansetron HCl (Zofran) 4 mg IV Q6H PRN PRN Reason: Nausea Stop: 07/16/19 16:58 Pantoprazole Sodium (Protonix) 40 mg PO DAILY [facility] Stop: 07/17/19 08:59 Last Admin: 06/21/19 10:49 Dose: Not Given Documented by: Polyethylene Glycol (Miralax Powder Packet) 17 gm PO DAILY PRN PRN Reason: Constipation Stop: 07/16/19 16:58
[2019-06-22] MEDS: METOPROLOL TARTRATE 100 MG TAB PO SCH (09:46)
[2019-06-22] MEDS: dilTIAZem HCL 180 MG CAPCR PO SCH (09:46)
[2019-06-22] MEDS: HYDROmorphone INJ 0.5 MG/0.5 ML SYR IV PRN ×2 (10:09→17:52)
[2019-06-22] MEDS: FLUTICASONE/VILANTEROL 100/25MCG 14 PUFFS/INHALER INH SCH (10:13)
[2019-06-22] MEDS: HEPARIN SOD 5,000 UNIT/0.5 ML VIAL SQ SCH ×2 (10:13→22:29)
[2019-06-22] MEDS: FAMOTIDINE 20 MG in SYRINGE 3 ML IV SCH (10:14)
[2019-06-22] MEDS ORDERED: HYDROmorphone INJ 0.5 MG/0.5 ML SYR IV STA (10:34)
[2019-06-22] MEDS ORDERED: SODIUM CHLORIDE 0.9% 250 ML IV PRN (10:59)
[2019-06-22] MEDS: METOPROLOL TARTRATE 25 MG TAB PO SCH ×2 (11:38→22:28)
[2019-06-22] MEDS: DOCUSATE SODIUM SYRUP 100 MG/10 ML UDC PO SCH ×2 (11:38→22:12)
[2019-06-22] MEDS: PANTOprazole 40 MG TAB PO SCH (11:38)
[2019-06-22] MEDS: NORMOSOL-R 1,000 ML IV SCH (18:00)
[2019-06-22] MEDS ORDERED: METOPROLOL TARTRATE 1 MG/ML VIAL IV SCH (18:00)
--- NOTE | 2019-06-22 18:14 | XRay Report ---
XR KUB/Abdomen 1 view CLINICAL HISTORY: confirm ngt placement tube position COMPARISON STUDY: No previous studies for comparison. FINDINGS: Nasogastric tube placed in the mid stomach. Postoperative changes right flank and common bile duct. Small bilateral pleural effusions with partia l left lower lobe consolidation. IMPRESSION: Nasogastric tube placement mid stomach. ACT 112: Negative or not required by law. The above report was generated using voice recognition software. It may contain grammatical, syntax or spelling errors. Electronically signed by: Enrique Reyes M.D. 06/22/2019 6:13 PM
--- NOTE | 2019-06-22 18:55 | Hospitalist Progress Note ---
Date of Service June 22, 2019 Assessment & Plan (1) Biliary colic: Likely acute cholecystitis vs gallstones which may have passed considering improving LFT Liver ultrasound did show mild gallbladder wall thickening, trace pericholecystic fluid and patient does have Krishna sign S/P Lap Cholecystectomy on 06/[address] Charlton S/P Endoscopic Retrograde Cholangiopancreatogram, Endoscopic Ultrasonography Upper, Esophagogastroduodenoscopy on 06/20 performed by Allyssa Clark MD Postoperative hemorrhage for cystic artery bleeding. Continue IV Zosyn for pain S/P extubation yesterday Continue gentle IVF (2) Hypotension: BP improved Pressor was discontinued Continue monitor BP (3) CHF exacerbation: Patient had good diuresis with IV Lasix on admission with creatinine bump Has chronic pleural effusion Lasix on hold due to Low BP and elevated creatinine at 1.9 cardiology on board (4) Adenocarcinoma, lung: Pt stated she is in remission, however, there is an increase in the spiculated RUL nodule on the CT image today which has changed from imaging done last year. Will need to be reviewed by her PCP/lung specialist outpatient (5) Tachy-rex syndrome: (6) Chronic atrial fibrillation: Metoprolol on hold since pt has been NPO HR has been fluctuated Consider to add on low dose metoprolol IV while NPO Eliquis on hold due to recent surgery Will resume Diltiazem and metoprolol once able to take oral (7) Anemia: Hgb dropped to 8.3 today Received 1 unit PRBC today (Total 3 unit PRBC so far during hospital course) 2 units were given on 06/20 in the OR Monitor CBC (8) DVT prophylaxis: Eliquis on hold in preparation for surgery Continue heparin SQ for now. Full Code Admission and Anticipated Discharge Date Admission Date: June 16, 2019 Subjective Pt was seen and examined Lying in bed with no distress Pt said that her pain is controlled Denies any chest pain, palpitation and SOB Physical Exam Physical Exam: General- No acute distress Head- atraumatic Eyes- PERRL, EOMI, ENT- oropharynx clear Neck- supple, no JVD Lungs- clear to auscultation Heart- irregular rhythm; no murmur Abdomen- normal bowel sounds, soft, nontender Extremities- no calf tenderness Neuro- alert, oriented x 3; PERRL, EOMI; no facial palsy; no dysarthria Skin- warm & dry Results & Data ([facility]) Vital Signs (Past 12 Hours) Vital Signs Temp Pulse Resp BP Pulse Ox 06/22/19 17:52 128 H 153/120 H 06/22/19 15:27 36.8 C 118 H 14 140/84 94 06/22/19 14:27 36.6 C 119 H 16 115/67 99 06/22/19 13:57 116 H 15 113/61 99 06/22/19 13:27 37.0 C 123 H 16 109/58 L 97 06/22/19 13:06 111 H 10 L 102/58 L 98 06/22/19 12:57 37.0 C 110 H 13 90/56 L 98 06/22/19 12:56 112 H 12 90/56 L 98 06/22/19 12:46 110 H 12 101/58 L 99 06/22/19 12:39 36.6 C 113 H 14 112/41 L 97 06/22/19 12:36 107 H 10 L 90/53 L 99 06/22/19 12:24 36.5 C 108 H 16 96/38 L 98 06/22/19 12:21 110 H 17 81/47 L 98 06/22/19 11:41 112 H 17 89/63 L 94 06/22/19 11:21 110 H 15 92/51 L 96 06/22/19 10:52 117 H 27 H 99/56 L 97 06/22/19 10:43 149 H 27 H 111/78 95 06/22/19 10:22 112 H 27 H 90/54 L 97 06/22/19 09:52 103 H 20 107/72 98 06/22/19 08:51 105 H 23 98/50 L 98 06/22/19 07:51 118 H 25 H 93/52 L 96 (1) CHF exacerbation Heart failure type: unspecified Qualified Code(s): I50.9 - Heart failure, unspecified (2) Anemia Anemia type: unspecified type Qualified Code(s): D64.9 - Anemia, unspecified
--- NOTE | 2019-06-22 19:03 | Electrocardiogram Report ---
Test Reason : Blood Pressure : / mmHG Vent. Rate : 098 BPM Atrial Rate : 000 BPM P-R Int : 000 ms QRS Dur : 082 ms QT Int : 352 ms P-R-T Axes : 000 040 -88 degrees QTc Int : 449 ms Atrial fibrillation Low voltage QRS Nonspecific T wave abnormality Abnormal ECG When compared with ECG of 21-JUN-2019 07:20, QT has lengthened Confirmed by Salomon Pike ([id number]) on 06/22/2019 7:02:46 PM Referred By: REFERRED SELF Confirmed By:John Pike
[2019-06-22] MEDS: PEPTAMEN 1.5 CAL 1,000 ML BAG PO SCH (22:28)
[2019-06-22 22:43] LABS: Hematocrit (blood only) 28.9 % (37-47); Hemoglobin 9.8 g/dL (12.0-16.0); Mean Corpuscular Hemoglobin 31.3 pg (25-34); Mean Corpuscular Hgb Conc 33.9 g/dL (32-36); Mean Corpuscular Volume 92.3 fL (80-100); Mean Platelet Volume 9.1 fL (7.4-10.4); Platelet Count 107 K/uL (130-400); RDW Coefficient of Variation 15.6 % (11.5-14.5); RDW Standard Deviation 51.1 fL (36.4-46.3); Red Blood Count 3.13 M/uL (4.2-5.4); White Blood Count 8.55 K/uL (4.8-10.8)
[2019-06-22 23:00] LABS: BUN Creatinine Ratio 12.5 (10-20); Calcium 8.1 mg/dl (8.5-10.1); Creatinine Clr Calc Pharmacy 19.2 ml/min; Est GFR (African American) 35.2; Est GFR (Non-African American) 30.3; Potassium 3.6 mmol/L (3.5-5.1)
[2019-06-22 23:04] LABS: Phosphorus 3.2 mg/dl (2.5-4.9)
[2019-06-22] MEDS ORDERED: POTASSIUM CHLORIDE 20 MEQ/15 ML UDC PO STA (23:29)
[2019-06-23] MEDS ORDERED: FENTANYL BOLUS FROM BAG IV ONE (01:34)
[2019-06-23] MEDS ORDERED: METOPROLOL TARTRATE 1 MG/ML VIAL IV STA ×2 (01:54→04:01)
[2019-06-23] MEDS: PIPERACILLIN/TAZOBACTAM 3.375 GM in DEXTROSE 5% 100 ML IV SCH ×2 (02:07→13:15)
[2019-06-23] MEDS: HYDROmorphone INJ 0.5 MG/0.5 ML SYR IV PRN ×3 (02:36→17:27)
[2019-06-23] MEDS ORDERED: LORazepam 0.5 MG/1 ML VIAL IV STA (04:29)
[2019-06-23 04:34] LABS: Basophils # (auto) 0.02 K/uL (0-0.2); Basophils % (auto) 0.2 %; Eosinophils # (auto) 0.16 K/uL (0-0.5); Eosinophils % (auto) 1.4 %; Hematocrit (blood only) 31.4 % (37-47); Hemoglobin 10.5 g/dL (12.0-16.0); Immature Granulocytes # (auto) 0.07 K/uL (0.00-0.02); Immature Granulocytes % (auto) 0.6 %; Lymphocytes # (auto) 2.71 K/uL (1.2-3.4); Lymphocytes % (auto) 23.1 %; Mean Corpuscular Hemoglobin 31.1 pg (25-34); Mean Corpuscular Hgb Conc 33.4 g/dL (32-36); Mean Corpuscular Volume 92.9 fL (80-100); Mean Platelet Volume 9.7 fL (7.4-10.4); Monocytes # (auto) 1.08 K/uL (0.11-0.59); Monocytes % (auto) 9.2 %; Neutrophils # (auto) 7.71 K/uL (1.4-6.5); Neutrophils % (auto) 65.5 %; Nucleated RBC # (auto) 0.04 K/uL (0-0); Nucleated RBC % (auto) 0.3 %; Platelet Count 142 K/uL (130-400); RDW Coefficient of Variation 15.7 % (11.5-14.5); RDW Standard Deviation 51.9 fL (36.4-46.3); Red Blood Count 3.38 M/uL (4.2-5.4); White Blood Count 11.75 K/uL (4.8-10.8)
[2019-06-23] MEDS: LORazepam 0.5 MG TAB PO PRN (04:43)
[2019-06-23 05:00] LABS: Albumin Globulin Ratio 0.7 (0.9-2); Albumin Level 2.2 gm/dl (3.4-5.0); BUN Creatinine Ratio 11.3 (10-20); Bilirubin,Total 0.8 mg/dl (0.2-1); Calcium 8.2 mg/dl (8.5-10.1); Creatinine Clr Calc Pharmacy 19.6 ml/min; Est GFR (Non-African American) 31.1; Globulin 3.3 gm/dl (2.5-4.0); Magnesium 2.1 mg/dl (1.8-2.4); Phosphorus 2.9 mg/dl (2.5-4.9); Potassium 4.2 mmol/L (3.5-5.1); Total Protein 5.5 gm/dl (6.4-8.2)
--- NOTE | 2019-06-23 06:18 | Critical Care Progress Note ---
Date of Service June 23, 2019 Assessment & Plan (1) Common bile duct obstruction: Reason Critically Ill: Medically complicated 79-year-old female presenting with pancreatitis secondary to choledocholithiasis status post ERCP with laparoscopic cholecystectomy with postoperative bleeding requiring exploratory laparoscopy, notable for cystic artery bleed which was successfully ligated. 24 hrs: Patient currently on post-operative day 3 after above procedures. Pain is well controlled. Maintaining good MAP; HR still above 100 despite metoprolol use. Tube feeds initiated overnight. Urinary output increasing. Patient stable and ready for downgrade to tele. Neuro: [facility] ICU: negative - Dilaudid for analgesia Cardiac: * Hypotension: resolved. BP currently 127/85, MAP 99. Goal MAP > 60. continue metoprolol 25mg q8 * Hx CHF: EHCO 06/18 with persevered EF of 60-65%. continue metoprolol as above. * Hx persistent A-fib - currently rate 90s. Eliquis being held in the setting of recent bleed. continue metoprolol as above. consider restarting diltiazem now that BP has improved. continue ekg monitor. * Hx pacemaker - patient [facility] with [facility] cardiology. currently not pacing due to elevated heart rate and demand device. interrogated 02/2019. cardiology following. Respiratory: * Hx recurrent pleural effusions - moderate, non-progressive bilateral pulmonary effusions noted on serial CXRs. d/c maintenance IVF to avoid worsening volume overload. patient follows with Dr. Hickman and has periodic therapeutic thoracenteses. will consider consulting Dr. Hickman for repeat thoracentesis. * Hx COPD - currently satting well on baseline O2 requirement of 3L via NC. continue home breo-ellipta, albuterol prn. * Hx Non-small cell lung cancer - status post chemotherapy. GI: * Choledocholithiasis - non-necrotizing. s/p ERCP with CBD stone removal and stent placement in ventral pancreatic duct and common bile duct and laparoscopic cholecystomy on 06/20. Alk phos normalized. Tbili normal. Liver enzymes downtrending. continue to trend. GI following, appreciate recs. * Acute pancreatitis - secondary to choledocholithiases. s/p above procedures. lipase elevated to 1001 on 06/20, has since normalized. Dilaudid for pain management. * stress ulcer prophylaxis with Pepcid drip * Malnutrition - albumin 1.9. Patient currently NPO per speech recommendations. Coresafe placed, currently tolerating tube feeds at a rate of 10, goal of 40. Speech considering video swallow. RENAL/LYTES: * Acute on Chronic Kidney Disease- baseline creatinine ~ 1.5. Peaked at 1.98, down to 1.88 today. Likely related to hypoperfusion. continue to follow * electrolytes WNL, calcium corrects to 9.2. : * urinary retention - urology was consulted intraoperatively during laparotomy for difficulty with catheter placement. - mendoza in place - strict Is/Os - urinary output improving, >680 mls ENDO: * Hx diabetes: BSGs per unit protocol. ICU protocol for hyperglycemia. HEME: * Hgb improved to 10.5. patient was transfused 2 units while in operating room. Transfuse if hgb <7. etiology likely surgery related blood loss. continue to trend H+H ID: * currently on Day 12/03 of zosyn for choledocholithiasis * WBC normal on admission, elevated to 21 in post-op period; trended down to 11 today - blood cultures from 06/16 showing no growth to date; repeat cultures drawn 06/21 showing no growth to date * Nasal MRSA swab negative. LINES/IV ACCESS: * PIV x2 * Mendoza * JAZLYN drain CODE STATUS: full DVT PROPHYLAXIS: heparin 5,000 units, SQ, q12 Thank you for allowing us to participate in the care of this patient. Please refer to my attending physician's documentation for any further recommendations. Admission and Anticipated Discharge Date Admission Date: June 16, 2019 Supervising Physician Co-Signing Physician Notes Dr. Khan was resident physician during care of patient. I separately evaluated patient for maloney portions of the history and the exam. I was present during the critical portion of medical decision making, and I discussed the case with the resident. I generally agree with the findings and plan. Course safe was reinserted, she is tolerating her tube feedings. Continue antibiotics at this time for cholangitis. PT OT, transfer orders placed to telemetry. She has had atrial fibrillation, she is on DVT prophylaxis I do not feel that she requires systemic anticoagulation at this time as the bleeding risk is outweighed by the thrombotic risk. Stable for transfer to [facility] telemetry. Subjective Patient in ICU. Patient pulled coresafe out overnight - a new one was placed. Her pain is well-controlled. Review of Systems Review of Systems: All systems reviewed & are unremarkable except as noted in HPI & below Physical Exam Constitutional: WD/WN, vitals as above Eyes: + anicteric sclerae ENMT: external ear and nose normal, oropharynx normal Neck: trachea midline Respiratory: normal respiratory effort, lungs clear to auscultation normal respiratory effort; no respiratory distress Auscultation: + diminished lung sounds (bilateral bases); no crackles, no rales, no rhonchi, no wheezes and no pleural rub Cardiovascular: Rate/Rhythm: regular rate and + irregularly irregular Heart Sounds: normal S1 and normal S2 Extremities: + pedal edema (minimal) Gastrointestinal (Abdomen): Inspection/Auscultation: + abdomen distended, + abdominal surgical incision (white bandage in place over laparotmy incision. clean dry and intact. ) and + abdominal surgical drain present (JAZLYN drain, blood- tingued discharge. Stratton drain. ) Percussion/Palpation: + abdomen tender (RUQ) Skin: no rashes, warm and dry Psychiatric: A+Ox3, euthymic affect Genitourinary: Mendoza in place draining yellow colored urine Results & Data ([facility]) Vital Signs (Past 12 Hours) Vital Signs Temp Pulse Resp BP Pulse Ox 06/23/19 04:41 124 H 149/112 H 06/23/19 02:08 122 H 129/91 06/22/19 22:00 102 H 14 99 06/22/19 21:57 101 H 15 132/74 99 06/22/19 21:47 113 H 12 135/62 99 06/22/19 21:45 105 H 11 L 99 06/22/19 21:37 112 H 11 L 142/70 H 98 06/22/19 21:30 110 H 16 98 06/22/19 21:15 112 H 14 98 06/22/19 21:00 117 H 13 97 06/22/19 20:45 112 H 17 98 06/22/19 20:30 98 H 10 L 100 06/22/19 20:27 99 H 13 102/61 100 06/22/19 20:17 105 H 17 124/86 100 06/22/19 20:15 98 H 11 L 100 06/22/19 20:07 103 H 15 112/60 100 06/22/19 20:00 36.7 C 109 H 13 100 06/22/19 19:57 107 H 12 97/53 L 100 06/22/19 19:47 108 H 14 111/68 100 06/22/19 19:45 100 H 12 100 06/22/19 19:37 111 H 12 110/57 L 100 06/22/19 19:30 98 H 13 99 06/22/19 19:27 104 H 12 93/50 L 100 06/22/19 19:17 100 H 13 114/59 L 98 06/22/19 19:15 107 H 12 98 06/22/19 19:07 107 H 21 107/88 97 06/22/19 19:00 105 H 15 97 06/22/19 18:57 119 H 15 102/58 L 95 06/22/19 18:47 111 H 12 99/55 L 97 06/22/19 18:45 115 H 11 L 97 06/22/19 18:37 115 H 24 106/63 92 06/22/19 18:30 109 H 14 95 06/22/19 18:27 126 H 17 98/61 L 91 Resident Activity Tracking Resident Involvement: Resident Care Provided Care Provided: Adult Hospital Medicine
[2019-06-23] MEDS: METOPROLOL TARTRATE 25 MG TAB PO SCH ×3 (06:23→21:26)
--- NOTE | 2019-06-23 06:34 | XRay Report ---
KUB CLINICAL HISTORY: coresafe placement COMPARISON STUDY: CT of the abdomen and pelvis June 16, 2019. KUB June 22, 2019. FINDINGS: Pacer lead is partially imaged. There are \bilateral pleural effusions with bibasilar opaci ties. Surgical clips and drains within the right upper quadrant are noted. Biliary stent is in place. The feeding tube has been advanced. The tip is within the proximal duodenum. Bowel gas pattern is un remarkable. IMPRESSION: Interval advancement of the feeding tube. Tip projects over the proximal duodenum. ACT 112: Negative or not required by law. Electronically signed by: Elías Nicole M.D. 06/23/2019 6:33 AM
--- NOTE | 2019-06-23 07:28 | Surgery Progress Note ---
Date of Service June 23, 2019 Assessment & Plan (1) Postoperative haemorrhage: anxious during night- ativan helped awake, alert H/H stable- Drain- ? bloody 50-60 per sh- on SQ Heparin tolerating tube feeds check PT/PTT- some concern re anticoags- H/H ok to MICU/PCU when ok with med team Results & Data Vital Signs (Past 12 Hours) Vital Signs Temp Pulse Resp BP Pulse Ox 06/23/19 06:04 116 H 14 100 06/23/19 06:03 108 H 14 125/86 100 06/23/19 06:00 36.8 C 104 H 13 100 06/23/19 05:03 111 H 19 108/79 100 06/23/19 05:00 119 H 17 99 06/23/19 04:41 124 H 149/112 H 06/23/19 04:04 142 H 29 H 149/112 H 98 06/23/19 04:00 36.9 C 142 H 17 95 06/23/19 03:04 114 H 28 H 122/65 98 06/23/19 03:00 112 H 23 98 06/23/19 02:27 132 H 27 H 129/91 06/23/19 02:08 122 H 129/91 06/23/19 02:04 121 H 16 129/91 93 06/23/19 02:00 36.8 C 131 H 17 96 06/23/19 01:58 131 H 20 119/102 H 95 06/23/19 01:48 121 H 14 151/93 H 96 06/23/19 01:38 109 H 18 133/90 98 06/23/19 01:28 108 H 17 148/84 H 97 06/23/19 01:18 109 H 14 134/75 100 06/23/19 01:07 97 H 12 146/76 H 99 06/23/19 01:00 102 H 12 99 06/23/19 00:58 99 H 14 133/100 100 06/23/19 00:47 105 H 15 135/84 99 06/23/19 00:38 115 H 13 134/72 99 06/23/19 00:27 108 H 13 139/81 99 06/23/19 00:17 113 H 13 127/76 100 06/23/19 00:07 98 H 12 129/74 100 06/23/19 00:00 36.8 C 103 H 18 100 06/22/19 23:57 104 H 12 127/71 99 06/22/19 23:47 94 H 13 123/84 100 06/22/19 23:37 103 H 12 137/76 100 06/22/19 23:27 101 H 16 128/70 100 06/22/19 23:17 107 H 18 127/75 100 06/22/19 23:08 110 H 14 126/70 100 06/22/19 23:00 108 H 15 100 06/22/19 22:57 107 H 14 142/106 H 99 06/22/19 22:47 102 H 13 136/83 100 06/22/19 22:37 107 H 15 130/70 100 06/22/19 22:27 106 H 12 125/73 99 06/22/19 22:17 113 H 12 130/85 06/22/19 22:07 105 H 15 130/73 100 06/22/19 22:00 102 H 14 99 06/22/19 21:57 101 H 15 132/74 99 06/22/19 21:47 113 H 12 135/62 99 06/22/19 21:45 105 H 11 L 99 06/22/19 21:37 112 H 11 L 142/70 H 98 06/22/19 21:30 110 H 16 98 06/22/19 21:15 112 H 14 98 06/22/19 21:00 117 H 13 97 06/22/19 20:45 112 H 17 98 06/22/19 20:30 98 H 10 L 100 06/22/19 20:27 99 H 13 102/61 100 06/22/19 20:17 105 H 17 124/86 100 06/22/19 20:15 98 H 11 L 100 06/22/19 20:07 103 H 15 112/60 100 06/22/19 20:00 36.7 C 109 H 13 100 06/22/19 19:57 107 H 12 97/53 L 100 06/22/19 19:47 108 H 14 111/68 100 06/22/19 19:45 100 H 12 100 06/22/19 19:37 111 H 12 110/57 L 100 06/22/19 19:30 98 H 13 99 06/22/19 19:27 104 H 12 93/50 L 100 PG Care Time/CCT Total # of Minutes Spent Total Time Spent with Patient: Total time spent is greater than 50% in coordination of care (as documented) at patient's floor/unit and/or counseling patient: Coding Level of Care Code None Diagnoses Postoperative haemorrhage
[2019-06-23 08:12] LABS: Partial Thromboplastin Ratio 0.9; Partial Thromboplastin Time 23.6 Seconds (21.0-31.0); Prothrombin Time 10.3 Seconds (9.0-12.0)
--- NOTE | 2019-06-23 09:10 | Billing Data ---
Date of Service June 23, 2019 Coding Level of Care Code 79527 Subseq Hosp Care Lvl 3
--- NOTE | 2019-06-23 09:10 | Billing Data ---
Date of Service June 22, 2019 Coding Level of Care Code 28680 Subseq Hosp Care Lvl 3
[2019-06-23] MEDS: DOCUSATE SODIUM SYRUP 100 MG/10 ML UDC PO SCH ×2 (09:31→21:26)
[2019-06-23] MEDS: FLUTICASONE/VILANTEROL 100/25MCG 14 PUFFS/INHALER INH SCH (09:31)
[2019-06-23] MEDS: HEPARIN SOD 5,000 UNIT/0.5 ML VIAL SQ SCH ×2 (09:32→21:35)
[2019-06-23] MEDS: PANTOprazole 40 MG TAB PO SCH (09:32)
[2019-06-23] MEDS: FAMOTIDINE 20 MG in SYRINGE 3 ML IV SCH (09:33)
--- NOTE | 2019-06-23 11:31 | Cardiology Progress Note ---
Date of Service June 23, 2019 Assessment & Plan (1) Acute cholecystitis: s/p ERCP and Lap ning with re-exploration Slowly improving postsurgically. Now receiving NG feeds bowels active (2) Chronic kidney disease (CKD): Renal function appears stable. (3) Tachy-rex syndrome: Normally functioning pacemaker in place with atrial fibrillation rates mildly elevated as per in past in part secondary to acute complaints and lapse in medications Pacemaker currently not being used due to elevated heart rate and demand device Pacer lead interrogation last 03/15/2019 with normal function and excellent b attery life (4) Chronic atrial fibrillation: rates elevated will attempt to re-institute PO meds metoprolol tartrate (crushable) 25mg po q8 to be started now, may uptitrate as tolerates obviously, Eliquis will remain on hold for now will restart diltiazem based on response to metoprolol No changes made for time being however will likely be able to resume oral meds shortly (5) Recurrent pleural effusion on right: Stable Past effusions have been managed with repeat thoracenteses Currently compensated without complaint We will continue to follow clinically for now (6) CAD (coronary artery disease): Subjective Patient seen and examined, chart, medications, telemetry reviewed. NG feeding tube in place patient awake and alert. Complains of abdominal pain though bowels are working. No chest pains or shortness of breath no tachypalpitations heart rates trending approximately 90-100 Physical Exam Constitutional: no acute distress Eyes: PERRL, conjunctivae normal, anicteric sclerae ENMT: external ear and nose normal, oropharynx normal NG feeding tube tube in place Neck: trachea midline, no thyromegaly Respiratory: Auscultation: + diminished lung sounds Cardiovascular: Rate/Rhythm: + irregularly irregular Vessels: no JVD Extremities: no edema Gastrointestinal (Abdomen): Soft with mild distention surgical incisions appear intact with bandage in place Musculoskeletal: no cyanosis or clubbing, extremities motor strength 5/5 Results & Data Vital Signs (Past 12 Hours) Vital Signs Temp Pulse Resp BP Pulse Ox 06/23/19 08:03 101 H 16 127/85 98 06/23/19 08:00 37 C 99 H 13 98 06/23/19 07:05 119 H 21 152/118 H 89 L 06/23/19 07:00 105 H 12 100 02/28/20 06:04 116 H 14 100 06/23/19 06:03 108 H 14 125/86 100 06/23/19 06:00 36.8 C 104 H 13 100 06/23/19 05:03 111 H 19 108/79 100 06/23/19 05:00 119 H 17 99 06/23/19 04:41 124 H 149/112 H 06/23/19 04:04 142 H 29 H 149/112 H 98 06/23/19 04:00 36.9 C 142 H 17 95 06/23/19 03:04 114 H 28 H 122/65 98 06/23/19 03:00 112 H 23 98 06/23/19 02:27 132 H 27 H 129/91 06/23/19 02:08 122 H 129/91 06/23/19 02:04 121 H 16 129/91 93 06/23/19 02:00 36.8 C 131 H 17 96 06/23/19 01:58 131 H 20 119/102 H 95 06/23/19 01:48 121 H 14 151/93 H 96 06/23/19 01:38 109 H 18 133/90 98 06/23/19 01:28 108 H 17 148/84 H 97 06/23/19 01:18 109 H 14 134/75 100 06/23/19 01:07 97 H 12 146/76 H 99 06/23/19 01:00 102 H 12 99 06/23/19 00:58 99 H 14 133/100 100 06/23/19 00:47 105 H 15 135/84 99 06/23/19 00:38 115 H 13 134/72 99 06/23/19 00:27 108 H 13 139/81 99 06/23/19 00:17 113 H 13 127/76 100 06/23/19 00:07 98 H 12 129/74 100 06/23/19 00:00 36.8 C 103 H 18 100 06/22/19 23:57 104 H 12 127/71 99 06/22/19 23:47 94 H 13 123/84 100 06/22/19 23:37 103 H 12 137/76 100 Laboratory Results Laboratory Results - last 24 hr 06/20/19 06/22/19 06/22/19 17:51 22:32 22:32 WBC 8.55 RBC 3.13 L Hgb 9.8 L Hct 28.9 L MCV 92.3 MCH 31.3 MCHC 33.9 RDW Std Deviation 51.1 H RDW Coeff of Ilya 15.6 H Plt Count 107 L MPV 9.1 Immature Gran % (Auto) Neut % (Auto) Lymph % (Auto) Castro % (Auto) Eos % (Auto) Baso % (Auto) Immature Gran # (Auto) Neut # (Auto) Lymph # (Auto) Castro # (Auto) Eos # (Auto) Baso # (Auto) Absolute Nucleated RBC Nucleated RBC % (auto) PT INR APTT PTT Ratio Sodium 141 Potassium 3.6 Chloride 111 H Carbon Dioxide 22 Anion Gap 8.0 BUN 20 H Creatinine 1.59 H Est Cr Clr Drug Dosing 19.2 Est GFR ( Amer) 35.2 Est GFR (Non-Af Amer) 30.3 BUN/Creatinine Ratio 12.5 Glucose 83 Calcium 8.1 L Phosphorus 3.2 Magnesium 2.0 Total Bilirubin AST ALT Alkaline Phosphatase Total Protein Albumin Globulin Albumin/Globulin Ratio Blood Type A Positive Antibody Screen NEGATIVE Crossmatch See Detail 06/23/19 06/23/19 06/23/19 04:10 04:10 07:45 WBC 11.75 H RBC 3.38 L Hgb 10.5 L Hct 31.4 L MCV 92.9 MCH 31.1 MCHC 33.4 RDW Std Deviation 51.9 H RDW Coeff of Ilya 15.7 H Plt Count 142 MPV 9.7 Immature Gran % (Auto) 0.6 Neut % (Auto) 65.5 Lymph % (Auto) 23.1 Castro % (Auto) 9.2 Eos % (Auto) 1.4 Baso % (Auto) 0.2 Immature Gran # (Auto) 0.07 H Neut # (Auto) 7.71 H Lymph # (Auto) 2.71 Castro # (Auto) 1.08 H Eos # (Auto) 0.16 Baso # (Auto) 0.02 Absolute Nucleated RBC 0.04 H Nucleated RBC % (auto) 0.3 PT 10.3 INR 1.0 APTT 23.6 PTT Ratio 0.9 Sodium 140 Potassium 4.2 D Chloride 111 H Carbon Dioxide 23 Anion Gap 6.0 BUN 18 Creatinine 1.56 H Est Cr Clr Drug Dosing 19.6 Est GFR ( Amer) 36.0 Est GFR (Non-Af Amer) 31.1 BUN/Creatinine Ratio 11.3 Glucose 100 H Calcium 8.2 L Phosphorus 2.9 Magnesium 2.1 Total Bilirubin 0.8 AST 250 H ALT 161 H Alkaline Phosphatase 138 H Total Protein 5.5 L D Albumin 2.2 L Globulin 3.3 Albumin/Globulin Ratio 0.7 L Blood Type Antibody Screen Crossmatch
[2019-06-23] MEDS: NORMOSOL-R 1,000 ML IV SCH (12:15)
--- NOTE | 2019-06-23 19:17 | Hospitalist Progress Note ---
Date of Service June 23, 2019 Assessment & Plan (1) Biliary colic: Likely acute cholecystitis vs gallstones which may have passed considering improving LFT Liver ultrasound did show mild gallbladder wall thickening, trace pericholecystic fluid and patient does have Krishna sign S/P Lap Cholecystectomy on 06/[address] Charlton S/P Endoscopic Retrograde Cholangiopancreatogram, Endoscopic Ultrasonography Upper, Esophagogastroduodenoscopy on 06/20 performed by Allyssa Clark MD Postoperative hemorrhage for cystic artery bleeding. Continue IV Zosyn for pain S/P extubation yesterday Continue Enteral nutrition (2) Hypotension: BP improved Pressor was discontinued Continue monitor BP (3) CHF exacerbation: Patient had good diuresis with IV Lasix on admission with creatinine bump Has chronic pleural effusion Lasix on hold due to Low BP and elevated creatinine Monitor BMP (4) Adenocarcinoma, lung: Pt stated she is in remission, however, there is an increase in the spiculated RUL nodule on the CT image today which has changed from imaging done last year. Will need to be reviewed by her PCP/lung specialist outpatient (5) Tachy-rex syndrome: (6) Chronic atrial fibrillation: Metoprolol on hold since pt has been NPO HR has been fluctuated Eliquis on hold due to recent surgery Metoprolol 25 mg q8h starting Will low dose of lopressor IV prn (7) Anemia: Hgb dropped to 10.5 today (Received Total 3 unit PRBC so far during hospital course) Monitor CBC (8) DVT prophylaxis: Eliquis on hold in preparation for surgery Continue heparin SQ for now. Full Code Admission and Anticipated Discharge Date Admission Date: June 16, 2019 Subjective Pt was seen and examined Lying in bed with no distress She said that pain is controlled Denies any chest pain, palpitation and SOB Physical Exam Physical Exam: General- No acute distress Head- atraumatic Eyes- PERRL, EOMI, ENT- oropharynx clear Neck- supple, no JVD Lungs- clear to auscultation Heart- irregular rhythm; no murmur Abdomen- normal bowel sounds, soft, nontender Extremities- no calf tenderness Neuro- alert, oriented x 3; PERRL, EOMI; no facial palsy; no dysarthria Skin- warm & dry Results & Data ([facility]) Vital Signs (Past 12 Hours) Vital Signs Temp Pulse Pulse Resp BP BP Pulse Ox 06/23/19 19:00 36.6 C 127 H 20 150/82 H 99 06/23/19 15:08 107 H 06/23/19 14:00 36.7 C 124 H 18 116/78 100 06/23/19 12:21 116 H 06/23/19 12:00 36.8 C 129 H 18 126/74 95 06/23/19 08:03 101 H 16 127/85 98 06/23/19 08:00 37 C 99 H 13 98 (1) CHF exacerbation Heart failure type: unspecified Qualified Code(s): I50.9 - Heart failure, unspecified (2) Anemia Anemia type: unspecified type Qualified Code(s): D64.9 - Anemia, unspecified
[2019-06-24] MEDS: HYDROmorphone INJ 0.5 MG/0.5 ML SYR IV PRN ×3 (00:27→15:38)
[2019-06-24] MEDS: PIPERACILLIN/TAZOBACTAM 3.375 GM in DEXTROSE 5% 100 ML IV SCH ×3 (01:52→21:52)
[2019-06-24] MEDS ORDERED: METOPROLOL TARTRATE 1 MG/ML VIAL IV STA ×2 (04:26→04:27)
[2019-06-24] MEDS ORDERED: dilTIAZem HCL 180 MG CAPCR PO SCH (04:45)
--- NOTE | 2019-06-24 05:12 | Communication Note ---
Date of Service: June 24, 2019 Made aware by RN of uncontrolled heart rate since a.m. yesterday. Cardiac rate 100-1 50s. Patient without complaints as per RN. Increased bloody output from JAZLYN drain as per RN. AP Rapid A. fib Increased bloody JAZLYN drain output as per RN IV metoprolol, Cardizem bolus now Titrate maintenance beta-don tab dose currently being administered through Coresafe A.m. labs now Hold heparin SQ until H&H back RN requested to update general surgeon cancellation clerk of JAZLYN drain issues. Will relay to AM provider.
[2019-06-24 05:45] LABS: Basophils # (auto) 0.01 K/uL (0-0.2); Basophils % (auto) 0.1 %; Eosinophils # (auto) 0.17 K/uL (0-0.5); Eosinophils % (auto) 2.5 %; Hematocrit (blood only) 29.4 % (37-47); Hemoglobin 9.7 g/dL (12.0-16.0); Immature Granulocytes # (auto) 0.04 K/uL (0.00-0.02); Immature Granulocytes % (auto) 0.6 %; Lymphocytes % (auto) 17.3 %; Mean Corpuscular Hemoglobin 31.3 pg (25-34); Mean Corpuscular Volume 94.8 fL (80-100); Mean Platelet Volume 10.3 fL (7.4-10.4); Monocytes # (auto) 0.75 K/uL (0.11-0.59); Monocytes % (auto) 10.8 %; Neutrophils # (auto) 4.76 K/uL (1.4-6.5); Neutrophils % (auto) 68.7 %; Platelet Count 140 K/uL (130-400); RDW Coefficient of Variation 15.6 % (11.5-14.5); RDW Standard Deviation 51.9 fL (36.4-46.3); White Blood Count 6.93 K/uL (4.8-10.8)
[2019-06-24] MEDS ORDERED: dilTIAZem HCl 5 MG/ML 5 ML VIAL IV STA ×2 (05:47→06:15)
[2019-06-24 06:25] LABS: Albumin Level 1.9 gm/dl (3.4-5.0); BUN Creatinine Ratio 13.4 (10-20); Bilirubin Direct 0.3 mg/dl (0-0.2); Calcium 7.8 mg/dl (8.5-10.1); Creatinine Clr Calc Pharmacy 31.1 ml/min; Est GFR (African American) 54.9; Est GFR (Non-African American) 47.4
[2019-06-24] MEDS: METOPROLOL TARTRATE 25 MG TAB PO SCH (06:31)
[2019-06-24 06:40] LABS: Bilirubin,Total 0.6 mg/dl (0.2-1); Phosphorus 1.7 mg/dl (2.5-4.9); Total Protein 5.2 gm/dl (6.4-8.2)
[2019-06-24] MEDS: METOPROLOL TARTRATE 50 MG TAB PO SCH ×3 (07:15→21:40)
[2019-06-24] MEDS: PANTOprazole 40 MG TAB PO SCH (07:51)
[2019-06-24] MEDS: DOCUSATE SODIUM SYRUP 100 MG/10 ML UDC PO SCH ×2 (07:51→21:40)
[2019-06-24] MEDS: FLUTICASONE/VILANTEROL 100/25MCG 14 PUFFS/INHALER INH SCH (07:52)
[2019-06-24] MEDS: HYDROCODONE/ACETAMOPHEN 5/325MG TAB PO PRN ×2 (07:56→21:39)
[2019-06-24] MEDS ORDERED: SODIUM PHOSPHATE 3 MMOL/1 ML INFUSION IV STA (08:24)
[2019-06-24] MEDS ORDERED: SODIUM PHOSPHATE 15 MMOL in SODIUM CHLORIDE 0.9% 250 ML IV ONE (09:00)
--- NOTE | 2019-06-24 09:42 | Surgery Progress Note ---
Date of Service June 24, 2019 Assessment & Plan (1) S/P laparoscopic cholecystectomy: s/p lap ning with return for bleed; bloody drainage but slowing vitals OK Hgb just under 10, stable feeding tube in place Subjective resting comfortably no distress Review of Systems Constitutional: no fever and no chills Cardiovascular: no chest pain Gastrointestinal: no abdominal pain, no nausea and no vomiting Physical Exam Constitutional: well developed and well nourished Neck: trachea midline Respiratory: normal respiratory effort Auscultation: + rhonchi Cardiovascular: Rate/Rhythm: + abnormal rhythm Gastrointestinal (Abdomen): Inspection/Auscultation: normal bowel sounds; abdomen not distended Percussion/Palpation: abdomen nontender Skin: no rashes, warm and dry Results & Data Vital Signs (Past 12 Hours) Vital Signs Temp Pulse Pulse Pulse Resp BP BP 06/24/19 07:57 36.7 C 102 H 19 138/85 06/24/19 04:44 152 H 140/80 06/24/19 03:09 36.5 C 129 H 20 06/24/19 01:34 119 H 06/23/19 23:00 36.7 C 118 H 20 BP Pulse Ox 06/24/19 07:57 93 06/24/19 04:44 06/24/19 03:09 135/84 98 06/24/19 01:34 06/23/19 23:00 130/86 99
[2019-06-24 12:56] LABS: Hematocrit (blood only) 29.4 % (37-47); Hemoglobin 9.5 g/dL (12.0-16.0)
[2019-06-24] MEDS: PEPTAMEN 1.5 CAL 1,000 ML BAG PO SCH (13:17)
--- NOTE | 2019-06-24 13:52 | Cardiology Progress Note ---
Date of Service June 24, 2019 Assessment & Plan (1) Acute cholecystitis: s/p ERCP and Lap ning with re-exploration Slowly improving postsurgically. Now receiving NG feeds bowels active (2) Chronic kidney disease (CKD): Renal function appears stable. (3) Tachy-rex syndrome: Normally functioning pacemaker in place with atrial fibrillation rates mildly elevated as per in past in part secondary to acute complaints and lapse in medications Pacemaker currently not being used due to elevated heart rate and demand device Pacer lead interrogation last 03/15/2019 with normal function and excellent b attery life (4) Chronic atrial fibrillation: Rates remain elevated despite reinstitution of her metoprolol. We will restart diltiazem 30 mg via NG tube 3 times daily which I believe is crushable. May increase to 60 mg if necessary for rate control. At this point I am not sure she is any longer an anticoagulation candidate. We will need to discuss with surgery whether or not anticoagulation should be reinstituted. (5) Recurrent pleural effusion on right: Stable Past effusions have been managed with repeat thoracenteses Currently compensated without complaint We will continue to follow clinically for now (6) CAD (coronary artery disease): given hx of CAD along with afib and rvr: HGB should be maintained above 9 Subjective Patient seen and examined very somnolent today. States that she feels tired and fatigued but denies any other complaints. States that her abdomen is feeling okay and denies any chest pain, shortness of breath, palpitations, lightheadedness, dizziness or syncope. Telemetry reviewed: Atrial fibrillation with variable rate response Review of Systems Review of Systems: All systems reviewed & are unremarkable except as noted in HPI & below Physical Exam Physical Exam: General: Awake, alert and oriented x 3. No acute distress. HEENT: Normocephalic, atraumatic. Pupils equal, round and reactive to light and accommodation. Extraocular muscles are intact. Anicteric sclera. Moist mucous membranes. Neck: No JVD. No bruit. Cardiovascular: irregularly irregular, unable to appreciate murmur, rub or gallop. Pulmonary: Clear to auscultation bilaterally. No rales, rhonchi, or wheezing. Abdomen: Bowel sounds x 4, soft. No rebound, guarding or tenderness. No organomegaly. Extremities: No clubbing, cyanosis or edema. +2 pedal pulses bilaterally. Skin: Warm and dry. Results & Data Vital Signs (Past 12 Hours) Vital Signs Temp Pulse Pulse Pulse Resp BP BP 06/24/19 11:01 36.5 C 117 H 18 06/24/19 09:00 105 H 06/24/19 07:57 36.7 C 102 H 19 138/85 06/24/19 04:44 152 H 140/80 06/24/19 03:09 36.5 C 129 H 20 BP Pulse Ox 06/24/19 11:01 121/70 96 06/24/19 09:00 06/24/19 07:57 93 06/24/19 04:44 06/24/19 03:09 135/84 98
[2019-06-24] MEDS: dilTIAZem HCL 30 MG TAB PO SCH ×2 (14:37→21:40)
--- NOTE | 2019-06-24 16:14 | Hospitalist Progress Note ---
Date of Service June 24, 2019 Assessment & Plan (1) Biliary colic: Likely acute cholecystitis vs gallstones which may have passed considering improving LFT Liver ultrasound did show mild gallbladder wall thickening, trace pericholecystic fluid and patient does have Krishna sign S/P Lap Cholecystectomy on 06/[address] Charlton S/P Endoscopic Retrograde Cholangiopancreatogram, Endoscopic Ultrasonography Upper, Esophagogastroduodenoscopy on 06/20 performed by Allyssa Clark MD Postoperative hemorrhage for cystic artery bleeding. Continue IV Zosyn for pain S/P extubation day 2 Continue Enteral nutrition (2) Hypotension: BP improved Pressor was discontinued Continue monitor BP Resolved (3) CHF exacerbation: Patient had good diuresis with IV Lasix on admission with creatinine bump Has chronic pleural effusion Lasix on hold due to Low BP and elevated creatinine Monitor BMP (4) Adenocarcinoma, lung: Pt stated she is in remission, however, there is an increase in the spiculated RUL nodule on the CT image today which has changed from imaging done last year. Will need to be reviewed by her PCP/lung specialist outpatient (5) Tachy-rex syndrome: (6) Chronic atrial fibrillation: Afib with RVR last night with HR in the 150's Received Cardizem IV 10mg and 15mg respectively Currently rate controlled Metoprolol increased to 50mg q8h Cardiology on board cardizem 30mg TID resumed Eliquis on hold due to recent surgery, will discuss with surgery if safe to start Eliquis in am Will add low dose of lopressor 2.5mg IV prn for HR above 120 (7) Anemia: Hgb slightly dropped to 9.5 (Received Total 3 unit PRBC so far during hospital course) Monitor CBC Hypophosphatemia Phosphate 1.7 today Phos replaced Monitor electrolytes (8) DVT prophylaxis: Eliquis on hold in preparation for surgery Heparin SQ on hold due to drop in hgb and bleeding from surgical dressing Code Status Full Code Admission and Anticipated Discharge Date Admission Date: June 16, 2019 Subjective Pt was seen and examined Lying in bed with no distress She said that she feels tired and weak Last night she was in Afib with RVR with HR in the 160's Denies any chest pain, palpitation, dizziness and fever Physical Exam Physical Exam: General- No acute distress Head- atraumatic Eyes- PERRL, EOMI, ENT- oropharynx clear Neck- supple, no JVD Lungs- clear to auscultation Heart- irregular rhythm; no murmur Abdomen- normal bowel sounds, soft, nontender Extremities- no calf tenderness Neuro- alert, oriented x 3; PERRL, EOMI; no facial palsy; no dysarthria Skin- warm & dry Results & Data ([facility]) Vital Signs (Past 12 Hours) Vital Signs Temp Pulse Pulse Pulse Resp BP BP 06/24/19 15:52 36.9 C 93 H 19 114/75 06/24/19 11:01 36.5 C 117 H 18 06/24/19 09:00 105 H 06/24/19 07:57 36.7 C 102 H 19 138/85 06/24/19 04:44 152 H 140/80 BP Pulse Ox 06/24/19 15:52 96 06/24/19 11:01 121/70 96 06/24/19 09:00 06/24/19 07:57 93 06/24/19 04:44 (1) CHF exacerbation Heart failure type: unspecified Qualified Code(s): I50.9 - Heart failure, unspecified (2) Anemia Anemia type: unspecified type Qualified Code(s): D64.9 - Anemia, unspecified
[2019-06-24 18:29] LABS: Hematocrit (blood only) 30.7 % (37-47)
[2019-06-25 05:49] LABS: Hematocrit (blood only) 31.5 % (37-47); Hemoglobin 10.1 g/dL (12.0-16.0); Mean Corpuscular Hemoglobin 31.2 pg (25-34); Mean Corpuscular Hgb Conc 32.1 g/dL (32-36); Mean Corpuscular Volume 97.2 fL (80-100); Mean Platelet Volume 9.7 fL (7.4-10.4); Platelet Count 162 K/uL (130-400); RDW Standard Deviation 54.1 fL (36.4-46.3); Red Blood Count 3.24 M/uL (4.2-5.4); White Blood Count 7.02 K/uL (4.8-10.8)
[2019-06-25] MEDS: METOPROLOL TARTRATE 50 MG TAB PO SCH ×3 (05:50→21:30)
[2019-06-25] MEDS: HYDROCODONE/ACETAMOPHEN 5/325MG TAB PO PRN ×2 (05:50→15:17)
[2019-06-25] MEDS: PIPERACILLIN/TAZOBACTAM 3.375 GM in DEXTROSE 5% 100 ML IV SCH ×3 (05:51→21:27)
[2019-06-25] MEDS: HYDROmorphone INJ 0.5 MG/0.5 ML SYR IV PRN ×3 (06:06→18:52)
[2019-06-25 06:19] LABS: BUN Creatinine Ratio 15.3 (10-20); Calcium 8.1 mg/dl (8.5-10.1); Creatinine Clr Calc Pharmacy 36.4 ml/min; Est GFR (African American) 66.4; Est GFR (Non-African American) 57.3; Potassium 4.7 mmol/L (3.5-5.1)
[2019-06-25 06:38] LABS: Phosphorus 1.4 mg/dl (2.5-4.9)
[2019-06-25] MEDS ORDERED: SODIUM PHOSPHATE 3 MMOL/1 ML 5 ML VIAL IV STA (07:20)
[2019-06-25] MEDS ORDERED: SODIUM PHOSPHATE 3 MMOL/1 ML INFUSION IV STA (07:32)
--- NOTE | 2019-06-25 07:43 | Surgery Progress Note ---
Date of Service June 25, 2019 Assessment & Plan (1) S/P laparoscopic cholecystectomy: doing well this AM drain with slowing bloody drainage Hgb stable at 10 feeding tube out once taking po well Subjective More alert this AM no appetite some ambulation pain controlled Review of Systems Constitutional: no fever and no chills Respiratory: no dyspnea Cardiovascular: no chest pain Gastrointestinal: no abdominal pain, no nausea and no vomiting Musculoskeletal: no back pain Physical Exam Constitutional: WD/WN, vitals as above Neck: normal visual inspection Respiratory: normal respiratory effort, lungs clear to auscultation Cardiovascular: RRR, no murmur, no edema Gastrointestinal (Abdomen): Inspection/Auscultation: abdomen normal to inspection and normal bowel sounds; abdomen not distended Percussion/Palpation: + abdomen tender (mild); no guarding Skin: no rashes, warm and dry Psychiatric: Orientation: alert and oriented x 3 Results & Data Vital Signs (Past 12 Hours) Vital Signs Temp Pulse Pulse Resp BP Pulse Ox 06/25/19 07:02 36.7 C 104 H 18 107/51 L 98 06/25/19 03:05 36.4 C L 77 16 124/75 90 06/24/19 22:58 36.7 C 100 H 16 100/61 95 06/24/19 22:25 94 H
[2019-06-25] MEDS ORDERED: SODIUM PHOSPHATE 21 MMOL in SODIUM CHLORIDE 0.9% 500 ML IV ONE ×2 (08:00→08:30)
[2019-06-25] MEDS: FLUTICASONE/VILANTEROL 100/25MCG 14 PUFFS/INHALER INH SCH (08:26)
[2019-06-25] MEDS: DOCUSATE SODIUM SYRUP 100 MG/10 ML UDC PO SCH ×2 (08:26→21:32)
[2019-06-25] MEDS: PANTOprazole 40 MG TAB PO SCH (08:27)
[2019-06-25] MEDS: dilTIAZem HCL 30 MG TAB PO SCH ×3 (08:27→21:28)
[2019-06-25] MEDS: PEPTAMEN 1.5 CAL 1,000 ML BAG PO SCH (12:28)
--- NOTE | 2019-06-25 18:54 | Hospitalist Progress Note ---
Date of Service June 25, 2019 Assessment & Plan (1) Biliary colic: Likely acute cholecystitis vs gallstones which may have passed considering improving LFT Liver ultrasound did show mild gallbladder wall thickening, trace pericholecystic fluid and patient does have Krishna sign S/P Lap Cholecystectomy on 06/[address] Charlton S/P Endoscopic Retrograde Cholangiopancreatogram, Endoscopic Ultrasonography Upper, Esophagogastroduodenoscopy on 06/20 performed by Allyssa Clark MD Postoperative hemorrhage for cystic artery bleeding. Continue IV Zosyn for pain S/P extubation day 3 Continue Enteral nutrition Will start on clear liquid diet (2) Hypotension: BP improved Pressor was discontinued Continue monitor BP Resolved (3) CHF exacerbation: Patient had good diuresis with IV Lasix on admission with creatinine bump Has chronic pleural effusion Lasix on hold due to Low BP and elevated creatinine Monitor BMP (4) Adenocarcinoma, lung: Pt stated she is in remission, however, there is an increase in the spiculated RUL nodule on the CT image today which has changed from imaging done last year. Will need to be reviewed by her PCP/lung specialist outpatient (5) Tachy-rex syndrome: (6) Chronic atrial fibrillation: Afib with RVR last night with HR in the 150's Received Cardizem IV 10mg and 15mg respectively Currently rate controlled Metoprolol increased to 50mg q8h Cardiology on board cardizem 30mg TID resumed Eliquis on hold due to recent surgery, will discuss with surgery if safe to start Eliquis in am Will add low dose of lopressor 2.5mg IV prn for HR above 120 (7) Anemia: Hgb slightly dropped to 9.5 (Received Total 3 unit PRBC so far during hospital course) Monitor CBC Hypophosphatemia Phosphate 1.7 today Phos replaced Monitor electrolytes (8) DVT prophylaxis: Eliquis on hold in preparation for surgery Heparin SQ on hold due to drop in hgb and bleeding from surgical dressing Code Status Full Code Admission and Anticipated Discharge Date Admission Date: June 16, 2019 Subjective Pt was seen and examined Sitting in chair with no distress Pt said that she feels a little better She said that pain is controlled Denies any chest pain, palpitation and SOB Physical Exam Physical Exam: General- No acute distress Head- atraumatic Eyes- PERRL, EOMI, ENT- oropharynx clear Neck- supple, no JVD Lungs- clear to auscultation Heart- irregular rhythm; no murmur Abdomen- normal bowel sounds, soft, nontender Extremities- no calf tenderness Neuro- alert, oriented x 3; PERRL, EOMI; no facial palsy; no dysarthria Skin- warm & dry Results & Data ([facility]) Vital Signs (Past 12 Hours) Vital Signs Temp Pulse Pulse Resp BP Pulse Ox 06/25/19 16:00 88 06/25/19 15:20 36.4 C L 103 H 20 121/65 91 06/25/19 11:27 36.3 C L 105 H 16 108/70 98 06/25/19 08:00 117 H 06/25/19 07:02 36.7 C 104 H 18 107/51 L 98 (1) CHF exacerbation Heart failure type: unspecified Qualified Code(s): I50.9 - Heart failure, unspecified (2) Anemia Anemia type: unspecified type Qualified Code(s): D64.9 - Anemia, unspecified
[2019-06-25] MEDS: LORazepam 0.5 MG TAB PO PRN (21:30)
[2019-06-26] MEDS: HYDROCODONE/ACETAMOPHEN 5/325MG TAB PO PRN ×3 (05:38→18:03)
[2019-06-26] MEDS: METOPROLOL TARTRATE 50 MG TAB PO SCH (05:39)
[2019-06-26] MEDS: PIPERACILLIN/TAZOBACTAM 3.375 GM in DEXTROSE 5% 100 ML IV SCH ×3 (05:44→21:00)
--- NOTE | 2019-06-26 06:54 | Surgery Progress Note ---
Date of Service June 26, 2019 Results & Data Vital Signs (Past 12 Hours) Vital Signs Temp Pulse Pulse Resp BP Pulse Ox 06/26/19 03:47 36.6 C 117 H 18 134/63 98 06/25/19 23:15 36.5 C 91 H 18 120/64 99 06/25/19 22:20 90 06/25/19 19:04 36.9 C 129 H 20 122/68 100 PG Care Time/CCT Total # of Minutes Spent Total Time Spent with Patient: Total time spent is greater than 50% in coordination of care (as documented) at patient's floor/unit and/or counseling patient: Coding
--- NOTE | 2019-06-26 06:54 | Surgery Progress Note ---
Date of Service June 26, 2019 Assessment & Plan (1) Postoperative haemorrhage: sitting in chair, comfortable H/H stable, SC hep on hold consider starting Eliquis today- monitor closely for bleeding trying po, feeding tube in place will need extended care leave drains for now Results & Data Vital Signs (Past 12 Hours) Vital Signs Temp Pulse Pulse Resp BP Pulse Ox 06/26/19 03:47 36.6 C 117 H 18 134/63 98 06/25/19 23:15 36.5 C 91 H 18 120/64 99 06/25/19 22:20 90 06/25/19 19:04 36.9 C 129 H 20 122/68 100 PG Care Time/CCT Total # of Minutes Spent Total Time Spent with Patient: Total time spent is greater than 50% in coordination of care (as documented) at patient's floor/unit and/or counseling patient: Coding Level of Care Code None Diagnoses Postoperative haemorrhage
[2019-06-26] MEDS: FLUTICASONE/VILANTEROL 100/25MCG 14 PUFFS/INHALER INH SCH (08:02)
[2019-06-26] MEDS: DOCUSATE SODIUM SYRUP 100 MG/10 ML UDC PO SCH ×2 (08:02→21:02)
[2019-06-26] MEDS: HYDROmorphone INJ 0.5 MG/0.5 ML SYR IV PRN (08:02)
[2019-06-26] MEDS: dilTIAZem HCL 30 MG TAB PO SCH (08:03)
[2019-06-26] MEDS: PANTOprazole 40 MG TAB PO SCH (08:03)
[2019-06-26 10:01] LABS: BUN Creatinine Ratio 20.1 (10-20); Calcium 8.4 mg/dl (8.5-10.1); Creatinine Clr Calc Pharmacy 38.7 ml/min; Est GFR (African American) 72.9; Est GFR (Non-African American) 62.9; Phosphorus 1.8 mg/dl (2.5-4.9); Potassium 4.6 mmol/L (3.5-5.1)
--- NOTE | 2019-06-26 13:41 | Cardiology Progress Note ---
Date of Service June 26, 2019 Assessment & Plan (1) Acute cholecystitis: s/p ERCP and Lap ning with re-exploration Slowly improving postsurgically. Now receiving NG feeds bowels active (2) Chronic kidney disease (CKD): Renal function appears stable. (3) Tachy-rex syndrome: Normally functioning pacemaker in place with atrial fibrillation rates mildly elevated as per in past in part secondary to acute complaints and lapse in medications Pacemaker currently not being used due to elevated heart rate and demand device Pacer lead interrogation last 03/15/2019 with normal function and excellent battery life (4) Chronic atrial fibrillation: Plan is for patient to resume oral medications today. We will resume Eliquis as agreed with by surgery We will restart her outpatient medical regimen of metoprolol tartrate 100 mg twice daily along with diltiazem CD 360 mg daily. (5) Recurrent pleural effusion on right: Stable Past effusions have been managed with repeat thoracenteses Currently compensated without complaint We will continue to follow clinically for now (6) CAD (coronary artery disease): given hx of CAD along with afib and rvr: HGB should be maintained above 9 Subjective Patient seen and examined out of bed in chair. States that she is feeling much better now. Patient is not confused today and states that she feels well. Denies any cardiac complaints of chest pain, shortness of breath, palpitations, lightheadedness, dizziness or syncope. Telemetry reviewed: Atrial fibrillation with variable rates at times with rapid ventricular response. Review of Systems Review of Systems: All systems reviewed & are unremarkable except as noted in HPI & below Physical Exam Physical Exam: General: Awake, alert and oriented x 3. No acute distress. NG tube in place. HEENT: Normocephalic, atraumatic. Pupils equal, round and reactive to light and accommodation. Extraocular muscles are intact. Anicteric sclera. Moist mucous membranes. Neck: No JVD. No bruit. Cardiovascular: irregularly irregular, unable to appreciate murmur, rub or gallop. Pulmonary: Clear to auscultation bilaterally. No rales, rhonchi, or wheezing. Abdomen: Bowel sounds x 4, soft. No rebound, guarding or tenderness. No organomegaly. Extremities: No clubbing, cyanosis or edema. +2 pedal pulses bilaterally. Skin: Warm and dry. Results & Data Vital Signs (Past 12 Hours) Vital Signs Temp Pulse Resp BP Pulse Ox 06/26/19 10:59 36.7 C 109 H 20 110/53 L 98 06/26/19 07:00 36.9 C 120 H 19 97/65 L 99 06/26/19 03:47 36.6 C 117 H 18 134/63 98
[2019-06-26] MEDS: dilTIAZem HCL 180 MG CAPCR PO SCH (14:47)
[2019-06-26] MEDS: APIXABAN 2.5 MG TAB PO SCH ×2 (14:47→21:02)
--- NOTE | 2019-06-26 18:47 | Hospitalist Progress Note ---
Date of Service June 26, 2019 Assessment & Plan (1) Biliary colic: Likely acute cholecystitis vs gallstones which may have passed considering improving LFT Liver ultrasound did show mild gallbladder wall thickening, trace pericholecystic fluid and patient does have Krishna sign S/P Lap Cholecystectomy on 06/[address] Charlton S/P Endoscopic Retrograde Cholangiopancreatogram, Endoscopic Ultrasonography Upper, Esophagogastroduodenoscopy on 06/20 performed by Allyssa Clark MD Postoperative hemorrhage for cystic artery bleeding. Continue IV Zosyn for pain S/P extubation day 4 Surgery on board and recommended to discontinue feeding tube since pt tolerated oral Tolerated Full liquid diet (2) Hypotension: BP improved Pressor was discontinued Continue monitor BP Resolved (3) CHF exacerbation: Patient had good diuresis with IV Lasix on admission with creatinine bump Has chronic pleural effusion Lasix on hold due to Low BP and elevated creatinine Monitor BMP (4) Adenocarcinoma, lung: Pt stated she is in remission, however, there is an increase in the spiculated RUL nodule on the CT image today which has changed from imaging done last year. Will need to be reviewed by her PCP/lung specialist outpatient (5) Tachy-rex syndrome: (6) Chronic atrial fibrillation: Afib with RVR last night with HR in the 150's Received Cardizem IV 10mg and 15mg respectively Currently rate controlled Metoprolol increased to 50mg q8h Cardiology on board Restarted on home dose cardizem 360mg and metoprolol 100mg BID OK from surgery to resume Alonzo Will add low dose of lopressor 2.5mg IV prn for HR above 120 Continue monitor (7) Anemia: Hgb slightly dropped to 9.5 (Received Total 3 unit PRBC so far during hospital course) Monitor CBC Hypophosphatemia Phosphate 1.8 today Phos replaced Monitor electrolytes (8) DVT prophylaxis: Alonzo resumed Code Status Full Code Admission and Anticipated Discharge Date Admission Date: June 16, 2019 Subjective Pt was seen and examined Sitting in chair with no distress Pt said that she feels ok She said that pain improves Denies any chest pain, palpitation and SOB Physical Exam Physical Exam: General- No acute distress Head- atraumatic Eyes- PERRL, EOMI, ENT- oropharynx clear Neck- supple, no JVD Lungs- clear to auscultation Heart- irregular rhythm; no murmur Abdomen- normal bowel sounds, soft, nontender Extremities- no calf tenderness Neuro- alert, oriented x 3; PERRL, EOMI; no facial palsy; no dysarthria Skin- warm & dry Results & Data ([facility]) Vital Signs (Past 12 Hours) Vital Signs Temp Pulse Pulse Resp BP Pulse Ox 06/26/19 15:02 128 H 06/26/19 14:50 37.1 C 145 H 20 111/70 98 06/26/19 10:59 36.7 C 109 H 20 110/53 L 98 06/26/19 07:00 36.9 C 120 H 19 97/65 L 99 (1) CHF exacerbation Heart failure type: unspecified Qualified Code(s): I50.9 - Heart failure, unspecified (2) Anemia Anemia type: unspecified type Qualified Code(s): D64.9 - Anemia, unspecified
[2019-06-26] MEDS: LORazepam 0.5 MG TAB PO PRN (21:00)
[2019-06-26] MEDS: METOPROLOL TARTRATE 100 MG TAB PO SCH (21:01)
[2019-06-27] MEDS: PIPERACILLIN/TAZOBACTAM 3.375 GM in DEXTROSE 5% 100 ML IV SCH ×3 (06:33→18:05)
--- NOTE | 2019-06-27 07:24 | Communication Note ---
Date of Service: June 27, 2019 Stroke alert called at 7:20 AM. Patient noted to to have sudden onset aphasia. Patient noted to be well around 6:15 AM as per RN account. AP Sudden onset aphasia Rule out stroke Stat CT head Hold Eliquis for now ICU holding until further disposition Dr. Cuevas to follow patient status.
--- NOTE | 2019-06-27 07:36 | CT Scan Report ---
CT head/brain wo con CLINICAL HISTORY: 79 years-old Female presenting with stroke alert, history of non-small cell lung ca ncer. TECHNIQUE: Multidetector CT imaging of the head was performed without the use of intravenous contrast . IV contrast: None. One or more dose lowering techniques were used consistent with the principles of ALARA (as low as reasonably achievable), including automatic exposure control, mA or kV adjustment t o individual patient size, and/or use of iterative reconstruction. COMPARISON: None. CT DOSE (mGy.cm): The estimated cumulative dose is 537.48 mGy.cm. 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 Proportional ventricular and sulcal prominence, likely age-related parenchymal volume loss. No hemorr holley. Periventricular and subcortical white matter hypoattenuation, nonspecific but likely indicative of chronic small vessel ischemic change. No acute territorial infarct. No mass effect or midline david ft. No extra-axial fluid collection. Paranasal sinuses and mastoid air cells clear. Calvarium intact. IMPRESSION: 1. Chronic small vessel ischemic change. No acute intracranial abnormality. ACT 112: Negative or not required by law. Electronically signed by: John Silverman M.D. 06/27/2019 7:35 AM
[2019-06-27 07:37] LABS: Hematocrit (blood only) 29.3 % (37-47); Hemoglobin 9.3 g/dL (12.0-16.0); Mean Corpuscular Hemoglobin 30.9 pg (25-34); Mean Corpuscular Hgb Conc 31.7 g/dL (32-36); Mean Corpuscular Volume 97.3 fL (80-100); Mean Platelet Volume 9.6 fL (7.4-10.4); Platelet Count 180 K/uL (130-400); RDW Coefficient of Variation 16.6 % (11.5-14.5); RDW Standard Deviation 54.8 fL (36.4-46.3); Red Blood Count 3.01 M/uL (4.2-5.4); White Blood Count 7.25 K/uL (4.8-10.8)
[2019-06-27 08:08] LABS: BUN Creatinine Ratio 21.2 (10-20); Calcium 8.6 mg/dl (8.5-10.1); Est GFR (African American) 68.2; Est GFR (Non-African American) 58.8; Potassium 4.4 mmol/L (3.5-5.1)
[2019-06-27] MEDS ORDERED: OPTIRAY 320 125ml IV PRN (08:08)
[2019-06-27 08:09] LABS: Phosphorus 2.4 mg/dl (2.5-4.9)
[2019-06-27] MEDS ORDERED: APIXABAN 5 MG TABLET PO ONE (08:43)
[2019-06-27] MEDS ORDERED: SODIUM CHLORIDE 0.9% 500 ML IV SCH (08:45)
--- NOTE | 2019-06-27 08:46 | CT Scan Report ---
CT ANGIOGRAM OF THE BRAIN; CT ANGIOGRAM OF THE NECK CLINICAL HISTORY: Strokelike symptoms. COMPARISON STUDY: Unenhanced CT of the brain dated 06/27/2019. PET/CT dated 08/24/2018. TECHNIQUE: Following the IV administration of 120 of Optiray 320, CT angiogram of the head and neck w as performed from the aortic arch to the vertex. Images are reviewed in the axial, sagittal, and iveth nal planes. 3-D MIPS images are created and assessed. IV contrast was administered without complicati on. All measurements were calculated based on NASCET criteria. A dose lowering technique was utilize d adhering to the principles of ALARA. CT DOSE: 517.07 mGy.cm FINDINGS: Brain parenchyma: There is age-related involutional change noting moderate to advanced subcortical an d periventricular microangiopathic disease. There is no hemorrhage, mass effect, or evidence of acute territorial ischemia by CT criteria. There is no evidence of enhancing mass lesion on the angiogram phase images. The ventricles, sulci, and cisterns are prominent secondary to involutional change. Gra y-white matter differentiation is preserved. No extra-axial fluid collection is seen. Thoracic aorta: There is atherosclerotic calcification of the thoracic aorta. Visualized portions of the thoracic aorta are normal in caliber. The aortic arch demonstrates standard 3-vessel anatomy. Right carotid arterial system: The right common carotid artery is widely patent, as are the right int ernal and external carotid arteries. Calcified plaque is noted in the carotid bulb. Left carotid arterial system: The left common carotid artery is widely patent, as are the left general internal medicine doctor al and external carotid arteries. Calcified plaque is noted in the carotid bulb. Vertebral arteries: The vertebral arteries are widely patent bilaterally and codominant. Subclavian arteries: Widely patent bilaterally. Intracranial vasculature: There is atherosclerotic calcification of the cavernous carotid and vertebr al arteries. The internal carotid arteries are patent at the skull base, as are the anterior and midd le cerebral arteries bilaterally. The vertebrobasilar system and posterior cerebral arteries are wide ly patent. The vertebral arteries are codominant. There is no aneurysm, high-grade stenosis, or focal vessel cut off seen throughout the intracranial circulation. Jugular veins: Patent bilaterally. Dural sinuses: Patent. Lung apices: Emphysematous change is noted. There is a spiculated 2.3 cm right upper lobe pulmonary n odule. A right pleural effusion is partially imaged. There are small peripheral filling defects withi n a branch of the left upper lobe pulmonary artery seen on images #48 and #52 Soft tissues: The visualized pharyngeal soft tissues are normal in appearance noting angiographic pha se technique. The oropharyngeal airway appears widely patent. There is a 1.2 cm low-attenuation nodul e in the right lobe of the thyroid gland. The salivary glands are normal in appearance. No cervical l ymphadenopathy is seen. Skeletal structures: The skeletal structures are osteopenic. The calvarium appears intact. The cervic al spine is maintained noting multilevel spondylosis. No lytic or blastic lesion is seen. Orbits: The bony orbits are intact. Orbital contents are normal in appearance noting bilateral ocular lens implants. Sinuses and mastoids: The paranasal sinuses are clear. The mastoid air cells are well pneumatized. IMPRESSION: 1. There is no hemorrhage, mass effect, or evidence of acute territorial ischemia by CT criteria noti ng angiographic phase technique. 2. Unremarkable CT angiogram of the brain. 3. Unremarkable CT urogram of the neck. 4. There are peripheral filling defects within a branch of the left upper lobe pulmonary artery. This is consistent with age indeterminant but likely chronic pulmonary embolus. 5. A spiculated upper lobe pulmonary lesion has increased in size from the 08/24/2018 PET examination. 6. A right pleural effusion is partially imaged. 7. Additional findings as above. ACT 112: Negative or not required by law. Electronically signed by: Michele Kelley M.D. 06/27/2019 8:45 AM
[2019-06-27] MEDS: MAGNESIUM SULFATE / D5W 1 GM/100 ML BAG IV SCH ×2 (08:59→10:13)
--- NOTE | 2019-06-27 08:59 | Hospitalist Progress Note ---
Date of Service June 27, 2019 Assessment & Plan (1) Biliary colic: Likely acute cholecystitis vs gallstones which may have passed considering improving LFT Liver ultrasound did show mild gallbladder wall thickening, trace pericholecystic fluid and patient does have Krishna sign S/P Lap Cholecystectomy on 06/[address] Charlton S/P Endoscopic Retrograde Cholangiopancreatogram, Endoscopic Ultrasonography Upper, Esophagogastroduodenoscopy on 06/20 performed by Allyssa Clark MD Postoperative hemorrhage for cystic artery bleeding. Continue IV Zosyn for pain S/P extubation day 5 Surgery on board and recommended to discontinue feeding tube since pt tolerated oral Tolerated Full liquid diet (2) Stroke-like symptoms: Stroke alert called after patient was found non verbal with right facial droop Stat CT head done showed no acute intracranial abnormality Case discussed with Dr. Marshall from [place] neuro stroke tele that recommended to get a stat CTA head and neck CTA head and Neck showed no hemorrhage, mass effect, or evidence of acute territorial ischemia by CT criteria noting angiographic phase technique. Unremarkable CT urogram of the neck. Dr Soares said no intervention needed. Recommended to continue Eliquis, magnesium 2g IV to keep mg between 2.5 to 3, and a little IVF to help with the blood pressure Dr. Marshall recommended to repeat CT head after 24 hrs to r/o any intracranial abnormality and EEG to r/o any seizure Dr. Marshall said no intervention needed and no need to transfer since pt can be monitored here ([facility]) MRI odered but pt will not be able to get it done until she is able to talk in case she is feeling something in her chest during the MRI that she can tell the staff Neuro Consult Speech was seen and was placed on clear liquid diet PT/OT eval Continue Neuro check I informed her son Viral over the phone and Friend Mariana who is the second contact was updated at bedside Dr. Marshall also called the son and agreed with the plan to continue monitor here since no indication for any intervention at this time (3) Hypotension: BP improved Pressor was discontinued Continue monitor BP Resolved (4) CHF exacerbation: Patient had good diuresis with IV Lasix on admission with creatinine bump Has chronic pleural effusion Lasix on hold due to Low BP and elevated creatinine Monitor BMP (5) Adenocarcinoma, lung: Pt stated she is in remission, however, there is an increase in the spiculated RUL nodule on the CT image today which has changed from imaging done last year. Will need to be reviewed by her PCP/lung specialist outpatient (6) Tachy-rex syndrome: (7) Chronic atrial fibrillation: Afib with RVR this morning with HR in the 130'S Case discussed with cardiology that recommended to hold the metoprolol due to acute stroke like symptoms and wants to keep BP elevated cardiology recommended to give the Cardizem for now Continue Eliquis Echo done on 06/18 shows hypokinesis of the inferior posterior basal wall. Otherwise normal to hyper dynamic wall segment and function. Ejection fraction 60 to 65% If rate increases, will consider to give a low dose IV cardizem x1 Continue Monitor in tele monitor (8) Pulmonary lesion: CT showed a spiculated upper lobe pulmonary lesion has increased in size from the 08/24/2018 PET examination. Will need to follow up (9) Anemia: Hgb dropped to 9.3 (Received Total 3 unit PRBC so far during hospital course) Monitor CBC Hypophosphatemia Phosphate 2.3 today Phos replaced Monitor electrolytes (10) DVT prophylaxis: Continue Eliquis Code Status Full Code Admission and Anticipated Discharge Date Admission Date: June 16, 2019 Subjective Pt was seen and examined. Lying in bed with no distress stroke alert called after pt was found around 6:30 with expressive aphasia and right side facial droop Yesterday when i saw the patient she was talking This morning when i tried to talk to her, all she did was smile seems to follow simple commands I spoke to Son that said that she is very dependent Patient care for her disabled son [facility] tele monitor chery was contacted Case discussed with Dr. Marshall at [facility] for the stroke alert Son was notified and dr. 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
[2019-06-27] MEDS ORDERED: MAGNESIUM SULFATE / D5W 1 GM/100 ML BAG IV SCH (09:00)
[2019-06-27] MEDS ORDERED: PHARMACIST DISCHARGE MED REC CONSULT PRN (09:07)
[2019-06-27] MEDS ORDERED: SODIUM PHOSPHATE 3 MMOL/1 ML INFUSION IV STA (09:41)
[2019-06-27] MEDS: dilTIAZem HCL 180 MG CAPCR PO SCH (09:52)
[2019-06-27] MEDS: METOPROLOL TARTRATE 100 MG TAB PO SCH (09:55)
[2019-06-27] MEDS ORDERED: SODIUM PHOSPHATE 15 MMOL in SODIUM CHLORIDE 0.9% 250 ML IV ONE (10:00)
[2019-06-27] MEDS: FLUTICASONE/VILANTEROL 100/25MCG 14 PUFFS/INHALER INH SCH (10:08)
[2019-06-27] MEDS: PANTOprazole 40 MG TAB PO SCH ×2 (10:13→10:18)
[2019-06-27] MEDS: DOCUSATE SODIUM SYRUP 100 MG/10 ML UDC PO SCH ×3 (10:13→20:47)
[2019-06-27] MEDS ORDERED: APIXABAN 2.5 MG TAB PO STA (10:50)
--- NOTE | 2019-06-27 12:52 | Cardiology Progress Note ---
Date of Service June 27, 2019 Assessment & Plan (1) Acute cholecystitis: s/p ERCP and Lap ning with re-exploration Slowly improving postsurgically. Now receiving NG feeds bowels active (2) Chronic kidney disease (CKD): Renal function appears stable. (3) Tachy-rex syndrome: Normally functioning pacemaker in place with atrial fibrillation rates mildly elevated as per in past in part secondary to acute complaints and lapse in medications Pacemaker currently not being used due to elevated heart rate and demand device Pacer lead interrogation last 03/15/2019 with normal function and excellent battery life (4) Chronic atrial fibrillation: Outpatient oral regimen resumed on 06/26/2019. Currently not able to take oral medications will change Cardizem and metoprolol to IV as needed for continued rate control. Will defer anticoagulation to neurology recommendation from the stroke center. (5) Recurrent pleural effusion on right: Stable Past effusions have been managed with repeat thoracenteses Currently compensated without complaint We will continue to follow clinically for now (6) CAD (coronary artery disease): given hx of CAD along with afib and rvr: HGB should be maintained above 9 Subjective Patient seen and examined status post stroke alert. Patient is now nonverbal but does recognize me and reaches for my hand. Not following any meaningful directions but does not appear in any acute distress. Telemetry reviewed: Atrial fibrillation with mild rapid ventricular response. Review of Systems Review of Systems: Unobtainable due to cognitive status Physical Exam Physical Exam: General: Nonverbal but awake. No acute distress. HEENT: Normocephalic, atraumatic. Pupils equal, round and reactive to light and accommodation. Extraocular muscles are intact. Anicteric sclera. Moist mucous membranes. Neck: No JVD. No bruit. Cardiovascular: irregularly irregular, unable to appreciate murmur, rub or gallop. Pulmonary: Clear to auscultation bilaterally. No rales, rhonchi, or wheezing. Abdomen: Bowel sounds x 4, soft. No rebound, guarding or tenderness. No organomegaly. Extremities: No clubbing, cyanosis or edema. +2 pedal pulses bilaterally. Skin: Warm and dry. Results & Data Vital Signs (Past 12 Hours) Vital Signs Temp Pulse Pulse Resp BP Pulse Ox 06/27/19 11:22 36.9 C 100 H 16 116/66 96 06/27/19 09:25 134 H 18 129/73 97 06/27/19 07:13 36.7 C 92 H 22 112/59 L 94 06/27/19 07:10 82 06/27/19 03:29 37 C 92 H 16 124/75 94
--- NOTE | 2019-06-27 14:08 | Neurology Consultation ---
Date of Consultation June 27, 2019 Assessment & Plan (1) Stroke-like symptoms: 1. continue Eliquis 2.5 BID 2. would repeat the CT head tomorrow am 3. CTA head/neck no occlusion 4. optimized HTN, HLD, DM LDL <70 consider patient age 5. PT/OT speech for discharge needs 6. presumed stroke of speech center MRI would likely confirm but patient has pacemaker and unable to have now (2) Chronic atrial fibrillation: Supervising Physician Co-Signing Physician Notes I have seen and discussed above patient with Dr Obie Johnson, neurology I have briefly examined this woman reviewed her case and discussed the above recommendations and plan with Alea Abreu PA-C I agree that this is most likely an embolic event involving the left hemisphere producing a dense aphasia, with minimal motor deficits involving the right face and arm with the exception of a very subtle right upper motor neuron facial asymmetry without gaze preference clear field cut or other abnormalities and suspect that lies in the parietal lobe but suspect furthermore we may not ever be able to document this accurately by CT scan technology. We are going to recommend a repeat CT scan tomorrow but to some degree this is academic as treatment is going to consist of restarting the Eliquis which is already been done, speech therapy and perhaps some physical therapy although looking at her status now is does not seem to be a significant degree of motor weakness We will check back tomorrow review the imaging studies but will probably sign off the case relatively soon as at this point there is no whole lot more neurology would recommend other than what is already been done i.e. restarting the Eliquis Obie Johnson MD History of Present Illness Reason for Consultation: stroke like symptoms Requesting Physician: Jose Cuevas MD Attending Physician: Jose Cuevas MD History of Present Illness Toña is a 79 year old female who presented 06/20/2019 with pancreatitis secondary to choledocholithiasis status post ERCP with laparoscopic cholecystectomy with postoperative bleeding requiring exploratory laparoscopy, notable for cystic artery bleed which was successfully ligated. She was down graded to telemetry and last night she had an episode of slurred speech, right facial droop. Her sister and brother in law are in the room and states that she has not been very active since her diagnosis of lung cancer and status post chemo therapy. She was offered chemotherapy for a recurrence which she has declined treatment due to the extreme illness and vomiting with previous treatment. She was on Eliquis prior to her surgery for a fib and was restarted last night after the episode of slurred speech and right facial droop. She is currently sleeping and refuses to open her eyes but is understanding her sister when she asked if she wanted to take off her glasses she shakes her head "no". Allergies Allergy/AdvReac Type Severity Reaction Status Date / Time lisinopril Allergy Intermediate RASH Verified 06/16/19 11:45 zolpidem AdvReac Severe hallucinati Verified 06/16/19 11:45 ons Home Medications Home Medications Medication Instructions Recorded Confirmed Type lorazepam 0.5 mg PO HS PRN 04/21/18 06/16/19 History metoprolol tartrate 100 mg PO BID 04/21/18 06/16/19 History pantoprazole 40 mg PO DAILY 04/21/18 06/16/19 History folic acid 1 mg PO DAILY 04/28/18 06/16/19 History nitroglycerin 0.4 mg SUBLINGUAL UD PRN 04/28/18 06/16/19 History Eliquis 2.5 mg PO BID 07/10/18 06/16/19 History aspirin [Aspirin Low Dose] 81 mg PO QAM 07/10/18 06/16/19 History diltiazem HCl 360 mg PO DAILY 07/10/18 06/16/19 History ondansetron HCl [Zofran] 8 mg PO TID PRN 07/10/18 06/16/19 History furosemide 40 mg tablet 40 mg PO BID #30 tab 12/20/18 06/16/19 History iron,carbonyl 65 mg-vitamin C 125 1 tab PO DAILY 12/21/18 06/16/19 History mg tablet,delayed release magnesium oxide 400 mg PO DAILY cap 12/21/18 06/16/19 History nystatin 100,000 unit/gram topical 1 appln TOP BID 12/21/18 06/16/19 History powder trazodone 50 mg tablet 50 mg PO HS 12/21/18 06/16/19 History albuterol sulfate [Ventolin HFA] 2 puff INHALATION QID PRN 12/30/18 06/16/19 History triamcinolone acetonide 0.1 % 1 appln TOP BID 03/28/19 06/16/19 History topical cream megestrol 400 mg/10 mL (40 mg/mL) 200 mg PO BID #240 ml 04/03/19 06/16/19 Rx oral suspension budesonide-formoterol HFA 160 2 puff INHALATION Q12H #10.2 gm 05/11/19 06/16/19 Rx mcg-4.5 mcg/actuation aerosol inhaler docusate sodium 100 mg PO BID 06/16/19 06/16/19 History polyethylene glycol 3350 [Miralax] 17 g PO QAM 06/16/19 06/16/19 History prochlorperazine maleate 10 mg PO Q6H PRN 06/16/19 06/16/19 History [Compazine] Patient History Medical History (Updated 06/27/19 @ 14:16 by Jose Cuevas MD) A-fib (Inactive) Ok to continue Eliquis and restart all AVN blockers Acute on chronic renal failure Anemia CAD (coronary artery disease) Cancer LUNG CANCER S/P RECENT CHEMO (COMPLETED 04/01/18) Chronic obstructive pulmonary disease Diabetes mellitus, type II (Inactive) GERD (gastroesophageal reflux disease) Hiatal hernia Hyperlipidemia Hypertension Myocardial Infarction 1992= MEDICAL MANAGEMENT Osteoarthritis Osteoporosis PNA (pneumonia) (Inactive) Recurrent pleural effusion on right Tachy-rex syndrome s/p permanent pacemaker Volume overload (Inactive) Surgical History History of adenoidectomy History of appendectomy History of arthroscopy RIGHT KNEE History of cardiac cath 1992= NO STENTS History of cataract surgery BILATERAL History of section X4 History of colonoscopy History of hysterectomy JOSE WITH BSO History of lung surgery NAVIGATIONAL BRONCH/EBUS= 11/09/17= GRADE I VIEW, MAC 3, ETT 8.0 AT [facility] History of tonsillectomy History of tooth extraction Family History Grandfather (Paternal) Family hx of colon cancer Social History Preferred Language: Mauritanian Communication Ability: Effective Visual Impairment: No Limitations Statistical Machine Servicer Required: No Beliefs That Will Affect Care: None marital status: Current Living Situation: Family Current Living Situation Comment: pt also has a caregiver come to her home Other Information That Helps Us Care for You: No Feels Safe at Home: Yes Safety Concerns: Feels Safe At This Time Smoking Status: Never smoker Cigarettes Per Day: 10 ; Do You Dip or Chew Tobacco: No ; Second Hand Exposure: No ; Hx Alcohol Use: No Hx Substance Use: No Physical Exam Physical Exam: Physical Exam: Constitutional: appearance over nourished, ill appearing Ears, Nose, Mouth and Throat: mucous membranes moist, no injection and skin normal, eyes normal Cardiovascular: irregular irregular Respiratory: course breath sounds Musculoskeletal: no peripheral edema Skin: no stigmata of neurocutaneous disease noted and normal and intact Eyes: equal reactive NEUROLOGIC EXAMINATION: Mental status: lethargic Cranial Nerves flattening nasolabial fold right Reflexes: brisk reflexes, down going toes Gait/Stance: Posture lying in bed Strength: unable to test due to patient cooperation Results & Data Vital Signs (Past 12 Hours) Vital Signs Temp Pulse Pulse Resp BP Pulse Ox 06/27/19 11:22 36.9 C 100 H 16 116/66 96 06/27/19 09:25 134 H 18 129/73 97 06/27/19 07:13 36.7 C 92 H 22 112/59 L 94 06/27/19 07:10 82 06/27/19 03:29 37 C 92 H 16 124/75 94 Laboratory Results Abnormal lab results 06/26/19 06/26/19 06/27/19 Range/Units 16:01 20:03 07:00 RBC 3.01 L (4.2-5.4) M/uL Hgb 9.3 L (12.0-16.0) g/dL Hct 29.3 L (37-47) % MCHC 31.7 L (32-36) g/dL RDW Std Deviation 54.8 H (36.4-46.3) fL RDW Coeff of Ilya 16.6 H (11.5-14.5) % Chloride (98-107) mmol/L BUN (7-18) mg/dl BUN/Creatinine Ratio (10-20) POC Glucose 111 H 104 H (70-99) mg/dl Phosphorus (2.5-4.9) mg/dl 06/27/19 06/27/19 06/27/19 Range/Units 07:00 07:11 11:35 RBC (4.2-5.4) M/uL Hgb (12.0-16.0) g/dL Hct (37-47) % MCHC (32-36) g/dL RDW Std Deviation (36.4-46.3) fL RDW Coeff of Ilya (11.5-14.5) % Chloride 112 H (98-107) mmol/L BUN 20 H (7-18) mg/dl BUN/Creatinine Ratio 21.2 H (10-20) POC Glucose 108 H 128 H (70-99) mg/dl Phosphorus 2.4 L (2.5-4.9) mg/dl Diagnostic Findings CT head- Chronic small vessel ischemic change. No acute intracranial abnormality. CTA head/neck- There is no hemorrhage, mass effect, or evidence of acute territorial ischemia by CT criteria noting angiographic phase technique. Unremarkable CT angiogram of the brain. Unremarkable CT urogram of the neck. There are peripheral filling defects within a branch of the left upper lobe pulmonary artery. This is consistent with age indeterminant but likely chronic pulmonary embolus. . A spiculated upper lobe pulmonary lesion has increased in size from the 08/24/2018 PET examination. A right pleural effusion is partially imaged.
[2019-06-27] MEDS ORDERED: ACETAMINOPHEN 65 ML IV PRN (18:00)
[2019-06-27] MEDS ORDERED: ACETAMINOPHEN 1,000 MG/100 ML VIAL IV PRN (18:15)
[2019-06-27] MEDS: APIXABAN 2.5 MG TAB PO SCH (20:47)
[2019-06-28] MEDS ORDERED: MAGNESIUM SULFATE / D5W 1 GM/100 ML BAG IV ONE (00:56)
[2019-06-28] MEDS ORDERED: METOPROLOL TARTRATE 1 MG/ML VIAL IV STA (00:56)
[2019-06-28] MEDS ORDERED: ALBUMIN 25% 50 ML IV ONE (00:58)
[2019-06-28 01:33] LABS: Hematocrit (blood only) 29.8 % (37-47); Hemoglobin 9.7 g/dL (12.0-16.0); Mean Corpuscular Hemoglobin 31.4 pg (25-34); Mean Corpuscular Hgb Conc 32.6 g/dL (32-36); Mean Corpuscular Volume 96.4 fL (80-100); Mean Platelet Volume 9.4 fL (7.4-10.4); Platelet Count 221 K/uL (130-400); RDW Coefficient of Variation 16.9 % (11.5-14.5); RDW Standard Deviation 54.1 fL (36.4-46.3); Red Blood Count 3.09 M/uL (4.2-5.4); White Blood Count 7.72 K/uL (4.8-10.8)
[2019-06-28 01:50] LABS: BUN Creatinine Ratio 17.1 (10-20); Calcium 8.5 mg/dl (8.5-10.1); Creatinine Clr Calc Pharmacy 36.6 ml/min; Est GFR (African American) 67.3; Potassium 4.2 mmol/L (3.5-5.1)
[2019-06-28 01:53] LABS: Phosphorus 3.5 mg/dl (2.5-4.9)
[2019-06-28 01:56] LABS: Basophils # (auto) 0.03 K/uL (0-0.2); Basophils % (auto) 0.4 %; Eosinophils % (auto) 1.3 %; Immature Granulocytes # (auto) 0.04 K/uL (0.00-0.02); Immature Granulocytes % (auto) 0.5 %; Lymphocytes # (auto) 1.11 K/uL (1.2-3.4); Lymphocytes % (auto) 14.4 %; Monocytes # (auto) 0.88 K/uL (0.11-0.59); Monocytes % (auto) 11.4 %; Neutrophils # (auto) 5.56 K/uL (1.4-6.5); Polychromasia 1+
[2019-06-28] MEDS ORDERED: dilTIAZem HCl 5 MG/ML 5 ML VIAL IV STA (02:21)
[2019-06-28 02:48] LABS: Magnesium 2.2 mg/dl (1.8-2.4)
[2019-06-28] MEDS: METOPROLOL TARTRATE 1 MG/ML VIAL IV SCH ×2 (06:05→11:58)
[2019-06-28] MEDS: PANTOprazole 40 MG TAB PO SCH (08:32)
[2019-06-28] MEDS: dilTIAZem HCL 180 MG CAPCR PO SCH (08:32)
[2019-06-28] MEDS: FLUTICASONE/VILANTEROL 100/25MCG 14 PUFFS/INHALER INH SCH (08:32)
[2019-06-28] MEDS: APIXABAN 2.5 MG TAB PO SCH ×2 (08:32→19:52)
[2019-06-28] MEDS: DOCUSATE SODIUM SYRUP 100 MG/10 ML UDC PO SCH ×2 (08:32→19:53)
--- NOTE | 2019-06-28 08:43 | Electroencephalogram ---
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 Home Medication List Home Medications Medication Instructions Recorded Confirmed Type lorazepam 0.5 mg PO HS PRN 04/21/18 06/16/19 History metoprolol tartrate 100 mg PO BID 04/21/18 06/16/19 History pantoprazole 40 mg PO DAILY 04/21/18 06/16/19 History folic acid 1 mg PO DAILY 04/28/18 06/16/19 History nitroglycerin 0.4 mg SUBLINGUAL UD PRN 04/28/18 06/16/19 History Eliquis 2.5 mg PO BID 07/10/18 06/16/19 History aspirin [Aspirin Low Dose] 81 mg PO QAM 07/10/18 06/16/19 History diltiazem HCl 360 mg PO DAILY 07/10/18 06/16/19 History ondansetron HCl [Zofran] 8 mg PO TID PRN 07/10/18 06/16/19 History furosemide 40 mg tablet 40 mg PO BID #30 tab 12/20/18 06/16/19 History iron,carbonyl 65 mg-vitamin C 125 1 tab PO DAILY 12/21/18 06/16/19 History mg tablet,delayed release magnesium oxide 400 mg PO DAILY cap 12/21/18 06/16/19 History nystatin 100,000 unit/gram topical 1 appln TOP BID 12/21/18 06/16/19 History powder trazodone 50 mg tablet 50 mg PO HS 12/21/18 06/16/19 History albuterol sulfate [Ventolin HFA] 2 puff INHALATION QID PRN 12/30/18 06/16/19 History triamcinolone acetonide 0.1 % 1 appln TOP BID 03/28/19 06/16/19 History topical cream megestrol 400 mg/10 mL (40 mg/mL) 200 mg PO BID #240 ml 04/03/19 06/16/19 Rx oral suspension budesonide-formoterol HFA 160 2 puff INHALATION Q12H #10.2 gm 05/11/19 06/16/19 Rx mcg-4.5 mcg/actuation aerosol inhaler docusate sodium 100 mg PO BID 06/16/19 06/16/19 History polyethylene glycol 3350 [Miralax] 17 g PO QAM 06/16/19 06/16/19 History prochlorperazine maleate 10 mg PO Q6H PRN 06/16/19 06/16/19 History [Compazine] Inpatient Medication List Hydrocodone Bitart/Acetaminophen (Pacific 5/325) 2 tab PO Q4HWA PRN PRN Reason: Pain Stop: 07/04/19 20:12 Last Admin: 06/26/19 18:03 Dose: 2 tab Documented by: [id number] Admin: 06/26/19 14:01 Dose: 2 tab Documented by: [id number] Admin: 06/26/19 05:38 Dose: 2 tab Documented by: [id number] Admin: 06/25/19 15:17 Dose: 2 tab Documented by: [id number] Admin: 06/25/19 05:50 Dose: 2 tab Documented by: [id number] Admin: 06/24/19 21:39 Dose: 2 tab Documented by: [id number] Admin: 06/24/19 07:56 Dose: 2 tab Documented by: [id number] Apixaban (Eliquis) 2.5 mg PO BID [facility] Stop: 07/26/19 13:59 Last Admin: 06/27/19 20:47 Dose: 2.5 mg Documented by: [id number] Admin: 06/26/19 21:02 Dose: 2.5 mg Documented by: [id number] Admin: 06/26/19 14:47 Dose: 2.5 mg Documented by: [id number] Diltiazem HCl (Cardizem Cd) [facility] [place] Stop: 07/26/19 13:59 Last Admin: 06/27/19 09:52 Dose: 360 mg Documented by: [id number] Admin: 06/26/19 14:47 Dose: 360 mg Documented by: [id number] Docusate Sodium (Colace) 100 mg PO BID [facility] Stop: 07/21/19 21:29 Last Admin: 06/27/19 20:47 Dose: Not Given Documented by: [id number] Admin: 06/27/19 10:19 Dose: Not Given Documented by: [id number] Admin: 06/26/19 21:02 Dose: 100 mg Documented by: [id number] Admin: 06/26/19 08:02 Dose: 100 mg Documented by: [id number] Admin: 06/25/19 21:32 Dose: 100 mg Documented by: [id number] Admin: 06/25/19 08:26 Dose: 100 mg Documented by: [id number] Admin: 06/24/19 21:40 Dose: 100 mg Documented by: [id number] Admin: 06/24/19 07:51 Dose: 100 mg Documented by: [id number] Admin: 06/23/19 21:26 Dose: 100 mg Documented by: [id number] Admin: 06/23/19 09:31 Dose: 100 mg Documented by: [id number] Admin: 06/22/19 22:12 Dose: Not Given Documented by: [id number] Admin: 06/22/19 11:38 Dose: Not Given Documented by: [id number] Admin: 06/21/19 22:01 Dose: 100 mg Documented by: [id number] Fluticasone/Vilanterol (Breo Ellipta 100/25 Mcg Inh) 1 puffs INH DAILY ST[facility]AN; Protocol Stop: 07/16/19 16:59 Last Admin: 06/27/19 10:08 Dose: Not Given Documented by: [id number] Admin: 06/26/19 08:02 Dose: 1 puffs Documented by: [id number] Admin: 06/25/19 08:26 Dose: 1 puffs Documented by: [id number] Admin: 06/24/19 07:52 Dose: 1 puffs Documented by: [id number] Admin: 06/23/19 09:31 Dose: 1 puffs Documented by: [id number] Admin: 06/22/19 10:13 Dose: 1 puffs Documented by: [id number] Admin: 06/21/19 11:58 Dose: 1 puffs Documented by: [id number] Admin: 06/20/19 08:40 Dose: 1 puffs Documented by: [id number] Admin: 06/19/19 07:42 Dose: 1 puffs Documented by: [id number] Admin: 06/18/19 08:00 Dose: 1 puffs Documented by: [id number] Admin: 06/17/19 08:26 Dose: 1 puffs Documented by: [id number] Admin: 06/16/19 18:15 Dose: 1 puffs Documented by: [id number] Hydromorphone HCl (Dilaudid) 0.2 - 0.4 mg IV Q3HWA PRN; Protocol PRN Reason: PAIN PER SCALE- SEE PROTOCOL Stop: 07/05/19 10:50 Last Admin: 06/26/19 08:02 Dose: 0.4 mg Documented by: [id number] Admin: 06/25/19 18:52 Dose: 0.4 mg Documented by: [id number] Admin: 06/25/19 12:28 Dose: 0.4 mg Documented by: [id number] Admin: 06/25/19 06:06 Dose: 0.2 mg Documented by: [id number] Admin: 06/24/19 15:38 Dose: 0.4 mg Documented by: [id number] Admin: 06/24/19 07:15 Dose: 0.4 mg Documented by: [id number] Admin: 06/24/19 00:27 Dose: 0.4 mg Documented by: [id number] Admin: 06/23/19 17:27 Dose: 0.2 mg Documented by: [id number] Admin: 06/23/19 11:21 Dose: 0.4 mg Documented by: [id number] Admin: 06/23/19 02:36 Dose: 0.4 mg Documented by: [id number] Admin: 06/22/19 17:52 Dose: 0.4 mg Documented by: [id number] Admin: 06/22/19 10:09 Dose: 0.4 mg Documented by: [id number] Admin: 06/21/19 14:19 Dose: 0.4 mg Documented by: [id number] Admin: 06/21/19 11:06 Dose: 0.4 mg Documented by: [id number] Acetaminophen (Ofirmev) 1,000 mg in 100 mls @ 400 mls/hr IV Q8H PRN; Protocol PRN Reason: Pain Stop: 06/30/19 18:14 Last Infusion: 06/27/19 23:30 Dose: 0 mls/hr Documented by: [id number] Admin: 06/27/19 23:13 Dose: 400 mls/hr Documented by: [id number] Ioversol (Optiray 320 125ml) 120 ml IV ONCE PRN PRN Reason: Interaction Checking Stop: 07/01/19 08:07 Last Admin: 06/27/19 08:09 Dose: 120 ml Documented by: [id number] Lorazepam (Ativan) 0.5 mg PO HS PRN PRN Reason: Sleep Stop: 07/16/19 16:25 Last Admin: 06/26/19 21:00 Dose: 0.5 mg Documented by: [id number] Admin: 06/25/19 21:30 Dose: 0.5 mg Documented by: [id number] Admin: 06/23/19 04:43 Dose: 0.5 mg Documented by: [id number] Admin: 06/19/19 22:15 Dose: 0.5 mg Documented by: [id number] Admin: 06/18/19 21:08 Dose: 0.5 mg Documented by: [id number] Admin: 06/17/19 01:11 Dose: 0.5 mg Documented by: [id number] Metoprolol Tartrate (Lopressor) 100 mg PO BID [facility] Stop: 07/26/19 20:59 Last Admin: 06/27/19 09:55 Dose: Not Given Documented by: [id number] Admin: 06/26/19 21:01 Dose: 100 mg Documented by: [id number] Metoprolol Tartrate (Lopressor) 2.5 mg IV Q6 [facility] Stop: 07/28/19 05:59 Last Admin: 06/28/19 06:05 Dose: 2.5 mg Documented by: [id number] Pantoprazole Sodium (Protonix) 40 mg PO DAILY [facility] Stop: 07/17/19 08:59 Last Admin: 06/27/19 10:18 Dose: Not Given Documented by: [id number] Admin: 06/26/19 08:03 Dose: 40 mg Documented by: [id number] Admin: 06/25/19 08:27 Dose: 40 mg Documented by: [id number] Admin: 06/24/19 07:51 Dose: 40 mg Documented by: [id number] Admin: 06/23/19 09:32 Dose: 40 mg Documented by: [id number] Admin: 06/22/19 11:38 Dose: Not Given Documented by: [id number] Admin: 06/21/19 10:49 Dose: Not Given Documented by: [id number] Admin: 06/20/19 08:43 Dose: 40 mg Documented by: [id number] Admin: 06/19/19 07:44 Dose: 40 mg Documented by: [id number] Admin: 06/18/19 08:01 Dose: 40 mg Documented by: [id number] Admin: 06/17/19 08:27 Dose: 40 mg Documented by: [id number] Discontinued Medications Acetaminophen (Tylenol) 650 mg PO Q4H PRN PRN Reason: Pain or Fever Stop: 06/20/19 20:14 Last Admin: 06/19/19 23:37 Dose: 650 mg Documented by: [id number] Admin: 06/16/19 17:42 Dose: 650 mg Documented by: [id number] Apixaban (Eliquis) 5 mg PO ONE ONE Stop: 06/27/19 08:44 Last Admin: 06/27/19 10:54 Dose: Not Given Documented by: [id number] Apixaban (Eliquis) 2.5 mg PO NOW STA Stop: 06/27/19 10:51 Last Admin: 06/27/19 10:53 Dose: 2.5 mg Documented by: [id number] Bupivacaine HCl (Marcaine 0.5% Mpf) Confirm Administered Dose 30 ml .ROUTE .STK- MED ONE Stop: 06/20/19 13:26 Last Admin: 06/20/19 16:09 Dose: 10 ml Documented by: [id number] Diltiazem HCl (Cardizem) 10 mg IV NOW STA Stop: 06/16/19 11:23 Last Admin: 06/16/19 11:40 Dose: 10 mg Documented by: [id number] Cosigned by: [id number] Diltiazem HCl (Cardizem Cd) 360 mg PO DAILY [facility] Stop: 07/17/19 08:59 Last Admin: 06/22/19 09:46 Dose: Not Given Documented by: [id number] Admin: 06/21/19 10:49 Dose: Not Given Documented by: [id number] Admin: 06/20/19 08:43 Dose: 360 mg Documented by: [id number] Admin: 06/19/19 07:44 Dose: 360 mg Documented by: [id number] Admin: 06/18/19 08:01 Dose: 360 mg Documented by: [id number] Admin: 06/17/19 09:26 Dose: 360 mg Documented by: [id number] Diltiazem HCl (Cardizem) 10 mg IV NOW STA Stop: 06/24/19 05:48 Last Admin: 06/24/19 06:31 Dose: Not Given Documented by: [id number] Diltiazem HCl (Cardizem) 15 mg IV NOW STA Stop: 06/24/19 06:16 Last Admin: 06/24/19 06:38 Dose: 15 mg Documented by: [id number] Cosigned by: [id number] Diltiazem HCl (Cardizem) 30 mg PO TID [facility] Stop: 07/24/19 13:59 Last Admin: 06/26/19 08:03 Dose: 30 mg Documented by: [id number] Admin: 06/25/19 21:28 Dose: 30 mg Documented by: [id number] Admin: 06/25/19 14:04 Dose: 30 mg Documented by: [id number] Admin: 06/25/19 08:27 Dose: 30 mg Documented by: [id number] Admin: 06/24/19 21:40 Dose: 30 mg Documented by: [id number] Admin: 06/24/19 14:37 Dose: 30 mg Documented by: [id number] Diltiazem HCl (Cardizem) 15 mg IV NOW STA Stop: 06/28/19 02:22 Last Admin: 06/28/19 02:46 Dose: 15 mg Documented by: [id number] Cosigned by: [id number] Docusate Sodium (Colace) 100 mg PO BID [facility] Stop: 07/16/19 20:59 Last Admin: 06/21/19 23:26 Dose: Not Given Documented by: [id number] Admin: 06/21/19 10:49 Dose: Not Given Documented by: [id number] Admin: 06/20/19 21:40 Dose: Not Given Documented by: [id number] Admin: 06/20/19 08:41 Dose: 100 mg Documented by: [id number] Admin: 06/19/19 20:30 Dose: 100 mg Documented by: [id number] Admin: 06/19/19 07:43 Dose: 100 mg Documented by: [id number] Admin: 06/18/19 21:00 Dose: 100 mg Documented by: [id number] Admin: 06/18/19 08:01 Dose: 100 mg Documented by: [id number] Admin: 06/17/19 20:16 Dose: 100 mg Documented by: [id number] Admin: 06/17/19 08:28 Dose: 100 mg Documented by: [id number] Admin: 06/16/19 20:16 Dose: 100 mg Documented by: [id number] Enteral Nutritional Formula (Peptamen 1.5 Zheng) 1,000 ml PO UD [facility]; Protocol Stop: 07/22/19 19:59 Last Admin: 06/25/19 12:28 Dose: 1,000 ml Documented by: [id number] Admin: 06/24/19 13:17 Dose: 1,000 ml Documented by: [id number] Admin: 06/22/19 22:28 Dose: 1,000 ml Documented by: [id number] Fentanyl Citrate (Fentanyl Citrate) 25 mcg IV Q5M PRN PRN Reason: PACU Use Only-Pain Stop: 06/20/19 18:27 Last Admin: 06/20/19 16:51 Dose: 25 mcg Documented by: [id number] Admin: 06/20/19 16:30 Dose: 25 mcg Documented by: [id number] Fentanyl Citrate (Fentanyl Citrate) 25 mcg IV Q1H PRN PRN Reason: Moderate Pain (4,5,6) Stop: 07/04/19 20:13 Last Admin: 06/21/19 04:17 Dose: 25 mcg Documented by: [id number] Admin: 06/20/19 23:32 Dose: 25 mcg Documented by: [id number] Admin: 06/20/19 20:48 Dose: 25 mcg Documented by: [id number] Furosemide (Lasix) 40 mg IV NOW STA Stop: 06/16/19 11:23 Last Admin: 06/16/19 11:40 Dose: 40 mg Documented by: [id number] Heparin Sodium (Porcine) (Heparin Sodium (Porcine)) 5,000 units SQ Q8 [facility] Stop: 07/16/19 21:59 Last Admin: 06/19/19 21:34 Dose: Not Given Documented by: [id number] Admin: 06/19/19 14:16 Dose: 5,000 units Documented by: [id number] Cosigned by: [id number] Admin: 06/19/19 05:29 Dose: 5,000 units Documented by: [id number] Cosigned by: [id number] Admin: 06/18/19 21:08 Dose: 5,000 units Documented by: [id number] Cosigned by: [id number] Admin: 06/18/19 12:59 Dose: Not Given Documented by: [id number] Admin: 06/18/19 05:46 Dose: 5,000 units Documented by: [id number] Cosigned by: [id number] Admin: 06/17/19 21:40 Dose: 5,000 units Documented by: [id number] Cosigned by: [id number] Admin: 06/17/19 13:07 Dose: 5,000 units Documented by: [id number] Cosigned by: [id number] Admin: 06/17/19 05:39 Dose: 5,000 units Documented by: [id number] Cosigned by: [id number] Admin: 06/16/19 21:20 Dose: 5,000 units Documented by: [id number] Cosigned by: [id number] Heparin Sodium (Porcine) (Heparin Sodium (Porcine)) 5,000 units SQ Q12 [facility] Stop: 07/21/19 08:59 Last Admin: 06/21/19 09:43 Dose: Not Given Documented by: [id number] Heparin Sodium (Porcine) (Heparin Sodium (Porcine)) 5,000 units SQ Q12 [facility] Stop: 07/21/19 20:59 Last Admin: 06/23/19 21:35 Dose: 5,000 units Documented by: [id number] Cosigned by: [id number] Admin: 06/23/19 09:32 Dose: 5,000 units Documented by: [id number] Cosigned by: [id number] Admin: 06/22/19 22:29 Dose: 5,000 units Documented by: [id number] Cosigned by: [id number] Admin: 06/22/19 10:13 Dose: 5,000 units Documented by: [id number] Cosigned by: [id number] Admin: 06/21/19 21:26 Dose: 5,000 units Documented by: [id number] Cosigned by: [id number] Hydromorphone HCl (Dilaudid) 0.4 mg IV NOW STA Stop: 06/22/19 10:35 Last Admin: 06/22/19 10:41 Dose: 0.4 mg Documented by: [id number] Piperacillin Sod/Tazobactam (Sod 3.375 gm/ Dextrose) 115 mls @ 230 mls/hr IV NOW ONE; Protocol Stop: 06/16/19 17:29 Last Infusion: 06/16/19 18:35 Dose: 0 mls/hr Documented by: [id number] Admin: 06/16/19 17:43 Dose: 230 mls/hr Documented by: [id number] Piperacillin Sod/Tazobactam (Sod 3.375 gm/ Dextrose) 115 mls @ 28.75 mls/hr IV Q8H [facility]; Protocol Stop: 06/26/19 21:59 Last Infusion: 06/18/19 17:19 Dose: 0 mls/hr Documented by: [id number] Admin: 06/18/19 12:59 Dose: 28.8 mls/hr Documented by: [id number] Infusion: 06/18/19 09:49 Dose: 0 mls/hr Documented by: [id number] Admin: 06/18/19 05:45 Dose: 28.8 mls/hr Documented by: [id number] Infusion: 06/18/19 01:43 Dose: 0 mls/hr Documented by: [id number] Admin: 06/17/19 21:40 Dose: 28.8 mls/hr Documented by: [id number] Infusion: 06/17/19 17:19 Dose: 0 mls/hr Documented by: [id number] Admin: 06/17/19 13:03 Dose: 28.8 mls/hr Documented by: [id number] Infusion: 06/17/19 09:42 Dose: 0 mls/hr Documented by: [id number] Admin: 06/17/19 05:37 Dose: 28.8 mls/hr Documented by: [id number] Infusion: 06/17/19 01:37 Dose: 0 mls/hr Documented by: [id number] Admin: 06/16/19 21:22 Dose: 28.8 mls/hr Documented by: [id number] Furosemide 40 mg/ Syringe 4 mls @ 4 mls/min IV [id number] [facility] Stop: 07/17/19 08:59 Last Admin: 06/17/19 08:27 Dose: 4 mls/min Documented by: [id number] Potassium Chloride (K Dwight / Wtr) 10 meq in 100 mls @ 100 mls/hr IV Q1H [facility] Stop: 06/18/19 09:59 Last Infusion: 06/18/19 10:47 Dose: 0 mls/hr Documented by: [id number] Admin: 06/18/19 09:34 Dose: 100 mls/hr Documented by: [id number] Infusion: 06/18/19 08:59 Dose: 100 mls/hr Documented by: [id number] Admin: 06/18/19 07:59 Dose: 100 mls/hr Documented by: [id number] Piperacillin Sod/Tazobactam (Sod 3.375 gm/ Dextrose) 115 mls @ 28.75 mls/hr IV Q12H [facility]; Protocol Stop: 06/24/19 18:00 Last Infusion: 06/24/19 17:47 Dose: 0 mls/hr Documented by: [id number] Admin: 06/24/19 13:15 Dose: 28.8 mls/hr Documented by: [id number] Infusion: 06/24/19 05:55 Dose: 0 mls/hr Documented by: [id number] Admin: 06/24/19 01:52 Dose: 28.8 mls/hr Documented by: [id number] Infusion: 06/23/19 17:15 Dose: 0 mls/hr Documented by: [id number] Admin: 06/23/19 13:15 Dose: 28.8 mls/hr Documented by: [id number] Infusion: 06/23/19 06:07 Dose: 0 mls/hr Documented by: [id number] Admin: 06/23/19 02:07 Dose: 28.8 mls/hr Documented by: [id number] Infusion: 06/22/19 19:11 Dose: 0 mls/hr Documented by: [id number] Admin: 06/22/19 13:52 Dose: 28.8 mls/hr Documented by: [id number] Infusion: 06/22/19 05:35 Dose: 0 mls/hr Documented by: [id number] Admin: 06/22/19 01:35 Dose: 28.8 mls/hr Documented by: [id number] Infusion: 06/21/19 18:20 Dose: 0 mls/hr Documented by: [id number] Admin: 06/21/19 14:19 Dose: 28.8 mls/hr Documented by: [id number] Infusion: 06/21/19 05:44 Dose: 0 mls/hr Documented by: [id number] Admin: 06/21/19 01:41 Dose: 28.8 mls/hr Documented by: [id number] Admin: 06/20/19 21:10 Dose: Not Given Documented by: [id number] Infusion: 06/20/19 05:15 Dose: 0 mls/hr Documented by: [id number] Admin: 06/20/19 01:14 Dose: 28.8 mls/hr Documented by: [id number] Infusion: 06/19/19 18:48 Dose: 0 mls/hr Documented by: [id number] Admin: 06/19/19 14:00 Dose: 28.8 mls/hr Documented by: [id number] Infusion: 06/19/19 07:12 Dose: 0 mls/hr Documented by: [id number] Admin: 06/19/19 03:12 Dose: 28.8 mls/hr Documented by: [id number] Acetaminophen (Ofirmev) 1,000 mg in 100 mls @ 400 mls/hr IV NOW STA Stop: 06/20/19 16:03 Last Infusion: 02/25/20 20:20 Dose: 0 mls/hr Documented by: [id number] Admin: 06/20/19 16:32 Dose: 400 mls/hr Documented by: [id number] Cefoxitin Sodium 1,000 mg/ (Dextrose) 60 mls @ 100 mls/hr IV ONCE ONE Stop: 06/20/19 16:47 Last Infusion: 06/20/19 20:20 Dose: 0 mls/hr Documented by: [id number] Admin: 06/20/19 15:13 Dose: 100 mls/hr Documented by: [id number] Calcium Chloride 1,000 mg/ (Sodium Chloride) 60 mls @ 240 mls/hr IV NOW STA Stop: 06/20/19 18:07 Last Infusion: 06/20/19 20:20 Dose: 0 mls/hr Documented by: [id number] Admin: 06/20/19 18:19 Dose: 240 mls/hr Documented by: [id number] Sodium Chloride (Nss 1000ml) 1,000 mls @ 100 mls/hr IV .Q10H [facility] Stop: 07/20/19 20:12 Last Infusion: 06/21/19 10:50 Dose: 0 mls/hr Documented by: [id number] Admin: 06/21/19 06:37 Dose: 100 mls/hr Documented by: [id number] Infusion: 06/21/19 06:37 Dose: 100 mls/hr Documented by: [id number] Infusion: 06/20/19 23:18 Dose: 100 mls/hr Documented by: [id number] Admin: 06/20/19 20:47 Dose: 50 mls/hr Documented by: [id number] Acetaminophen (Ofirmev) 1,000 mg in 100 mls @ 400 mls/hr IV Q8H PRN PRN Reason: Fever/Mild Pain (Pain 1,2,3) Stop: 06/24/19 13:36 Last Infusion: 06/21/19 12:31 Dose: 0 mls/hr Documented by: [id number] Admin: 06/21/19 11:56 Dose: 400 mls/hr Documented by: [id number] Famotidine 20 mg/ Syringe 5 mls @ 2.5 mls/min IV BID [facility] Stop: 07/20/19 20:59 Last Admin: 06/21/19 08:53 Dose: 2.5 mls/min Documented by: [id number] Admin: 06/20/19 21:40 Dose: 2.5 mls/min Documented by: [id number] Magnesium Sulfate/Dextrose (Magnesium Sulfate / D5w) 1 gm in 100 mls @ 100 mls/hr IV ONE ONE Stop: 06/20/19 22:25 Last Infusion: 06/20/19 22:41 Dose: 0 mls/hr Documented by: [id number] Admin: 06/20/19 21:40 Dose: 100 mls/hr Documented by: [id number] Phenylephrine HCl 20 mg/ (Dextrose) 502 mls @ 0 mls/hr IV .Q0M [facility]; Protocol Stop: 07/20/19 21:44 Last Titration: 06/22/19 11:39 Dose: 0 mcg/kg/min, 0 mls/hr Documented by: [id number] Titration: 06/21/19 18:10 Dose: 0 mcg/kg/min, 0 mls/hr Documented by: [id number] Titration: 06/21/19 18:07 Dose: 0.1 mcg/kg/min, 7.3 mls/hr Documented by: [id number] Titration: 06/21/19 18:00 Dose: 0.2 mcg/kg/min, 14.7 mls/hr Documented by: [id number] Titration: 06/21/19 17:30 Dose: 0.3 mcg/kg/min, 22 mls/hr Documented by: [id number] Titration: 06/21/19 15:20 Dose: 0.3 mcg/kg/min, 22 mls/hr Documented by: [id number] Titration: 06/21/19 14:30 Dose: 0.2 mcg/kg/min, 14.7 mls/hr Documented by: [id number] Titration: 06/21/19 12:15 Dose: 0.1 mcg/kg/min, 7.3 mls/hr Documented by: [id number] Titration: 06/21/19 11:30 Dose: 0 mcg/kg/min, 0 mls/hr Documented by: [id number] Titration: 06/21/19 10:55 Dose: 0.2 mcg/kg/min, 14.7 mls/hr Documented by: [id number] Titration: 06/21/19 10:07 Dose: 0.3 mcg/kg/min, 22 mls/hr Documented by: [id number] Titration: 06/21/19 09:18 Dose: 0.4 mcg/kg/min, 29.3 mls/hr Documented by: [id number] Admin: 06/21/19 08:53 Dose: 0.5 mcg/kg/min, 36.7 mls/hr Documented by: [id number] Cosigned by: [id number] Titration: 06/21/19 08:25 Dose: 0.5 mcg/kg/min, 36.7 mls/hr Documented by: [id number] Cosigned by: [id number] Titration: 06/21/19 07:23 Dose: 0.5 mcg/kg/min, 36.7 mls/hr Documented by: [id number] Cosigned by: [id number] Titration: 06/21/19 06:20 Dose: 0.5 mcg/kg/min, 36.7 mls/hr Documented by: [id number] Titration: 06/21/19 00:00 Dose: 0.75 mcg/kg/min, 55 mls/hr Documented by: [id number] Admin: 06/20/19 21:53 Dose: 0.5 mcg/kg/min, 36.7 mls/hr Documented by: [id number] Cosigned by: [id number] Sodium Chloride (Nss 1000ml) 500 mls @ 999 mls/hr IV .Q31M ONE Stop: 06/20/19 22:15 Last Infusion: 06/20/19 22:30 Dose: 0 mls/hr Documented by: [id number] Admin: 06/20/19 21:53 Dose: 999 mls/hr Documented by: [id number] Albumin Human (Albumin 25%) 50 mls @ 50 mls/hr IV Q1H [facility] Stop: 06/21/19 03:14 Last Infusion: 06/21/19 03:38 Dose: 0 mls/hr Documented by: [id number] Admin: 06/21/19 02:38 Dose: 50 mls/hr Documented by: [id number] Sodium Chloride (Nss 1000ml) 250 mls @ 999 mls/hr IV .Q16M ONE Stop: 06/21/19 02:26 Last Infusion: 06/21/19 03:38 Dose: 0 mls/hr Documented by: [id number] Admin: 06/21/19 03:22 Dose: 999 mls/hr Documented by: [id number] Parenteral Electrolytes (Normosol-R) 1,000 mls @ 80 mls/hr IV .[id number] [facility] Stop: 07/21/19 10:59 Last Admin: 06/23/19 12:15 Dose: Not Given Documented by: [id number] Infusion: 06/23/19 12:15 Dose: 0 mls/hr Documented by: [id number] Admin: 06/22/19 18:00 Dose: 80 mls/hr Documented by: [id number] Infusion: 06/22/19 12:32 Dose: 0 mls/hr Documented by: [id number] Admin: 06/21/19 23:36 Dose: 80 mls/hr Documented by: [id number] Infusion: 06/21/19 23:32 Dose: 80 mls/hr Documented by: [id number] Admin: 06/21/19 11:02 Dose: 80 mls/hr Documented by: [id number] Famotidine 20 mg/ Syringe 5 mls @ 2.5 mls/min IV DAILY [facility] Stop: 07/20/19 20:59 Last Admin: 06/23/19 09:33 Dose: 2.5 mls/min Documented by: [id number] Admin: 06/22/19 10:14 Dose: 2.5 mls/min Documented by: [id number] Lorazepam (Ativan) 0.5 mg in 1 mls @ 1 mls/min IV NOW STA Stop: 06/23/19 04:30 Last Admin: 06/23/19 05:44 Dose: Not Given Documented by: [id number] Sodium Phosphate 15 mmol/ (Sodium Chloride) 255 mls @ 88 mls/hr IV ONE ONE Stop: 06/24/19 11:53 Last Infusion: 06/24/19 12:46 Dose: 0 mls/hr Documented by: [id number] Admin: 06/24/19 09:24 Dose: 88 mls/hr Documented by: [id number] Piperacillin Sod/Tazobactam (Sod 3.375 gm/ Dextrose) 115 mls @ 28.75 mls/hr IV Q8H STEFAN; Protocol Stop: 06/27/19 21:59 Last Infusion: 06/27/19 21:41 Dose: 0 mls/hr Documented by: [id number] Admin: 06/27/19 18:05 Dose: 28.8 mls/hr Documented by: [id number] Infusion: 06/27/19 14:12 Dose: 0 mls/hr Documented by: [id number] Admin: 06/27/19 10:12 Dose: 28.8 mls/hr Documented by: [id number] Infusion: 06/27/19 10:12 Dose: 28.8 mls/hr Documented by: [id number] Admin: 06/27/19 06:33 Dose: 28.8 mls/hr Documented by: [id number] Infusion: 06/27/19 01:00 Dose: 0 mls/hr Documented by: [id number] Admin: 06/26/19 21:00 Dose: 28.8 mls/hr Documented by: [id number] Infusion: 06/26/19 18:03 Dose: 0 mls/hr Documented by: [id number] Admin: 06/26/19 14:02 Dose: 28.8 mls/hr Documented by: [id number] Infusion: 06/26/19 09:44 Dose: 0 mls/hr Documented by: [id number] Admin: 06/26/19 05:44 Dose: 28.8 mls/hr Documented by: [id number] Infusion: 06/26/19 01:27 Dose: 0 mls/hr Documented by: [id number] Admin: 06/25/19 21:27 Dose: 28.8 mls/hr Documented by: [id number] Infusion: 06/25/19 18:05 Dose: 0 mls/hr Documented by: [id number] Admin: 06/25/19 14:04 Dose: 28.8 mls/hr Documented by: [id number] Infusion: 06/25/19 10:29 Dose: 0 mls/hr Documented by: [id number] Admin: 06/25/19 05:51 Dose: 28.8 mls/hr Documented by: [id number] Infusion: 06/25/19 02:00 Dose: 0 mls/hr Documented by: [id number] Admin: 06/24/19 21:52 Dose: 28.8 mls/hr Documented by: [id number] Sodium Phosphate 21 mmol/ (Sodium Chloride) 507 mls @ 88 mls/hr IV ONE ONE Stop: 06/25/19 13:45 Last Infusion: 06/25/19 14:30 Dose: 0 mls/hr Documented by: [id number] Admin: 06/25/19 08:26 Dose: 88 mls/hr Documented by: [id number] Sodium Chloride (Nss) 500 mls @ 50 mls/hr IV .Q10H STEFAN Stop: 06/27/19 18:44 Last Infusion: 06/27/19 21:05 Dose: 0 mls/hr Documented by: [id number] Admin: 06/27/19 11:05 Dose: 50 mls/hr Documented by: [id number] Magnesium Sulfate/Dextrose (Magnesium Sulfate / D5w) 1 gm in 100 mls @ 100 mls/hr IV TODAY@0900,1000 [facility] Stop: 06/27/19 18:00 Last Infusion: 06/27/19 11:20 Dose: 0 mls/hr Documented by: [id number] Admin: 06/27/19 10:13 Dose: 100 mls/hr Documented by: [id number] Infusion: 06/27/19 09:59 Dose: 100 mls/hr Documented by: [id number] Admin: 06/27/19 08:59 Dose: 100 mls/hr Documented by: [id number] Sodium Phosphate 15 mmol/ (Sodium Chloride) 255 mls @ 88 mls/hr IV TODAY@1000 [facility] Stop: 06/27/19 12:53 Last Infusion: 06/27/19 15:20 Dose: 0 mls/hr Documented by: [id number] Admin: 06/27/19 11:41 Dose: 88 mls/hr Documented by: [id number] Magnesium Sulfate/Dextrose (Magnesium Sulfate / D5w) 1 gm in 100 mls @ 100 mls/hr IV ONE ONE Stop: 06/28/19 01:55 Last Infusion: 06/28/19 02:45 Dose: 0 mls/hr Documented by: [id number] Admin: 06/28/19 01:44 Dose: 100 mls/hr Documented by: [id number] Albumin Human (Albumin 25%) 50 mls @ 50 mls/hr IV ONE ONE Stop: 06/28/19 01:57 Last Infusion: 06/28/19 02:48 Dose: 0 mls/hr Documented by: [id number] Admin: 06/28/19 01:48 Dose: 50 mls/hr Documented by: [id number] Indomethacin (Indocin) 100 mg GA TODAY@0830 [facility] Stop: 06/19/19 18:00 Last Admin: 06/20/19 17:21 Dose: Not Given Documented by: [id number] Indomethacin (Indocin) 100 mg GA TODAY@0800 [facility] Stop: 06/20/19 16:00 Last Admin: 06/20/19 14:45 Dose: 100 mg Documented by: [id number] Iothalamate Meglumine (Conray 60%) Confirm Administered Dose 50 ml .ROUTE .STK- MED ONE Stop: 06/20/19 13:27 Last Admin: 06/20/19 16:10 Dose: Not Given Documented by: [id number] Ioversol (Optiray 320 100ml) 94 ml IV ONCE PRN PRN Reason: Interaction Checking Stop: 06/20/19 12:57 Last Admin: 06/16/19 12:58 Dose: 94 ml Documented by: [id number] Lidocaine HCl (Xylocaine 1% (Local)) Confirm Administered Dose 20 ml .ROUTE .STK-MED ONE Stop: 06/20/19 17:09 Last Admin: 06/20/19 21:11 Dose: Not Given Documented by: [id number] Metoprolol Tartrate (Lopressor) 100 mg PO BID [facility] Stop: 07/16/19 20:59 Last Admin: 06/22/19 09:46 Dose: Not Given Documented by: [id number] Admin: 06/21/19 21:26 Dose: 100 mg Documented by: [id number] Admin: 06/21/19 10:49 Dose: Not Given Documented by: [id number] Admin: 06/20/19 21:40 Dose: Not Given Documented by: [id number] Admin: 06/20/19 08:42 Dose: 100 mg Documented by: [id number] Admin: 06/19/19 20:30 Dose: 100 mg Documented by: [id number] Admin: 06/19/19 07:44 Dose: 100 mg Documented by: [id number] Admin: 06/18/19 21:00 Dose: 100 mg Documented by: [id number] Admin: 06/18/19 08:01 Dose: Not Given Documented by: [id number] Admin: 06/17/19 20:16 Dose: 100 mg Documented by: [id number] Admin: 06/17/19 08:27 Dose: 100 mg Documented by: [id number] Admin: 06/16/19 20:17 Dose: 100 mg Documented by: [id number] Metoprolol Tartrate (Lopressor) 5 mg IV NOW STA Stop: 06/21/19 15:17 Last Admin: 06/21/19 17:14 Dose: Not Given Documented by: [id number] Metoprolol Tartrate (Lopressor) 25 mg PO Q8 STEFAN Stop: 07/22/19 05:59 Last Admin: 06/24/19 06:31 Dose: Not Given Documented by: [id number] Admin: 06/23/19 21:26 Dose: 25 mg Documented by: [id number] Admin: 06/23/19 13:17 Dose: 25 mg Documented by: [id number] Admin: 06/23/19 06:23 Dose: 25 mg Documented by: [id number] Admin: 06/22/19 22:28 Dose: 25 mg Documented by: [id number] Admin: 06/22/19 11:38 Dose: Not Given Documented by: [id number] Metoprolol Tartrate (Lopressor) 5 mg IV Q6 STEFAN Stop: 07/22/19 17:59 Last Admin: 06/22/19 17:52 Dose: 5 mg Documented by: [id number] Metoprolol Tartrate (Lopressor) 5 mg IV NOW STA Stop: 06/23/19 01:55 Last Admin: 06/23/19 02:08 Dose: 5 mg Documented by: [id number] Metoprolol Tartrate (Lopressor) 5 mg IV NOW STA Stop: 06/23/19 04:02 Last Admin: 06/23/19 04:41 Dose: 5 mg Documented by: [id number] Metoprolol Tartrate (Lopressor) 2.5 mg IV NOW STA Stop: 06/24/19 04:27 Last Admin: 06/24/19 04:32 Dose: Not Given Documented by: [id number] Metoprolol Tartrate (Lopressor) 5 mg IV NOW STA Stop: 06/24/19 04:28 Last Admin: 06/24/19 04:44 Dose: 5 mg Documented by: [id number] Metoprolol Tartrate (Lopressor) 50 mg PO Q8 STEFAN Stop: 07/24/19 06:29 Last Admin: 06/26/19 05:39 Dose: 50 mg Documented by: [id number] Admin: 06/25/19 21:30 Dose: 50 mg Documented by: [id number] Admin: 06/25/19 14:04 Dose: 50 mg Documented by: [id number] Admin: 06/25/19 05:50 Dose: 50 mg Documented by: [id number] Admin: 06/24/19 21:40 Dose: 50 mg Documented by: [id number] Admin: 06/24/19 12:57 Dose: 50 mg Documented by: [id number] Admin: 06/24/19 07:15 Dose: 50 mg Documented by: [id number] Metoprolol Tartrate (Lopressor) 2.5 mg IV NOW STA Stop: 06/28/19 00:57 Last Admin: 06/28/19 01:47 Dose: 2.5 mg Documented by: [id number] Miscellaneous (Floseal Hemostatic Matrix 10ml) 10 ml TOP ONCE ONE Stop: 06/20/19 19:38 Last Admin: 06/20/19 19:38 Dose: 10 ml Documented by: [id number] Phenylephrine HCl (Alexander-Synephrine 500mcg/5ml) Confirm Administered Dose 100 mcg .ROUTE .STK-MED ONE Stop: 06/20/19 18:05 Last Admin: 06/20/19 21:11 Dose: Not Given Documented by: [id number] Potassium Chloride (Klor-Con Pwd) 40 meq PO 0730 ONE Stop: 06/18/19 07:31 Last Admin: 06/18/19 07:58 Dose: 40 meq Documented by: [id number] Potassium Chloride (Eulalia Ciel Elix) 20 meq PO NOW STA Stop: 06/22/19 23:30 Last Admin: 06/23/19 00:30 Dose: 20 meq Documented by: [id number] Description This is a 21 electrode EEG with a single channel dedicated to limited EKG. The electrodes were placed in accordance with the InterThis EEG was obtained during wakefulness and is of reasonable technical quality. Simultaneous video analysis of patient movement and behavior was obtained. Drowsiness light sleep not clearly recorded. Photic stimulation is performed. Under these conditions there is evidence for background rhythm in the upper theta range at about 8 Hz maximum frequency and of up to 30 V of maximal amplitude which is macular posterior head regions bilaterally symmetrical. Polymorphic mid to slightly lower frequency theta activity of modest voltage is seen symmetrically over the central regions. Beta activity seen bifrontally. Photic stimulation provokes no significant abnormal discharges No time during the waking tracing is evidence for potentially epileptogenic activity for polyspike or spike-wave burst, focal sharp waves or focal spikes Interpretation This EEG is mildly diffusely abnormal characterized by the absence of a staying normal frequency background alpha rhythm is slightly increased generalized theta activity Clinical Correlation This is a mildly diffusely abnormal EEG indicative of a nonspecific generalized encephalopathy without focal features and without associated potentially epileptogenic activity Obie Johnson MD
--- NOTE | 2019-06-28 09:29 | CT Scan Report ---
CT OF THE HEAD WITHOUT CONTRAST CLINICAL HISTORY: follow up COMPARISON STUDY: Head CT and CTA of the head June 27, 2019. CT DOSE: 1774.42 mGycm TECHNIQUE: Helical axial images of the head were obtained without IV contrast. Automated exposure con trol was utilized for the study. A dose lowering technique was utilized adhering to the principles o f ALARA. FINDINGS: This exam is mildly, must by motion artifact. No acute intracranial hemorrhage, midline david ft or mass effect is present. Ventricular system is normal. Basilar cisterns are patent. There are no extra axial collections. A hypodense focus with loss of ramos-white differentiation within the left f rontal lobe measures at least 2.8 cm. This suggest an acute infarct. This was not evident on prior he ad CT. White matter hypodensity suggests small vessel disease. Visualized portions of the sinuses and mastoid air cells are clear. There is no calvarial fracture. IMPRESSION: Hypodense focus with loss of ramos-white differentiation within the left frontal lobe whi ch measures at least 2.8 cm in extent. This was not evident on prior head CT and suggests a small to moderate sized acute infarct. No hemorrhage. No mass effect. ACT 112: Negative or not required by law. Electronically signed by: Elías Nicole M.D. 06/28/2019 9:28 AM
[2019-06-28] MEDS ORDERED: FUROSEMIDE 40 MG/4 ML VIAL IV ONE (09:48)
--- NOTE | 2019-06-28 09:48 | Hospitalist Progress Note ---
Date of Service June 28, 2019 Assessment & Plan (1) Acute CVA (cerebrovascular accident): Developed expressive aphasia and facial palsy on 06/27/2019. Stroke alert called. CT of head without contrast negative. MRI cannot be performed because of pacemaker. Tele-stroke consultation with [facility] obtained. Patient not a candidate for thrombolytic therapy due to recent surgery with hemorrhage. Underlying chronic atrial fibrillation. Anticoagulation with apixaban recommended. Repeat CT today demonstrated 2.8 cm ischemic stroke in left frontal lobe. PT/OT/SUPERVISOR IN CIRCUIT TESTING. 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 Neurology consulted. (2) CHF (congestive heart failure): Worsening dyspnea this morning especially in supine position. Chest x-ray shows chronic right pleural effusion, cardiomegaly, CHF. Echocardiogram performed on 06/18/2019 demonstrated mild concentric LVH, hypokinesis of inferior posterior basal wall, overall LVEF 60-65%. Probable acute left ventricular diastolic heart failure. Received IV furosemide with improvement. (3) CAD (coronary artery disease): No apparent anginal symptoms. Aspirin held because of recent severe postoperative bleeding. Continue metoprolol and diltiazem. (4) Chronic atrial fibrillation: Chronic AF, now with rapid ventricular response. Continue metoprolol and diltiazem for rate control. Apixaban was held for postoperative bleeding, but resumed because of acute ischemic stroke, probably cardioembolic. (5) HTN (hypertension): Continue metoprolol and carvedilol. (6) COPD (chronic obstructive pulmonary disease): Continue Breo Ellipta. (7) Cholecystitis: Presented with cholecystitis. Cholecystectomy performed and complicated by postoperative bleeding. (8) Adenocarcinoma, lung: Management per Hematology/Oncology. (9) DVT prophylaxis: Anticoagulants not utilized perioperatively because of postoperative hemorrhage. SCDs ordered. Apixaban resumed because of chronic atrial fibrillation with cardioembolic stroke. (10) Discharge planning issues: Anticipated need for skilled care or inpatient rehab once medical status is stable. Internal Medicine follow-up with Dr. Lewis. Admission and Anticipated Discharge Date Admission Date: June 16, 2019 Subjective Recheck for multiple problems. Patient seen in Radiology Department around 0930. Developed severe dyspnea, tachypnea, rapid AF while in supine position for CT scan. Patient unable to verbalize her symptoms clearly due to expressive aphasia. No fever or cough. No chest pain. Review of Systems: Unable to obtain due to expressive aphasia. Physical Exam Constitutional: + acute distress Respiratory: + respiratory distress, + labored breathing and + tachypneic Auscultation: + diminished lung sounds (right base), + rales (left base) and + wheezes Cardiovascular: Rate/Rhythm: + tachycardic and + irregularly irregular Vessels: + JVD Extremities: + edema (trace pretibial); no calf tenderness Gastrointestinal (Abdomen): normal bowel sounds, soft, nontender, no hepatosplenomegaly Musculoskeletal: Extremities: no cyanosis Skin: no rashes, warm and dry Neurologic: PERRL, EOMI no facial palsy appreciated expressive aphasia follows simple commands strength testing of extremities grossly intact Psychiatric: Orientation: alert Results & Data ([facility]) Vital Signs (Past 12 Hours) Vital Signs Temp Pulse Pulse Pulse Resp BP BP 06/28/19 07:05 36.6 C 113 H 26 H 167/69 H 06/28/19 06:05 116 H 143/83 H 06/28/19 02:59 93 H 21 114/66 06/28/19 02:53 110 H 21 124/62 06/28/19 01:47 128 H 126/81 06/28/19 00:57 128 H 22 126/81 06/27/19 23:39 37 C 104 H 20 135/72 Pulse Ox 06/28/19 07:05 92 06/28/19 06:05 06/28/19 02:59 96 06/28/19 02:53 97 06/28/19 01:47 06/28/19 00:57 06/27/19 23:39 95 Laboratory Results 06/28/19 01:10 06/28/19 01:10 Diagnostic Findings CHEST X-RAY FINDINGS: AP and lateral chest radiographs are compared to study dated 06/22/2019. The AP views degraded by patient rotation. A single lead cardiac pacemaker is unchanged in position and partially obscures the left mid chest. The heart is enlarged noting atherosclerotic calcification of the thoracic aorta. There is evidence of congestive failure and interstitial edema. There are moderate pleural effusions, right larger than left with associated consolidation. There is no pneumothorax. The skeletal structures are osteopenic. The bony thorax appears intact. De generative change is noted in the shoulders and thoracic spine. IMPRESSION: 1. Cardiomegaly and cardiac pacemaker with evidence of congestive failure and interstitial edema. This appears worsened as compared to 06/22/2019. 2. There are moderate pleural effusions with bibasilar consolidation. These have increased in size from 06/22/2019. ACT 112: Negative or not required by law. Electronically signed by: Michele Kelley M.D. 06/28/2019 9:[address] HEAD WITHOUT CONTRAST FINDINGS: This exam is mildly, must by motion artifact. No acute intracranial hemorrhage, midline shift or mass effect is present. Ventricular system is normal. Basilar cisterns are patent. There are no extra axial collections. A hypodense focus with loss of ramos-white differentiation within the left frontal lobe measures at least 2.8 cm. This suggest an acute infarct. This was not evident on prior head CT. White matter hypodensity suggests small vessel disease. Visualized portions of the sinuses and mastoid air cells are clear. There is no calvarial fracture. IMPRESSION: Hypodense focus with loss of ramos-white differentiation within the left frontal lobe which measures at least 2.8 cm in extent. This was not evident on prior head CT and suggests a small to moderate sized acute infarct. No hemorrhage. No mass effect. ACT 112: Negative or not required by law. Electronically signed by: Elías Nicole M.D. 06/28/2019 9:28 AM
[2019-06-28] MEDS ORDERED: FUROSEMIDE 40 MG in SYRINGE 0 ML IV STA (09:50)
--- NOTE | 2019-06-28 09:55 | XRay Report ---
TWO VIEW CHEST CLINICAL HISTORY: Dyspnea. FINDINGS: AP and lateral chest radiographs are compared to study dated 06/22/2019. The AP views degrad ed by patient rotation. A single lead cardiac pacemaker is unchanged in position and partially obscur es the left mid chest. The heart is enlarged noting atherosclerotic calcification of the thoracic aor ta. There is evidence of congestive failure and interstitial edema. There are moderate pleural effusi ons, right larger than left with associated consolidation. There is no pneumothorax. The skeletal str uctures are osteopenic. The bony thorax appears intact. Degenerative change is noted in the shoulders and thoracic spine. IMPRESSION: 1. Cardiomegaly and cardiac pacemaker with evidence of congestive failure and interstitial edema. Thi s appears worsened as compared to 06/22/2019. 2. There are moderate pleural effusions with bibasilar consolidation. These have increased in size fr om 06/22/2019. ACT 112: Negative or not required by law. Electronically signed by: Michele Kelley M.D. 06/28/2019 9:54 AM
--- NOTE | 2019-06-28 09:55 | Surgery Progress Note ---
Date of Service June 28, 2019 Assessment & Plan (1) S/P laparoscopic cholecystectomy: POD 8 lap ning/laparotomy leave drain for now can advance diet as yasmin, seen by D[employer] yesterday CT now with 2.8 cm left frontal infarct Subjective aphasic, smiles, nods her head to simple questions Physical Exam Gastrointestinal (Abdomen): Inspection/Auscultation: + abdominal surgical drain present (30 cc, old blood) Percussion/Palpation: abdomen soft; abdomen nontender Results & Data Vital Signs (Past 12 Hours) Vital Signs Temp Pulse Pulse Pulse Resp BP BP 06/28/19 07:05 36.6 C 113 H 26 H 167/69 H 06/28/19 06:05 116 H 143/83 H 06/28/19 02:59 93 H 21 114/66 06/28/19 02:53 110 H 21 124/62 06/28/19 01:47 128 H 126/81 06/28/19 00:57 128 H 22 126/81 06/27/19 23:39 37 C 104 H 20 135/72 Pulse Ox 06/28/19 07:05 92 06/28/19 06:05 06/28/19 02:59 96 06/28/19 02:53 97 06/28/19 01:47 06/28/19 00:57 06/27/19 23:39 95 PG Care Time/CCT Total # of Minutes Spent Total Time Spent with Patient: Total time spent is greater than 50% in coordination of care (as documented) at patient's floor/unit and/or counseling patient: Coding Diagnoses S/P laparoscopic cholecystectomy Z90.49
--- NOTE | 2019-06-28 13:57 | Internal Medicine Consult Note ---
Date of Consultation June 28, 2019 Assessment & Plan (1) Encounter for rehabilitation evaluation: Complex medical concerns still requiring acute care intervention. Will track her progress and once stable, she would benefit from the higher level of medical oversight available at [facility]. History of Present Illness Reason for Consultation: Rehab Hospital Risk Evaluation Attending Physician: Obie Flores MD History of Present Illness Complex array of medical issues including adenocarcinoma of the lung, c holecystitis and surgical lap, recent embolic left hemispheric stroke with aphasia, and EEG abnorm. Currently also dealing with volume issues related to HTN heart and atrial fib. Current medical status is tenuous. Spoke with hospitalist who is actively working to mitigate her medical issues. Allergies Allergy/AdvReac Type Severity Reaction Status Date / Time lisinopril Allergy Intermediate RASH Verified 06/16/19 11:45 zolpidem AdvReac Severe hallucinati Verified 06/16/19 11:45 ons Home Medications Home Medications Medication Instructions Recorded Confirmed Type lorazepam 0.5 mg PO HS PRN 04/21/18 06/16/19 History metoprolol tartrate 100 mg PO BID 04/21/18 06/16/19 History pantoprazole 40 mg PO DAILY 04/21/18 06/16/19 History folic acid 1 mg PO DAILY 04/28/18 06/16/19 History nitroglycerin 0.4 mg SUBLINGUAL UD PRN 04/28/18 06/16/19 History Eliquis 2.5 mg PO BID 07/10/18 06/16/19 History aspirin [Aspirin Low Dose] 81 mg PO QAM 07/10/18 06/16/19 History diltiazem HCl 360 mg PO DAILY 07/10/18 06/16/19 History ondansetron HCl [Zofran] 8 mg PO TID PRN 07/10/18 06/16/19 History furosemide 40 mg tablet 40 mg PO BID #30 tab 12/20/18 06/16/19 History iron,carbonyl 65 mg-vitamin C 125 1 tab PO DAILY 12/21/18 06/16/19 History mg tablet,delayed release magnesium oxide 400 mg PO DAILY cap 12/21/18 06/16/19 History nystatin 100,000 unit/gram topical 1 appln TOP BID 12/21/18 06/16/19 History powder trazodone 50 mg tablet 50 mg PO HS 12/21/18 06/16/19 History albuterol sulfate [Ventolin HFA] 2 puff INHALATION QID PRN 12/30/18 06/16/19 History triamcinolone acetonide 0.1 % 1 appln TOP BID 03/28/19 06/16/19 History topical cream megestrol 400 mg/10 mL (40 mg/mL) 200 mg PO BID #240 ml 04/03/19 06/16/19 Rx oral suspension budesonide-formoterol HFA 160 2 puff INHALATION Q12H #10.2 gm 05/11/19 06/16/19 Rx mcg-4.5 mcg/actuation aerosol inhaler docusate sodium 100 mg PO BID 06/16/19 06/16/19 History polyethylene glycol 3350 [Miralax] 17 g PO QAM 06/16/19 06/16/19 History prochlorperazine maleate 10 mg PO Q6H PRN 06/16/19 06/16/19 History [Compazine] Patient History Medical History (Updated 06/28/19 @ 13:55 by John Granados MD) A-fib (Inactive) Ok to continue Eliquis and restart all AVN blockers Acute on chronic renal failure Anemia CAD (coronary artery disease) Cancer LUNG CANCER S/P RECENT CHEMO (COMPLETED 04/01/18) Chronic obstructive pulmonary disease Diabetes mellitus, type II (Inactive) GERD (gastroesophageal reflux disease) Hiatal hernia Hyperlipidemia Hypertension Myocardial Infarction 1992= MEDICAL MANAGEMENT Osteoarthritis Osteoporosis PNA (pneumonia) (Inactive) Recurrent pleural effusion on right Tachy-rex syndrome s/p permanent pacemaker Volume overload (Inactive) Surgical History History of adenoidectomy History of appendectomy History of arthroscopy RIGHT KNEE History of cardiac cath 1992= NO STENTS History of cataract surgery BILATERAL History of section X4 History of colonoscopy History of hysterectomy JOSE WITH BSO History of lung surgery NAVIGATIONAL BRONCH/EBUS= 11/09/17= GRADE I VIEW, MAC 3, ETT 8.0 AT [facility] History of tonsillectomy History of tooth extraction Family History Grandfather (Paternal) Family hx of colon cancer Social History Preferred Language: [place]er Communication Ability: Effective Visual Impairment: No Limitations Street Department Dispatcher Required: No Beliefs That Will Affect Care: None marital status: Current Living Situation: Family Current Living Situation Comment: pt also has a caregiver come to her home Other Information That Helps Us Care for You: No Feels Safe at Home: Yes Safety Concerns: Feels Safe At This Time Smoking Status: Never smoker Cigarettes Per Day: 10 ; Do You Dip or Chew Tobacco: No ; Second Hand Exposure: No ; Hx Alcohol Use: No Hx Substance Use: No Review of Systems Review of Systems: no ne target Physical Exam Physical Exam: Very frail Some dyspnea noted Vitals--reviewed HEENT--no new target Respiratory--exchange is fair-dyspnea Rate is tachy No new focal neuro changes. Results & Data Vital Signs (Past 12 Hours) Vital Signs Temp Pulse Pulse Pulse Resp BP Pulse Ox 06/28/19 11:12 36.4 C L 130 H 26 H 166/85 H 91 06/28/19 07:40 114 H 06/28/19 07:05 36.6 C 113 H 26 H 167/69 H 92 06/28/19 06:05 116 H 143/83 H 06/28/19 02:59 93 H 21 114/66 96 06/28/19 02:53 110 H 21 124/62 97
--- NOTE | 2019-06-28 14:10 | Neurology Progress Note ---
Date of Service June 28, 2019 Assessment & Plan (1) Stroke-like symptoms: 1. continue Eliquis 2.[address] head- 06/27 2.8 CM left frontal lobe infarct repeat in 24 hours monitor hemorrhagic transformation 3. CTA head/neck no occlusion 4. optimized HTN, HLD, DM LDL <70 consider patient age 5. PT/OT speech for discharge needs 6. would not start aspirin 7. breathing issues- primary service to address. (2) Chronic atrial fibrillation: Admission and Anticipated Discharge Date Admission Date: June 16, 2019 Supervising Physician Co-Signing Physician Notes I have seen and discussed above patient with Dr Obie Johnson, neurology I have revisited this woman and find her to still be densely aphasic with few motor deficits and now with respiratory distress and with imaging showing an infarct in the left parietal lebe but with no mass effect or bleeding and now back on eliquis for 48 hours See no need to bridge with heparin and would suggest only a repeat ct tomorrow and then again in a week depending on her clinical state. EEG is minimally slow only and no seizures We will check back tomorrow Obie Johnson MD Kavita Ding is a 79 year old female who presented 06/20/2019 with pancreatitis secondary to choledocholithiasis status post ERCP with laparoscopic ning cystectomy with postoperative bleeding requiring exploratory laparoscopy, notable for cystic artery bleed which was successfully ligated. She was down graded to telemetry and last night she had an episode of slurred speech, right facial droop. Her sister and brother in law were in the room yesterday and stated she has not been very active since her diagnosis of lung cancer and status post chemo therapy. She was offered chemotherapy for a recurrence which she has declined treatment due to the extreme illness and vomiting with previous treatment. She was on Eliquis prior to her surgery for a fib and was restarted last night after the episode of slurred speech and right facial droop. She is currently awake and alert, some labored breathing with non rebreather in place. Her sister is bedside and states she has been answer simple questions with head nod and was working with PT/OT this am. Physical Exam Physical Exam: Gen: alert lungs course breath sound with diaphram breathing CV irregular irregular follows commands but is aphasic squeezes bilaterally with hands, biceps triceps 4+/5 hip flex bilaterally 4+/5 Results & Data ([facility]) Vital Signs (Past 12 Hours) Vital Signs Temp Pulse Pulse Pulse Resp BP Pulse Ox 06/28/19 11:12 36.4 C L 130 H 26 H 166/85 H 91 06/28/19 07:40 114 H 06/28/19 07:05 36.6 C 113 H 26 H 167/69 H 92 06/28/19 06:05 116 H 143/83 H 06/28/19 02:59 93 H 21 114/66 96 06/28/19 02:53 110 H 21 124/62 97 Laboratory Results Abnormal lab results 06/27/19 06/27/19 06/28/19 Range/Units 16:41 20:37 01:10 RBC 3.09 L (4.2-5.4) M/uL Hgb 9.7 L (12.0-16.0) g/dL Hct 29.8 L (37-47) % RDW Std Deviation 54.1 H (36.4-46.3) fL RDW Coeff of Ilya 16.9 H (11.5-14.5) % Immature Gran # (Auto) 0.04 H (0.00-0.02) K/uL Lymph # (Auto) 1.11 L (1.2-3.4) K/uL [place] # (Auto) 0.88 H (0.11-0.59) K/uL Chloride (98-107) mmol/L Glucose (70-99) mg/dl POC Glucose 112 H 117 H (70-99) mg/dl 06/28/19 06/28/19 06/28/19 Range/Units 01:10 07:03 11:25 RBC (4.2-5.4) M/uL Hgb (12.0-16.0) g/dL Hct (37-47) % RDW Std Deviation (36.4-46.3) fL RDW Coeff of Ilya (11.5-14.5) % Immature Gran # (Auto) (0.00-0.02) K/uL Lymph # (Auto) (1.2-3.4) K/uL [place] # (Auto) (0.11-0.59) K/uL Chloride 112 H (98-107) mmol/L Glucose 104 H (70-99) mg/dl POC Glucose 119 H 149 H (70-99) mg/dl Diagnostic Findings CT head- Hypodense focus with loss of ramos-white differentiation within the left frontal lobe which measures at least 2.8 cm in extent. This was not evident on p rior head CT and suggests a small to moderate sized acute infarct. No hemorrhage. No mass effect.
--- NOTE | 2019-06-28 16:21 | Cardiology Progress Note ---
Date of Service June 28, 2019 Assessment & Plan (1) Acute cholecystitis: s/p ERCP and Lap ning with re-exploration Slowly improving postsurgically. Now receiving NG feeds bowels active (2) Chronic kidney disease (CKD): Renal function appears stable. (3) Tachy-rex syndrome: Normally functioning pacemaker in place with atrial fibrillation rates mildly elevated as per in past in part secondary to acute complaints and lapse in medications Pacemaker currently not being used due to elevated heart rate and demand device Pacer lead interrogation last 03/15/2019 with normal function and excellent battery life (4) Chronic atrial fibrillation: Outpatient oral regimen resumed on 06/26/2019. Outpatient regimen resumed. (5) Recurrent pleural effusion on right: Stable Past effusions have been managed with repeat thoracenteses Currently compensated without complaint We will continue to follow clinically for now (6) CAD (coronary artery disease): given hx of CAD along with afib and rvr: HGB should be maintained above 9 (7) Acute CVA (cerebrovascular accident): Ischemic left frontal lobe with resultant aphasia. Subjective Patient seen and examined with her friend at bedside. Patient remains nonverbal however appropriately responsive nonverbally. Very cheerful the time of my interview and laughing appropriately to my bad jokes. When asked if she is having any discomfort she does not respond. Tolerating p.o. now. Telemetry reviewed: Atrial fibrillation with variable rates Review of Systems Review of Systems: Unobtainable due to mental health condition Physical Exam Physical Exam: General: Awake, alert. Very cheerful. No acute distress. HEENT: Normocephalic, atraumatic. Pupils equal, round and reactive to light and accommodation. Extraocular muscles are intact. Anicteric sclera. Moist mucous membranes. Neck: No JVD. No bruit. Cardiovascular: irregularly irregular, unable to appreciate murmur, rub or gallop. Pulmonary: Clear to auscultation bilaterally. No rales, rhonchi, or wheezing. Abdomen: Bowel sounds x 4, soft. No rebound, guarding or tenderness. No organomegaly. Extremities: No clubbing, cyanosis or edema. +2 pedal pulses bilaterally. Skin: Warm and dry. Results & Data Vital Signs (Past 12 Hours) Vital Signs Temp Pulse Pulse Pulse Resp BP Pulse Ox 06/28/19 15:17 37.1 C 109 H 23 143/70 H 93 06/28/19 11:12 36.4 C L 130 H 26 H 166/85 H 91 06/28/19 07:40 114 H 06/28/19 07:05 36.6 C 113 H 26 H 167/69 H 92 06/28/19 06:05 116 H 143/83 H
[2019-06-28] MEDS ORDERED: POTASSIUM CHLORIDE 20 MEQ TABCR PO ONE (18:20)
[2019-06-28] MEDS: MoRPHine SULFATE 2 MG/ML CARP IV PRN ×2 (18:38→23:58)
[2019-06-28] MEDS ORDERED: FUROSEMIDE 40 MG in SYRINGE 0 ML IV ONE (20:00)
[2019-06-28] MEDS: METOPROLOL TARTRATE 100 MG TAB PO SCH ×2 (21:20→21:21)
[2019-06-29 06:28] LABS: BUN Creatinine Ratio 15.2 (10-20); Calcium 9.2 mg/dl (8.5-10.1); Creatinine Clr Calc Pharmacy 35.8 ml/min; Est GFR (African American) 65.6; Est GFR (Non-African American) 56.6; Potassium 4.2 mmol/L (3.5-5.1)
--- NOTE | 2019-06-29 06:37 | Surgery Progress Note ---
Date of Service June 29, 2019 Assessment & Plan (1) Postoperative haemorrhage: pt sitting up in bed - very alert, aphasia persists vital signs stable Drain- dark, serosang fluid incision stable d/c drain today for repeat head CT Results & Data Vital Signs (Past 12 Hours) Vital Signs Temp Pulse Pulse Resp BP Pulse Ox 06/29/19 04:00 36.7 C 88 22 142/58 H 95 06/29/19 01:17 84 06/28/19 23:57 36.8 C 95 H 22 144/70 H 94 06/28/19 19:31 37.0 C 116 H 23 158/53 H 94 PG Care Time/CCT Total # of Minutes Spent Total Time Spent with Patient: Total time spent is greater than 50% in coordination of care (as documented) at patient's floor/unit and/or counseling patient: Coding Level of Care Code None Diagnoses Postoperative haemorrhage
--- NOTE | 2019-06-29 07:30 | XRay Report ---
XR chest 1V portable CLINICAL HISTORY: CHF COMPARISON STUDY: Chest radiograph June 28, 2019. FINDINGS: Left subclavian pacemaker is in place. There is moderate cardiomegaly. There is no pneumoth orax. Moderate bilateral pleural effusions persist. There is persistent pulmonary edema. The appearan ce of the chest is unchanged. IMPRESSION: No change in appearance of the chest. Persistent pulmonary edema and moderate bilateral pleural effusions. ACT 112: Negative or not required by law. Electronically signed by: Elías Nicole M.D. 06/29/2019 7:29 AM
[2019-06-29] MEDS: APIXABAN 2.5 MG TAB PO SCH ×2 (09:28→19:59)
[2019-06-29] MEDS: FLUTICASONE/VILANTEROL 100/25MCG 14 PUFFS/INHALER INH SCH (09:28)
[2019-06-29] MEDS: PANTOprazole 40 MG TAB PO SCH (09:29)
[2019-06-29] MEDS: DOCUSATE SODIUM SYRUP 100 MG/10 ML UDC PO SCH ×2 (09:29→19:59)
[2019-06-29] MEDS: dilTIAZem HCL 180 MG CAPCR PO SCH (09:29)
[2019-06-29] MEDS: METOPROLOL TARTRATE 100 MG TAB PO SCH ×2 (09:29→20:00)
--- NOTE | 2019-06-29 10:25 | CT Scan Report ---
CT SCAN OF THE BRAIN WITHOUT IV CONTRAST CLINICAL HISTORY: Follow-up stroke. COMPARISON STUDY: CT of the brain dated 06/28/2019. TECHNIQUE: Unenhanced axial CT scan of the brain is performed from the vertex to the skull base. A do se lowering technique was utilized adhering to the principles of ALARA. The patient was scanned twice due to motion artifact. CT DOSE: 1074.96 mGy.cm FINDINGS: Brain parenchyma: Again seen is focal loss of ramos-white matter differentiation in the left frontal l obe consistent axial image #18) which likely represents an evolving subacute infarct. No hemorrhage o r mass effect is seen. No additional foci of acute to subacute ischemia are suggested. There are age- related involutional changes noting mild to moderate patchy subcortical and periventricular microang iopathic change. No extra-axial fluid collection is seen. Ventricles, sulci, cisterns: Prominent secondary to involutional change. Intracranial vasculature: There is atherosclerotic calcification of the cavernous carotid and vertebr al arteries. Calvarium: Unremarkable. Sinuses and mastoids: The visualized paranasal sinuses are clear. The mastoid air cells are well pneu matized. Orbits: The bony orbits are grossly intact. There are bilateral ocular lens implants. IMPRESSION: 1. Again seen is focal loss of ramos-white matter differentiation the left frontal lobe. This likely r epresents a small evolving infarct. 2. No additional foci of ischemia are suggested. 3. There is no hemorrhage or mass effect. ACT 112: Negative or not required by law. Electronically signed by: Michele Kelley M.D. 06/29/2019 10:24 AM
--- NOTE | 2019-06-29 15:11 | Neurology Progress Note ---
Date of Service June 29, 2019 Assessment & Plan (1) Stroke-like symptoms: 1. continue Eliquis 2.[address] head- 06/27 2.8 CM left frontal lobe infarct repeat in 24 hours monitor hemorrhagic transformation. repeated 06/29/2019 no hemorrhagic transformation 3. CTA head/neck no occlusion 4. optimized HTN, HLD, DM LDL <70 consider patient age 5. PT/OT speech for discharge needs 6. would not start aspirin 7. breathing issues- primary service to address- resolving will be available as needed will sign off for now (2) Chronic atrial fibrillation: Admission and Anticipated Discharge Date Admission Date: June 16, 2019 Supervising Physician Co-Signing Physician Notes I have seen and discussed above patient with Dr Obie Johnson, neurology I saw Mrs. Corona today in the presence of her family and discussed her case with Alea Abreu PA-C. I have reviewed the repeat CT scan which shows a small area of infarction in the left frontal parietal area which would explain her a aphasia that her comprehension is much better than I anticipated suggesting to me that this is more frontal and parietal area of involvement. This is very likely embolic event from paroxysmal atrial fibrillation and woman who have to be off her Eliquis the risk of bleeding which is now probably back on the agent, serial CT scans of show no areas of hemorrhage, and at this point I would simply continue with, get chemotherapy involved which is already occurred and consider rehabilitation facility for management of her generalized decline in overall function during this hospital stay and and location where she can receive ongoing speech therapy In this regard I think an institution such as [facility] in [facility] may be a very good choice Neurology will sign off the case. We probably will need to see her back as part of the general post CVA algorithm in about 4 to 6 weeks but beyond that appointment will think we have much more to offer Obie Johnson MD Kavita Ding is a 79 year old female who presented 06/20/2019 with pancreatitis secondary to choledocholithiasis status post ERCP with laparoscopic cholecystectomy with postoperative bleeding requiring exploratory laparoscopy, notable for cystic artery bleed which was successfully ligated. She was down graded to telemetry and last night she had an episode of slurred speech, right facial droop. Her sister and brother in law were in the room yesterday and stated she has not been very active since her diagnosis of lung cancer and status post chemo therapy. She was offered chemotherapy for a recurrence which she has declined treatment due to the extreme illness and vomiting with previous treatment. She was on Eliquis prior to her surgery for a fib and was restarted last night after the episode of slurred speech and right facial droop. She is currently awake and alert her breathing is much better today. Her sister, brother in law, nephew and daughter are bedside and states she has been answer simple questions with head nod. She is forming some sound this am but unable to understand. She shakes her head no for pain. Physical Exam Physical Exam: Gen: alert NAD lungs course breath sounds CV irregular finger to nose no bi pass difficulty with hold hands up reflexes symmetric brisk sensation intact to light and cool touch down going toes Results & Data ([facility]) Vital Signs (Past 12 Hours) Vital Signs Temp Pulse Pulse Resp BP Pulse Ox 06/29/19 11:31 36.2 C L 115 H 18 131/72 06/29/19 08:00 37.3 C 109 H 22 157/87 H 95 06/29/19 04:00 36.7 C 88 22 142/58 H 95 Laboratory Results Abnormal lab results 06/29/19 Range/Units 05:28 Chloride 110 H (98-107) mmol/L Glucose 121 H (70-99) mg/dl Diagnostic Findings CT head repeated 06/29/2019-Again seen is focal loss of ramos-white matter differentiation the left frontal lobe. This likely represents a small evolving infarct. No additional foci of ischemia are suggested. There is no hemorrhage or mass effect.
[2019-06-29] MEDS: HYDROCODONE/ACETAMOPHEN 5/325MG TAB PO PRN ×2 (16:04→20:41)
--- NOTE | 2019-06-29 19:56 | Hospitalist Progress Note ---
Date of Service June 29, 2019 Assessment & Plan (1) Acute CVA (cerebrovascular accident): Developed expressive aphasia and facial palsy on 06/27/2019. Stroke alert called. CT of head without contrast negative. MRI cannot be performed because of pacemaker. Tele-stroke consultation with [facility] obtained. Patient not a candidate for thrombolytic therapy due to recent surgery with hemorrhage. Underlying chronic atrial fibrillation. Anticoagulation with apixaban recommended. Repeat CT 06/27 demonstrated 2.8 cm ischemic stroke in left frontal lobe. Repeat CT today- stable left frontal lesion, no hemorrhage. 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 Neurology consulted. (2) CHF (congestive heart failure): Worsening dyspnea this morning especially in supine position. Chest x-ray shows chronic right pleural effusion, cardiomegaly, CHF. Echocardiogram performed on 06/18/2019 demonstrated mild concentric LVH, hypokinesis of inferior posterior basal wall, overall LVEF 60-65%. Probable acute left ventricular diastolic heart failure. Received IV furosemide with improvement. (3) CAD (coronary artery disease): No apparent anginal symptoms. Aspirin held because of recent severe postoperative bleeding. Continue metoprolol and diltiazem. (4) Chronic atrial fibrillation: Chronic AF. Rapid ventricular response associated with CHF. Continue metoprolol and diltiazem for rate control. Apixaban was held for postoperative bleeding, but resumed because of acute ischemic stroke, probably cardioembolic. (5) HTN (hypertension): Continue metoprolol and carvedilol. (6) COPD (chronic obstructive pulmonary disease): Continue Breo Ellipta. (7) Pleural effusion on right: Recurrent right pleural effusion, s/p multiple thoracentesis. Cytology 04/14/19- atypical cells consistent with reactive mesothelial cells. No need for repeat thoracentesis at this time. (8) Cholecystitis: Presented with cholecystitis. Cholecystectomy performed and complicated by postoperative bleeding. (9) Acute blood loss anemia: Postoperative hemorrhage after cholecystectomy. Hgb fell as low as 7.4. Received 3 units pRBC's. Hgb yesterday 9.7. Follow. (10) Adenocarcinoma, lung: Management per Hematology/Oncology. (11) DVT prophylaxis: Anticoagulants not utilized perioperatively because of postoperative hemorrhage. SCDs ordered. Apixaban resumed because of chronic atrial fibrillation with cardioembolic stroke. (12) Discharge planning issues: Anticipated need for skilled care or inpatient rehab once medical status is stable. Internal Medicine follow-up with Dr. Lewis. Admission and Anticipated Discharge Date Admission Date: June 16, 2019 Subjective Recheck for multiple problems. Patient seen in in her room around 1610. Family visiting. Ongoing expressive aphasia. Respiratory status improved over past 24 hours after receiving intravenous furosemide. No fever or cough. No chest pain. Review of Systems: Unable to obtain due to expressive aphasia. Physical Exam Constitutional: + acute distress Respiratory: no respiratory distress and no labored breathing Auscultation: + diminished lung sounds (right base) and + rales (few at left base) Cardiovascular: Rate/Rhythm: + irregularly irregular Vessels: + JVD Extremities: + edema (trace pretibial); no calf tenderness Gastrointestinal (Abdomen): normal bowel sounds, soft, nontender, no hepatosplenomegaly Musculoskeletal: Extremities: no cyanosis Skin: no rashes, warm and dry Neurologic: alert expressive aphasia PERRL, EOMI no facial palsy mild weakness upper and lower extremities Psychiatric: Orientation: alert Results & Data ([facility]) Vital Signs (Past 12 Hours) Vital Signs Temp Pulse Resp BP Pulse Ox 06/29/19 15:11 36.8 C 95 H 18 160/91 H 94 06/29/19 11:31 36.2 C L 115 H 18 131/72 06/29/19 08:00 37.3 C 109 H 22 157/87 H 95
[2019-06-29] MEDS ORDERED: FUROSEMIDE 40 MG/4 ML VIAL IV ONE (23:19)
[2019-06-29] MEDS ORDERED: FUROSEMIDE 40 MG in SYRINGE 0 ML IV ONE (23:30)
[2019-06-30 07:14] LABS: Mean Corpuscular Hemoglobin 31.7 pg (25-34); Mean Corpuscular Hgb Conc 32.4 g/dL (32-36); Mean Platelet Volume 9.2 fL (7.4-10.4); Platelet Count 305 K/uL (130-400); RDW Coefficient of Variation 17.5 % (11.5-14.5); RDW Standard Deviation 59.1 fL (36.4-46.3); Red Blood Count 3.47 M/uL (4.2-5.4); White Blood Count 7.87 K/uL (4.8-10.8)
--- NOTE | 2019-06-30 07:32 | XRay Report ---
XR chest 1V portable CLINICAL HISTORY: 79 years-old Female presenting with CHF. TECHNIQUE: Portable upright AP view of the chest was obtained. COMPARISON: 06/29/2019. FINDINGS: Left subclavian pacer with single lead to the right ventricular apex. Atherosclerosis of the aortic a rch. Cardiac silhouette with obscured heart borders due to the presence of moderate bilateral layerin g pleural effusions. Significant pulmonary vascular engorgement and interstitial prominence. Extensiv e mid to basilar predominant opacities with poor aeration. Osteopenia. Degenerative changes of the sh oulder. Upper abdomen normal. IMPRESSION: 1. Cardiomegaly with volume overload, congestive change, and moderate pulmonary edema as on prior ex am. 2. Moderate bilateral layering pleural effusions. 3. Overall stable examination. ACT 112: Negative or not required by law. Results electronically sent 06/30/2019 7:31 AM to: Obie Flores MD Electronically signed by: John Silverman M.D. 06/30/2019 7:31 AM
[2019-06-30 07:44] LABS: BUN Creatinine Ratio 17.6 (10-20); Calcium 9.7 mg/dl (8.5-10.1); Creatinine Clr Calc Pharmacy 32.2 ml/min; Est GFR (African American) 65.6; Est GFR (Non-African American) 56.6; Potassium 3.9 mmol/L (3.5-5.1)
--- NOTE | 2019-06-30 08:02 | Surgery Progress Note ---
Date of Service June 30, 2019 Assessment & Plan (1) Postoperative haemorrhage: awake, alert- sitting, eating breakfast aphasic but good response to questions will remove 1/2 haley- remainder next week to rehab/extended care when ok with med team Results & Data Vital Signs (Past 12 Hours) Vital Signs Temp Pulse Pulse Resp BP Pulse Ox 06/30/19 07:01 36.6 C 91 H 19 124/85 99 06/30/19 04:00 36.4 C L 104 H 18 131/81 95 06/30/19 00:00 88 06/29/19 23:38 36.4 C L 89 18 132/75 96 06/29/19 21:17 37.2 C 88 18 112/72 95 PG Care Time/CCT Total # of Minutes Spent Total Time Spent with Patient: Total time spent is greater than 50% in coordination of care (as documented) at patient's floor/unit and/or counseling patient: Coding Level of Care Code None Diagnoses Postoperative haemorrhage
[2019-06-30] MEDS: METOPROLOL TARTRATE 100 MG TAB PO SCH ×2 (08:06→21:18)
[2019-06-30] MEDS: APIXABAN 2.5 MG TAB PO SCH ×2 (08:06→21:17)
[2019-06-30] MEDS: DOCUSATE SODIUM SYRUP 100 MG/10 ML UDC PO SCH ×2 (08:06→21:17)
[2019-06-30] MEDS: dilTIAZem HCL 180 MG CAPCR PO SCH (08:07)
[2019-06-30] MEDS: PANTOprazole 40 MG TAB PO SCH (08:07)
[2019-06-30] MEDS: FLUTICASONE/VILANTEROL 100/25MCG 14 PUFFS/INHALER INH SCH (08:07)
--- NOTE | 2019-06-30 13:12 | Cardiology Progress Note ---
Date of Service June 30, 2019 Assessment & Plan (1) Acute cholecystitis: s/p ERCP and Lap ning with re-exploration Slowly improving postsurgically. Now receiving NG feeds bowels active (2) Chronic kidney disease (CKD): Renal function appears stable. (3) Tachy-rex syndrome: Normally functioning pacemaker in place with atrial fibrillation rates mildly elevated as per in past in part secondary to acute complaints and lapse in medications Pacemaker currently not being used due to elevated heart rate and demand device Pacer lead interrogation last 03/15/2019 with normal function and excellent battery life (4) Chronic atrial fibrillation: Outpatient oral regimen resumed on 06/26/2019. Outpatient regimen resumed. will sign off, please call with questions or concerns (5) Recurrent pleural effusion on right: Stable Past effusions have been managed with repeat thoracenteses Currently compensated without complaint We will continue to follow clinically for now (6) CAD (coronary artery disease): given hx of CAD along with afib and rvr: HGB should be maintained above 9 (7) Acute CVA (cerebrovascular accident): Ischemic left frontal lobe with resultant aphasia. improving for rehab Subjective Patient seen and examined with friend at bedside. Patient is reportedly doing much better now and speaking in partial sentences. She is very cheerful and no complaints have been reported. When asked directly the patient shakes her head no when asked if she having any chest pain or trouble breathing. Telemetry reviewed: Atrial fibrillation rate controlled. Review of Systems Review of Systems: All systems reviewed & are unremarkable except as noted in HPI & below Physical Exam Physical Exam: General: Awake, alert and oriented. No acute distress. HEENT: Normocephalic, atraumatic. Pupils equal, round and reactive to light and accommodation. Extraocular muscles are intact. Anicteric sclera. Moist mucous membranes. Neck: No JVD. No bruit. Cardiovascular: irregularly irregular, unable to appreciate murmur, rub or gallop. Pulmonary: Clear to auscultation bilaterally. No rales, rhonchi, or wheezing. Abdomen: Bowel sounds x 4, soft. No rebound, guarding or tenderness. No organomegaly. Extremities: No clubbing, cyanosis or edema. +2 pedal pulses bilaterally. Skin: Warm and dry. Results & Data Vital Signs (Past 12 Hours) Vital Signs Temp Pulse Resp BP Pulse Ox 06/30/19 11:09 36.6 C 83 19 109/61 98 06/30/19 07:01 36.6 C 91 H 19 124/85 99 06/30/19 04:00 36.4 C L 104 H 18 131/81 95
[2019-06-30] MEDS ORDERED: POTASSIUM CHLORIDE 20 MEQ TABCR PO ONE (14:06)
[2019-06-30] MEDS ORDERED: FUROSEMIDE 40 MG TAB PO ONE (14:06)
[2019-06-30] MEDS: HYDROCODONE/ACETAMOPHEN 5/325MG TAB PO PRN (21:16)
[2019-06-30] MEDS: POTASSIUM CHLORIDE 20 MEQ TABCR PO SCH (21:18)
[2019-06-30] MEDS ORDERED: Nursing to Pharmacy Communication ONE (21:19)
--- NOTE | 2019-06-30 22:51 | Hospitalist Progress Note ---
Date of Service June 30, 2019 Assessment & Plan (1) Acute CVA (cerebrovascular accident): Developed expressive aphasia and facial palsy on 06/27/2019. Stroke alert called. CT of head without contrast negative. MRI cannot be performed because of pacemaker. Tele-stroke consultation with [facility] obtained. Patient not a candidate for thrombolytic therapy due to recent surgery with hemorrhage. Underlying chronic atrial fibrillation. Anticoagulation with apixaban recommended. Repeat CT 06/27 demonstrated 2.8 cm ischemic stroke in left frontal lobe. Repeat CT today- stable left frontal lesion, no hemorrhage. 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 Neurology consulted. (2) CHF (congestive heart failure): Worsening dyspnea 06/27 especially in supine position. Chest x-ray shows chronic right pleural effusion, cardiomegaly, CHF. Echocardiogram performed on 06/18/2019 demonstrated mild concentric LVH, hypokinesis of inferior posterior basal wall, overall LVEF 60-65%. Probable acute left ventricular diastolic heart failure. Received IV furosemide with improvement. Transition to oral furosemide tomorrow. (3) CAD (coronary artery disease): No apparent anginal symptoms. Aspirin held because of recent severe postoperative bleeding. Continue metoprolol and diltiazem. (4) Chronic atrial fibrillation: Chronic AF. Rapid ventricular response associated with CHF. Continue metoprolol and diltiazem for rate control. Apixaban was held for postoperative bleeding, but resumed because of acute ischemic stroke, probably cardioembolic. (5) HTN (hypertension): Continue metoprolol and carvedilol. (6) COPD (chronic obstructive pulmonary disease): Continue Breo Ellipta. (7) Pleural effusion on right: Recurrent right pleural effusion, s/p multiple thoracentesis. Cytology 04/14/19- atypical cells consistent with reactive mesothelial cells. No need for repeat thoracentesis at this time. (8) Cholecystitis: Presented with cholecystitis. Cholecystectomy performed and complicated by postoperative bleeding. (9) Acute blood loss anemia: Postoperative hemorrhage after cholecystectomy. Hgb fell as low as 7.4. Received 3 units pRBC's. Hgb today = 11.0. Follow. (10) Adenocarcinoma, lung: Management per Hematology/Oncology. (11) DVT prophylaxis: Anticoagulants not utilized perioperatively because of postoperative hemorrhage. SCDs ordered. Apixaban resumed because of chronic atrial fibrillation with cardioembolic stroke. (12) Discharge planning issues: Anticipated need for skilled care or inpatient rehab once medical status is stable. Internal Medicine follow-up with Dr. Lewis. Admission and Anticipated Discharge Date Admission Date: June 16, 2019 Subjective Recheck for multiple problems. Patient seen in in her room around 1340. Out of bed in chair. Frustrated with ongoing expressive aphasia. Respiratory status improved. No fever or cough. No chest pain. No other concerns reported by staff. Still has Mercer cath for urinary retention. Review of Systems: Unable to obtain due to expressive aphasia. Physical Exam Constitutional: no acute distress Respiratory: no respiratory distress and no labored breathing Auscultation: + diminished lung sounds (right base) and + rales (few at left base) Cardiovascular: Rate/Rhythm: + irregularly irregular Vessels: + JVD Extr emities: + edema (trace pretibial); no calf tenderness Gastrointestinal (Abdomen): normal bowel sounds, soft, nontender, no hepatosplenomegaly Musculoskeletal: Extremities: no cyanosis Skin: no rashes, warm and dry Neurologic: expressive aphasia PERRL, EOMI no facial palsy motor strength arms and legs 4.5/5 bilat Psychiatric: Orientation: alert Results & Data ([facility]) Vital Signs (Past 12 Hours) Vital Signs Temp Pulse Pulse Resp BP Pulse Ox 06/30/19 19:21 36.9 C 102 H 17 123/75 99 06/30/19 16:00 69 06/30/19 15:25 87 22 115/75 96 06/30/19 11:09 36.6 C 83 19 109/61 98 Laboratory Results 06/30/19 06:33 06/30/19 06:33
[2019-07-01 07:29] LABS: BUN Creatinine Ratio 18.7 (10-20); Calcium 8.9 mg/dl (8.5-10.1); Est GFR (Non-African American) 60.4; Potassium 3.7 mmol/L (3.5-5.1)
[2019-07-01] MEDS: FUROSEMIDE 40 MG TAB PO SCH ×2 (07:45→17:39)
[2019-07-01] MEDS: FLUTICASONE/VILANTEROL 100/25MCG 14 PUFFS/INHALER INH SCH (07:45)
[2019-07-01] MEDS: METOPROLOL TARTRATE 100 MG TAB PO SCH ×2 (07:46→20:45)
[2019-07-01] MEDS: APIXABAN 2.5 MG TAB PO SCH ×2 (07:46→20:44)
[2019-07-01] MEDS: DOCUSATE SODIUM 100 MG CAP PO SCH ×2 (07:47→20:44)
[2019-07-01] MEDS: dilTIAZem HCL 180 MG CAPCR PO SCH (07:49)
[2019-07-01] MEDS: PANTOprazole 40 MG TAB PO SCH (07:49)
[2019-07-01] MEDS: POTASSIUM CHLORIDE 20 MEQ TABCR PO SCH ×2 (07:49→20:44)
--- NOTE | 2019-07-01 07:53 | XRay Report ---
XR chest 1V portable CLINICAL HISTORY: 79 years-old Female presenting with CHF. TECHNIQUE: Portable upright AP view of the chest was obtained. COMPARISON: 06/30/2019. FINDINGS: Left subclavian pacer with single lead to the right ventricular apex. Atherosclerosis of the thoracic aorta. Cardiac silhouette likely enlarged though obscured along the right and left heart borders due to the presence of moderate bilateral layering pleural effusions. Poor aeration of the mid to lower lungs with dense opacities. Pulmonary vascular prominence and congestive change evident. Osteopenia s uspected. Upper abdomen normal. IMPRESSION: 1. Persistent moderate bilateral layering pleural effusions with extensive passive atelectasis. This is unchanged from prior. 2. Cardiomegaly with persistent volume overload though slightly decreased congestive change may be p resent. ACT 112: Negative or not required by law. Electronically signed by: John Silverman M.D. 07/01/2019 7:52 AM
--- NOTE | 2019-07-01 09:49 | Surgery Progress Note ---
Date of Service July 01, 2019 Assessment & Plan (1) Postoperative haemorrhage: patient looks well this AM shakes head yes when asked if she is tolerating a diet some surgical haley removed yesterday, will leave the remaining in place until next week dispo planning to rehab per medicine pt seen and examined with Dr. Chahal Subjective patient sitting up in chair. shaking head yes and no to questions, yesterday was able to say a few words. appears comfortable Physical Exam Physical Exam: awake Constitutional: comfortable; no acute distress Results & Data Vital Signs (Past 12 Hours) Vital Signs Temp Pulse Pulse Pulse Resp BP Pulse Ox 07/01/19 07:41 37.6 C H 88 18 125/68 98 07/01/19 03:52 36.9 C 98 H 18 121/71 97 07/01/19 02:54 86 07/01/19 00:00 36.6 C 81 20 128/75 99 PG Care Time/CCT Total # of Minutes Spent Total Time Spent with Patient: Total time spent is greater than 50% in coordination of care (as documented) at patient's floor/unit and/or counseling patient: Coding Level of Care Code None Diagnoses Postoperative haemorrhage
--- NOTE | 2019-07-01 21:05 | Hospitalist Progress Note ---
Date of Service July 01, 2019 Assessment & Plan (1) Acute CVA (cerebrovascular accident): Developed expressive aphasia and facial palsy on 06/27/2019. Stroke alert called. CT of head without contrast negative. MRI cannot be performed because of pacemaker. Tele-stroke consultation with [facility] obtained. Patient not a candidate for thrombolytic therapy due to recent surgery with hemorrhage. Underlying chronic atrial fibrillation. Anticoagulation with apixaban recommended. Repeat CT 06/27 demonstrated 2.8 cm ischemic stroke in left frontal lobe. Repeat CT today- stable left frontal lesion, no hemorrhage. 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 LDL-c 110. Treat with high-intensity statin. Neurology consulted. (2) CHF (congestive heart failure): Worsening dyspnea 06/27 especially in supine position. Chest x-ray shows chronic right pleural effusion, cardiomegaly, CHF. Echocardiogram performed on 06/18/2019 demonstrated mild concentric LVH, hypokinesis of inferior posterior basal wall, overall LVEF 60-65%. Probable acute left ventricular diastolic heart failure. Received IV furosemide with improvement. Transitioned to oral furosemide. (3) CAD (coronary artery disease): No apparent anginal symptoms. Aspirin held because of recent severe postoperative bleeding. Continue metoprolol and diltiazem. (4) Chronic atrial fibrillation: Chronic AF. Rapid ventricular response associated with CHF. Continue metoprolol and diltiazem for rate control. Apixaban was held for postoperative bleeding, but resumed because of acute ischemic stroke, probably cardioembolic. (5) HTN (hypertension): Continue metoprolol and carvedilol. (6) COPD (chronic obstructive pulmonary disease): Continue Breo Ellipta. (7) Pleural effusion on right: Recurrent right pleural effusion, s/p multiple thoracentesis. Cytology 04/14/19- atypical cells consistent with reactive mesothelial cells. No need for repeat thoracentesis at this time. (8) Cholecystitis: Presented with cholecystitis. Cholecystectomy performed and complicated by postoperative bleeding. (9) Acute blood loss anemia: Postoperative hemorrhage after cholecystectomy. Hgb fell as low as 7.4. Received 3 units pRBC's. Hgb yesterday = 11.0. Follow. (10) Adenocarcinoma, lung: Management per Hematology/Oncology. (11) Dyslipidemia: LDL-c 110. Treat with high-intensity statin - atorvastatin 40 mg daily. (12) DVT prophylaxis: Anticoagulants not utilized perioperatively because of postoperative hemorrhage. SCDs ordered. Apixaban resumed because of chronic atrial fibrillation with cardioembolic stroke. (13) Discharge planning issues: Anticipated need for skilled care or inpatient rehab once medical status is sta ble. Internal Medicine follow-up with Dr. Lewis. Admission and Anticipated Discharge Date Admission Date: June 16, 2019 Subjective Recheck for multiple problems. Patient seen in in her room around 1630. Family visiting. Out of bed in chair. Ongoing expressive aphasia. Respiratory status improved. No other concerns reported by staff. Still has Mercer cath for urinary retention. Review of Systems: Unable to obtain due to expressive aphasia. Physical Exam Constitutional: no acute distress Respiratory: no respiratory distress and no labored breathing Auscultation: + diminished lung sounds (right base) and + rales (few at left base) Cardiovascular: Rate/Rhythm: + irregularly irregular Vessels: + JVD Extremities: + edema (trace pretibial); no calf tenderness Gastrointestinal (Abdomen): normal bowel sounds, soft, nontender, no hepatosplenomegaly Musculoskeletal: Extremities: no cyanosis Skin: no rashes, warm and dry Neurologic: expressive aphasia Psychiatric: Orientation: alert Results & Data ([facility]) Vital Signs (Past 12 Hours) Vital Signs Temp Pulse Resp BP Pulse Ox 07/01/19 20:42 36.5 C 116 H 18 127/76 95 07/01/19 15:22 36.7 C 84 16 114/76 97 07/01/19 11:49 36.7 C 85 24 104/66 95 Laboratory Results 07/01/19 05:57
[2019-07-01] MEDS ORDERED: XOPENEX/ATROVENT 1.25mg/0.5MG NEB COMBO NEB PRN (22:36)
[2019-07-01] MEDS: LORazepam 0.5 MG TAB PO PRN (22:40)
[2019-07-01] MEDS ORDERED: IPRATROPIUM BROMIDE NEB SOLN 0.02% 2.5 ML VIAL INH PRN (22:45)
[2019-07-01] MEDS ORDERED: LEVALBUTEROL 1.25MG/0.5ML NEB INH PRN (22:45)
[2019-07-02 05:59] LABS: Hematocrit (blood only) 32.3 % (37-47); Hemoglobin 10.3 g/dL (12.0-16.0); Mean Corpuscular Hemoglobin 31.6 pg (25-34); Mean Corpuscular Hgb Conc 31.9 g/dL (32-36); Mean Corpuscular Volume 99.1 fL (80-100); Platelet Count 287 K/uL (130-400); RDW Coefficient of Variation 17.2 % (11.5-14.5); RDW Standard Deviation 60.8 fL (36.4-46.3); Red Blood Count 3.26 M/uL (4.2-5.4); White Blood Count 7.06 K/uL (4.8-10.8)
[2019-07-02 06:34] LABS: Calcium 9.1 mg/dl (8.5-10.1); Creatinine Clr Calc Pharmacy 32.2 ml/min; Est GFR (African American) 65.6; Est GFR (Non-African American) 56.6; Potassium 3.8 mmol/L (3.5-5.1)
[2019-07-02] MEDS: FLUTICASONE/VILANTEROL 100/25MCG 14 PUFFS/INHALER INH SCH (07:56)
--- NOTE | 2019-07-02 07:56 | XRay Report ---
XR chest 1V portable HISTORY: Shortness of breath. Congestive heart failure. COMPARISON: Chest 07/01/2019. FINDINGS: No pneumothorax. Moderate bilateral pleural effusions, bibasilar densities, cardiomegaly, a nd mild interstitial pulmonary edema persists. Left-sided single lead pacemaker. IMPRESSION: No change in the mild interstitial pulmonary edema, bilateral pleural effusions, and bibasilar densit ies. ACT 112: Negative or not required by law. Electronically signed by: Saúl Abdalla M.D. 07/02/2019 7:54 AM
[2019-07-02] MEDS: DOCUSATE SODIUM 100 MG CAP PO SCH ×2 (07:58→20:48)
[2019-07-02] MEDS: APIXABAN 2.5 MG TAB PO SCH ×2 (07:58→20:48)
[2019-07-02] MEDS: dilTIAZem HCL 180 MG CAPCR PO SCH (07:58)
[2019-07-02] MEDS: FUROSEMIDE 40 MG TAB PO SCH ×2 (07:58→17:58)
[2019-07-02] MEDS: POTASSIUM CHLORIDE 20 MEQ TABCR PO SCH ×2 (07:58→20:48)
[2019-07-02] MEDS: ATORVASTATIN 40 MG TAB PO SCH (07:58)
[2019-07-02] MEDS: PANTOprazole 40 MG TAB PO SCH (07:58)
[2019-07-02] MEDS: METOPROLOL TARTRATE 100 MG TAB PO SCH ×2 (07:58→20:49)
--- NOTE | 2019-07-02 08:46 | Surgery Progress Note ---
Date of Service July 02, 2019 Assessment & Plan (1) Postoperative haemorrhage: remains stable d/c planning seen with Dr. Chahal Subjective sitting up eating breakfast-able to speak "rice crispies" Results & Data Vital Signs (Past 12 Hours) Vital Signs Temp Pulse Pulse Resp BP Pulse Ox 07/02/19 07:55 36.7 C 110 H 16 113/75 97 07/02/19 03:45 37.1 C 103 H 19 111/67 95 07/01/19 23:17 36.8 C 104 H 20 130/80 100 07/01/19 20:42 36.5 C 116 H 18 127/76 95 PG Care Time/CCT Total # of Minutes Spent Total Time Spent with Patient: Total time spent is greater than 50% in coordination of care (as documented) at patient's floor/unit and/or counseling patient: Coding Level of Care Code None Diagnoses Postoperative haemorrhage
--- NOTE | 2019-07-02 13:02 | Hospitalist Progress Note ---
Date of Service July 02, 2019 Assessment & Plan (1) Acute CVA (cerebrovascular accident): Developed expressive aphasia and facial palsy on 06/27/2019. Stroke alert called. CT of head without contrast negative. MRI cannot be performed because of pacemaker. Tele-stroke consultation with [facility] obtained. Patient not a candidate for thrombolytic therapy due to recent surgery with hemorrhage. Underlying chronic atrial fibrillation. Anticoagulation with apixaban recommended. Repeat CT 06/27 demonstrated 2.8 cm ischemic stroke in left frontal lobe. Repeat CT today- stable left frontal lesion, no hemorrhage. 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 LDL-c 110. Treat with high-intensity statin. Neurology consulted. (2) CHF (congestive heart failure): Worsening dyspnea 06/27 especially in supine position. Chest x-ray shows chronic right pleural effusion, cardiomegaly, CHF. Echocardiogram performed on 06/18/2019 demonstrated mild concentric LVH, hypokinesis of inferior posterior basal wall, overall LVEF 60-65%. Probable acute left ventricular diastolic heart failure. Received IV furosemide with improvement. Urine outputs good. Wt down about 6 kg over past several days. Chest x-ray shows persistent pulmonary vascular congestion, but clinically improved. Transitioned to oral furosemide. (3) CAD (coronary artery disease): No apparent anginal symptoms. Aspirin held because of recent severe postoperative bleeding. Continue metoprolol and diltiazem. (4) Chronic atrial fibrillation: Chronic AF. Rapid ventricular response associated with CHF. Continue metoprolol and diltiazem for rate control. Apixaban was held for postoperative bleeding, but resumed because of acute ischemic stroke, probably cardioembolic. (5) HTN (hypertension): Continue metoprolol and carvedilol. (6) COPD (chronic obstructive pulmonary disease): Continue Breo Ellipta. (7) Pleural effusion on right: Recurrent right pleural effusion, s/p multiple thoracentesis. Cytology 04/14/19- atypical cells consistent with reactive mesothelial cells. No need for repeat thoracentesis at this time. (8) Cholecystitis: Presented with cholecystitis. Cholecystectomy performed and complicated by postoperative bleeding. (9) Acute blood loss anemia: Postoperative hemorrhage after cholecystectomy. Hgb fell as low as 7.4. Received 3 units pRBC's. Hgb today = 10.3. Follow. (10) Adenocarcinoma, lung: Management per Hematology/Oncology. (11) Dyslipidemia: LDL-c 110. Treat with high-intensity statin - atorvastatin 40 mg daily. 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 Usually diet-controlled. Hgb A1C 5.9 on 06/16/19. Continue insulin coverage as needed. (13) DVT prophylaxis: Anticoagulants not utilized perioperatively because of postoperative hemorrhage. SCDs ordered. Apixaban resumed because of chronic atrial fibrillation with cardioembolic stroke. (14) Discharge planning issues: Anticipated need for skilled care or inpatient rehab once medical status is stable. Internal Medicine follow-up with Dr. Lewis. Admission and Anticipated Discharge Date Admission Date: June 16, 2019 Subjective Recheck for multiple problems. Patient seen in in her room around 1120. Out of bed in chair. Ongoing expressive aphasia, slightly improved. Respiratory status improved / stable. No other concerns reported by staff. Still has Mercer cath for urinary retention. Review of Systems: Unable to obtain due to expressive aphasia. Physical Exam Constitutional: no acute distress Eyes: + anicteric sclerae Respiratory: no respiratory distress and no labored breathing Auscultation: + diminished lung sounds (right base) and + rales (few at left base) Cardiovascular: Rate/Rhythm: + irregularly irregular Vessels: + JVD Extremities: + edema (trace pretibial); no calf tenderness Gastrointestinal (Abdomen): normal bowel sounds, soft, nontender, no hepatosplenomegaly Musculoskeletal: Extremities: no cyanosis Skin: no rashes, warm and dry Neurologic: PERRL, EOMI ongoing expressive aphasia (slightly better, sometimes able to say a word or short phrase) no facial palsy motor strength extremities 4.5/5 bilat Psychiatric: Orientation: alert Results & Data ([facility]) Vital Signs (Past 12 Hours) Vital Signs Temp Pulse Resp BP Pulse Ox 07/02/19 11:44 36.3 C L 98 H 20 100/63 95 07/02/19 07:55 36.7 C 110 H 16 113/75 97 07/02/19 03:45 37.1 C 103 H 19 111/67 95 Laboratory Results 07/02/19 05:44 07/02/19 05:44 Diagnostic Findings PORTABLE CHEST X-RAY IMPRESSION: No change in the mild interstitial pulmonary edema, bilateral pleural effusions, and bibasilar densities. ACT 112: Negative or not required by law. Electronically signed by: Saúl Abdalla M.D. 07/02/2019 7:54 AM
--- NOTE | 2019-07-03 06:34 | Surgery Progress Note ---
Date of Service July 03, 2019 Assessment & Plan (1) Postoperative haemorrhage: pt sitting in chair- resting no acute events over weekend saying some words mendoza out has some haley- likely remove prior to d/c to rehab when med stable Results & Data Vital Signs (Past 12 Hours) Vital Signs Temp Pulse Pulse Resp BP Pulse Ox 07/02/19 22:56 36.6 C 120 H 16 173/92 H 92 07/02/19 18:52 36.8 C 103 H 18 117/71 94 PG Care Time/CCT Total # of Minutes Spent Total Time Spent with Patient: Total time spent is greater than 50% in coordination of care (as documented) at patient's floor/unit and/or counseling patient: Coding Level of Care Code None Diagnoses Postoperative haemorrhage
[2019-07-03 06:56] LABS: BUN Creatinine Ratio 18.1 (10-20); Calcium 8.8 mg/dl (8.5-10.1); Creatinine Clr Calc Pharmacy 27.6 ml/min; Est GFR (African American) 54.3; Est GFR (Non-African American) 46.9; Potassium 3.6 mmol/L (3.5-5.1)
[2019-07-03] MEDS: FUROSEMIDE 40 MG TAB PO SCH ×2 (08:51→19:31)
[2019-07-03] MEDS: POTASSIUM CHLORIDE 20 MEQ TABCR PO SCH ×2 (08:51→21:59)
[2019-07-03] MEDS: DOCUSATE SODIUM 100 MG CAP PO SCH ×2 (08:52→21:58)
[2019-07-03] MEDS: METOPROLOL TARTRATE 100 MG TAB PO SCH ×2 (08:52→21:59)
[2019-07-03] MEDS: dilTIAZem HCL 180 MG CAPCR PO SCH (08:52)
[2019-07-03] MEDS: FLUTICASONE/VILANTEROL 100/25MCG 14 PUFFS/INHALER INH SCH (08:52)
[2019-07-03] MEDS: PANTOprazole 40 MG TAB PO SCH (08:52)
[2019-07-03] MEDS: APIXABAN 2.5 MG TAB PO SCH ×2 (08:52→21:58)
[2019-07-03] MEDS: ATORVASTATIN 40 MG TAB PO SCH (08:52)
--- NOTE | 2019-07-03 21:01 | Hospitalist Progress Note ---
Date of Service July 03, 2019 Assessment & Plan (1) Acute CVA (cerebrovascular accident): Developed expressive aphasia and facial palsy on 06/27/2019. Stroke alert called. CT of head without contrast negative. MRI cannot be performed because of pacemaker. Tele-stroke consultation with [facility] obtained. Patient not a candidate for thrombolytic therapy due to recent surgery with hemorrhage. Underlying chronic atrial fibrillation. Anticoagulation with apixaban recommended. Repeat CT 06/27 demonstrated 2.8 cm ischemic stroke in left frontal lobe. Repeat CT today- stable left frontal lesion, no hemorrhage. 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 LDL-c 110. Treat with high-intensity statin. Neurology consulted. Ongoing anticoagulation with apixaban recommended. (2) CHF (congestive heart failure): Worsening dyspnea 06/27 especially in supine position. Chest x-ray shows chronic right pleural effusion, cardiomegaly, CHF. Echocardiogram performed on 06/18/2019 demonstrated mild concentric LVH, hypokinesis of inferior posterior basal wall, overall LVEF 60-65%. Probable acute left ventricular diastolic heart failure. Received IV furosemide with improvement. Urine outputs good. Wt down about 6 kg over past several days. Chest x-ray showed persistent pulmonary vascular congestion, but clinically improved. Transitioned to oral furosemide. (3) CAD (coronary artery disease): No apparent anginal symptoms. Aspirin held because of recent severe postoperative bleeding. Continue metoprolol and diltiazem. (4) Chronic atrial fibrillation: Chronic AF. Rapid ventricular response associated with CHF. Continue metoprolol and diltiazem for rate control. Apixaban was held for postoperative bleeding, but resumed because of acute ischemic stroke, probably cardioembolic. (5) HTN (hypertension): Continue metoprolol and carvedilol. (6) COPD (chronic obstructive pulmonary disease): Continue Breo Ellipta. (7) Pleural effusion on right: Recurrent right pleural effusion, s/p multiple thoracentesis. Cytology 04/14/19- atypical cells consistent with reactive mesothelial cells. No need for repeat thoracentesis at this time. (8) Cholecystitis: Presented with cholecystitis. Cholecystectomy performed and complicated by postoperative bleeding. (9) Acute blood loss anemia: Postoperative hemorrhage after cholecystectomy. Hgb fell as low as 7.4. Received 3 units pRBC's. Hgb yesterday = 10.3. Follow. (10) Adenocarcinoma, lung: Management per Hematology/Oncology. (11) Dyslipidemia: LDL-c 110. Treat with high-intensity statin - atorvastatin 40 mg daily. 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 Usually diet-controlled. Hgb A1C 5.9 on 06/16/19. FBS today = 119. Continue insulin coverage as needed. (13) DVT prophylaxis: Anticoagulants not utilized perioperatively because of postoperative hemorrhage. SCDs ordered. Apixaban resumed because of chronic atrial fibrillation with cardioembolic stroke. (14) Discharge planning issues: Anticipated need forinpatient rehab once medical status is stable. Internal Medicine follow-up with Dr. Lewis. Admission and Anticipated Discharge Date Admission Date: June 16, 2019 Subjective Recheck for multiple problems. Patient seen in in her room around 1900. Out of bed in chair. Expressive aphasia a little better. Respiratory status stable. Mercer cath removed. No other concerns reported by staff. Review of Systems: Unable to obtain due to expressive aphasia. Physical Exam Constitutional: no acute distress Eyes: + anicteric sclerae Respiratory: no respiratory distress and no labored breathing Auscultation: + diminished lung sounds (right base) and + rales (few at left base) Cardiovascular: Rate/Rhythm: + irregularly irregular Vessels: + JVD Extremities: + edema (trace pretibial); no calf tenderness Gastrointestinal (Abdomen): normal bowel sounds, soft, nontender, no hepatosplenomegaly Musculoskeletal: Extremities: no cyanosis Skin: no rashes, warm and dry Psychiatric: Orientation: alert Results & Data ([facility]) Vital Signs (Past 12 Hours) Vital Signs Temp Pulse Pulse Resp BP Pulse Ox 07/03/19 19:26 36.8 C 90 18 117/72 96 07/03/19 15:23 36.6 C 85 20 113/71 99 07/03/19 11:21 36.7 C 111 H 71 H 110/66 97 Laboratory Results Laboratory Results - last 24 hr 07/03/19 05:44 Sodium 137 Potassium 3.6 Chloride 101 Carbon Dioxide 28 Anion Gap 8.0 BUN 20 H Creatinine 1.11 Est Cr Clr Drug Dosing 27.6 Est GFR ( Amer) 54.3 Est GFR (Non-Af Amer) 46.9 BUN/Creatinine Ratio 18.1 Glucose 119 H Calcium 8.8
[2019-07-03] MEDS: LORazepam 0.5 MG TAB PO PRN (23:55)
[2019-07-04] MEDS ORDERED: HYDROmorphone INJ 0.5 MG/0.5 ML SYR IV STA (00:11)
[2019-07-04 01:04] LABS: Hematocrit (blood only) 34.9 % (37-47); Hemoglobin 11.3 g/dL (12.0-16.0); Mean Corpuscular Hemoglobin 31.3 pg (25-34); Mean Corpuscular Hgb Conc 32.4 g/dL (32-36); Mean Corpuscular Volume 96.7 fL (80-100); Mean Platelet Volume 9.4 fL (7.4-10.4); Platelet Count 300 K/uL (130-400); RDW Coefficient of Variation 17.3 % (11.5-14.5); RDW Standard Deviation 60.6 fL (36.4-46.3); Red Blood Count 3.61 M/uL (4.2-5.4); White Blood Count 6.91 K/uL (4.8-10.8)
[2019-07-04 01:23] LABS: BUN Creatinine Ratio 16.9 (10-20); Calcium 8.8 mg/dl (8.5-10.1); Creatinine Clr Calc Pharmacy 24.7 ml/min; Est GFR (African American) 47.5; Potassium 3.9 mmol/L (3.5-5.1)
--- NOTE | 2019-07-04 06:45 | CT Scan Report ---
CT SCAN OF THE ABDOMEN AND PELVIS WITHOUT CONTRAST CLINICAL HISTORY: severe abdominal pain. Recent cholecystectomy COMPARISON STUDY: Biliary ultrasound dated June 17, 2019 TECHNIQUE: CT scan of the abdomen and pelvis was performed from the lung bases to the proximal femurs . Images are reviewed in the axial, sagittal, and coronal planes. IV contrast was not administered fo r this examination. A dose lowering technique was utilized adhering to the principles of ALARA. CT DOSE: 257.41 mGy.cm FINDINGS: Lower chest: There are bilateral pleural effusions right greater than left. There is respiratory stacey on artifact. There are compressive lower right lower lobe atelectatic changes. There are right middle lobe airspace opacity statistically atelectatic. The heart is enlarged with coronary calcifications. There is a hiatal hernia. Liver: The unenhanced liver is normal in size, contour, and attenuation. There is no intrahepatic robin iary ductal dilatation. Gallbladder: The gallbladder is surgically absent. There is a small amount of fluid within the cholec ystectomy bed likely postsurgical. There is an indwelling biliary enteric stent. Spleen: Normal in size and attenuation. Pancreas: Unremarkable. Adrenal glands: Unremarkable. Kidneys: There is a 28 mm left renal cyst. No renal calculi are visualized. There is no hydronephrosi s. There is a 3 mm calcification, likely adjacent to the right ureter as there is no hydronephrosis. This likely represents a phlebolith. Bowel: There are no transition zones indicate bowel obstruction. There is colonic diverticulosis. The re is no evidence of acute diverticulitis. There are no findings to indicate acute appendicitis. Ther e is a pigtail catheter fragment within the rectum. Peritoneum: There is no intraperitoneal free air or abdominal ascites. There is a fat-containing left inguinal hernia Vasculature: There is no evidence of abdominal aortic aneurysm. Atheromatous changes are present with in the aorta and iliac vessels Adenopathy: None. Pelvic viscera: There is pronounced bladder wall thickening with some trabeculation. There is mild pe rivesical stranding. Clinical correlation regards to cystitis is recommended. The uterus is surgicall y absent. Skeletal structures: There is a nonspecific subcutaneous nodule within the lower right anterior abdom inal wall. IMPRESSION: 1. Moderate bilateral pleural effusions with associated atelectatic change 2. Cardiomegaly and coronary artery calcifications 3. Hiatal hernia 4. No evidence of bowel obstruction. No evidence of free air 5. Surgically absent gallbladder. Indwelling biliary enteric stent 6. Pigtail catheter fragment within the rectum 7. Colonic diverticulosis. No evidence of acute diverticulitis 8. Bladder wall thickening, trabeculation, and perivesical stranding. Clinical correlation in regards to cystitis is recommended. ACT 112: Negative or not required by law. Electronically signed by: Theo Traore M.D. 07/04/2019 6:43 AM
--- NOTE | 2019-07-04 07:28 | XRay Report ---
SINGLE VIEW CHEST CLINICAL HISTORY: Follow-up congestive failure. FINDINGS: An AP, portable, upright chest radiograph is compared to study dated 07/02/2019. The examinat ion is degraded by portable technique and patient rotation. A single lead cardiac pacemaker is unchan ged in position. The heart is enlarged noting atherosclerotic calcification of the thoracic aorta. Pu lmonary vascular congestion has improved. There are layering pleural effusions with bibasilar consoli dation. No pneumothorax is seen. The skeletal structures are osteopenic. The bony thorax is grossly i ntact. Clips are noted in the upper abdomen. A biliary stent is in place. IMPRESSION: 1. Cardiomegaly and cardiac pacemaker. Pulmonary vascular congestion has improved from 07/02/2019. 2. Layering pleural effusions with bibasilar consolidation. ACT 112: Negative or not required by law. Electronically signed by: Michele Kelley M.D. 07/04/2019 7:27 AM
[2019-07-04] MEDS: APIXABAN 2.5 MG TAB PO SCH ×2 (08:00→20:46)
[2019-07-04] MEDS: POTASSIUM CHLORIDE 20 MEQ TABCR PO SCH ×2 (08:00→20:46)
[2019-07-04] MEDS: FLUTICASONE/VILANTEROL 100/25MCG 14 PUFFS/INHALER INH SCH (08:00)
[2019-07-04] MEDS: PANTOprazole 40 MG TAB PO SCH (08:00)
[2019-07-04] MEDS: ATORVASTATIN 40 MG TAB PO SCH (08:01)
[2019-07-04] MEDS: dilTIAZem HCL 180 MG CAPCR PO SCH (08:01)
[2019-07-04] MEDS: METOPROLOL TARTRATE 100 MG TAB PO SCH ×2 (08:01→20:46)
[2019-07-04] MEDS: DOCUSATE SODIUM 100 MG CAP PO SCH ×2 (08:02→20:44)
--- NOTE | 2019-07-04 10:11 | Surgery Progress Note ---
Date of Service July 04, 2019 Assessment & Plan (1) Postoperative haemorrhage: seems to be doing well this am some RUQ pain last pm CT- no acute changes- pigtail catheter from ERCP/stent w/n rectum other CBD stent in place to notify GI team re pigtail remove all haley tomorrow Results & Data Vital Signs (Past 12 Hours) Vital Signs Temp Pulse Pulse Resp BP Pulse Ox 07/04/19 07:55 36.5 C 103 H 20 121/64 96 07/04/19 03:38 36.7 C 95 H 18 107/64 97 07/04/19 00:02 92/52 L 07/03/19 23:18 36.5 C 96 H 20 99/50 L 98 PG Care Time/CCT Total # of Minutes Spent Total Time Spent with Patient: Total time spent is greater than 50% in coordination of care (as documented) at patient's floor/unit and/or counseling patient: Coding Level of Care Code None Diagnoses Postoperative haemorrhage
--- NOTE | 2019-07-04 21:45 | Hospitalist Progress Note ---
Date of Service July 04, 2019 Assessment & Plan (1) Cholecystitis: Presented with cholecystitis. Cholecystectomy performed and complicated by postoperative bleeding. (2) Acute blood loss anemia: Postoperative hemorrhage after cholecystectomy. Hgb fell as low as 7.4. Received 3 units pRBC's. Hgb today = 11.3. Follow. (3) Acute CVA (cerebrovascular accident): Developed expressive aphasia and facial palsy on 06/27/2019. Stroke alert called. CT of head without contrast negative. MRI cannot be performed because of pacemaker. Tele-stroke consultation with [facility] obtained. Patient not a candidate for thrombolytic therapy due to recent surgery with hemorrhage. Underlying chronic atrial fibrillation. Anticoagulation with apixaban recommended. Repeat CT 06/27 demonstrated 2.8 cm ischemic stroke in left frontal lobe. Repeat CT today- stable left frontal lesion, no hemorrhage. 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 LDL-c 110. Treat with high-intensity statin. Neurology consulted. Ongoing anticoagulation with apixaban recommended. (4) CHF (congestive heart failure): Worsening dyspnea 06/27 especially in supine position. Chest x-ray shows chronic right pleural effusion, cardiomegaly, CHF. Echocardiogram performed on 06/18/2019 demonstrated mild concentric LVH, hypo kinesis of inferior posterior basal wall, overall LVEF 60-65%. Probable acute left ventricular diastolic heart failure. Received IV furosemide with improvement. Urine outputs good. Wt down about 6 kg over past several days. Chest x-ray 07/01 showed persistent pulmonary vascular congestion, but clinically improved. Transitioned to oral furosemide. Chest x-ray today improved. (5) CAD (coronary artery disease): No apparent anginal symptoms. Aspirin held because of recent severe postoperative bleeding. Continue metoprolol and diltiazem. (6) Chronic atrial fibrillation: Chronic AF. Rapid ventricular response associated with CHF. Continue metoprolol and diltiazem for rate control. Apixaban was held for postoperative bleeding, but resumed because of acute ischemic stroke, probably cardioembolic. (7) HTN (hypertension): Continue metoprolol and carvedilol. (8) COPD (chronic obstructive pulmonary disease): Continue Breo Ellipta. (9) Pleural effusion on right: Recurrent right pleural effusion, s/p multiple thoracentesis. Cytology 04/14/19- atypical cells consistent with reactive mesothelial cells. No need for repeat thoracentesis at this time. (10) Dyslipidemia: LDL-c 110. Treat with high-intensity statin - atorvastatin 40 mg daily. (11) Adenocarcinoma, lung: Management per Hematology/Oncology. 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 Usually diet-controlled. Hgb A1C 5.9 on 06/16/19. FBS today = 88. Continue insulin coverage as needed. (13) DVT prophylaxis: Anticoagulants not utilized perioperatively because of postoperative hemorrhage. SCDs ordered. Apixaban resumed because of chronic atrial fibrillation with cardioembolic stroke. (14) Discharge planning issues: Anticipated need forinpatient rehab once medical status is stable. Internal Medicine follow-up with Dr. Lewis. Admission and Anticipated Discharge Date Admission Date: June 16, 2019 Subjective Recheck for multiple problems. Patient seen in in her room around 1620. Sister visiting. Had an episode of severe RUQ abd pain last night. Stat CT- no acute findings. Pain resolved. No CP. No cough. Dyspnea improved. Expressive aphasia somewhat better. Review of Systems: Unable to obtain due to expressive aphasia. Physical Exam Constitutional: no acute distress Eyes: + anicteric sclerae Respiratory: no respiratory distress and no labored breathing Auscultation: + diminished lung sounds (right base); no rales Cardiovascular: Rate/Rhythm: + irregularly irregular Vessels: + JVD Extremities: + edema (trace pretibial); no calf tenderness Gastrointestinal (Abdomen): normal bowel sounds, soft, nontender, no hepatosplenomegaly Musculoskeletal: Extremities: no cyanosis Skin: no rashes, warm and dry Neurologic: expressive aphasia Psychiatric: Orientation: alert Results & Data ([facility]) Vital Signs (Past 12 Hours) Vital Signs Temp Pulse Pulse Pulse Resp BP Pulse Ox 07/04/19 19:09 36.3 C L 114 H 19 97/62 L 98 07/04/19 15:34 74 07/04/19 15:05 36.4 C L 84 20 109/72 99 07/04/19 11:32 36.8 C 91 H 18 108/65 98 07/04/19 10:12 96 H Laboratory Results 07/04/19 00:47 07/04/19 00:47 Diagnostic Findings PORTABLE CHEST X-RAY FINDINGS: An AP, portable, upright chest radiograph is compared to study dated 07/02/2019. The examination is degraded by portable technique and patient rotation. A single lead cardiac pacemaker is unchanged in position. The heart is enlarged noting atherosclerotic calcification of the thoracic aorta. Pulmonary vascular congestion has improved. There are layering pleural effusions with bibasilar consolidation. No pneumothorax is seen. The skeletal structures are osteopenic. The bony thorax is grossly intact. Clips are noted in the upper abdomen. A biliary stent is in place. IMPRESSION: 1. Cardiomegaly and cardiac pacemaker. Pulmonary vascular congestion has improved from 07/02/2019. 2. Layering pleural effusions with bibasilar consolidation. ACT 112: Negative or not required by law. Electronically signed by: Michele Kelley M.D. 07/04/2019 7:27 AM
--- NOTE | 2019-07-05 07:20 | XRay Report ---
KUB CLINICAL HISTORY: Pigtail catheter in the rectum. FINDINGS: 2 AP, portable, supine abdominal radiographs are compared to study dated 06/23/2019 and brittaney elated with abdominal CT dated 07/04/2019. There is a nonobstructed abdominal bowel gas pattern. A sma ll catheter projects over the rectum. Cholecystectomy clips and a biliary stent are noted in the righ t upper quadrant. Right upper quadrant skin clips are again seen. A surgical drain has been removed a s compared to 06/23/2019. No evidence of intraperitoneal free air is seen on these supine images. Phle boliths are observed in the pelvis. The heart is enlarged and pacemaker leads are noted. There are bi lateral pleural effusions with bibasilar consolidation. The skeletal structures are osteopenic and ap pear intact. Lumbosacral spondylosis is observed. IMPRESSION: 1. Nonobstructed bowel gas pattern. 2. Postoperative changes as above. 3. Cardiomegaly and bilateral pleural effusions with associated consolidation. Electronically signed by: Michele Kelley M.D. 07/05/2019 7:19 AM
[2019-07-05 08:42] LABS: BUN Creatinine Ratio 19.8 (10-20); Calcium 8.6 mg/dl (8.5-10.1); Est GFR (African American) 57.4; Est GFR (Non-African American) 49.6; Potassium 3.8 mmol/L (3.5-5.1)
[2019-07-05] MEDS: METOPROLOL TARTRATE 100 MG TAB PO SCH (08:46)
[2019-07-05] MEDS: APIXABAN 2.5 MG TAB PO SCH (08:46)
[2019-07-05] MEDS: dilTIAZem HCL 180 MG CAPCR PO SCH (08:46)
[2019-07-05] MEDS: DOCUSATE SODIUM 100 MG CAP PO SCH (08:46)
[2019-07-05] MEDS: PANTOprazole 40 MG TAB PO SCH (08:46)
[2019-07-05] MEDS: POTASSIUM CHLORIDE 20 MEQ TABCR PO SCH (08:46)
[2019-07-05] MEDS: ATORVASTATIN 40 MG TAB PO SCH (08:46)
[2019-07-05] MEDS: FLUTICASONE/VILANTEROL 100/25MCG 14 PUFFS/INHALER INH SCH (08:47)
--- NOTE | 2019-07-05 10:15 | Surgery Progress Note ---
Date of Service July 05, 2019 Assessment & Plan (1) Postoperative haemorrhage: No acute changes Patient making very slow progress but able to speak more Tolerating diet and aggressing with physical therapy GI team aware of pigtail catheter and feel that it will pass on its own as it no rmally would To remove all haley today, can follow-up in the surgical clinic within 2 to 3 weeks Results & Data Vital Signs (Past 12 Hours) Vital Signs Temp Pulse Pulse Pulse Resp BP Pulse Ox 07/05/19 07:42 78 07/05/19 07:30 36.8 C 81 14 116/73 98 07/05/19 03:30 36.7 C 86 18 113/67 99 07/04/19 23:29 36.8 C 103 H 19 124/66 96 PG Care Time/CCT Total # of Minutes Spent Total Time Spent with Patient: Total time spent is greater than 50% in coordination of care (as documented) at patient's floor/unit and/or counseling patient: Coding Level of Care Code None Diagnoses Postoperative haemorrhage
--- NOTE | 2019-07-05 11:29 | Hospitalist Progress Note ---
Date of Service July 05, 2019 Assessment & Plan (1) Cholecystitis: Presented with cholecystitis. ERCP performed by GI; pancreatic and biliary stents placed. Laparoscopic cholecystectomy performed and complicated by postoperative bleeding. Biliary stent to be removed by GI in the future. GI will arrange for follow-up. Pancreatic stent expected to dislodge and pass on its own. CT 07/04/19 showed that pigtail pancreatic stent was in the rectum- not a concern and should pass with bowel movements. (2) Acute blood loss anemia: Postoperative hemorrhage after cholecystectomy. Hgb fell as low as 7.4. Received 3 units pRBC's. Hgb 07/03 was 11.3. Follow. (3) Acute CVA (cerebrovascular accident): Developed expressive aphasia and facial palsy on 06/27/2019. Stroke alert called. CT of head without contrast negative. MRI cannot be performed because of pacemaker. Tele-stroke consultation with [facility] obtained. Patient not a candidate for thrombolytic therapy due to recent surgery with he morrhage. Underlying chronic atrial fibrillation. Anticoagulation with apixaban recommended. Repeat CT 06/27 demonstrated 2.8 cm ischemic stroke in left frontal lobe. Repeat CT today- stable left frontal lesion, no hemorrhage. 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 LDL-c 110. Treat with high-intensity statin. Neurology consulted. Ongoing anticoagulation with apixaban recommended. (4) CHF (congestive heart failure): Worsening dyspnea 06/27 especially in supine position. Chest x-ray shows chronic right pleural effusion, cardiomegaly, CHF. Echocardiogram performed on 06/18/2019 demonstrated mild concentric LVH, hypokinesis of inferior posterior basal wall, overall LVEF 60-65%. Probable acute left ventricular diastolic heart failure. Received IV furosemide with improvement. Urine outputs good. Wt down about 6 kg over past several days. Chest x-ray 07/01 showed persistent pulmonary vascular congestion, but clinically improved. Transitioned to oral furosemide. Chest x-ray 07/03 improved. Discharging on previous furosemide dose of 40 mg BID. Ongoing monitoring of clinical status and labs (5) CAD (coronary artery disease): No apparent anginal symptoms. Aspirin held because of recent severe postoperative bleeding. Continue metoprolol and diltiazem. (6) Chronic atrial fibrillation: Chronic AF. Rapid ventricular response associated with CHF on 06/27. Continue metoprolol and diltiazem for rate control. Apixaban was held for postoperative bleeding, but resumed because of acute ischemic stroke, probably cardioembolic. (7) HTN (hypertension): Continue metoprolol and carvedilol. (8) COPD (chronic obstructive pulmonary disease): Continue Breo Ellipta. (9) Pleural effusion on right: Recurrent right pleural effusion, s/p multiple thoracentesis. Cytology 04/14/19- atypical cells consistent with reactive mesothelial cells. No need for repeat thoracentesis at this time. (10) Dyslipidemia: LDL-c 110. Treat with high-intensity statin - atorvastatin 40 mg daily. (11) Adenocarcinoma, lung: Management per Hematology/Oncology. 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 Usually diet-controlled. Hgb A1C 5.9 on 06/16/19. FBS today = 84. Continue insulin coverage as needed. (13) DVT prophylaxis: Anticoagulants not utilized perioperatively because of postoperative hemorrhage. SCDs ordered. Apixaban resumed because of chronic atrial fibrillation with cardioembolic stroke. Ambulating. (14) Discharge planning issues: Needs inpatient rehab. Medically stable. Arrangements being made for transfer to [facility]. Internal Medicine follow-up with Dr. Lewis. GI follow-up for removal of biliary stent to be arranged. Cardiology follow-up with Dr. Arroyo. Admission and Anticipated Discharge Date Admission Date: June 16, 2019 Subjective Recheck for multiple problems. Patient seen in in her room around 1110. Doing well. Expressive aphasia gradually improving, but still very challenging and frustrating for her. No headaches or other neurologic symptoms. Respiratory status is stable. No cough or shortness of breath. No further abdominal pain. Anxious to be transferred to [facility] for inpatient rehabilitation. Physical Exam Constitutional: no acute distress Eyes: + anicteric sclerae Respiratory: no respiratory distress and no labored breathing Auscultation: + diminished lung sounds (right base); no rales Cardiovascular: Rate/Rhythm: + irregularly irregular Vessels: + JVD Extremities: + edema (trace pretibial); no calf tenderness Gastrointestinal (Abdomen): normal bowel sounds, soft, nontender, no hepatosplenomegaly Musculoskeletal: Extremities: no cyanosis Skin: no rashes, warm and dry Neurologic: alert, oriented PERRL, EOMI expressive aphasia, slightly improved motor strength upper and lower extremities 4.5/5 Results & Data ([facility]) Vital Signs (Past 12 Hours) Vital Signs Temp Pulse Pulse Pulse Resp BP Pulse Ox 07/05/19 07:42 78 07/05/19 07:30 36.8 C 81 14 116/73 98 07/05/19 03:30 36.7 C 86 18 113/67 99 07/04/19 23:29 36.8 C 103 H 19 124/66 96 Laboratory Results 07/05/19 07:45
--- NOTE | 2019-07-05 12:25 | Discharge Summary ---
Date of Service Date of Admission: 06/16/19 Date of Discharge: 07/05/19 Admission HPI Per Admitting Provider 79 yo F reports some ?able SOB that has waxed and waned over the past few days. Some possible productive cough. However, the real issue today is that she was up all night vomiting with acute RUQ pain. Workup in the ER includes a CT a/p revealing a dilated CBD to 1.6cm and a distended gallbladder with concerns for cholecystitis. She doesn't have a WBC elevation. TB is 3.2, AST 376, ALT 183, ALK PHOS 350. BNP is 11, 296 and CXR reveals evidence of CHF. She was given Lasix in the ER and is diuresing well and feeling better from a breathing standpoint already. She denies any chest pain, SOB right now, nausea (states she is not hungry though), Principal Diagnosis acute cholecystitis OTHER ACUTE / NEW DIAGNOSES: acute blood loss anemia ischemic stroke with expressive aphasia acute diastolic CHF chronic atrial fibrillation with rapid ventricular response Discharge Data Allergies Allergy/AdvReac Type Severity Reaction Status Date / Time lisinopril Allergy Intermediate RASH Verified 06/16/19 11:45 zolpidem AdvReac Severe hallucinati Verified 06/16/19 11:45 ons Consultations 06/16/19 14:24 ED Decision to Admit Stat 06/16/19 16:59 Consult Case Management - Discharge Planning Routine Consult Gastroenterology Routine 06/17/19 00:17 Consult Cardiology Routine 06/20/19 18:20 Consult Urology Stat 06/20/19 19:47 Consult Lobster Fisherman Routine 06/20/19 20:14 Consult Case Management - Discharge Planning Routine 06/27/19 09:05 Consult Neurology Routine Procedures Performed Operation Date: 06/20/19 07:00 Actual Procedures s Laparoscopic Cholecystectomy(Not Applicable) - Benjy Charlton MD, FACS p Endoscopic Retrograde Cholangiopancreatogram, Endoscopic Ultrasonography Upper, Esophagogastroduodenoscopy (Not Applicable) - Allyssa Clark MD Operation Date: 06/20/19 07:00 <No data on this case meets the specified criteria> Operation Date: 06/20/19 18:30 Actual Procedures p Exploratory Laparoscopy, Possible Open(Not Applicable) - Benjy Charlton MD, FACS Operation Date: 06/20/19 18:55 Actual Procedures p Laparotomy, Oversew Bleeding, Abdominal washout - Benjy Charlton MD, FACS s Laparoscopy - Benjy Charlton MD, FACS Ordered Studies 06/16/19 11:24 CT abd pelvis IV con only Stat 06/17/19 16:59 US liver Routine 06/20/19 07:00 FL ERCP biliary ductal Routine 06/20/19 13:25 US lower EUS PACS images Routine 06/20/19 13:31 US upper EUS PACS images Routine 06/27/19 07:22 CT head/brain wo con Stat 06/27/19 08:04 CT angio head w con Stat CT angio neck with con Stat 06/28/19 08:00 CT head/brain wo con Routine 06/29/19 09:30 CT head/brain wo con Routine 07/04/19 00:11 CT abd pelvis wo con Urgent Hospital Course (1) Cholecystitis: Presented with cholecystitis. ERCP performed by GI 06/20/19; pancreatic and biliary stents placed. Laparoscopic cholecystectomy performed 06/20 and was complicated by postoperative bleeding. Returned to OR for exploration and suture ligation of cystic artery. Biliary stent to be removed by GI in the future. GI will arrange for follow-up. Pancreatic stent expected to dislodge and pass on its own. CT 07/04/19 showed that pigtail pancreatic stent was in the rectum- not a concern and should pass with bowel movements. (2) Acute blood loss anemia: Postoperative hemorrhage after cholecystectomy. Hgb fell as low as 7.4. Received 3 units pRBC's. Hgb 07/03 was 11.3. Follow. (3) Acute CVA (cerebrovascular accident): Developed expressive aphasia and facial palsy on 06/27/2019. Stroke alert called. CT of head without contrast negative. MRI cannot be performed because of pacemaker. Tele-stroke consultation with [facility] obtained. Patient not a candidate for thrombolytic therapy due to recent surgery with hemorrhage. Underlying chronic atrial fibrillation. Anticoagulation with apixaban recommended. Repeat CT 06/27 demonstrated 2.8 cm ischemic stroke in left frontal lobe. Repeat CT 06/28- stable left frontal lesion, no hemorrhage. 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 Treat with high-intensity statin. Neurology consulted. Ongoing anticoagulation with apixaban recommended. (4) CHF (congestive heart failure): Worsening dyspnea 06/27 especially in supine position. Chest x-ray shows chronic right pleural effusion, cardiomegaly, CHF. Echocardiogram performed on 06/18/2019 demonstrated mild concentric LVH, hyp okinesis of inferior posterior basal wall, overall LVEF 60-65%. Probable acute left ventricular diastolic heart failure. Received IV furosemide with improvement. Urine outputs good. Wt down about 6 kg over past several days. Chest x-ray 07/01 showed persistent pulmonary vascular congestion, but clinically improved. Transitioned to oral furosemide. Chest x-ray 07/03 improved. Discharging on previous furosemide dose of 40 mg BID. Ongoing monitoring of clinical status and labs (5) CAD (coronary artery disease): No apparent anginal symptoms. Aspirin held because of recent severe postoperative bleeding. Continue metoprolol and diltiazem. (6) Chronic atrial fibrillation: Chronic AF. Rapid ventricular response associated with CHF on 06/27. Continue metoprolol and diltiazem for rate control. Apixaban was held for postoperative bleeding, but resumed because of acute ischemic stroke, probably cardioembolic. (7) HTN (hypertension): Continue metoprolol and carvedilol. (8) COPD (chronic obstructive pulmonary disease): Continue Breo Ellipta. (9) Pleural effusion on right: Recurrent right pleural effusion, s/p multiple thoracentesis. Cytology 04/14/19- atypical cells consistent with reactive mesothelial cells. No need for repeat thoracentesis at this time. (10) Dyslipidemia: LDL-c 110. Treat with high-intensity statin - atorvastatin 40 mg daily. (11) Adenocarcinoma, lung: Management per Hematology/Oncology. 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 Usually diet-controlled. Hgb A1C 5.9 on 06/16/19. FBS day of discharge 84. No need for insulin therapy at this time. Follow. (13) DVT prophylaxis: Anticoagulants not utilized perioperatively because of postoperative hemorrhage. SCDs ordered. Apixaban resumed because of chronic atrial fibrillation with cardioembolic stroke. Ambulating. (14) Discharge planning issues: Needs inpatient rehab. Medically stable. Arrangements being made for transfer to [facility]. Internal Medicine follow-up with Dr. Lewis. GI follow-up for removal of biliary stent to be arranged. Cardiology follow-up with Dr. Arroyo. Medical Oncology follow-up with Dr. Benjy Shaffer. Total Time Total Time Spent Total Time Spent (In Minutes): 60 Discharge Plan Discharge Items Patient Disposition: Transfer Inpatient Rehab Fac Reason For Visit: cholecystitis Discharge Diagnosis: cholecystitis s/p laparoscopic cholecystectomy s/p ERCP with biliary and pancreatic stent placements stroke with expressive aphasia Condition on Discharge: Good Activity: Per Instructions section Lifting: No more than 10 pounds Bathing Comment: may shower; no soaking in tubs Sexual Activity: When tolerated Exercise/Sports: Wait until after follow-up appointment Exercise Comment: light activity for 3 weeks Non-emergency contact: Primary Care Provider and Hospitalist Call non-emergency contact if: you have any medication questions, your symptoms worsen, your pain is not controlled, your pain is worsening, you have a fever, your temperature is above 101.5, your wound has increased redness, your wound has increased drainage and your wound pain has increased Follow-up/Referrals: Benjy Charlton MD, FACS [Physician] - (Please call office for appointment.) Binu Lewis, [Primary Care Provider] - (Please call office for appointment at time of discharge from your facility.) Diet: Carb Consistent or DM2 and Heart Healthy Addtl Attending Provider Instructions: MEDICAL INSTRUCTIONS: Fall precautions. Aspiration precautions. Skin precautions. Please check CBC and basic metabolic profile twice a week x 2, then as clinically indicated. Patient has a pigtail pancreatic duct catheter that is expected to pass spontaneously; do not be alarmed if it is seen in her stool. Patient has anxiety, severe at times. Responds well to reassurance / support. Thank you for receiving this patient in transfer. Please call if you have any questions. Obie Mark SPECIAL SURGICAL CARE INSTRUCTIONS: * Cover incisions and change daily for comfort/drainage. * May use ibuprofen for pain as tolerated. * Expect some swelling and bruising. Call your doctor if: * Temperature above 101 degrees * Pain not relieved by pain medicine ordered * There is increased drainage or redness from any incision * You have any unanswered questions or concerns [phone]. FOLLOW UP VISIT: If not already scheduled, please call the office for a follow-up visit within 1 week for staple removal OFFICE PHONE NUMBER: Dr. Charlton Office Pending Studies at Discharge: Yes Studies:: surgical pathology Stand-Alone Forms: [facility] Skilled Items Patient informed of condition?: Yes DNR: No Discharge Level of Care: Acute rehab Communicable Disease: No Discharge Prognosis: Improving Lines: None Urinary Catheter: No Medications and DC Order Prescriptions: New atorvastatin 40 mg Tablet 40 mg PO QAM 30 Days Qty: 30 RF: 0 potassium chloride 10 mEq capsule, extended release 10 meq PO BID 30 Days Qty: 60 RF: 0 Continued Symbicort 160-4.5 mcg/actuation HFA aerosol inhaler 2 puff INHALATION Q12H Qty: 10.2 RF: 11 furosemide 40 mg tablet 40 mg PO BID Qty: 30 RF: 0 Vitron-C 65 mg iron- 125 mg tablet,delayed release (DR/EC) 1 tab PO DAILY RF: 0 trazodone 50 mg tablet 50 mg PO HS RF: 0 nystatin 100,000 unit/gram powder 1 appln TOP BID RF: 0 triamcinolone acetonide 0.1 % cream 1 appln TOP BID RF: 0 metoprolol tartrate 100 mg Tablet 100 mg PO BID RF: 0 lorazepam 0.5 mg Tablet 0.5 mg PO HS PRN (Reason: Sleep) RF: 0 pantoprazole 40 mg Tablet,Delayed Release (Dr/Ec) 40 mg PO DAILY RF: 0 nitroglycerin 0.4 mg Tablet, Sublingual 0.4 mg Sublingual UD PRN (Reason: Chest Pain) RF: 0 folic acid 1 mg Tablet 1 mg PO DAILY RF: 0 docusate sodium 100 mg Capsule 100 mg PO BID RF: 0 polyethylene glycol 3350 [Miralax] 17 gram/dose Powder 17 g PO QAM RF: 0 Spiriva Respimat 2.5 mcg/actuation mist 2 inh INHALATION DAILY RF: 0 aspirin [Aspirin Low Dose] 81 mg Tablet,Delayed Release (Dr/Ec) 81 mg PO QAM RF: 0 ondansetron HCl [Zofran] 8 mg Tablet 8 mg PO TID PRN (Reason: Nausea And Vomiting) RF: 0 diltiazem HCl 360 mg Capsule,Extended Release 24hr 360 mg PO DAILY RF: 0 Eliquis 2.5 mg Tablet 2.5 mg PO BID RF: 0 magnesium oxide 400 mg magnesium capsule 400 mg PO DAILY RF: 0 albuterol sulfate [Ventolin HFA] 90 mcg/actuation Hfa Aerosol Inhaler 2 puff INHALATION QID PRN (Reason: Wheezing) RF: 0 Discontinued megestrol 400 mg/10 mL (40 mg/mL) suspension 200 mg PO BID Qty: 240 RF: 3 prochlorperazine maleate [Compazine] 10 mg Tablet 10 mg PO Q6H PRN (Reason: Nausea) RF: 0 Admission Data Admit Date/Time: 06/16/19 14:57 Attending Provider: Obie Flores Admit Provider: Sabiha Degroot Primary Care Provider: Binu Lewis Other Providers: Kaelyn Black I. ; [facility] ; Jaki Bennett at [place] ; Sabiha Degroot ; Edouard Campbell ; Darrius Avalos ; Jaime Saxena ; Fernando Arias ; Obie Johnson ; Jose Cuevas
== END 2019-07-05 14:37 | DRG 417 ==
LOC: ED 09:43 → SUATTDRO 14:57 → 2W 14:57 → 1E 06-20 15:50 → 2W 06-23 11:34 → 2S 06-24 06:34

== ENCOUNTER 2019-08-21 08:57 | Inpatient (IN) ==
[2019-08-21] MEDS ORDERED: ALBUTEROL HFA 8 GM INHALER INH ONE (09:21)
[2019-08-21] MEDS ORDERED: MAGNESIUM SULFATE / D5W 1 GM/100 ML BAG IV ONE (09:21)
--- NOTE | 2019-08-21 09:33 | XRay Report ---
XR chest 1V portable HISTORY: 79 years-old Female Chest Pain acute atypical chest pain COMPARISON: Chest radiograph 07/04/2019 TECHNIQUE: Portable AP view of the chest FINDINGS: Cardiac silhouette is enlarged, unchanged. Moderate pleural effusions. Unchanged left subclavian pace r. Calcified plaque of the thoracic aorta. No pneumothorax. Pulmonary vascular congestion with right midlung and right greater than left bibasilar opacities. IMPRESSION: 1. Cardiomegaly with pulmonary vascular congestion. 2. Moderate pleural effusions have mildly increased in size from comparison. 3. Right midlung and right greater than left bibasilar consolidation. ACT 112: Negative or not required by law. The above report was generated using voice recognition software. It may contain grammatical, syntax o r spelling errors. Electronically signed by: Haim Norris M.D. 08/21/2019 9:31 AM
[2019-08-21 09:49] LABS: Basophils # (auto) 0.03 K/uL (0-0.2); Basophils % (auto) 0.6 %; Eosinophils # (auto) 0.19 K/uL (0-0.5); Eosinophils % (auto) 3.7 %; Hematocrit (blood only) 31.7 % (37-47); Immature Granulocytes # (auto) 0.02 K/uL (0.00-0.02); Immature Granulocytes % (auto) 0.4 %; Lymphocytes # (auto) 1.27 K/uL (1.2-3.4); Lymphocytes % (auto) 24.9 %; Mean Corpuscular Hemoglobin 31.3 pg (25-34); Mean Corpuscular Hgb Conc 31.5 g/dL (32-36); Mean Corpuscular Volume 99.4 fL (80-100); Mean Platelet Volume 8.8 fL (7.4-10.4); Monocytes # (auto) 0.77 K/uL (0.11-0.59); Monocytes % (auto) 15.1 %; Neutrophils # (auto) 2.82 K/uL (1.4-6.5); Neutrophils % (auto) 55.3 %; Platelet Count 194 K/uL (130-400); RDW Coefficient of Variation 17.1 % (11.5-14.5); RDW Standard Deviation 62.5 fL (36.4-46.3); Red Blood Count 3.19 M/uL (4.2-5.4)
[2019-08-21 10:03] LABS: INR 1.1 (0.9-1.1); Partial Thromboplastin Time 26.7 Seconds (21.0-31.0); Prothrombin Time 11.5 Seconds (9.0-12.0)
[2019-08-21 10:07] LABS: Alanine Aminotransferase 30 U/L (12-78); Albumin Level 2.5 gm/dl (3.4-5.0); Aspartate Aminotransferase 70 U/L (15-37); BUN Creatinine Ratio 20.4 (10-20); Blood Urea Nitrogen 26 mg/dl (7-18); Calcium 8.8 mg/dl (8.5-10.1); Carbon Dioxide 30 mmol/L (21-32); Chloride 106 mmol/L (98-107); Creatinine Clr Calc Pharmacy 25.1 ml/min; Est GFR (Non-African American) 40.6; Glucose 96 mg/dl (70-99); Lipase 263 U/L (73-393); Potassium 4.4 mmol/L (3.5-5.1); Sodium 141 mmol/L (136-145)
[2019-08-21 10:12] LABS: Albumin Globulin Ratio 0.6 (0.9-2); Alkaline Phosphatase 183 U/L (45-117); Bilirubin,Total 0.4 mg/dl (0.2-1); Creatine Kinase 24 U/L (26-192); Creatine Kinase MB < 1.0 ng/ml (0.5-3.6); Globulin 4.2 gm/dl (2.5-4.0); NT Pro B Type Natriuretic Pept 5911 pg/ml (0-1800); Total Protein 6.7 gm/dl (6.4-8.2); Troponin I < 0.015 ng/ml (0-0.045)
[2019-08-21] MEDS ORDERED: FUROSEMIDE 40 MG/4 ML VIAL IV STA (10:30)
[2019-08-21] MEDS ORDERED: LEVOFLOXACIN/D5W 750 MG/150 ML BAG IV STA (10:32)
[2019-08-21] MEDS ORDERED: CEFEPIME 2,000 MG/20 ML VIAL IV STA (10:32)
--- NOTE | 2019-08-21 10:41 | Electrocardiogram Report ---
Test Reason : Blood Pressure : / mmHG Vent. Rate : 101 BPM Atrial Rate : 100 BPM P-R Int : 000 ms QRS Dur : 078 ms QT Int : 304 ms P-R-T Axes : 000 001 -13 degrees QTc Int : 394 ms Atrial fibrillation with rapid ventricular response Low voltage QRS Abnormal ECG When compared with ECG of 22-JUN-2019 07:12, Nonspecific T wave abnormality no longer evident in Lateral leads QT has shortened Confirmed by Km Meng ([id number]) on 08/21/2019 10:41:16 AM Referred By: REFERRED SELF Confirmed By:Km Meng
[2019-08-21 10:50] LABS: C Reactive Protein 1.84 mg/dl (0-0.29); Ferritin 178.7 ng/ml (8-388)
--- NOTE | 2019-08-21 11:18 | History & Physical Report ---
Date of Service August 21, 2019 Assessment & Plan (1) Acute exacerbation of CHF (congestive heart failure): Increased hypoxia and work of breathing. Suspect CHF exacerbation with preserved EF with increased pleural effusions, pulmonary edema and worsening lower extremity edema with a 20 lb weight gain over the past month. On Lasix 40mg PO BID, which we will cont IV now with first dose already given in the ER. Pt has declined Mercer catheter. Discussed using a Purwick for patient who is a fall risk with known recent falls at the facility, and is on Eliquis. Strict I/Os. Low sodium diet. Daily weights. Cardiology consult. Echo performed last month reveals preserved EF. (2) Pleural effusion, bilateral: Proceed with diuresis and follow clinical improvement. If no improvement, may need to consider pulm involvement with h/o lung cancer. (3) Atrial fibrillation with RVR: Chronic atrial fibrillation on metoprolol 100 BID and diltiazem 240mg daily. Of note, diltiazem was changed from 360mg daily to 240mg daily while patient was at [facility] on 08/04/2019. She didn't receive her morning medications, which are ordered for now. She is anticoagulated on Eliquis. Cont to monitor on telemetry. (4) Pneumonia: Questionable bilateral infiltrates on imaging, however, patient is not reporting any recent infectious symptoms and nursing staff denies knowledge of any fevers, cough or chills in last few days. Covering for possible pneumonia empirically pending clinical improvement. Changed to Ceftriaxone and Doxycycline. Procalcitonin was later checked and negative making a LRTI less likely. COVID-19 pending. Monitor for clinical improvement overnight. Blood cultures pending. (5) Adenocarcinoma of lung: chronic, RUL nonsmall cell lung cancer with 2.1 cm mass (Dx 11/09/2017). R pleural effusion pleural cytology negative for malignancy on several occasions in 2019. She completed 4 cycles of Alimta and carboplatin between 12/14/2017- 04/01/2018, but was unable to receive further chemotherapy because of contraindications and decline in physical condition. She was also deemed not a surgical candidate. (6) CVA, old, aphasia: Recent hospitalization with perioperative ischemic stroke. Still has some ? receptive and expressive aphasia. Supportive care as tolerated. She is ambulating well, but will hold off on PT/OT assessments until COVID-19 status definitively determined. (7) Elevated LFTs: Recently elevated LFTs with acute cholecystitis and s/p lap ning. These are elevated but are lower than at prior hospital discharge. Will ensure trend continues to decrease. No further workup at this time. (8) Stage 4 chronic kidney disease: Improved from baseline. Renally dose meds and avoid nephrotoxic substances as able. (9) COPD (chronic obstructive pulmonary disease): Chronic, stable. No wheezing heard on exam, no coughing or productive sputum noticed or reported. Cont home inhalers and supplemental oxygen. (10) Diabetes mellitus, type II: A1C 5.9 in May 2019. Cont Correction factor only at this time. May be able to stop fingersticks if stable and at goal. (11) Anemia: Around baseline. Influenced by recent surgeries and prolonged recent hospitalization with frequent blood draws. Cont to monitor PRN. 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 Dispo-tele DO Bg Page Hospitalist Admission and Anticipated Discharge Date Anticipated date of discharge: 08/24/19 History of Present Illness Chief Complaint: SOB Primary Care Provider: [facility] Blaze 79 yo F with a h/o heart failure and hospitalization 1 month ago presents with worsening shortness of breath and is found to have new infiltrates on CXR. She has recently had a stroke with deficits including receptive and expressive aphasia. Therefore, although she is oriented, obtaining the history is very difficult. I asked her multiple times whether or not she had been coughing. She was unable to give me a complete answer although did respond no initially, then appeared to change her mind and looked confused. She cannot tell me for how long she has been short of breath. She denies fevers, chest pain, increased work of breathing currently, no abdominal pain, diarrhea, changes in her stool. However, again she is a very poor historian. She did mention that she has fallen and records do reflect this. She has a bruise on her right forehead that is a darker purple. Neuro exam is grossly normal and she is able to ambulate in the room with minimal assistance. She is on Eliquis and stroke was thought to be embolic with her known history of atrial fibrillation. She is in atrial fibrillation today and heart rate is tachy in the low 100s. Lung auscultation is also difficult with minimal airflow noted. No rales, wheezes or crackles are heard. Of note, I did ask if we could place a Mercer which she initially agreed to, however, she became visibly scared and tearful about the catheter just prior to placement and she adamantly refused this despite knowing we will be giving her more diuretic. I could not gather from her what the concern was. ROS was otherwise negative and she confirmed that Viral is her point of contact. Historically she was admitted to [facility] 06/16/19-07/07/19. She had multiple issues including acute cholecystitis s/p lap ning c/b acute blood loss anemia and post-operative stroke. She also received treatment for acute diastolic CHF diuring this stay. She was sent to [facility] and did well with her rehab, then was sent back to [facility] on 07/25/19. At that time her weight was 91 lbs. Today her weight is up approximately 20 lbs. She is on 2L oxygen continuously at baseline. She denies eating any salt. Lasix 40 IV , Cefepime and Levaquin given in the ER. Allergies Allergy/AdvReac Type Severity Reaction Status Date / Time lisinopril Allergy Intermediate RASH Verified 08/21/19 10:37 zolpidem AdvReac Severe hallucinati Verified 08/21/19 10:37 ons Home Medications Home Medications Medication Instructions Recorded Confirmed Type metoprolol tartrate 100 mg PO BID 04/21/18 08/21/19 History pantoprazole 40 mg PO DAILY 04/21/18 08/21/19 History folic acid 1 mg PO DAILY 04/28/18 08/21/19 History nitroglycerin 0.4 mg SUBLINGUAL UD PRN 04/28/18 08/21/19 History Eliquis 2.5 mg PO BID 07/10/18 08/21/19 History aspirin [Aspirin Low Dose] 81 mg PO QAM 07/10/18 08/21/19 History furosemide 40 mg tablet 40 mg PO BID #30 tab 12/20/18 08/21/19 History iron,carbonyl 65 mg-vitamin C 125 1 tab PO DAILY 12/21/18 08/21/19 History mg tablet,delayed release magnesium oxide 400 mg PO DAILY cap 12/21/18 08/21/19 History nystatin 100,000 unit/gram topical 1 appln TOP BID 12/21/18 08/21/19 History powder trazodone 50 mg tablet 25 mg PO HS PRN 12/21/18 08/21/19 History budesonide-formoterol HFA 160 2 puff INHALATION Q12H #10.2 gm 05/11/19 08/21/19 Rx mcg-4.5 mcg/actuation aerosol inhaler docusate sodium 100 mg PO BID 06/16/19 08/21/19 History polyethylene glycol 3350 [Miralax] 17 g PO QAM 06/16/19 08/21/19 History Spiriva Respimat 2 inh INHALATION DAILY 07/05/19 08/21/19 History diltiazem HCl 240 mg PO QAM 08/21/19 08/21/19 History potassium chloride 10 meq PO DAILY 08/21/19 08/21/19 History Past Med/Surg History Medical History A-fib (Inactive) Ok to continue Eliquis and restart all AVN blockers Acute on chronic renal failure Adenocarcinoma, lung (Chronic) "bronchoscopy / EBUS 11/09/17 bx RUL mass" Anemia CAD (coronary artery disease) Cancer LUNG CANCER S/P RECENT CHEMO (COMPLETED 04/01/18) Chronic obstructive pulmonary disease Diabetes mellitus type 2 with complications Diabetes mellitus, type II (Inactive) Dyslipidemia GERD (gastroesophageal reflux disease) Hiatal hernia Hyperlipidemia Hypertension Myocardial Infarction 1992= MEDICAL MANAGEMENT Osteoarthritis Osteoporosis Pleural effusion on right PNA (pneumonia) (Inactive) Postoperative haemorrhage Recurrent pleural effusion on right Tachy-rex syndrome s/p permanent pacemaker Surgical History History of adenoidectomy History of appendectomy History of arthroscopy RIGHT KNEE History of cardiac cath 1992= NO STENTS History of cataract surgery BILATERAL History of section X4 History of colonoscopy History of hysterectomy JOSE WITH BSO History of lung surgery NAVIGATIONAL BRONCH/EBUS= 11/09/17= GRADE I VIEW, MAC 3, ETT 8.0 AT [facility] History of tonsillectomy History of tooth extraction S/P ERCP S/P laparoscopic cholecystectomy Family History Grandfather (Paternal) Family hx of colon cancer Social History Preferred Language: Uzbek Communication Ability: Effective Communication Ability Comment: periods of expressive aphasia Visual Impairment: No Limitations Wax Pattern Repairer Required: No Beliefs That Will Affect Care: None marital status: Current Living Situation: Family Current Living Situation Comment: [facility] Other Information That Helps Us Care for You: No Feels Safe at Home: Yes Smoking Status: Former smoker Cigarettes Per Day: 10 ; Second Hand Exposure: No ; Hx Alcohol Use: No Hx Substance Use: No Review of Systems Review of Systems: All systems reviewed & are unremarkable except as noted in Subjective Physical Exam Physical Exam: CONSTITUTIONAL: WNWD, vitals as above, generally well- appearing EYES: EOMI bilaterally, PERRL, normal conjunctivae, no scleral icterus ENT: external ear and nose normal, oropharynx clear, mucous membranes are moist. NECK: trachea midline, no lymphadenopathy RESPIRATORY: clear to auscultation bilaterally, with diminished breath sounds bilaterally (R more diminished than L). No crackles, rales or wheezes, normal respiratory effort. supplemental oxygen via nasal canula in place. CARDIOVASCULAR: tachy, irregular rate and rhythm, S1 and 2 heard without murmurs, gallops or rubs, no JVD, 3+ peripheral edema in bilateral lower extremities, no carotid bruits GASTROINTESTINAL: soft, nontender, nondistended MUSCULOSKELETAL: strength 5/5 throughout, head is normocephalic and atraumatic, ambulates with minimal assistance. SKIN: warm and dry, ecchymosis to R forehead. NEUROLOGIC: No facial palsy, no dysarthria. +word finding difficulty. +clear difficulty processing information. CN 2-12 grossly intact, normal cognition, normal speech, no tremor PSYCHIATRIC: alert cooperative and oriented. Results & Data Results & Data ([facility]) Vital Signs (Past 12 Hours) Vital Signs Temp Pulse Resp BP Pulse Ox 08/21/19 09:32 106 H 21 125/52 L 91 08/21/19 09:15 104 H 22 152/82 H 100 08/21/19 09:09 86 L 08/21/19 09:00 36.5 C 104 H 28 H 131/75 96 Laboratory Results Short CBC 08/21/19 Range/Units 09:32 WBC 5.10 (4.8-10.8) K/uL Hgb 10.0 L (12.0-16.0) g/dL Hct 31.7 L (37-47) % Plt Count 194 (130-400) K/uL BMP 08/21/19 09:32 Sodium 141 Potassium 4.4 Chloride 106 Carbon Dioxide 30 BUN 26 H Creatinine 1.25 H Glucose 96 Calcium 8.8 Cardiac Enzymes 08/21/19 Range/Units 09:32 Total Creatine Kinase 24 L (26-192) U/L CK-MB (CK-2) < 1.0 (0.5-3.6) ng/ml Troponin I < 0.015 (0-0.045) ng/ml Liver Function 08/21/19 Range/Units 09:32 Total Bilirubin 0.4 (0.2-1) mg/dl AST 70 H (15-37) U/L ALT 30 (12-78) U/L Alkaline Phosphatase 183 H (45-117) U/L Albumin 2.5 L (3.4-5.0) gm/dl Diagnostic Findings XR chest 1V portable HISTORY: 79 years-old Female Chest Pain acute atypical chest pain COMPARISON: Chest radiograph 07/04/2019 TECHNIQUE: Portable AP view of the chest FINDINGS: Cardiac silhouette is enlarged, unchanged. Moderate pleural effusions. Unchanged left subclavian pacer. Calcified plaque of the thoracic aorta. No pneumothorax. Pulmonary vascular congestion with right midlung and right greater than left bibasilar opacities. IMPRESSION: 1. Cardiomegaly with pulmonary vascular congestion. 2. Moderate pleural effusions have mildly increased in size from comparison. 3. Right midlung and right greater than left bibasilar consolidation. Code Status & VTE Plan Code Status Full Code as verified with patient on admission. She is also listed as a full code on the [facility] order sheet. VTE Prophylaxis Plan VTE Prophylaxis will be ordered: Yes (1) Adenocarcinoma of lung Laterality: right Qualified Code(s): C34.91 - Malignant neoplasm of unspecified part of right bronchus or lung
[2019-08-21 12:03] LABS: Influenza A virus by PCR Neg for Influ A (Neg); Influenza B virus by PCR Neg for Influ B (Neg)
--- NOTE | 2019-08-21 13:01 | Emergency Department Note ---
History of Present Illness General Chief complaint: Shortness of Breath/Dyspnea Time Seen by Provider: 08/21/19 09:12 Source: patient, EMS, RN notes reviewed and old records reviewed Mode of arrival: EMS Limitations: no limitations History of Present Illness Provider complaint: Shortness of breath Onset (ago): hour(s) 2 Location: chest Relieved By: + immobilization and + other (Oxygen) Exacerbated By: + movement Associated symptoms: + denies other symptoms Treatments prior to arrival: other (Oxygen) This is an 79-year-old female who presents emergency department complaining of shortness of breath. The patient woke up this morning and felt extremely short of breath. She is normally on 2 L of oxygen at the retirement however today it is bumped up to 4. The patient denies any chest pain or abdominal pain. EMS was summoned and placed the patient on higher amount of oxygen with success in her symptoms. The patient is on Lasix and does have a history of congestive heart failure. Home Medications Home Medications Medication Instructions Recorded Confirmed Type lorazepam 0.5 mg PO HS PRN 04/21/18 08/21/19 History metoprolol tartrate 100 mg PO BID 04/21/18 08/21/19 History pantoprazole 40 mg PO DAILY 04/21/18 08/21/19 History folic acid 1 mg PO DAILY 04/28/18 08/21/19 History nitroglycerin 0.4 mg SUBLINGUAL UD PRN 04/28/18 08/21/19 History Eliquis 2.5 mg PO BID 07/10/18 08/21/19 History aspirin [Aspirin Low Dose] 81 mg PO QAM 07/10/18 08/21/19 History diltiazem HCl 360 mg PO DAILY 07/10/18 08/21/19 History ondansetron HCl [Zofran] 8 mg PO TID PRN 07/10/18 08/21/19 History furosemide 40 mg tablet 40 mg PO BID #30 tab 12/20/18 08/21/19 History iron,carbonyl 65 mg-vitamin C 125 1 tab PO DAILY 12/21/18 08/21/19 History mg tablet,delayed release magnesium oxide 400 mg PO DAILY cap 12/21/18 08/21/19 History nystatin 100,000 unit/gram topical 1 appln TOP BID 12/21/18 08/21/19 History powder trazodone 50 mg tablet 50 mg PO HS 12/21/18 08/21/19 History albuterol sulfate [Ventolin HFA] 2 puff INHALATION QID PRN 12/30/18 08/21/19 History triamcinolone acetonide 0.1 % 1 appln TOP BID 03/28/19 08/21/19 History topical cream budesonide-formoterol HFA 160 2 puff INHALATION Q12H #10.2 gm 05/11/19 08/21/19 Rx mcg-4.5 mcg/actuation aerosol inhaler docusate sodium 100 mg PO BID 06/16/19 08/21/19 History polyethylene glycol 3350 [Miralax] 17 g PO QAM 06/16/19 08/21/19 History Spiriva Respimat 2 inh INHALATION DAILY 07/05/19 08/21/19 History potassium chloride 10 meq PO DAILY 08/21/19 08/21/19 History Allergies Allergy/AdvReac Type Severity Reaction Status Date / Time lisinopril Allergy Intermediate RASH Verified 08/21/19 10:37 zolpidem AdvReac Severe hallucinati Verified 08/21/19 10:37 ons Past Med/Surg History Medical History A-fib (Inactive) Ok to continue Eliquis and restart all AVN blockers Acute on chronic renal failure Adenocarcinoma, lung (Chronic) "bronchoscopy / EBUS 11/09/17 bx RUL mass" Anemia CAD (coronary artery disease) Cancer LUNG CANCER S/P RECENT CHEMO (COMPLETED 04/01/18) Chronic obstructive pulmonary disease Diabetes mellitus type 2 with complications Diabetes mellitus, type II (Inactive) Dyslipidemia GERD (gastroesophageal reflux disease) Hiatal hernia Hyperlipidemia Hypertension Myocardial Infarction 1992= MEDICAL MANAGEMENT Osteoarthritis Osteoporosis Pleural effusion on right PNA (pneumonia) (Inactive) Postoperative haemorrhage Recurrent pleural effusion on right Tachy-rex syndrome s/p permanent pacemaker Surgical History History of adenoidectomy History of appendectomy History of arthroscopy RIGHT KNEE History of cardiac cath 1992= NO STENTS History of cataract surgery BILATERAL History of section X4 History of colonoscopy History of hysterectomy JOSE WITH BSO History of lung surgery NAVIGATIONAL BRONCH/EBUS= 7/17/18= GRADE I VIEW, MAC 3, ETT 8.0 AT [facility] History of tonsillectomy History of tooth extraction S/P ERCP S/P laparoscopic cholecystectomy Family History Grandfather (Paternal) Family hx of colon cancer Social History Preferred Language: Chinese Communication Ability: Effective Communication Ability Comment: periods of expressive aphasia Visual Impairment: No Limitations Payroll Benefits Clerk Required: No Beliefs That Will Affect Care: None marital status: Current Living Situation: Family Current Living Situation Comment: [facility] Other Information That Helps Us Care for You: No Feels Safe at Home: Yes Smoking Status: Former smoker Cigarettes Per Day: 10 ; Second Hand Exposure: No ; Hx Alcohol Use: No Hx Substance Use: No Review of Systems A total of 10 systems reviewed and were otherwise negative Physical Exam Vital Signs Vital Signs - 24 hr 08/21/19 09:00 08/21/19 09:09 08/21/19 09:15 Temperature 36.5 C Temperature Source Oral Pulse Rate 104 H 104 H Pulse Rate from SpO2 Sensor 98 H Pulse Rhythm Irregular Pulse Strength Normal Respiratory Rate 28 H 22 Respiratory Effort / Characteristics Spontaneous Accessory Muscle Use Labored Short of Breath SOB on Exertion Respiratory Depth Shallow Respiratory Pattern Regular Blood Pressure 131/75 152/82 H Blood Pressure Mean 93 91 Blood Pressure Position Sitting Pulse Oximetry 96 86 L 100 Oxygen Delivery Method Nasal Cannula Room Air Nasal Cannula Nasal Cannula Oxygen Flow Rate 4 0 4 Sepsis Recent Fever Within 48 Hours No Sepsis New/Unexplained Change in Mental Status No Sepsis Action Taken by Nursing No Action Required Oxygen Flow Rate - Titration 4 2 Pulse Oximetry Post Tiitration 96 99 08/21/19 09:32 08/21/19 10:00 08/21/19 10:30 Temperature Temperature Source Pulse Rate 106 H 99 H 93 H Pulse Rate from SpO2 Sensor 96 H 98 H 102 H Pulse Rhythm Pulse Strength Respiratory Rate 21 13 12 Respiratory Effort / Characteristics Respiratory Depth Respiratory Pattern Blood Pressure 125/52 L 106/60 116/67 Blood Pressure Mean 71 65 72 Blood Pressure Position Pulse Oximetry 91 97 95 Oxygen Delivery Method Nasal Cannula Oxygen Flow Rate 4 4 4 Sepsis Recent Fever Within 48 Hours Sepsis New/Unexplained Change in Mental Status Sepsis Action Taken by Nursing Oxygen Flow Rate - Titration Pulse Oximetry Post Tiitration 08/21/19 11:02 Temperature Temperature Source Pulse Rate 101 H Pulse Rate from SpO2 Sensor 110 H Pulse Rhythm Pulse Strength Respiratory Rate 16 Respiratory Effort / Characteristics Respiratory Depth Respiratory Pattern Blood Pressure 123/72 Blood Pressure Mean 83 Blood Pressure Position Pulse Oximetry 92 Oxygen Delivery Method Oxygen Flow Rate 4 Sepsis Recent Fever Within 48 Hours Sepsis New/Unexplained Change in Mental Status Sepsis Action Taken by Nursing Oxygen Flow Rate - Titration Pulse Oximetry Post Tiitration GENERAL: Patient is a healthy-appearing well-nourished female HEAD: Normocephalic atraumatic EYES: Ocular movements intact pupils equal and react to light OROPHARYNX mucous membranes are moist no exudates present no erythema or edema present NECK: Supple no nuchal rigidity CHEST: Good equal expansion LUNGS: Distant breath sounds CARDIAC: Normal S1 and S2 ABDOMEN: Soft nontender no guarding BACK: No CVA tenderness EXTREMITIES: No pain upon palpation normal muscle strength in all groups no clubbing cyanosis, +2 pitting edema b/l mid jacome NEURO: Patient is following commands is answering questions appropriately. Alert and oriented x3 Cranial Nerves 2-12 grossly intact Course Administered Medications Discontinued Medications Albuterol (Ventolin Hfa) 6 puffs INH NOW ONE Stop: 08/21/19 09:22 Last Admin: 08/21/19 09:25 Dose: 6 puffs Documented by: [id number] Furosemide (Lasix) 40 mg IV NOW STA Stop: 08/21/19 10:31 Last Admin: 08/21/19 11:13 Dose: 40 mg Documented by: [id number] Magnesium Sulfate/Dextrose (Magnesium Sulfate / D5w) 1 gm in 100 mls @ 100 mls/hr IV ONE ONE Stop: 08/21/19 10:20 Last Infusion: 08/21/19 10:31 Dose: 0 mls/hr Documented by: [id number] Admin: 08/21/19 09:26 Dose: 100 mls/hr Documented by: [id number] Cefepime HCl (Maxipime) 2,000 mg in 20 mls @ 5 mls/min IV NOW STA Stop: 08/21/19 10:35 Last Admin: 08/21/19 11:14 Dose: 5 mls/min Documented by: [id number] Levofloxacin/Dextrose (Levaquin/D5w) 750 mg in 150 mls @ 100 mls/hr IV NOW STA Stop: 08/21/19 12:01 Last Admin: 04/27/20 11:16 Dose: 100 mls/hr Documented by: [id number] Medical Decision Making Differential Diagnosis Reactive airway disease, pneumonia, pneumothorax, COPD, CHF, infections, cardiac ischemia, pulmonary embolism, musculoskeletal, gastrointestinal, as well as other pathologies. Medical Records Attestation: I reviewed the patient's medical records. Home Medications Current Medication List: was personally reviewed by me Laboratory Data Attestation: I reviewed the patient's lab results. Result diagrams: 08/21/19 09:32 08/21/19 09:32 Lab Results 08/21/19 08/21/19 08/21/19 Range/Units 09:32 09:32 09:32 WBC 5.10 (4.8-10.8) K/uL RBC 3.19 L (4.2-5.4) M/uL Hgb 10.0 L (12.0-16.0) g/dL Hct 31.7 L (37-47) % MCV 99.4 (80-100) fL MCH 31.3 (25-34) pg MCHC 31.5 L (32-36) g/dL RDW Std Deviation 62.5 H (36.4-46.3) fL RDW Coeff of Ilya 17.1 H (11.5-14.5) % Plt Count 194 (130-400) K/uL MPV 8.8 (7.4-10.4) fL Immature Gran % (Auto) 0.4 % Neut % (Auto) 55.3 % Lymph % (Auto) 24.9 % [place] % (Auto) 15.1 % Eos % (Auto) 3.7 % Baso % (Auto) 0.6 % Immature Gran # (Auto) 0.02 (0.00-0.02) K/uL Neut # (Auto) 2.82 (1.4-6.5) K/uL Lymph # (Auto) 1.27 (1.2-3.4) K/uL [place] # (Auto) 0.77 H (0.11-0.59) K/uL Eos # (Auto) 0.19 (0-0.5) K/uL Baso # (Auto) 0.03 (0-0.2) K/uL ESR (0-21) mm/hr PT 11.5 (9.0-12.0) Seconds INR 1.1 (0.9-1.1) APTT 26.7 (21.0-31.0) Seconds PTT Ratio 1.0 Sodium 141 (136-145) mmol/L Potassium 4.4 (3.5-5.1) mmol/L Chloride 106 (98-107) mmol/L Carbon Dioxide 30 (21-32) mmol/L Anion Gap 5.0 (3-11) BUN 26 H (7-18) mg/dl Creatinine 1.25 H (0.6-1.2) mg/dl Est Cr Clr Drug Dosing 25.1 ml/min Est GFR ( Amer) 47.0 Est GFR (Non-Af Amer) 40.6 BUN/Creatinine Ratio 20.4 H (10-20) Glucose 96 (70-99) mg/dl Calcium 8.8 (8.5-10.1) mg/dl Ferritin (8-388) ng/ml Total Bilirubin 0.4 (0.2-1) mg/dl AST 70 H (15-37) U/L ALT 30 (12-78) U/L Alkaline Phosphatase 183 H (45-117) U/L Total Creatine Kinase 24 L (26-192) U/L CK-MB (CK-2) < 1.0 (0.5-3.6) ng/ml CK/CKMB % Calc TNP Troponin I < 0.015 (0-0.045) ng/ml C-Reactive Protein (0-0.29) mg/dl NT-Pro-B Natriuret Pep 5911 H (0-1800) pg/ml Total Protein 6.7 (6.4-8.2) gm/dl Albumin 2.5 L (3.4-5.0) gm/dl Globulin 4.2 H (2.5-4.0) gm/dl Albumin/Globulin Ratio 0.6 L (0.9-2) Lipase 263 (73-393) U/L Influenza Type A (PCR) (Neg) Influenza Type B (PCR) (Neg) 08/21/19 08/21/19 08/21/19 Range/Units 09:32 09:32 11:20 WBC (4.8-10.8) K/uL RBC (4.2-5.4) M/uL Hgb (12.0-16.0) g/dL Hct (37-47) % MCV (80-100) fL MCH (25-34) pg MCHC (32-36) g/dL RDW Std Deviation (36.4-46.3) fL RDW Coeff of Ilya (11.5-14.5) % Plt Count (130-400) K/uL MPV (7.4-10.4) fL Immature Gran % (Auto) % Neut % (Auto) % Lymph % (Auto) % [place] % (Auto) % Eos % (Auto) % Baso % (Auto) % Immature Gran # (Auto) (0.00-0.02) K/uL Neut # (Auto) (1.4-6.5) K/uL Lymph # (Auto) (1.2-3.4) K/uL [place] # (Auto) (0.11-0.59) K/uL Eos # (Auto) (0-0.5) K/uL Baso # (Auto) (0-0.2) K/uL ESR 51 H (0-21) mm/hr PT (9.0-12.0) Seconds INR (0.9-1.1) APTT (21.0-31.0) Seconds PTT Ratio Sodium (136-145) mmol/L Potassium (3.5-5.1) mmol/L Chloride (98-107) mmol/L Carbon Dioxide (21-32) mmol/L Anion Gap (3-11) BUN (7-18) mg/dl Creatinine (0.6-1.2) mg/dl Est Cr Clr Drug Dosing ml/min Est GFR ( Amer) Est GFR (Non-Af Amer) BUN/Creatinine Ratio (10-20) Glucose (70-99) mg/dl Calcium (8.5-10.1) mg/dl Ferritin 178.7 (8-388) ng/ml Total Bilirubin (0.2-1) mg/dl AST (15-37) U/L ALT (12-78) U/L Alkaline Phosphatase (45-117) U/L Total Creatine Kinase (26-192) U/L CK-MB (CK-2) (0.5-3.6) ng/ml CK/CKMB % Calc Troponin I (0-0.045) ng/ml C-Reactive Protein 1.84 H (0-0.29) mg/dl NT-Pro-B Natriuret Pep (0-1800) pg/ml Total Protein (6.4-8.2) gm/dl Albumin (3.4-5.0) gm/dl Globulin (2.5-4.0) gm/dl Albumin/Globulin Ratio (0.9-2) Lipase (73-393) U/L Influenza Type A (PCR) Neg for Influ A (Neg) Influenza Type B (PCR) Neg for Influ B (Neg) Imaging Data Radiologist's Impression: [place], [place] [phone] XRay Report Patient: Julianne ZARAGOZA Date: 08/21/19 MR#: [id number] Acct ID:[id number]: ERMA JOSHUA Date: 1940[facility] Zip: [place] [address] Age: 79Location: ED Sex: F Room/Bed: Att Phy:Diagnosis: SOB [facility] AlbarranaService Date: 08/21/19 Fam Phy:Interpreting Phy: Yomi Norris Admit Phy: Ordering Phy: Matthew rAceo MD cc: ~ XR chest 1V portable HISTORY: 79 years-old Female Chest Pain acute atypical chest pain COMPARISON: Chest radiograph 07/04/2019 TECHNIQUE: Portable AP view of the chest FINDINGS: Cardiac silhouette is enlarged, unchanged. Moderate pleural effusions. Unchanged left subclavian pacer. Calcified plaque of the thoracic aorta. No pneumothorax. Pulmonary vascular congestion with right midlung and right greater than left bibasilar opacities. IMPRESSION: 1. Cardiomegaly with pulmonary vascular congestion. 2. Moderate pleural effusions have mildly increased in size from comparison. 3. Right midlung and right greater than left bibasilar consolidation. ACT 112: Negative or not required by law. The above report was generated using voice recognition software. It may contain grammatical, syntax or spelling errors. Electronically signed by: Haim Norris M.D. 08/21/2019 9:31 AM Dictated: 04/27/20 0930 Transcribed: 08/21/19929 ECG Data Attestation: I personally reviewed and interpreted this ECG as follows: Indication: + SOB/dyspnea Rate (beats per minute): 101 Rhythm: + atrial fibrillation (with RVR) ECG Intervals/blocks: + Normal QT-c (394) ECG [place]: + Normal ECG ST segments: no ST depression and no ST elevation Comparison ECG Date: from (06/22/2019) Change: the following changes noted (QT has shortened, T wave abnormality no longer evident) MDM Narrative This is an 79-year-old female who presents emergency department complaining of shortness of breath. The patient is requiring more oxygen here. Her BNP is elevated her chest x-ray shows a lot of fullness that could present with pneumonia. She was pancultured and started on broad-spectrum antibiotics. She was swabbed for the coronavirus. She was also given 40 of Lasix here in the emergency department. Repeat examination revealed improvement the patient's symptoms. Due to the patient's multiple comorbidities I did discuss the case with the hospitalist service who did agree to admit the patient. The patient was evaluated during the global COVID-19 pandemic, and that diagnosis was suspected/considered upon their initial presentation. Their evaluation, treatment and testing was consistent with current guidelines for patients who present with complaints or symptoms that may be related to COVID- 19. Cardiac monitoring: An order was placed for continuous cardiac monitoring. The monitor shows a rate of 102 with atrial fibrillation rhythm. Impression & Plan CHF exacerbation, Hypoxia Discharge Plan Visit Data *Final* Discharge Date/Time: 08/21/19 12:19 Chief Complaint: Shortness of Breath/Dyspnea ED Provider: Matthew Arceo Discharge Problem: CHF exacerbation, Hypoxia Patient Disposition: Admitted As Inpatient Discharge Instructions Interventions: ED Discharge Assessment Last Done: 08/21/19 12:19 Discharge Problem: CHF exacerbation Qualifiers: Heart failure type: unspecified Qualified Code(s): I50.9 - Heart failure, unspecified
[2019-08-21] MEDS ORDERED: DEXTROSE 50% 50 ML SYRINGE IV PRN (14:05)
[2019-08-21] MEDS ORDERED: GLUCAGON FOR INJ 1 MG VIAL SQ PRN (14:05)
[2019-08-21] MEDS ORDERED: CARBOHYDRATES FOR HYPOGLYCEMIA PO PRN (14:05)
[2019-08-21] MEDS ORDERED: ACETAMINOPHEN 325 MG TAB PO PRN (14:05)
[2019-08-21] MEDS ORDERED: GLUCOSE 10 TABS/TUBE PO PRN (14:05)
[2019-08-21] MEDS ORDERED: POLYETHYLENE (MIRALAX) 17 GM PACK PO PRN (14:05)
[2019-08-21] MEDS ORDERED: GLUCOSE 40% GEL 15 GM TUBE PO PRN (14:05)
[2019-08-21 14:49] LABS: Appearance Urine Turbid (Clear); Bacteria Urine Automated Negative (Negative); Bilirubin Urine Negative (Negative); Blood Urine 1+ (Negative); Color Urine Yellow; Epithelial Cell Urine Auto 20-30 /lpf (0-5); Glucose Urine UA Negative (Negative); Ketones Urine Negative (Negative); Leukocyte Esterase Urine 3+ (Negative); Nitrite Urine Negative (Negative); Specific Gravity Urine 1.009 (1.000-1.030); Urobilinogen Urine Negative (Negative); WBC Urine Automated >30 /hpf (0-5); pH Urine 7.5 (4.5-7.5)
[2019-08-21 15:02] LABS: Protein Urine Negative (Negative); Sulfosalicylic Acid Urine Negative (Negative)
[2019-08-21] MEDS ORDERED: NITROGLYCERIN SL 0.4 MG/TAB TAB SL PRN (15:39)
[2019-08-21] MEDS ORDERED: FLUTICASONE/VILANTEROL 100/25MCG 14 PUFFS/INHALER INH SCH (16:00)
[2019-08-21] MEDS ORDERED: UMECLIDINIUM BROMIDE 62.5MCG/BLISTER 7 PUFFS/INHALER INH SCH (16:00)
--- NOTE | 2019-08-21 16:04 | Cardiology Consultation ---
Date of Consultation August 21, 2019 Assessment & Plan (1) Acute on chronic heart failure with preserved ejection fraction (HFpEF): (2) Atrial fibrillation with RVR: (3) Pleural effusion, bilateral: (4) Hypoxia: (5) Tachy-rex syndrome: (6) Chronic kidney disease (CKD): (7) Adenocarcinoma of lung: Complex 79-year-old female presents with acute decompensated diastolic heart failure with large bilateral pleural effusions and atrial fibrillation with rapid ventricular response. Recommend restarting diltiazem CD 240 mg x 1 now in addition to metoprolol tartrate 100 mg twice daily. Initiate IV diuresis with Lasix 40 mg twice daily. I am also concerned that the enlarging pleural effusions may be malignant in origin given patient's non-small cell (adenocarcinoma) followed by oncology. She has undergone thoracentesis in the past on multiple occasions, however, pleural fluid negative for malignancy as recent as 2018. Follow daily weight, fluid balance, GFR, and electrolytes. Continue renal dose Eliquis, 2.5 mg twice daily. I would not repeat her echocardiogram at this time as I do not believe it would slubber frame changer. Poor prognosis. History of Present Illness Reason for Consultation: Congestive heart failure, pleural effusion. Requesting Physician: Dr. Degroot Attending Physician: Sabiha Degroot, DO History of Present Illness 79-year-old female with history of chronic atrial fibrillation anticoagulated with Eliquis, tachybradycardia syndrome status post single lead pacemaker placement, stage III non-small cell lung carcinoma with metastasis to lymph nodes on chemotherapy, chronic renal insufficiency, chronic anemia, diabetes, and hypertension presented the ER with progressive shortness of breath and weight gain from [facility]. Patient is a very poor historian. She is able to confirm shortness of breath however, denies chest discomfort. No palpitations, orthopnea, or paroxysmal nocturnal dyspnea. Patient mildly confused and oriented to person only. Able to move all extremities. Chart report of fall confirmed by presence of forehead bruising. Patient recently admitted from June 16 through July 06 with multiple issues including acute cholecystitis status post lap cholecystectomy complicated by acute blood loss anemia and postoperative CVA. She was discharged to [facility] at the time of discharge her weight was 91 pounds. Today her weight is 106 pounds per bed scale. X-ray demonstrates pulmonary vascular congestion with large bilateral pleural effusions and bibasilar consolidations. Serum creatinine currently below baseline. Hemoglobin is stable. Telemetry demonstrates atrial fibrillation with rapid ventricular response and heart rate trending upward to 135 bpm. Patient did not receive a.m. medications per discussion with internal medicine. Allergies Allergy/AdvReac Type Severity Reaction Status Date / Time lisinopril Allergy Intermediate RASH Verified 08/21/19 10:37 zolpidem AdvReac Severe hallucinati Verified 08/21/19 10:37 ons Home Medications Home Medications Medication Instructions Recorded Confirmed Type metoprolol tartrate 100 mg PO BID 04/21/18 08/21/19 History pantoprazole 40 mg PO DAILY 04/21/18 08/21/19 History folic acid 1 mg PO DAILY 04/28/18 08/21/19 History nitroglycerin 0.4 mg SUBLINGUAL UD PRN 04/28/18 08/21/19 History Eliquis 2.5 mg PO BID 07/10/18 08/21/19 History aspirin [Aspirin Low Dose] 81 mg PO QAM 07/10/18 08/21/19 History furosemide 40 mg tablet 40 mg PO BID #30 tab 12/20/18 08/21/19 History iron,carbonyl 65 mg-vitamin C 125 1 tab PO DAILY 12/21/18 08/21/19 History mg tablet,delayed release magnesium oxide 400 mg PO DAILY cap 12/21/18 08/21/19 History nystatin 100,000 unit/gram topical 1 appln TOP BID 12/21/18 08/21/19 History powder trazodone 50 mg tablet 25 mg PO HS PRN 12/21/18 08/21/19 History budesonide-formoterol HFA 160 2 puff INHALATION Q12H #10.2 gm 05/11/19 08/21/19 Rx mcg-4.5 mcg/actuation aerosol inhaler docusate sodium 100 mg PO BID 06/16/19 08/21/19 History polyethylene glycol 3350 [Miralax] 17 g PO QAM 06/16/19 08/21/19 History Spiriva Respimat 2 inh INHALATION DAILY 07/05/19 08/21/19 History diltiazem HCl 240 mg PO QAM 08/21/19 08/21/19 History potassium chloride 10 meq PO DAILY 08/21/19 08/21/19 History Patient History Medical History A-fib (Inactive) Ok to continue Eliquis and restart all AVN blockers Acute on chronic renal failure Adenocarcinoma, lung (Chronic) "bronchoscopy / EBUS 11/09/17 bx RUL mass" Anemia CAD (coronary artery disease) Cancer LUNG CANCER S/P RECENT CHEMO (COMPLETED 04/01/18) Chronic obstructive pulmonary disease Diabetes mellitus type 2 with complications Diabetes mellitus, type II (Inactive) Dyslipidemia GERD (gastroesophageal reflux disease) Hiatal hernia Hyperlipidemia Hypertension Myocardial Infarction 1992= MEDICAL MANAGEMENT Osteoarthritis Osteoporosis Pleural effusion on right PNA (pneumonia) (Inactive) Postoperative haemorrhage Recurrent pleural effusion on right Tachy-rex syndrome s/p permanent pacemaker Surgical History History of adenoidectomy History of appendectomy History of arthroscopy RIGHT KNEE History of cardiac cath 1992= NO STENTS History of cataract surgery BILATERAL History of section X4 History of colonoscopy History of hysterectomy JOSE WITH BSO History of lung surgery NAVIGATIONAL BRONCH/EBUS= 11/09/17= GRADE I VIEW, MAC 3, ETT 8.0 AT [facility] History of tonsillectomy History of tooth extraction S/P ERCP S/P laparoscopic cholecystectomy Family History Grandfather (Paternal) Family hx of colon cancer Social History Preferred Language: Ethiopian Communication Ability: Effective Communication Ability Comment: periods of expressive aphasia Visual Impairment: No Limitations Maxillofacial Pathology Required: No Beliefs That Will Affect Care: None marital status: Current Living Situation: Family Current Living Situation Comment: [facility] Other Information That Helps Us Care for You: No Feels Safe at Home: Yes Smoking Status: Former smoker Cigarettes Per Day: 10 ; Second Hand Exposure: No ; Hx Alcohol Use: No Hx Substance Use: No Review of Systems Review of Systems: All systems reviewed & are unremarkable except as noted in HPI & below Physical Exam Physical Exam: Limited examination due to 'PUI status". Constitutional: well developed, + ill appearing, + thin, + frail appearing and cooperative; no acute distress Respiratory: no respiratory distress and no labored breathing (No conversational dyspnea) Neurologic: moves all extremities Speech / Cognition: normal speech Psychiatric: Mood: + anxious mood Insight: + poor insight Judgement: + limited judgement Results & Data ([facility]) Vital Signs (Past 12 Hours) Vital Signs Temp Pulse Pulse Resp BP BP Pulse Ox 08/21/19 15:38 36.4 C L 126 H 20 111/73 96 08/21/19 12:57 36.3 C L 102 H 20 134/78 98 08/21/19 12:00 116 H 16 112/71 97 08/21/19 11:30 127 H 25 H 143/90 H 95 08/21/19 11:02 101 H 16 123/72 92 08/21/19 10:30 93 H 12 116/67 95 08/21/19 10:00 99 H 13 106/60 97 08/21/19 09:32 106 H 21 125/52 L 91 08/21/19 09:15 104 H 22 152/82 H 100 08/21/19 09:09 86 L 08/21/19 09:00 36.5 C 104 H 28 H 131/75 96 (1) Chronic kidney disease (CKD) Chronic kidney disease stage: stage 3 (moderate) Qualified Code(s): N18.3 - Chronic kidney disease, stage 3 (moderate) (2) Adenocarcinoma of lung Laterality: right Qualified Code(s): C34.91 - Malignant neoplasm of unspecified part of right bronchus or lung
[2019-08-21] MEDS ORDERED: dilTIAZem HCL 240 MG CAPCR PO ONE (16:08)
[2019-08-21] MEDS: FUROSEMIDE 40 MG in SYRINGE 0 ML IV SCH (17:10)
[2019-08-21] MEDS: METOPROLOL TARTRATE 100 MG TAB PO SCH ×2 (17:10→21:51)
[2019-08-21] MEDS: UMECLIDINIUM BROMIDE 62.5MCG/BLISTER 7 PUFFS/INHALER INH SCH (17:11)
[2019-08-21] MEDS: POTASSIUM CHLORIDE 10 MEQ TABCR PO SCH (17:12)
[2019-08-21] MEDS: FLUTICASONE/VILANTEROL 100/25MCG 14 PUFFS/INHALER INH SCH (17:13)
[2019-08-21] MEDS: PANTOprazole 40 MG TAB PO SCH (17:14)
[2019-08-21] MEDS: ASPIRIN 81 MG ECTAB PO SCH (17:15)
[2019-08-21] MEDS: INSULIN ASPART 100 UNITS/ML 3 ML PEN SC SCH ×2 (17:34→21:42)
[2019-08-21] MEDS: APIXABAN 2.5 MG TAB PO SCH (21:50)
[2019-08-21] MEDS: DOXYCYCLINE HYCLATE 100 MG CAP PO SCH (21:50)
[2019-08-21] MEDS: DOCUSATE SODIUM 100 MG CAP PO SCH (21:51)
[2019-08-22 07:31] LABS: Hematocrit (blood only) 29.9 % (37-47); Hemoglobin 9.7 g/dL (12.0-16.0); Mean Corpuscular Hemoglobin 31.8 pg (25-34); Mean Corpuscular Hgb Conc 32.4 g/dL (32-36); Mean Platelet Volume 8.8 fL (7.4-10.4); Platelet Count 171 K/uL (130-400); RDW Coefficient of Variation 16.8 % (11.5-14.5); RDW Standard Deviation 59.8 fL (36.4-46.3); Red Blood Count 3.05 M/uL (4.2-5.4); White Blood Count 5.69 K/uL (4.8-10.8)
[2019-08-22] MEDS: METOPROLOL TARTRATE 100 MG TAB PO SCH ×2 (07:48→20:41)
[2019-08-22] MEDS: POLYETHYLENE (MIRALAX) 17 GM PACK PO SCH (07:48)
[2019-08-22] MEDS: FUROSEMIDE 40 MG in SYRINGE 0 ML IV SCH ×2 (07:48→16:30)
[2019-08-22] MEDS: ASPIRIN 81 MG ECTAB PO SCH (07:49)
[2019-08-22] MEDS: FOLIC ACID 1 MG TAB PO SCH (07:49)
[2019-08-22] MEDS: PANTOprazole 40 MG TAB PO SCH (07:50)
[2019-08-22] MEDS: POTASSIUM CHLORIDE 10 MEQ TABCR PO SCH (07:50)
[2019-08-22] MEDS: DOCUSATE SODIUM 100 MG CAP PO SCH ×2 (07:50→20:40)
[2019-08-22] MEDS: DOXYCYCLINE HYCLATE 100 MG CAP PO SCH ×2 (07:51→20:42)
[2019-08-22] MEDS: APIXABAN 2.5 MG TAB PO SCH ×2 (07:51→20:42)
[2019-08-22] MEDS: FLUTICASONE/VILANTEROL 100/25MCG 14 PUFFS/INHALER INH SCH (07:51)
[2019-08-22] MEDS: UMECLIDINIUM BROMIDE 62.5MCG/BLISTER 7 PUFFS/INHALER INH SCH (07:52)
[2019-08-22] MEDS ORDERED: MAGNESIUM OXIDE 400 MG TAB PO SCH (08:00)
[2019-08-22 08:01] LABS: Albumin Level 2.3 gm/dl (3.4-5.0); BUN Creatinine Ratio 18.4 (10-20); Bilirubin Direct 0.2 mg/dl (0-0.2); Creatinine Clr Calc Pharmacy 19.9 ml/min; Est GFR (African American) 36.6; Est GFR (Non-African American) 31.5; Potassium 4.3 mmol/L (3.5-5.1)
[2019-08-22 08:04] LABS: Bilirubin,Total 0.5 mg/dl (0.2-1); Total Protein 6.2 gm/dl (6.4-8.2)
[2019-08-22] MEDS: INSULIN ASPART 100 UNITS/ML 3 ML PEN SC SCH ×4 (08:07→20:57)
[2019-08-22] MEDS ORDERED: NON-FORMULARY MEDICATION (Iron,Carbonyl-Vitamin C [Vitron-C] 1 TAB) PO SCH (09:00)
--- NOTE | 2019-08-22 10:56 | Cardiology Progress Note ---
Date of Service August 22, 2019 Assessment & Plan (1) Acute on chronic heart failure with preserved ejection fraction (HFpEF): (2) Atrial fibrillation with RVR: (3) Pleural effusion, bilateral: (4) Hypoxia: (5) Tachy-rex syndrome: (6) Chronic kidney disease (CKD): (7) Adenocarcinoma of lung: Continue IV furosemide 40 mg twice daily. Follow daily weight, fluid balance, GFR, and electrolytes. As previously noted, I have concerns the pleural effusions may be malignant given patient's non-small cell (adenocarcinoma) followed by oncology. She has undergone thoracentesis in the past on multiple occasions, however, pleural fluid negative for malignancy as recent as 2019. Consider pulmonary consultation. From an atrial fibrillation perspective her heart rate is controlled. Continue metoprolol, diltiazem, and renally dosed Eliquis. SARS-CoV-2 PCR pending at this time. Poor prognosis. Subjective Patient is under investigation for COVID-19. Evaluation performed via electronic medical record and review of telemetry. Fluid balance negative approximately 1300 cc since admission. Creatinine trending upward. Heart rate improved with oral metoprolol and diltiazem CD. Oxygen saturation 98% with 4 L nasal cannula. Results & Data Vital Signs (Past 12 Hours) Vital Signs Temp Pulse Pulse Resp BP Pulse Ox 08/22/19 08:00 80 08/22/19 07:07 36.8 C 74 20 117/70 98 08/22/19 03:24 36.7 C 75 22 118/83 97 08/22/19 00:21 77 08/21/19 23:07 36.8 C 79 16 107/61 93 (1) Chronic kidney disease (CKD) Chronic kidney disease stage: stage 3 (moderate) Qualified Code(s): N18.3 - Chronic kidney disease, stage 3 (moderate) (2) Adenocarcinoma of lung Laterality: right Qualified Code(s): C34.91 - Malignant neoplasm of unspecified part of right bronchus or lung
[2019-08-22] MEDS: cefTRIAXone SODIUM 1,000 MG in DEXTROSE 5% 50 ML IV SCH (12:09)
[2019-08-22] MEDS: MAGNESIUM OXIDE 400 MG TAB PO SCH (12:10)
--- NOTE | 2019-08-22 13:47 | Electrocardiogram Report ---
Test Reason : Blood Pressure : / mmHG Vent. Rate : 080 BPM Atrial Rate : 090 BPM P-R Int : 000 ms QRS Dur : 082 ms QT Int : 398 ms P-R-T Axes : 000 047 147 degrees QTc Int : 459 ms Poor data quality, interpretation may be adversely affected Atrial fibrillation with occasional ventricular-paced complexes Nonspecific ST and T wave abnormality Abnormal ECG When compared with ECG of 21-AUG-2019 09:07, Electronic ventricular pacemaker now present Confirmed by Km Meng ([id number]) on 08/22/2019 1:47:19 PM Referred By: REFERRED SELF Confirmed By:Km Meng
--- NOTE | 2019-08-22 14:15 | Hospitalist Progress Note ---
Date of Service August 22, 2019 Assessment & Plan (1) Acute exacerbation of CHF (congestive heart failure): usually On Lasix 40mg PO BID--> changed to Lasix 40mg IV continue to monitor diuresis Cardiology consulted (2) Pleural effusion, bilateral: will consult Pulmonary Service (3) Atrial fibrillation with RVR: continue metoprolol 100 BID and diltiazem 240mg daily, Eliquis (4) Pneumonia: per admitting service notes: Questionable bilateral infiltrates on imaging, however, patient is not reporting any recent infectious symptoms and nursing staff denies knowledge of any fevers, cough or chills in last few days. -- afebrile, no leukocytosis -- Covid 19 test: pending Blood cultures: pending -- denies cough, sputum -- on Ceftri + Doxy (5) Adenocarcinoma of lung: per admitting Service notes: chronic, RUL nonsmall cell lung cancer with 2.1 cm mass (Dx 11/09/2017). R pleural effusion pleural cytology negative for malignancy on several occasions in 2019. She completed 4 cycles of Alimta and carboplatin between 12/14/2017- 04/01/2018, but was unable to receive further chemotherapy because of contraindications and decline in physical condition. She was also deemed not a surgical candidate. (6) CVA, old, aphasia: has some ? receptive and expressive aphasia on ASA, Eiquis (7) Elevated LFTs: Recently elevated LFTs with acute cholecystitis and s/p lap ning. stable (8) Stage 4 chronic kidney disease: baseline crea 0.9-1.1, now 1.5 monitor (9) COPD (chronic obstructive pulmonary disease): no signs of exacerbation (10) Diabetes mellitus, type II: A1C 5.9 in May 2019. ISS (11) Anemia: stable (12) DVT prophylaxis: Eliquis per home regimen [employer] Admission and Anticipated Discharge Date Admission Date: August 21, 2019 Anticipated date of discharge: 08/24/19 Subjective ff up for CHF exacerbation, possible pneumonia seen resting, sitting up in bed on 4 L O2 via nasal cannula alert, oriented, smiling, not in distress, comfortable states she feels improved compared to yesterday denies shortness of breath, cough, sputum, fever/chills no abdominal pain, nausea/vomiting denies other symptoms Review of Systems Review of Systems: All systems reviewed & are unremarkable except as noted in HPI & below Physical Exam Physical Exam: General- oriented x 2, not in distress, speaks in sentences with no effort or accessory muscle use Head- atraumatic Eyes- PERRL, EOMI, anicteric ENT- oropharynx clear Neck- supple, no JVD, no adenopathy, no thyromegaly; carotids +2/2, no bruits appreciated Lungs- mild rales at the bases no wheezing Heart- normal rate, regular rhythm; no murmur, no gallop, no rub appreciated Abdomen- normal bowel sounds, nondistended, soft, nontender, no masses or hepatosplenomegaly Extremities- grade 1 BL lower leg edema, no calf tenderness; peripheral pulses intact Neuro- alert, oriented x 2; CN 2-12 grossly intact; motor 5/5 bilaterally;sensation 100% on all extremities; no other gross focal neurologic deficits Skin- warm & dry Results & Data Results & Data ([facility]) Vital Signs (Past 12 Hours) Vital Signs Temp Pulse Pulse Resp BP Pulse Ox 08/22/19 11:02 36.7 C 69 22 111/63 92 08/22/19 08:00 80 08/22/19 07:07 36.8 C 74 20 117/70 98 08/22/19 03:24 36.7 C 75 22 118/83 97 Laboratory Results all noted and reviewed (1) Acute exacerbation of CHF (congestive heart failure) Heart failure type: unspecified Qualified Code(s): I50.9 - Heart failure, unspecified (2) Adenocarcinoma of lung Laterality: right Qualified Code(s): C34.91 - Malignant neoplasm of unspecified part of right bronchus or lung
[2019-08-23 07:04] LABS: SARS CoV2 RNA (COVID-19) NOT DETECTED (NOT DETECTED)
[2019-08-23] MEDS: INSULIN ASPART 100 UNITS/ML 3 ML PEN SC SCH ×4 (08:00→20:15)
[2019-08-23] MEDS: FUROSEMIDE 40 MG in SYRINGE 0 ML IV SCH ×2 (08:19→17:04)
[2019-08-23] MEDS: DOXYCYCLINE HYCLATE 100 MG CAP PO SCH (08:19)
[2019-08-23] MEDS: APIXABAN 2.5 MG TAB PO SCH ×2 (08:20→20:21)
[2019-08-23] MEDS: METOPROLOL TARTRATE 100 MG TAB PO SCH ×2 (08:20→20:21)
[2019-08-23] MEDS: UMECLIDINIUM BROMIDE 62.5MCG/BLISTER 7 PUFFS/INHALER INH SCH (08:22)
[2019-08-23] MEDS: ASPIRIN 81 MG ECTAB PO SCH (08:23)
[2019-08-23] MEDS: POTASSIUM CHLORIDE 10 MEQ TABCR PO SCH (08:23)
[2019-08-23] MEDS: PANTOprazole 40 MG TAB PO SCH (08:24)
[2019-08-23] MEDS: FOLIC ACID 1 MG TAB PO SCH (08:24)
[2019-08-23] MEDS: DOCUSATE SODIUM 100 MG CAP PO SCH ×2 (08:24→20:20)
[2019-08-23] MEDS: POLYETHYLENE (MIRALAX) 17 GM PACK PO SCH (08:25)
[2019-08-23] MEDS: FLUTICASONE/VILANTEROL 100/25MCG 14 PUFFS/INHALER INH SCH (08:25)
--- NOTE | 2019-08-23 10:47 | Hospitalist Progress Note ---
Date of Service August 23, 2019 Assessment & Plan (1) Acute exacerbation of CHF (congestive heart failure): acute decompensation of chronic CHF with diastolic heart failure ( HFpEF) cont diuresis with Lasix 40 mg IV BID follow daily wt , lab : daily BMP check to assess renal function Cardiology consulted-appreciate input (2) Pleural effusion, bilateral: due to decompensated CHF also possible component of recurrent pleural effusion due to lung CA ( adeno CA of lungs ) on IV lasix follow chest xray pulmonology consult Questionable bilateral infiltrates on imaging, however, patient is not reporting any recent infectious symptoms and nursing staff denies knowledge of any fevers, cough or chills in last few days. -- afebrile, no leukocytosis -- Covid 19 test: negative Blood cultures: pending -- denies cough, sputum -dc abx (3) Atrial fibrillation with RVR: rate controlled now continue metoprolol 100 BID and diltiazem 240mg daily, on Eliquis (4) Adenocarcinoma of lung: per admitting Service notes: chronic, RUL nonsmall cell lung cancer with 2.1 cm mass (Dx 11/09/2017). R pleural effusion pleural cytology negative for malignancy on several occasions in 2019. She completed 4 cycles of Alimta and carboplatin between 12/14/2017- 04/01/2018, but was unable to receive further chemotherapy because of contraindications and decline in physical condition. She was also deemed not a surgical candidate. (5) CVA, old, aphasia: chronic receptive and expressive aphasia on ASA, Eiquis (6) Elevated LFTs: Recently elevated LFTs with acute cholecystitis and s/p lap ning. stable (7) Stage 4 chronic kidney disease: baseline crea 0.9-1.1, follow daily BMP (8) COPD (chronic obstructive pulmonary disease): no signs of exacerbation (9) Diabetes mellitus, type II: A1C 5.9 in May 2019. ISS (10) Anemia: stable (11) DVT prophylaxis: Eliquis per home regimen DISPOSITION : resident at [facility] PT/OT екатерина requested return back to [facility] when medically stable Admission and Anticipated Discharge Date Admission Date: August 21, 2019 Anticipated date of discharge: 08/24/19 Subjective sitting up on chair says feels fine , no complain of SOB on 2 L 02 via nasal canula with adequate oxygenation no cough , no fever or chills Review of Systems Review of Systems: All systems reviewed & are unremarkable except as noted in HPI & below Constitutional: no fever, no chills and no fatigue Respiratory: no cough, no dyspnea, no dyspnea on exertion, no sputum production and no wheezing Cardiovascular: no chest pain, no dyspnea, no dyspnea on exertion, no orthopnea, no palpitations, no lightheadedness and no syncope Physical Exam Constitutional: WD/WN, vitals as above + thin; no acute distress Eyes: PERRL, conjunctivae normal, anicteric sclerae ENMT: external ear and nose normal, oropharynx normal Neck: trachea midline, no thyromegaly Respiratory: normal respiratory effort; no respiratory distress and no cough Auscultation: no crackles, no rales, no rhonchi and no wheezes Cardiovascular: Rate/Rhythm: regular rate and regular rhythm Vessels: normal peripheral pulses Extremities: no pedal edema Gastrointestinal (Abdomen): Inspection/Auscultation: normal bowel sounds Percussion/Palpation: abdomen soft; abdomen nontender Musculoskeletal: Head/Neck/Chest: normocephalic, head atraumatic and neck supple Extremities: + abnormal strength (generalized weakness ); no cyanosis Skin: no rashes, warm and dry Neurologic: PERRL, EOMI, accommodation nl, no face palsy, no dysarthria Psychiatric: A+Ox3, euthymic affect Results & Data Results & Data ([facility]) Vital Signs (Past 12 Hours) Vital Signs Temp Pulse Resp BP Pulse Ox 08/23/19 07:12 36.8 C 86 16 123/68 98 08/23/19 05:50 36.5 C 84 16 122/67 98 08/22/19 23:09 37.1 C 90 18 122/74 96 (1) Acute exacerbation of CHF (congestive heart failure) Heart failure type: unspecified Qualified Code(s): I50.9 - Heart failure, unspecified (2) Adenocarcinoma of lung Laterality: right Qualified Code(s): C34.91 - Malignant neoplasm of unspecified part of right bronchus or lung
[2019-08-23] MEDS: MAGNESIUM OXIDE 400 MG TAB PO SCH (11:38)
--- NOTE | 2019-08-23 11:42 | Cardiology Progress Note ---
Date of Service August 23, 2019 Assessment & Plan (1) Acute on chronic heart failure with preserved ejection fraction (HFpEF): (2) Atrial fibrillation with RVR: (3) Pleural effusion, bilateral: (4) Hypoxia: (5) Tachy-rex syndrome: (6) Chronic kidney disease (CKD): (7) Adenocarcinoma of lung: Repeat basic metabolic panel today. Continue IV furosemide 40 mg twice daily. Follow daily weight, fluid balance, GFR, and electrolytes. Heart rate is controlled. Continue metoprolol, diltiazem, and renally dosed Eliquis pending review of repeat labs today. Poor prognosis. Subjective Patient seen and examined at the bedside. Poor historian. Denies chest pain or shortness of breath. Fluid balance -1360 cc over the past 24 hours. Weight is trending downward. A.m. labs were not drawn today. Patient denies orthopnea or PND. Lower extremity edema unchanged. Tolerating diet and medication. Her COVID testing is negative. ECG this morning demonstrates atrial fibrillation, low voltage, demand ventricular pacing. Review of Systems Review of Systems: All systems reviewed & are unremarkable except as noted in HPI & below (Somewhat limited as patient is a poor historian and hard of hearing.) Physical Exam Constitutional: well developed, + ill appearing, + thin, + frail appearing and cooperative; no acute distress Respiratory: no respiratory distress and no labored breathing (No conversational dyspnea) Auscultation: + diminished lung sounds (Right base and mid lung field.) and + rales (Scant Rales at the bases bilaterally); no crackles, no rhonchi and no wheezes Cardiovascular: Rate/Rhythm: + irregularly irregular Heart Sounds: normal S1 and normal S2; no murmur and no cardiac rub Vessels: no JVD and no carotid bruit Extremities: + edema (2+ bilateral pretibial edema) Gastrointestinal (Abdomen): Inspection/Auscultation: normal bowel sounds; abdomen not distended Percussion/Palpation: abdomen soft; abdomen nontender, no guarding and abdomen not rigid Musculoskeletal: Extremities: + abnormal strength Gait: + abnormal gait Skin: no rashes, warm and dry Neurologic: moves all extremities; no focal motor deficits Speech / Cognition: normal speech Psychiatric: Mood: + anxious mood Insight: + poor insight Judgement: + limited judgement Results & Data Vital Signs (Past 12 Hours) Vital Signs Temp Pulse Resp BP Pulse Ox 04/29/20 11:12 36.6 C 70 18 114/67 94 08/23/19 07:12 36.8 C 86 16 123/68 98 08/23/19 05:50 36.5 C 84 16 122/67 98 (1) Chronic kidney disease (CKD) Chronic kidney disease stage: stage 3 (moderate) Qualified Code(s): N18.3 - Chronic kidney disease, stage 3 (moderate) (2) Adenocarcinoma of lung Laterality: right Qualified Code(s): C34.91 - Malignant neoplasm of unspecified part of right bronchus or lung
[2019-08-23] MEDS: cefTRIAXone SODIUM 1,000 MG in DEXTROSE 5% 50 ML IV SCH (11:50)
[2019-08-23 12:24] LABS: BUN Creatinine Ratio 18.2 (10-20); Calcium 8.6 mg/dl (8.5-10.1); Creatinine Clr Calc Pharmacy 22.3 ml/min; Est GFR (African American) 42.1; Est GFR (Non-African American) 36.3; Potassium 3.8 mmol/L (3.5-5.1)
--- NOTE | 2019-08-23 12:55 | Pulmonary Consultation ---
Date of Consultation August 23, 2019 Assessment & Plan (1) Acute and chronic respiratory failure ([id number]): --Acute on chronic hypoxic respiratory failure Secondary to diastolic CHF exacerbation Continue with diuresis as tolerated O2 supplementation to keep oxygen saturation between 90 to 92% BiPAP 10/6 PRN shortness of breath --Bilateral pleural effusion Likely secondary to underlying HFpEF and CKD Patient had pleural effusion dating back to 06/2018 Patient had multiple thoracentesis done in the past, 4 times in the last year l ast one being in March 2019 All of which were transudative and negative for malignancy --Adenocarcinoma of the lung Right upper lobe diagnosed 11/09/2017, status post chemotherapy which was not able to be completed because of deteriorating clinical status of the patient. Patient also had an EBUS done in April 2018 to look at mediastinal adenopathy which was negative for any metastatic disease --SHIRA Patient had moderate SHIRA but was not compliant with CPAP so the machine was taken away Recommend using BiPAP nightly while in the hospital if patient agrees Unsure if the patient has COPD. PFT done April 2018 shows nonspecific pattern with severe decrease in DLCO. Patient follows up with Dr. ruano as an outpatient. Continue with inhaled therapy for the time being. Plan: Patient has chronic moderate bilateral pleural effusion with multiple thoracentesis done in the past, all of which were negative for malignancy. This makes the possibility of malignancy very low. Clinically it has been found that if no malignancy(on cytology) is found on 3 consequent thoracentesis, there is no change in sensitivity or specificity in doing any more thoracentesis. VATS would be the next step if we are thinking about malignancy. Even if it is malignancy related pleural effusion, it is not going to change her management. Pleurx catheter would not be indicated in a patient with bilateral pleural effusion and diastolic CHF. Coming to our patient who is 79-year-old frail lady who was not even able to tolerate chemotherapy for her lung cancer has underlying diastolic CHF and CKD which is most likely the cause of her pleural effusion and multiple other comorbidities. I would not be aggressive with pursuing thoracentesis on this patient. She has CKD and she is on apixaban for A. fib, this increases her risk of complications. Patient is clinically feeling better with diuresis. I would continue with diuresis repeat chest x-ray in couple of days. Breathing masters she states she is already doing better. Would recommend palliative care consult to define goals of care for the patient. Pulmonary will follow the patient peripherally. Please note the above document was generated using voice recognition software. It may contain grammatical, syntax or spelling errors. (2) Acute on chronic heart failure with preserved ejection fraction (HFpEF): (3) Pleural effusion, bilateral: (4) Atrial fibrillation with RVR: (5) Adenocarcinoma of lung: Laterality: right Qualified Code(s): C34.91 - Malignant neoplasm of unspecified part of right bronchus or lung History of Present Illness Attending Physician: Naomi Vann MD History of Present Illness 79-year-old pleasant female with past medical history of HFpEF, CKD, adenocarcinoma of the lung diagnosed 11/09/2017 status post chemotherapy unable to complete because of her underlying frail physical condition, Margoth fonseca on apixa ban was admitted to the hospital because of worsening shortness of breath and hypoxia secondary to diastolic CHF exacerbation. Pulmonary was consulted today for her underlying bilateral pleural effusions. At the time of examination today patient was saturating 98% on 4 L nasal cannula at rest in no acute distress. Patient denies any chest pain, said the shortness of breath is improved. No dysuria, no diarrhea. Denies any headache, no blurry vision, no cough. Denies any abdominal pain Patient is a poor historian. History was obtained from previous chart. Social history: Non-smoker, no illicit drug use, no alcohol use Patient denies any personal or family history of asthma. Allergies Allergy/AdvReac Type Severity Reaction Status Date / Time lisinopril Allergy Intermediate RASH Verified 08/21/19 10:37 zolpidem AdvReac Severe hallucinati Verified 08/21/19 10:37 ons Home Medications Home Medications Medication Instructions Recorded Confirmed Type metoprolol tartrate 100 mg PO BID 04/21/18 08/21/19 History pantoprazole 40 mg PO DAILY 04/21/18 08/21/19 History folic acid 1 mg PO DAILY 04/28/18 08/21/19 History nitroglycerin 0.4 mg SUBLINGUAL UD PRN 04/28/18 08/21/19 History Eliquis 2.5 mg PO BID 07/10/18 08/21/19 History aspirin [Aspirin Low Dose] 81 mg PO QAM 07/10/18 08/21/19 History furosemide 40 mg tablet 40 mg PO BID #30 tab 12/20/18 08/21/19 History iron,carbonyl 65 mg-vitamin C 125 1 tab PO DAILY 12/21/18 08/21/19 History mg tablet,delayed release magnesium oxide 400 mg PO DAILY cap 12/21/18 08/21/19 History nystatin 100,000 unit/gram topical 1 appln TOP BID 12/21/18 08/21/19 History powder trazodone 50 mg tablet 25 mg PO HS PRN 12/21/18 08/21/19 History budesonide-formoterol HFA 160 2 puff INHALATION Q12H #10.2 gm 05/11/19 08/21/19 Rx mcg-4.5 mcg/actuation aerosol inhaler docusate sodium 100 mg PO BID 06/16/19 08/21/19 History polyethylene glycol 3350 [Miralax] 17 g PO QAM 06/16/19 08/21/19 History Spiriva Respimat 2 inh INHALATION DAILY 07/05/19 08/21/19 History diltiazem HCl 240 mg PO QAM 08/21/19 08/21/19 History potassium chloride 10 meq PO DAILY 08/21/19 08/21/19 History Patient History Medical History A-fib (Inactive) Ok to continue Eliquis and restart all AVN blockers Acute on chronic renal failure Adenocarcinoma, lung (Chronic) "bronchoscopy / EBUS 11/09/17 bx RUL mass" Anemia CAD (coronary artery disease) Cancer LUNG CANCER S/P RECENT CHEMO (COMPLETED 04/01/18) Chronic obstructive pulmonary disease Diabetes mellitus type 2 with complications Diabetes mellitus, type II (Inactive) Dyslipidemia GERD (gastroesophageal reflux disease) Hiatal hernia Hyperlipidemia Hypertension Myocardial Infarction 1992= MEDICAL [employer]NAGEMENT Osteoarthritis Osteoporosis Pleural effusion on right PNA (pneumonia) (Inactive) Postoperative haemorrhage Recurrent pleural effusion on right Tachy-rex syndrome s/p permanent pacemaker Surgical History History of adenoidectomy History of appendectomy History of arthroscopy RIGHT KNEE History of cardiac cath 1992= NO STENTS History of cataract surgery BILATERAL History of section X4 History of colonoscopy History of hysterectomy JOSE WITH BSO History of lung surgery NAVIGATIONAL BRONCH/EBUS= 11/09/17= GRADE I VIEW, MAC 3, ETT 8.0 AT [facility] History of tonsillectomy History of tooth extraction S/P ERCP S/P laparoscopic cholecystectomy Family History Grandfather (Paternal) Family hx of colon cancer Social History Preferred Language: Hungarian Communication Ability: Impaired Communication Ability Comment: periods of expressive aphasia Visual Impairment: No Limitations And Rescue [employer] Required: No Beliefs That Will Affect Care: None marital status: Unknown Current Living Situation: Family Current Living Situation Comment: [facility] Other Information That Helps Us Care for You: No Feels Safe at Home: Yes Smoking Status: Former smoker Cigarettes Per Day: 10 ; Second Hand Exposure: No ; Hx Alcohol Use: No Hx Substance Use: No Review of Systems Review of Systems: All systems reviewed & are unremarkable except as noted in HPI & below Physical Exam Physical Exam: Constitutional: No acute distress, frail-appearing HEENT: EOMI, PERRLA, arcus senilis bilaterally, bruising appreciated on the right forehead and right side of face Respiratory system: Decreased air entry bilaterally, positive crackles bilateral lower lobes, no wheeze, no rhonchi CVS: S1-S2 positive, no murmurs or gallops, distant heart sounds Abdomen: Soft, nontender, nondistended, positive bowel sounds x4 Extremities: +2 pulses bilaterally radialis/ dorsalis pedis, no cyanosis, +3 pitting edema bilateral lower extremity Neuro: Awake alert oriented x3 Psych: Normal mood and affect G/U: No [place] Skin: no rashes, warm and dry Lymphatic: no cervical or axillary lymphadenopathy Results & Data Results & Data ([facility]) Vital Signs (Past 12 Hours) Vital Signs Temp Pulse Resp BP Pulse Ox 08/23/19 11:12 36.6 C 70 18 114/67 94 08/23/19 07:12 36.8 C 86 16 123/68 98 08/23/19 05:50 36.5 C 84 16 122/67 98 08/22/19 07:13 08/23/19 11:47 Chest x-ray port 11/13/2019 personally reviewed: Portable film, minimal rotation to the right, bilateral costophrenic and cardiophrenic angles are blunted, trach ea is deviated to the right, bilateral pleural effusion, increased vascular markings. PG Care Time/CCT Total # of Minutes Spent Total Time Spent with Patient: Total time spent is greater than 50% in c oordination of care (as documented) at patient's floor/unit and/or counseling patient: Coding Level of Care Code 71821 Initial Inpt Care Lvl 3 Diagnoses Acute and chronic respiratory failure ([id number]) J96.20 Acute on chronic heart failure with preserved ejection fraction (HFpEF) I50.33 Pleural effusion, bilateral J90 Atrial fibrillation with RVR I48.91 Adenocarcinoma of lung C34.91 Laterality: right
--- NOTE | 2019-08-23 13:52 | Electrocardiogram Report ---
Test Reason : Blood Pressure : / mmHG Vent. Rate : 077 BPM Atrial Rate : 098 BPM P-R Int : 000 ms QRS Dur : 080 ms QT Int : 374 ms P-R-T Axes : 000 -32 -17 degrees QTc Int : 423 ms Atrial fibrillation with occasional ventricular-paced complexes Left axis deviation Low voltage QRS Poor R wave progression, consider anterior MN vs. lead placement vs. LVH Abnormal ECG When compared with ECG of 22-AUG-2019 07:46, Vent. rate has decreased BY 3 BPM Confirmed by Km Meng ([id number]) on 08/23/2019 1:51:54 PM Referred By: REFERRED SELF Confirmed By:Km Meng
[2019-08-24 06:59] LABS: Calcium 8.7 mg/dl (8.5-10.1); Creatinine Clr Calc Pharmacy 17.9 ml/min; Est GFR (African American) 32.2; Est GFR (Non-African American) 27.8; Potassium 3.6 mmol/L (3.5-5.1)
[2019-08-24] MEDS: METOPROLOL TARTRATE 100 MG TAB PO SCH ×2 (08:37→20:12)
[2019-08-24] MEDS: DOCUSATE SODIUM 100 MG CAP PO SCH ×2 (08:37→20:12)
[2019-08-24] MEDS: ASPIRIN 81 MG ECTAB PO SCH (08:37)
[2019-08-24] MEDS: APIXABAN 2.5 MG TAB PO SCH ×2 (08:37→20:11)
[2019-08-24] MEDS: FOLIC ACID 1 MG TAB PO SCH (08:37)
[2019-08-24] MEDS: PANTOprazole 40 MG TAB PO SCH (08:37)
[2019-08-24] MEDS: FUROSEMIDE 40 MG in SYRINGE 0 ML IV SCH (08:38)
[2019-08-24] MEDS: FLUTICASONE/VILANTEROL 100/25MCG 14 PUFFS/INHALER INH SCH (08:38)
[2019-08-24] MEDS: POTASSIUM CHLORIDE 10 MEQ TABCR PO SCH (08:38)
[2019-08-24] MEDS: INSULIN ASPART 100 UNITS/ML 3 ML PEN SC SCH ×2 (08:38→11:49)
[2019-08-24] MEDS: UMECLIDINIUM BROMIDE 62.5MCG/BLISTER 7 PUFFS/INHALER INH SCH (08:39)
[2019-08-24] MEDS: POLYETHYLENE (MIRALAX) 17 GM PACK PO SCH (08:51)
--- NOTE | 2019-08-24 11:38 | Pulmonology Progress Note ---
Date of Service August 24, 2019 Assessment & Plan (1) Acute and chronic respiratory failure ([id number]): --Acute on chronic hypoxic respiratory failure Secondary to diastolic CHF exacerbation Continue with diuresis as tolerated O2 supplementation to keep oxygen saturation between 90 to 92% BiPAP 10/6 PRN shortness of breath --Bilateral pleural effusion Likely secondary to underlying HFpEF and CKD Patient has pleural effusion dating back to 06/2018 Patient had multiple thoracentesis done in the past, 4 times in the last year last one being in March 2019 All of which were transudative and negative for malignancy, etiology likely being CKD and HFpEF. --Adenocarcinoma of the lung Right upper lobe diagnosed 11/09/2017, status post chemotherapy which was not able to be completed because of deteriorating clinical status of the patient. Patient also had an EBUS done in April 2018 to look at mediastinal adenopathy which was negative for any metastatic disease --SHIRA As per the previous records patient had moderate SHIRA but was not compliant with CPAP so the machine was taken away Recommend using BiPAP nightly while in the hospital if patient is agreeable Unsure if the patient has COPD. PFT done April 2018 shows nonspecific pattern with severe decrease in DLCO. Patient follows up with Dr. ruano as an outpatient. Continue with inhaled therapy for the time being. Plan: Patient is -1.7 L since coming to the hospital. Clinically she feels better. At the time of examination patient was saturating 97% on 2 L nasal cannula with heart rate of 91 at rest not in any acute distress. Creatinine is trending up a little bit likely secondary to diuresis. Repeat chest x-ray tomorrow to see if there is improvement in pleural effusion and vascular congestion. I would not be aggressive with pursuing thoracentesis on on a patient who has CKD, on apixaban for A. fib which increases her risk of complications. Recommend palliative care consult to define goals of care for the patient. Pulmonary will follow the patient peripherally. Please note the above document was generated using voice recognition software. It may contain grammatical, syntax or spelling errors. (2) Acute on chronic heart failure with preserved ejection fraction (HFpEF): (3) Pleural effusion, bilateral: (4) Atrial fibrillation with RVR: (5) Adenocarcinoma of lung: Laterality: right Qualified Code(s): C34.91 - Malignant neoplasm of unspecified part of right bronchus or lung Admission and Anticipated Discharge Date Admission Date: August 21, 2019 Anticipated date of discharge: 08/24/19 Subjective Patient seen and examined at bedside. No acute distress, no adverse events overnight. Patient said that she is feeling better. Shortness of breath is improved. Denies any chest pain, no dizziness, no palpitations. Good appetite. Urinating well. Review of Systems Review of Systems: All systems reviewed & are unremarkable except as noted in HPI & below Physical Exam Physical Exam: Constitutional: No acute distress, frail-appearing HEENT: EOMI, PERRLA, arcus senilis bilaterally, bruising appreciated on the right forehead and right side of face Respiratory system: Decreased air entry bilaterally, positive crackles bilateral lower lobes, no wheeze, no rhonchi CVS: S1-S2 positive, no murmurs or gallops, distant heart sounds Abdomen: Soft, nontender, nondistended, positive bowel sounds x4 Extremities: +2 pulses bilaterally radialis/ dorsalis pedis, no cyanosis, +2 pitting edema bilateral lower extremity Neuro: Awake alert oriented x3 Psych: Normal mood and affect G/U: No Mercer Skin: no rashes, warm and dry Lymphatic: no cervical or axillary lymphadenopathy Results & Data Results & Data ([facility]) Vital Signs (Past 12 Hours) Vital Signs Temp Pulse Pulse Resp BP Pulse Ox 08/24/19 08:00 90 08/24/19 07:37 36.8 C 83 17 113/61 98 08/24/19 03:58 36.4 C L 97 H 20 120/71 93 08/23/19 23:50 37.0 C 92 H 17 121/69 97 08/23/19 23:32 90 08/22/19 07:13 08/24/19 06:00 PG Care Time/CCT Total # of Minutes Spent Total Time Spent with Patient: Total time spent is greater than 50% in coordination of care (as documented) at patient's floor/unit and/or counseling patient: Coding Level of Care Code 43776 Subseq Hosp Care Lvl 3 Diagnoses Acute and chronic respiratory failure ([id number]-oqbsimt) J96.20 Acute on chronic heart failure with preserved ejection fraction (HFpEF) I50.33 Pleural effusion, bilateral J90 Atrial fibrillation with RVR I48.91 Adenocarcinoma of lung C34.91 Laterality: right
[2019-08-24] MEDS: MAGNESIUM OXIDE 400 MG TAB PO SCH (11:49)
--- NOTE | 2019-08-24 12:43 | Cardiology Progress Note ---
Date of Service August 24, 2019 Assessment & Plan (1) Acute on chronic heart failure with preserved ejection fraction (HFpEF): (2) Acute on chronic renal failure: (3) Pleural effusion, bilateral: (4) Hypoxia: (5) Chronic atrial fibrillation: (6) Tachy-rex syndrome: (7) Adenocarcinoma of lung: Patient borderline hypotensive and creatinine trending upward. Recommend hold furosemide today. Repeat basic metabolic panel in a.m. Follow daily weight, fluid balance, GFR, and electrolytes. Repeat x-ray in a.m. for reevaluation of pleural effusion. Physical exam suggests at least moderate right-sided pleural effusion. Heart rate is controlled. Continue metoprolol, diltiazem, and renally dosed Eliquis. Poor prognosis. Subjective Patient seen and examined the bedside. Creatinine trending upward. Borderline hypotensive this morning. Weight is down 4 kg since admission. Patient is a poor historian. Denies orthopnea or PND. Lower extremity edema improved. Denies chest pain or unusual shortness of breath. Tolerating diet medications. Offers no new concerns/complaints this time. Review of Systems Review of Systems: All systems reviewed & are unremarkable except as noted in HPI & below (Limited due to cognitive status and hearing impairment.) Physical Exam Constitutional: well developed, + ill appearing, + thin, + frail appearing and cooperative; no acute distress Respiratory: no respiratory distress and no labored breathing (No conversational dyspnea) Auscultation: + diminished lung sounds (Right base and mid lung field.) and + rales (Scant Rales at the bases bilaterally); no crackles, no rhonchi and no wheezes Cardiovascular: Rate/Rhythm: + irregularly irregular Heart Sounds: normal S1 and normal S2; no murmur and no cardiac rub Vessels: no JVD and no carotid bruit Extremities: + edema (1+ bilateral pretibial edema) Gastrointestinal (Abdomen): Inspection/Auscultation: normal bowel sounds; abdomen not distended Percussion/Palpation: abdomen soft; abdomen nontender, no guarding and abdomen not rigid Musculoskeletal: Extremities: + abnormal strength Gait: + abnormal gait Skin: no rashes, warm and dry Neurologic: moves all extremities; no focal motor deficits Speech / Co gnition: normal speech Psychiatric: Mood: + anxious mood Insight: + poor insight Judgement: + limited judgement Results & Data Vital Signs (Past 12 Hours) Vital Signs Temp Pulse Pulse Resp BP Pulse Ox 08/24/19 12:08 36.3 C L 76 20 94/52 L 96 08/24/19 12:00 90 08/24/19 08:00 90 08/24/19 07:37 36.8 C 83 17 113/61 98 08/24/19 03:58 36.4 C L 97 H 20 120/71 93 (1) Adenocarcinoma of lung Laterality: right Qualified Code(s): C34.91 - Malignant neoplasm of unspecified part of right bronchus or lung (2) Acute on chronic renal failure Acute renal failure type: unspecified Chronic kidney disease stage: stage 3 (moderate) Qualified Code(s): N17.9 - Acute kidney failure, unspecified; N18.3 - Chronic kidney disease, stage 3 (moderate)
--- NOTE | 2019-08-24 13:46 | Hospitalist Progress Note ---
Date of Service August 24, 2019 Assessment & Plan (1) Acute exacerbation of CHF (congestive heart failure): acute hypoxemic respiratory failure due to : acute decompensation of chronic CHF with diastolic heart failure ( HFpEF) respiratory status improved to baseline after aggressive diuresis with IV Lasix pt is on negative fluid balance of 1.7 L breathing much better , no orthopnea , no ARSHAD appreciate input from Cardiology Lasix on hold for borderline hypotension , worsening of renal function Acute renal failure Cr elevated 1.7 ACUTE RENAL FAILURE WITH CKD STAGE 4 developed acute renal failure with cr 1.7 due to diuresis hold Lasix pt does not appear to be volume overloaded baseline crea 0.9-1.1, follow daily BMP (2) Pleural effusion, bilateral: due to decompensated CHF also possible component of recurrent pleural effusion due to lung CA ( adeno CA of lungs ) appreciate input from Pulmonology chronic bilateral plural effusion from chest imaging 06/2018 had multiple thoracentesis -showed no malignant cells in pleural fluid no indication for repeat thoracenthesis this admission cont diuresis as renal function improves over all prognosis poor given advanced age , multiple co morbidities palliative care consult to address goal of care recommended by Pulmonology will discuss with pt and her family prior to request consult Questionable bilateral infiltrates on imaging, however, patient is not reporting any recent infectious symptoms and nursing staff denies knowledge of any fevers, cough or chills in last few days. -- afebrile, no leukocytosis -- Covid 19 test: negative -- denies cough, sputum no indication for antibiotic treatment (3) Atrial fibrillation with RVR: rate controlled now continue metoprolol 100 BID and diltiazem 240mg daily, on Eliquis (4) Adenocarcinoma of lung: per admitting Service notes: chronic, RUL nonsmall cell lung cancer with 2.1 cm mass (Dx 11/09/2017). R pleural effusion pleural cytology negative for malignancy on several occasions in 2019. She completed 4 cycles of Alimta and carboplatin between 12/14/2017- 04/01/2018, but was unable to receive further chemotherapy because of contraindications and decline in physical condition. She was also deemed not a surgical candidate. had multiple thoracenthesis for chronic bilat pleural effusion /negative for malignant cells in pleural fluid no indication to repeat procedure this admission overall prognosis remains very poor (5) CVA, old, aphasia: chronic receptive and expressive aphasia on ASA, Eiquis (6) Stage 4 chronic kidney disease: (7) COPD (chronic obstructive pulmonary disease): no signs of exacerbation (8) Diabetes mellitus, type II: A1C 5.9 in May 2019. avg bsg 100-120 will liberalize diet D/c insulin sliding scale (9) Anemia: due to chronic kidney disease Hb stable at basaline CODE STATUS : full code need to have discussion regarding goals of care and code status -given over all poor prognosis DVT PROPHYLAXIS : On Eliquis DISPOSITION resident at [facility] PT /OT eval prior to discharge (10) DVT prophylaxis: Eliquis per home regimen DISPOSITION : resident at [facility] PT/OT eval [facility] Admission and Anticipated Discharge Date Admission Date: August 21, 2019 Anticipated date of discharge: 08/24/19 Subjective denies of any discomfort sitting on chair no cough or SOB , no fever or chills denies of any chest pain or chest heaviness Review of Systems Review of Systems: All systems reviewed & are unremarkable except as noted in HPI & below Physical Exam Constitutional: WD/WN, vitals as above + thin; no acute distress Eyes: PERRL, conjunctivae normal, anicteric sclerae ENMT: external ear and nose normal, oropharynx normal Neck: trachea midline, no thyromegaly Respiratory: normal respiratory effort; no respiratory distress and no cough Auscultation: no crackles, no rales, no rhonchi and no wheezes Cardiovascular: Rate/Rhythm: regular rate and regular rhythm Vessels: normal peripheral pulses Extremities: no pedal edema Gastrointestinal (Abdomen): Inspection/Auscultation: normal bowel sounds Percussion/Palpation: abdomen soft; abdomen nontender Musculoskeletal: Head/Neck/Chest: normocephalic, head atraumatic and neck supple Extremities: + abnormal strength (generalized weakness ); no cyanosis Skin: no rashes, warm and dry Neurologic: PERRL, EOMI, accommodation nl, no face palsy, no dysarthria Psychiatric: A+Ox3, euthymic affect Results & Data Results & Data ([facility]) Vital Signs (Past 12 Hours) Vital Signs Temp Pulse Pulse Resp BP Pulse Ox 08/24/19 12:08 36.3 C L 76 20 94/52 L 96 08/24/19 12:00 90 08/24/19 08:00 90 08/24/19 07:37 36.8 C 83 17 113/61 98 08/24/19 03:58 36.4 C L 97 H 20 120/71 93 (1) Acute exacerbation of CHF (congestive heart failure) Heart failure type: unspecified Qualified Code(s): I50.9 - Heart failure, unspecified (2) Adenocarcinoma of lung Laterality: right Qualified Code(s): C34.91 - Malignant neoplasm of unspecified part of right bronchus or lung
[2019-08-25 07:03] LABS: BUN Creatinine Ratio 21.2 (10-20); Calcium 8.8 mg/dl (8.5-10.1); Creatinine Clr Calc Pharmacy 20.1 ml/min; Est GFR (African American) 37.1; Potassium 3.6 mmol/L (3.5-5.1)
[2019-08-25] MEDS: METOPROLOL TARTRATE 100 MG TAB PO SCH ×2 (07:46→21:55)
[2019-08-25] MEDS: FOLIC ACID 1 MG TAB PO SCH (07:47)
[2019-08-25] MEDS: DOCUSATE SODIUM 100 MG CAP PO SCH ×2 (07:47→21:55)
[2019-08-25] MEDS: APIXABAN 2.5 MG TAB PO SCH ×2 (07:47→21:55)
[2019-08-25] MEDS: PANTOprazole 40 MG TAB PO SCH (07:48)
[2019-08-25] MEDS: POTASSIUM CHLORIDE 10 MEQ TABCR PO SCH (07:48)
[2019-08-25] MEDS: ASPIRIN 81 MG ECTAB PO SCH (07:48)
[2019-08-25] MEDS: MAGNESIUM OXIDE 400 MG TAB PO SCH (07:49)
[2019-08-25] MEDS: UMECLIDINIUM BROMIDE 62.5MCG/BLISTER 7 PUFFS/INHALER INH SCH (07:50)
[2019-08-25] MEDS: POLYETHYLENE (MIRALAX) 17 GM PACK PO SCH (07:50)
[2019-08-25] MEDS: FLUTICASONE/VILANTEROL 100/25MCG 14 PUFFS/INHALER INH SCH (07:51)
--- NOTE | 2019-08-25 08:37 | Hospitalist Progress Note ---
Date of Service August 25, 2019 Assessment & Plan (1) Acute exacerbation of CHF (congestive heart failure): worsening of SOB , orthopnea noted today -noted to have crackles at lung base Cxray shows persisted pleural effusion lasix was kept on hold yesterday due to Julio ordered to resume today with ist dose now cont to monitor vol staus presented with acute hypoxemic respiratory failure due to : acute decompensation of chronic CHF with diastolic heart failure ( HFpEF) treated with IV Lasix 40 mg BID was kept on hold for 1 days for JULIO noted pt developes s/s of decompensated CHF with worsening of SOB Lasix resumed over all prognosis remains poor ACUTE RENAL FAILURE WITH CKD STAGE 4 renal function improved Cr 1.5 today after holding lasix for 24 hrs lasix resumed as pt havintg s/s of vol overload /pulm congestion (2) Pleural effusion, bilateral: possible combination of decompensated CHF vs recurrent pleural effusion due to lung CA ( adeno CA of lungs ) appreciate input from Pulmonology chronic bilateral plural effusion noted from chest imaging 06/2018 had multiple thoracentesis -showed no malignant cells in pleural fluid no indication for repeat thoracenthesis this admission cont diuresis as renal function improves over all prognosis poor given advanced age , multiple co morbidities palliative care consult to address goal of care recommended by Pulmonology will discuss with pt and her family prior to request consult Questionable bilateral infiltrates on imaging, however, patient is not reporting any recent infectious symptoms and nursing staff denies knowledge of any fevers, cough or chills in last few days. -- afebrile, no leukocytosis -- Covid 19 test: negative no indication for antibiotic treatment (3) Atrial fibrillation with RVR: rate controlled now continue metoprolol 100 BID and diltiazem 240mg daily, on Eliquis (4) Adenocarcinoma of lung: per admitting Service notes: chronic, RUL nonsmall cell lung cancer with 2.1 cm mass (Dx 11/09/2017). R pleural effusion pleural cytology negative for malignancy on several occasions in 2019. She completed 4 cycles of Alimta and carboplatin between 12/14/2017- 04/01/2018, but was unable to receive further chemotherapy because of contraindications and decline in physical condition. She was also deemed not a surgical candidate. had multiple thoracenthesis for chronic bilat pleural effusion /negative for malignant cells in pleural fluid no indication to repeat procedure this admission overall prognosis remains very poor (5) CVA, old, aphasia: chronic receptive and expressive aphasia on ASA, Eiquis (6) Stage 4 chronic kidney disease: (7) COPD (chronic obstructive pulmonary disease): no signs of exacerbation (8) Diabetes mellitus, type II: A1C 5.9 in May 2019. avg bsg 100-120 will liberalize diet D/c insulin sliding scale (9) Anemia: due to chronic kidney disease Hb stable at basaline CODE STATUS : full code need to have discussion regarding goals of care and code status -given over all poor prognosis DVT PROPHYLAXIS : On Eliquis DISPOSITION resident at [facility] PT /OT eval prior to discharge (10) DVT prophylaxis: Eliquis per home regimen DISPOSITION : resident at [facility] PT/OT eval requested return back to [facility] when medically stable Admission and Anticipated Discharge Date Admission Date: August 21, 2019 Anticipated date of discharge: 08/24/19 Subjective pt appears to be more short of breath , orthopnic today sitting up on bed , says she had an uneventful night has minimum non productive cough no fever or chills /no complain of chest pain or chest heaviness renal functions improved Review of Systems Review of Systems: All systems reviewed & are unremarkable except as noted in HPI & below Respiratory: + cough and + dyspnea; no wheezing Cardiovascular: + dyspnea, + dyspnea at rest and + orthopnea; no chest pain and no edema Physical Exam Constitutional: WD/WN, vitals as above + thin; no acute distress Eyes: PERRL, conjunctivae normal, anicteric sclerae ENMT: external ear and nose normal, oropharynx normal Neck: trachea midline, no thyromegaly Respiratory: + uses accessory muscles; no cough Auscultation: + crackles (bibasilar crackles rt > left ) and + rales; no rhonchi and no wheezes Cardiovascular: Rate/Rhythm: regular rate and regular rhythm Vessels: normal peripheral pulses Extremities: no pedal edema Gastrointestinal (Abdomen): Inspection/Auscultation: normal bowel sounds Percussion/Palpation: abdomen soft; abdomen nontender Musculoskeletal: Head/Neck/Chest: normocephalic, head atraumatic and neck supple Extremities: + abnormal strength (generalized weakness ); no cyanosis Skin: no rashes, warm and dry Neurologic: PERRL, EOMI, accommodation nl, no face palsy, no dysarthria Psychiatric: A+Ox3, euthymic affect Results & Data Results & Data ([facility]) Vital Signs (Past 12 Hours) Vital Signs Temp Pulse Resp BP Pulse Ox 08/25/19 07:00 36.6 C 77 18 107/66 100 08/25/19 03:36 36.8 C 84 17 110/67 97 08/24/19 23:18 36.6 C 78 19 108/52 L 99 (1) Acute exacerbation of CHF (congestive heart failure) Heart failure type: unspecified Qualified Code(s): I50.9 - Heart failure, unspecified (2) Adenocarcinoma of lung Laterality: right Qualified Code(s): C34.91 - Malignant neoplasm of unspecified part of right bronchus or lung
--- NOTE | 2019-08-25 08:40 | XRay Report ---
XR chest 1V portable HISTORY: 79 years-old Female CHF, pleural effusions follow-up study in a patient with shortness of b reath and congestive heart failure COMPARISON: Chest radiograph 08/21/2019 TECHNIQUE: Portable AP view of the chest FINDINGS: Cardiac silhouette is enlarged, unchanged. Calcified plaque the thoracic aortic arch. Single lead lef t subclavian pacer. Pulmonary vascular congestion with interstitial coarsening. No pneumothorax. Righ t greater left pleural effusions. Right midlung and right greater than left bibasilar consolidation. Slightly improved aeration of the lungs. Degenerative changes of the shoulders and spine. IMPRESSION: 1. Cardiomegaly with persistent pulmonary edema. There is slightly improved aeration of the lungs. 2. Unchanged pleural effusions. 3. Right midlung and right greater than left bibasilar consolidation. ACT 112: Negative or not required by law. The above report was generated using voice recognition software. It may contain grammatical, syntax o r spelling errors. Electronically signed by: Haim Norris M.D. 08/25/2019 8:39 AM
[2019-08-25] MEDS ORDERED: FUROSEMIDE 40 MG in SYRINGE 0 ML IV ONE (08:45)
--- NOTE | 2019-08-25 12:00 | Pulmonology Progress Note ---
Date of Service August 25, 2019 Assessment & Plan (1) Acute and chronic respiratory failure ([id number]): --Acute on chronic hypoxic respiratory failure Secondary to diastolic CHF exacerbation Continue with diuresis as tolerated O2 supplementation to keep oxygen saturation between 90 to 92% BiPAP 10/6 PRN shortness of breath --Bilateral pleural effusion Likely secondary to underlying HFpEF and CKD Patient has pleural effusion dating back to 06/2018 Patient had multiple thoracentesis done in the past, 4 times in the last year last one being in March 2019 All of which were transudative and negative for malignancy, etiology likely being CKD and HFpEF. --Adenocarcinoma of the lung Right upper lobe diagnosed 11/09/2017, status post chemotherapy which was not able to be completed because of deteriorating clinical status of the patient. Patient also had an EBUS done in April 2018 to look at mediastinal adenopathy which was negative for any metastatic disease --SHIRA As per the previous records patient had moderate SHIRA but was not compliant with CPAP so the machine was taken away Recommend using BiPAP nightly while in the hospital if patient is agreeable Unsure if the patient has COPD. PFT done April 2018 shows nonspecific pattern with severe decrease in DLCO. Patient follows up with Dr. ruano as an outpatient. Continue with inhaled therapy for the time being. Plan: Chest x-ray from today personally reviewed: There is improved aeration, bilateral pleural effusions still appreciated more on the right side. Patient is -1.5 L since coming to the hospital. Lasix was held yesterday because of bump in creatinine. Would recommend aggressive diuresis. Patient did state that she felt better when she had thoracentesis done in the past. Hold apixaban starting today we will see how the patient is doing clinically on Wednesday to decide whether to pursue thoracentesis or not. I would not be aggressive with pursuing thoracentesis on on a patient who has CKD, on apixaban for A. fib which increases her risk of complications. On talking today with the patient she was not sure about persueing thoracentesis. Recommend palliative care consult to define goals of care for the patient. Please note the above document was generated using voice recognition software. It may contain grammatical, syntax or spelling errors. (2) Acute on chronic heart failure with preserved ejection fraction (HFpEF): (3) Pleural effusion, bilateral: (4) Atrial fibrillation with RVR: (5) Adenocarcinoma of lung: Laterality: right Qualified Code(s): C34.91 - Malignant neoplasm of unspecified part of right bronchus or lung Admission and Anticipated Discharge Date Admission Date: August 21, 2019 Anticipated date of discharge: 08/24/19 Subjective Patient seen and examined at bedside. No acute distress, no adverse events overnight. Patient is in pleasant mood today. Resting comfortably on the chair. Denies any chest pain, shortness of breath is significantly improved. Denies any headache, no nausea or vomiting. Good appetite. Urinating well. Review of Systems Review of Systems: All systems reviewed & are unremarkable except as noted in HPI & below Physical Exam Physical Exam: Constitutional: No acute distress, frail-appearing HEENT: EOMI, PERRLA, arcus senilis bilaterally, bruising appreciated on the right forehead Respiratory system: Decreased air entry bilaterally, positive crackles bilateral lower lobes, no wheeze, no rhonchi CVS: S1-S2 positive, no murmurs or gallops, distant heart sounds Abdomen: Soft, nontender, nondistended, positive bowel sounds x4 Extremities: +2 pulses bilaterally radialis/ dorsalis pedis, no cyanosis, +2 pitting edema bilateral lower extremity Neuro: Awake alert oriented x3 Psych: Normal mood and affect G/U: No Mercer Skin: no rashes, warm and dry Lymphatic: no cervical or axillary lymphadenopathy Results & Data Results & Data ([facility]) Vital Signs (Past 12 Hours) Vital Signs Temp Pulse Resp BP Pulse Ox 08/25/19 10:59 36.4 C L 76 19 98/60 L 100 08/25/19 07:00 36.6 C 77 18 107/66 100 08/25/19 03:36 36.8 C 84 17 110/67 97 08/22/19 07:13 08/25/19 06:11 PG Care Time/CCT Total # of Minutes Spent Total Time Spent with Patient: Total time spent is greater than 50% in coordination of care (as documented) at patient's floor/unit and/or counseling patient: Coding Level of Care Code 26269 Subseq Hosp Care Lvl 3 Diagnoses Acute and chronic respiratory failure (vbhsi-fr-ghknikr) J96.20 Acute on chronic heart failure with preserved ejection fraction (HFpEF) I50.33 Pleural effusion, bilateral J90 Atrial fibrillation with RVR I48.91 Adenocarcinoma of lung C34.91 Laterality: right
--- NOTE | 2019-08-25 14:01 | Cardiology Progress Note ---
Date of Service August 25, 2019 Assessment & Plan (1) Acute on chronic heart failure with preserved ejection fraction (HFpEF): (2) Acute on chronic renal failure: (3) Pleural effusion, bilateral: (4) Hypoxia: (5) Chronic atrial fibrillation: (6) Tachy-rex syndrome: (7) Adenocarcinoma of lung: Restart Lasix, however, reduce frequency to once daily. Follow daily weight, fluid balance, GFR, and electrolytes. Heart rate is controlled. Continue metoprolol, diltiazem, and renally dosed Eliquis. Poor prognosis. Subjective Patient seen and examined at the bedside. More alert today. Denies chest pain or shortness of breath. Telemetry demonstrates rate controlled atrial fibrillation with demand ventricular pacing. Patient denies orthopnea or PND. No chest discomfort. Creatinine trending downward this a.m. Lasix restarted. Repeat chest x-ray demonstrates slightly improved lung aeration. Pleural effusions unchanged. Review of Systems Review of Systems: Unobtainable due to cognitive status Physical Exam Constitutional: well developed, + ill appearing, + thin, + frail appearing and cooperative; no acute distress Respiratory: no respiratory distress and no labored breathing (No conversational dyspnea) Auscultation: + diminished lung sounds (Right base and mid lung field.) and + rales (Scant Rales at the bases bilaterally); no crackles, no rhonchi and no wheezes Cardiovascular: Rate/Rhythm: + irregularly irregular Heart Sounds: normal S1 and normal S2; no murmur and no cardiac rub Vessels: no JVD and no carotid bruit Extremities: + edema (1+ bilateral pretibial edema) Gastrointestinal (Abdomen): Inspection/Auscultation: normal bowel sounds; abdomen not distended Percussion/Palpation: abdomen soft; abdomen nontender, no guarding and abdomen not rigid Musculoskeletal: Extremities: + abnormal strength Gait: + abnormal gait Skin: no rashes, warm and dry Neurologic: moves all extremities; no focal motor deficits Speech / Cognition: normal speech Psychiatric: Mood: + anxious mood Insight: + poor insight Judgement: + limited judgement Results & Data Vital Signs (Past 12 Hours) Vital Signs Temp Pulse Resp BP Pulse Ox 08/25/19 10:59 36.4 C L 76 19 98/60 L 100 08/25/19 07:00 36.6 C 77 18 107/66 100 08/25/19 03:36 36.8 C 84 17 110/67 97 (1) Acute on chronic renal failure Acute renal failure type: unspecified Chronic kidney disease stage: stage 3 (moderate) Qualified Code(s): N17.9 - Acute kidney failure, unspecified; N18.3 - Chronic kidney disease, stage 3 (moderate) (2) Adenocarcinoma of lung Laterality: right Qualified Code(s): C34.91 - Malignant neoplasm of unspecified part of right bronchus or lung
--- NOTE | 2019-08-25 16:07 | Hospitalist Progress Note ---
Date of Service August 25, 2019 Assessment & Plan Admission and Anticipated Discharge Date Admission Date: August 21, 2019 Anticipated date of discharge: 08/24/19 Subjective ATTENDING NOTE : spoke with Pt's son LUDIVINA Stratton Valentine updated regarding pt's current status also had discussion regarding pt's poor prognosis , goals of care Son reports pt has advanced directive/living will at [facility] -her code status is DNR/DNI adjusted her code status in [facility] son is willing to have Palliative care /hospice discussion after being discharged to [facility] Naomi Vann MD Results & Data Results & Data ([facility]) Vital Signs (Past 12 Hours) Vital Signs Temp Pulse Resp BP Pulse Ox 08/25/19 15:09 36.4 C L 69 16 90/55 L 99 08/25/19 10:59 36.4 C L 76 19 98/60 L 100 08/25/19 07:00 36.6 C 77 18 107/66 100
[2019-08-26] MEDS: TRAZODONE HCL 50 MG TAB PO PRN ×2 (01:38→20:51)
[2019-08-26] MEDS: UMECLIDINIUM BROMIDE 62.5MCG/BLISTER 7 PUFFS/INHALER INH SCH (07:58)
[2019-08-26] MEDS: FLUTICASONE/VILANTEROL 100/25MCG 14 PUFFS/INHALER INH SCH (07:58)
[2019-08-26] MEDS: ASPIRIN 81 MG ECTAB PO SCH (07:59)
[2019-08-26] MEDS: FOLIC ACID 1 MG TAB PO SCH (07:59)
[2019-08-26] MEDS: PANTOprazole 40 MG TAB PO SCH (07:59)
[2019-08-26] MEDS: POTASSIUM CHLORIDE 10 MEQ TABCR PO SCH (07:59)
[2019-08-26] MEDS: METOPROLOL TARTRATE 100 MG TAB PO SCH ×2 (07:59→20:51)
[2019-08-26] MEDS: FUROSEMIDE 40 MG in SYRINGE 0 ML IV SCH (08:00)
[2019-08-26] MEDS: APIXABAN 2.5 MG TAB PO SCH ×2 (08:00→20:52)
[2019-08-26] MEDS: POLYETHYLENE (MIRALAX) 17 GM PACK PO SCH (08:05)
[2019-08-26] MEDS: DOCUSATE SODIUM 100 MG CAP PO SCH ×2 (08:05→20:51)
[2019-08-26] MEDS: MAGNESIUM OXIDE 400 MG TAB PO SCH (11:22)
--- NOTE | 2019-08-26 11:49 | Pulmonology Progress Note ---
Date of Service August 26, 2019 Assessment & Plan (1) Acute and chronic respiratory failure ([id number]): --Acute on chronic hypoxic respiratory failure Secondary to diastolic CHF exacerbation Continue with diuresis as tolerated O2 supplementation to keep oxygen saturation between 90 to 92% BiPAP 10/6 PRN shortness of breath --Bilateral pleural effusion Likely secondary to underlying HFpEF and CKD Patient has pleural effusion dating back to 06/2018 Patient had multiple thoracentesis done in the past, 4 times in the last year last one being in March 2019 All of which were transudative and negative for malignancy, etiology likely being CKD and HFpEF. --Adenocarcinoma of the lung Right upper lobe diagnosed 11/09/2017, status post chemotherapy which was not able to be completed because of deteriorating clinical status of the patient. Patient also had an EBUS done in April 2018 to look at mediastinal adenopathy which was negative for any metastatic disease --SHIRA As per the previous records patient had moderate SHIRA but was not compliant with CPAP so the machine was taken away Recommend using BiPAP nightly while in the hospital if patient is agreeable Unsure if the patient has COPD. PFT done April 2018 shows nonspecific pattern with severe decrease in DLCO. Patient follows up with Dr. ruano as an outpatient. Continue with inhaled therapy for the time being. Plan: Patient is -1.1 L since coming to the hospital. Patient does not have a Mercer so the accuracy of output unsure. Recommend aggressive diuresis. Patient clinically doing significantly better saturating 93% on 3 days nasal cannula with heart of 71 at rest. Went down to 2 L nasal cannula. Patient is diuresing with Lasix. Case was discussed with Dr. Vann on 08/25/2019. Patient will have palliative consultation. Given that there is significant clinical improvement in patient shortness of breath would continue with diuretics. Patient has bilateral pleural effusion more on the right side we given patient is clinically not short of breath r ecommend to continue treating underlying diastolic CHF and CKD. No plans for thoracentesis. Will sign off. Recall if needed. Please note the above document was generated using voice recognition software. It may contain grammatical, syntax or spelling errors. (2) Acute on chronic heart failure with preserved ejection fraction (HFpEF): (3) Pleural effusion, bilateral: (4) Atrial fibrillation with RVR: (5) Adenocarcinoma of lung: Laterality: right Qualified Code(s): C34.91 - Malignant neoplasm of unspecified part of right bronchus or lung Admission and Anticipated Discharge Date Admission Date: August 21, 2019 Anticipated date of discharge: 08/24/19 Subjective Patient seen and examined at bedside. No acute distress, no adverse events overnight. Patient states that shortness of breath is improved. Denies any chest pain, no dizziness, no headache, no nausea, no vomiting. Good appetite. Urinating well. Review of Systems Review of Systems: All systems reviewed & are unremarkable except as noted in HPI & below Physical Exam Physical Exam: Constitutional: No acute distress, frail-appearing HEENT: EOMI, PERRLA, arcus senilis bilaterally, bruising appreciated on the right forehead Respiratory system: Decreased air entry bilaterally, positive crackles bilateral lower lobes, no wheeze, no rhonchi CVS: S1-S2 positive, no murmurs or gallops, distant heart sounds Abdomen: Soft, nontender, nondistended, positive bowel sounds x4 Extremities: +2 pulses bilaterally radialis/ dorsalis pedis, no cyanosis, +2 pi tting edema bilateral lower extremity Neuro: Awake alert oriented x3 Psych: Normal mood and affect G/U: No Mercer Skin: no rashes, warm and dry Lymphatic: no cervical or axillary lymphadenopathy Results & Data Results & Data ([facility]) Vital Signs (Past 12 Hours) Vital Signs Temp Pulse Pulse Resp BP Pulse Ox 08/26/19 07:26 86 08/26/19 07:13 36.4 C L 86 20 126/78 100 08/26/19 04:00 36.4 C L 89 14 96 08/22/19 07:13 08/25/19 06:11 PG Care Time/CCT Total # of Minutes Spent Total Time Spent with Patient: Total time spent is greater than 50% in coordination of care (as documented) at patient's floor/unit and/or counseling patient: Coding Level of Care Code 05689 Subseq Hosp Care Lvl 2 Diagnoses Acute and chronic respiratory failure ([id number]) J96.20 Acute on chronic heart failure with preserved ejection fraction (HFpEF) I50.33 Pleural effusion, bilateral J90 Atrial fibrillation with RVR I48.91 Adenocarcinoma of lung C34.91 Laterality: right
--- NOTE | 2019-08-26 11:53 | Hospitalist Progress Note ---
Date of Service August 26, 2019 Assessment & Plan (1) Acute exacerbation of CHF (congestive heart failure): symptoms improved after IV lasix resumed Cxray shows persisted pleural effusion cont to monitor vol staus presented with acute hypoxemic respiratory failure due to : acute decompensation of chronic CHF with diastolic heart failure ( HFpEF) on IV Lasix 40 mg BID over all prognosis remains poor ACUTE RENAL FAILURE WITH CKD STAGE 4 monitor BMP -lab ordered for today , will follow lasix resumed as pt was having s/s of vol overload /pulm congestion (2) Pleural effusion, bilateral: possible combination of decompensated CHF vs recurrent pleural effusion due to lung CA ( adeno CA of lungs ) appreciate input from Pulmonology chronic bilateral plural effusion noted from chest imaging 06/2018 had multiple thoracentesis -showed no malignant cells in pleural fluid no indication for repeat thoracenthesis this admission cont diuresis as renal function improves over all prognosis poor given advanced age , multiple co morbidities palliative care consult to address goal of care recommended by Pulmonology spoke with Pt's son LUDIVINA Stratton Valentine updated regarding pt's current status also had discussion regarding pt's poor prognosis , goals of care Son reports pt has advanced directive/living will at [facility] -her code status is DNR/DNI adjusted her code status in [facility] son is willing to have Palliative care /hospice discussion after being discharged to [facility] Questionable bilateral infiltrates on imaging, however, patient is not reporting any recent infectious symptoms and nursing staff denies knowledge of any fevers, cough or chills in last few days. -- afebrile, no leukocytosis -- Covid 19 test: negative no indication for antibiotic treatment (3) Atrial fibrillation with RVR: rate controlled now continue metoprolol 100 BID and diltiazem 240mg daily, on Eliquis (4) Adenocarcinoma of lung: per admitting Service notes: chronic, RUL nonsmall cell lung cancer with 2.1 cm mass (Dx 11/09/2017). R pleural effusion pleural cytology negative for malignancy on several occasions in 2018. She completed 4 cycles of Alimta and carboplatin between 12/14/2017- 04/01/2018, but was unable to receive further chemotherapy because of contraindications and decline in physical condition. She was also deemed not a surgical candidate. had multiple thoracenthesis for chronic bilat pleural effusion /negative for malignant cells in pleural fluid no indication to repeat procedure this admission overall prognosis remains very poor (5) CVA, old, aphasia: chronic receptive and expressive aphasia on ASA, Eiquis (6) Stage 4 chronic kidney disease: baseline crea 0.9-1.1, follow daily BMP (7) COPD (chronic obstructive pulmonary disease): no signs of exacerbation (8) Diabetes mellitus, type II: A1C 5.9 in May 2019. avg bsg 100-120 will liberalize diet D/c insulin sliding scale (9) Anemia: due to chronic kidney disease Hb stable at basaline CODE STATUS : full code need to have discussion regarding goals of care and code status -given over all poor prognosis DVT PROPHYLAXIS : On Eliquis DISPOSITION resident at [facility] PT /OT eval prior to discharge (10) DVT prophylaxis: Eliquis per home regimen DISPOSITION : resident at [facility] PT/OT eval requested return back to personal nursing home when medically stable Admission and Anticipated Discharge Date Admission Date: August 21, 2019 Anticipated date of discharge: 08/24/19 Subjective breathing much improved today less short of breath able to lie flat /resolution of orthopnea no cough , no fever or chills denies of any other complains-no chest pain , no feeling of dizzy spell or lightheadedness remains in rate controlled Afib on monitor Review of Systems Review of Systems: All systems reviewed & are unremarkable except as noted in HPI & below Constitutional: + fatigue; no fever and no chills Respiratory: no cough, no dyspnea and no wheezing Cardiovascular: no chest pain, no dyspnea at rest, no orthopnea, no paroxysmal nocturnal dyspnea, no palpitations, no lightheadedness, no syncope and no edema Physical Exam Constitutional: WD/WN, vitals as above + thin; no acute distress Eyes: PERRL, conjunctivae normal, anicteric sclerae ENMT: external ear and nose normal, oropharynx normal Neck: trachea midline, no thyromegaly Respiratory: Auscultation: + rales; no rhonchi and no wheezes Cardiovascular: Rate/Rhythm: regular rate and regular rhythm Vessels: normal peripheral pulses Extremities: no pedal edema Gastrointestinal (Abdomen): Inspection/Auscultation: normal bowel sounds Percussion/Palpation: abdomen soft; abdomen nontender Musculoskeletal: Head/Neck/Chest: normocephalic, head atraumatic and neck supple Extremities: + abnormal strength (generalized weakness ); no cyanosis Skin: no rashes, warm and dry Neurologic: PERRL, EOMI, accommodation nl, no face palsy, no dysarthria Psychiatric: A+Ox3, euthymic affect Results & Data Results & Data ([facility]) Vital Signs (Past 12 Hours) Vital Signs Temp Pulse Pulse Resp BP Pulse Ox 08/26/19 07:26 86 08/26/19 07:13 36.4 C L 86 20 126/78 100 08/26/19 04:00 36.4 C L 89 14 96 (1) Acute exacerbation of CHF (congestive heart failure) Heart failure type: unspecified Qualified Code(s): I50.9 - Heart failure, unspecified (2) Adenocarcinoma of lung Laterality: right Qualified Code(s): C34.91 - Malignant neoplasm of unspecified part of right bronchus or lung
[2019-08-26 13:16] LABS: Creatinine Clr Calc Pharmacy 22.2 ml/min; Est GFR (African American) 41.7
[2019-08-27 07:31] LABS: Creatinine Clr Calc Pharmacy 23.2 ml/min; Est GFR (African American) 44.1
[2019-08-27] MEDS: FUROSEMIDE 40 MG in SYRINGE 0 ML IV SCH (08:17)
[2019-08-27] MEDS: FLUTICASONE/VILANTEROL 100/25MCG 14 PUFFS/INHALER INH SCH (08:17)
[2019-08-27] MEDS: UMECLIDINIUM BROMIDE 62.5MCG/BLISTER 7 PUFFS/INHALER INH SCH (08:17)
[2019-08-27] MEDS: FOLIC ACID 1 MG TAB PO SCH (08:18)
[2019-08-27] MEDS: METOPROLOL TARTRATE 100 MG TAB PO SCH ×2 (08:18→20:52)
[2019-08-27] MEDS: ASPIRIN 81 MG ECTAB PO SCH (08:18)
[2019-08-27] MEDS: PANTOprazole 40 MG TAB PO SCH (08:18)
[2019-08-27] MEDS: APIXABAN 2.5 MG TAB PO SCH ×2 (08:18→20:52)
[2019-08-27] MEDS: POTASSIUM CHLORIDE 10 MEQ TABCR PO SCH (08:18)
[2019-08-27] MEDS: DOCUSATE SODIUM 100 MG CAP PO SCH ×2 (08:19→20:52)
[2019-08-27] MEDS: POLYETHYLENE (MIRALAX) 17 GM PACK PO SCH (08:19)
--- NOTE | 2019-08-27 11:34 | Hospitalist Progress Note ---
Date of Service August 27, 2019 Assessment & Plan (1) Acute exacerbation of CHF (congestive heart failure): symptoms improved after IV lasix resumed Cxray shows persisted pleural effusion cont to monitor vol staus presented with acute hypoxemic respiratory failure due to : acute decompensation of chronic CHF with diastolic heart failure ( HFpEF) lasix changed to 40 mg PO BID ACUTE RENAL FAILURE WITH CKD STAGE 4 resolved cr at baseline 1.3 lasix resumed as pt was having s/s of vol overload /pulm congestion (2) Pleural effusion, bilateral: possible combination of decompensated CHF vs recurrent pleural effusion due to lung CA ( adeno CA of lungs ) appreciate input from Pulmonology chronic bilateral plural effusion noted from chest imaging 06/2018 had multiple thoracentesis -showed no malignant cells in pleural fluid no indication for repeat thoracenthesis this admission cont diuresis as renal function improves over all prognosis poor given advanced age , multiple co morbidities palliative care consult to address goal of care recommended by Pulmonology spoke with Pt's son LUDIVINA Stratton Valentine updated regarding pt's current status also had discussion regarding pt's poor prognosis , goals of care Son reports pt has advanced directive/living will at [facility] -her code status is DNR/DNI adjusted her code status in [facility] son is willing to have Palliative care /hospice discussion after being discharged to [facility] Questionable bilateral infiltrates on imaging, however, patient is not reporting any recent infectious symptoms and nursing staff denies knowledge of any fevers, cough or chills in last few days. -- afebrile, no leukocytosis -- Covid 19 test: negative no indication for antibiotic treatment (3) Atrial fibrillation with RVR: rate controlled now continue metoprolol 100 BID and diltiazem 240mg daily, on Eliquis (4) Adenocarcinoma of lung: per admitting Service notes: chronic, RUL nonsmall cell lung cancer with 2.1 cm mass (Dx 11/09/2017). R pleural effusion pleural cytology negative for malignancy on several occasions in 2019. She completed 4 cycles of Alimta and carboplatin between 12/14/2017- 04/01/2018, but was unable to receive further chemotherapy because of contraindications and decline in physical condition. She was also deemed not a surgical candidate. had multiple thoracenthesis for chronic bilat pleural effusion /negative for malignant cells in pleural fluid no indication to repeat procedure this admission overall prognosis remains very poor (5) CVA, old, aphasia: chronic receptive and expressive aphasia on ASA, Eiquis (6) Stage 4 chronic kidney disease: baseline crea 0.9-1.1, follow daily BMP (7) COPD (chronic obstructive pulmonary disease): no signs of exacerbation (8) Diabetes mellitus, type II: A1C 5.9 in May 2019. avg bsg 100-120 will liberalize diet D/c insulin sliding scale (9) Anemia: due to chronic kidney disease Hb stable at basaline CODE STATUS : full code need to have discussion regarding goals of care and code status -given over all poor prognosis DVT PROPHYLAXIS : On Eliquis DISPOSITION resident at [facility] PT /OT eval prior to discharge (10) DVT prophylaxis: Eliquis per home regimen DIS[facility]ITION : [facility] requested return back to personal long term when medically stable Admission and Anticipated Discharge Date Admission Date: August 21, 2019 Anticipated date of discharge: 08/24/19 Subjective respiratory status stable no orthopena , no SOB on baseline home 02 Physical Exam Constitutional: WD/WN, vitals as above + thin; no acute distress Eyes: PERRL, conjunctivae normal, anicteric sclerae ENMT: external ear and nose normal, oropharynx normal Neck: trachea midline, no thyromegaly Respiratory: + uses accessory muscles; no cough Auscultation: + rales; no rhonchi and no wheezes Cardiovascular: Rate/Rhythm: regular rate and regular rhythm Vessels: normal peripheral pulses Extremities: no pedal edema Gastrointestinal (Abdomen): Inspection/Auscultation: normal bowel sounds Percussion/Palpation: abdomen soft; abdomen nontender Musculoskeletal: Head/Neck/Chest: normocephalic, head atraumatic and neck supple Extremities: + abnormal strength (generalized weakness ); no cyanosis Skin: no rashes, warm and dry Neurologic: PERRL, EOMI, accommodation nl, no face palsy, no dysarthria Psychiatric: A+Ox3, euthymic affect Results & Data Results & Data ([facility]) Vital Signs (Past 12 Hours) Vital Signs Temp Pulse Pulse Resp BP Pulse Ox 08/27/19 10:50 36.5 C 92 H 19 133/73 93 08/27/19 07:25 89 08/27/19 07:00 36.6 C 84 19 119/64 99 08/27/19 03:31 37 C 106 H 18 105/61 95 (1) Acute exacerbation of CHF (congestive heart failure) Heart failure type: unspecified Qualified Code(s): I50.9 - Heart failure, unspecified (2) Adenocarcinoma of lung Laterality: right Qualified Code(s): C34.91 - Malignant neoplasm of unspecified part of right bronchus or lung
[2019-08-27] MEDS: MAGNESIUM OXIDE 400 MG TAB PO SCH (11:51)
[2019-08-27] MEDS: FUROSEMIDE 40 MG TAB PO SCH (16:50)
[2019-08-28 07:03] LABS: Creatinine Clr Calc Pharmacy 23.2 ml/min; Est GFR (African American) 44.1
[2019-08-28] MEDS: POTASSIUM CHLORIDE 10 MEQ TABCR PO SCH (08:35)
[2019-08-28] MEDS: PANTOprazole 40 MG TAB PO SCH (08:35)
[2019-08-28] MEDS: FOLIC ACID 1 MG TAB PO SCH (08:36)
[2019-08-28] MEDS: ASPIRIN 81 MG ECTAB PO SCH (08:36)
[2019-08-28] MEDS: APIXABAN 2.5 MG TAB PO SCH ×2 (08:36→20:27)
[2019-08-28] MEDS: FUROSEMIDE 40 MG TAB PO SCH ×2 (08:36→16:55)
[2019-08-28] MEDS: METOPROLOL TARTRATE 100 MG TAB PO SCH ×2 (08:36→20:27)
[2019-08-28] MEDS: UMECLIDINIUM BROMIDE 62.5MCG/BLISTER 7 PUFFS/INHALER INH SCH (08:37)
[2019-08-28] MEDS: FLUTICASONE/VILANTEROL 100/25MCG 14 PUFFS/INHALER INH SCH (08:37)
[2019-08-28] MEDS: POLYETHYLENE (MIRALAX) 17 GM PACK PO SCH (08:38)
[2019-08-28] MEDS: DOCUSATE SODIUM 100 MG CAP PO SCH ×2 (08:41→20:27)
[2019-08-28] MEDS: MAGNESIUM OXIDE 400 MG TAB PO SCH (12:11)
--- NOTE | 2019-08-28 18:00 | Hospitalist Progress Note ---
Date of Service August 28, 2019 Assessment & Plan (1) Acute exacerbation of CHF (congestive heart failure): symptoms improved after with IV Lasix diuresis presented with acute hypoxemic respiratory failure due to : acute decompensation of chronic CHF with diastolic heart failure ( HFpEF) lasix changed to 40 mg PO BID renal function and vol status remains stable pt will be discharged to rehab /SNF with above dose ACUTE RENAL FAILURE WITH CKD STAGE 4 resolved cr at baseline 1.3 lasix resumed renal function been stable for last 48 hrs (2) Pleural effusion, bilateral: possible combination of decompensated CHF vs recurrent pleural effusion due to lung CA ( adeno CA of lungs ) appreciate input from Pulmonology chronic bilateral plural effusion noted from chest imaging 06/2018 had multiple thoracentesis -showed no malignant cells in pleural fluid no indication for repeat thoracenthesis this admission cont diuresis as renal function improves over all prognosis poor given advanced age , multiple co morbidities palliative care consult to address goal of care recommended by Pulmonology spoke with Pt's son LUDIVINA Stratton Valentine updated regarding pt's current status also had discussion regarding pt's poor prognosis , goals of care Son reports pt has advanced directive/living will at [facility] -her code status is DNR/DNI adjusted her code status in [facility] son is willing to have Palliative care /hospice discussion after being discharged to [facility] updated Pt at bedside regarding option for Hospice in future if her clinical condition declines and repeat hospitalization , treatment with lasix dose not help with symptoms pt was very tearful . understands the option for comfort measure /hospice is available if she needs in future -as for now will go to rehab to recover from the deconditioning -does not have cough , no fever or chills -- afebrile, no leukocytosis -- Covid 19 test: negative (3) Atrial fibrillation with RVR: rate controlled now continue metoprolol 100 BID and diltiazem 240mg daily, on Eliquis (4) Adenocarcinoma of lung: per admitting Service notes: chronic, RUL nonsmall cell lung cancer with 2.1 cm mass (Dx 11/09/2017). R pleural effusion pleural cytology negative for malignancy on several occasions in 2019. She completed 4 cycles of Alimta and carboplatin between 12/14/2017- 04/01/2018, but was unable to receive further chemotherapy because of contraindications and decline in physical condition. She was also deemed not a surgical candidate. had multiple thoracenthesis for chronic bilat pleural effusion /negative for malignant cells in pleural fluid no indication to repeat procedure this admission overall prognosis remains very poor (5) CVA, old, aphasia: chronic receptive and expressive aphasia on ASA, Eiquis (6) Stage 4 chronic kidney disease: renal function at approx baseline will be discharged on Lasix 40 mg PO BID repeat BMP in 1 week given advanced age and multiple co morbidities , conservative /supportive care would be appropriate pt found to be not a candidate for dialysis if renal function detoriates in future (7) COPD (chronic obstructive pulmonary disease): no signs of exacerbation (8) Diabetes mellitus, type II: A1C 5.9 in May 2019. avg bsg 100-120 will liberalize diet D/c insulin sliding scale (9) Anemia: due to chronic kidney disease Hb stable at basaline CODE STATUS : DNR/DNI DVT PROPHYLAXIS : On Eliquis DISPOSITION resident at [facility] Personal skilled nursing PT /OT eval appreciate input will need Skilled rahab medically stable to be transferred to rehab when bed available Admission and Anticipated Discharge Date Admission Date: August 21, 2019 Anticipated date of discharge: 08/24/19 Subjective doing well breathing has been stable denies complain of SOB , ARSHAD , orthopnea , no cough , no chills or fever willing to go to rehab for short term therapy Review of Systems Constitutional: no fever and no chills Respiratory: no cough, no dyspnea, no dyspnea on exertion, no sputum production and no wheezing Physical Exam Constitutional: WD/WN, vitals as above + thin; no acute distress Eyes: PERRL, conjunctivae normal, anicteric sclerae ENMT: external ear and nose normal, oropharynx normal Neck: trachea midline, no thyromegaly Respiratory: no cough Auscultation: no rhonchi and no wheezes Cardiovascular: Rate/Rhythm: regular rate and regular rhythm Vessels: normal peripheral pulses Extremities: no pedal edema Gastrointestinal (Abdomen): Inspection/Auscultation: normal bowel sounds Percussion/Palpation: abdomen soft; abdomen nontender Musculoskeletal: Head/Neck/Chest: normocephalic, head atraumatic and neck supple Extremities: no cyanosis Skin: no rashes, warm and dry Neurologic: PERRL, EOMI, accommodation nl, no face palsy, no dysarthria Psychiatric: A+Ox3, euthymic affect Results & Data Results & Data ([facility]) Vital Signs (Past 12 Hours) Vital Signs Temp Pulse Pulse Pulse Resp BP BP 08/28/19 15:26 75 08/28/19 14:41 36.5 C 71 18 95/55 L 08/28/19 11:04 36.3 C L 86 18 98/65 L 08/28/19 06:38 36.7 C 94 H 16 130/81 Pulse Ox 08/28/19 15:26 08/28/19 14:41 98 08/28/19 11:04 100 08/28/19 06:38 94 (1) Acute exacerbation of CHF (congestive heart failure) Heart failure type: unspecified Qualified Code(s): I50.9 - Heart failure, unspecified (2) Adenocarcinoma of lung Laterality: right Qualified Code(s): C34.91 - Malignant neoplasm of unspecified part of right bronchus or lung
[2019-08-28] MEDS: TRAZODONE HCL 50 MG TAB PO PRN ×2 (23:02)
[2019-08-29 06:38] LABS: Creatinine Clr Calc Pharmacy 21.3 ml/min; Est GFR (African American) 39.7; Est GFR (Non-African American) 34.2
[2019-08-29] MEDS: METOPROLOL TARTRATE 100 MG TAB PO SCH (08:14)
[2019-08-29] MEDS: FLUTICASONE/VILANTEROL 100/25MCG 14 PUFFS/INHALER INH SCH (08:14)
[2019-08-29] MEDS: APIXABAN 2.5 MG TAB PO SCH (08:15)
[2019-08-29] MEDS: FUROSEMIDE 40 MG TAB PO SCH (08:15)
[2019-08-29] MEDS: ASPIRIN 81 MG ECTAB PO SCH (08:15)
[2019-08-29] MEDS: FOLIC ACID 1 MG TAB PO SCH (08:16)
[2019-08-29] MEDS: PANTOprazole 40 MG TAB PO SCH (08:16)
[2019-08-29] MEDS: DOCUSATE SODIUM 100 MG CAP PO SCH (08:16)
[2019-08-29] MEDS: POTASSIUM CHLORIDE 10 MEQ TABCR PO SCH (08:16)
[2019-08-29] MEDS: POLYETHYLENE (MIRALAX) 17 GM PACK PO SCH (08:17)
[2019-08-29] MEDS: UMECLIDINIUM BROMIDE 62.5MCG/BLISTER 7 PUFFS/INHALER INH SCH (08:17)
[2019-08-29] MEDS: MAGNESIUM OXIDE 400 MG TAB PO SCH (11:50)
--- NOTE | 2019-08-29 15:11 | Discharge Summary ---
Date of Service August 29, 2019 Admission HPI Per Admitting Provider 79 yo F with a h/o heart failure and hospitalization 1 month ago presents with worsening shortness of breath and is found to have new infiltrates on CXR. She has recently had a stroke with deficits including receptive and expressive aphasia. Therefore, although she is oriented, obtaining the history is very difficult. I asked her multiple times whether or not she had been coughing. She was unable to give me a complete answer although did respond no initially, then appeared to change her mind and looked confused. She cannot tell me for how long she has been short of breath. She denies fevers, chest pain, increased work of breathing currently, no abdominal pain, diarrhea, changes in her stool. However, again she is a very poor historian. She did mention that she has fallen and records do reflect this. She has a bruise on her right forehead that is a darker purple. Neuro exam is grossly normal and she is able to ambulate in the room with minimal assistance. She is on Eliquis and stroke was thought to be embolic with her known history of atrial fibrillation. She is in atrial fibrillation today and heart rate is tachy in the low 100s. Lung auscultation is also difficult with minimal airflow noted. No rales, wheezes or crackles are heard. Of note, I did ask if we could place a Mercer which she initially agreed to, however, she became visibly scared and tearful about the catheter just prior to placement and she adamantly refused this despite knowing we will be giving her more diuretic. I could not gather from her what the concern was. ROS was otherwise negative and she confirmed that Viral is her point of contact. Historically she was admitted to [facility] 06/16/19-07/07/19. She had multiple issues including acute cholecystitis s/p lap ning c/b acute blood loss anemia and post-operative stroke. She also received treatment for acute diastolic CHF diuring this stay. She was sent to [facility] and did well with her rehab, then was sent back to [facility] on 07/25/19. At that time her weight was 91 lbs. Today her weight is up approximately 20 lbs. She is on 2L oxygen continuously at baseline. She denies eating any salt. Lasix 40 IV , Cefepime and Levaquin given in the ER. Principal Diagnosis ACUTE ON CHRONIC CONGESTIVE HEART FAILURE WITH DIASTOLIC DYFUNCTION CHRONIC BILATERAL PLEURAL EFFUSION HX OF LUNG CANCER NEGATIVE COVID -19 /SARS-CoV-2 PCR negative Discharge Exam Constitutional WD/WN, vitals as above + thin; no acute distress Eyes PERRL, conjunctivae normal, anicteric sclerae ENMT external ear and nose normal, oropharynx normal Neck trachea midline, no thyromegaly Respiratory no cough Auscultation: no rhonchi and no wheezes Cardiovascular Rate/Rhythm: regular rate and regular rhythm Vessels: normal peripheral pulses Extremities: no pedal edema Gastrointestinal (Abdomen) Inspection/Auscultation: normal bowel sounds Percussion/Palpation: abdomen soft; abdomen nontender Musculoskeletal Head/Neck/Chest: normocephalic, head atraumatic and neck supple Extremities: no cyanosis Skin no rashes, warm and dry Neurologic PERRL, EOMI, accommodation nl, no face palsy, no dysarthria Psychiatric A+Ox3, euthymic affect Discharge Data Allergies Allergy/AdvReac Type Severity Reaction Status Date / Time lisinopril Allergy Intermediate RASH Verified 08/21/19 10:37 zolpidem AdvReac Severe hallucinati Verified 08/21/19 10:37 ons Consultations 08/21/19 10:53 ED Decision to Admit Stat 08/21/19 14:05 Consult Case Management - Discharge Planning Routine 08/21/19 14:18 Consult Cardiology Routine 08/23/19 12:09 Consult Pulmonology Routine Hospital Course (1) Acute exacerbation of CHF (congestive heart failure): symptoms improved after with IV Lasix diuresis presented with acute hypoxemic respiratory failure due to : acute decompensation of chronic CHF with diastolic heart failure ( HFpEF) lasix changed to 40 mg PO BID renal function and vol status remains stable pt will be discharged to rehab /SNF with above dose ACUTE RENAL FAILURE WITH CKD STAGE 4 resolved cr at baseline 1.3 lasix resumed renal function been stable for last 48 hrs (2) Pleural effusion, bilateral: possible combination of decompensated CHF vs recurrent pleural effusion due to lung CA ( adeno CA of lungs ) appreciate input from Pulmonology chronic bilateral plural effusion noted from chest imaging 06/2018 had multiple thoracentesis -showed no malignant cells in pleural fluid no indication for repeat thoracenthesis this admission cont diuresis as renal function improves over all prognosis poor given advanced age , multiple co morbidities palliative care consult to address goal of care recommended by Pulmonology spoke with Pt's son LUDIVINA Grijalva updated regarding pt's current status also had discussion regarding pt's poor prognosis , goals of care Son reports pt has advanced directive/living will at [facility] -her code status is DNR/DNI adjusted her code status in [facility] son is willing to have Palliative care /hospice discussion after being discharged to [facility] updated Pt at bedside regarding option for Hospice in future if her clinical condition declines and repeat hospitalization , treatment with lasix dose not help with symptoms pt was very tearful . understands the option for comfort measure /hospice is available if she needs in future -as for now will go to rehab to recover from the deconditioning -does not have cough , no fever or chills -- afebrile, no leukocytosis -- Covid 19 test: negative (3) Atrial fibrillation with RVR: rate controlled now continue metoprolol 100 BID and diltiazem 240mg daily, on Eliquis (4) Adenocarcinoma of lung: per admitting Service notes: chronic, RUL nonsmall cell lung cancer with 2.1 cm mass (Dx 11/09/2017). R pleural effusion pleural cytology negative for malignancy on several occasions in 2019. She completed 4 cycles of Alimta and carboplatin between 12/14/2017- 04/01/2018, but was unable to receive further chemotherapy because of contraindications and decline in physical condition. She was also deemed not a surgical candidate. had multiple thoracenthesis for chronic bilat pleural effusion /negative for malignant cells in pleural fluid no indication to repeat procedure this admission overall prognosis remains very poor (5) CVA, old, aphasia: chronic receptive and expressive aphasia on ASA, Eiquis (6) Stage 4 chronic kidney disease: renal function at approx baseline will be discharged on Lasix 40 mg PO BID repeat BMP in 1 week given advanced age and multiple co morbidities , conservative /supportive care would be appropriate pt found to be not a candidate for dialysis if renal function detoriates in future (7) COPD (chronic obstructive pulmonary disease): no signs of exacerbation (8) Diabetes mellitus, type II: A1C 5.9 in May 2019. avg bsg 100-120 will liberalize diet D/c insulin sliding scale (9) Anemia: due to chronic kidney disease Hb stable at basaline CODE STATUS : DNR/DNI DVT PROPHYLAXIS : On Eliquis DISPOSITION resident at [facility] Personal skilled nursing PT /OT екатерина appreciate input will need Skilled rahab patient is stable to be transfrred to [facility] today Total Time Total Time Spent Total Time Spent (In Minutes): approx 35 mins Total Time Includes: Examination of the Patient, Discharge Planning and Medication Reconciliation Discharge Plan Discharge Items Patient Disposition: Transfer [facility] Reason For Visit: PNEUMONIA,HYPOXIA Discharge Diagnosis: ACUTE ON CHRONIC CONGESTIVE HEART FAILURE WITH DIASTOLIC DYFUNCTION CHRONIC BILATERAL PLEURAL EFFUSION HX OF LUNG CANCER NEGATIVE COVID -19 /SARS-CoV-2 PCR negative Activity: As commented below Activity Comment: continue physical and occupational therapy at the rehab Non-emergency contact: Primary Care Provider Call non-emergency contact if: you have any medication questions Follow-up/Referrals: Blaze Roy [Primary Care Provider] - Diet: Carb Consistent or DM2 and Heart Healthy Ambulatory Orders: Basic Metabolic Panel (Routine) Timeframe: 1 Week Location: Determined by Patient Ordered By: Naomi Gomez Attending Provider Instructions: Call your Primary Care doctor if any of the following symptoms or problems start or get worse: * Shortness of breath or difficulty breathing * Wake up at night short of breath * Chest pain * Cough * Swelling of your hands, feet, or legs * More fatigued or tired with your normal activity * Palpitations - sudden fast heart beats WEIGHT * Weigh yourself every morning after using the bathroom. * Use the same scale. * Wear the same amount of clothing. * Write your weight down on a chart. * Call your Primary Care doctor if you gain more than 2-3 pounds in 1-2 days. MEDICATIONS * Use this discharge instruction sheet for medication instructions. * Take your medications at the time your doctor ordered. * Do not skip a dose of your medicines. * If you miss a dose of medicine, take it as soon as possible, but DO NOT DOUBLE A DOSE. * Read your medicine information when you get home. * Know all of the side effects of your medicine. If in doubt, ask your pharmacist * Call your Primary Care doctor's office if you have any side effects. * Be sure all of your doctors know what medicine and herbs you take (including cold, flu, and herbal medicine). Take the following with you to your follow-up doctor appointments: * Weight Chart * Medication List * List of questions Do not drink excessive alcohol, beer or wine. Pending Studies at Discharge: Yes Studies:: lab : basic metabolic panel in 1 week , please fax the report of the result to pt's family physician at the [facility] Stand-Alone Forms: My [facility] Skilled Items Patient informed of condition?: Yes DNR: Yes Discharge Level of Care: Skilled Communicable Disease: No Discharge Prognosis: Stable Lines: None Urinary Catheter: No Medications and DC Order Prescriptions: Continued Symbicort 160-4.5 mcg/actuation HFA aerosol inhaler 2 puff INHALATION Q12H Qty: 10.2 RF: 11 furosemide 40 mg tablet 40 mg PO BID Qty: 30 RF: 0 Vitron-C 65 mg iron- 125 mg tablet,delayed release (DR/EC) 1 tab PO DAILY RF: 0 trazodone 50 mg tablet 25 mg PO HS PRN (Reason: Insomnia) RF: 0 nystatin 100,000 unit/gram powder 1 appln TOP BID RF: 0 metoprolol tartrate 100 mg Tablet 100 mg PO BID RF: 0 pantoprazole 40 mg Tablet,Delayed Release (Dr/Ec) 40 mg PO DAILY RF: 0 nitroglycerin 0.4 mg Tablet, Sublingual 0.4 mg Sublingual UD PRN (Reason: Chest Pain) RF: 0 folic acid 1 mg Tablet 1 mg PO DAILY RF: 0 docusate sodium 100 mg Capsule 100 mg PO BID RF: 0 polyethylene glycol 3350 [Miralax] 17 gram/dose Powder 17 g PO QAM RF: 0 Spiriva Respimat 2.5 mcg/actuation mist 2 inh INHALATION DAILY RF: 0 potassium chloride 10 mEq tablet,ER particles/crystals 10 meq PO DAILY RF: 0 diltiazem HCl 240 mg Capsule,Extended Release 24 Hr 240 mg PO QAM RF: 0 aspirin [Aspirin Low Dose] 81 mg Tablet,Delayed Release (Dr/Ec) 81 mg PO QAM RF: 0 Eliquis 2.5 mg Tablet 2.5 mg PO BID RF: 0 magnesium oxide 400 mg magnesium capsule 400 mg PO DAILY RF: 0 Discharge Orders: Discharge Order (Routine); Ordered 08/29/19 Ordered By: Naomi Vann Admission Data Admit Date/Time: 08/21/19 11:27 Attending Provider: Naomi Vann Admit Provider: Sabiha Degroot Primary Care Provider: Blaze Roy Other Providers: Stephen Bear ; Brian Zhang ; Sabiha Degroot ; Maricel Thomas ; [place] Other Interventions: Discharge Summary Assessment (RN) Last Done: 08/29/19 14:11
== END 2019-08-29 16:05 | DRG 291 ==
LOC: ED 08:57 → SUATTDRO 11:27 → 2S 11:27